=== PATIENT | male | born 1960 | race African-American/Black ===

== ENCOUNTER 2017-08-06 14:34 | Inpatient (IN) | payer MEDICAID ==
[~2017-08-06] VITALS: Ht 182.9 cm; Wt 88.9 kg
[~2017-08-06 14:34] MED LIST: ASPI81CH43 PO; CARV3.1240 PO; FURO40TA PO; LISI-275 PO; METF-370 PO; SPIR25TA89 PO; WARF5TAB71 PO
[2017-08-06 15:46] LABS: Basophils # (auto) 0 uL; Basophils % (auto) 0.7 % (0.0-2.0); Eosinophils # (auto) 0.1 uL; Eosinophils % (auto) 1.7 % (0.0-7.0); Hematocrit 47.7 % (41.0-53.0); Hemoglobin 15.9 g/dL (13.5-17.5); Lymphocytes % (auto) 18.2 % (10.0-50.0); Mean Corpuscular Hemoglobin 32.3 pg (28.0-32.0); Mean Corpuscular Hgb Conc. 33.4 g/dL (32.0-36.0); Mean Corpuscular Volume 96.6 fL (80.0-100.0); Monocytes # (auto) 0.6 uL; Neutrophils % (auto) 69.4 % (37.0-80.0); Nucleated Red Blood Cells % 0.2 %; Platelet Count (auto) 187 10^3/uL (140-450); Red Blood Cells 4.94 10^6/uL (4.5-5.90); Red Cell Distribution Width 16.6 % (11.8-14.3); White Blood Cell 5.7 10^3/uL (4.4-10.8)
[2017-08-06 16:06] LABS: Albumin 3.6 g/dL (3.4-5.0); Calcium 8.4 mg/dL (8.5-10.1); Magnesium 2.3 mg/dL (1.6-2.6); Potassium 4.2 mmol/L (3.5-5.1); Total Protein 6.7 g/dL (6.4-8.2)
[2017-08-06] MEDS ORDERED: MORPHINE SULF INJ 2 MG/ML SYRINGE 1ML IV PRN ×2 (17:15)
[2017-08-06] MEDS ORDERED: ZOLPIDEM TARTRATE 5 MG TAB PO PRN (17:15)
[2017-08-06] MEDS ORDERED: ACETAMINOPHEN 325 MG TAB PO PRN (17:15)
[2017-08-06] MEDS ORDERED: NITROGLYCERIN 0.4 MG SL TAB SL PRN ×2 (17:15)
[2017-08-06] MEDS ORDERED: ONDANSETRON HCL 4 MG/2 ML VIAL IV PRN (17:15)
[2017-08-06] MEDS ORDERED: ALUM & MAG HYDROX-SIMETH LIQ(MAALOX) 30 ML PO ONE (17:15)
[2017-08-06] MEDS ORDERED: DEXTROSE (50%) 50ML SYRG IV PRN (17:30)
[2017-08-06 18:43] LABS: INR 1.19 (0.9-1.15)
[2017-08-06] MEDS: CARVEDILOL 3.125 MG TAB PO SCH (21:44)
[2017-08-06] MEDS: InsuLIN REG 1unit/0.01ml Soln (100units/ml) SC SCH (21:44)
[2017-08-06] MEDS: ATORVASTATIN 20 MG TAB PO SCH (21:44)
[2017-08-06] MEDS: SODIUM CHLOR 0.9% PF (SALINE LOCK) 10ML VIAL IV SCH (21:53)
[2017-08-06] MEDS: diphenhdrAMINE HCL 25 MG CAP PO PRN (21:53)
[2017-08-06] MEDS: LORazepam 0.5 MG TAB PO PRN (21:53)
[2017-08-06] MEDS: ACCU-CHEK COMFORT CURVE STRIP VI SCH (21:53)
[2017-08-07] VITALS (7 sets, daily range): BP systolic 99–123; BP diastolic 45–80
[2017-08-07 05:35] LABS: Basophils # (auto) 0 uL; Basophils % (auto) 0.6 % (0.0-2.0); Eosinophils # (auto) 0.2 uL; Eosinophils % (auto) 3.2 % (0.0-7.0); Hematocrit 45.8 % (41.0-53.0); Hemoglobin 15.2 g/dL (13.5-17.5); Lymphocytes # (auto) 1.1 uL; Lymphocytes % (auto) 19.5 % (10.0-50.0); Mean Corpuscular Hemoglobin 31.8 pg (28.0-32.0); Mean Corpuscular Hgb Conc. 33.1 g/dL (32.0-36.0); Mean Corpuscular Volume 96.1 fL (80.0-100.0); Monocytes # (auto) 0.5 uL; Monocytes % (auto) 8.9 % (0.0-12.0); Neutrophils % (auto) 67.8 % (37.0-80.0); Nucleated Red Blood Cells % 0.1 %; Platelet Count (auto) 181 10^3/uL (140-450); Red Blood Cells 4.76 10^6/uL (4.5-5.90); Red Cell Distribution Width 16.4 % (11.8-14.3); White Blood Cell 5.9 10^3/uL (4.4-10.8)
[2017-08-07] MEDS: SODIUM CHLOR 0.9% PF (SALINE LOCK) 10ML VIAL IV SCH ×3 (05:58→21:19)
[2017-08-07] MEDS: InsuLIN REG 1unit/0.01ml Soln (100units/ml) SC SCH ×4 (05:59→21:19)
[2017-08-07 06:06] LABS: Albumin 3.4 g/dL (3.4-5.0); BUN/Creatinine Ratio 28.8; Bilirubin, Total 1.7 mg/dL (0.2-1.0); Calcium 8.7 mg/dL (8.5-10.1); Magnesium 2.1 mg/dL (1.6-2.6); Potassium 4.2 mmol/L (3.5-5.1); Total Protein 6.6 g/dL (6.4-8.2)
[2017-08-07] MEDS: ACCU-CHEK COMFORT CURVE STRIP VI SCH ×4 (06:08→22:00)
[2017-08-07] MEDS: DOCUSATE SOD 100 MG CAP PO SCH (09:50)
[2017-08-07] MEDS: ASPirin 81 mg TAB PO SCH (09:50)
[2017-08-07] MEDS: POTASSIUM CHL 10 Meq TABLET PO SCH (09:51)
[2017-08-07] MEDS: CARVEDILOL 3.125 MG TAB PO SCH ×2 (09:51→21:13)
[2017-08-07] MEDS: FUROSEMIDE 40 MG TAB PO SCH (09:51)
[2017-08-07] MEDS: LISINOPRIL 5 MG TAB PO SCH (09:52)
[2017-08-07] MEDS: CLOPIDOGREL BISULFATE 75 MG TAB PO SCH (09:52)
[2017-08-07] MEDS: ATORVASTATIN 20 MG TAB PO SCH (21:13)
[2017-08-07] MEDS: diphenhdrAMINE HCL 25 MG CAP PO PRN ×3 (21:13→21:19)
[2017-08-08] MEDS: LORazepam 0.5 MG TAB PO PRN ×2 (00:59→20:34)
[2017-08-08] MEDS ORDERED: MORPHINE SULFATE 4 MG/ML SYR/VIAL ONE (02:55)
[2017-08-08 05:00] VITALS: BP 108/71
[2017-08-08] MEDS: InsuLIN REG 1unit/0.01ml Soln (100units/ml) SC SCH ×4 (05:35→19:52)
[2017-08-08] MEDS: ACCU-CHEK COMFORT CURVE STRIP VI SCH ×4 (05:35→22:00)
[2017-08-08] MEDS: SODIUM CHLOR 0.9% PF (SALINE LOCK) 10ML VIAL IV SCH ×3 (05:35→19:52)
[2017-08-08 07:04] LABS: Basophils # (auto) 0.1 uL; Basophils % (auto) 1.4 % (0.0-2.0); Eosinophils # (auto) 0.2 uL; Eosinophils % (auto) 2.7 % (0.0-7.0); Hematocrit 47.3 % (41.0-53.0); Lymphocytes # (auto) 1.1 uL; Lymphocytes % (auto) 17.6 % (10.0-50.0); Mean Corpuscular Hemoglobin 32.4 pg (28.0-32.0); Mean Corpuscular Hgb Conc. 33.8 g/dL (32.0-36.0); Mean Corpuscular Volume 95.9 fL (80.0-100.0); Monocytes # (auto) 0.5 uL; Monocytes % (auto) 8.8 % (0.0-12.0); Neutrophils # (auto) 4.2 uL; Neutrophils % (auto) 69.5 % (37.0-80.0); Nucleated Red Blood Cells % 0.2 %; Platelet Count (auto) 177 10^3/uL (140-450); Red Blood Cells 4.94 10^6/uL (4.5-5.90); White Blood Cell 6.1 10^3/uL (4.4-10.8)
[2017-08-08 07:40] LABS: Albumin 3.7 g/dL (3.4-5.0); BUN/Creatinine Ratio 22.3; Bilirubin, Total 2.1 mg/dL (0.2-1.0); Calcium 8.8 mg/dL (8.5-10.1); Potassium 4.6 mmol/L (3.5-5.1); Total Protein 7.2 g/dL (6.4-8.2)
[2017-08-08 08:00] VITALS: BP 108/77
[2017-08-08 08:52] VITALS: BP 108/77
[2017-08-08] MEDS: DOCUSATE SOD 100 MG CAP PO SCH (08:57)
[2017-08-08] MEDS: ASPirin 81 mg TAB PO SCH (08:57)
[2017-08-08] MEDS: CARVEDILOL 3.125 MG TAB PO SCH ×2 (08:59→20:34)
[2017-08-08] MEDS: POTASSIUM CHL 10 Meq TABLET PO SCH (09:00)
[2017-08-08] MEDS: FUROSEMIDE 40 MG TAB PO SCH (09:00)
[2017-08-08] MEDS: CLOPIDOGREL BISULFATE 75 MG TAB PO SCH (09:01)
[2017-08-08] MEDS: LISINOPRIL 5 MG TAB PO SCH (09:01)
[2017-08-08 13:00] VITALS: BP 102/55
[2017-08-08 17:00] VITALS: BP 111/74
[2017-08-08 19:23] LABS: INR 1.38 (0.9-1.15); Partial Thromboplastin Time 30.3 sec (22.64-33.71); Prothrombin Time 15.1 sec (9.37-12.3)
[2017-08-08 22:00] VITALS: BP 110/79
[2017-08-08] MEDS: ATORVASTATIN 20 MG TAB PO SCH (22:00)
[2017-08-09 05:20] VITALS: BP 103/66
[2017-08-09] MEDS: SODIUM CHLOR 0.9% PF (SALINE LOCK) 10ML VIAL IV SCH ×3 (06:26→22:30)
[2017-08-09] MEDS: InsuLIN REG 1unit/0.01ml Soln (100units/ml) SC SCH ×4 (06:26→22:00)
[2017-08-09] MEDS: ACCU-CHEK COMFORT CURVE STRIP VI SCH ×4 (06:27→22:31)
[2017-08-09 08:00] VITALS: BP 115/75
[2017-08-09 09:00] VITALS: BP 116/81
[2017-08-09] MEDS: CLOPIDOGREL BISULFATE 75 MG TAB PO SCH (10:00)
[2017-08-09] MEDS: ASPirin 81 mg TAB PO SCH (10:00)
[2017-08-09] MEDS: LISINOPRIL 5 MG TAB PO SCH (10:11)
[2017-08-09] MEDS: FUROSEMIDE 40 MG TAB PO SCH (10:12)
[2017-08-09] MEDS: CARVEDILOL 3.125 MG TAB PO SCH ×2 (10:14→22:18)
[2017-08-09] MEDS: POTASSIUM CHL 10 Meq TABLET PO SCH (10:16)
[2017-08-09] MEDS: DOCUSATE SOD 100 MG CAP PO SCH (10:25)
[2017-08-09] MEDS ORDERED: LIDOCAINE 2%HCL (LOCAL ANESTH.) INJ 20ML MDV ONE ×2 (11:17→12:13)
[2017-08-09] MEDS ORDERED: IOHEXOL 350 MG/ML 100ML IJ ONE (11:19)
[2017-08-09] MEDS ORDERED: VANCOMYCIN HCL 1000 MG VL ONE (11:20)
[2017-08-09] MEDS ORDERED: ceFAZolin 1GM/50ML 50 ML IV ONE (11:20)
[2017-08-09] MEDS ORDERED: VANCOMYCIN 1GM/250ML 250 ML IV ONE (11:20)
[2017-08-09] MEDS ORDERED: fentaNYL CITRATE 100 MCG/2 ML VL ONE (11:40)
[2017-08-09] MEDS ORDERED: MIDAZOLAM HCL 1MG/1ML-2 ML VIAL ONE ×2 (11:41→12:05)
[2017-08-09] MEDS ORDERED: ceFAZolin 1GM VL ONE (13:00)
[2017-08-09] MEDS ORDERED: SODIUM CHLORIDE 0.9% 1,000 ML IV SCH (13:35)
[2017-08-09 17:00] VITALS: BP 108/77
[2017-08-09] MEDS: HYDROcodone-ACET 5/325MG TAB PO PRN (17:41)
[2017-08-09 22:00] VITALS: BP 127/75
[2017-08-09] MEDS ORDERED: VANCOMYCIN 1GM/250ML 250 ML IV SCH (22:00)
[2017-08-09] MEDS: ATORVASTATIN 20 MG TAB PO SCH (22:18)
[2017-08-09] MEDS: MORPHINE SULFATE 10 MG/ML INJ 1ML SDV IV PRN (23:37)
[2017-08-10 05:26] VITALS: BP 108/72
[2017-08-10] MEDS: SODIUM CHLOR 0.9% PF (SALINE LOCK) 10ML VIAL IV SCH ×3 (06:28→21:55)
[2017-08-10] MEDS: InsuLIN REG 1unit/0.01ml Soln (100units/ml) SC SCH ×4 (06:28→21:56)
[2017-08-10] MEDS: ACCU-CHEK COMFORT CURVE STRIP VI SCH ×4 (06:28→21:56)
[2017-08-10] MEDS: MORPHINE SULFATE 10 MG/ML INJ 1ML SDV IV PRN ×3 (06:34→20:50)
[2017-08-10 08:00] VITALS: BP 103/67
[2017-08-10 09:00] VITALS: BP 103/67
[2017-08-10] MEDS: DOCUSATE SOD 100 MG CAP PO SCH (09:52)
[2017-08-10] MEDS: ASPirin 81 mg TAB PO SCH (09:52)
[2017-08-10] MEDS: POTASSIUM CHL 10 Meq TABLET PO SCH (09:53)
[2017-08-10] MEDS: CARVEDILOL 3.125 MG TAB PO SCH ×2 (09:53→21:56)
[2017-08-10] MEDS: FUROSEMIDE 40 MG TAB PO SCH (09:54)
[2017-08-10] MEDS: LISINOPRIL 5 MG TAB PO SCH (09:54)
[2017-08-10] MEDS: CLOPIDOGREL BISULFATE 75 MG TAB PO SCH (09:54)
[2017-08-10] MEDS: HYDROcodone-ACET 5/325MG TAB PO PRN (09:55)
[2017-08-10 13:00] VITALS: BP 102/53
[2017-08-10 17:00] VITALS: BP 96/63
[2017-08-10] MEDS: ATORVASTATIN 20 MG TAB PO SCH (21:56)
[2017-08-10 22:00] VITALS: BP 101/73
[2017-08-11] MEDS: HYDROcodone-ACET 5/325MG TAB PO PRN (01:28)
[2017-08-11 05:00] VITALS: BP 109/78
[2017-08-11] MEDS: SODIUM CHLOR 0.9% PF (SALINE LOCK) 10ML VIAL IV SCH (05:48)
[2017-08-11] MEDS: ACCU-CHEK COMFORT CURVE STRIP VI SCH ×2 (06:16→11:30)
[2017-08-11] MEDS: MORPHINE SULFATE 10 MG/ML INJ 1ML SDV IV PRN (06:17)
[2017-08-11] MEDS: InsuLIN REG 1unit/0.01ml Soln (100units/ml) SC SCH ×2 (06:17→11:30)
[2017-08-11 06:46] LABS: Basophils # (auto) 0 uL; Basophils % (auto) 0.4 % (0.0-2.0); Eosinophils # (auto) 0.1 uL; Eosinophils % (auto) 2.1 % (0.0-7.0); Hemoglobin 14.4 g/dL (13.5-17.5); Lymphocytes # (auto) 1.1 uL; Mean Corpuscular Hemoglobin 32.4 pg (28.0-32.0); Mean Corpuscular Hgb Conc. 33.5 g/dL (32.0-36.0); Mean Corpuscular Volume 96.7 fL (80.0-100.0); Monocytes # (auto) 0.7 uL; Monocytes % (auto) 12.7 % (0.0-12.0); Neutrophils # (auto) 3.6 uL; Neutrophils % (auto) 64.8 % (37.0-80.0); Nucleated Red Blood Cells % 0.2 %; Platelet Count (auto) 165 10^3/uL (140-450); Red Blood Cells 4.44 10^6/uL (4.5-5.90); Red Cell Distribution Width 16.3 % (11.8-14.3); White Blood Cell 5.6 10^3/uL (4.4-10.8)
[2017-08-11 07:05] LABS: BUN/Creatinine Ratio 24.4; Calcium 8.8 mg/dL (8.5-10.1); Magnesium 2.1 mg/dL (1.6-2.6); Potassium 3.9 mmol/L (3.5-5.1)
[2017-08-11 09:00] VITALS: BP 114/57
[2017-08-11] MEDS: DOCUSATE SOD 100 MG CAP PO SCH (10:00)
[2017-08-11] MEDS: CLOPIDOGREL BISULFATE 75 MG TAB PO SCH (10:03)
[2017-08-11] MEDS: ASPirin 81 mg TAB PO SCH (10:03)
[2017-08-11] MEDS: CARVEDILOL 3.125 MG TAB PO SCH (10:04)
[2017-08-11] MEDS: POTASSIUM CHL 10 Meq TABLET PO SCH (10:05)
[2017-08-11] MEDS: FUROSEMIDE 40 MG TAB PO SCH (10:05)
[2017-08-11] MEDS: LISINOPRIL 5 MG TAB PO SCH (10:06)
[2017-08-11 11:24] VITALS: BP 114/87
== END 2017-08-11 12:25 | disposition home or self-care (01) | DRG 161 ==
LOC: EDBD 14:34 → ER 14:34 → TELE 14:35 → TELE-WESTW 21:00
PROVIDERS: ADMIT Internal Medicine; ATTEND Internal Medicine
PROC: 0JH609Z Insertion of Cardiac Resynchronization Defibrillator Pulse Generator into Chest Subcutaneous Tissue and Fascia, Open Approach (ICD-10-PCS; principal; 2017-08-09)
PROC: 02HL3KZ Insertion of Defibrillator Lead into Left Ventricle, Percutaneous Approach (ICD-10-PCS; 2017-08-09)
PROC: 02HK3KZ Insertion of Defibrillator Lead into Right Ventricle, Percutaneous Approach (ICD-10-PCS; 2017-08-09)
DX: R07.89 Other chest pain (principal); I50.43 Acute on chronic combined systolic (congestive) and diastolic (congestive) heart failure; I24.9 Acute ischemic heart disease, unspecified; I42.9 Cardiomyopathy, unspecified; E83.51 Hypocalcemia; I25.10 Atherosclerotic heart disease of native coronary artery without angina pectoris; I11.0 Hypertensive heart disease with heart failure; E78.5 Hyperlipidemia, unspecified; R55 Syncope and collapse; I49.3 Ventricular premature depolarization; E11.9 Type 2 diabetes mellitus without complications; Z95.5 Presence of coronary angioplasty implant and graft; Z95.810 Presence of automatic (implantable) cardiac defibrillator; Z82.49 Family history of ischemic heart disease and other diseases of the circulatory system; Z86.718 Personal history of other venous thrombosis and embolism; Z86.711 Personal history of pulmonary embolism; Z88.8 Allergy status to other drugs, medicaments and biological substances
CPT/HCPCS: 33225; 33249; 36415; 71045; 80048; 80053; 80061; 82962; 83036; 83735; 83880; 84443; 84484; 85025; 85610; 85730; 86850; 86900; 86901; 87045; 87081; 87493; 87899; 93005; 94761; 99152; J0690; J2250; J2405

== ENCOUNTER 2017-12-07 13:35 | Inpatient (IN) | payer MEDICAID ==
[~2017-12-07] VITALS: Ht 182.9 cm; Wt 89.8 kg
[2017-12-07] MEDS ORDERED: ONDANSETRON HCL 4 MG/2 ML VIAL IM ONE (14:15)
[2017-12-07] MEDS ORDERED: MORPHINE SULFATE 4 MG/ML SYR/VIAL IV ONE (14:15)
[2017-12-07 14:33] LABS: Basophils # (auto) 0.1 uL; Basophils % (auto) 1.1 % (0.0-2.0); Eosinophils # (auto) 0.1 uL; Eosinophils % (auto) 2.3 % (0.0-7.0); Hematocrit 49.3 % (41.0-53.0); Hemoglobin 16.6 g/dL (13.5-17.5); Lymphocytes # (auto) 1.2 uL; Lymphocytes % (auto) 19.1 % (10.0-50.0); Mean Corpuscular Hemoglobin 31.6 pg (28.0-32.0); Mean Corpuscular Hgb Conc. 33.7 g/dL (32.0-36.0); Mean Corpuscular Volume 93.8 fL (80.0-100.0); Monocytes # (auto) 0.7 uL; Monocytes % (auto) 11.6 % (0.0-12.0); Neutrophils % (auto) 65.9 % (37.0-80.0); Nucleated Red Blood Cells % 0.1 %; Platelet Count (auto) 198 10^3/uL (140-450); Red Blood Cells 5.25 10^6/uL (4.5-5.90); Red Cell Distribution Width 16.6 % (11.8-14.3); White Blood Cell 6.1 10^3/uL (4.4-10.8)
[2017-12-07] MEDS ORDERED: LORazepam 0.5 MG TAB PO PRN (14:45)
[2017-12-07] MEDS ORDERED: ONDANSETRON HCL 4 MG/2 ML VIAL IV ONE (14:45)
[2017-12-07] MEDS ORDERED: DEXTROSE (50%) 50ML SYRG IV PRN (14:45)
[2017-12-07] MEDS ORDERED: MORPHINE SULFATE 4 MG/ML SYR/VIAL IV PRN ×2 (14:45)
[2017-12-07] MEDS ORDERED: ACETAMINOPHEN 500 MG TAB PO PRN (14:45)
[2017-12-07] MEDS ORDERED: PROMETHAZINE HCL 25 MG/ML 1ML IV PRN (14:45)
[2017-12-07] MEDS ORDERED: NITROGLYCERIN 0.4 MG SL TAB SL PRN (14:45)
[2017-12-07 14:46] LABS: INR 1.23 (0.9-1.15); Partial Thromboplastin Time 29.9 sec (22.64-33.71); Prothrombin Time 13.4 sec (9.37-12.3)
[2017-12-07 14:49] LABS: Alanine Aminotransferase 21 U/L (16-61); Albumin 3.5 g/dL (3.4-5.0); Anion Gap 8 (5-15); Aspartate Aminotransferase 19 U/L (15-37); BUN/Creatinine Ratio 18.6; Blood Urea Nitrogen 16 mg/dL (7-18); Calcium 8.6 mg/dL (8.5-10.1); Carbon Dioxide 25 mmol/L (21-32); Chloride 106 mmol/L (98-107); GFR African American 119 mL/min; GFR Non-African American 98 mL/min; Glucose 85 mg/dL (74-106); Potassium 3.9 mmol/L (3.5-5.1); Sodium 139 mmol/L (136-145)
[2017-12-07] MEDS: CARVEDILOL 3.125 MG TAB PO SCH (14:56)
[2017-12-07 15:17] LABS: Alkaline Phosphatase 135 U/L (45-117)
[2017-12-07 15:18] LABS: Bilirubin, Total 1.8 mg/dL (0.2-1.0); Total Protein 7.1 g/dL (6.4-8.2)
[2017-12-07] MEDS ORDERED: WARFARIN SODIUM 2.5 MG TAB PO ONE (17:00)
[2017-12-07] MEDS: ACCU-CHEK COMFORT CURVE STRIP VI SCH ×2 (17:26→21:38)
[2017-12-07] MEDS: InsuLIN REG 1unit/0.01ml Soln (100units/ml) SC SCH ×2 (17:27→22:00)
[2017-12-07 20:00] VITALS: BP 115/71
[2017-12-07] MEDS: MORPHINE SULFATE 8mg/ml INJ SDV IV PRN (21:28)
[2017-12-07] MEDS: ATORVASTATIN 20 MG TAB PO SCH (21:38)
[2017-12-07] MEDS: SODIUM CHLOR 0.9% PF (SALINE LOCK) 10ML VIAL/SYR IV SCH (21:39)
[2017-12-07] MEDS: TEMAZEPAM 15 MG CAP PO PRN (23:14)
[2017-12-08 04:45] VITALS: BP 108/68
[2017-12-08] MEDS: SODIUM CHLOR 0.9% PF (SALINE LOCK) 10ML VIAL/SYR IV SCH ×3 (06:00→21:32)
[2017-12-08] MEDS: ACCU-CHEK COMFORT CURVE STRIP VI SCH ×4 (06:36→21:32)
[2017-12-08] MEDS: InsuLIN REG 1unit/0.01ml Soln (100units/ml) SC SCH ×4 (06:49→22:00)
[2017-12-08] MEDS: MORPHINE SULFATE 8mg/ml INJ SDV IV PRN ×3 (06:59→21:31)
[2017-12-08 07:18] LABS: INR 1.16 (0.9-1.15); Partial Thromboplastin Time 29.1 sec (22.64-33.71); Prothrombin Time 12.7 sec (9.37-12.3)
[2017-12-08 07:22] LABS: Cholesterol 124 mg/dL (< 200); HDL Cholesterol 31 mg/dL (40-59); LDL Cholesterol 99 mg/dL (< 100); Triglycerides 87 mg/dL (< 150)
[2017-12-08 09:00] VITALS: BP 116/73
[2017-12-08] MEDS ORDERED: BUMETANIDE (0.25MG/ML) 4 ML VIAL IV ONE (10:00)
[2017-12-08] MEDS: CARVEDILOL 3.125 MG TAB PO SCH (10:00)
[2017-12-08] MEDS ORDERED: FUROSEMIDE 40 MG TAB PO SCH (10:00)
[2017-12-08] MEDS ORDERED: FUROSEMIDE 40 MG/4 ML VIAL IV ONE (10:30)
[2017-12-08] MEDS: PANTOPRAZOLE 40 MG TAB PO SCH (10:49)
[2017-12-08] MEDS: LISINOPRIL 5 MG TAB PO SCH (10:49)
[2017-12-08] MEDS: ASPirin 81 mg TAB PO SCH (10:50)
[2017-12-08] MEDS: NITROGLYCERIN 0.2MG/HR TOPICAL PATCH TD SCH (10:50)
[2017-12-08] MEDS: SPIRONOLACTONE 25 MG TAB PO SCH (10:52)
[2017-12-08 13:00] VITALS: BP 109/79
[2017-12-08 16:40] VITALS: BP 119/59
[2017-12-08] MEDS ORDERED: WARFARIN SODIUM 10 MG TAB PO ONE (17:00)
[2017-12-08] MEDS: ATORVASTATIN 20 MG TAB PO SCH (21:32)
[2017-12-08 22:00] VITALS: BP 105/66
[2017-12-08] MEDS: TEMAZEPAM 15 MG CAP PO PRN (22:59)
[2017-12-09 05:42] VITALS: BP 104/72
[2017-12-09] MEDS: SODIUM CHLOR 0.9% PF (SALINE LOCK) 10ML VIAL/SYR IV SCH ×3 (06:00→22:25)
[2017-12-09] MEDS: InsuLIN REG 1unit/0.01ml Soln (100units/ml) SC SCH ×4 (06:34→21:45)
[2017-12-09] MEDS: ACCU-CHEK COMFORT CURVE STRIP VI SCH ×4 (06:34→21:44)
[2017-12-09] MEDS: MORPHINE SULFATE 8mg/ml INJ SDV IV PRN ×3 (06:56→22:24)
[2017-12-09 07:23] LABS: Basophils # (auto) 0 uL; Basophils % (auto) 0.8 % (0.0-2.0); Eosinophils # (auto) 0.2 uL; Eosinophils % (auto) 4.7 % (0.0-7.0); Hematocrit 48.6 % (41.0-53.0); Hemoglobin 16.5 g/dL (13.5-17.5); Lymphocytes # (auto) 1.2 uL; Lymphocytes % (auto) 22.1 % (10.0-50.0); Mean Corpuscular Hemoglobin 31.6 pg (28.0-32.0); Mean Corpuscular Hgb Conc. 33.9 g/dL (32.0-36.0); Mean Corpuscular Volume 93.2 fL (80.0-100.0); Monocytes # (auto) 0.6 uL; Monocytes % (auto) 11.6 % (0.0-12.0); Neutrophils # (auto) 3.2 uL; Neutrophils % (auto) 60.8 % (37.0-80.0); Nucleated Red Blood Cells % 0.2 %; Platelet Count (auto) 206 10^3/uL (140-450); Red Blood Cells 5.21 10^6/uL (4.5-5.90); Red Cell Distribution Width 16.5 % (11.8-14.3); White Blood Cell 5.2 10^3/uL (4.4-10.8)
[2017-12-09 07:31] LABS: INR 1.16 (0.9-1.15); Partial Thromboplastin Time 29.9 sec (23.78-33.04); Prothrombin Time 12.3 sec (9.27-12.13)
[2017-12-09 07:54] LABS: Albumin 3.5 g/dL (3.4-5.0); BUN/Creatinine Ratio 22.2; Bilirubin, Total 1.1 mg/dL (0.2-1.0); Calcium 8.9 mg/dL (8.5-10.1); Potassium 3.8 mmol/L (3.5-5.1); Total Protein 7.1 g/dL (6.4-8.2)
[2017-12-09 09:00] VITALS: BP 106/68
[2017-12-09] MEDS: ASPirin 81 mg TAB PO SCH (09:32)
[2017-12-09] MEDS: CARVEDILOL 3.125 MG TAB PO SCH ×7 (09:33→18:26)
[2017-12-09] MEDS: SPIRONOLACTONE 25 MG TAB PO SCH (09:34)
[2017-12-09] MEDS: LISINOPRIL 5 MG TAB PO SCH (09:34)
[2017-12-09] MEDS: PANTOPRAZOLE 40 MG TAB PO SCH (09:34)
[2017-12-09] MEDS: NITROGLYCERIN 0.2MG/HR TOPICAL PATCH TD SCH (09:35)
[2017-12-09] MEDS ORDERED: FUROSEMIDE 40 MG/4 ML VIAL IV SCH (10:00)
[2017-12-09 13:00] VITALS: BP 88/63
[2017-12-09 16:45] VITALS: BP 97/63
[2017-12-09] MEDS: TEMAZEPAM 15 MG CAP PO PRN (22:24)
[2017-12-09] MEDS: ATORVASTATIN 20 MG TAB PO SCH (22:24)
[2017-12-09 22:38] VITALS: BP 114/70
[2017-12-09] MEDS: HYDROcodone-ACET 5/325MG TAB PO PRN (22:43)
[2017-12-10 05:24] VITALS: BP 109/78
[2017-12-10] MEDS: SODIUM CHLOR 0.9% PF (SALINE LOCK) 10ML VIAL/SYR IV SCH (06:00)
[2017-12-10 06:51] LABS: Potassium 4.2 mmol/L (3.5-5.1)
[2017-12-10] MEDS: InsuLIN REG 1unit/0.01ml Soln (100units/ml) SC SCH (07:00)
[2017-12-10] MEDS: ACCU-CHEK COMFORT CURVE STRIP VI SCH (07:03)
[2017-12-10] MEDS: HYDROcodone-ACET 5/325MG TAB PO PRN (07:21)
[2017-12-10 08:03] VITALS: BP 109/63
[2017-12-10] MEDS: ASPirin 81 mg TAB PO SCH (09:34)
[2017-12-10] MEDS: LISINOPRIL 5 MG TAB PO SCH (09:34)
[2017-12-10] MEDS: PANTOPRAZOLE 40 MG TAB PO SCH (09:35)
[2017-12-10] MEDS: SPIRONOLACTONE 25 MG TAB PO SCH (09:35)
[2017-12-10] MEDS: NITROGLYCERIN 0.2MG/HR TOPICAL PATCH TD SCH (09:37)
[2017-12-10] MEDS ORDERED: FUROSEMIDE 40 MG TAB PO ONE (10:45)
[2017-12-10 11:18] VITALS: BP 109/63
[2017-12-10 11:59] VITALS: BP 109/73
[2017-12-11] MEDS ORDERED: FUROSEMIDE 40 MG TAB PO SCH (10:00)
== END 2017-12-10 12:10 | disposition home or self-care (01) | DRG 194 ==
LOC: EDBD 13:35 → ER 13:37 → TELE 13:38 → TELE-WESTW 18:22
PROVIDERS: ADMIT Internal Medicine; ATTEND Internal Medicine
DX: I11.0 Hypertensive heart disease with heart failure (principal); I24.9 Acute ischemic heart disease, unspecified; I42.9 Cardiomyopathy, unspecified; I50.33 Acute on chronic diastolic (congestive) heart failure; E11.9 Type 2 diabetes mellitus without complications; J44.9 Chronic obstructive pulmonary disease, unspecified; I25.10 Atherosclerotic heart disease of native coronary artery without angina pectoris; Z82.49 Family history of ischemic heart disease and other diseases of the circulatory system; Z83.3 Family history of diabetes mellitus; Z86.718 Personal history of other venous thrombosis and embolism; Z95.5 Presence of coronary angioplasty implant and graft; Z95.810 Presence of automatic (implantable) cardiac defibrillator; E78.5 Hyperlipidemia, unspecified; Z91.013 Allergy to seafood
CPT/HCPCS: 36415; 71046; 80048; 80053; 80061; 82550; 82962; 83036; 83735; 83880; 84443; 84484; 85025; 85379; 85610; 85652; 85730; 86141; 93005; 94761; 96374; 96375; J1815; J2270; J2405

== ENCOUNTER 2018-04-12 11:28 | Inpatient (IN) | payer MEDICAID ==
[~2018-04-12] VITALS: Ht 182.9 cm; Wt 89.5 kg
[~2018-04-12 11:28] MED LIST changes: +SPIR25TA8 PO; -SPIR25TA89 PO; -WARF5TAB71 PO
[2018-04-12 11:59] LABS: Basophils # (auto) 0 uL; Basophils % (auto) 0.6 % (0.0-2.0); Eosinophils # (auto) 0.1 uL; Eosinophils % (auto) 2.5 % (0.0-7.0); Hematocrit 46.8 % (41.0-53.0); Lymphocytes # (auto) 0.9 uL; Lymphocytes % (auto) 17.4 % (10.0-50.0); Mean Corpuscular Hemoglobin 32.9 pg (28.0-32.0); Mean Corpuscular Hgb Conc. 34.2 g/dL (32.0-36.0); Mean Corpuscular Volume 96.3 fL (80.0-100.0); Monocytes # (auto) 0.5 uL; Neutrophils # (auto) 3.7 uL; Neutrophils % (auto) 70.5 % (37.0-80.0); Nucleated Red Blood Cells % 0.2 %; Platelet Count (auto) 194 10^3/uL (140-450); Red Blood Cells 4.86 10^6/uL (4.5-5.90); Red Cell Distribution Width 14.9 % (11.8-14.3); White Blood Cell 5.3 10^3/uL (4.4-10.8)
[2018-04-12 12:20] LABS: Albumin 3.6 g/dL (3.4-5.0); BUN/Creatinine Ratio 18.9; Bilirubin, Total 0.8 mg/dL (0.2-1.0); Calcium 8.6 mg/dL (8.5-10.1); Magnesium 2.4 mg/dL (1.6-2.6); Potassium 4.3 mmol/L (3.5-5.1); Total Protein 6.9 g/dL (6.4-8.2)
[2018-04-12] MEDS ORDERED: FUROSEMIDE 40 MG/4 ML VIAL IV ONE (14:15)
[2018-04-12] MEDS ORDERED: NITROGLYCERIN 0.4 MG SL TAB SL PRN (15:15)
[2018-04-12] MEDS ORDERED: ONDANSETRON HCL 4 MG/2 ML VIAL IV PRN (15:15)
[2018-04-12] MEDS ORDERED: LACTULOSE 20Gm/30ML SOLN PO PRN (15:15)
[2018-04-12] MEDS ORDERED: MORPHINE SULFATE 4 MG/ML SYR/VIAL IV PRN (15:15)
[2018-04-12] MEDS ORDERED: TEMAZEPAM 15 MG CAP PO PRN (15:15)
[2018-04-12] MEDS ORDERED: LORazepam 0.5 MG TAB PO PRN (15:15)
[2018-04-12] MEDS ORDERED: ACETAMINOPHEN 500 MG TAB PO PRN (15:15)
[2018-04-12] MEDS ORDERED: DEXTROSE (50%) 50ML SYRG IV PRN (15:15)
[2018-04-12] MEDS ORDERED: traMADol HCL 50 MG TAB PO PRN (15:15)
[2018-04-12] MEDS: ACCU-CHEK COMFORT CURVE STRIP VI SCH ×2 (17:24→21:47)
[2018-04-12] MEDS: InsuLIN REG 1unit/0.01ml Soln (100units/ml) SC SCH ×2 (17:30→21:47)
[2018-04-12] MEDS: SPIRONOLACTONE 25 MG TAB PO SCH (17:31)
[2018-04-12 19:19] VITALS: BP 100/63
[2018-04-12 20:10] LABS: Alcohol, Urine < 3.0 mg/dL (0-5); Amphetamine Screen, Urine NEGATIVE (NEGATIVE); Barbiturate Scree,Urine NEGATIVE (NEGATIVE); Benzodiazephine Screen, Urine NEGATIVE (NEGATIVE); Cannabinoid Screen, Urine NEGATIVE (NEGATIVE); Cocaine Screen, Urine NEGATIVE (NEGATIVE); Opiate Scree,Urine NEGATIVE (NEGATIVE); Phencyclidine Screen, Urine NEGATIVE (NEGATIVE)
[2018-04-12] MEDS: SODIUM CHLOR 0.9% PF (SALINE LOCK) 10ML VIAL/SYR IV SCH (21:40)
[2018-04-12] MEDS: ATORVASTATIN 20 MG TAB PO SCH (21:40)
[2018-04-12] MEDS: CARVEDILOL 3.125 MG TAB PO SCH (21:40)
[2018-04-12 22:00] VITALS: BP 106/66
[2018-04-12] MEDS ORDERED: PATIENTS OWN MEDICATION (Lisinopril 1 TAB) PO SCH (22:00)
[2018-04-12] MEDS ORDERED: ATOR10TA PO (23:26)
[2018-04-13 05:00] VITALS: BP 109/63
[2018-04-13] MEDS: SODIUM CHLOR 0.9% PF (SALINE LOCK) 10ML VIAL/SYR IV SCH ×3 (06:15→21:45)
[2018-04-13] MEDS: SPIRONOLACTONE 25 MG TAB PO SCH ×2 (06:17→17:31)
[2018-04-13 06:23] LABS: Cholesterol 150 mg/dL (< 200); HDL Cholesterol 39 mg/dL (40-59); LDL Cholesterol 112 mg/dL (< 100); Triglycerides 87 mg/dL (< 150)
[2018-04-13] MEDS: InsuLIN REG 1unit/0.01ml Soln (100units/ml) SC SCH ×4 (06:57→21:46)
[2018-04-13] MEDS: ACCU-CHEK COMFORT CURVE STRIP VI SCH ×4 (06:57→21:46)
[2018-04-13 08:30] VITALS: BP 103/71
[2018-04-13 09:54] VITALS: BP 103/71
[2018-04-13] MEDS: ENALAPRIL MALEATE 10 MG TAB PO SCH (10:00)
[2018-04-13] MEDS: CARVEDILOL 3.125 MG TAB PO SCH ×2 (10:00→21:46)
[2018-04-13] MEDS: ASPirin 81 mg TAB PO SCH (10:00)
[2018-04-13] MEDS: ENOXAPARIN SOD 40 MG/0.4 ML SYRINGE SC SCH (10:00)
[2018-04-13] MEDS: NITROGLYCERIN 0.2MG/HR TOPICAL PATCH TD SCH (10:01)
[2018-04-13] MEDS: PANTOPRAZOLE 40 MG TAB PO SCH (10:01)
[2018-04-13] MEDS: HYDROcodone-ACET 5/325MG TAB PO PRN ×2 (11:22→17:32)
[2018-04-13 14:58] VITALS: BP 112/74
[2018-04-13 17:04] VITALS: BP 108/71
[2018-04-13 21:30] VITALS: BP 104/72
[2018-04-13] MEDS: ATORVASTATIN 20 MG TAB PO SCH (21:46)
[2018-04-14 05:00] VITALS: BP 107/74
[2018-04-14] MEDS ORDERED: LISI2.5T47 PO (05:16)
[2018-04-14] MEDS ORDERED: CARV12.544 PO (05:16)
[2018-04-14] MEDS ORDERED: ATOR20TA PO (05:16)
[2018-04-14] MEDS ORDERED: NITR0.4S29 SL (05:16)
[2018-04-14] MEDS: SODIUM CHLOR 0.9% PF (SALINE LOCK) 10ML VIAL/SYR IV SCH (06:19)
[2018-04-14] MEDS: SPIRONOLACTONE 25 MG TAB PO SCH (06:20)
[2018-04-14] MEDS: ACCU-CHEK COMFORT CURVE STRIP VI SCH ×2 (06:43→11:36)
[2018-04-14] MEDS: InsuLIN REG 1unit/0.01ml Soln (100units/ml) SC SCH ×2 (06:43→11:30)
[2018-04-14 07:53] LABS: Calcium 8.8 mg/dL (8.5-10.1); Potassium 4.3 mmol/L (3.5-5.1)
[2018-04-14 08:30] VITALS: BP 128/92
[2018-04-14 09:29] VITALS: BP 106/67
[2018-04-14] MEDS: PANTOPRAZOLE 40 MG TAB PO SCH (09:36)
[2018-04-14] MEDS: CARVEDILOL 3.125 MG TAB PO SCH (09:37)
[2018-04-14] MEDS: HYDROcodone-ACET 5/325MG TAB PO PRN (09:37)
[2018-04-14] MEDS: NITROGLYCERIN 0.2MG/HR TOPICAL PATCH TD SCH (09:38)
[2018-04-14] MEDS: ASPirin 81 mg TAB PO SCH (09:39)
[2018-04-14] MEDS: ENOXAPARIN SOD 40 MG/0.4 ML SYRINGE SC SCH (09:43)
[2018-04-14] MEDS: ENALAPRIL MALEATE 10 MG TAB PO SCH (10:00)
== END 2018-04-14 13:35 | disposition left against medical advice (07) | DRG 194 ==
LOC: ER 11:28 → EDBD 11:28 → TELE 11:29 → TELE-CENTR 19:19
PROVIDERS: ADMIT Internal Medicine; ATTEND Internal Medicine
DX: I11.0 Hypertensive heart disease with heart failure (principal); I24.9 Acute ischemic heart disease, unspecified; I42.9 Cardiomyopathy, unspecified; Z53.21 Procedure and treatment not carried out due to patient leaving prior to being seen by health care provider; I34.0 Nonrheumatic mitral (valve) insufficiency; F41.9 Anxiety disorder, unspecified; E78.5 Hyperlipidemia, unspecified; E11.9 Type 2 diabetes mellitus without complications; I25.10 Atherosclerotic heart disease of native coronary artery without angina pectoris; J44.9 Chronic obstructive pulmonary disease, unspecified; Z82.49 Family history of ischemic heart disease and other diseases of the circulatory system; Z91.19 Patient's noncompliance with other medical treatment and regimen; Z95.2 Presence of prosthetic heart valve; Z95.5 Presence of coronary angioplasty implant and graft; Z83.3 Family history of diabetes mellitus; Z91.013 Allergy to seafood; Z95.810 Presence of automatic (implantable) cardiac defibrillator; Z91.09 Other allergy status, other than to drugs and biological substances; I50.43 Acute on chronic combined systolic (congestive) and diastolic (congestive) heart failure
CPT/HCPCS: 36415; 71045; 80048; 80053; 80061; 80307; 82962; 83036; 83735; 83880; 84443; 84484; 85025; 85379; 85652; 86141; 87081; 93005; 93306; 96374; J1815

== ENCOUNTER 2018-07-26 18:13 | Emergency (ER) | payer MEDICAID ==
[~2018-07-26] VITALS: Ht 185.4 cm; Wt 81.6 kg
[~2018-07-26 18:13] MED LIST changes: +ATOR20TA PO; +CARV12.544 PO; -CARV3.1240 PO; -LISI-275 PO; +LISI2.5T47 PO; +NITR0.4S29 SL
[2018-07-26 19:40] LABS: Basophils # (auto) 0 uL; Basophils % (auto) 0.7 % (0.0-2.0); Eosinophils # (auto) 0.3 uL; Hematocrit 48.9 % (41.0-53.0); Hemoglobin 16.2 g/dL (13.5-17.5); Lymphocytes # (auto) 0.7 uL; Lymphocytes % (auto) 13.1 % (10.0-50.0); Mean Corpuscular Hgb Conc. 33.2 g/dL (32.0-36.0); Mean Corpuscular Volume 96.4 fL (80.0-100.0); Monocytes # (auto) 0.6 uL; Monocytes % (auto) 10.8 % (0.0-12.0); Neutrophils # (auto) 3.9 uL; Neutrophils % (auto) 70.4 % (37.0-80.0); Nucleated Red Blood Cells % 0.1 %; Platelet Count (auto) 200 10^3/uL (140-450); Red Blood Cells 5.07 10^6/uL (4.5-5.90); Red Cell Distribution Width 15.6 % (11.8-14.3); White Blood Cell 5.6 10^3/uL (4.4-10.8)
[2018-07-26 19:52] LABS: Alanine Aminotransferase 25 U/L (16-61); Albumin 3.7 g/dL (3.4-5.0); Anion Gap 9 (5-15); Aspartate Aminotransferase 22 U/L (15-37); BUN/Creatinine Ratio 22.7; Blood Urea Nitrogen 20 mg/dL (7-18); Calcium 8.6 mg/dL (8.5-10.1); Carbon Dioxide 24 mmol/L (21-32); Chloride 104 mmol/L (98-107); GFR African American 115 mL/min; GFR Non-African American 95 mL/min; Glucose 103 mg/dL (74-106); Magnesium 2.1 mg/dL (1.6-2.6); Potassium 4.2 mmol/L (3.5-5.1); Sodium 137 mmol/L (136-145)
[2018-07-26 19:57] LABS: Alkaline Phosphatase 205 U/L (45-117); Bilirubin, Total 1.1 mg/dL (0.2-1.0); Total Protein 7.6 g/dL (6.4-8.2)
[2018-07-26 21:05] VITALS: BP 131/90
== END 2018-07-26 21:18 | disposition home or self-care (01) ==
LOC: EDBD 18:13 → ER 18:18
DX: R07.89 Other chest pain (principal); I11.0 Hypertensive heart disease with heart failure; I50.9 Heart failure, unspecified; E11.9 Type 2 diabetes mellitus without complications; E78.5 Hyperlipidemia, unspecified; Z95.0 Presence of cardiac pacemaker; Z98.61 Coronary angioplasty status; Z91.013 Allergy to seafood
CPT/HCPCS: 36415; 71046; 80053; 83735; 83880; 84484; 85025; 93005; 94761

== ENCOUNTER 2018-08-18 12:45 | Emergency (ER) | payer MEDICAID ==
[~2018-08-18] VITALS: Ht 188 cm; Wt 104.3 kg
[2018-08-18 13:39] LABS: Alcohol, Urine < 3.0 mg/dL (0-5); Amphetamine Screen, Urine NEGATIVE (NEGATIVE); Barbiturate Scree,Urine NEGATIVE (NEGATIVE); Benzodiazephine Screen, Urine NEGATIVE (NEGATIVE); Cannabinoid Screen, Urine NEGATIVE (NEGATIVE); Cocaine Screen, Urine NEGATIVE (NEGATIVE); Opiate Scree,Urine NEGATIVE (NEGATIVE); Phencyclidine Screen, Urine NEGATIVE (NEGATIVE)
[2018-08-18 14:51] LABS: Basophils # (auto) 0 uL; Eosinophils # (auto) 0.2 uL; Eosinophils % (auto) 3.7 % (0.0-7.0); Hematocrit 50.9 % (41.0-53.0); Hemoglobin 17.1 g/dL (13.5-17.5); Lymphocytes % (auto) 20.1 % (10.0-50.0); Mean Corpuscular Hemoglobin 31.9 pg (28.0-32.0); Mean Corpuscular Hgb Conc. 33.6 g/dL (32.0-36.0); Mean Corpuscular Volume 95.1 fL (80.0-100.0); Monocytes # (auto) 0.6 uL; Monocytes % (auto) 10.6 % (0.0-12.0); Neutrophils # (auto) 3.4 uL; Neutrophils % (auto) 64.6 % (37.0-80.0); Nucleated Red Blood Cells % 0.3 %; Platelet Count (auto) 243 10^3/uL (140-450); Red Blood Cells 5.35 10^6/uL (4.5-5.90); Red Cell Distribution Width 16.2 % (11.8-14.3); White Blood Cell 5.2 10^3/uL (4.4-10.8)
[2018-08-18 15:07] LABS: INR 1.18 (0.9-1.15); Partial Thromboplastin Time 30.3 sec (23.78-33.04); Prothrombin Time 12.5 sec (9.27-12.13)
[2018-08-18 15:25] LABS: Albumin 3.9 g/dL (3.4-5.0); Anion Gap 3 (5-15); Blood Urea Nitrogen 16 mg/dL (7-18); Calcium 8.8 mg/dL (8.5-10.1); Carbon Dioxide 30 mmol/L (21-32); Chloride 102 mmol/L (98-107); Glucose 71 mg/dL (74-106); Potassium 4.8 mmol/L (3.5-5.1); Sodium 135 mmol/L (136-145)
[2018-08-18 15:31] LABS: Alanine Aminotransferase 32 U/L (16-61); Alkaline Phosphatase 235 U/L (45-117); Aspartate Aminotransferase 26 U/L (15-37); BUN/Creatinine Ratio 17.2; Bilirubin, Total 1.8 mg/dL (0.2-1.0); GFR African American 108 mL/min; GFR Non-African American 89 mL/min; Total Protein 7.9 g/dL (6.4-8.2)
[2018-08-18 17:03] VITALS: BP 113/66
== END 2018-08-18 17:06 | disposition home or self-care (01) ==
LOC: EDBD 12:45 → ER 12:45
DX: R07.89 Other chest pain (principal); I25.119 Atherosclerotic heart disease of native coronary artery with unspecified angina pectoris; E78.5 Hyperlipidemia, unspecified; E11.9 Type 2 diabetes mellitus without complications; I11.0 Hypertensive heart disease with heart failure; I50.9 Heart failure, unspecified; Z95.0 Presence of cardiac pacemaker; Z91.013 Allergy to seafood; Z79.82 Long term (current) use of aspirin; Z79.899 Other long term (current) drug therapy; Z79.84 Long term (current) use of oral hypoglycemic drugs; Z98.61 Coronary angioplasty status
CPT/HCPCS: 36415; 80053; 80307; 83735; 84484; 85025; 85610; 85730; 93005; 94761

== ENCOUNTER 2018-10-03 07:30 | Inpatient (IN) | payer MEDICAID ==
[~2018-10-03] VITALS: Ht 182.9 cm; Wt 88.1 kg
[2018-10-03 08:25] LABS: Basophils # (auto) 0 uL; Basophils % (auto) 0.7 % (0.0-2.0); Eosinophils # (auto) 0.1 uL; Eosinophils % (auto) 2.1 % (0.0-7.0); Hematocrit 47.4 % (41.0-53.0); Hemoglobin 15.7 g/dL (13.5-17.5); Lymphocytes % (auto) 18.5 % (10.0-50.0); Mean Corpuscular Hemoglobin 31.8 pg (28.0-32.0); Mean Corpuscular Hgb Conc. 33.1 g/dL (32.0-36.0); Mean Corpuscular Volume 95.9 fL (80.0-100.0); Monocytes # (auto) 0.6 uL; Monocytes % (auto) 9.8 % (0.0-12.0); Neutrophils # (auto) 3.9 uL; Neutrophils % (auto) 68.9 % (37.0-80.0); Nucleated Red Blood Cells % 0.1 %; Platelet Count (auto) 154 10^3/uL (140-450); Red Blood Cells 4.94 10^6/uL (4.5-5.90); Red Cell Distribution Width 16.9 % (11.8-14.3); White Blood Cell 5.6 10^3/uL (4.4-10.8)
[2018-10-03 08:50] LABS: Albumin 3.5 g/dL (3.4-5.0); Calcium 8.8 mg/dL (8.5-10.1); Potassium 4.4 mmol/L (3.5-5.1)
[2018-10-03 08:52] LABS: BUN/Creatinine Ratio 16.7
[2018-10-03 08:57] LABS: Bilirubin, Total 1.4 mg/dL (0.2-1.0)
[2018-10-03] MEDS ORDERED: FUROSEMIDE 40 MG/4 ML VIAL IV ONE (10:45)
[2018-10-03 11:42] LABS: Urine Bacteria NONE SEEN /hpf (None Seen); Urine Blood TRACE /uL (Negative); Urine Mucus FEW (None Seen); Urine Specific Gravity 1.015 (1.001-1.035); Urine WBC <1 /hpf (0 - 3)
[2018-10-03] MEDS ORDERED: MORPHINE SULF INJ 2 MG/ML SYRINGE 1ML IV PRN (13:45)
[2018-10-03] MEDS ORDERED: ONDANSETRON HCL 4 MG/2 ML VIAL IV PRN (13:45)
--- NOTE | 2018-10-03 17:52 | NUR ---
Telemetry admit from [facility] admitted to Telemetry unit after SBAR received. Patient oriented to JESSENIA coles RN, unit, room, bed, and unit policies regarding patient care and visiting hours. Patient now on continuous telemetry monitoring, tele box #30 and telemetry reading on arrival to unit is . Patient weighed by bedscale and encouraged to call if they need something. All questions and concerns addressed, patient verbalized understanding. Note:
[2018-10-03 18:30] VITALS: BP 113/76
--- NOTE | 2018-10-03 18:58 | NUR ---
END OF SHIFT NOTE PATIENT AWAKE AND ALERT SITTING UP IN BED. NO S/S OF DISTRESS OR SOB NOTED. BED IN LOWEST LOCKED POSITION, CALL LIGHT WITHIN REACH. WILL ENDORSE CARE TO NOC RN.
[2018-10-03 20:00] VITALS: BP 111/82
--- NOTE | 2018-10-03 21:30 | NUR ---
Patient complained of chest pain 03/01, chest pain protocol initiated. V/S taken, O2 administered, EKG done, NTG given SL. Complained of leg cramping too, prn pain med given, will continue to monitor
[2018-10-03] MEDS: NITROGLYCERIN 0.4 MG SL TAB SL PRN ×2 (21:40→21:50)
--- NOTE | 2018-10-03 21:45 | NUR ---
Still has chest pain, 2nd NTG SL given, BP 113/71, HR 72, O2 Sat 97%, will continue to monitor
[2018-10-03 22:00] VITALS: BP 111/82
--- NOTE | 2018-10-03 22:00 | NUR ---
Reassessed patient and chest pain decreased to 6/10, will continue to monitor
[2018-10-03] MEDS: MORPHINE SULF INJ 2 MG/ML SYRINGE 1ML IV PRN (22:02)
--- NOTE | 2018-10-03 23:00 | NUR ---
Updated Dr. Chavez on patient's status. Patient requesting sleeping pill at this time. Order received and acknowledged, will carry out order
[2018-10-03] MEDS: TEMAZEPAM 15 MG CAP PO PRN (23:43)
[2018-10-04] VITALS (7 sets, daily range): BP systolic 107–132; BP diastolic 49–86
--- NOTE | 2018-10-04 06:01 | NUR ---
Patient requested that no information be given to Anne-Marie. Updated next of kin which is Raghavendra (cousin) with password set up [phone]
[2018-10-04 06:38] LABS: Basophils # (auto) 0.1 uL; Basophils % (auto) 1.3 % (0.0-2.0); Eosinophils # (auto) 0.2 uL; Eosinophils % (auto) 4.3 % (0.0-7.0); Hematocrit 48.9 % (41.0-53.0); Hemoglobin 16.6 g/dL (13.5-17.5); Lymphocytes # (auto) 1.5 uL; Lymphocytes % (auto) 27.9 % (10.0-50.0); Mean Corpuscular Hemoglobin 32.5 pg (28.0-32.0); Mean Corpuscular Hgb Conc. 33.8 g/dL (32.0-36.0); Mean Corpuscular Volume 96.1 fL (80.0-100.0); Monocytes # (auto) 0.4 uL; Monocytes % (auto) 8.2 % (0.0-12.0); Neutrophils # (auto) 3.1 uL; Neutrophils % (auto) 58.3 % (37.0-80.0); Nucleated Red Blood Cells % 0.2 %; Platelet Count (auto) 171 10^3/uL (140-450); Red Blood Cells 5.09 10^6/uL (4.5-5.90); Red Cell Distribution Width 17.2 % (11.8-14.3); White Blood Cell 5.3 10^3/uL (4.4-10.8)
[2018-10-04 06:52] LABS: Albumin 3.8 g/dL (3.4-5.0); Calcium 8.9 mg/dL (8.5-10.1); Potassium 4.2 mmol/L (3.5-5.1)
[2018-10-04 07:06] LABS: BUN/Creatinine Ratio 14.6; Bilirubin, Total 1.8 mg/dL (0.2-1.0)
[2018-10-04 07:08] LABS: Total Protein 7.7 g/dL (6.4-8.2)
--- NOTE | 2018-10-04 07:30 | NUR ---
Opening Shift Note Assumed care of patient, awake and alert. No S/S of distress/SOB or pain. Instructed on POC and to call for assist PRN, will continue to monitor for changes Q1hr and PRN.
[2018-10-04] MEDS: BUMETANIDE (0.25MG/ML) 4 ML VIAL IV SCH ×2 (08:27→18:26)
--- NOTE | 2018-10-04 08:49 | NUR ---
IV removal IV DC'd with clean sterile technique, catheter fully intact. Pressure dressing applied to site. Patient tolerated well. NOTE: Removed from left antecubital. patient reported pain to the iv site. Iv started leaking. Decided to change site location.
[2018-10-04] MEDS: SPIRONOLACTONE 25 MG TAB PO SCH (12:28)
[2018-10-04] MEDS: CARVEDILOL 3.125 MG TAB PO SCH ×2 (12:28→22:12)
[2018-10-04] MEDS: LISINOPRIL 10 MG TAB PO SCH (12:28)
--- NOTE | 2018-10-04 12:50 | NUR ---
IV insertion IV access obtained, via clean sterile technique by inserting 22 gauge catheter at right forearm after 5 attempt. IV secured properly. No trauma to site. Patient tolerated well.
[2018-10-04] MEDS: FUROSEMIDE 40 MG/4 ML VIAL IV SCH (13:06)
[2018-10-04] MEDS: MORPHINE SULF INJ 2 MG/ML SYRINGE 1ML IV PRN ×3 (13:08→22:45)
--- NOTE | 2018-10-04 19:40 | NUR ---
Opening Shift Note Assumed care of patient, awake and alert. No S/S of distress/SOB or pain. Updated on POC and to call for assist PRN, patient verbalized understanding, call light within reach, will continue to monitor for changes Q1hr and PRN.
[2018-10-04] MEDS: TEMAZEPAM 15 MG CAP PO PRN (22:12)
[2018-10-05] MEDS: MORPHINE SULF INJ 2 MG/ML SYRINGE 1ML IV PRN ×3 (03:31→15:20)
[2018-10-05 04:41] VITALS: BP 94/67
[2018-10-05 06:20] LABS: Basophils # (auto) 0.1 uL; Basophils % (auto) 1.2 % (0.0-2.0); Eosinophils # (auto) 0.2 uL; Eosinophils % (auto) 4.3 % (0.0-7.0); Hematocrit 50.4 % (41.0-53.0); Lymphocytes # (auto) 1.1 uL; Lymphocytes % (auto) 22.8 % (10.0-50.0); Mean Corpuscular Hgb Conc. 33.8 g/dL (32.0-36.0); Mean Corpuscular Volume 94.7 fL (80.0-100.0); Monocytes # (auto) 0.7 uL; Monocytes % (auto) 13.8 % (0.0-12.0); Neutrophils # (auto) 2.9 uL; Neutrophils % (auto) 57.9 % (37.0-80.0); Nucleated Red Blood Cells % 0.3 %; Platelet Count (auto) 190 10^3/uL (140-450); Red Blood Cells 5.32 10^6/uL (4.5-5.90); Red Cell Distribution Width 16.7 % (11.8-14.3)
[2018-10-05] MEDS: BUMETANIDE (0.25MG/ML) 4 ML VIAL IV SCH (06:28)
[2018-10-05 06:32] LABS: Potassium 4.5 mmol/L (3.5-5.1)
[2018-10-05 06:39] LABS: Albumin 3.7 g/dL (3.4-5.0); BUN/Creatinine Ratio 20.2; Bilirubin, Total 1.2 mg/dL (0.2-1.0); Calcium 9.2 mg/dL (8.5-10.1); Total Protein 7.5 g/dL (6.4-8.2)
[2018-10-05 08:00] VITALS: BP 105/74
[2018-10-05 09:02] VITALS: BP 105/74
[2018-10-05] MEDS: LISINOPRIL 10 MG TAB PO SCH (09:20)
[2018-10-05] MEDS: CARVEDILOL 3.125 MG TAB PO SCH (09:20)
[2018-10-05] MEDS: FUROSEMIDE 40 MG/4 ML VIAL IV SCH (09:21)
[2018-10-05] MEDS: SPIRONOLACTONE 25 MG TAB PO SCH (09:21)
[2018-10-05 12:30] VITALS: BP 90/66
--- NOTE | 2018-10-05 18:35 | NUR ---
Discharge from Tele Discharge instructions given as ordered. Encourage to follow up with PMD as instructed. All questions and concerns addressed. Patient verbalized understanding. IV removed with catheter intact, pressure dressing applied. Telemetry unit returned to ICU. Patient given taxi voucher and taken to lobby with all personal belongings, accompanied by staff and family member. No distress noted at time of departure.
--- NOTE | 2018-10-07 09:14 | NUR ---
vp talent management 10/05/18-I did not receive a page regarding the social service consult on this patient.
== END 2018-10-05 18:45 | disposition home or self-care (01) | DRG 194 ==
LOC: ER 07:30 → EDBD 07:30 → TELE 13:47 → TELE-CENTR 17:52
PROVIDERS: ADMIT Internal Medicine; ATTEND Internal Medicine
DX: I11.0 Hypertensive heart disease with heart failure (principal); J91.8 Pleural effusion in other conditions classified elsewhere; I50.43 Acute on chronic combined systolic (congestive) and diastolic (congestive) heart failure; E11.9 Type 2 diabetes mellitus without complications; I25.10 Atherosclerotic heart disease of native coronary artery without angina pectoris; I25.5 Ischemic cardiomyopathy; E78.5 Hyperlipidemia, unspecified; Z95.810 Presence of automatic (implantable) cardiac defibrillator; Z91.013 Allergy to seafood; Z87.891 Personal history of nicotine dependence; Z82.3 Family history of stroke; Z82.49 Family history of ischemic heart disease and other diseases of the circulatory system; Z83.3 Family history of diabetes mellitus
CPT/HCPCS: 36415; 71046; 80053; 81001; 83735; 83880; 84484; 85025; 93005; 94761; 96374; 96375; G0378

== ENCOUNTER 2018-11-09 16:11 | Emergency (ER) | payer MEDICAID | END 2018-11-09 16:47 | disposition left against medical advice (07) | LOC: ER 16:15 | DX: R21 Rash and other nonspecific skin eruption (principal); Z53.21 Procedure and treatment not carried out due to patient leaving prior to being seen by health care provider ==

== ENCOUNTER 2018-12-17 05:18 | Inpatient (IN) | payer MEDICAID ==
[~2018-12-17] VITALS: Ht 182.9 cm; Wt 84.0 kg
[~2018-12-17 05:18] MED LIST changes: +FURO1TAB31 PO; -FURO40TA PO
[2018-12-17 07:14] LABS: Basophils # (auto) 0 uL; Basophils % (auto) 0.6 % (0.0-2.0); Eosinophils # (auto) 0.2 uL; Eosinophils % (auto) 2.3 % (0.0-7.0); Hematocrit 46.8 % (41.0-53.0); Hemoglobin 15.7 g/dL (13.5-17.5); Lymphocytes # (auto) 0.5 uL; Lymphocytes % (auto) 6.2 % (10.0-50.0); Mean Corpuscular Hemoglobin 32.6 pg (28.0-32.0); Mean Corpuscular Hgb Conc. 33.5 g/dL (32.0-36.0); Mean Corpuscular Volume 97.3 fL (80.0-100.0); Monocytes # (auto) 0.7 uL; Monocytes % (auto) 9.6 % (0.0-12.0); Neutrophils # (auto) 6.1 uL; Neutrophils % (auto) 81.3 % (37.0-80.0); Platelet Count (auto) 189 10^3/uL (140-450); Red Blood Cells 4.81 10^6/uL (4.5-5.90); Red Cell Distribution Width 17.3 % (11.8-14.3); White Blood Cell 7.5 10^3/uL (4.4-10.8)
[2018-12-17 07:26] LABS: Alanine Aminotransferase 18 U/L (16-61); Albumin 3.8 g/dL (3.4-5.0); Anion Gap 10 (5-15); Aspartate Aminotransferase 14 U/L (15-37); BUN/Creatinine Ratio 21.7; Blood Urea Nitrogen 18 mg/dL (7-18); Calcium 8.7 mg/dL (8.5-10.1); Carbon Dioxide 22 mmol/L (21-32); Chloride 107 mmol/L (98-107); GFR African American 123 mL/min; GFR Non-African American 102 mL/min; Glucose 108 mg/dL (74-106); Potassium 4.5 mmol/L (3.5-5.1); Sodium 139 mmol/L (136-145)
[2018-12-17 07:31] LABS: Alkaline Phosphatase 137 U/L (45-117); Bilirubin, Total 0.9 mg/dL (0.2-1.0); Total Protein 7.3 g/dL (6.4-8.2)
[2018-12-17] MEDS ORDERED: BUMETANIDE 2.5mg/10ml (0.25 mg/ml) INJ IV ONE (08:00)
[2018-12-17] MEDS ORDERED: MORPHINE SULF INJ 2 MG/ML SYRINGE 1ML IV PRN (12:15)
[2018-12-17] MEDS ORDERED: hydrALAZINE HCL 20 MG/ML VL IV PRN (12:15)
[2018-12-17] MEDS ORDERED: NITROGLYCERIN 0.4 MG SL TAB SL PRN (12:15)
[2018-12-17] MEDS ORDERED: ONDANSETRON HCL 4 MG/2 ML VIAL IV PRN (12:15)
[2018-12-17] MEDS ORDERED: NITROGLYCERIN 0.4 MG SL TAB SL SCH (12:30)
[2018-12-17] MEDS ORDERED: DEXTROSE (50%) 50ML SYRG IV PRN (15:00)
--- NOTE | 2018-12-17 17:25 | NUR ---
Telemetry admit from [facility] admitted to Telemetry unit after SBAR received. Patient oriented to Connie Buitrago RN, unit, room, bed, and unit policies regarding patient care and visiting hours. Patient now on continuous telemetry monitoring, tele box # 27 and telemetry reading on arrival to unit is 107 ST. Patient placed on bedside oxygen at 2 LPM, weighed by bed scale and encouraged to call if he needs something. All questions and concerns addressed, patient verbalized understanding. Note: Temp = 99.9 F. Patient is oriented x4. No acute distress noted.
[2018-12-17 17:32] VITALS: BP 116/80
[2018-12-17] MEDS: ACCU-CHEK COMFORT CURVE STRIP VI SCH ×2 (17:41→22:08)
[2018-12-17] MEDS: InsuLIN REG 1unit/0.01ml Soln (100units/ml) SC SCH ×2 (17:42→22:00)
[2018-12-17] MEDS: metFORMIN HYDROCHLORIDE 500 MG TAB PO SCH (17:48)
[2018-12-17] MEDS ORDERED: ACETAMINOPHEN 500 MG TAB PO PRN (18:30)
--- NOTE | 2018-12-17 18:40 | NUR ---
Dr. Chavez at bedside. ordered IV Bumex 1 mg BID, Carvedilol 25 mg PO BID, Entresto 24-26 mg 1 tab PO BID.
[2018-12-17] MEDS ORDERED: SACU1TAB PO (18:51)
[2018-12-17] MEDS ORDERED: POTA10TA51 PO (18:51)
[2018-12-17] MEDS ORDERED: BUME1TAB3 PO (18:51)
[2018-12-17] MEDS ORDERED: FAMO-12 PO (18:51)
[2018-12-17] MEDS ORDERED: PRE1T PO (18:51)
--- NOTE | 2018-12-17 19:15 | NUR ---
POM endorsed to the Pharmacy.
--- NOTE | 2018-12-17 19:15 | NUR ---
Opening shift note: Assumed care from day nurse. Patient is alert and orient x 4. Patient denies pain at this time. No s/s of distress or sob. Instructed patient on poc and to call for assistance as need. Patient verbalized understanding. Bed in lowest position and call light is within reach.
--- NOTE | 2018-12-17 20:04 | NUR ---
Reassessed temperature Reassessed patient temperature was 100.3; cooling measures were applied. will reassess.
--- NOTE | 2018-12-17 20:35 | NUR ---
Reassessed temperature: Patient's temperature is 98.2. Will continue to monitor.
[2018-12-17 22:00] VITALS: BP 121/76
[2018-12-17] MEDS ORDERED: SPIRONOLACTONE 25 MG TAB PO SCH (22:00)
[2018-12-17] MEDS ORDERED: CARVEDILOL 12.5 MG TAB PO SCH (22:00)
[2018-12-17] MEDS ORDERED: FUROSEMIDE 40 MG TAB PO SCH (22:00)
[2018-12-17] MEDS: CARVEDILOL 12.5 MG TAB PO SCH (22:13)
[2018-12-17] MEDS: SACUBITRIL-VALSARTAN 24mg/26mg TAB PO SCH (22:14)
[2018-12-18] VITALS (7 sets, daily range): BP systolic 95–121; BP diastolic 53–67
[2018-12-18] MEDS: BUMETANIDE 1mg/4ml VIAL (0.25mg/ml) IV SCH ×2 (06:00→18:14)
[2018-12-18] MEDS: InsuLIN REG 1unit/0.01ml Soln (100units/ml) SC SCH ×4 (06:22→22:00)
[2018-12-18] MEDS: ACCU-CHEK COMFORT CURVE STRIP VI SCH ×4 (06:22→22:21)
[2018-12-18] MEDS: metFORMIN HYDROCHLORIDE 500 MG TAB PO SCH ×2 (06:23→18:14)
[2018-12-18 06:48] LABS: Eosinophils # (auto) 0.2 uL; Eosinophils % (auto) 4.7 % (0.0-7.0); Hemoglobin 17.8 g/dL (13.5-17.5); Lymphocytes # (auto) 0.5 uL; Monocytes # (auto) 0.8 uL; Monocytes % (auto) 15.6 % (0.0-12.0); Neutrophils # (auto) 3.4 uL
[2018-12-18 06:55] LABS: Basophils # (auto) 0 uL; Hematocrit 52.2 % (41.0-53.0); Lymphocytes % (auto) 10.3 % (10.0-50.0); Mean Corpuscular Hemoglobin 32.6 pg (28.0-32.0); Mean Corpuscular Hgb Conc. 34.1 g/dL (32.0-36.0); Mean Corpuscular Volume 95.7 fL (80.0-100.0); Neutrophils % (auto) 68.4 % (37.0-80.0); Platelet Count (auto) 182 10^3/uL (140-450); Red Blood Cells 5.45 10^6/uL (4.5-5.90); Red Cell Distribution Width 16.6 % (11.8-14.3); White Blood Cell 4.9 10^3/uL (4.4-10.8)
[2018-12-18 07:09] LABS: Albumin 3.4 g/dL (3.4-5.0); BUN/Creatinine Ratio 24.7; Calcium 8.8 mg/dL (8.5-10.1)
[2018-12-18 07:14] LABS: Bilirubin, Total 1.2 mg/dL (0.2-1.0); Total Protein 7.3 g/dL (6.4-8.2)
--- NOTE | 2018-12-18 07:45 | NUR ---
OPENING SHIFT NOTE ASSUMED CARE OF PATIENT. PATIENT RESTING COMFORTABLY IN BED AT THIS TIME. NO S/S OF DISTRESS OR SOB NOTED BED IN LOWEST LOCKED POSITION, CALL LIGHT WITHIN REACH. WILL CONTINUE TO MONITOR.
--- NOTE | 2018-12-18 09:50 | NUR ---
AT BEDSIDE DR OCHOA AT BEDSIDE AT THIS TIME. NEW ORDERS RECEIVED, READ BACK AND VERIFIED. WILL PLACE ORDERS RECEIVED AND CARRY OUT ORDERED. CONTINUING TO MONITOR PATIENT.
[2018-12-18] MEDS ORDERED: LISINOPRIL 5 MG TAB PO SCH (10:00)
[2018-12-18] MEDS: CARVEDILOL 12.5 MG TAB PO SCH ×2 (10:00→22:07)
[2018-12-18] MEDS ORDERED: ATORVASTATIN 20 MG TAB PO SCH ×2 (10:00→18:00)
[2018-12-18] MEDS: ASPirin 81 mg TAB PO SCH (10:40)
[2018-12-18] MEDS: HYDROcodone-ACET 10/325MG TAB PO PRN (10:40)
[2018-12-18] MEDS: SACUBITRIL-VALSARTAN 24mg/26mg TAB PO SCH ×2 (10:41→22:06)
[2018-12-18] MEDS: AZITHROMYCIN 500MG/ 250ML 250 ML IV SCH (10:41)
--- NOTE | 2018-12-18 12:20 | NUR ---
MD AT BEDSIDE DR NG VERBALIZED PATIENT IS CLEAR TO BE DISCHARGED TOMORROW.
[2018-12-18] MEDS: guaiFENesin 200 MG/10 ML UD PO PRN ×2 (14:32→22:16)
[2018-12-18] MEDS: MORPHINE SULF INJ 2 MG/ML SYRINGE 1ML IV PRN ×2 (18:31→22:20)
--- NOTE | 2018-12-18 19:16 | NUR ---
CLOSING NOTE PATIENT LAYING IN BED WATCHING TV. SHOWING NO S/S OF DISTRESS OR SOB NOTED. BED IN LOWEST LOCKED POSITION CALL LIGHT WITH IN REACH. ENDORSING CARE TO DONAVAN MORSE
--- NOTE | 2018-12-18 19:40 | NUR ---
Opening Shift Note Assumed care of patient, awake and alert. No S/S of distress/SOB. Instructed on POC and to call for assist PRN, patient verbalized understanding, call light within reach, will continue to monitor for changes Q1hr and PRN.
--- NOTE | 2018-12-18 23:00 | NUR ---
Patient requesting a sleeping pill. Dr. Chavez made aware of patient's request. Received an order for Ambien 5 mg prn. Acknowledged and read back, will carry out order
[2018-12-18] MEDS: ZOLPIDEM TARTRATE 5 MG TAB PO PRN (23:20)
[2018-12-19 05:00] VITALS: BP 105/49
[2018-12-19] MEDS: BUMETANIDE 1mg/4ml VIAL (0.25mg/ml) IV SCH ×2 (06:09→18:16)
[2018-12-19] MEDS: metFORMIN HYDROCHLORIDE 500 MG TAB PO SCH ×2 (06:09→18:17)
[2018-12-19] MEDS: ACCU-CHEK COMFORT CURVE STRIP VI SCH ×4 (06:21→21:31)
[2018-12-19] MEDS: InsuLIN REG 1unit/0.01ml Soln (100units/ml) SC SCH ×4 (06:21→21:31)
[2018-12-19 07:42] LABS: Hemoglobin 18.7 g/dL (13.5-17.5); Mean Corpuscular Hemoglobin 33.1 pg (28.0-32.0); Mean Corpuscular Hgb Conc. 34.6 g/dL (32.0-36.0); Mean Corpuscular Volume 95.7 fL (80.0-100.0); Platelet Count (auto) 205 10^3/uL (140-450); Red Blood Cells 5.64 10^6/uL (4.5-5.90); Red Cell Distribution Width 16.4 % (11.8-14.3); White Blood Cell 5.5 10^3/uL (4.4-10.8)
[2018-12-19 07:44] LABS: Band Neutrophils % (manual) 0; Blast Cells 0; Metamyelocytes % 0; Myelocytes % 0; Promyelocytes % 0; Reactive Lymphocytes 0
--- NOTE | 2018-12-19 08:00 | NUR ---
Opening Shift Note Assumed care of patient, awake, alert and oriented X4. No S/S of distress/SOB, complains of generalized abdominal pain, 4/10, denies the need for pain medications at this time. Tele# 27, Paced @ 70 bpm. IV to left hand, 20 gauge, patent and saline locked. Instructed on POC and to call for assist PRN, verbalized understanding. Bed locked, in lowest position, call light within reach, will continue to monitor for changes Q1hr and PRN.
[2018-12-19 08:04] LABS: Albumin 3.8 g/dL (3.4-5.0); Calcium 9.2 mg/dL (8.5-10.1); Potassium 4.1 mmol/L (3.5-5.1)
[2018-12-19 08:08] LABS: BUN/Creatinine Ratio 34.1; Total Protein 7.8 g/dL (6.4-8.2)
[2018-12-19 08:30] VITALS: BP 98/72
[2018-12-19 09:44] LABS: Basophils % (manual) 1 (0.0-2.0); Eosinophils % (manual) 4 (0-7); Lymphocytes % (manual) 15 (10.0-50.0); Monocytes % (manual) 20 (0-12)
[2018-12-19] MEDS: AZITHROMYCIN 500MG/ 250ML 250 ML IV SCH (10:19)
[2018-12-19] MEDS: ASPirin 81 mg TAB PO SCH (10:19)
[2018-12-19] MEDS: CARVEDILOL 12.5 MG TAB PO SCH ×2 (10:21→22:00)
[2018-12-19] MEDS: SACUBITRIL-VALSARTAN 24mg/26mg TAB PO SCH ×2 (10:21→22:00)
[2018-12-19] MEDS: HYDROcodone-ACET 10/325MG TAB PO PRN (11:54)
[2018-12-19 13:00] VITALS: BP 93/48
[2018-12-19 17:28] VITALS: BP 116/84
--- NOTE | 2018-12-19 19:19 | NUR ---
Care endorsed to MINI Bernard, night nurse.
--- NOTE | 2018-12-19 19:52 | NUR ---
Dr Chavez at patient's bedside. with new order to discharge patient to home tomorrow, 12/20/18. Patient verbalized understanding.
[2018-12-19] MEDS: ATORVASTATIN 20 MG TAB PO SCH (21:36)
[2018-12-19] MEDS: guaiFENesin 200 MG/10 ML UD PO PRN (21:39)
[2018-12-19 22:00] VITALS: BP 94/67
--- NOTE | 2018-12-19 22:00 | NUR ---
Patient complaining of 8/10 pain to abdomen and requesting for Morphine. Patient's BP level taken at 94/67. Informed patient, unable to administer Morphine with current BP level. Patient verbalized understanding. Offered warm packs, however, patient refused. Will continue to monitor.
[2018-12-19] MEDS: MORPHINE SULF INJ 2 MG/ML SYRINGE 1ML IV PRN (22:59)
--- NOTE | 2018-12-19 22:59 | NUR ---
Patient's IV to Left hand dislodged. Started new IV line to Right forearm 22 gauge with good blood return. Patient tolerated procedure well.
[2018-12-20] MEDS: ZOLPIDEM TARTRATE 5 MG TAB PO PRN (01:53)
[2018-12-20 05:00] VITALS: BP 102/69
[2018-12-20] MEDS: BUMETANIDE 1mg/4ml VIAL (0.25mg/ml) IV SCH ×2 (06:21→17:44)
[2018-12-20] MEDS: metFORMIN HYDROCHLORIDE 500 MG TAB PO SCH ×2 (06:23→17:44)
[2018-12-20 06:25] LABS: Mean Corpuscular Hgb Conc. 34.4 g/dL (32.0-36.0); White Blood Cell 4.9 10^3/uL (4.4-10.8)
[2018-12-20] MEDS: InsuLIN REG 1unit/0.01ml Soln (100units/ml) SC SCH ×4 (06:25→22:00)
[2018-12-20] MEDS: ACCU-CHEK COMFORT CURVE STRIP VI SCH ×4 (06:25→22:00)
[2018-12-20 06:29] LABS: Hematocrit 52.1 % (41.0-53.0); Mean Corpuscular Hemoglobin 32.7 pg (28.0-32.0); Mean Corpuscular Volume 94.8 fL (80.0-100.0); Platelet Count (auto) 207 10^3/uL (140-450); Red Cell Distribution Width 16.2 % (11.8-14.3)
[2018-12-20 06:42] LABS: Band Neutrophils % (manual) 0; Basophils % (manual) 0 (0.0-2.0); Blast Cells 0; Metamyelocytes % 0; Myelocytes % 0; Promyelocytes % 0; Reactive Lymphocytes 0
[2018-12-20 06:43] LABS: Albumin 3.5 g/dL (3.4-5.0); BUN/Creatinine Ratio 34.5; Calcium 8.9 mg/dL (8.5-10.1); Potassium 4.1 mmol/L (3.5-5.1)
[2018-12-20 06:45] LABS: Bilirubin, Total 1.1 mg/dL (0.2-1.0); Total Protein 7.4 g/dL (6.4-8.2)
--- NOTE | 2018-12-20 07:20 | NUR ---
PT AWAKE, ALERT, AMBULATING IN ROOM. DENIES DISCOMFORT AT MOMENT. REPORTS DRY COUGH, PERSISTENT. IV PRESENT TO RFA #22. BED IN LOWEST POSITION, CALL LIGHT WITHIN REACH. WILL CONTINUE TO MONITOR.
[2018-12-20 07:44] LABS: Eosinophils % (manual) 5 (0-7); Lymphocytes % (manual) 19 (10.0-50.0); Monocytes % (manual) 14 (0-12)
[2018-12-20] MEDS: guaiFENesin 200 MG/10 ML UD PO PRN ×2 (08:44→17:02)
[2018-12-20] MEDS: AZITHROMYCIN 500MG/ 250ML 250 ML IV SCH (08:46)
[2018-12-20 09:00] VITALS: BP 97/61
--- NOTE | 2018-12-20 09:54 | NUR ---
PT HAD EMESIS EPISODE, C/O DIZZINESS. DENIES CHEST PAIN. BP: 92/67 (75), HR:83, 85% ON ROOM AIR. DR. GABRIELA ESPINOSA, WILL MEDICATE PER EMAR.
[2018-12-20] MEDS: SACUBITRIL-VALSARTAN 24mg/26mg TAB PO SCH ×2 (10:00→21:50)
[2018-12-20] MEDS: ASPirin 81 mg TAB PO SCH (10:00)
[2018-12-20] MEDS: CARVEDILOL 12.5 MG TAB PO SCH ×2 (10:00→21:51)
--- NOTE | 2018-12-20 12:24 | NUR ---
DR. MARRERO IN TO SEE PT. MADE AWARE OF EMETIC EPISODE. PER MD, TO HOLD DISCHARGE FOR TODAY AND DISCHARGE ON 12/21/18
[2018-12-20 13:00] VITALS: BP 96/62
[2018-12-20 17:00] VITALS: BP 106/60
[2018-12-20] MEDS: HYDROcodone-ACET 10/325MG TAB PO PRN (17:02)
[2018-12-20] MEDS: ATORVASTATIN 20 MG TAB PO SCH (17:44)
[2018-12-20 20:00] VITALS: BP 106/60
[2018-12-20 21:00] VITALS: BP 111/72
[2018-12-20] MEDS: MORPHINE SULF INJ 2 MG/ML SYRINGE 1ML IV PRN (21:52)
[2018-12-21] MEDS: ZOLPIDEM TARTRATE 5 MG TAB PO PRN (00:06)
[2018-12-21 05:00] VITALS: BP 97/58
[2018-12-21] MEDS: BUMETANIDE 1mg/4ml VIAL (0.25mg/ml) IV SCH (06:01)
[2018-12-21] MEDS: ACCU-CHEK COMFORT CURVE STRIP VI SCH ×2 (06:02→12:27)
[2018-12-21] MEDS: InsuLIN REG 1unit/0.01ml Soln (100units/ml) SC SCH ×2 (06:02→11:30)
[2018-12-21] MEDS: metFORMIN HYDROCHLORIDE 500 MG TAB PO SCH (06:02)
[2018-12-21 06:42] LABS: Basophils # (auto) 0.1 uL; Basophils % (auto) 1.1 % (0.0-2.0); Eosinophils # (auto) 0.2 uL; Hematocrit 49.6 % (41.0-53.0); Hemoglobin 16.9 g/dL (13.5-17.5); Lymphocytes # (auto) 1.6 uL; Lymphocytes % (auto) 30.5 % (10.0-50.0); Mean Corpuscular Hemoglobin 32.6 pg (28.0-32.0); Mean Corpuscular Hgb Conc. 34.1 g/dL (32.0-36.0); Mean Corpuscular Volume 95.7 fL (80.0-100.0); Monocytes # (auto) 0.8 uL; Monocytes % (auto) 15.2 % (0.0-12.0); Neutrophils # (auto) 2.5 uL; Neutrophils % (auto) 49.2 % (37.0-80.0); Nucleated Red Blood Cells % 0.1 %; Platelet Count (auto) 202 10^3/uL (140-450); Red Blood Cells 5.18 10^6/uL (4.5-5.90); Red Cell Distribution Width 16.1 % (11.8-14.3); White Blood Cell 5.1 10^3/uL (4.4-10.8)
[2018-12-21 07:00] LABS: Albumin 3.5 g/dL (3.4-5.0); BUN/Creatinine Ratio 28.7; Calcium 8.5 mg/dL (8.5-10.1); Potassium 3.8 mmol/L (3.5-5.1)
[2018-12-21 07:02] LABS: Bilirubin, Total 1.5 mg/dL (0.2-1.0)
--- NOTE | 2018-12-21 07:20 | NUR ---
PT IN LOW FOWLERS, SLEEPING AT MOMENT. NO S/S OF DISTRESS, EFFORTLESS BREATHING ON ROOM AIR. IV PRESENT TO RFA#22 BED IN LOWEST POSITION, CALL LIGHT WITHIN REACH. WILL CONTINUE TO MONITOR.
[2018-12-21 08:30] VITALS: BP 92/57
[2018-12-21] MEDS: ASPirin 81 mg TAB PO SCH (10:00)
[2018-12-21] MEDS: CARVEDILOL 12.5 MG TAB PO SCH (10:00)
[2018-12-21] MEDS: SACUBITRIL-VALSARTAN 24mg/26mg TAB PO SCH (10:00)
[2018-12-21] MEDS: AZITHROMYCIN 500MG/ 250ML 250 ML IV SCH (10:00)
--- NOTE | 2018-12-21 12:10 | NUR ---
DR. OCHOA SAW PT. OK TO DISCHARGE PER MD. DISCHARGE INSTRUCTIONS PROVIDED TO PT, PT VERBALIZED UNDERSTANDING FOR CONTINUATION OF HOME MEDICATIONS, AND FOLLOW UP APPOINTMENTS WITH DR. OCHOA AND MESSAGING ARCHITECT DR. NG. EDUCATIONAL MATERIAL PROVIDED. IV CATHETER DC'D, INTACT, NO PHLEBITIS, TELE BOX REMOVED AND RETURNED TO [facility]. PT'S OWN MEDICATIONS OBTAINED FROM PHARMACY AND GIVEN TO PT, PT REVIEWED CONTENTS AND AGREED. TAXI VOUCHER OBTAINED. PT TAKEN SAFELY TO [facility] VIA WHEELCHAIR FOR TAXI BOARD OPERATOR AND TRANSPORT HOME.
[2019-02-09] MEDS ORDERED: SACU1TAB7 PO (00:35)
[2019-02-09] MEDS ORDERED: PRED1PAK10 PO (00:35)
[2019-02-09] MEDS ORDERED: CARV25TA55 PO (00:35)
[2019-02-09] MEDS ORDERED: BUME2TAB5 PO (00:37)
== END 2018-12-21 13:03 | disposition home or self-care (01) | DRG 198 ==
LOC: EDBD 05:18 → ER 05:18 → TELE 12:21 → TELE-CENTR 17:25
PROVIDERS: ADMIT Internal Medicine; ATTEND Internal Medicine
DX: I25.110 Atherosclerotic heart disease of native coronary artery with unstable angina pectoris (principal); I50.43 Acute on chronic combined systolic (congestive) and diastolic (congestive) heart failure; E11.40 Type 2 diabetes mellitus with diabetic neuropathy, unspecified; I42.9 Cardiomyopathy, unspecified; I11.0 Hypertensive heart disease with heart failure; M19.90 Unspecified osteoarthritis, unspecified site; E78.5 Hyperlipidemia, unspecified; Z82.3 Family history of stroke; Z82.49 Family history of ischemic heart disease and other diseases of the circulatory system; Z83.3 Family history of diabetes mellitus; Z86.73 Personal history of transient ischemic attack (TIA), and cerebral infarction without residual deficits; Z87.891 Personal history of nicotine dependence; Z95.810 Presence of automatic (implantable) cardiac defibrillator; Z91.013 Allergy to seafood; Z95.5 Presence of coronary angioplasty implant and graft; Z79.82 Long term (current) use of aspirin; Z79.899 Other long term (current) drug therapy
CPT/HCPCS: 36415; 71045; 80053; 82962; 83880; 84484; 85007; 85025; 85027; 93005; 94761; 96374; G0378; J1815; J2405

== ENCOUNTER 2019-05-31 10:46 | Emergency (ER) | payer MEDICAID ==
[~2019-05-31] VITALS: Ht 182.9 cm; Wt 90.7 kg
[~2019-05-31 10:46] MED LIST changes: -ATOR20TA PO; +BUME1TAB3 PO; -CARV12.544 PO; +CARV25TA55 PO; -FURO1TAB31 PO; -LISI2.5T47 PO; -METF-370 PO; +PRED1PAK10 PO; +SACU1TAB7 PO; -SPIR25TA8 PO
[2019-05-31 11:59] LABS: Basophils # (auto) 0.1 uL; Basophils % (auto) 1.1 % (0.0-2.0); Eosinophils # (auto) 0.2 uL; Eosinophils % (auto) 4.4 % (0.0-7.0); Hematocrit 49.4 % (41.0-53.0); Hemoglobin 16.5 g/dL (13.5-17.5); Lymphocytes % (auto) 19.3 % (10.0-50.0); Mean Corpuscular Hgb Conc. 33.5 g/dL (32.0-36.0); Mean Corpuscular Volume 98.3 fL (80.0-100.0); Monocytes # (auto) 0.5 uL; Monocytes % (auto) 9.5 % (0.0-12.0); Neutrophils # (auto) 3.4 uL; Neutrophils % (auto) 65.7 % (37.0-80.0); Nucleated Red Blood Cells % 0.3 %; Platelet Count (auto) 214 10^3/uL (140-450); Red Blood Cells 5.02 10^6/uL (4.5-5.90); Red Cell Distribution Width 15.7 % (11.8-14.3); White Blood Cell 5.1 10^3/uL (4.4-10.8)
[2019-05-31 12:13] LABS: Albumin 3.9 g/dL (3.4-5.0); Calcium 9.3 mg/dL (8.5-10.1); Potassium 4.4 mmol/L (3.5-5.1)
[2019-05-31 12:16] LABS: BUN/Creatinine Ratio 16.5
[2019-05-31 12:19] LABS: Bilirubin, Total 1.5 mg/dL (0.2-1.0); Total Protein 7.6 g/dL (6.4-8.2)
[2019-05-31] MEDS ORDERED: FUROSEMIDE 40 MG/4 ML VIAL IV ONE (14:00)
[2019-05-31] MEDS ORDERED: SPIRONOLACTONE 25 MG TAB PO ONE (14:00)
[2019-05-31 15:40] VITALS: BP 124/90
== END 2019-05-31 16:35 | disposition home or self-care (01) ==
LOC: EDBD 10:46 → ER 10:53
DX: J81.1 Chronic pulmonary edema (principal); T82.897A Other specified complication of cardiac prosthetic devices, implants and grafts, initial encounter; I11.0 Hypertensive heart disease with heart failure; I50.9 Heart failure, unspecified; I25.10 Atherosclerotic heart disease of native coronary artery without angina pectoris; E78.00 Pure hypercholesterolemia, unspecified; Z87.891 Personal history of nicotine dependence
CPT/HCPCS: 36415; 71046; 80053; 85025; 93005; 96374; 99284; J1940

== ENCOUNTER 2019-10-06 11:28 | Inpatient (IN) | payer MEDICAID, OTHER ==
[~2019-10-06] VITALS: Ht 182.9 cm; Wt 97.4 kg
[~2019-10-06 11:28] MED LIST changes: +DIPH-389 PO; +FAM20T PO; +POTA10TA51 PO; +SPIR25TA8 PO
[2019-10-06] MEDS ORDERED: NITROGLYCERIN 0.4 MG SL TAB SL ONE (11:45)
[2019-10-06] MEDS ORDERED: ONDANSETRON HCL 4 MG/2 ML VIAL IV ONE (12:00)
[2019-10-06] MEDS ORDERED: MORPHINE SULFATE 4 MG/ML SYR/VIAL IV ONE (12:00)
[2019-10-06 12:10] LABS: Basophils # (auto) 0.1 10 ^3/uL (0-0.2); Basophils % (auto) 0.9 % (0.0-2.0); Eosinophils # (auto) 0.1 10 ^3/uL (0-0.8); Hematocrit 46.8 % (41.0-53.0); Hemoglobin 15.6 g/dL (13.5-17.5); Lymphocytes # (auto) 1.1 10 ^3/uL (0.4-5.4); Lymphocytes % (auto) 16.3 % (10.0-50.0); Mean Corpuscular Hemoglobin 32.5 pg (28.0-32.0); Mean Corpuscular Hgb Conc. 33.3 g/dL (32.0-36.0); Mean Corpuscular Volume 97.6 fL (80.0-100.0); Monocytes # (auto) 0.7 10 ^3/uL (0-1.3); Monocytes % (auto) 10.1 % (0.0-12.0); Neutrophils # (auto) 4.7 10 ^3/uL (1.6-8.6); Neutrophils % (auto) 71.7 % (37.0-80.0); Nucleated Red Blood Cells % 0.2 %; Platelet Count (auto) 152 10^3/uL (140-450); Red Cell Distribution Width 15.6 % (11.8-14.3); White Blood Cell 6.6 10^3/uL (4.4-10.8)
[2019-10-06 12:20] LABS: Albumin 3.6 g/dL (3.4-5.0); Anion Gap 7 (5-15); Blood Urea Nitrogen 18 mg/dL (7-18); Calcium 8.7 mg/dL (8.5-10.1); Carbon Dioxide 27 mmol/L (21-32); Chloride 103 mmol/L (98-107); Glucose 117 mg/dL (74-106); Potassium 4.1 mmol/L (3.5-5.1); Sodium 137 mmol/L (136-145)
[2019-10-06 12:27] LABS: Alanine Aminotransferase 21 U/L (16-61); Alkaline Phosphatase 132 U/L (45-117); Aspartate Aminotransferase 20 U/L (15-37); BUN/Creatinine Ratio 17.3; GFR African American 95 mL/min; GFR Non-African American 78 mL/min; Total Protein 6.9 g/dL (6.4-8.2)
[2019-10-06 12:35] LABS: INR 1.42 (0.9-1.15); Partial Thromboplastin Time 29.7 sec (23.64-32.05)
[2019-10-06] MEDS ORDERED: MORPHINE SULF INJ 2 MG/ML SYRINGE 1ML IV PRN ×2 (14:15→14:30)
[2019-10-06] MEDS ORDERED: ONDANSETRON HCL 4 MG/2 ML VIAL IV PRN (14:30)
[2019-10-06] MEDS ORDERED: ATOR20TA50 PO (14:42)
[2019-10-06] MEDS ORDERED: CHOL500021 PO (14:42)
[2019-10-06] MEDS ORDERED: SPIR25TA8 PO (14:42)
[2019-10-06] MEDS ORDERED: SACU1TAB7 PO (14:42)
[2019-10-06] MEDS ORDERED: METF-869 PO (14:42)
[2019-10-06] MEDS ORDERED: CARV25TA PO (14:42)
[2019-10-06] MEDS ORDERED: IVAB1TAB2 PO (14:42)
[2019-10-06] MEDS ORDERED: BUME1TAB26 PO (14:42)
[2019-10-06] MEDS ORDERED: POTA10TA51 PO (14:42)
[2019-10-06] MEDS ORDERED: DEXTROSE (50%) 50ML SYRG IV PRN (15:00)
[2019-10-06] MEDS: ACCU-CHEK COMFORT CURVE STRIP VI SCH ×2 (16:32→22:40)
[2019-10-06] MEDS: InsuLIN REG 1unit/0.01ml Soln (100units/ml) SC SCH ×2 (16:32→22:00)
[2019-10-06 17:00] VITALS: BP 112/75
[2019-10-06 17:08] VITALS: BP 112/75
[2019-10-06] MEDS: metFORMIN HYDROCHLORIDE 500 MG TAB PO SCH (18:44)
[2019-10-06] MEDS: CARVEDILOL 12.5 MG TAB PO SCH (18:46)
[2019-10-06] MEDS: NITROGLYCERIN 0.4 MG SL TAB SL PRN ×2 (19:14→19:23)
--- NOTE | 2019-10-06 19:31 | NUR ---
Opening Shift Note Received report and assumed care of patient. Patient is awake and alert. No signs or symptoms of distress noted. Instructed patient on plan of care and to call for assistance as needed. Will continue to monitor.
[2019-10-06] MEDS ORDERED: ALBUTEROL SULF 2.5 MG/0.5ML(0.5%) NEB SOLN NEB PRN (20:30)
[2019-10-06 21:00] VITALS: BP 96/59
[2019-10-06] MEDS: [UNRECOGNIZED DRUG - OTHER] PO SCH (22:00)
[2019-10-06] MEDS: [UNRECOGNIZED DRUG - OTHER] PO SCH (22:00)
[2019-10-06] MEDS: VALSARTAN PO SCH (22:00)
[2019-10-06] MEDS ORDERED: ZOLPIDEM TARTRATE 5 MG TAB PO ONE (22:00)
[2019-10-06] MEDS: IVABRADINE PO SCH (22:00)
[2019-10-06] MEDS: SACUBITRIL PO SCH (22:00)
[2019-10-06] MEDS: SPIRONOLACTONE 25 MG TAB PO SCH (22:40)
[2019-10-06] MEDS: ATORVASTATIN 20 MG TAB PO SCH (22:40)
[2019-10-07 01:52] VITALS: BP 96/59
[2019-10-07 05:00] VITALS: BP 113/78
[2019-10-07 05:53] LABS: Basophils # (auto) 0 10 ^3/uL (0-0.2); Basophils % (auto) 0.6 % (0.0-2.0); Eosinophils # (auto) 0.1 10 ^3/uL (0-0.8); Eosinophils % (auto) 1.7 % (0.0-7.0); Hematocrit 42.5 % (41.0-53.0); Hemoglobin 14.5 g/dL (13.5-17.5); Lymphocytes # (auto) 0.9 10 ^3/uL (0.4-5.4); Lymphocytes % (auto) 13.8 % (10.0-50.0); Mean Corpuscular Hgb Conc. 34.1 g/dL (32.0-36.0); Mean Corpuscular Volume 96.9 fL (80.0-100.0); Monocytes # (auto) 0.7 10 ^3/uL (0-1.3); Monocytes % (auto) 10.5 % (0.0-12.0); Neutrophils # (auto) 4.8 10 ^3/uL (1.6-8.6); Neutrophils % (auto) 73.4 % (37.0-80.0); Nucleated Red Blood Cells % 0.3 %; Platelet Count (auto) 144 10^3/uL (140-450); Red Blood Cells 4.39 10^6/uL (4.5-5.90); White Blood Cell 6.5 10^3/uL (4.4-10.8)
[2019-10-07 06:14] LABS: Albumin 3.3 g/dL (3.4-5.0); Calcium 8.6 mg/dL (8.5-10.1); Potassium 4.5 mmol/L (3.5-5.1)
[2019-10-07 06:28] LABS: Bilirubin, Total 1.4 mg/dL (0.2-1.0); Total Protein 6.6 g/dL (6.4-8.2)
[2019-10-07] MEDS: ACCU-CHEK COMFORT CURVE STRIP VI SCH ×4 (07:00→22:16)
[2019-10-07] MEDS: InsuLIN REG 1unit/0.01ml Soln (100units/ml) SC SCH ×4 (07:00→22:00)
[2019-10-07 07:18] LABS: BUN/Creatinine Ratio 21.8
[2019-10-07] MEDS: CARVEDILOL 12.5 MG TAB PO SCH ×2 (08:00→18:00)
[2019-10-07] MEDS: metFORMIN HYDROCHLORIDE 500 MG TAB PO SCH ×2 (08:00→18:00)
[2019-10-07] MEDS ORDERED: diphenhdrAMINE HCL 50 MG/1 ML VL IV ONE (08:30)
[2019-10-07 09:00] VITALS: BP 105/72
--- NOTE | 2019-10-07 09:37 | NUR ---
RT NOTE: NO TX INDICATED AT THIS TIME. NO SIGNS OF RESPIRATORY DISTRESS. LUNG SOUNDS CLEAR T/O. ON RA SPO2 96 HR 55 RR 18. PT AWARE TO PAGE FOR RESPIRATORY IF NEED FOR TX ARISES. WILL CONTINUE TO MONITOR.
[2019-10-07] MEDS: IVABRADINE PO SCH ×2 (10:00→22:00)
[2019-10-07] MEDS: CHOLECALCIFEROL (VITD3) 1,000IU=25mCg TAB PO SCH (10:00)
[2019-10-07] MEDS: SPIRONOLACTONE 25 MG TAB PO SCH ×3 (10:00→17:10)
[2019-10-07] MEDS: VALSARTAN PO SCH ×2 (10:00→22:00)
[2019-10-07] MEDS: [UNRECOGNIZED DRUG - OTHER] PO SCH ×2 (10:00→22:00)
[2019-10-07] MEDS: SACUBITRIL PO SCH ×2 (10:00→22:00)
[2019-10-07] MEDS: POTASSIUM CHL 10 Meq TABLET PO SCH (10:00)
[2019-10-07] MEDS ORDERED: IVABRADINE 7.5 MG PO SCH (10:00)
[2019-10-07] MEDS: [UNRECOGNIZED DRUG - OTHER] PO SCH ×2 (10:00→22:00)
[2019-10-07] MEDS ORDERED: PATIENTS OWN MEDICATION (Carvedilol (Coreg) 1 TAB) PO SCH (10:00)
[2019-10-07] MEDS ORDERED: PATIENTS OWN MEDICATION (Sacubitril-Valsartan (Entresto 49-51 mg) 1 TAB) PO SCH (10:00)
[2019-10-07] MEDS: BUMETANIDE 2.5mg/10ml (0.25 mg/ml) INJ IV SCH ×2 (10:00→17:09)
--- NOTE | 2019-10-07 12:00 | NUR ---
PATIENT COMPLAINS OF CHEST PAIN IN PATIENT ROOM, PATIENT HAD CO CHEST PAIN 0/10, PAIN LEVEL OF AN 8. TOOK PATIENTS BLOOD PRESSURE WAS NOTED AT 1207 94/69. OFFERED PATIENT NIRTOSTAT FOR CHEST PAIN, PATIENT REFUSED AND MORPHINE WAS ALSO REFUSED. CONCERNS OF BLOOD PRESSURE DECREASING. PLACED OXYGEN ON PATIENT, SAT PATIENT UP IN BED HIGH HOWE, ELEVATED THE FOOT OF THE BED, BLOOD PRESSURE WAS 89/65 AT 1210. PROCEEDED WITH EKG WITH ASSISTANCE BY UNIT RN. TELE MONITOR HEART RATE 0F [address] ELEV[address]. PATIENT HAS PACEMAKER AND WAS PACED. PATIENT HAD C/O IF CHEST PAIN OF 0/10 SCALE, 6. CHEST PAIN DECREASED. CARPENTER SUPERVISOR WOODEN SHIP DR. PADILLA WAS PAGED AT 1230 BY MINI HUANG. MINI SALINAS ASSISTED IN ROOM WITH CARE. BLOOD PRESSURE WAS TAKEN AT 1230, 98/73.REHABILITATION COUNSELOR WAS NOTIFIED AND IN ROOM. PATIENT CHEST PAIN WAS AT 3 ON A 0/10 SCALE. PATIENT STATED NEEDING TO USE THE BATHROOM FOR BOWEL MOVEMENT. BEFORE AMBULATION ALLOWED THE PATIENT TO SIT AT THE EDGE OF THE BED FOR SEVERAL MINUTES WITHOUT COMPLAINTS OF DIZZINESS AND OR SOB. PATIENT KELLEN TO STANDING WITH MINIMAL OF DIZZINESS, NAUSEA. PATIENT WAS ABLE TO AMBULATE TO RESTROOM WITH MINIMAL ASSIST. NO FALLS NOTED. ON RETURN TO ORTHOSTATIC BLOOD PRESSURES WAS PERFORMED AT 1246 STANDING 104/50HR 67, SITTING 93/57 HR 61, SUPINE 86/67 HR 65. REVIEWED MEDICATIONS AND PLAN OF CARE WITH DR NG, HOLD MEDICATIONS THAT ALTER HR AND BLOOD PRESSURES, ADD NEW ORDER OF ACETAMINOPHEN FOR BREAK THROUGH PAIN. WILL CONTINUE TO MONITOR.
--- NOTE | 2019-10-07 12:26 | NUR ---
RESPOND TO ASSIST ASSIGNED RN WITH 12 LEAD EKG. VIEWED TELE MONITOR AT BEDSIDE AV PACED ESTRADA NOTED. ST ELEVATION NOTED. SBP 88 SYMPTOMATIC PALE MOIST SKIN. PAGED DR. NELSON THROUGH HIS ANSWERING SERVICE FOR ATTENDING RN. COOK FRY RJ MADE AWARE.
[2019-10-07 13:00] VITALS: BP 93/57
[2019-10-07 17:00] VITALS: BP 103/69
[2019-10-07] MEDS: ATORVASTATIN 20 MG TAB PO SCH (17:09)
--- NOTE | 2019-10-07 19:34 | NUR ---
Opening Shift Note Received report and assumed care of patient. Patient is awake and alert. No signs or symptoms of distress noted, patient currently denies pain. Instructed patient on plan of care and to call for assistance as needed. Will continue to monitor.
--- NOTE | 2019-10-07 19:58 | NUR ---
IV removal Patient accidentally removed 18g IV to the Left forearm. Pressure dressing applied to site. NOTE: Patient has 20g IV to the Right forearm.
[2019-10-07 22:00] VITALS: BP 100/72
[2019-10-08 05:00] VITALS: BP 114/71
[2019-10-08] MEDS: ACCU-CHEK COMFORT CURVE STRIP VI SCH (06:19)
[2019-10-08] MEDS: InsuLIN REG 1unit/0.01ml Soln (100units/ml) SC SCH (06:19)
[2019-10-08 06:49] LABS: Basophils # (auto) 0 10 ^3/uL (0-0.2); Basophils % (auto) 0.4 % (0.0-2.0); Eosinophils # (auto) 0.1 10 ^3/uL (0-0.8); Eosinophils % (auto) 2.4 % (0.0-7.0); Hematocrit 40.3 % (41.0-53.0); Hemoglobin 13.9 g/dL (13.5-17.5); Lymphocytes # (auto) 0.9 10 ^3/uL (0.4-5.4); Lymphocytes % (auto) 15.9 % (10.0-50.0); Mean Corpuscular Hemoglobin 33.3 pg (28.0-32.0); Mean Corpuscular Hgb Conc. 34.4 g/dL (32.0-36.0); Mean Corpuscular Volume 96.9 fL (80.0-100.0); Monocytes # (auto) 0.6 10 ^3/uL (0-1.3); Monocytes % (auto) 10.4 % (0.0-12.0); Neutrophils # (auto) 4.1 10 ^3/uL (1.6-8.6); Neutrophils % (auto) 70.9 % (37.0-80.0); Nucleated Red Blood Cells % 0.1 %; Platelet Count (auto) 144 10^3/uL (140-450); Red Blood Cells 4.16 10^6/uL (4.5-5.90); White Blood Cell 5.7 10^3/uL (4.4-10.8)
[2019-10-08 07:06] LABS: Albumin 3.3 g/dL (3.4-5.0); Calcium 8.9 mg/dL (8.5-10.1); Potassium 3.6 mmol/L (3.5-5.1)
[2019-10-08 07:08] LABS: BUN/Creatinine Ratio 19.4
[2019-10-08 07:11] LABS: Bilirubin, Total 1.4 mg/dL (0.2-1.0); Total Protein 6.4 g/dL (6.4-8.2)
[2019-10-08] MEDS: metFORMIN HYDROCHLORIDE 500 MG TAB PO SCH (08:20)
[2019-10-08] MEDS: [UNRECOGNIZED DRUG - OTHER] PO SCH (08:28)
[2019-10-08] MEDS: IVABRADINE PO SCH (08:28)
[2019-10-08] MEDS: [UNRECOGNIZED DRUG - OTHER] PO SCH (08:29)
[2019-10-08] MEDS: VALSARTAN PO SCH (08:29)
[2019-10-08] MEDS: SACUBITRIL PO SCH (08:29)
[2019-10-08 09:00] VITALS: BP 106/71
[2019-10-08] MEDS: CARVEDILOL 12.5 MG TAB PO SCH (10:24)
[2019-10-08] MEDS: CHOLECALCIFEROL (VITD3) 1,000IU=25mCg TAB PO SCH (10:29)
[2019-10-08] MEDS: POTASSIUM CHL 10 Meq TABLET PO SCH (10:29)
[2019-10-08] MEDS ORDERED: SPIRONOLACTONE 25 MG TAB PO SCH (10:34)
[2019-10-08] MEDS ORDERED: BUMETANIDE 2.5mg/10ml (0.25 mg/ml) INJ IV SCH (10:34)
--- NOTE | 2019-10-08 12:58 | NUR ---
RT NOTE: PRN TX. NOT INDICATED AT THIS TIME. PT. SLEEPING. NO S/S OF RESPIRATORY DISTRESS NOTED. WILL CONTINUE TO MONITOR.
[2019-10-08 13:00] VITALS: BP 103/52
[2019-10-08 13:24] VITALS: BP 106/71
== END 2019-10-08 14:50 | disposition home or self-care (01) | DRG 194 ==
LOC: ER 11:28 → EDBD 11:28 → MERGE 11:29 → TELE 11:29 → TELE-EAST 17:00
PROVIDERS: ADMIT Internal Medicine; ATTEND Internal Medicine
DX: I50.43 Acute on chronic combined systolic (congestive) and diastolic (congestive) heart failure (principal); E11.22 Type 2 diabetes mellitus with diabetic chronic kidney disease; E11.40 Type 2 diabetes mellitus with diabetic neuropathy, unspecified; I25.5 Ischemic cardiomyopathy; N18.9 Chronic kidney disease, unspecified; Z95.810 Presence of automatic (implantable) cardiac defibrillator; Z95.5 Presence of coronary angioplasty implant and graft; Z79.84 Long term (current) use of oral hypoglycemic drugs
CPT/HCPCS: 36415; 71045; 80053; 82962; 83880; 84484; 85025; 85379; 85610; 85730; 87081; 93005; 94640; 96374; 96375; G0378; J2405

== ENCOUNTER 2019-12-16 17:33 | Inpatient (IN) | payer MEDICAID ==
[~2019-12-16] VITALS: Ht 182.9 cm; Wt 93.8 kg
[~2019-12-16 17:33] MED LIST changes: +ATOR20TA50 PO; +BUME1TAB26 PO; +CARV25TA PO; +CHOL500021 PO; -FAM20T PO; +FAMO20TA10 PO; +IVAB1TAB2 PO; +METF-869 PO
[2019-12-16] MEDS ORDERED: ONDANSETRON HCL 4 MG/2 ML VIAL IV ONE (17:45)
[2019-12-16] MEDS ORDERED: MORPHINE SULFATE 4 MG/ML SYR/VIAL IV ONE (17:45)
[2019-12-16 18:36] LABS: Basophils # (auto) 0 10 ^3/uL (0-0.2); Basophils % (auto) 0.2 % (0.0-2.0); Eosinophils # (auto) 0.1 10 ^3/uL (0-0.8); Eosinophils % (auto) 2.1 % (0.0-7.0); Hematocrit 45.6 % (41.0-53.0); Hemoglobin 15.3 g/dL (13.5-17.5); Lymphocytes # (auto) 1.2 10 ^3/uL (0.4-5.4); Lymphocytes % (auto) 22.6 % (10.0-50.0); Mean Corpuscular Hemoglobin 32.6 pg (28.0-32.0); Mean Corpuscular Hgb Conc. 33.6 g/dL (32.0-36.0); Monocytes # (auto) 0.6 10 ^3/uL (0-1.3); Monocytes % (auto) 10.4 % (0.0-12.0); Neutrophils # (auto) 3.5 10 ^3/uL (1.6-8.6); Neutrophils % (auto) 64.7 % (37.0-80.0); Nucleated Red Blood Cells % 0.4 %; Platelet Count (auto) 191 10^3/uL (140-450); Red Cell Distribution Width 15.6 % (11.8-14.3); White Blood Cell 5.5 10^3/uL (4.4-10.8)
[2019-12-16 18:51] LABS: Albumin 3.4 g/dL (3.4-5.0); Anion Gap 6 (5-15); Blood Urea Nitrogen 18 mg/dL (7-18); Carbon Dioxide 25 mmol/L (21-32); Chloride 106 mmol/L (98-107); Glucose 107 mg/dL (74-106); Magnesium 2.1 mg/dL (1.6-2.6); Sodium 137 mmol/L (136-145)
[2019-12-16 18:58] LABS: Alanine Aminotransferase 24 U/L (16-61); Alkaline Phosphatase 155 U/L (45-117); Aspartate Aminotransferase 20 U/L (15-37); BUN/Creatinine Ratio 17.8; Bilirubin, Total 1.5 mg/dL (0.2-1.0); GFR African American 98 mL/min; GFR Non-African American 81 mL/min; Total Protein 6.7 g/dL (6.4-8.2)
[2019-12-16 18:58] LABS: Alcohol, Urine < 3.0 mg/dL (0-10); Amphetamine Screen, Urine NEGATIVE (NEGATIVE); Barbiturate Scree,Urine NEGATIVE (NEGATIVE); Benzodiazephine Screen, Urine NEGATIVE (NEGATIVE); Cannabinoid Screen, Urine NEGATIVE (NEGATIVE); Cocaine Screen, Urine NEGATIVE (NEGATIVE); Opiate Scree,Urine NEGATIVE (NEGATIVE); Phencyclidine Screen, Urine NEGATIVE (NEGATIVE)
[2019-12-16] MEDS ORDERED: FUROSEMIDE 40 MG/4 ML VIAL IV ONE (19:45)
[2019-12-16] MEDS ORDERED: ONDANSETRON HCL 4 MG/2 ML VIAL IV PRN (21:45)
[2019-12-16] MEDS ORDERED: MORPHINE SULF INJ 2 MG/ML SYRINGE 1ML IV PRN ×2 (21:45)
[2019-12-16] MEDS ORDERED: NITROGLYCERIN 0.4 MG SL TAB SL PRN (21:45)
[2019-12-16] MEDS ORDERED: BUMETANIDE 2.5mg/10ml (0.25 mg/ml) INJ IV SCH (22:00)
[2019-12-16] MEDS ORDERED: diphenhdrAMINE HCL 25 MG CAP PO PRN (22:30)
[2019-12-16 23:50] VITALS: BP 106/57
[2019-12-17 05:00] VITALS: BP 108/71
[2019-12-17] MEDS: SPIRONOLACTONE 25 MG TAB PO SCH ×2 (06:11→19:54)
[2019-12-17] MEDS: BUMETANIDE 1 MG TAB PO SCH ×2 (06:11→19:55)
[2019-12-17 06:26] LABS: Basophils # (auto) 0.1 10 ^3/uL (0-0.2); Basophils % (auto) 1.2 % (0.0-2.0); Eosinophils # (auto) 0.1 10 ^3/uL (0-0.8); Eosinophils % (auto) 1.5 % (0.0-7.0); Hematocrit 45.5 % (41.0-53.0); Hemoglobin 15.3 g/dL (13.5-17.5); Lymphocytes # (auto) 1.2 10 ^3/uL (0.4-5.4); Lymphocytes % (auto) 20.3 % (10.0-50.0); Mean Corpuscular Hemoglobin 32.9 pg (28.0-32.0); Mean Corpuscular Hgb Conc. 33.7 g/dL (32.0-36.0); Mean Corpuscular Volume 97.5 fL (80.0-100.0); Monocytes # (auto) 0.6 10 ^3/uL (0-1.3); Monocytes % (auto) 10.9 % (0.0-12.0); Neutrophils # (auto) 3.8 10 ^3/uL (1.6-8.6); Neutrophils % (auto) 66.1 % (37.0-80.0); Nucleated Red Blood Cells % 0.3 %; Platelet Count (auto) 181 10^3/uL (140-450); Red Blood Cells 4.67 10^6/uL (4.5-5.90); White Blood Cell 5.7 10^3/uL (4.4-10.8)
[2019-12-17 06:49] LABS: Albumin 3.6 g/dL (3.4-5.0); Calcium 8.2 mg/dL (8.5-10.1); Potassium 3.8 mmol/L (3.5-5.1)
[2019-12-17 06:53] LABS: BUN/Creatinine Ratio 15.6; Bilirubin, Total 1.8 mg/dL (0.2-1.0)
[2019-12-17 08:00] VITALS: BP 135/66
[2019-12-17 08:23] VITALS: BP 108/74
[2019-12-17] MEDS: predniSONE 20 MG TAB PO SCH (08:37)
[2019-12-17] MEDS: FAMOTIDINE 20 MG TAB PO SCH (08:37)
[2019-12-17] MEDS: CARVEDILOL 12.5 MG TAB PO SCH ×2 (08:37→21:47)
[2019-12-17] MEDS: metFORMIN HYDROCHLORIDE 500 MG TAB PO SCH ×2 (08:37→19:55)
[2019-12-17] MEDS: SACUBITRIL-VALSARTAN 24mg/26mg TAB PO SCH ×2 (08:37→21:47)
[2019-12-17] MEDS: ASPirin 81 mg TAB PO SCH (08:37)
[2019-12-17] MEDS: POTASSIUM CHL 10 Meq TABLET PO SCH (08:38)
[2019-12-17] MEDS: CHOLECALCIFEROL (VITD3) 1,000UNIT=25mCg TAB PO SCH (08:38)
[2019-12-17] MEDS: CORLANOR 7.5 MG PO SCH ×2 (10:00→21:48)
[2019-12-17 12:30] VITALS: BP 96/63
[2019-12-17] MEDS ORDERED: metOLazone 5 MG TAB PO ONE (13:45)
[2019-12-17] MEDS ORDERED: ACETAMINOPHEN 325 MG TAB PO PRN (16:15)
[2019-12-17 17:00] VITALS: BP 102/65
[2019-12-17] MEDS ORDERED: SACU1TAB4 PO (17:42)
[2019-12-17 22:00] VITALS: BP 102/69
[2019-12-17] MEDS ORDERED: ATORVASTATIN 20 MG TAB PO SCH (22:00)
[2019-12-18 05:04] VITALS: BP 107/71
[2019-12-18] MEDS: SPIRONOLACTONE 25 MG TAB PO SCH (05:34)
[2019-12-18] MEDS: BUMETANIDE 1 MG TAB PO SCH (05:36)
[2019-12-18] MEDS: metFORMIN HYDROCHLORIDE 500 MG TAB PO SCH (08:31)
[2019-12-18 09:00] VITALS: BP 109/71
[2019-12-18] MEDS: ASPirin 81 mg TAB PO SCH (09:45)
[2019-12-18] MEDS: CHOLECALCIFEROL (VITD3) 1,000UNIT=25mCg TAB PO SCH (09:45)
[2019-12-18] MEDS: CORLANOR 7.5 MG PO SCH (09:45)
[2019-12-18] MEDS: predniSONE 20 MG TAB PO SCH (09:46)
[2019-12-18] MEDS: CARVEDILOL 12.5 MG TAB PO SCH (09:46)
[2019-12-18] MEDS: SACUBITRIL-VALSARTAN 24mg/26mg TAB PO SCH (09:46)
[2019-12-18] MEDS: POTASSIUM CHL 10 Meq TABLET PO SCH (09:47)
[2019-12-18] MEDS: FAMOTIDINE 20 MG TAB PO SCH (09:47)
[2019-12-18] MEDS ORDERED: metOLazone 5 MG TAB PO ONE (12:00)
[2019-12-18 13:00] VITALS: BP 104/73
[2019-12-18 17:00] VITALS: BP 103/64
== END 2019-12-18 17:05 | disposition home or self-care (01) | DRG 194 ==
LOC: EDBD 17:33 → ER 17:33 → TELE 17:34 → TELE-CENTR 22:40
PROVIDERS: ADMIT Internal Medicine; ATTEND Internal Medicine
DX: I11.0 Hypertensive heart disease with heart failure (principal); I95.9 Hypotension, unspecified; I24.9 Acute ischemic heart disease, unspecified; I42.8 Other cardiomyopathies; I25.10 Atherosclerotic heart disease of native coronary artery without angina pectoris; I50.43 Acute on chronic combined systolic (congestive) and diastolic (congestive) heart failure; E78.5 Hyperlipidemia, unspecified; Z82.3 Family history of stroke; Z82.49 Family history of ischemic heart disease and other diseases of the circulatory system; Z87.891 Personal history of nicotine dependence; Z95.810 Presence of automatic (implantable) cardiac defibrillator; Z83.3 Family history of diabetes mellitus; Z91.013 Allergy to seafood
CPT/HCPCS: 36415; 71045; 80053; 80307; 83735; 83880; 84484; 85025; 93005; 96374; 96375; 96376; G0378; J2405

== ENCOUNTER 2019-12-20 12:49 | Inpatient (IN) | payer MEDICAID ==
[~2019-12-20] VITALS: Ht 182.9 cm; Wt 91.0 kg
[~2019-12-20 12:49] MED LIST changes: -BUME1TAB3 PO; -CARV25TA55 PO; -DIPH-389 PO; -FAMO20TA10 PO; -PRED1PAK10 PO; +SACU1TAB4 PO; -SACU1TAB7 PO
[2019-12-20] MEDS ORDERED: SODIUM CHLORIDE 0.9% 500 ML IV ONE (13:30)
[2019-12-20 13:40] LABS: Basophils # (auto) 0 10 ^3/uL (0-0.2); Basophils % (auto) 0.5 % (0.0-2.0); Eosinophils # (auto) 0.1 10 ^3/uL (0-0.8); Eosinophils % (auto) 0.7 % (0.0-7.0); Hematocrit 52.3 % (41.0-53.0); Hemoglobin 17.6 g/dL (13.5-17.5); Lymphocytes # (auto) 0.9 10 ^3/uL (0.4-5.4); Lymphocytes % (auto) 10.9 % (10.0-50.0); Mean Corpuscular Hemoglobin 32.9 pg (28.0-32.0); Mean Corpuscular Hgb Conc. 33.6 g/dL (32.0-36.0); Mean Corpuscular Volume 98.1 fL (80.0-100.0); Monocytes % (auto) 11.7 % (0.0-12.0); Neutrophils # (auto) 6.6 10 ^3/uL (1.6-8.6); Neutrophils % (auto) 76.2 % (37.0-80.0); Nucleated Red Blood Cells % 0.2 %; Platelet Count (auto) 250 10^3/uL (140-450); Red Blood Cells 5.33 10^6/uL (4.5-5.90); Red Cell Distribution Width 15.9 % (11.8-14.3); White Blood Cell 8.7 10^3/uL (4.4-10.8)
[2019-12-20] MEDS ORDERED: SODIUM CHLORIDE 0.9% 1,000 ML IV ONE (13:51)
[2019-12-20 13:58] LABS: Albumin 3.2 g/dL (3.4-5.0); Anion Gap 9 (5-15); Blood Urea Nitrogen 63 mg/dL (7-18); Calcium 8.2 mg/dL (8.5-10.1); Carbon Dioxide 29 mmol/L (21-32); Chloride 92 mmol/L (98-107); Glucose 136 mg/dL (74-106); Potassium 4.3 mmol/L (3.5-5.1); Sodium 130 mmol/L (136-145)
[2019-12-20] MEDS ORDERED: ONDANSETRON HCL 4 MG/2 ML VIAL IV ONE (14:00)
[2019-12-20 14:02] LABS: Alanine Aminotransferase 23 U/L (16-61); Alkaline Phosphatase 174 U/L (45-117); Aspartate Aminotransferase 14 U/L (15-37); BUN/Creatinine Ratio 22.3; Bilirubin, Total 0.8 mg/dL (0.2-1.0); GFR African American 30 mL/min; GFR Non-African American 25 mL/min; Total Protein 6.9 g/dL (6.4-8.2)
[2019-12-20 14:26] LABS: INR 1.32 (0.9-1.15); Partial Thromboplastin Time 30.2 sec (23.64-32.05)
[2019-12-20 15:42] LABS: Urine Bacteria NONE SEEN /hpf (None Seen); Urine Blood Negative /uL (Negative); Urine Hyaline Cast MANY /lpf (0 - 2); Urine Mucus FEW (None Seen); Urine Specific Gravity 1.011 (1.001-1.035); Urine WBC 1 /hpf (0 - 3)
[2019-12-20] MEDS ORDERED: METOPROLOL TARTRATE 1MG/1ML-5ML VIAL IV ONE (16:15)
[2019-12-20] MEDS ORDERED: NITROGLYCERIN 0.4 MG SL TAB SL SCH (16:45)
[2019-12-20] MEDS ORDERED: MORPHINE SULF INJ 2 MG/ML SYRINGE 1ML IV PRN (16:45)
[2019-12-20] MEDS ORDERED: NITROGLYCERIN 0.4 MG SL TAB SL PRN (16:45)
[2019-12-20] MEDS ORDERED: ACETAMINOPHEN 500 MG TAB PO PRN (17:00)
[2019-12-20] MEDS ORDERED: METOPROLOL TARTRATE 1MG/1ML-5ML VIAL IV PRN (17:00)
[2019-12-20] MEDS ORDERED: ONDANSETRON HCL 4 MG/2 ML VIAL IV PRN (17:00)
[2019-12-20] MEDS ORDERED: ACETAMINOPHEN 500 MG TAB PO ONE (17:00)
[2019-12-20] MEDS: SPIRONOLACTONE 25 MG TAB PO SCH (18:00)
[2019-12-20] MEDS: BUMETANIDE 2.5mg/10ml (0.25 mg/ml) INJ IV SCH (18:00)
[2019-12-20] MEDS ORDERED: NOREPINEPHRINE 8 MG/250ML KIT 250 ML IV ONE (20:26)
[2019-12-20] MEDS: NOREPINEPHRINE 8 MG/250ML KIT 250 ML IV SCH (20:35)
[2019-12-20] MEDS: ATORVASTATIN 20 MG TAB PO SCH (22:00)
[2019-12-20] MEDS: CARVEDILOL 12.5 MG TAB PO SCH (22:00)
[2019-12-21] MEDS: SPIRONOLACTONE 25 MG TAB PO SCH (06:00)
[2019-12-21] MEDS: BUMETANIDE 2.5mg/10ml (0.25 mg/ml) INJ IV SCH (06:17)
[2019-12-21 06:38] LABS: Basophils # (auto) 0.1 10 ^3/uL (0-0.2); Basophils % (auto) 0.6 % (0.0-2.0); Eosinophils # (auto) 0.2 10 ^3/uL (0-0.8); Eosinophils % (auto) 1.8 % (0.0-7.0); Hematocrit 55.3 % (41.0-53.0); Hemoglobin 19.1 g/dL (13.5-17.5); Lymphocytes # (auto) 1.2 10 ^3/uL (0.4-5.4); Mean Corpuscular Hemoglobin 33.3 pg (28.0-32.0); Mean Corpuscular Hgb Conc. 34.5 g/dL (32.0-36.0); Mean Corpuscular Volume 96.3 fL (80.0-100.0); Monocytes # (auto) 1.2 10 ^3/uL (0-1.3); Monocytes % (auto) 13.8 % (0.0-12.0); Neutrophils % (auto) 69.8 % (37.0-80.0); Nucleated Red Blood Cells % 0.2 %; Platelet Count (auto) 250 10^3/uL (140-450); Red Blood Cells 5.74 10^6/uL (4.5-5.90); Red Cell Distribution Width 16.1 % (11.8-14.3); White Blood Cell 8.6 10^3/uL (4.4-10.8)
[2019-12-21 06:48] LABS: Albumin 3.7 g/dL (3.4-5.0); Calcium 8.7 mg/dL (8.5-10.1); Potassium 4.7 mmol/L (3.5-5.1)
[2019-12-21 06:53] LABS: BUN/Creatinine Ratio 28.9; Bilirubin, Total 1.3 mg/dL (0.2-1.0); Total Protein 7.4 g/dL (6.4-8.2)
[2019-12-21] MEDS: CARVEDILOL 12.5 MG TAB PO SCH (10:00)
[2019-12-21] MEDS: CHOLECALCIFEROL (VITD3) 1,000IU=25mCg TAB PO SCH (10:27)
[2019-12-21] MEDS: POTASSIUM CHL 20 Meq TABLET PO SCH (10:28)
[2019-12-21] MEDS: ASPirin 81 mg TAB PO SCH (10:28)
[2019-12-21] MEDS: NOREPINEPHRINE 8 MG/250ML KIT 250 ML IV SCH (12:30)
[2019-12-21] MEDS: MORPHINE SULF INJ 2 MG/ML SYRINGE 1ML IV PRN (16:33)
[2019-12-21] MEDS: ATORVASTATIN 20 MG TAB PO SCH (21:46)
[2019-12-22] VITALS (44 sets, daily range): BP systolic 82–120; BP diastolic 32–82
[2019-12-22] MEDS ORDERED: AMIODARONE HCL 150 MG in D5W 5% 100 ML IV ONE (01:45)
[2019-12-22] MEDS ORDERED: AMIODARONE 450mg/250ml AE 250 ML IV SCH ×2 (01:52→07:52)
[2019-12-22 06:50] LABS: Basophils # (auto) 0.1 10 ^3/uL (0-0.2); Basophils % (auto) 1.3 % (0.0-2.0); Eosinophils # (auto) 0.2 10 ^3/uL (0-0.8); Eosinophils % (auto) 2.8 % (0.0-7.0); Hematocrit 54.6 % (41.0-53.0); Hemoglobin 18.3 g/dL (13.5-17.5); Lymphocytes # (auto) 1.3 10 ^3/uL (0.4-5.4); Lymphocytes % (auto) 18.8 % (10.0-50.0); Mean Corpuscular Hemoglobin 32.7 pg (28.0-32.0); Mean Corpuscular Hgb Conc. 33.6 g/dL (32.0-36.0); Mean Corpuscular Volume 97.4 fL (80.0-100.0); Monocytes # (auto) 0.9 10 ^3/uL (0-1.3); Monocytes % (auto) 12.6 % (0.0-12.0); Neutrophils # (auto) 4.5 10 ^3/uL (1.6-8.6); Neutrophils % (auto) 64.5 % (37.0-80.0); Nucleated Red Blood Cells % 0.1 %; Platelet Count (auto) 238 10^3/uL (140-450); Red Cell Distribution Width 15.9 % (11.8-14.3)
[2019-12-22 07:12] LABS: Albumin 3.5 g/dL (3.4-5.0); Calcium 9.1 mg/dL (8.5-10.1); Potassium 4.3 mmol/L (3.5-5.1)
[2019-12-22 07:17] LABS: BUN/Creatinine Ratio 27.7; Bilirubin, Total 1.3 mg/dL (0.2-1.0); Total Protein 7.3 g/dL (6.4-8.2)
[2019-12-22] MEDS: POTASSIUM CHL 20 Meq TABLET PO SCH (10:15)
[2019-12-22] MEDS: CHOLECALCIFEROL (VITD3) 1,000IU=25mCg TAB PO SCH (10:16)
[2019-12-22] MEDS: ASPirin 81 mg TAB PO SCH (10:16)
[2019-12-22] MEDS: MORPHINE SULF INJ 2 MG/ML SYRINGE 1ML IV PRN ×3 (10:17→20:59)
[2019-12-22] MEDS: ATORVASTATIN 20 MG TAB PO SCH (21:48)
[2019-12-23] MEDS: MORPHINE SULF INJ 2 MG/ML SYRINGE 1ML IV PRN ×4 (01:29→21:59)
[2019-12-23 05:00] VITALS: BP 113/70
[2019-12-23 07:02] LABS: Basophils # (auto) 0 10 ^3/uL (0-0.2); Eosinophils # (auto) 0.2 10 ^3/uL (0-0.8); Lymphocytes # (auto) 1.3 10 ^3/uL (0.4-5.4); Monocytes # (auto) 0.8 10 ^3/uL (0-1.3); Platelet Count (auto) 210 10^3/uL (140-450)
[2019-12-23 07:07] LABS: Basophils % (auto) 0.7 % (0.0-2.0); Hematocrit 53.1 % (41.0-53.0); Lymphocytes % (auto) 21.7 % (10.0-50.0); Mean Corpuscular Hemoglobin 32.9 pg (28.0-32.0); Mean Corpuscular Hgb Conc. 33.9 g/dL (32.0-36.0); Mean Corpuscular Volume 97.1 fL (80.0-100.0); Monocytes % (auto) 13.7 % (0.0-12.0); Neutrophils # (auto) 3.7 10 ^3/uL (1.6-8.6); Neutrophils % (auto) 60.9 % (37.0-80.0); Nucleated Red Blood Cells % 0.1 %; Red Blood Cells 5.48 10^6/uL (4.5-5.90); Red Cell Distribution Width 16.1 % (11.8-14.3)
[2019-12-23 07:27] LABS: Albumin 3.7 g/dL (3.4-5.0); Magnesium 2.1 mg/dL (1.6-2.6); Potassium 4.4 mmol/L (3.5-5.1)
[2019-12-23 07:30] LABS: BUN/Creatinine Ratio 27.3; Bilirubin, Total 1.7 mg/dL (0.2-1.0); Total Protein 7.4 g/dL (6.4-8.2)
[2019-12-23 09:00] VITALS: BP 114/72
[2019-12-23] MEDS: ASPirin 81 mg TAB PO SCH (09:00)
[2019-12-23] MEDS: POTASSIUM CHL 20 Meq TABLET PO SCH (09:00)
[2019-12-23] MEDS: CHOLECALCIFEROL (VITD3) 1,000IU=25mCg TAB PO SCH (09:01)
[2019-12-23 13:00] VITALS: BP 95/60
[2019-12-23 17:00] VITALS: BP 104/70
[2019-12-23] MEDS: MEXILETINE HYDROCHLORIDE 150 MG CAP PO SCH (18:00)
[2019-12-23 21:40] VITALS: BP 108/64
[2019-12-23] MEDS: ATORVASTATIN 20 MG TAB PO SCH (21:59)
[2019-12-24] MEDS: MORPHINE SULF INJ 2 MG/ML SYRINGE 1ML IV PRN ×3 (03:57→15:59)
[2019-12-24 05:00] VITALS: BP 108/62
[2019-12-24 07:07] LABS: Calcium 9.1 mg/dL (8.5-10.1)
[2019-12-24 07:13] LABS: Albumin 3.8 g/dL (3.4-5.0); BUN/Creatinine Ratio 26.4; Bilirubin, Total 1.7 mg/dL (0.2-1.0); Total Protein 7.4 g/dL (6.4-8.2)
[2019-12-24 07:21] LABS: Basophils # (auto) 0 10 ^3/uL (0-0.2); Basophils % (auto) 0.5 % (0.0-2.0); Eosinophils # (auto) 0.2 10 ^3/uL (0-0.8); Eosinophils % (auto) 3.9 % (0.0-7.0); Hemoglobin 17.6 g/dL (13.5-17.5); Lymphocytes # (auto) 1.1 10 ^3/uL (0.4-5.4); Lymphocytes % (auto) 20.4 % (10.0-50.0); Mean Corpuscular Hemoglobin 32.3 pg (28.0-32.0); Mean Corpuscular Hgb Conc. 33.2 g/dL (32.0-36.0); Mean Corpuscular Volume 97.3 fL (80.0-100.0); Monocytes # (auto) 0.8 10 ^3/uL (0-1.3); Monocytes % (auto) 14.1 % (0.0-12.0); Neutrophils # (auto) 3.3 10 ^3/uL (1.6-8.6); Neutrophils % (auto) 61.1 % (37.0-80.0); Platelet Count (auto) 203 10^3/uL (140-450); Red Blood Cells 5.45 10^6/uL (4.5-5.90); Red Cell Distribution Width 15.8 % (11.8-14.3); White Blood Cell 5.4 10^3/uL (4.4-10.8)
[2019-12-24 09:00] VITALS: BP 117/72
[2019-12-24] MEDS: ASPirin 81 mg TAB PO SCH (09:14)
[2019-12-24] MEDS: POTASSIUM CHL 20 Meq TABLET PO SCH (09:15)
[2019-12-24] MEDS: MEXILETINE HYDROCHLORIDE 150 MG CAP PO SCH ×3 (09:15→18:00)
[2019-12-24] MEDS: CHOLECALCIFEROL (VITD3) 1,000IU=25mCg TAB PO SCH (09:15)
[2019-12-24] MEDS ORDERED: SACUBITRIL-VALSARTAN 24mg/26mg TAB PO SCH (10:00)
[2019-12-24 13:00] VITALS: BP 107/68
[2019-12-24 17:00] VITALS: BP 129/71
[2019-12-24 17:58] VITALS: BP 129/71
== END 2019-12-24 19:50 | disposition home or self-care (01) | DRG 194 ==
LOC: EDBD 12:49 → ER 12:49 → TELE 12:50 → ICU WEST 12-22 09:14 → TELE-EAST 12-22 23:10
PROVIDERS: ADMIT Internal Medicine; ATTEND Internal Medicine
DX: I11.0 Hypertensive heart disease with heart failure (principal); I47.2 Ventricular tachycardia; I95.9 Hypotension, unspecified; N17.9 Acute kidney failure, unspecified; E11.21 Type 2 diabetes mellitus with diabetic nephropathy; E86.0 Dehydration; E44.1 Mild protein-calorie malnutrition; E87.1 Hypo-osmolality and hyponatremia; I50.23 Acute on chronic systolic (congestive) heart failure; I49.3 Ventricular premature depolarization; I25.110 Atherosclerotic heart disease of native coronary artery with unstable angina pectoris; E78.5 Hyperlipidemia, unspecified; I25.5 Ischemic cardiomyopathy; Z91.013 Allergy to seafood; Z95.810 Presence of automatic (implantable) cardiac defibrillator; Z87.891 Personal history of nicotine dependence; Z79.899 Other long term (current) drug therapy; Z79.82 Long term (current) use of aspirin; Z95.5 Presence of coronary angioplasty implant and graft; Z82.49 Family history of ischemic heart disease and other diseases of the circulatory system; Z83.3 Family history of diabetes mellitus; Z82.61 Family history of arthritis; Z82.3 Family history of stroke; Z80.8 Family history of malignant neoplasm of other organs or systems
CPT/HCPCS: 36415; 71045; 80053; 81001; 83735; 83880; 84443; 84484; 85025; 85379; 85610; 85730; 87081; 93005; G0378; J2405; J7060

== ENCOUNTER 2020-05-29 04:33 | Inpatient (IN) | payer MEDICAID ==
[~2020-05-29] VITALS: Ht 182.9 cm; Wt 91.1 kg
[2020-05-29] MEDS ORDERED: MEXI150C15 PO (06:36)
[2020-05-29] MEDS ORDERED: [UNRECOGNIZED DRUG - CODE] PO (06:36)
[2020-05-29] MEDS ORDERED: CHOL20007 PO (06:36)
[2020-05-29 06:49] LABS: Basophils # (auto) 0 10 ^3/uL (0-0.2); Basophils % (auto) 0.6 % (0.0-2.0); Eosinophils # (auto) 0.1 10 ^3/uL (0-0.8); Eosinophils % (auto) 1.7 % (0.0-7.0); Hemoglobin 14.1 g/dL (13.5-17.5); Lymphocytes # (auto) 0.9 10 ^3/uL (0.4-5.4); Lymphocytes % (auto) 13.3 % (10.0-50.0); Mean Corpuscular Hemoglobin 33.4 pg (28.0-32.0); Mean Corpuscular Hgb Conc. 33.7 g/dL (32.0-36.0); Mean Corpuscular Volume 99.2 fL (80.0-100.0); Monocytes # (auto) 0.6 10 ^3/uL (0-1.3); Monocytes % (auto) 9.1 % (0.0-12.0); Neutrophils % (auto) 75.3 % (37.0-80.0); Nucleated Red Blood Cells % 0.2 %; Platelet Count (auto) 195 10^3/uL (140-450); Red Blood Cells 4.24 10^6/uL (4.5-5.90); Red Cell Distribution Width 14.5 % (11.8-14.3); White Blood Cell 6.6 10^3/uL (4.4-10.8)
[2020-05-29 07:11] LABS: INR 1.27 (0.9-1.15); Partial Thromboplastin Time 31.1 sec (23.0-31.2)
[2020-05-29 07:28] LABS: Chloride 105 mmol/L (98-107); Potassium 4.3 mmol/L (3.5-5.1); Sodium 138 mmol/L (136-145)
[2020-05-29 07:30] LABS: Alanine Aminotransferase 37 U/L (16-61); Anion Gap 5 (5-15); BUN/Creatinine Ratio 20.8; Blood Urea Nitrogen 21 mg/dL (7-18); Calcium 8.7 mg/dL (8.5-10.1); Carbon Dioxide 28 mmol/L (21-32); GFR African American 98 mL/min; GFR Non-African American 81 mL/min; Glucose 102 mg/dL (74-106)
[2020-05-29 07:39] LABS: Albumin 3.4 g/dL (3.4-5.0); Alkaline Phosphatase 143 U/L (45-117); Aspartate Aminotransferase 26 U/L (15-37); Total Protein 6.7 g/dL (6.4-8.2)
[2020-05-29] MEDS ORDERED: FUROSEMIDE 40 MG/4 ML VIAL IV ONE (07:45)
[2020-05-29] MEDS ORDERED: ONDANSETRON HCL 4 MG/2 ML VIAL IM PRN (10:00)
[2020-05-29] MEDS: FUROSEMIDE 40 MG/4 ML VIAL IV SCH ×2 (10:00→17:06)
[2020-05-29] MEDS: POTASSIUM CHL 20 Meq TABLET PO SCH (10:00)
--- NOTE | 2020-05-29 10:07 | NUR ---
Telemetry admit from ER [facility] admitted to Telemetry unit after SBAR received. Patient oriented to ALLEY SRINIVASAN, primary RN, unit, room, bed, and unit policies regarding patient care and visiting hours. Patient now on continuous telemetry monitoring, tele box # 89 and telemetry reading on arrival to unit is . Patient placed on bedside oxygen, weighed by bedscale and encouraged to call if they need something. All questions and concerns addressed, patient verbalized understanding. Note:
[2020-05-29 10:37] VITALS: BP 108/76
[2020-05-29 13:00] VITALS: BP 115/81
[2020-05-29 17:00] VITALS: BP 108/86
--- NOTE | 2020-05-29 19:34 | NUR ---
Opening Shift Note Received report and assumed care of patient. Patient is asleep, awakens to voice. Patient is alert and oriented. Instructed patient on plan of care and to call for assistance as needed. Will continue to monitor.
[2020-05-29] MEDS: MORPHINE SULF INJ 2 MG/ML SYRINGE 1ML IV PRN (21:15)
--- NOTE | 2020-05-29 21:15 | NUR ---
Pain Medication Administration Patient is complaining of shoulder pain 8/. Will administer pain medication per MD order. Will reassess pain level and will continue to monitor.
--- NOTE | 2020-05-29 21:45 | NUR ---
Pain Level Reassessment Patient is asleep for pain level reassessment. No signs or symptoms of distress noted. Will continue to monitor.
[2020-05-29 22:00] VITALS: BP 113/75
[2020-05-30 05:00] VITALS: BP 103/75
[2020-05-30 05:27] LABS: Basophils # (auto) 0.1 10 ^3/uL (0-0.2); Basophils % (auto) 1.7 % (0.0-2.0); Eosinophils # (auto) 0.2 10 ^3/uL (0-0.8); Eosinophils % (auto) 4.4 % (0.0-7.0); Hematocrit 42.8 % (41.0-53.0); Hemoglobin 14.2 g/dL (13.5-17.5); Lymphocytes # (auto) 1.2 10 ^3/uL (0.4-5.4); Mean Corpuscular Hemoglobin 33.3 pg (28.0-32.0); Mean Corpuscular Volume 100.7 fL (80.0-100.0); Monocytes # (auto) 0.5 10 ^3/uL (0-1.3); Monocytes % (auto) 9.6 % (0.0-12.0); Neutrophils # (auto) 3.1 10 ^3/uL (1.6-8.6); Neutrophils % (auto) 60.3 % (37.0-80.0); Nucleated Red Blood Cells % 0.2 %; Platelet Count (auto) 181 10^3/uL (140-450); Red Blood Cells 4.25 10^6/uL (4.5-5.90); Red Cell Distribution Width 15.1 % (11.8-14.3); White Blood Cell 5.2 10^3/uL (4.4-10.8)
[2020-05-30 05:40] LABS: Albumin 3.4 g/dL (3.4-5.0); Calcium 8.9 mg/dL (8.5-10.1); Potassium 4.4 mmol/L (3.5-5.1)
[2020-05-30 05:45] LABS: BUN/Creatinine Ratio 23.7; Total Protein 6.7 g/dL (6.4-8.2)
[2020-05-30] MEDS: FUROSEMIDE 40 MG/4 ML VIAL IV SCH ×2 (06:26→18:23)
--- NOTE | 2020-05-30 07:35 | NUR ---
Opening Shift Note Assumed care of patient, awake and alert. No S/S of distress/SOB or pain. Instructed on POC and to call for assist PRN, will continue to monitor for changes Q1hr and PRN.
[2020-05-30 08:38] VITALS: BP 112/60
[2020-05-30] MEDS: POTASSIUM CHL 20 Meq TABLET PO SCH (10:48)
[2020-05-30] MEDS: MORPHINE SULF INJ 2 MG/ML SYRINGE 1ML IV PRN (10:49)
[2020-05-30 12:31] VITALS: BP 93/56
[2020-05-30] MEDS ORDERED: DEXTROSE (50%) 50ML SYRG IV PRN (16:00)
[2020-05-30 16:35] VITALS: BP_SYST 109; BP_DIAS 64; BP_DIAS 75
[2020-05-30] MEDS: InsuLIN REG 1unit/0.01ml Soln (100units/ml) SC SCH ×2 (17:00→22:00)
[2020-05-30] MEDS: ACCU-CHEK COMFORT CURVE STRIP VI SCH ×2 (18:24→22:39)
[2020-05-30 22:00] VITALS: BP 115/74
[2020-05-30] MEDS: CARVEDILOL 12.5 MG TAB PO SCH (22:38)
[2020-05-30] MEDS: SPIRONOLACTONE 25 MG TAB PO SCH (22:38)
[2020-05-30] MEDS: ATORVASTATIN 20 MG TAB PO SCH (22:39)
[2020-05-30] MEDS: ZOLPIDEM TARTRATE 5 MG TAB PO PRN (22:39)
[2020-05-31 04:49] VITALS: BP 103/59
[2020-05-31 06:18] LABS: Basophils # (auto) 0 10 ^3/uL (0-0.2); Eosinophils # (auto) 0.3 10 ^3/uL (0-0.8); Eosinophils % (auto) 5.8 % (0.0-7.0); Hematocrit 46.1 % (41.0-53.0); Hemoglobin 15.3 g/dL (13.5-17.5); Lymphocytes # (auto) 0.9 10 ^3/uL (0.4-5.4); Lymphocytes % (auto) 19.7 % (10.0-50.0); Mean Corpuscular Hgb Conc. 33.2 g/dL (32.0-36.0); Mean Corpuscular Volume 99.4 fL (80.0-100.0); Monocytes # (auto) 0.4 10 ^3/uL (0-1.3); Monocytes % (auto) 9.7 % (0.0-12.0); Neutrophils # (auto) 2.9 10 ^3/uL (1.6-8.6); Neutrophils % (auto) 63.8 % (37.0-80.0); Nucleated Red Blood Cells % 0.1 %; Platelet Count (auto) 215 10^3/uL (140-450); Red Blood Cells 4.64 10^6/uL (4.5-5.90); Red Cell Distribution Width 14.8 % (11.8-14.3); White Blood Cell 4.5 10^3/uL (4.4-10.8)
[2020-05-31 06:24] LABS: Albumin 3.5 g/dL (3.4-5.0); Potassium 4.4 mmol/L (3.5-5.1)
[2020-05-31] MEDS: FUROSEMIDE 40 MG/4 ML VIAL IV SCH ×2 (06:31→17:51)
[2020-05-31 06:34] LABS: BUN/Creatinine Ratio 29.3; Calcium 9.2 mg/dL (8.5-10.1); Total Protein 6.8 g/dL (6.4-8.2)
[2020-05-31] MEDS: InsuLIN REG 1unit/0.01ml Soln (100units/ml) SC SCH ×4 (06:37→22:15)
[2020-05-31] MEDS: ACCU-CHEK COMFORT CURVE STRIP VI SCH ×4 (06:37→22:16)
[2020-05-31 08:00] VITALS: BP 104/60
[2020-05-31 09:14] VITALS: BP 104/60
[2020-05-31] MEDS: ASPirin 81 mg TAB PO SCH (10:31)
[2020-05-31] MEDS: POTASSIUM CHL 20 Meq TABLET PO SCH (10:31)
[2020-05-31] MEDS: PANTOPRAZOLE 40 MG TAB PO SCH (10:32)
[2020-05-31] MEDS: SPIRONOLACTONE 25 MG TAB PO SCH ×2 (10:32→22:15)
[2020-05-31] MEDS: CARVEDILOL 12.5 MG TAB PO SCH ×2 (10:32→22:15)
[2020-05-31] MEDS: MORPHINE SULF INJ 2 MG/ML SYRINGE 1ML IV PRN ×2 (11:01→23:18)
[2020-05-31 12:35] VITALS: BP 99/71
[2020-05-31 16:41] VITALS: BP 96/70
--- NOTE | 2020-05-31 19:40 | NUR ---
Opening Shift Note Assumed care of patient, awake and alert. No S/S of distress/SOB or pain. Tele box matches pt all leads in place. Bed lowered and locked. Call light and bedside table are within reach. Instructed on POC and to call for assist PRN, will continue to monitor for changes Q1hr and PRN.
[2020-05-31 22:00] VITALS: BP 110/75
[2020-05-31] MEDS: ATORVASTATIN 20 MG TAB PO SCH (22:16)
[2020-06-01] MEDS: ZOLPIDEM TARTRATE 5 MG TAB PO PRN (00:42)
[2020-06-01 05:00] VITALS: BP 98/66
[2020-06-01 05:36] LABS: Basophils # (auto) 0.1 10 ^3/uL (0-0.2); Basophils % (auto) 0.9 % (0.0-2.0); Eosinophils # (auto) 0.3 10 ^3/uL (0-0.8); Hematocrit 47.5 % (41.0-53.0); Lymphocytes # (auto) 1.1 10 ^3/uL (0.4-5.4); Lymphocytes % (auto) 18.3 % (10.0-50.0); Mean Corpuscular Hemoglobin 33.3 pg (28.0-32.0); Mean Corpuscular Hgb Conc. 33.7 g/dL (32.0-36.0); Mean Corpuscular Volume 98.9 fL (80.0-100.0); Monocytes # (auto) 0.7 10 ^3/uL (0-1.3); Monocytes % (auto) 11.1 % (0.0-12.0); Neutrophils # (auto) 3.9 10 ^3/uL (1.6-8.6); Neutrophils % (auto) 64.7 % (37.0-80.0); Nucleated Red Blood Cells % 0.1 %; Platelet Count (auto) 233 10^3/uL (140-450); Red Cell Distribution Width 14.7 % (11.8-14.3); White Blood Cell 6.1 10^3/uL (4.4-10.8)
[2020-06-01] MEDS: FUROSEMIDE 40 MG/4 ML VIAL IV SCH ×2 (05:39→18:00)
[2020-06-01 05:57] LABS: Albumin 3.5 g/dL (3.4-5.0); Calcium 9.1 mg/dL (8.5-10.1); Potassium 4.2 mmol/L (3.5-5.1)
[2020-06-01 06:01] LABS: BUN/Creatinine Ratio 26.8
[2020-06-01] MEDS: InsuLIN REG 1unit/0.01ml Soln (100units/ml) SC SCH ×3 (06:57→17:00)
[2020-06-01] MEDS: ACCU-CHEK COMFORT CURVE STRIP VI SCH ×3 (06:57→17:00)
--- NOTE | 2020-06-01 07:35 | NUR ---
Opening Shift Note Assumed care of patient, Pt resting in bed. No S/S of distress/SOB or pain. Will continue to monitor for changes Q1hr and PRN.
[2020-06-01 08:00] VITALS: BP 98/65
[2020-06-01 09:31] VITALS: BP 98/65
[2020-06-01] MEDS: PANTOPRAZOLE 40 MG TAB PO SCH (10:28)
[2020-06-01] MEDS: SPIRONOLACTONE 25 MG TAB PO SCH (10:28)
[2020-06-01] MEDS: ASPirin 81 mg TAB PO SCH (10:28)
[2020-06-01] MEDS: POTASSIUM CHL 20 Meq TABLET PO SCH (10:29)
[2020-06-01] MEDS: CARVEDILOL 12.5 MG TAB PO SCH (10:29)
[2020-06-01 13:31] VITALS: BP 96/58
[2020-06-01 14:42] VITALS: BP 96/58
--- NOTE | 2020-06-01 15:45 | NUR ---
Discharge instructions given as ordered. Encourage to follow up with PMD as instructed. All questions and concerns addressed. Patient verbalized understanding. Medication reconciliation form completed and copy given to patient. Home medications held in Pharmacy returned to patient IV removed with catheter intact, pressure dressing applied. Telemetry unit returned to ICU. Patient pending taxi pickup.
[2020-06-01 16:46] VITALS: BP 99/65
--- NOTE | 2020-06-01 18:00 | NUR ---
IV LASIX NON ADMIN PATIENT IS DISCHARGED IV LINE REMOVED, PATIENT PENDING HEATSET WINDER OPERATOR
--- NOTE | 2020-06-01 18:20 | NUR ---
PATIENT TAKEN DOWN TO FRONT LOBBY TO WAIT FOR TAXI NO DISTRESS NOTED UPON DEPARTURE.
== END 2020-06-01 18:20 | disposition home or self-care (01) | DRG 194 ==
LOC: EDBD 04:33 → ER 04:33 → TELE 04:34 → TELE-WESTW 10:07
PROVIDERS: ADMIT Internal Medicine; ATTEND Internal Medicine
DX: I11.0 Hypertensive heart disease with heart failure (principal); I50.43 Acute on chronic combined systolic (congestive) and diastolic (congestive) heart failure; I42.0 Dilated cardiomyopathy; E11.40 Type 2 diabetes mellitus with diabetic neuropathy, unspecified; E78.5 Hyperlipidemia, unspecified; M19.90 Unspecified osteoarthritis, unspecified site; I25.10 Atherosclerotic heart disease of native coronary artery without angina pectoris; Z82.49 Family history of ischemic heart disease and other diseases of the circulatory system; Z83.3 Family history of diabetes mellitus; Z86.73 Personal history of transient ischemic attack (TIA), and cerebral infarction without residual deficits; Z87.891 Personal history of nicotine dependence; Z95.810 Presence of automatic (implantable) cardiac defibrillator
CPT/HCPCS: 36415; 71045; 80053; 80061; 82962; 83036; 83880; 84484; 85025; 85610; 85730; 93005; 96374; G0378; J1815

== ENCOUNTER 2020-12-03 14:56 | Inpatient (IN) | payer MEDICAID ==
[~2020-12-03] VITALS: Ht 182.9 cm; Wt 90.7 kg
[~2020-12-03 14:56] MED LIST changes: +CHOL20007 PO; +MEXI150C15 PO; +[UNRECOGNIZED DRUG - CODE] PO
[2020-12-03] MEDS ORDERED: ONDANSETRON HCL 4 MG/2 ML VIAL IV ONE (15:15)
[2020-12-03] MEDS ORDERED: MORPHINE SULFATE 4 MG/ML SYR/VIAL IV ONE (15:15)
[2020-12-03 15:55] LABS: Basophils # (auto) 0.1 10 ^3/uL (0-0.2); Basophils % (auto) 1.1 % (0.0-2.0); Eosinophils # (auto) 0.1 10 ^3/uL (0-0.8); Eosinophils % (auto) 1.7 % (0.0-7.0); Hematocrit 44.9 % (41.0-53.0); Hemoglobin 15.7 g/dL (13.5-17.5); Lymphocytes % (auto) 19.6 % (10.0-50.0); Mean Corpuscular Hemoglobin 33.8 pg (28.0-32.0); Mean Corpuscular Hgb Conc. 35.1 g/dL (32.0-36.0); Mean Corpuscular Volume 96.4 fL (80.0-100.0); Monocytes # (auto) 0.4 10 ^3/uL (0-1.3); Monocytes % (auto) 8.4 % (0.0-12.0); Neutrophils # (auto) 3.6 10 ^3/uL (1.6-8.6); Neutrophils % (auto) 69.2 % (37.0-80.0); Nucleated Red Blood Cells % 0.2 %; Red Blood Cells 4.66 10^6/uL (4.5-5.90); Red Cell Distribution Width 15.2 % (11.8-14.3); White Blood Cell 5.2 10^3/uL (4.4-10.8)
[2020-12-03 16:06] LABS: Albumin 3.7 g/dL (3.4-5.0); Calcium 8.3 mg/dL (8.5-10.1); Magnesium 2.1 mg/dL (1.6-2.6); Potassium 3.8 mmol/L (3.5-5.1)
[2020-12-03 16:13] LABS: BUN/Creatinine Ratio 18.1; Bilirubin, Total 1.2 mg/dL (0.2-1.0); Total Protein 6.7 g/dL (6.4-8.2)
[2020-12-03 16:14] LABS: INR 1.24 (0.9-1.15); Partial Thromboplastin Time 29.6 sec (23.0-31.2)
[2020-12-03] MEDS ORDERED: MORPHINE SULF INJ 2 MG/ML SYRINGE 1ML IV ONE (16:45)
[2020-12-03] MEDS ORDERED: SODIUM CHLORIDE 0.9% 1,000 ML IV ONE (16:45)
[2020-12-03 18:07] LABS: Urine WBC None Seen /hpf (0 - 3)
[2020-12-03 18:25] LABS: Urine Bacteria NONE SEEN /hpf (None Seen); Urine Blood TRACE /uL (Negative); Urine Specific Gravity 1.006 (1.001-1.035)
[2020-12-03 18:35] LABS: Alcohol, Urine < 3.0 mg/dL (0-10); Barbiturate Scree,Urine NEGATIVE (NEGATIVE); Benzodiazephine Screen, Urine NEGATIVE (NEGATIVE); Cannabinoid Screen, Urine NEGATIVE (NEGATIVE); Cocaine Screen, Urine NEGATIVE (NEGATIVE); Opiate Scree,Urine NEGATIVE (NEGATIVE); Phencyclidine Screen, Urine NEGATIVE (NEGATIVE)
[2020-12-03 18:44] LABS: Amphetamine Screen, Urine POSITIVE (NEGATIVE)
[2020-12-03] MEDS ORDERED: MORPHINE SULF INJ 2 MG/ML SYRINGE 1ML IV PRN (21:00)
[2020-12-03] MEDS ORDERED: ONDANSETRON HCL 4 MG/2 ML VIAL IV PRN (21:00)
[2020-12-03] MEDS ORDERED: NITROGLYCERIN 0.4 MG SL TAB SL PRN (21:00)
[2020-12-03] MEDS ORDERED: CARVEDILOL 12.5 MG TAB PO SCH (22:00)
[2020-12-03 22:59] VITALS: BP_SYST 100; BP_SYST 95; BP_DIAS 66; BP_DIAS 67
[2020-12-03 23:00] VITALS: BP 95/65
[2020-12-03] MEDS: metFORMIN HYDROCHLORIDE 500 MG TAB PO SCH (23:17)
[2020-12-04] MEDS: MORPHINE SULF INJ 2 MG/ML SYRINGE 1ML IV PRN ×4 (00:17→21:33)
[2020-12-04 04:53] VITALS: BP 109/72
[2020-12-04 08:15] LABS: Basophils # (auto) 0 10 ^3/uL (0-0.2); Lymphocytes # (auto) 1.3 10 ^3/uL (0.4-5.4); Monocytes # (auto) 0.5 10 ^3/uL (0-1.3); Neutrophils # (auto) 2.6 10 ^3/uL (1.6-8.6); Neutrophils % (auto) 56.9 % (37.0-80.0); White Blood Cell 4.6 10^3/uL (4.4-10.8)
[2020-12-04 08:17] LABS: Basophils % (auto) 0.8 % (0.0-2.0); Eosinophils # (auto) 0.2 10 ^3/uL (0-0.8); Eosinophils % (auto) 3.3 % (0.0-7.0); Hematocrit 48.3 % (41.0-53.0); Hemoglobin 16.7 g/dL (13.5-17.5); Lymphocytes % (auto) 28.8 % (10.0-50.0); Mean Corpuscular Hemoglobin 33.7 pg (28.0-32.0); Mean Corpuscular Hgb Conc. 34.5 g/dL (32.0-36.0); Mean Corpuscular Volume 97.7 fL (80.0-100.0); Monocytes % (auto) 10.2 % (0.0-12.0); Nucleated Red Blood Cells % 0.2 %; Red Blood Cells 4.94 10^6/uL (4.5-5.90); Red Cell Distribution Width 15.4 % (11.8-14.3)
[2020-12-04 08:32] LABS: Albumin 3.5 g/dL (3.4-5.0); BUN/Creatinine Ratio 16.3; Calcium 8.4 mg/dL (8.5-10.1); Potassium 4.3 mmol/L (3.5-5.1)
[2020-12-04 08:35] LABS: Bilirubin, Total 0.9 mg/dL (0.2-1.0); Total Protein 6.8 g/dL (6.4-8.2)
[2020-12-04 09:03] VITALS: BP 113/73
[2020-12-04] MEDS ORDERED: DAPAGLIFLOZIN 5 MG TAB PO SCH ×2 (10:00→10:30)
[2020-12-04] MEDS: CARVEDILOL 3.125 MG TAB PO SCH ×3 (11:16→21:33)
[2020-12-04] MEDS: ASPirin 81 mg TAB PO SCH (11:16)
[2020-12-04] MEDS: BUMETANIDE 2.5mg/10ml (0.25 mg/ml) INJ IV SCH ×2 (11:16→17:46)
[2020-12-04] MEDS: DAPAGLIFLOZIN 5 MG TAB PO SCH (11:17)
[2020-12-04 12:38] VITALS: BP 111/75
[2020-12-04 16:42] VITALS: BP 104/57
[2020-12-04] MEDS: metFORMIN HYDROCHLORIDE 500 MG TAB PO SCH ×2 (17:44→17:54)
[2020-12-04 21:43] VITALS: BP 118/80
[2020-12-05] MEDS: MORPHINE SULF INJ 2 MG/ML SYRINGE 1ML IV PRN ×3 (05:51→22:56)
[2020-12-05] MEDS: BUMETANIDE 2.5mg/10ml (0.25 mg/ml) INJ IV SCH ×2 (05:51→17:44)
[2020-12-05] MEDS: metFORMIN HYDROCHLORIDE 500 MG TAB PO SCH ×2 (05:52→17:44)
[2020-12-05 09:00] VITALS: BP 122/80
[2020-12-05] MEDS: ASPirin 81 mg TAB PO SCH (10:20)
[2020-12-05] MEDS: CARVEDILOL 3.125 MG TAB PO SCH ×2 (10:21→22:21)
[2020-12-05] MEDS: DAPAGLIFLOZIN 5 MG TAB PO SCH (10:21)
[2020-12-05 12:40] VITALS: BP 116/75
[2020-12-05 17:39] VITALS: BP 125/86
[2020-12-05 21:04] VITALS: BP 107/68
[2020-12-06] MEDS: MORPHINE SULF INJ 2 MG/ML SYRINGE 1ML IV PRN (04:06)
[2020-12-06 04:49] VITALS: BP 130/84
[2020-12-06] MEDS: BUMETANIDE 2.5mg/10ml (0.25 mg/ml) INJ IV SCH (06:05)
[2020-12-06] MEDS: metFORMIN HYDROCHLORIDE 500 MG TAB PO SCH (06:05)
[2020-12-06] MEDS: DAPAGLIFLOZIN 5 MG TAB PO SCH (08:31)
[2020-12-06] MEDS: ASPirin 81 mg TAB PO SCH (08:31)
[2020-12-06] MEDS: CARVEDILOL 3.125 MG TAB PO SCH (08:32)
[2020-12-06 08:46] VITALS: BP 116/81
[2020-12-06 08:56] VITALS: BP 116/81
[2020-12-06] MEDS ORDERED: NITROGLYCERIN 0.4 MG SL TAB SL PRN (09:00)
[2020-12-06] MEDS ORDERED: MORPHINE SULF INJ 2 MG/ML SYRINGE 1ML IV PRN (09:00)
== END 2020-12-06 09:25 | disposition home or self-care (01) | DRG 194 ==
LOC: ER 14:56 → EDBD 14:56 → OBSVTOIN 14:57 → TELE-WESTW 14:57 → UNDOADMOB 21:56 → INTOOBSV 21:56 → TELE-WESTW 22:23 → INTOOBSV 12-06 08:52 → OBSVTOIN 12-06 08:52 → UNDODISIN 12-06 09:20
PROVIDERS: ADMIT Internal Medicine; ATTEND Internal Medicine
DX: I11.0 Hypertensive heart disease with heart failure (principal); E11.40 Type 2 diabetes mellitus with diabetic neuropathy, unspecified; I42.8 Other cardiomyopathies; I25.110 Atherosclerotic heart disease of native coronary artery with unstable angina pectoris; I50.23 Acute on chronic systolic (congestive) heart failure; Z20.822 Contact with and (suspected) exposure to COVID-19; M19.90 Unspecified osteoarthritis, unspecified site; E78.5 Hyperlipidemia, unspecified; I25.5 Ischemic cardiomyopathy; K08.89 Other specified disorders of teeth and supporting structures; Z82.3 Family history of stroke; Z82.49 Family history of ischemic heart disease and other diseases of the circulatory system; Z83.3 Family history of diabetes mellitus; Z95.810 Presence of automatic (implantable) cardiac defibrillator; Z91.013 Allergy to seafood
CPT/HCPCS: 36415; 71045; 80053; 80307; 81001; 83735; 83880; 84484; 85025; 85379; 85610; 85730; 87426; 93005; 96361; 96374; 96375; G0378; J2405

== ENCOUNTER 2020-12-25 12:24 | Inpatient (IN) | payer MEDICAID ==
[~2020-12-25] VITALS: Ht 185.4 cm; Wt 92.9 kg
[2020-12-25] MEDS ORDERED: ASPirin 81 mg TAB PO ONE (13:15)
[2020-12-25 14:17] LABS: Basophils # (auto) 0 10 ^3/uL (0-0.2); Basophils % (auto) 0.6 % (0.0-2.0); Eosinophils # (auto) 0.1 10 ^3/uL (0-0.8); Hemoglobin 17.1 g/dL (13.5-17.5); Lymphocytes # (auto) 1.3 10 ^3/uL (0.4-5.4); Lymphocytes % (auto) 25.6 % (10.0-50.0); Mean Corpuscular Hemoglobin 33.2 pg (28.0-32.0); Mean Corpuscular Hgb Conc. 34.2 g/dL (32.0-36.0); Mean Corpuscular Volume 97.1 fL (80.0-100.0); Monocytes # (auto) 0.6 10 ^3/uL (0-1.3); Monocytes % (auto) 11.9 % (0.0-12.0); Neutrophils % (auto) 58.9 % (37.0-80.0); Nucleated Red Blood Cells % 0.2 %; Platelet Count (auto) 214 10^3/uL (140-450); Red Blood Cells 5.15 10^6/uL (4.5-5.90); Red Cell Distribution Width 15.4 % (11.8-14.3)
[2020-12-25 14:40] LABS: Alanine Aminotransferase 21 U/L (16-61); Albumin 3.6 g/dL (3.4-5.0); Anion Gap 6 (5-15); Aspartate Aminotransferase 21 U/L (15-37); BUN/Creatinine Ratio 18.8; Blood Urea Nitrogen 16 mg/dL (7-18); Calcium 8.7 mg/dL (8.5-10.1); Carbon Dioxide 24 mmol/L (21-32); Chloride 109 mmol/L (98-107); GFR African American 119 mL/min; GFR Non-African American 98 mL/min; Glucose 100 mg/dL (74-106); INR 1.12 (0.9-1.15); Magnesium 2.1 mg/dL (1.6-2.6); Partial Thromboplastin Time 29.6 sec (23.0-31.2); Potassium 4.2 mmol/L (3.5-5.1); Sodium 139 mmol/L (136-145)
[2020-12-25 14:46] LABS: Alkaline Phosphatase 126 U/L (45-117); Bilirubin, Total 0.9 mg/dL (0.2-1.0)
[2020-12-25] MEDS ORDERED: ONDANSETRON HCL 4 MG/2 ML VIAL IV ONE (15:00)
[2020-12-25] MEDS ORDERED: MORPHINE SULF INJ 2 MG/ML SYRINGE 1ML IV ONE (15:00)
[2020-12-25] MEDS ORDERED: ASPI1TAB37 PO (16:14)
[2020-12-25] MEDS ORDERED: NITR0.4D11 (16:14)
[2020-12-25 16:47] LABS: Urine Bacteria NONE SEEN /hpf (None Seen); Urine Blood Negative /uL (Negative); Urine Hyaline Cast FEW /lpf (0 - 2); Urine Mucus FEW (None Seen); Urine Specific Gravity 1.026 (1.001-1.035); Urine WBC 1 /hpf (0 - 3)
[2020-12-25] MEDS ORDERED: ONDANSETRON HCL 4 MG/2 ML VIAL IV PRN ×2 (17:00→21:15)
[2020-12-25] MEDS ORDERED: MORPHINE SULF INJ 2 MG/ML SYRINGE 1ML IV PRN ×3 (17:00→21:15)
[2020-12-25] MEDS ORDERED: NITROGLYCERIN 0.4 MG SL TAB SL PRN ×2 (17:00→21:00)
[2020-12-25 17:04] LABS: Alcohol, Urine < 3.0 mg/dL (0-10); Amphetamine Screen, Urine NEGATIVE (NEGATIVE); Barbiturate Scree,Urine NEGATIVE (NEGATIVE); Benzodiazephine Screen, Urine NEGATIVE (NEGATIVE); Cannabinoid Screen, Urine NEGATIVE (NEGATIVE); Cocaine Screen, Urine NEGATIVE (NEGATIVE); Opiate Scree,Urine NEGATIVE (NEGATIVE); Phencyclidine Screen, Urine NEGATIVE (NEGATIVE)
[2020-12-25 20:03] VITALS: BP 112/79
[2020-12-25] MEDS ORDERED: MORPHINE SULF INJ 2 MG/ML SYRINGE 1ML ONE (20:55)
[2020-12-25 22:00] VITALS: BP 112/79
[2020-12-25] MEDS ORDERED: ATORVASTATIN 20 MG TAB PO SCH (22:00)
[2020-12-25] MEDS ORDERED: SACUBITRIL VALSARTAN PO SCH (22:00)
[2020-12-25] MEDS: SACUBITRIL VALSARTAN PO SCH (22:00)
[2020-12-25] MEDS: ATORVASTATIN 20 MG TAB PO SCH (22:22)
[2020-12-26 05:00] VITALS: BP 116/78
[2020-12-26 08:00] VITALS: BP 112/77
[2020-12-26] MEDS: ASPirin-EC 81 mg tab PO SCH (09:54)
[2020-12-26] MEDS: SACUBITRIL VALSARTAN PO SCH ×2 (09:54→22:00)
[2020-12-26] MEDS ORDERED: ASPirin-EC 81 mg tab PO SCH (10:00)
[2020-12-26 12:00] VITALS: BP 98/55
[2020-12-26] MEDS: MORPHINE SULF INJ 2 MG/ML SYRINGE 1ML IV PRN ×2 (15:23→19:53)
[2020-12-26 16:00] VITALS: BP 110/81
[2020-12-26] MEDS: SPIRONOLACTONE 25 MG TAB PO SCH (18:00)
[2020-12-26] MEDS: BUMETANIDE 1 MG TAB PO SCH (18:00)
[2020-12-26 22:00] VITALS: BP 113/89
[2020-12-26] MEDS: ATORVASTATIN 20 MG TAB PO SCH (22:00)
[2020-12-27] MEDS: MORPHINE SULF INJ 2 MG/ML SYRINGE 1ML IV PRN ×4 (00:54→18:13)
[2020-12-27 05:00] VITALS: BP 100/63
[2020-12-27] MEDS: SPIRONOLACTONE 25 MG TAB PO SCH ×2 (05:44→18:11)
[2020-12-27] MEDS: BUMETANIDE 1 MG TAB PO SCH ×2 (05:45→18:12)
[2020-12-27 08:00] VITALS: BP 132/87
[2020-12-27] MEDS: ASPirin-EC 81 mg tab PO SCH (09:35)
[2020-12-27] MEDS: SACUBITRIL VALSARTAN PO SCH (10:00)
[2020-12-27 12:00] VITALS: BP 116/83
[2020-12-27 16:00] VITALS: BP 108/74
[2020-12-27 19:49] VITALS: BP 108/74
== END 2020-12-27 21:45 | disposition home or self-care (01) | DRG 194 ==
LOC: ER 12:24 → EDBD 12:24 → TELE-WESTW 17:04 → ER 19:57
PROVIDERS: ADMIT Internal Medicine; ATTEND Internal Medicine
DX: I11.0 Hypertensive heart disease with heart failure (principal); E11.40 Type 2 diabetes mellitus with diabetic neuropathy, unspecified; I95.9 Hypotension, unspecified; I42.8 Other cardiomyopathies; I25.110 Atherosclerotic heart disease of native coronary artery with unstable angina pectoris; I50.23 Acute on chronic systolic (congestive) heart failure; Z20.822 Contact with and (suspected) exposure to COVID-19; E78.5 Hyperlipidemia, unspecified; Z95.0 Presence of cardiac pacemaker; Z91.013 Allergy to seafood; Z82.3 Family history of stroke; Z82.49 Family history of ischemic heart disease and other diseases of the circulatory system; Z87.891 Personal history of nicotine dependence; Z83.3 Family history of diabetes mellitus; Z82.61 Family history of arthritis
CPT/HCPCS: 36415; 71045; 80053; 80307; 81001; 83735; 83880; 84443; 84484; 85025; 85610; 85730; 87081; 87426; 93005; 96374; 96375; G0378; J2405

== ENCOUNTER 2021-04-03 17:47 | Inpatient (IN) | payer MEDICAID ==
[~2021-04-03] VITALS: Ht 182.9 cm; Wt 86.1 kg
[~2021-04-03 17:47] MED LIST changes: +ASPI1TAB37 PO; +NITR0.4D11
[2021-04-03 18:52] LABS: Basophils # (auto) 0.2 10 ^3/uL (0-0.2); Basophils % (auto) 1.6 % (0.0-2.0); Eosinophils # (auto) 0.1 10 ^3/uL (0-0.8); Eosinophils % (auto) 0.9 % (0.0-7.0); Hemoglobin 15.6 g/dL (13.5-17.5); Lymphocytes # (auto) 0.6 10 ^3/uL (0.4-5.4); Lymphocytes % (auto) 6.2 % (10.0-50.0); Mean Corpuscular Hemoglobin 32.9 pg (28.0-32.0); Mean Corpuscular Hgb Conc. 33.9 g/dL (32.0-36.0); Mean Corpuscular Volume 97.2 fL (80.0-100.0); Monocytes # (auto) 0.9 10 ^3/uL (0-1.3); Neutrophils # (auto) 7.4 10 ^3/uL (1.6-8.6); Neutrophils % (auto) 81.3 % (37.0-80.0); Nucleated Red Blood Cells % 0.1 %; Red Blood Cells 4.73 10^6/uL (4.5-5.90); Red Cell Distribution Width 14.6 % (11.8-14.3); White Blood Cell 9.1 10^3/uL (4.4-10.8)
[2021-04-03 19:12] LABS: Albumin 3.6 g/dL (3.4-5.0); Anion Gap 5 (5-15); Blood Urea Nitrogen 17 mg/dL (7-18); Calcium 8.6 mg/dL (8.5-10.1); Carbon Dioxide 27 mmol/L (21-32); Chloride 105 mmol/L (98-107); Glucose 126 mg/dL (74-106); Potassium 4.4 mmol/L (3.5-5.1); Sodium 137 mmol/L (136-145)
[2021-04-03 19:17] LABS: Alanine Aminotransferase 15 U/L (16-61); Alkaline Phosphatase 127 U/L (45-117); Aspartate Aminotransferase 16 U/L (15-37); BUN/Creatinine Ratio 18.9; GFR African American 111 mL/min; GFR Non-African American 92 mL/min; Total Protein 7.4 g/dL (6.4-8.2)
[2021-04-03] MEDS ORDERED: FUROSEMIDE 40 MG/4 ML VIAL IV ONE (23:15)
[2021-04-04] MEDS ORDERED: MORPHINE SULFATE INJECTION 2 MG/ML SYRG IV PRN (00:30)
[2021-04-04] MEDS ORDERED: NITROGLYCERIN 0.4 MG SL TAB SL PRN (00:30)
[2021-04-04 06:59] LABS: Basophils # (auto) 0.1 10 ^3/uL (0-0.2); Basophils % (auto) 2.1 % (0.0-2.0); Eosinophils # (auto) 0.1 10 ^3/uL (0-0.8); Hematocrit 48.3 % (41.0-53.0); Hemoglobin 16.3 g/dL (13.5-17.5); Lymphocytes # (auto) 0.9 10 ^3/uL (0.4-5.4); Lymphocytes % (auto) 15.5 % (10.0-50.0); Mean Corpuscular Hgb Conc. 33.8 g/dL (32.0-36.0); Mean Corpuscular Volume 97.7 fL (80.0-100.0); Monocytes # (auto) 0.8 10 ^3/uL (0-1.3); Monocytes % (auto) 13.4 % (0.0-12.0); Nucleated Red Blood Cells % 0.1 %; Red Blood Cells 4.94 10^6/uL (4.5-5.90); Red Cell Distribution Width 14.7 % (11.8-14.3)
[2021-04-04 07:25] LABS: Albumin 3.6 g/dL (3.4-5.0); BUN/Creatinine Ratio 21.7; Calcium 9.1 mg/dL (8.5-10.1); Total Protein 7.5 g/dL (6.4-8.2)
[2021-04-04] MEDS: ONDANSETRON HCL 4 MG/2 ML VIAL IV PRN ×2 (08:29→19:11)
[2021-04-04] MEDS ORDERED: guaiFENesin-CODEINE Liq 5 ML UD PO ONE (09:15)
[2021-04-04] MEDS ORDERED: FUROSEMIDE 40 MG/4 ML VIAL IV SCH (10:00)
[2021-04-04] MEDS: BUMETANIDE 2.5mg/10ml (0.25 mg/ml) INJ IV SCH ×2 (11:11→18:07)
[2021-04-04] MEDS: MORPHINE SULFATE INJECTION 2 MG/ML SYRG IV PRN ×2 (11:24→19:10)
[2021-04-04] MEDS: SACUBITRIL-VALSARTAN 24mg/26mg TAB PO SCH (21:56)
[2021-04-04] MEDS: guaiFENesin-CODEINE Liq 5 ML UD PO PRN (23:34)
[2021-04-05 05:00] VITALS: BP 102/63
[2021-04-05] MEDS: BUMETANIDE 2.5mg/10ml (0.25 mg/ml) INJ IV SCH ×2 (05:54→17:39)
[2021-04-05 09:00] VITALS: BP 96/69
[2021-04-05] MEDS: SACUBITRIL-VALSARTAN 24mg/26mg TAB PO SCH ×2 (09:54→21:59)
[2021-04-05] MEDS: guaiFENesin-CODEINE Liq 5 ML UD PO PRN ×2 (10:03→17:39)
[2021-04-05] MEDS: ONDANSETRON HCL 4 MG/2 ML VIAL IV PRN (10:39)
[2021-04-05] MEDS: MORPHINE SULFATE INJECTION 2 MG/ML SYRG IV PRN ×2 (10:40→18:50)
[2021-04-05 11:24] LABS: Urine Bacteria NONE SEEN /hpf (None Seen); Urine Blood Negative /uL (Negative); Urine Specific Gravity 1.011 (1.001-1.035); Urine WBC 2 /hpf (0 - 3)
[2021-04-05 13:00] VITALS: BP 103/69
[2021-04-05 17:00] VITALS: BP 100/76
[2021-04-05] MEDS ORDERED: HYDROcodone-ACET 5/325MG TAB PO PRN (17:15)
[2021-04-05] MEDS ORDERED: ALBUTEROL SULF 2.5 MG/0.5ML(0.5%) NEB SOLN NEB PRN (18:45)
[2021-04-05] MEDS ORDERED: ALBUTEROL SULF 2.5 MG/0.5ML(0.5%) NEB SOLN ONE (19:24)
[2021-04-05 22:00] VITALS: BP 117/69
[2021-04-06 01:27] VITALS: BP 100/76
[2021-04-06 05:00] VITALS: BP 94/47
[2021-04-06 05:58] LABS: Potassium 3.8 mmol/L (3.5-5.1)
[2021-04-06] MEDS: BUMETANIDE 2.5mg/10ml (0.25 mg/ml) INJ IV SCH ×2 (06:00→17:50)
[2021-04-06 06:05] LABS: Albumin 3.1 g/dL (3.4-5.0); BUN/Creatinine Ratio 22.3; Bilirubin, Total 0.7 mg/dL (0.2-1.0); Magnesium 2.3 mg/dL (1.6-2.6); Total Protein 6.7 g/dL (6.4-8.2)
[2021-04-06 08:41] VITALS: BP 88/60
[2021-04-06] MEDS: SACUBITRIL-VALSARTAN 24mg/26mg TAB PO SCH ×2 (09:40→22:09)
[2021-04-06] MEDS: AZITHROMYCIN 500MG/ 250ML 250 ML IV SCH (09:41)
[2021-04-06 13:00] VITALS: BP 92/63
[2021-04-06] MEDS: MORPHINE SULFATE INJECTION 2 MG/ML SYRG IV PRN ×2 (14:33)
[2021-04-06] MEDS: guaiFENesin-CODEINE Liq 5 ML UD PO PRN ×3 (14:33→22:09)
[2021-04-06 17:00] VITALS: BP 111/69
[2021-04-06] MEDS ORDERED: traZODone HCL 50 MG TAB PO PRN (20:45)
[2021-04-06 22:00] VITALS: BP 95/59
[2021-04-07 05:00] VITALS: BP 80/35
[2021-04-07] MEDS: BUMETANIDE 2.5mg/10ml (0.25 mg/ml) INJ IV SCH (06:10)
[2021-04-07 09:00] VITALS: BP 106/65
[2021-04-07] MEDS: AZITHROMYCIN 500MG/ 250ML 250 ML IV SCH (09:57)
[2021-04-07] MEDS: SACUBITRIL-VALSARTAN 24mg/26mg TAB PO SCH (09:58)
[2021-04-07] MEDS: guaiFENesin-CODEINE Liq 5 ML UD PO PRN (11:11)
[2021-04-07 13:00] VITALS: BP 100/59
[2021-04-07] MEDS: MORPHINE SULFATE INJECTION 2 MG/ML SYRG IV PRN (13:54)
[2021-04-07 14:55] VITALS: BP 118/56
== END 2021-04-07 19:04 | disposition home or self-care (01) | DRG 194 ==
LOC: ER 17:47 → EDBD 17:47 → TELE 04-04 00:27 → TELE-WESTW 04-04 22:38
PROVIDERS: ADMIT Internal Medicine; ATTEND Internal Medicine
DX: I13.0 Hypertensive heart and chronic kidney disease with heart failure and stage 1 through stage 4 chronic kidney disease, or unspecified chronic kidney disease (principal); I42.8 Other cardiomyopathies; I95.9 Hypotension, unspecified; E11.22 Type 2 diabetes mellitus with diabetic chronic kidney disease; I25.10 Atherosclerotic heart disease of native coronary artery without angina pectoris; I50.43 Acute on chronic combined systolic (congestive) and diastolic (congestive) heart failure; E78.5 Hyperlipidemia, unspecified; Z20.822 Contact with and (suspected) exposure to COVID-19; N18.9 Chronic kidney disease, unspecified; Z91.013 Allergy to seafood; Z82.3 Family history of stroke; Z82.49 Family history of ischemic heart disease and other diseases of the circulatory system; Z83.3 Family history of diabetes mellitus; Z87.891 Personal history of nicotine dependence
CPT/HCPCS: 36415; 71045; 80053; 81001; 83735; 83880; 84484; 85025; 87081; 87426; 93005; 94640; G0378; J2405

== ENCOUNTER 2021-04-25 17:27 | Emergency (ER) | payer MEDICAID ==
[~2021-04-25] VITALS: Ht 182.9 cm; Wt 93.0 kg
[~2021-04-25 17:27] MED LIST changes: -ASPI1TAB37 PO; -CARV25TA PO; -CHOL20007 PO; -MEXI150C15 PO; -NITR0.4D11; -SACU1TAB4 PO
[2021-04-25 17:47] VITALS: BP 127/86
[2021-04-25 20:02] LABS: Basophils # (auto) 0.1 10 ^3/uL (0-0.2); Basophils % (auto) 0.7 % (0.0-2.0); Eosinophils # (auto) 0.5 10 ^3/uL (0-0.8); Eosinophils % (auto) 6.9 % (0.0-7.0); Hematocrit 46.6 % (41.0-53.0); Hemoglobin 15.5 g/dL (13.5-17.5); Lymphocytes # (auto) 1.2 10 ^3/uL (0.4-5.4); Mean Corpuscular Hemoglobin 32.1 pg (28.0-32.0); Mean Corpuscular Hgb Conc. 33.2 g/dL (32.0-36.0); Mean Corpuscular Volume 96.5 fL (80.0-100.0); Monocytes # (auto) 0.8 10 ^3/uL (0-1.3); Neutrophils # (auto) 4.6 10 ^3/uL (1.6-8.6); Neutrophils % (auto) 64.4 % (37.0-80.0); Red Blood Cells 4.83 10^6/uL (4.5-5.90); Red Cell Distribution Width 14.2 % (11.8-14.3); White Blood Cell 7.1 10^3/uL (4.4-10.8)
[2021-04-25 20:50] LABS: Albumin 3.8 g/dL (3.4-5.0); Anion Gap 5 (5-15); Blood Urea Nitrogen 15 mg/dL (7-18); Calcium 9.1 mg/dL (8.5-10.1); Carbon Dioxide 28 mmol/L (21-32); Chloride 106 mmol/L (98-107); Glucose 87 mg/dL (74-106); Magnesium 2.3 mg/dL (1.6-2.6); Potassium 4.3 mmol/L (3.5-5.1); Sodium 139 mmol/L (136-145)
[2021-04-25 20:56] LABS: Alanine Aminotransferase 21 U/L (16-61); Alkaline Phosphatase 101 U/L (45-117); Aspartate Aminotransferase 13 U/L (15-37); BUN/Creatinine Ratio 13.9; Bilirubin, Total 0.7 mg/dL (0.2-1.0); GFR African American 90 mL/min; GFR Non-African American 74 mL/min
== END 2021-04-26 01:58 | disposition left against medical advice (07) ==
LOC: EDBD 17:27 → ER 17:27 → EDUNIT# 17:27 → ER 22:49
DX: I20.8 Other forms of angina pectoris (principal); I11.0 Hypertensive heart disease with heart failure; I50.9 Heart failure, unspecified; E11.9 Type 2 diabetes mellitus without complications; E78.5 Hyperlipidemia, unspecified; Z87.891 Personal history of nicotine dependence; Z91.013 Allergy to seafood
CPT/HCPCS: 36415; 71046; 80053; 83735; 83880; 84484; 85025; 93005

== ENCOUNTER 2021-10-05 16:34 | Inpatient (IN) | payer MEDICAID ==
[~2021-10-05] VITALS: Ht 167.6 cm; Wt 92.4 kg
[2021-10-05 18:09] LABS: Basophils # (auto) 0.1 10 ^3/uL (0-0.2); Basophils % (auto) 0.9 % (0.0-2.0); Eosinophils # (auto) 0.1 10 ^3/uL (0-0.8); Eosinophils % (auto) 1.9 % (0.0-7.0); Hematocrit 48.8 % (41.0-53.0); Hemoglobin 16.5 g/dL (13.5-17.5); Lymphocytes # (auto) 0.7 10 ^3/uL (0.4-5.4); Lymphocytes % (auto) 12.1 % (10.0-50.0); Mean Corpuscular Hemoglobin 32.6 pg (28.0-32.0); Mean Corpuscular Hgb Conc. 33.9 g/dL (32.0-36.0); Mean Corpuscular Volume 96.1 fL (80.0-100.0); Monocytes # (auto) 0.7 10 ^3/uL (0-1.3); Monocytes % (auto) 11.2 % (0.0-12.0); Neutrophils # (auto) 4.4 10 ^3/uL (1.6-8.6); Neutrophils % (auto) 73.9 % (37.0-80.0); Nucleated Red Blood Cells % 0.1 %; Red Blood Cells 5.08 10^6/uL (4.5-5.90); Red Cell Distribution Width 15.2 % (11.8-14.3)
[2021-10-05 18:24] LABS: Albumin 3.9 g/dL (3.4-5.0); Calcium 9.1 mg/dL (8.5-10.1); Potassium 4.6 mmol/L (3.5-5.1)
[2021-10-05 18:30] LABS: BUN/Creatinine Ratio 18.3; Bilirubin, Total 1.3 mg/dL (0.2-1.0); Total Protein 7.3 g/dL (6.4-8.2)
[2021-10-05] MEDS ORDERED: ONDANSETRON HCL 4 MG/2 ML VIAL IV ONE (19:00)
[2021-10-05] MEDS ORDERED: FUROSEMIDE 40 MG/4 ML VIAL IV ONE (20:00)
[2021-10-05] MEDS ORDERED: ACETAMINOPHEN 325 MG TAB PO PRN (21:30)
[2021-10-05] MEDS ORDERED: MORPHINE SULFATE INJECTION 2 MG/ML SYRG IV PRN ×2 (21:30)
[2021-10-05] MEDS ORDERED: HYDROcodone-ACET 5/325MG TAB PO PRN (21:30)
[2021-10-05] MEDS ORDERED: NITROGLYCERIN 0.4 MG SL TAB SL PRN (21:30)
[2021-10-05] MEDS ORDERED: DOCUSATE SOD 100 MG CAP PO PRN (21:30)
[2021-10-05] MEDS ORDERED: TEMAZEPAM 15 MG CAP PO PRN (21:30)
[2021-10-05] MEDS ORDERED: ONDANSETRON HCL 4 MG/2 ML VIAL IV PRN (21:30)
[2021-10-06] VITALS (9 sets, daily range): BP systolic 105–138; BP diastolic 64–76
[2021-10-06 05:25] LABS: Basophils # (auto) 0 10 ^3/uL (0-0.2); Basophils % (auto) 0.6 % (0.0-2.0); Eosinophils # (auto) 0.1 10 ^3/uL (0-0.8); Eosinophils % (auto) 1.7 % (0.0-7.0); Hemoglobin 15.4 g/dL (13.5-17.5); Lymphocytes # (auto) 0.8 10 ^3/uL (0.4-5.4); Lymphocytes % (auto) 13.4 % (10.0-50.0); Mean Corpuscular Hemoglobin 32.8 pg (28.0-32.0); Mean Corpuscular Hgb Conc. 34.3 g/dL (32.0-36.0); Mean Corpuscular Volume 95.6 fL (80.0-100.0); Monocytes # (auto) 0.8 10 ^3/uL (0-1.3); Monocytes % (auto) 13.8 % (0.0-12.0); Neutrophils % (auto) 70.5 % (37.0-80.0); Nucleated Red Blood Cells % 0.2 %; Red Cell Distribution Width 15.1 % (11.8-14.3); White Blood Cell 5.6 10^3/uL (4.4-10.8)
[2021-10-06 05:46] LABS: Albumin 3.5 g/dL (3.4-5.0); BUN/Creatinine Ratio 18.1; Calcium 8.6 mg/dL (8.5-10.1); Potassium 3.8 mmol/L (3.5-5.1)
[2021-10-06 05:50] LABS: Bilirubin, Total 1.4 mg/dL (0.2-1.0); Total Protein 6.5 g/dL (6.4-8.2)
[2021-10-06] MEDS ORDERED: FUROSEMIDE 40 MG/4 ML VIAL IV ONE (09:00)
[2021-10-06] MEDS: ENOXAPARIN SOD 40 MG/0.4 ML SYRINGE SC SCH (09:06)
[2021-10-06] MEDS: PROMETHAZINE W/CODEINE 5 ML ORAL SYRUP PO PRN ×2 (10:32→15:13)
[2021-10-06 14:38] LABS: INR 1.22 (0.9-1.15)
[2021-10-06] MEDS: BUMETANIDE 2.5mg/10ml (0.25 mg/ml) INJ IV SCH ×2 (15:12→18:15)
[2021-10-06] MEDS: IPRATROPIUM BROM 0.5 MG/2.5ML INH SOL NEB SCH ×2 (18:25→22:30)
[2021-10-06] MEDS: ATORVASTATIN 20 MG TAB PO SCH (21:55)
[2021-10-07] VITALS (7 sets, daily range): BP systolic 98–126; BP diastolic 41–75
[2021-10-07] MEDS: PROMETHAZINE W/CODEINE 5 ML ORAL SYRUP PO PRN (01:09)
[2021-10-07] MEDS: BUMETANIDE 2.5mg/10ml (0.25 mg/ml) INJ IV SCH ×2 (05:50→19:01)
[2021-10-07] MEDS: IPRATROPIUM BROM 0.5 MG/2.5ML INH SOL NEB SCH ×6 (06:48→21:58)
[2021-10-07] MEDS: ENOXAPARIN SOD 40 MG/0.4 ML SYRINGE SC SCH (08:36)
[2021-10-07] MEDS ORDERED: SACU1TAB PO (09:47)
[2021-10-07] MEDS ORDERED: VERI2.5T PO (09:47)
[2021-10-07] MEDS ORDERED: MEXI150C15 PO (09:47)
[2021-10-07] MEDS ORDERED: LIDOCAINE 2%HCL (LOCAL ANESTH.) INJ 10ml MDV ONE (13:05)
[2021-10-07] MEDS ORDERED: IODIXANOL 320MG/ML 100ML BTL IV ONE (13:05)
[2021-10-07] MEDS ORDERED: methylPREDNISolone SOD SUCC 125 MG/2 ML VL ONE (13:18)
[2021-10-07] MEDS ORDERED: diphenhdrAMINE HCL 50 MG/1 ML VL ONE (13:18)
[2021-10-07] MEDS ORDERED: ANGIOMAX 250 MG VIAL IV ONE (13:18)
[2021-10-07] MEDS ORDERED: MIDAZOLAM HCL 2MG/2ML 2ml VIAL (1mg/ml) ONE (13:19)
[2021-10-07] MEDS ORDERED: SODIUM CHL 0.9% 0 ML ONE (13:19)
[2021-10-07] MEDS ORDERED: fentaNYL CITRATE 100 MCG/2 ML VL ONE (13:19)
[2021-10-07] MEDS ORDERED: VERAPAMIL 2.5MG/ML INJ 2ML VIAL IV ONE (13:20)
[2021-10-07] MEDS ORDERED: HEPARIN SODIUM (PORCINE) 5000 UNITS/ML 1ML VIAL ONE (13:20)
[2021-10-07] MEDS: ATORVASTATIN 20 MG TAB PO SCH (21:37)
[2021-10-07] MEDS: MORPHINE SULFATE 4 MG/ML SYR/VIAL IV PRN (21:37)
[2021-10-08 05:00] VITALS: BP 117/64
[2021-10-08] MEDS ORDERED: IPRATROPIUM BROM 0.5 MG/2.5ML INH SOL NEB PRN (05:15)
[2021-10-08] MEDS: BUMETANIDE 2.5mg/10ml (0.25 mg/ml) INJ IV SCH ×2 (06:24→17:27)
[2021-10-08 08:00] VITALS: BP 123/72
[2021-10-08 09:00] VITALS: BP 123/72
[2021-10-08] MEDS: ENOXAPARIN SOD 40 MG/0.4 ML SYRINGE SC SCH (09:16)
[2021-10-08] MEDS: MORPHINE SULFATE 4 MG/ML SYR/VIAL IV PRN (10:58)
[2021-10-08 13:00] VITALS: BP 112/74
[2021-10-08 16:55] VITALS: BP 117/83
[2021-10-08] MEDS: PROMETHAZINE W/CODEINE 5 ML ORAL SYRUP PO PRN (17:27)
[2021-10-08 18:36] VITALS: BP 117/83
== END 2021-10-08 20:30 | disposition home or self-care (01) | DRG 192 ==
LOC: EDUNIT# 16:34 → EDBD 16:34 → ER 16:34 → TELE 21:17 → TELE-CENTR 23:01
PROVIDERS: ADMIT Nurse Practitioner; ATTEND Nurse Practitioner
PROC: 4A023N6 Measurement of Cardiac Sampling and Pressure, Right Heart, Percutaneous Approach (ICD-10-PCS; principal; 2021-10-07)
PROC: B211YZZ Fluoroscopy of Multiple Coronary Arteries using Other Contrast (ICD-10-PCS; 2021-10-07)
DX: I13.0 Hypertensive heart and chronic kidney disease with heart failure and stage 1 through stage 4 chronic kidney disease, or unspecified chronic kidney disease (principal); I27.20 Pulmonary hypertension, unspecified; I95.9 Hypotension, unspecified; I42.8 Other cardiomyopathies; I25.110 Atherosclerotic heart disease of native coronary artery with unstable angina pectoris; I50.43 Acute on chronic combined systolic (congestive) and diastolic (congestive) heart failure; E11.22 Type 2 diabetes mellitus with diabetic chronic kidney disease; Z20.822 Contact with and (suspected) exposure to COVID-19; E66.9 Obesity, unspecified; E78.5 Hyperlipidemia, unspecified; N18.9 Chronic kidney disease, unspecified; I50.82 Biventricular heart failure; Z82.49 Family history of ischemic heart disease and other diseases of the circulatory system; Z83.3 Family history of diabetes mellitus; Z87.891 Personal history of nicotine dependence; Z82.3 Family history of stroke; Z95.0 Presence of cardiac pacemaker; Z91.013 Allergy to seafood; Z91.09 Other allergy status, other than to drugs and biological substances; Z68.32 Body mass index [BMI] 32.0-32.9, adult
CPT/HCPCS: 36415; 36600; 71045; 80053; 80061; 82805; 83036; 83880; 84484; 85025; 85610; 93005; 93306; 93456; 94640; 96374; 96375; 99152; 99153; C1751; G0378; J2001; J2250; J2405; Q9967

== ENCOUNTER 2021-11-28 14:04 | Inpatient (IN) | payer MEDICAID ==
[~2021-11-28] VITALS: Ht 182.9 cm; Wt 90.2 kg
[~2021-11-28 14:04] MED LIST changes: +MEXI150C15 PO; +SACU1TAB PO; +VERI2.5T PO; -[UNRECOGNIZED DRUG - CODE] PO
[2021-11-28 16:00] LABS: Basophils # (auto) 0 10 ^3/uL (0-0.2); Basophils % (auto) 0.7 % (0.0-2.0); Eosinophils # (auto) 0.1 10 ^3/uL (0-0.8); Eosinophils % (auto) 1.2 % (0.0-7.0); Hematocrit 47.4 % (41.0-53.0); Hemoglobin 15.9 g/dL (13.5-17.5); Lymphocytes % (auto) 16.9 % (10.0-50.0); Mean Corpuscular Hemoglobin 32.1 pg (28.0-32.0); Mean Corpuscular Hgb Conc. 33.5 g/dL (32.0-36.0); Monocytes # (auto) 0.7 10 ^3/uL (0-1.3); Monocytes % (auto) 10.9 % (0.0-12.0); Neutrophils # (auto) 4.2 10 ^3/uL (1.6-8.6); Neutrophils % (auto) 70.3 % (37.0-80.0); Nucleated Red Blood Cells % 0.2 %; Red Blood Cells 4.93 10^6/uL (4.5-5.90); Red Cell Distribution Width 14.9 % (11.8-14.3)
[2021-11-28] MEDS ORDERED: FUROSEMIDE 20 MG/2 ML VIAL IV ONE (18:00)
[2021-11-28] MEDS ORDERED: ONDANSETRON HCL 4 MG/2 ML VIAL IV PRN (20:00)
[2021-11-28] MEDS ORDERED: NITROGLYCERIN 0.4 MG SL TAB SL PRN (20:00)
[2021-11-28] MEDS ORDERED: TEMAZEPAM 15 MG CAP PO PRN (20:00)
[2021-11-28] MEDS ORDERED: MORPHINE SULFATE INJECTION 2 MG/ML SYRG IV PRN ×2 (20:00)
[2021-11-28] MEDS ORDERED: ACETAMINOPHEN 325 MG TAB PO PRN (20:00)
[2021-11-28] MEDS ORDERED: HYDROcodone-ACET 5/325MG TAB PO PRN (20:00)
[2021-11-28] MEDS ORDERED: BUMETANIDE 2.5mg/10ml (0.25 mg/ml) INJ IV ONE ×2 (20:15)
[2021-11-28 21:46] LABS: Potassium 3.9 mmol/L (3.5-5.1)
[2021-11-28 21:47] LABS: Albumin 3.5 g/dL (3.4-5.0); Bilirubin, Total 1.1 mg/dL (0.2-1.0); Total Protein 6.8 g/dL (6.4-8.2)
[2021-11-28 23:35] VITALS: BP 107/80
[2021-11-28 23:58] VITALS: BP 107/80
[2021-11-29] MEDS: ASCORBIC ACID 500 MG TAB PO SCH ×3 (00:07→21:40)
[2021-11-29 05:00] VITALS: BP 104/76
[2021-11-29] MEDS: BUMETANIDE 2.5mg/10ml (0.25 mg/ml) INJ IV SCH ×2 (05:38→17:57)
[2021-11-29 07:05] LABS: Basophils # (auto) 0.1 10 ^3/uL (0-0.2); Basophils % (auto) 1.3 % (0.0-2.0); Eosinophils # (auto) 0.1 10 ^3/uL (0-0.8); Eosinophils % (auto) 1.8 % (0.0-7.0); Hematocrit 45.5 % (41.0-53.0); Hemoglobin 15.6 g/dL (13.5-17.5); Lymphocytes % (auto) 16.5 % (10.0-50.0); Mean Corpuscular Hemoglobin 32.8 pg (28.0-32.0); Mean Corpuscular Hgb Conc. 34.3 g/dL (32.0-36.0); Mean Corpuscular Volume 95.6 fL (80.0-100.0); Monocytes # (auto) 0.6 10 ^3/uL (0-1.3); Monocytes % (auto) 9.6 % (0.0-12.0); Neutrophils # (auto) 4.1 10 ^3/uL (1.6-8.6); Neutrophils % (auto) 70.8 % (37.0-80.0); Nucleated Red Blood Cells % 0.1 %; Red Blood Cells 4.75 10^6/uL (4.5-5.90); Red Cell Distribution Width 14.9 % (11.8-14.3); White Blood Cell 5.8 10^3/uL (4.4-10.8)
[2021-11-29 07:23] LABS: Albumin 3.6 g/dL (3.4-5.0); BUN/Creatinine Ratio 15.7; Calcium 8.7 mg/dL (8.5-10.1); Potassium 3.7 mmol/L (3.5-5.1)
[2021-11-29 07:33] LABS: Bilirubin, Total 0.8 mg/dL (0.2-1.0); Total Protein 6.8 g/dL (6.4-8.2)
[2021-11-29 09:00] VITALS: BP 110/83
[2021-11-29] MEDS: ENOXAPARIN SOD 40 MG/0.4 ML SYRINGE SC SCH (09:17)
[2021-11-29] MEDS: MULTIPLE VITAMIN TAB PO SCH (09:17)
[2021-11-29] MEDS: ZINC SULFATE 220mg CAP or TAB PO SCH (09:17)
[2021-11-29] MEDS ORDERED: DEXTROSE (50%) 50ML SYRG IV PRN (09:45)
[2021-11-29] MEDS: SPIRONOLACTONE 25 MG TAB PO SCH ×2 (10:04→21:39)
[2021-11-29] MEDS: ACCU-CHEK COMFORT CURVE STRIP VI SCH ×3 (11:30→21:42)
[2021-11-29 12:36] LABS: Amphetamine Screen, Urine NEGATIVE (NEGATIVE); Barbiturate Scree,Urine NEGATIVE (NEGATIVE); Benzodiazephine Screen, Urine NEGATIVE (NEGATIVE); Cannabinoid Screen, Urine NEGATIVE (NEGATIVE); Cocaine Screen, Urine NEGATIVE (NEGATIVE); Opiate Scree,Urine NEGATIVE (NEGATIVE); Phencyclidine Screen, Urine NEGATIVE (NEGATIVE)
[2021-11-29 12:37] LABS: Alcohol, Urine < 3.0 mg/dL (0-10)
[2021-11-29 12:56] VITALS: BP 104/77
[2021-11-29] MEDS: InsuLIN REG 1unit/0.01ml Soln (100units/ml) SC SCH ×3 (13:04→21:41)
[2021-11-29 17:11] VITALS: BP 110/80
[2021-11-29 22:00] VITALS: BP 109/72
[2021-11-30 05:00] VITALS: BP 113/81
[2021-11-30 05:48] LABS: Magnesium 1.7 mg/dL (1.6-2.6)
[2021-11-30] MEDS: BUMETANIDE 2.5mg/10ml (0.25 mg/ml) INJ IV SCH ×2 (06:53→17:55)
[2021-11-30] MEDS: ACCU-CHEK COMFORT CURVE STRIP VI SCH (06:57)
[2021-11-30] MEDS: InsuLIN REG 1unit/0.01ml Soln (100units/ml) SC SCH (06:58)
[2021-11-30 09:00] VITALS: BP 116/59
[2021-11-30] MEDS: MULTIPLE VITAMIN TAB PO SCH (10:05)
[2021-11-30] MEDS: ASCORBIC ACID 500 MG TAB PO SCH ×2 (10:05→22:02)
[2021-11-30] MEDS: SPIRONOLACTONE 25 MG TAB PO SCH ×2 (10:05→22:02)
[2021-11-30] MEDS: ENOXAPARIN SOD 40 MG/0.4 ML SYRINGE SC SCH (10:05)
[2021-11-30] MEDS: ZINC SULFATE 220mg CAP or TAB PO SCH (10:05)
[2021-11-30] MEDS: MAGNESIUM SULFATE 1GM/100ML 100 ML IV SCH ×2 (10:06→12:34)
[2021-11-30 13:00] VITALS: BP 118/86
[2021-11-30 17:11] VITALS: BP 116/75
[2021-11-30] MEDS ORDERED: metOLazone 5 MG TAB PO ONE (17:15)
[2021-11-30 22:00] VITALS: BP 108/78
[2021-12-01 05:00] VITALS: BP 102/72
[2021-12-01] MEDS: BUMETANIDE 2.5mg/10ml (0.25 mg/ml) INJ IV SCH (06:23)
[2021-12-01 08:58] VITALS: BP 114/86
[2021-12-01] MEDS: ZINC SULFATE 220mg CAP or TAB PO SCH (09:43)
[2021-12-01] MEDS: SPIRONOLACTONE 25 MG TAB PO SCH (09:43)
[2021-12-01] MEDS: MULTIPLE VITAMIN TAB PO SCH (09:43)
[2021-12-01] MEDS: ENOXAPARIN SOD 40 MG/0.4 ML SYRINGE SC SCH (09:44)
[2021-12-01] MEDS: ASCORBIC ACID 500 MG TAB PO SCH (09:44)
[2021-12-01 12:57] VITALS: BP 112/63
[2021-12-01 14:44] LABS: BUN/Creatinine Ratio 15.8; Calcium 9.5 mg/dL (8.5-10.1); Magnesium 2.3 mg/dL (1.6-2.6); Potassium 3.9 mmol/L (3.5-5.1)
[2021-12-01 17:24] VITALS: BP 109/72
[2021-12-01 17:35] VITALS: BP 109/72
== END 2021-12-01 19:30 | disposition home health service (06) | DRG 133 ==
LOC: EDBD 14:04 → EDSEX 14:04 → EDUNIT# 14:04 → ER 14:04 → TELE 19:58 → TELE-CENTR 23:13
PROVIDERS: ADMIT Internal Medicine; ATTEND Internal Medicine
DX: J96.01 Acute respiratory failure with hypoxia (principal); I50.23 Acute on chronic systolic (congestive) heart failure; I95.9 Hypotension, unspecified; I11.0 Hypertensive heart disease with heart failure; I42.8 Other cardiomyopathies; E11.9 Type 2 diabetes mellitus without complications; I25.10 Atherosclerotic heart disease of native coronary artery without angina pectoris; Z20.822 Contact with and (suspected) exposure to COVID-19; E78.5 Hyperlipidemia, unspecified; Z72.0 Tobacco use; Z82.49 Family history of ischemic heart disease and other diseases of the circulatory system; Z83.3 Family history of diabetes mellitus; Z82.3 Family history of stroke; Z91.013 Allergy to seafood
CPT/HCPCS: 36415; 71046; 80048; 80053; 80061; 80307; 82962; 83036; 83735; 83880; 84484; 85025; 93005; 96374; G0378; J1815

== ENCOUNTER 2022-02-17 16:42 | Inpatient (IN) | payer MEDICAID ==
[~2022-02-17] VITALS: Ht 185.4 cm; Wt 91.0 kg
[2022-02-17 18:04] LABS: Basophils # (auto) 0 10 ^3/uL (0-0.2); Basophils % (auto) 0.5 % (0.0-2.0); Eosinophils # (auto) 0.1 10 ^3/uL (0-0.8); Eosinophils % (auto) 1.5 % (0.0-7.0); Hematocrit 49.4 % (41.0-53.0); Hemoglobin 16.8 g/dL (13.5-17.5); Lymphocytes # (auto) 1.4 10 ^3/uL (0.4-5.4); Lymphocytes % (auto) 23.6 % (10.0-50.0); Mean Corpuscular Volume 94.3 fL (80.0-100.0); Monocytes # (auto) 0.7 10 ^3/uL (0-1.3); Monocytes % (auto) 10.9 % (0.0-12.0); Neutrophils # (auto) 3.9 10 ^3/uL (1.6-8.6); Neutrophils % (auto) 63.5 % (37.0-80.0); Red Blood Cells 5.24 10^6/uL (4.5-5.90); Red Cell Distribution Width 14.2 % (11.8-14.3); White Blood Cell 6.1 10^3/uL (4.4-10.8)
[2022-02-17 18:05] LABS: Calcium 8.8 mg/dL (8.5-10.1); Potassium 3.5 mmol/L (3.5-5.1)
[2022-02-17 18:09] LABS: BUN/Creatinine Ratio 13.3; Bilirubin, Total 0.9 mg/dL (0.2-1.0); Total Protein 7.5 g/dL (6.4-8.2)
[2022-02-17] MEDS ORDERED: SODIUM CHLORIDE 0.9% 1,000 ML IVB ONE (18:30)
[2022-02-17] MEDS ORDERED: ASPirin 81 mg TAB PO ONE (18:30)
[2022-02-17] MEDS ORDERED: MORPHINE SULFATE 4 MG/ML SYR/VIAL IV ONE (20:00)
[2022-02-17] MEDS ORDERED: ONDANSETRON HCL 4 MG/2 ML VIAL IV ONE (20:15)
[2022-02-17] MEDS ORDERED: ONDANSETRON HCL 4 MG/2 ML VIAL IV PRN (21:30)
[2022-02-17] MEDS ORDERED: DOCUSATE SOD 100 MG CAP PO PRN (21:30)
[2022-02-17] MEDS ORDERED: DEXTROSE (50%) 50ML SYRG IV PRN (21:30)
[2022-02-17] MEDS ORDERED: MORPHINE SULFATE INJ 2 MG/ml SYRG IV PRN (21:30)
[2022-02-17] MEDS ORDERED: ACETAMINOPHEN 325 MG TAB PO PRN (21:30)
[2022-02-17] MEDS ORDERED: HYDROcodone-ACET 5/325MG TAB PO PRN (21:30)
[2022-02-17] MEDS ORDERED: NITROGLYCERIN 0.4 MG SL TAB SL PRN (23:15)
[2022-02-17] MEDS: ACCU-CHEK COMFORT CURVE STRIP VI SCH (23:16)
[2022-02-17] MEDS: InsuLIN REG 1unit/0.01ml Soln (100units/ml) SC SCH (23:16)
[2022-02-17] MEDS: ATORVASTATIN 20 MG TAB PO SCH (23:18)
[2022-02-18] VITALS (7 sets, daily range): BP systolic 95–116; BP diastolic 51–82
[2022-02-18] MEDS: ACCU-CHEK COMFORT CURVE STRIP VI SCH ×4 (06:00→22:49)
[2022-02-18] MEDS: InsuLIN REG 1unit/0.01ml Soln (100units/ml) SC SCH ×4 (06:00→22:00)
[2022-02-18] MEDS: BUMETANIDE 2.5mg/10ml (0.25 mg/ml) INJ IV SCH ×2 (06:13→18:23)
[2022-02-18 06:33] LABS: Albumin 3.8 g/dL (3.4-5.0); Calcium 8.8 mg/dL (8.5-10.1); Potassium 3.6 mmol/L (3.5-5.1)
[2022-02-18 06:35] LABS: Basophils # (auto) 0 10 ^3/uL (0-0.2); Basophils % (auto) 0.6 % (0.0-2.0); Eosinophils # (auto) 0.2 10 ^3/uL (0-0.8); Eosinophils % (auto) 3.1 % (0.0-7.0); Hematocrit 47.1 % (41.0-53.0); Lymphocytes # (auto) 1.2 10 ^3/uL (0.4-5.4); Lymphocytes % (auto) 22.2 % (10.0-50.0); Mean Corpuscular Hemoglobin 32.2 pg (28.0-32.0); Mean Corpuscular Hgb Conc. 33.9 g/dL (32.0-36.0); Mean Corpuscular Volume 95.1 fL (80.0-100.0); Monocytes # (auto) 0.5 10 ^3/uL (0-1.3); Monocytes % (auto) 9.5 % (0.0-12.0); Neutrophils # (auto) 3.6 10 ^3/uL (1.6-8.6); Neutrophils % (auto) 64.6 % (37.0-80.0); Nucleated Red Blood Cells % 0.1 %; Red Blood Cells 4.96 10^6/uL (4.5-5.90); Red Cell Distribution Width 14.3 % (11.8-14.3); White Blood Cell 5.6 10^3/uL (4.4-10.8)
[2022-02-18 06:36] LABS: BUN/Creatinine Ratio 20.2; Total Protein 6.8 g/dL (6.4-8.2)
[2022-02-18] MEDS: ASPirin 81 mg TAB PO SCH (10:12)
[2022-02-18] MEDS: MORPHINE SULFATE INJ 2 MG/ml SYRG IV PRN (18:09)
[2022-02-18] MEDS ORDERED: ATORVASTATIN 20 MG TAB PO SCH (22:00)
[2022-02-18] MEDS: SACUBITRIL-VALSARTAN 24mg/26mg TAB PO SCH (22:46)
[2022-02-18] MEDS: SPIRONOLACTONE 25 MG TAB PO SCH (22:46)
[2022-02-18] MEDS: ATORVASTATIN 20 MG TAB PO SCH (22:46)
[2022-02-18] MEDS: MEXILETINE HYDROCHLORIDE 150 MG CAP PO SCH (22:46)
[2022-02-18] MEDS: IVABRADINE 5 MG TAB PO SCH (22:47)
[2022-02-18] MEDS ORDERED: ZOLPIDEM TARTRATE 5 MG TAB PO PRN (23:15)
[2022-02-19] VITALS (7 sets, daily range): BP systolic 97–109; BP diastolic 48–67
[2022-02-19] MEDS: MEXILETINE HYDROCHLORIDE 150 MG CAP PO SCH ×2 (06:23→14:19)
[2022-02-19] MEDS: ACCU-CHEK COMFORT CURVE STRIP VI SCH ×3 (06:24→17:55)
[2022-02-19] MEDS: BUMETANIDE 2.5mg/10ml (0.25 mg/ml) INJ IV SCH ×2 (06:26→18:00)
[2022-02-19] MEDS: InsuLIN REG 1unit/0.01ml Soln (100units/ml) SC SCH ×3 (06:27→17:00)
[2022-02-19 06:56] LABS: Calcium 8.9 mg/dL (8.5-10.1); Magnesium 2.1 mg/dL (1.6-2.6); Potassium 3.7 mmol/L (3.5-5.1)
[2022-02-19 06:59] LABS: BUN/Creatinine Ratio 20.7
[2022-02-19] MEDS: ASPirin 81 mg TAB PO SCH (09:49)
[2022-02-19] MEDS: SPIRONOLACTONE 25 MG TAB PO SCH (09:49)
[2022-02-19] MEDS: IVABRADINE 5 MG TAB PO SCH (09:49)
[2022-02-19] MEDS: SACUBITRIL-VALSARTAN 24mg/26mg TAB PO SCH (09:50)
[2022-02-19] MEDS ORDERED: VERICIGUAT 2.5 MG PO SCH (10:00)
[2022-02-19] MEDS ORDERED: CHOLECALCIFEROL (VITD3) 1,000UNIT=25mCg TAB PO SCH (10:00)
[2022-02-19] MEDS: MORPHINE SULFATE INJ 2 MG/ml SYRG IV PRN (16:48)
== END 2022-02-19 19:44 | disposition home or self-care (01) | DRG 198 ==
LOC: EDUNIT# 16:42 → ER 16:42 → EDBD 16:42 → TELE-CENTR 23:04
PROVIDERS: ADMIT Nurse Practitioner Family; ATTEND Nurse Practitioner Family
DX: I25.110 Atherosclerotic heart disease of native coronary artery with unstable angina pectoris (principal); I50.23 Acute on chronic systolic (congestive) heart failure; I11.0 Hypertensive heart disease with heart failure; I95.9 Hypotension, unspecified; E11.65 Type 2 diabetes mellitus with hyperglycemia; R09.89 Other specified symptoms and signs involving the circulatory and respiratory systems; Z20.822 Contact with and (suspected) exposure to COVID-19; E78.5 Hyperlipidemia, unspecified; Z82.3 Family history of stroke; Z82.49 Family history of ischemic heart disease and other diseases of the circulatory system; Z83.3 Family history of diabetes mellitus; Z87.891 Personal history of nicotine dependence; Z91.013 Allergy to seafood; Z91.018 Allergy to other foods
CPT/HCPCS: 36415; 71045; 80048; 80053; 80061; 82962; 83036; 83735; 83880; 84484; 85025; 85379; 93005; 96374; 96375; G0378; J1815; J2405

== ENCOUNTER 2022-04-19 10:35 | Emergency (ER) | payer MEDICAID ==
[~2022-04-19] VITALS: Ht 177.8 cm; Wt 90.0 kg
[2022-04-19 10:53] VITALS: BP 94/59
[2022-04-19 11:31] LABS: Basophils # (auto) 0 10 ^3/uL (0-0.2); Basophils % (auto) 0.8 % (0.0-2.0); Eosinophils # (auto) 0.1 10 ^3/uL (0-0.8); Eosinophils % (auto) 2.4 % (0.0-7.0); Hematocrit 47.1 % (41.0-53.0); Hemoglobin 15.6 g/dL (13.5-17.5); Lymphocytes # (auto) 1.2 10 ^3/uL (0.4-5.4); Lymphocytes % (auto) 21.1 % (10.0-50.0); Mean Corpuscular Hemoglobin 31.3 pg (28.0-32.0); Mean Corpuscular Hgb Conc. 33.1 g/dL (32.0-36.0); Mean Corpuscular Volume 94.6 fL (80.0-100.0); Monocytes # (auto) 0.5 10 ^3/uL (0-1.3); Monocytes % (auto) 8.7 % (0.0-12.0); Neutrophils # (auto) 3.7 10 ^3/uL (1.6-8.6); Nucleated Red Blood Cells % 0.2 %; Red Blood Cells 4.98 10^6/uL (4.5-5.90); Red Cell Distribution Width 14.7 % (11.8-14.3); White Blood Cell 5.5 10^3/uL (4.4-10.8)
[2022-04-19 11:47] LABS: INR 1.15 (0.9-1.15)
[2022-04-19] MEDS ORDERED: MORPHINE SULFATE 4 MG/ML SYR/VIAL IV ONE (12:15)
[2022-04-19] MEDS ORDERED: ONDANSETRON HCL 4 MG/2 ML VIAL IV ONE (12:15)
== END 2022-04-19 19:07 | disposition left against medical advice (07) ==
LOC: EDBD 10:35 → EDUNIT# 10:35 → ER 10:35
DX: R07.89 Other chest pain (principal); I11.0 Hypertensive heart disease with heart failure; I50.9 Heart failure, unspecified; I25.10 Atherosclerotic heart disease of native coronary artery without angina pectoris; E11.9 Type 2 diabetes mellitus without complications; E78.5 Hyperlipidemia, unspecified; Z95.0 Presence of cardiac pacemaker; Z87.891 Personal history of nicotine dependence; Z79.82 Long term (current) use of aspirin; Z79.899 Other long term (current) drug therapy; Z91.013 Allergy to seafood
CPT/HCPCS: 36415; 71045; 83735; 83880; 84484; 85025; 85610; 85730; 93005

== ENCOUNTER 2022-07-29 14:35 | Inpatient (IN) | payer MEDICAID ==
[~2022-07-29] VITALS: Ht 182.9 cm; Wt 87.3 kg
[2022-07-29] MEDS ORDERED: ALBUTEROL SULF 2.5 MG/0.5ML(0.5%) NEB SOLN HHN ONE (16:00)
[2022-07-29 16:59] LABS: Albumin 4.2 g/dL (3.4-5.0); BUN/Creatinine Ratio 26.9; Calcium 9.3 mg/dL (8.5-10.1); Potassium 4.4 mmol/L (3.5-5.1)
[2022-07-29 17:00] LABS: Basophils # (auto) 0.1 10 ^3/uL (0-0.2); Basophils % (auto) 0.8 % (0.0-2.0); Eosinophils # (auto) 0.2 10 ^3/uL (0-0.8); Eosinophils % (auto) 2.8 % (0.0-7.0); Hematocrit 42.3 % (41.0-53.0); Hemoglobin 14.7 g/dL (13.5-17.5); Lymphocytes # (auto) 1.4 10 ^3/uL (0.4-5.4); Lymphocytes % (auto) 21.6 % (10.0-50.0); Mean Corpuscular Hemoglobin 32.3 pg (28.0-32.0); Mean Corpuscular Hgb Conc. 34.8 g/dL (32.0-36.0); Monocytes # (auto) 0.7 10 ^3/uL (0-1.3); Monocytes % (auto) 10.4 % (0.0-12.0); Neutrophils # (auto) 4.3 10 ^3/uL (1.6-8.6); Neutrophils % (auto) 64.4 % (37.0-80.0); Nucleated Red Blood Cells % 0.2 %; Red Blood Cells 4.55 10^6/uL (4.5-5.90); Red Cell Distribution Width 14.1 % (11.8-14.3); White Blood Cell 6.6 10^3/uL (4.4-10.8)
[2022-07-29 17:02] LABS: Total Protein 7.3 g/dL (6.4-8.2)
[2022-07-29] MEDS ORDERED: FUROSEMIDE 40 MG/4 ML VIAL IV ONE (21:15)
[2022-07-29] MEDS ORDERED: PIPERACILLIN-TAZOB 3.375GM 100 ML IV ONE (21:15)
[2022-07-29] MEDS ORDERED: MORPHINE SULFATE INJ 2 MG/ml SYRG IV PRN (22:00)
[2022-07-29] MEDS ORDERED: ACETAMINOPHEN 325 MG TAB PO PRN (22:00)
[2022-07-29] MEDS ORDERED: DOCUSATE SOD 100 MG CAP PO PRN (22:00)
[2022-07-29] MEDS ORDERED: NITROGLYCERIN 0.4 MG SL TAB SL PRN (22:00)
[2022-07-29] MEDS: SODIUM CHLOR 0.9% PF (SALINE LOCK) 10ML VIAL/SYR IV SCH (22:06)
[2022-07-29 23:05] LABS: Alcohol, Urine < 3.0 mg/dL (0-10); Amphetamine Screen, Urine NEGATIVE (NEGATIVE); Barbiturate Scree,Urine NEGATIVE (NEGATIVE); Benzodiazephine Screen, Urine NEGATIVE (NEGATIVE); Cannabinoid Screen, Urine NEGATIVE (NEGATIVE); Cocaine Screen, Urine NEGATIVE (NEGATIVE); Opiate Scree,Urine NEGATIVE (NEGATIVE); Phencyclidine Screen, Urine NEGATIVE (NEGATIVE)
[2022-07-29 23:17] LABS: Urine Bacteria NONE SEEN /hpf (None Seen); Urine Blood Negative /uL (Negative); Urine Mucus FEW (None Seen); Urine Specific Gravity 1.031 (1.001-1.035); Urine WBC 1 /hpf (0 - 3)
[2022-07-30] MEDS: SPIRONOLACTONE 25 MG TAB PO SCH ×3 (01:52→22:12)
[2022-07-30] MEDS: ATORVASTATIN 20 MG TAB PO SCH ×2 (01:52→22:12)
[2022-07-30] MEDS: MEXILETINE HYDROCHLORIDE 150 MG CAP PO SCH ×4 (01:52→22:12)
[2022-07-30] MEDS: SACUBITRIL-VALSARTAN 24mg/26mg TAB PO SCH ×3 (01:52→22:14)
[2022-07-30] MEDS: HYDROcodone-ACET 5/325MG TAB PO PRN ×3 (01:57→22:12)
[2022-07-30] MEDS: SODIUM CHLOR 0.9% PF (SALINE LOCK) 10ML VIAL/SYR IV SCH ×3 (06:12→22:15)
[2022-07-30 08:43] VITALS: BP_SYST 100; BP_SYST 105; BP_DIAS 70; BP_DIAS 75
[2022-07-30 09:00] VITALS: BP 100/70
[2022-07-30] MEDS: ASPirin 81 mg TAB PO SCH (09:59)
[2022-07-30] MEDS: VERICIGUAT PO SCH (10:00)
[2022-07-30] MEDS: CHOLECALCIFEROL (VITD3) 1,000UNIT=25mCg TAB PO SCH (10:00)
[2022-07-30] MEDS: IVABRADINE 7.5 MG PO SCH ×2 (10:00→22:00)
[2022-07-30 13:00] VITALS: BP 100/80
[2022-07-30] MEDS: ONDANSETRON HCL 4 MG/2 ML VIAL IV PRN (16:19)
[2022-07-30 18:20] VITALS: BP 99/66
[2022-07-30 22:00] VITALS: BP 102/68
[2022-07-31 05:00] VITALS: BP 97/68
[2022-07-31] MEDS: MEXILETINE HYDROCHLORIDE 150 MG CAP PO SCH ×3 (05:39→21:45)
[2022-07-31] MEDS: SODIUM CHLOR 0.9% PF (SALINE LOCK) 10ML VIAL/SYR IV SCH ×3 (05:40→21:47)
[2022-07-31] MEDS: SPIRONOLACTONE 25 MG TAB PO SCH ×2 (09:16→21:46)
[2022-07-31] MEDS: ASPirin 81 mg TAB PO SCH (09:17)
[2022-07-31] MEDS: SACUBITRIL-VALSARTAN 24mg/26mg TAB PO SCH ×2 (09:17→21:45)
[2022-07-31 09:33] VITALS: BP 95/65
[2022-07-31] MEDS: VERICIGUAT PO SCH (10:00)
[2022-07-31] MEDS: IVABRADINE 7.5 MG PO SCH ×2 (10:00→21:46)
[2022-07-31] MEDS: BUMETANIDE 2.5mg/10ml (0.25 mg/ml) INJ IV SCH (10:34)
[2022-07-31] MEDS: CHOLECALCIFEROL (VITD3) 1,000UNIT=25mCg TAB PO SCH (11:23)
[2022-07-31 12:36] VITALS: BP 91/63
[2022-07-31] MEDS: HYDROcodone-ACET 5/325MG TAB PO PRN ×2 (15:37→21:46)
[2022-07-31 16:38] VITALS: BP 98/67
[2022-07-31] MEDS ORDERED: metOLazone 5 MG TAB PO ONE (18:00)
[2022-07-31] MEDS: ATORVASTATIN 20 MG TAB PO SCH (21:45)
[2022-07-31 22:00] VITALS: BP 101/64
[2022-08-01 05:00] VITALS: BP 101/67
[2022-08-01] MEDS: SODIUM CHLOR 0.9% PF (SALINE LOCK) 10ML VIAL/SYR IV SCH ×3 (05:32→21:36)
[2022-08-01] MEDS: MEXILETINE HYDROCHLORIDE 150 MG CAP PO SCH ×3 (06:38→21:35)
[2022-08-01] MEDS: BUMETANIDE 2.5mg/10ml (0.25 mg/ml) INJ IV SCH (08:57)
[2022-08-01] MEDS: IVABRADINE 7.5 MG PO SCH ×2 (08:58→21:37)
[2022-08-01] MEDS: SPIRONOLACTONE 25 MG TAB PO SCH ×2 (09:01→21:35)
[2022-08-01] MEDS: ASPirin 81 mg TAB PO SCH (09:01)
[2022-08-01] MEDS: SACUBITRIL-VALSARTAN 24mg/26mg TAB PO SCH ×2 (09:01→21:34)
[2022-08-01 09:27] VITALS: BP 88/59
[2022-08-01] MEDS: CHOLECALCIFEROL (VITD3) 1,000UNIT=25mCg TAB PO SCH (10:00)
[2022-08-01 12:36] VITALS: BP 96/65
[2022-08-01] MEDS: PANTOPRAZOLE 40 MG TAB PO SCH (14:16)
[2022-08-01] MEDS: HYDROcodone-ACET 5/325MG TAB PO PRN ×2 (14:16→20:37)
[2022-08-01 16:36] VITALS: BP 95/67
[2022-08-01] MEDS ORDERED: metOLazone 5 MG TAB PO ONE (17:00)
[2022-08-01] MEDS: ZOLPIDEM TARTRATE 5 MG TAB PO PRN (20:37)
[2022-08-01] MEDS: ATORVASTATIN 20 MG TAB PO SCH (21:35)
[2022-08-01 22:00] VITALS: BP 116/75
[2022-08-02 05:00] VITALS: BP 104/69
[2022-08-02] MEDS: SODIUM CHLOR 0.9% PF (SALINE LOCK) 10ML VIAL/SYR IV SCH ×3 (05:37→22:09)
[2022-08-02] MEDS: MEXILETINE HYDROCHLORIDE 150 MG CAP PO SCH ×3 (05:41→22:06)
[2022-08-02 06:20] LABS: Basophils # (auto) 0 10 ^3/uL (0-0.2); Basophils % (auto) 0.6 % (0.0-2.0); Eosinophils # (auto) 0.2 10 ^3/uL (0-0.8); Eosinophils % (auto) 3.2 % (0.0-7.0); Hematocrit 46.4 % (41.0-53.0); Hemoglobin 16.5 g/dL (13.5-17.5); Lymphocytes # (auto) 1.6 10 ^3/uL (0.4-5.4); Lymphocytes % (auto) 20.4 % (10.0-50.0); Mean Corpuscular Hemoglobin 32.7 pg (28.0-32.0); Mean Corpuscular Hgb Conc. 35.5 g/dL (32.0-36.0); Mean Corpuscular Volume 92.1 fL (80.0-100.0); Monocytes # (auto) 0.9 10 ^3/uL (0-1.3); Monocytes % (auto) 11.1 % (0.0-12.0); Neutrophils % (auto) 64.7 % (37.0-80.0); Nucleated Red Blood Cells % 0.1 %; Red Blood Cells 5.04 10^6/uL (4.5-5.90); Red Cell Distribution Width 13.8 % (11.8-14.3); White Blood Cell 7.7 10^3/uL (4.4-10.8)
[2022-08-02 06:28] LABS: Potassium 4.6 mmol/L (3.5-5.1)
[2022-08-02 06:41] LABS: Albumin 4.2 g/dL (3.4-5.0); BUN/Creatinine Ratio 24.5; Bilirubin, Total 0.6 mg/dL (0.2-1.0); Calcium 9.1 mg/dL (8.5-10.1); Magnesium 2.1 mg/dL (1.6-2.6); Total Protein 7.1 g/dL (6.4-8.2)
[2022-08-02 09:37] VITALS: BP 102/67
[2022-08-02] MEDS: BUMETANIDE 2.5mg/10ml (0.25 mg/ml) INJ IV SCH (11:29)
[2022-08-02] MEDS: PANTOPRAZOLE 40 MG TAB PO SCH (11:29)
[2022-08-02] MEDS: ASPirin 81 mg TAB PO SCH (11:29)
[2022-08-02] MEDS: SPIRONOLACTONE 25 MG TAB PO SCH ×2 (11:29→22:06)
[2022-08-02] MEDS: CHOLECALCIFEROL (VITD3) 1,000UNIT=25mCg TAB PO SCH (11:30)
[2022-08-02] MEDS: SACUBITRIL-VALSARTAN 24mg/26mg TAB PO SCH ×2 (11:30→22:06)
[2022-08-02] MEDS: HYDROcodone-ACET 5/325MG TAB PO PRN ×2 (11:46→20:22)
[2022-08-02 13:00] VITALS: BP 98/69
[2022-08-02] MEDS ORDERED: MORPHINE SULFATE 4 MG/ML SYR/VIAL IV ONE (16:00)
[2022-08-02 16:46] VITALS: BP 110/81
[2022-08-02 22:00] VITALS: BP 105/71
[2022-08-02] MEDS: IVABRADINE 7.5 MG PO SCH (22:00)
[2022-08-02] MEDS: ONDANSETRON HCL 4 MG/2 ML VIAL IV PRN (22:05)
[2022-08-02] MEDS: ATORVASTATIN 20 MG TAB PO SCH (22:06)
[2022-08-02] MEDS: ZOLPIDEM TARTRATE 5 MG TAB PO PRN (22:07)
[2022-08-03 05:00] VITALS: BP 110/79
[2022-08-03] MEDS: SODIUM CHLOR 0.9% PF (SALINE LOCK) 10ML VIAL/SYR IV SCH (06:04)
[2022-08-03] MEDS: MEXILETINE HYDROCHLORIDE 150 MG CAP PO SCH (06:04)
[2022-08-03 09:00] VITALS: BP 95/65
[2022-08-03] MEDS: ASPirin 81 mg TAB PO SCH (09:28)
[2022-08-03] MEDS: PANTOPRAZOLE 40 MG TAB PO SCH (09:28)
[2022-08-03] MEDS: SPIRONOLACTONE 25 MG TAB PO SCH (09:28)
[2022-08-03] MEDS: SACUBITRIL-VALSARTAN 24mg/26mg TAB PO SCH (09:28)
[2022-08-03] MEDS: IVABRADINE 7.5 MG PO SCH ×2 (09:30→09:31)
[2022-08-03] MEDS: BUMETANIDE 2.5mg/10ml (0.25 mg/ml) INJ IV SCH (09:30)
[2022-08-03] MEDS: CHOLECALCIFEROL (VITD3) 1,000UNIT=25mCg TAB PO SCH (09:30)
[2022-08-03 12:14] VITALS: BP 98/65
== END 2022-08-03 13:25 | disposition home or self-care (01) | DRG 194 ==
LOC: EDUNIT# 14:35 → EDBD 14:35 → ER 14:35 → OVERFLOW 21:49 → TELE-EAST 07-30 08:03
PROVIDERS: ADMIT Internal Medicine; ATTEND Nurse Practitioner
DX: I11.0 Hypertensive heart disease with heart failure (principal); I95.9 Hypotension, unspecified; I42.9 Cardiomyopathy, unspecified; I50.43 Acute on chronic combined systolic (congestive) and diastolic (congestive) heart failure; R79.89 Other specified abnormal findings of blood chemistry; E78.00 Pure hypercholesterolemia, unspecified; E11.9 Type 2 diabetes mellitus without complications; I25.10 Atherosclerotic heart disease of native coronary artery without angina pectoris; Z91.013 Allergy to seafood; E78.5 Hyperlipidemia, unspecified; Z82.3 Family history of stroke; Z82.49 Family history of ischemic heart disease and other diseases of the circulatory system; Z83.3 Family history of diabetes mellitus; Z87.891 Personal history of nicotine dependence; Z95.810 Presence of automatic (implantable) cardiac defibrillator
CPT/HCPCS: 36415; 71045; 80053; 80307; 81001; 83735; 83880; 84484; 85025; 85379; 87426; 87804; 93005; 93306; 94640; 96365; 96366; 96375; G0378; J2405; J2543

== ENCOUNTER 2022-10-01 18:02 | Inpatient (IN) | payer MEDICAID ==
[~2022-10-01] VITALS: Ht 182.9 cm; Wt 89.3 kg
[2022-10-01 18:44] LABS: Basophils # (auto) 0.1 10 ^3/uL (0-0.2); Basophils % (auto) 0.8 % (0.0-2.0); Eosinophils # (auto) 0.1 10 ^3/uL (0-0.8); Eosinophils % (auto) 1.8 % (0.0-7.0); Hematocrit 42.3 % (41.0-53.0); Hemoglobin 14.5 g/dL (13.5-17.5); Lymphocytes # (auto) 1.2 10 ^3/uL (0.4-5.4); Lymphocytes % (auto) 19.6 % (10.0-50.0); Mean Corpuscular Hemoglobin 32.1 pg (28.0-32.0); Mean Corpuscular Hgb Conc. 34.2 g/dL (32.0-36.0); Monocytes # (auto) 0.5 10 ^3/uL (0-1.3); Monocytes % (auto) 8.1 % (0.0-12.0); Neutrophils # (auto) 4.3 10 ^3/uL (1.6-8.6); Neutrophils % (auto) 69.7 % (37.0-80.0); Nucleated Red Blood Cells % 0.2 %; Red Cell Distribution Width 14.9 % (11.8-14.3); White Blood Cell 6.2 10^3/uL (4.4-10.8)
[2022-10-01 19:08] LABS: Albumin 3.9 g/dL (3.4-5.0); Calcium 8.6 mg/dL (8.5-10.1); Potassium 3.3 mmol/L (3.5-5.1)
[2022-10-01 19:13] LABS: BUN/Creatinine Ratio 26.5; Bilirubin, Total 1.5 mg/dL (0.2-1.0); Total Protein 6.6 g/dL (6.4-8.2)
[2022-10-01] MEDS ORDERED: ACETAMINOPHEN 325 MG TAB PO PRN (23:00)
[2022-10-01] MEDS ORDERED: DOCUSATE SOD 100 MG CAP PO PRN (23:00)
[2022-10-01] MEDS ORDERED: DEXTROSE (50%) 50ML SYRG IV PRN (23:00)
[2022-10-01] MEDS ORDERED: FUROSEMIDE 20 MG/2 ML VIAL IV ONE (23:00)
[2022-10-01] MEDS ORDERED: POTASSIUM CHL 20 Meq TABLET PO ONE (23:00)
[2022-10-02] MEDS ORDERED: MORPHINE SULFATE INJ 2 MG/ml SYRG IV PRN (00:45)
[2022-10-02] MEDS ORDERED: NITROGLYCERIN 0.4 MG SL TAB SL PRN (00:45)
[2022-10-02] MEDS: FUROSEMIDE 40 MG/4 ML VIAL IV SCH ×2 (04:40→10:44)
[2022-10-02] MEDS: SODIUM CHLOR 0.9% PF (SALINE LOCK) 10ML VIAL/SYR IV SCH ×3 (06:08→22:22)
[2022-10-02 06:52] LABS: Basophils # (auto) 0.1 10 ^3/uL (0-0.2); Basophils % (auto) 0.8 % (0.0-2.0); Eosinophils # (auto) 0.1 10 ^3/uL (0-0.8); Hematocrit 43.5 % (41.0-53.0); Hemoglobin 14.6 g/dL (13.5-17.5); Lymphocytes # (auto) 1.1 10 ^3/uL (0.4-5.4); Lymphocytes % (auto) 16.6 % (10.0-50.0); Mean Corpuscular Hemoglobin 31.9 pg (28.0-32.0); Mean Corpuscular Hgb Conc. 33.5 g/dL (32.0-36.0); Mean Corpuscular Volume 95.2 fL (80.0-100.0); Monocytes # (auto) 0.5 10 ^3/uL (0-1.3); Monocytes % (auto) 7.6 % (0.0-12.0); Neutrophils # (auto) 4.8 10 ^3/uL (1.6-8.6); Nucleated Red Blood Cells % 0.3 %; Red Blood Cells 4.57 10^6/uL (4.5-5.90); Red Cell Distribution Width 15.1 % (11.8-14.3); White Blood Cell 6.6 10^3/uL (4.4-10.8)
[2022-10-02 07:10] LABS: Potassium 3.4 mmol/L (3.5-5.1)
[2022-10-02 07:14] LABS: Albumin 3.9 g/dL (3.4-5.0); BUN/Creatinine Ratio 23.4; Calcium 8.9 mg/dL (8.5-10.1)
[2022-10-02 07:27] LABS: Bilirubin, Total 1.3 mg/dL (0.2-1.0); Total Protein 7.1 g/dL (6.4-8.2)
[2022-10-02] MEDS: ACCU-CHEK COMFORT CURVE STRIP VI SCH ×4 (07:56→22:43)
[2022-10-02] MEDS: InsuLIN REG 1unit/0.01ml Soln (100units/ml) SC SCH ×4 (07:56→22:43)
[2022-10-02] MEDS ORDERED: FAMOTIDINE (10MG/ML) 2ML VL IV SCH (10:00)
[2022-10-02] MEDS: ASPirin 81 mg TAB PO SCH (10:45)
[2022-10-02] MEDS: CARVEDILOL 3.125 MG TAB PO SCH ×2 (10:45→22:00)
[2022-10-02] MEDS: HYDROcodone-ACET 5/325MG TAB PO PRN ×2 (10:52→21:20)
[2022-10-02] MEDS: ONDANSETRON HCL 4 MG/2 ML VIAL IV PRN (12:20)
[2022-10-02] MEDS: BUMETANIDE 2.5mg/10ml (0.25 mg/ml) INJ IV SCH (12:20)
[2022-10-02] MEDS ORDERED: metOLazone 5 MG TAB PO ONE (16:00)
[2022-10-02] MEDS: SPIRONOLACTONE 25 MG TAB PO SCH (17:58)
[2022-10-02 22:46] LABS: Urine Bacteria NONE SEEN /hpf (None Seen); Urine Blood Negative /uL (Negative); Urine Hyaline Cast MOD /lpf (0 - 2); Urine Specific Gravity 1.009 (1.001-1.035); Urine WBC <1 /hpf (0 - 3)
[2022-10-02] MEDS: ATORVASTATIN 20 MG TAB PO SCH (22:59)
[2022-10-02 23:01] LABS: Alcohol, Urine < 3.0 mg/dL (0-10); Amphetamine Screen, Urine NEGATIVE (NEGATIVE); Barbiturate Scree,Urine NEGATIVE (NEGATIVE); Benzodiazephine Screen, Urine NEGATIVE (NEGATIVE); Cannabinoid Screen, Urine NEGATIVE (NEGATIVE); Cocaine Screen, Urine NEGATIVE (NEGATIVE); Opiate Scree,Urine NEGATIVE (NEGATIVE); Phencyclidine Screen, Urine NEGATIVE (NEGATIVE)
[2022-10-03] MEDS ORDERED: CARV3.1240 PO (04:19)
[2022-10-03] MEDS ORDERED: DAPA1TAB4 PO (04:19)
[2022-10-03 04:26] VITALS: BP 108/77
[2022-10-03 04:51] VITALS: BP 108/77
[2022-10-03] MEDS: InsuLIN REG 1unit/0.01ml Soln (100units/ml) SC SCH ×4 (06:16→21:33)
[2022-10-03] MEDS: ACCU-CHEK COMFORT CURVE STRIP VI SCH ×4 (06:16→21:33)
[2022-10-03] MEDS: SODIUM CHLOR 0.9% PF (SALINE LOCK) 10ML VIAL/SYR IV SCH ×3 (06:17→21:33)
[2022-10-03] MEDS: SPIRONOLACTONE 25 MG TAB PO SCH ×2 (06:27→17:44)
[2022-10-03] MEDS: HYDROcodone-ACET 5/325MG TAB PO PRN ×2 (06:28→17:44)
[2022-10-03] MEDS: ONDANSETRON HCL 4 MG/2 ML VIAL IV PRN ×2 (06:28→10:55)
[2022-10-03 08:00] VITALS: BP 106/71
[2022-10-03 08:05] LABS: Calcium 9.1 mg/dL (8.5-10.1); Potassium 3.8 mmol/L (3.5-5.1)
[2022-10-03 08:07] LABS: BUN/Creatinine Ratio 22.5
[2022-10-03] MEDS: ASPirin 81 mg TAB PO SCH (09:32)
[2022-10-03] MEDS: CARVEDILOL 3.125 MG TAB PO SCH ×2 (09:33→21:32)
[2022-10-03] MEDS: BUMETANIDE 2.5mg/10ml (0.25 mg/ml) INJ IV SCH (09:33)
[2022-10-03 12:00] VITALS: BP 120/66
[2022-10-03 16:00] VITALS: BP 110/78
[2022-10-03] MEDS: ATORVASTATIN 20 MG TAB PO SCH (21:32)
[2022-10-03 22:00] VITALS: BP 108/83
[2022-10-04 05:10] VITALS: BP 110/73
[2022-10-04] MEDS: SODIUM CHLOR 0.9% PF (SALINE LOCK) 10ML VIAL/SYR IV SCH ×2 (06:02→14:00)
[2022-10-04] MEDS: InsuLIN REG 1unit/0.01ml Soln (100units/ml) SC SCH ×2 (06:03→12:01)
[2022-10-04] MEDS: ACCU-CHEK COMFORT CURVE STRIP VI SCH ×2 (06:03→12:01)
[2022-10-04] MEDS: SPIRONOLACTONE 25 MG TAB PO SCH (06:33)
[2022-10-04] MEDS: BUMETANIDE 2.5mg/10ml (0.25 mg/ml) INJ IV SCH (10:06)
[2022-10-04] MEDS: CARVEDILOL 3.125 MG TAB PO SCH (10:07)
[2022-10-04] MEDS: ASPirin 81 mg TAB PO SCH (10:07)
[2022-10-04 13:00] VITALS: BP 115/81
== END 2022-10-04 14:26 | disposition home or self-care (01) | DRG 194 ==
LOC: EDBD 18:02 → ER 18:05 → TELE 10-02 00:35 → TELE-CENTR 10-03 02:45
PROVIDERS: ADMIT Nurse Practitioner Family; ATTEND Hospitalist
DX: I11.0 Hypertensive heart disease with heart failure (principal); E86.0 Dehydration; I24.9 Acute ischemic heart disease, unspecified; I25.110 Atherosclerotic heart disease of native coronary artery with unstable angina pectoris; I50.43 Acute on chronic combined systolic (congestive) and diastolic (congestive) heart failure; I25.5 Ischemic cardiomyopathy; E78.5 Hyperlipidemia, unspecified; E87.6 Hypokalemia; E11.9 Type 2 diabetes mellitus without complications; Z20.822 Contact with and (suspected) exposure to COVID-19; Z83.3 Family history of diabetes mellitus; Z82.49 Family history of ischemic heart disease and other diseases of the circulatory system; Z91.013 Allergy to seafood; Z87.891 Personal history of nicotine dependence; Z82.3 Family history of stroke; Z91.119 Patient's noncompliance with dietary regimen due to unspecified reason; Z95.0 Presence of cardiac pacemaker; Z98.61 Coronary angioplasty status; Z79.84 Long term (current) use of oral hypoglycemic drugs
CPT/HCPCS: 36415; 71045; 80048; 80053; 80307; 81001; 82962; 83880; 84484; 85025; 85379; 87426; 93005; G0378; G0463; J1815; J2405; J3490

== ENCOUNTER 2022-10-29 16:08 | Inpatient (IN) | payer MEDICAID ==
[~2022-10-29] VITALS: Ht 182.9 cm; Wt 91.0 kg
[~2022-10-29 16:08] MED LIST changes: +CARV3.1240 PO; +DAPA1TAB4 PO
[2022-10-29 16:43] LABS: Basophils # (auto) 0.1 10 ^3/uL (0-0.2); Basophils % (auto) 1.2 % (0.0-2.0); Eosinophils # (auto) 0.1 10 ^3/uL (0-0.8); Eosinophils % (auto) 1.7 % (0.0-7.0); Hemoglobin 15.3 g/dL (13.5-17.5); Lymphocytes # (auto) 0.9 10 ^3/uL (0.4-5.4); Lymphocytes % (auto) 13.7 % (10.0-50.0); Mean Corpuscular Hemoglobin 31.7 pg (28.0-32.0); Mean Corpuscular Hgb Conc. 34.1 g/dL (32.0-36.0); Monocytes # (auto) 0.6 10 ^3/uL (0-1.3); Monocytes % (auto) 8.3 % (0.0-12.0); Neutrophils # (auto) 5.1 10 ^3/uL (1.6-8.6); Neutrophils % (auto) 75.1 % (37.0-80.0); Nucleated Red Blood Cells % 0.3 %; Red Blood Cells 4.84 10^6/uL (4.5-5.90); Red Cell Distribution Width 15.1 % (11.8-14.3); White Blood Cell 6.8 10^3/uL (4.4-10.8)
[2022-10-29 17:05] LABS: Urine Bacteria NONE SEEN /hpf (None Seen); Urine Blood TRACE /uL (Negative); Urine Hyaline Cast FEW /lpf (0 - 2); Urine Mucus FEW (None Seen); Urine Specific Gravity 1.018 (1.001-1.035); Urine WBC <1 /hpf (0 - 3)
[2022-10-29 17:06] LABS: Albumin 3.9 g/dL (3.4-5.0); Calcium 9.1 mg/dL (8.5-10.1); Potassium 3.6 mmol/L (3.5-5.1)
[2022-10-29 17:08] LABS: BUN/Creatinine Ratio 18.2 (10.0-20.0)
[2022-10-29 17:10] LABS: Bilirubin, Total 1.6 mg/dL (0.2-1.0); Total Protein 7.1 g/dL (6.4-8.2)
[2022-10-29] MEDS ORDERED: FUROSEMIDE 40 MG/4 ML VIAL IV ONE (18:30)
[2022-10-29] MEDS ORDERED: NITROGLYCERIN 0.4 MG SL TAB SL PRN (21:30)
[2022-10-29] MEDS ORDERED: TEMAZEPAM 15 MG CAP PO PRN (21:30)
[2022-10-29] MEDS ORDERED: DEXTROSE (50%) 50ML SYRG IV PRN (21:30)
[2022-10-29] MEDS ORDERED: ACETAMINOPHEN 325 MG TAB PO PRN (21:30)
[2022-10-29] MEDS ORDERED: ONDANSETRON HCL 4 MG/2 ML VIAL IV PRN (21:30)
[2022-10-29] MEDS: SACUBITRIL-VALSARTAN 24mg/26mg TAB PO SCH (22:18)
[2022-10-29] MEDS: CARVEDILOL 3.125 MG TAB PO SCH (22:18)
[2022-10-29] MEDS: ATORVASTATIN 20 MG TAB PO SCH (22:18)
[2022-10-29] MEDS: ACCU-CHEK COMFORT CURVE STRIP VI SCH (23:32)
[2022-10-29] MEDS: InsuLIN REG 1unit/0.01ml Soln (100units/ml) SC SCH (23:32)
[2022-10-30 05:15] LABS: Basophils # (auto) 0.1 10 ^3/uL (0-0.2); Basophils % (auto) 1.1 % (0.0-2.0); Eosinophils # (auto) 0.2 10 ^3/uL (0-0.8); Eosinophils % (auto) 3.4 % (0.0-7.0); Hematocrit 43.1 % (41.0-53.0); Hemoglobin 14.8 g/dL (13.5-17.5); Lymphocytes % (auto) 16.6 % (10.0-50.0); Mean Corpuscular Hemoglobin 32.8 pg (28.0-32.0); Mean Corpuscular Hgb Conc. 34.3 g/dL (32.0-36.0); Mean Corpuscular Volume 95.6 fL (80.0-100.0); Monocytes # (auto) 0.5 10 ^3/uL (0-1.3); Monocytes % (auto) 7.5 % (0.0-12.0); Neutrophils # (auto) 4.5 10 ^3/uL (1.6-8.6); Neutrophils % (auto) 71.4 % (37.0-80.0); Nucleated Red Blood Cells % 0.3 %; Red Blood Cells 4.51 10^6/uL (4.5-5.90); Red Cell Distribution Width 15.6 % (11.8-14.3); White Blood Cell 6.3 10^3/uL (4.4-10.8)
[2022-10-30 05:20] LABS: Albumin 3.6 g/dL (3.4-5.0); BUN/Creatinine Ratio 17.9 (10.0-20.0); Calcium 8.9 mg/dL (8.5-10.1); Potassium 3.5 mmol/L (3.5-5.1)
[2022-10-30 05:23] LABS: Bilirubin, Total 1.6 mg/dL (0.2-1.0)
[2022-10-30] MEDS ORDERED: FUROSEMIDE 20 MG/2 ML VIAL IV SCH (06:00)
[2022-10-30] MEDS: SPIRONOLACTONE 25 MG TAB PO SCH ×2 (06:59→18:10)
[2022-10-30] MEDS: ACCU-CHEK COMFORT CURVE STRIP VI SCH ×4 (07:00→22:45)
[2022-10-30] MEDS: InsuLIN REG 1unit/0.01ml Soln (100units/ml) SC SCH ×4 (07:00→22:00)
[2022-10-30] MEDS: ENOXAPARIN SOD 40 MG/0.4 ML SYRINGE SC SCH ×2 (10:00→10:22)
[2022-10-30] MEDS: CARVEDILOL 3.125 MG TAB PO SCH ×2 (10:00→22:44)
[2022-10-30] MEDS ORDERED: PANTOPRAZOLE 40 MG TAB PO SCH (10:00)
[2022-10-30] MEDS: SACUBITRIL-VALSARTAN 24mg/26mg TAB PO SCH ×2 (10:00→22:45)
[2022-10-30] MEDS: ASPirin 81 mg TAB PO SCH (10:18)
[2022-10-30 11:38] LABS: Urine Bacteria NONE SEEN /hpf (None Seen); Urine Blood Negative /uL (Negative); Urine Specific Gravity 1.015 (1.001-1.035); Urine WBC <1 /hpf (0 - 3)
[2022-10-30] MEDS: MORPHINE SULFATE INJ 2 MG/ml SYRG IV PRN ×2 (15:32→22:46)
[2022-10-30] MEDS: BUMETANIDE 2.5mg/10ml (0.25 mg/ml) INJ IV SCH (18:10)
[2022-10-30] MEDS: ATORVASTATIN 20 MG TAB PO SCH (22:45)
[2022-10-30] MEDS: POTASSIUM CHL 10 Meq TABLET PO SCH (22:45)
[2022-10-30 22:51] VITALS: BP 102/70
[2022-10-31 05:00] VITALS: BP 96/60
[2022-10-31] MEDS: SPIRONOLACTONE 25 MG TAB PO SCH (06:00)
[2022-10-31] MEDS: BUMETANIDE 2.5mg/10ml (0.25 mg/ml) INJ IV SCH (06:00)
[2022-10-31] MEDS: InsuLIN REG 1unit/0.01ml Soln (100units/ml) SC SCH ×2 (06:14→11:30)
[2022-10-31] MEDS: ACCU-CHEK COMFORT CURVE STRIP VI SCH ×2 (06:14→11:45)
[2022-10-31] MEDS ORDERED: EMPAGLIFLOZIN 10 MG TAB PO SCH (07:00)
[2022-10-31 07:11] LABS: Calcium 8.5 mg/dL (8.5-10.1); Potassium 3.7 mmol/L (3.5-5.1)
[2022-10-31 07:20] LABS: BUN/Creatinine Ratio 21.4 (10.0-20.0); Bilirubin, Total 1.2 mg/dL (0.2-1.0)
[2022-10-31 09:00] VITALS: BP 109/70
[2022-10-31] MEDS: ASPirin 81 mg TAB PO SCH (10:32)
[2022-10-31] MEDS: CARVEDILOL 3.125 MG TAB PO SCH (10:33)
[2022-10-31] MEDS: POTASSIUM CHL 10 Meq TABLET PO SCH (10:34)
[2022-10-31] MEDS: ENOXAPARIN SOD 40 MG/0.4 ML SYRINGE SC SCH (10:34)
[2022-10-31] MEDS: SACUBITRIL-VALSARTAN 24mg/26mg TAB PO SCH (10:40)
[2022-10-31 13:00] VITALS: BP 103/74
[2022-10-31 14:17] VITALS: BP 109/70
[2022-10-31 16:53] VITALS: BP 108/70
[2022-10-31] MEDS ORDERED: ENOXAPARIN SOD 40 MG/0.4 ML SYRINGE SC ONE (17:00)
[2022-11-02] MEDS ORDERED: ACETAMINOPHEN 325 MG TAB PO PRN (19:00)
[2022-11-02] MEDS ORDERED: NITROGLYCERIN 0.4 MG SL TAB SL SCH (19:00)
[2022-11-02] MEDS ORDERED: MORPHINE SULFATE 4 MG/ML SYR/VIAL IV PRN (19:00)
[2022-11-02] MEDS ORDERED: NITROGLYCERIN 0.4 MG SL TAB SL PRN (19:00)
[2022-11-02] MEDS ORDERED: ONDANSETRON HCL 4 MG/2 ML VIAL IV PRN (19:00)
[2022-11-02] MEDS ORDERED: CARVEDILOL 3.125 MG TAB PO SCH (22:00)
[2022-11-02] MEDS ORDERED: IVABRADINE 7.5 MG PO SCH (22:00)
[2022-11-02] MEDS ORDERED: ATORVASTATIN 20 MG TAB PO SCH ×2 (22:00)
[2022-11-02] MEDS ORDERED: SPIRONOLACTONE 25 MG TAB PO SCH (22:00)
[2022-11-02] MEDS ORDERED: MEXILETINE HYDROCHLORIDE 150 MG CAP PO SCH (22:00)
[2022-11-02] MEDS ORDERED: SACUBITRIL-VALSARTAN 24mg/26mg TAB PO SCH (22:00)
[2022-11-03] MEDS ORDERED: BUMETANIDE 2.5mg/10ml (0.25 mg/ml) INJ IV SCH (06:00)
[2022-11-03 07:06] LABS: Basophils # (auto) 0 10 ^3/uL (0-0.2); Basophils % (auto) 0.7 % (0.0-2.0); Eosinophils # (auto) 0.2 10 ^3/uL (0-0.8); Eosinophils % (auto) 3.5 % (0.0-7.0); Hematocrit 41.7 % (41.0-53.0); Hemoglobin 14.1 g/dL (13.5-17.5); Lymphocytes # (auto) 1.1 10 ^3/uL (0.4-5.4); Lymphocytes % (auto) 17.4 % (10.0-50.0); Mean Corpuscular Hemoglobin 32.4 pg (28.0-32.0); Mean Corpuscular Hgb Conc. 33.8 g/dL (32.0-36.0); Mean Corpuscular Volume 95.7 fL (80.0-100.0); Monocytes # (auto) 0.7 10 ^3/uL (0-1.3); Monocytes % (auto) 11.8 % (0.0-12.0); Neutrophils # (auto) 4.2 10 ^3/uL (1.6-8.6); Neutrophils % (auto) 66.6 % (37.0-80.0); Nucleated Red Blood Cells % 0.2 %; Red Blood Cells 4.36 10^6/uL (4.5-5.90); Red Cell Distribution Width 15.3 % (11.8-14.3); White Blood Cell 6.3 10^3/uL (4.4-10.8)
[2022-11-03 07:25] LABS: Potassium 4.1 mmol/L (3.5-5.1)
[2022-11-03 07:30] LABS: Albumin 3.5 g/dL (3.4-5.0); BUN/Creatinine Ratio 20.3 (10.0-20.0); Bilirubin, Total 1.9 mg/dL (0.2-1.0); Calcium 8.8 mg/dL (8.5-10.1); Total Protein 6.1 g/dL (6.4-8.2)
[2022-11-03] MEDS ORDERED: ASPirin 81 mg TAB PO SCH (10:00)
[2022-11-03] MEDS ORDERED: DOCUSATE SOD 100 MG CAP PO SCH (10:00)
[2022-11-03] MEDS ORDERED: VERICIGUAT PO SCH (10:00)
[2022-11-03] MEDS ORDERED: PATIENTS OWN MEDICATION (Dapagliflozin Propanediol (Farxiga) 1 TAB) PO SCH (10:00)
[2022-11-03] MEDS ORDERED: PATIENTS OWN MEDICATION (Cholecalciferol (Vitamin D) 5,000 UNIT) PO SCH (10:00)
[2022-11-03] MEDS ORDERED: PATIENTS OWN MEDICATION (Potassium Chloride (Potassium Chloride Cr) 20 MEQ) PO SCH (10:00)
== END 2022-10-31 17:00 | disposition home or self-care (01) | DRG 194 ==
LOC: ER 16:08 → TELE 21:38 → TELE-CENTR 10-30 21:27
PROVIDERS: ADMIT Nurse Practitioner; ATTEND Nurse Practitioner Acute Care
DX: I13.0 Hypertensive heart and chronic kidney disease with heart failure and stage 1 through stage 4 chronic kidney disease, or unspecified chronic kidney disease (principal); I42.8 Other cardiomyopathies; E11.22 Type 2 diabetes mellitus with diabetic chronic kidney disease; I50.23 Acute on chronic systolic (congestive) heart failure; E78.5 Hyperlipidemia, unspecified; I25.119 Atherosclerotic heart disease of native coronary artery with unspecified angina pectoris; N18.9 Chronic kidney disease, unspecified; Z20.822 Contact with and (suspected) exposure to COVID-19; Z87.891 Personal history of nicotine dependence; Z79.84 Long term (current) use of oral hypoglycemic drugs; Z79.899 Other long term (current) drug therapy; Z82.3 Family history of stroke; Z83.3 Family history of diabetes mellitus; Z82.49 Family history of ischemic heart disease and other diseases of the circulatory system; Z91.013 Allergy to seafood; Z91.199 Patient's noncompliance with other medical treatment and regimen due to unspecified reason; Z95.810 Presence of automatic (implantable) cardiac defibrillator
CPT/HCPCS: 36415; 71045; 80053; 81001; 82962; 83880; 84484; 85025; 87426; 93005; 96372; 96374; 96375; 96376; G0378; J2405

== ENCOUNTER 2022-11-02 10:24 | Inpatient (IN) | payer MEDICAID ==
[~2022-11-02] VITALS: Ht 182.9 cm; Wt 100.2 kg
[2022-11-02 10:59] LABS: Basophils # (auto) 0.1 10 ^3/uL (0-0.2); Eosinophils # (auto) 0.1 10 ^3/uL (0-0.8); Eosinophils % (auto) 1.1 % (0.0-7.0); Hematocrit 45.5 % (41.0-53.0); Hemoglobin 15.1 g/dL (13.5-17.5); Lymphocytes % (auto) 14.1 % (10.0-50.0); Mean Corpuscular Hemoglobin 31.7 pg (28.0-32.0); Mean Corpuscular Hgb Conc. 33.3 g/dL (32.0-36.0); Mean Corpuscular Volume 95.3 fL (80.0-100.0); Monocytes # (auto) 0.8 10 ^3/uL (0-1.3); Monocytes % (auto) 11.5 % (0.0-12.0); Neutrophils # (auto) 5.3 10 ^3/uL (1.6-8.6); Neutrophils % (auto) 72.3 % (37.0-80.0); Nucleated Red Blood Cells % 0.1 %; Red Blood Cells 4.77 10^6/uL (4.5-5.90); Red Cell Distribution Width 15.6 % (11.8-14.3); White Blood Cell 7.3 10^3/uL (4.4-10.8)
[2022-11-02 11:24] LABS: Potassium 4.2 mmol/L (3.5-5.1)
[2022-11-02 11:38] LABS: Albumin 3.7 g/dL (3.4-5.0); BUN/Creatinine Ratio 22.6 (10.0-20.0); Bilirubin, Total 1.5 mg/dL (0.2-1.0); Calcium 8.8 mg/dL (8.5-10.1); Total Protein 6.6 g/dL (6.4-8.2)
[2022-11-02] MEDS ORDERED: NITROGLYCERIN 0.4 MG SL TAB SL ONE (14:45)
[2022-11-02] MEDS ORDERED: FUROSEMIDE 40 MG/4 ML VIAL IV ONE (14:45)
[2022-11-02 15:36] LABS: Urine Bacteria NONE SEEN /hpf (None Seen); Urine Blood TRACE /uL (Negative); Urine Hyaline Cast FEW /lpf (0 - 2); Urine WBC 1 /hpf (0 - 3)
[2022-11-02] MEDS ORDERED: ONDANSETRON HCL 4 MG/2 ML VIAL IV ONE (18:45)
[2022-11-02] MEDS ORDERED: MORPHINE SULFATE INJ 2 MG/ml SYRG IV ONE (18:45)
[2022-11-02] MEDS ORDERED: DEXTROSE (50%) 50ML SYRG IV PRN (19:15)
[2022-11-02] MEDS ORDERED: IOHEXOL 350 MG/ML 100ML IJ ONE (19:28)
[2022-11-02] MEDS ORDERED: ATORVASTATIN 20 MG TAB PO SCH (22:00)
[2022-11-02] MEDS: InsuLIN REG 1unit/0.01ml Soln (100units/ml) SC SCH (22:00)
[2022-11-02] MEDS: ACCU-CHEK COMFORT CURVE STRIP VI SCH (22:00)
[2022-11-02] MEDS: IVABRADINE 5 MG TAB PO SCH (22:00)
[2022-11-02] MEDS: ATORVASTATIN 20 MG TAB PO SCH (23:32)
[2022-11-02] MEDS: CARVEDILOL 3.125 MG TAB PO SCH (23:33)
[2022-11-02] MEDS: SPIRONOLACTONE 25 MG TAB PO SCH (23:33)
[2022-11-02] MEDS: SACUBITRIL-VALSARTAN 24mg/26mg TAB PO SCH (23:33)
[2022-11-02] MEDS: MEXILETINE HYDROCHLORIDE 150 MG CAP PO SCH (23:33)
[2022-11-02] MEDS: ENOXAPARIN SOD 100 MG/1 ML SYRINGE SC SCH (23:39)
[2022-11-03] MEDS: HYDROcodone-ACET 5/325MG TAB PO PRN ×2 (00:58→16:37)
[2022-11-03] MEDS: ONDANSETRON HCL 4 MG/2 ML VIAL IV PRN (02:32)
[2022-11-03] MEDS: InsuLIN REG 1unit/0.01ml Soln (100units/ml) SC SCH ×4 (06:24→22:00)
[2022-11-03] MEDS: ACCU-CHEK COMFORT CURVE STRIP VI SCH ×4 (06:24→22:46)
[2022-11-03] MEDS: MEXILETINE HYDROCHLORIDE 150 MG CAP PO SCH ×3 (06:44→22:00)
[2022-11-03] MEDS: BUMETANIDE 2.5mg/10ml (0.25 mg/ml) INJ IV SCH ×2 (06:45→18:00)
[2022-11-03] MEDS: ENOXAPARIN SOD 100 MG/1 ML SYRINGE SC SCH ×2 (10:00→22:00)
[2022-11-03] MEDS: VERICIGUAT 2.5 MG PO SCH (10:00)
[2022-11-03] MEDS: CARVEDILOL 3.125 MG TAB PO SCH ×2 (10:00→22:00)
[2022-11-03] MEDS: EMPAGLIFLOZIN 10 MG TAB PO SCH (10:00)
[2022-11-03] MEDS: ASPirin 81 mg TAB PO SCH (11:37)
[2022-11-03] MEDS: SPIRONOLACTONE 25 MG TAB PO SCH ×2 (11:38→22:00)
[2022-11-03] MEDS: IVABRADINE 5 MG TAB PO SCH ×3 (11:40→23:57)
[2022-11-03] MEDS: CHOLECALCIFEROL (VITD3) 1,000UNIT=25mCg TAB PO SCH (11:41)
[2022-11-03] MEDS: SACUBITRIL-VALSARTAN 24mg/26mg TAB PO SCH ×2 (11:44→22:00)
[2022-11-03 16:21] VITALS: BP 102/71
[2022-11-03 17:00] VITALS: BP 102/71
[2022-11-03 22:00] VITALS: BP 100/70
[2022-11-03] MEDS: ATORVASTATIN 20 MG TAB PO SCH ×2 (22:00→23:52)
[2022-11-04] MEDS: BUMETANIDE 2.5mg/10ml (0.25 mg/ml) INJ IV SCH ×2 (05:55→17:25)
[2022-11-04] MEDS: ACCU-CHEK COMFORT CURVE STRIP VI SCH ×4 (05:56→22:26)
[2022-11-04] MEDS: InsuLIN REG 1unit/0.01ml Soln (100units/ml) SC SCH ×4 (05:56→22:00)
[2022-11-04] MEDS: MEXILETINE HYDROCHLORIDE 150 MG CAP PO SCH ×3 (05:56→22:00)
[2022-11-04 06:02] VITALS: BP 99/62
[2022-11-04 08:00] VITALS: BP 117/71
[2022-11-04] MEDS: VERICIGUAT 2.5 MG PO SCH (10:00)
[2022-11-04] MEDS: ENOXAPARIN SOD 100 MG/1 ML SYRINGE SC SCH ×2 (10:00→22:00)
[2022-11-04] MEDS: IVABRADINE 5 MG TAB PO SCH ×2 (10:00→22:23)
[2022-11-04] MEDS: CARVEDILOL 3.125 MG TAB PO SCH ×2 (10:00→22:24)
[2022-11-04] MEDS: EMPAGLIFLOZIN 10 MG TAB PO SCH (10:00)
[2022-11-04] MEDS: ASPirin 81 mg TAB PO SCH (10:39)
[2022-11-04] MEDS: SPIRONOLACTONE 25 MG TAB PO SCH ×2 (10:39→22:24)
[2022-11-04] MEDS: SACUBITRIL-VALSARTAN 24mg/26mg TAB PO SCH ×2 (10:39→22:00)
[2022-11-04] MEDS: CHOLECALCIFEROL (VITD3) 1,000UNIT=25mCg TAB PO SCH (10:41)
[2022-11-04 12:00] VITALS: BP 99/69
[2022-11-04 16:00] VITALS: BP 104/69
[2022-11-04] MEDS: ONDANSETRON HCL 4 MG/2 ML VIAL IV PRN (17:25)
[2022-11-04 22:00] VITALS: BP 103/72
[2022-11-04] MEDS: ATORVASTATIN 20 MG TAB PO SCH (22:23)
[2022-11-04] MEDS ORDERED: ACETAMINOPHEN 325 MG TAB PO PRN (22:30)
[2022-11-05] MEDS: diphenhdrAMINE HCL 25 MG CAP PO PRN ×2 (00:06→22:28)
[2022-11-05 05:00] VITALS: BP 118/69
[2022-11-05] MEDS: MEXILETINE HYDROCHLORIDE 150 MG CAP PO SCH ×3 (06:00→22:15)
[2022-11-05] MEDS: InsuLIN REG 1unit/0.01ml Soln (100units/ml) SC SCH ×4 (06:51→22:19)
[2022-11-05] MEDS: BUMETANIDE 2.5mg/10ml (0.25 mg/ml) INJ IV SCH ×2 (06:51→18:40)
[2022-11-05] MEDS: ACCU-CHEK COMFORT CURVE STRIP VI SCH ×4 (06:51→22:16)
[2022-11-05 08:00] VITALS: BP 117/63
[2022-11-05] MEDS: CARVEDILOL 3.125 MG TAB PO SCH ×2 (10:00→22:00)
[2022-11-05] MEDS: EMPAGLIFLOZIN 10 MG TAB PO SCH (10:00)
[2022-11-05] MEDS: IVABRADINE 5 MG TAB PO SCH ×2 (10:00→22:00)
[2022-11-05] MEDS: VERICIGUAT 2.5 MG PO SCH (10:00)
[2022-11-05] MEDS: ENOXAPARIN SOD 100 MG/1 ML SYRINGE SC SCH ×2 (10:00→22:00)
[2022-11-05] MEDS: ASPirin 81 mg TAB PO SCH (10:36)
[2022-11-05] MEDS: SPIRONOLACTONE 25 MG TAB PO SCH ×2 (10:36→22:13)
[2022-11-05] MEDS: CHOLECALCIFEROL (VITD3) 1,000UNIT=25mCg TAB PO SCH (10:37)
[2022-11-05] MEDS: SACUBITRIL-VALSARTAN 24mg/26mg TAB PO SCH ×2 (10:37→22:15)
[2022-11-05 12:00] VITALS: BP 94/69
[2022-11-05 16:00] VITALS: BP 109/73
[2022-11-05 22:00] VITALS: BP_SYST 103; BP_SYST 116; BP_DIAS 52; BP_DIAS 60
[2022-11-05] MEDS: ATORVASTATIN 20 MG TAB PO SCH (22:15)
[2022-11-06 05:00] VITALS: BP 23/62
[2022-11-06] MEDS: BUMETANIDE 2.5mg/10ml (0.25 mg/ml) INJ IV SCH ×2 (06:46→18:07)
[2022-11-06] MEDS: InsuLIN REG 1unit/0.01ml Soln (100units/ml) SC SCH ×4 (06:46→22:29)
[2022-11-06] MEDS: ACCU-CHEK COMFORT CURVE STRIP VI SCH ×4 (06:46→22:09)
[2022-11-06] MEDS: MEXILETINE HYDROCHLORIDE 150 MG CAP PO SCH ×3 (06:46→22:26)
[2022-11-06 08:33] VITALS: BP 113/57
[2022-11-06] MEDS: CHOLECALCIFEROL (VITD3) 1,000UNIT=25mCg TAB PO SCH (09:04)
[2022-11-06] MEDS: SPIRONOLACTONE 25 MG TAB PO SCH ×2 (09:04→22:26)
[2022-11-06] MEDS: ASPirin 81 mg TAB PO SCH (09:04)
[2022-11-06] MEDS: SACUBITRIL-VALSARTAN 24mg/26mg TAB PO SCH ×2 (09:04→22:26)
[2022-11-06] MEDS: CARVEDILOL 3.125 MG TAB PO SCH ×2 (09:05→22:26)
[2022-11-06] MEDS: VERICIGUAT 2.5 MG PO SCH (09:06)
[2022-11-06] MEDS: EMPAGLIFLOZIN 10 MG TAB PO SCH (09:06)
[2022-11-06] MEDS: ENOXAPARIN SOD 100 MG/1 ML SYRINGE SC SCH ×2 (09:07→22:00)
[2022-11-06] MEDS: IVABRADINE 5 MG TAB PO SCH ×2 (10:31→22:26)
[2022-11-06] MEDS ORDERED: MAALOX PLUS or MAALOX 30 ML PO ONE (10:45)
[2022-11-06 13:00] VITALS: BP 105/75
[2022-11-06] MEDS: diphenhdrAMINE HCL 25 MG CAP PO PRN (16:29)
[2022-11-06 16:39] VITALS: BP 107/59
[2022-11-06 22:02] VITALS: BP 106/71
[2022-11-06] MEDS: ATORVASTATIN 20 MG TAB PO SCH (22:26)
[2022-11-07] MEDS: ONDANSETRON HCL 4 MG/2 ML VIAL IV PRN (02:41)
[2022-11-07 05:00] VITALS: BP 104/71
[2022-11-07] MEDS: MEXILETINE HYDROCHLORIDE 150 MG CAP PO SCH ×2 (06:00→14:00)
[2022-11-07] MEDS: ACCU-CHEK COMFORT CURVE STRIP VI SCH ×3 (06:08→17:00)
[2022-11-07] MEDS: InsuLIN REG 1unit/0.01ml Soln (100units/ml) SC SCH ×3 (06:08→17:00)
[2022-11-07] MEDS: BUMETANIDE 2.5mg/10ml (0.25 mg/ml) INJ IV SCH (06:24)
[2022-11-07 09:00] VITALS: BP 128/89
[2022-11-07] MEDS: SPIRONOLACTONE 25 MG TAB PO SCH (09:20)
[2022-11-07] MEDS: SACUBITRIL-VALSARTAN 24mg/26mg TAB PO SCH (09:20)
[2022-11-07] MEDS: CARVEDILOL 3.125 MG TAB PO SCH (09:21)
[2022-11-07] MEDS: IVABRADINE 5 MG TAB PO SCH (09:22)
[2022-11-07 09:47] VITALS: BP 128/89
[2022-11-07] MEDS: VERICIGUAT 2.5 MG PO SCH (09:59)
[2022-11-07] MEDS: EMPAGLIFLOZIN 10 MG TAB PO SCH (09:59)
[2022-11-07] MEDS: ENOXAPARIN SOD 100 MG/1 ML SYRINGE SC SCH (09:59)
[2022-11-07] MEDS: CHOLECALCIFEROL (VITD3) 1,000UNIT=25mCg TAB PO SCH (10:00)
[2022-11-07] MEDS: ASPirin 81 mg TAB PO SCH (10:03)
[2022-11-07 13:00] VITALS: BP 83/48
[2022-11-07 13:05] VITALS: BP 108/62
[2022-11-07] MEDS ORDERED: PANT40TA2 PO (13:41)
[2022-11-07 17:00] VITALS: BP 129/89
== END 2022-11-07 17:15 | disposition home or self-care (01) | DRG 194 ==
LOC: ER 10:24 → EDBD 10:24 → TELE 19:20 → TELE-CENTR 11-03 16:49
PROVIDERS: ADMIT Nurse Practitioner Family; ATTEND Internal Medicine
DX: I11.0 Hypertensive heart disease with heart failure (principal); Z76.82 Awaiting organ transplant status; I24.9 Acute ischemic heart disease, unspecified; I42.9 Cardiomyopathy, unspecified; I50.43 Acute on chronic combined systolic (congestive) and diastolic (congestive) heart failure; E78.5 Hyperlipidemia, unspecified; E11.9 Type 2 diabetes mellitus without complications; R06.03 Acute respiratory distress; I25.10 Atherosclerotic heart disease of native coronary artery without angina pectoris; Z82.49 Family history of ischemic heart disease and other diseases of the circulatory system; Z83.3 Family history of diabetes mellitus; Z87.891 Personal history of nicotine dependence; Z91.013 Allergy to seafood; Z95.810 Presence of automatic (implantable) cardiac defibrillator; Z80.3 Family history of malignant neoplasm of breast; Z82.3 Family history of stroke; I25.2 Old myocardial infarction
CPT/HCPCS: 36415; 71045; 71260; 74177; 76700; 78226; 80053; 81001; 82962; 83880; 84484; 85025; 85379; 87081; 93005; 96374; 96375; G0378; J1815; J2405

== ENCOUNTER → 2022-11-21 | Emergency (ER) | payer MEDICAID ==
[~2022-11-21] VITALS: Ht 182.9 cm; Wt 93.1 kg
[~2022-11-21] MED LIST changes: +FUROSEMIDE 40 MG/4 ML VIAL IV ONE; +PANT40TA2 PO
[2022-11-21 10:22] VITALS: BP 134/91
[2022-11-21 10:53] LABS: Basophils # (auto) 0 10 ^3/uL (0-0.2); Basophils % (auto) 0.8 % (0.0-2.0); Eosinophils # (auto) 0.2 10 ^3/uL (0-0.8); Eosinophils % (auto) 4.3 % (0.0-7.0); Hematocrit 48.3 % (41.0-53.0); Hemoglobin 16.3 g/dL (13.5-17.5); Lymphocytes # (auto) 0.3 10 ^3/uL (0.4-5.4); Lymphocytes % (auto) 6.2 % (10.0-50.0); Mean Corpuscular Hemoglobin 31.8 pg (28.0-32.0); Mean Corpuscular Hgb Conc. 33.6 g/dL (32.0-36.0); Mean Corpuscular Volume 94.5 fL (80.0-100.0); Monocytes # (auto) 0.2 10 ^3/uL (0-1.3); Monocytes % (auto) 3.7 % (0.0-12.0); Neutrophils # (auto) 4.3 10 ^3/uL (1.6-8.6); Nucleated Red Blood Cells % 0.2 %; Red Blood Cells 5.11 10^6/uL (4.5-5.90); Red Cell Distribution Width 15.2 % (11.8-14.3)
[2022-11-21 11:26] LABS: Potassium 4.5 mmol/L (3.5-5.1)
[2022-11-21 11:29] LABS: Albumin 3.9 g/dL (3.4-5.0); BUN/Creatinine Ratio 23.8 (10.0-20.0)
[2022-11-21 11:31] LABS: Bilirubin, Total 2.1 mg/dL (0.2-1.0); Total Protein 7.4 g/dL (6.4-8.2)
== END | disposition left against medical advice (07) ==
LOC: ER 10:12
DX: I11.0 Hypertensive heart disease with heart failure (principal); I50.9 Heart failure, unspecified; E11.9 Type 2 diabetes mellitus without complications; I24.9 Acute ischemic heart disease, unspecified; E78.5 Hyperlipidemia, unspecified; Z87.891 Personal history of nicotine dependence
CPT/HCPCS: 36415; 71045; 80053; 82962; 83880; 84484; 85025; 93005

== ENCOUNTER 2023-03-21 08:35 | Inpatient (IN) | payer MEDICAID ==
[~2023-03-21] VITALS: Ht 185.4 cm; Wt 92.3 kg
[~2023-03-21 08:35] MED LIST changes: -FUROSEMIDE 40 MG/4 ML VIAL IV ONE
[2023-03-21 09:28] LABS: Basophils # (auto) 0.1 10 ^3/uL (0-0.2); Basophils % (auto) 3.1 % (0.0-2.0); Eosinophils # (auto) 0.1 10 ^3/uL (0-0.8); Eosinophils % (auto) 2.7 % (0.0-7.0); Hematocrit 47.5 % (41.0-53.0); Hemoglobin 15.9 g/dL (13.5-17.5); Lymphocytes # (auto) 0.7 10 ^3/uL (0.4-5.4); Lymphocytes % (auto) 14.4 % (10.0-50.0); Mean Corpuscular Hemoglobin 31.4 pg (28.0-32.0); Mean Corpuscular Hgb Conc. 33.5 g/dL (32.0-36.0); Mean Corpuscular Volume 93.8 fL (80.0-100.0); Monocytes # (auto) 0.4 10 ^3/uL (0-1.3); Monocytes % (auto) 9.1 % (0.0-12.0); Neutrophils # (auto) 3.4 10 ^3/uL (1.6-8.6); Neutrophils % (auto) 70.7 % (37.0-80.0); Nucleated Red Blood Cells % 0.3 %; Red Blood Cells 5.06 10^6/uL (4.5-5.90); Red Cell Distribution Width 17.3 % (11.8-14.3); White Blood Cell 4.9 10^3/uL (4.4-10.8)
[2023-03-21] MEDS ORDERED: MORPHINE SULFATE 4 MG/ML SYR/VIAL IV ONE (09:45)
[2023-03-21] MEDS ORDERED: ONDANSETRON ODT 4 MG TAB PO ONE (09:45)
[2023-03-21] MEDS ORDERED: FUROSEMIDE 20 MG/2 ML VIAL IV ONE (09:45)
[2023-03-21 09:49] LABS: INR 1.25 (0.9-1.15); Prothrombin Time 12.9 sec (9.3-11.8)
[2023-03-21 10:07] LABS: Alanine Aminotransferase 17 U/L (7-40); Albumin 4.4 g/dL (3.2-4.8); Alkaline Phosphatase 122 U/L (46-116); Anion Gap 5.7 (5-15); Aspartate Aminotransferase 14 U/L (13-40); BUN/Creatinine Ratio 14.7 (10.0-20.0); Blood Urea Nitrogen 16 mg/dL (9-23); Carbon Dioxide 29.3 mmol/L (20-30); Chloride 102 mmol/L (98-107); Glucose 140 mg/dL (74-106); Magnesium 2.1 mg/dL (1.6-2.6); Sodium 137 mmol/L (136-145)
[2023-03-21 10:08] LABS: Bilirubin, Total 1.4 mg/dL (0.2-1.0); Total Protein 6.9 g/dL (5.7-8.2)
[2023-03-21 10:30] VITALS: PULSE 89; RESP 15; O2SAT 95
[2023-03-21 14:23] LABS: Urine WBC None Seen /hpf (0 - 3)
[2023-03-21 14:46] LABS: Urine Bacteria NONE SEEN /hpf (None Seen); Urine Blood Negative /uL (Negative); Urine Clarity Clear (Clear); Urine Color Colorless (Yellow); Urine Protein, UAD Negative (Negative); Urine Specific Gravity 1.005 (1.001-1.035); Urine Urobilinogen Normal (Negative)
[2023-03-21] MEDS: MEXILETINE HYDROCHLORIDE 150 MG CAP PO SCH ×2 (16:19→22:32)
[2023-03-21] MEDS ORDERED: DOCUSATE SOD 100 MG CAP PO PRN (16:30)
[2023-03-21] MEDS ORDERED: ONDANSETRON HCL 4 MG/2 ML VIAL IV PRN (16:30)
[2023-03-21] MEDS: BUMETANIDE 2.5mg/10ml (0.25 mg/ml) INJ IV SCH (19:00)
[2023-03-21 19:30] VITALS: PULSE 101; RESP 20; O2SAT 97
[2023-03-21] MEDS ORDERED: MORPHINE SULFATE INJ 2 MG/ml SYRG IV PRN (20:00)
[2023-03-21] MEDS: IVABRADINE 5 MG TAB PO SCH (22:31)
[2023-03-21] MEDS: ATORVASTATIN 20 MG TAB PO SCH (22:32)
[2023-03-21] MEDS: SPIRONOLACTONE 25 MG TAB PO SCH (22:32)
[2023-03-21] MEDS: CARVEDILOL 3.125 MG TAB PO SCH (22:32)
[2023-03-21] MEDS: SACUBITRIL-VALSARTAN 24mg/26mg TAB PO SCH (22:32)
[2023-03-22] MEDS: MEXILETINE HYDROCHLORIDE 150 MG CAP PO SCH ×3 (06:00→22:00)
[2023-03-22 06:28] LABS: Basophils # (auto) 0.1 10 ^3/uL (0-0.2); Eosinophils # (auto) 0.1 10 ^3/uL (0-0.8); Eosinophils % (auto) 2.6 % (0.0-7.0); Hemoglobin 15.8 g/dL (13.5-17.5); Lymphocytes # (auto) 0.8 10 ^3/uL (0.4-5.4); Lymphocytes % (auto) 14.6 % (10.0-50.0); Mean Corpuscular Hemoglobin 31.6 pg (28.0-32.0); Mean Corpuscular Hgb Conc. 33.5 g/dL (32.0-36.0); Mean Corpuscular Volume 94.2 fL (80.0-100.0); Monocytes # (auto) 0.6 10 ^3/uL (0-1.3); Neutrophils # (auto) 3.9 10 ^3/uL (1.6-8.6); Neutrophils % (auto) 70.8 % (37.0-80.0); Nucleated Red Blood Cells % 0.1 %; Red Blood Cells 4.99 10^6/uL (4.5-5.90); Red Cell Distribution Width 17.6 % (11.8-14.3); White Blood Cell 5.5 10^3/uL (4.4-10.8)
[2023-03-22 06:42] LABS: Alanine Aminotransferase 17 U/L (7-40); Anion Gap 5.9 (5-15); BUN/Creatinine Ratio 12.7 (10.0-20.0); Blood Urea Nitrogen 15 mg/dL (9-23); Calcium 9.4 mg/dL (8.7-10.4); Carbon Dioxide 27.1 mmol/L (20-30); Chloride 101 mmol/L (98-107); Glucose 112 mg/dL (74-106); Potassium 3.9 mmol/L (3.5-5.1); Sodium 134 mmol/L (136-145)
[2023-03-22 06:43] LABS: Albumin 4.3 g/dL (3.2-4.8); Aspartate Aminotransferase 10 U/L (13-40)
[2023-03-22 06:44] LABS: Bilirubin, Total 2.1 mg/dL (0.2-1.0); Total Protein 6.8 g/dL (5.7-8.2)
[2023-03-22 06:58] LABS: Alkaline Phosphatase 120 U/L (46-116)
[2023-03-22] MEDS: BUMETANIDE 2.5mg/10ml (0.25 mg/ml) INJ IV SCH ×2 (07:42→18:15)
[2023-03-22] MEDS ORDERED: metOLazone 5 MG TAB PO ONE (08:15)
[2023-03-22 09:00] VITALS: BP 111/75; PULSE 69; RESP 18; TEMP 98; O2SAT 100
[2023-03-22] MEDS: IVABRADINE 5 MG TAB PO SCH ×2 (10:00→21:57)
[2023-03-22] MEDS: VERICIGUAT PO SCH (10:00)
[2023-03-22] MEDS: SPIRONOLACTONE 25 MG TAB PO SCH ×2 (10:43→22:08)
[2023-03-22] MEDS: ASPirin 81 mg TAB PO SCH (10:43)
[2023-03-22] MEDS: CARVEDILOL 3.125 MG TAB PO SCH ×2 (10:44→21:58)
[2023-03-22] MEDS: EMPAGLIFLOZIN 10 MG TAB PO SCH (10:44)
[2023-03-22] MEDS: SACUBITRIL-VALSARTAN 24mg/26mg TAB PO SCH ×2 (10:44→21:57)
[2023-03-22] MEDS: POTASSIUM CHL 20 Meq TABLET PO SCH (10:44)
[2023-03-22] MEDS: CHOLECALCIFEROL (VITD3) 2,000 UNIT CAP/TAB PO SCH (10:45)
[2023-03-22] MEDS: PANTOPRAZOLE 40 MG TAB PO SCH (10:45)
[2023-03-22] MEDS ORDERED: PANT40T PO (10:53)
[2023-03-22 13:14] VITALS: BP 90/67; PULSE 74; RESP 16; TEMP 98.1; O2SAT 99
[2023-03-22 15:00] VITALS: PULSE 77; RESP 16; O2SAT 94
[2023-03-22] MEDS ORDERED: ADENOSINE 6 MG/2 ML INJ IV ONE ×2 (16:00)
[2023-03-22 17:30] VITALS: BP 92/66; PULSE 78; RESP 18; TEMP 98.3; O2SAT 98
[2023-03-22 20:00] VITALS: PULSE 76
[2023-03-22] MEDS: ATORVASTATIN 20 MG TAB PO SCH (21:58)
[2023-03-22 22:00] VITALS: BP 100/68; PULSE 79; RESP 19; TEMP 97.6; O2SAT 99
[2023-03-23] VITALS (7 sets, daily range): BP systolic 84–101; BP diastolic 58–75; PULSE 64–77; RESP 16–19; TEMP 97.5–98.9; O2SAT 94–100
[2023-03-23] MEDS: MEXILETINE HYDROCHLORIDE 150 MG CAP PO SCH ×3 (06:00→22:00)
[2023-03-23] MEDS: BUMETANIDE 2.5mg/10ml (0.25 mg/ml) INJ IV SCH ×2 (06:34→18:02)
[2023-03-23] MEDS ORDERED: SIMV10TA20 PO (09:12)
[2023-03-23] MEDS ORDERED: CHOL1TAB42 PO (09:12)
[2023-03-23] MEDS ORDERED: metOLazone 5 MG TAB PO ONE (09:45)
[2023-03-23] MEDS: VERICIGUAT PO SCH (10:00)
[2023-03-23] MEDS: SACUBITRIL-VALSARTAN 24mg/26mg TAB PO SCH ×2 (11:05→22:00)
[2023-03-23] MEDS: CHOLECALCIFEROL (VITD3) 2,000 UNIT CAP/TAB PO SCH (11:06)
[2023-03-23] MEDS: POTASSIUM CHL 20 Meq TABLET PO SCH (11:06)
[2023-03-23] MEDS: CARVEDILOL 3.125 MG TAB PO SCH ×2 (11:06→22:00)
[2023-03-23] MEDS: ASPirin 81 mg TAB PO SCH (11:06)
[2023-03-23] MEDS: SPIRONOLACTONE 25 MG TAB PO SCH ×2 (11:06→22:00)
[2023-03-23] MEDS: EMPAGLIFLOZIN 10 MG TAB PO SCH (11:07)
[2023-03-23] MEDS: IVABRADINE 5 MG TAB PO SCH ×2 (11:07→22:00)
[2023-03-23] MEDS: PANTOPRAZOLE 40 MG TAB PO SCH (11:13)
[2023-03-23] MEDS: ATORVASTATIN 20 MG TAB PO SCH (22:00)
[2023-03-23] MEDS ORDERED: SODIUM CHLORIDE 0.9% 500 ML IV ONE (23:45)
[2023-03-24 05:00] VITALS: BP 99/68; PULSE 69; RESP 18; TEMP 97.5; O2SAT 100
[2023-03-24] MEDS: MEXILETINE HYDROCHLORIDE 150 MG CAP PO SCH (06:00)
[2023-03-24] MEDS: BUMETANIDE 2.5mg/10ml (0.25 mg/ml) INJ IV SCH (06:00)
== END 2023-03-24 07:56 | disposition home or self-care (01) | DRG 194 ==
LOC: EDBD 08:35 → ER 08:35 → TELE 16:27 → TELE-WESTW 03-22 08:36
PROVIDERS: ADMIT Nurse Practitioner Family; ATTEND Family Medicine
DX: I11.0 Hypertensive heart disease with heart failure (principal); I42.8 Other cardiomyopathies; I50.23 Acute on chronic systolic (congestive) heart failure; E11.65 Type 2 diabetes mellitus with hyperglycemia; I25.10 Atherosclerotic heart disease of native coronary artery without angina pectoris; E78.00 Pure hypercholesterolemia, unspecified; I16.0 Hypertensive urgency; I34.0 Nonrheumatic mitral (valve) insufficiency; Z91.148 Patient's other noncompliance with medication regimen for other reason; Z95.5 Presence of coronary angioplasty implant and graft; Z95.810 Presence of automatic (implantable) cardiac defibrillator; Z91.013 Allergy to seafood; Z87.891 Personal history of nicotine dependence; Z83.3 Family history of diabetes mellitus; Z82.49 Family history of ischemic heart disease and other diseases of the circulatory system; Z82.3 Family history of stroke
CPT/HCPCS: 36415; 71045; 80053; 81001; 83690; 83735; 83880; 84484; 85025; 85610; 85730; 87081; 93005; 93306; 96374; 96375; G0378; J2405; Q0162

== ENCOUNTER 2023-04-04 09:13 | Inpatient (IN) | payer MEDICAID ==
[~2023-04-04] VITALS: Ht 182.9 cm; Wt 90.3 kg
[~2023-04-04 09:13] MED LIST changes: +CHOL1TAB42 PO; +PANT40T PO; +SIMV10TA20 PO
[2023-04-04 09:39] LABS: Basophils # (auto) 0.1 10 ^3/uL (0-0.2); Basophils % (auto) 0.9 % (0.0-2.0); Eosinophils # (auto) 0.1 10 ^3/uL (0-0.8); Eosinophils % (auto) 2.2 % (0.0-7.0); Hematocrit 48.4 % (41.0-53.0); Hemoglobin 16.5 g/dL (13.5-17.5); Lymphocytes # (auto) 0.8 10 ^3/uL (0.4-5.4); Lymphocytes % (auto) 13.6 % (10.0-50.0); Mean Corpuscular Hgb Conc. 34.1 g/dL (32.0-36.0); Mean Corpuscular Volume 93.6 fL (80.0-100.0); Monocytes # (auto) 0.6 10 ^3/uL (0-1.3); Monocytes % (auto) 10.5 % (0.0-12.0); Neutrophils # (auto) 4.3 10 ^3/uL (1.6-8.6); Neutrophils % (auto) 72.8 % (37.0-80.0); Nucleated Red Blood Cells % 0.1 %; Red Blood Cells 5.17 10^6/uL (4.5-5.90); Red Cell Distribution Width 16.4 % (11.8-14.3); White Blood Cell 5.9 10^3/uL (4.4-10.8)
[2023-04-04 09:57] LABS: Alanine Aminotransferase 23 U/L (7-40); Albumin 4.3 g/dL (3.2-4.8); Alkaline Phosphatase 119 U/L (46-116); Anion Gap 6.7 (5-15); Aspartate Aminotransferase 16 U/L (13-40); BUN/Creatinine Ratio 21.7 (10.0-20.0); Bilirubin, Total 1.6 mg/dL (0.2-1.0); Blood Urea Nitrogen 23 mg/dL (9-23); Calcium 9.2 mg/dL (8.5-10.1); Carbon Dioxide 28.3 mmol/L (20-30); Chloride 101 mmol/L (98-107); Glucose 117 mg/dL (74-106); Magnesium 1.9 mg/dL (1.6-2.6); Potassium 3.7 mmol/L (3.5-5.1); Sodium 136 mmol/L (136-145); Total Protein 6.7 g/dL (5.7-8.2)
[2023-04-04] MEDS ORDERED: ASPirin 325 MG TAB PO ONE (11:30)
[2023-04-04] MEDS ORDERED: SODIUM CHLORIDE 0.9% 1,000 ML IV ONE (11:30)
[2023-04-04 12:33] LABS: Urine Bacteria NONE SEEN /hpf (None Seen); Urine Blood 1+ /uL (Negative); Urine Clarity Clear (Clear); Urine Color Yellow (Yellow); Urine Mucus FEW (None Seen); Urine Protein, UAD 1+ (Negative); Urine Specific Gravity 1.018 (1.001-1.035); Urine Urobilinogen Normal (Negative); Urine WBC 1 /hpf (0 - 3); Urine pH 5.5 (5.0-8.0)
[2023-04-04 13:27] LABS: Amphetamine Screen, Urine Neg (NEGATIVE)
[2023-04-04 13:28] LABS: Barbiturate Scree,Urine Neg (NEGATIVE); Benzodiazephine Screen, Urine Neg (NEGATIVE); Cannabinoid Screen, Urine Neg (NEGATIVE); Cocaine Screen, Urine Neg (NEGATIVE); Opiate Scree,Urine Neg (NEGATIVE); Phencyclidine Screen, Urine Neg (NEGATIVE)
[2023-04-04 15:30] VITALS: PULSE 102; RESP 20; O2SAT 95
[2023-04-04] MEDS ORDERED: MORPHINE SULFATE INJ 2 MG/ml SYRG IV PRN ×2 (15:30→20:00)
[2023-04-04] MEDS ORDERED: NITROGLYCERIN 0.4 MG SL TAB SL PRN (15:30)
[2023-04-04] MEDS ORDERED: SPIRONOLACTONE 25 MG TAB PO ONE (15:45)
[2023-04-04] MEDS ORDERED: BUMETANIDE 1 MG TAB PO ONE (15:45)
[2023-04-04] MEDS ORDERED: SACUBITRIL-VALSARTAN 24mg/26mg TAB PO SCH (15:45)
[2023-04-04] MEDS ORDERED: CARVEDILOL 3.125 MG TAB PO ONE (15:45)
[2023-04-04] MEDS ORDERED: POTASSIUM CHL 20 Meq TABLET PO ONE (15:45)
[2023-04-04] MEDS ORDERED: MEXILETINE HYDROCHLORIDE 150 MG CAP PO ONE (16:00)
[2023-04-04] MEDS ORDERED: PATIENTS OWN MEDICATION PO ONE (16:00)
[2023-04-04] MEDS ORDERED: PANTOPRAZOLE 40 MG TAB PO ONE (16:00)
[2023-04-04] MEDS ORDERED: EMPAGLIFLOZIN 10 MG TAB PO ONE ×2 (16:00→16:45)
[2023-04-04] MEDS ORDERED: DEXTROSE (50%) 50ML SYRG IV PRN (16:00)
[2023-04-04] MEDS ORDERED: DOCUSATE CALCIUM 240 MG CAP PO PRN (16:30)
[2023-04-04] MEDS: InsuLIN REG 1unit/0.01ml Soln (100units/ml) SC SCH ×2 (17:11→21:34)
[2023-04-04] MEDS: ACCU-CHEK COMFORT CURVE STRIP VI SCH ×2 (17:11→21:33)
[2023-04-04 17:17] LABS: Alanine Aminotransferase 19 U/L (7-40); Albumin 4.1 g/dL (3.2-4.8); Alkaline Phosphatase 109 U/L (46-116); Anion Gap 5 (5-15); Aspartate Aminotransferase 21 U/L (13-40); BUN/Creatinine Ratio 14.9 (10.0-20.0); Blood Urea Nitrogen 17 mg/dL (9-23); Calcium 9.1 mg/dL (8.5-10.1); Carbon Dioxide 30 mmol/L (20-30); Chloride 102 mmol/L (98-107); Glucose 156 mg/dL (74-106); Potassium 3.7 mmol/L (3.5-5.1); Sodium 137 mmol/L (136-145)
[2023-04-04 17:18] LABS: Total Protein 6.7 g/dL (5.7-8.2)
[2023-04-04 17:29] LABS: INR 1.28 (0.9-1.15); Partial Thromboplastin Time 29.9 SEC (24.5-34.5); Prothrombin Time 13.2 sec (9.3-11.8)
[2023-04-04] MEDS: SPIRONOLACTONE 25 MG TAB PO SCH (18:37)
[2023-04-04 19:30] VITALS: PULSE 107; RESP 18; O2SAT 96
[2023-04-04] MEDS ORDERED: TEMAZEPAM 15 MG CAP PO ONE (21:00)
[2023-04-04] MEDS ORDERED: ONDANSETRON HCL 4 MG/2 ML VIAL ONE (21:04)
[2023-04-04] MEDS ORDERED: ONDANSETRON HCL 4 MG/2 ML VIAL IV PRN (21:15)
[2023-04-04] MEDS: CARVEDILOL 3.125 MG TAB PO SCH ×2 (21:31→21:37)
[2023-04-04] MEDS: SACUBITRIL-VALSARTAN 24mg/26mg TAB PO SCH (21:37)
[2023-04-04] MEDS: MEXILETINE HYDROCHLORIDE 150 MG CAP PO SCH (21:37)
[2023-04-04] MEDS ORDERED: ATORVASTATIN 20 MG TAB PO SCH (22:00)
[2023-04-04 23:30] VITALS: BP_SYST 97; BP_DIAS 64; BP_DIAS 69; PULSE 79; PULSE 80; RESP 20; TEMP 97.4; O2SAT 97
[2023-04-05 05:00] VITALS: BP 98/71; PULSE 87; RESP 20; TEMP 97.8; O2SAT 96
[2023-04-05] MEDS: SPIRONOLACTONE 25 MG TAB PO SCH ×2 (05:23→18:00)
[2023-04-05 05:57] LABS: Basophils # (auto) 0 10 ^3/uL (0-0.2); Basophils % (auto) 0.7 % (0.0-2.0); Eosinophils # (auto) 0.2 10 ^3/uL (0-0.8); Eosinophils % (auto) 3.8 % (0.0-7.0); Hemoglobin 15.3 g/dL (13.5-17.5); Lymphocytes # (auto) 0.8 10 ^3/uL (0.4-5.4); Lymphocytes % (auto) 15.3 % (10.0-50.0); Mean Corpuscular Hemoglobin 32.4 pg (28.0-32.0); Mean Corpuscular Hgb Conc. 34.1 g/dL (32.0-36.0); Monocytes # (auto) 0.6 10 ^3/uL (0-1.3); Monocytes % (auto) 10.7 % (0.0-12.0); Neutrophils # (auto) 3.7 10 ^3/uL (1.6-8.6); Neutrophils % (auto) 69.5 % (37.0-80.0); Nucleated Red Blood Cells % 0.2 %; Red Blood Cells 4.73 10^6/uL (4.5-5.90); Red Cell Distribution Width 16.5 % (11.8-14.3); White Blood Cell 5.3 10^3/uL (4.4-10.8)
[2023-04-05] MEDS: ACCU-CHEK COMFORT CURVE STRIP VI SCH ×3 (06:12→17:00)
[2023-04-05] MEDS: InsuLIN REG 1unit/0.01ml Soln (100units/ml) SC SCH ×3 (06:14→17:00)
[2023-04-05] MEDS: MEXILETINE HYDROCHLORIDE 150 MG CAP PO SCH ×2 (06:45→15:31)
[2023-04-05 08:00] VITALS: PULSE 76
[2023-04-05] MEDS: SACUBITRIL-VALSARTAN 24mg/26mg TAB PO SCH (08:32)
[2023-04-05] MEDS: CARVEDILOL 3.125 MG TAB PO SCH (08:34)
[2023-04-05 09:00] VITALS: BP 95/68; PULSE 87; RESP 20; TEMP 98.8; O2SAT 95
[2023-04-05 09:08] LABS: Alanine Aminotransferase 23 U/L (7-40); Alkaline Phosphatase 107 U/L (46-116); Anion Gap 5 (5-15); Aspartate Aminotransferase 21 U/L (13-40); Bilirubin, Total 1.2 mg/dL (0.2-1.0); Blood Urea Nitrogen 24 mg/dL (9-23); Calcium 9.2 mg/dL (8.5-10.1); Carbon Dioxide 29 mmol/L (20-30); Chloride 103 mmol/L (98-107); Glucose 114 mg/dL (74-106); Potassium 4.5 mmol/L (3.5-5.1); Sodium 137 mmol/L (136-145); Total Protein 6.2 g/dL (5.7-8.2)
[2023-04-05] MEDS ORDERED: POTASSIUM CHL 20 Meq TABLET PO SCH (10:00)
[2023-04-05] MEDS ORDERED: VERQUVO 2.5 MG PO SCH (10:00)
[2023-04-05] MEDS ORDERED: BUMETANIDE 1 MG TAB PO SCH (10:00)
[2023-04-05] MEDS ORDERED: EMPAGLIFLOZIN 10 MG TAB PO SCH (10:00)
[2023-04-05] MEDS ORDERED: ASPirin 81 mg TAB PO SCH (10:00)
[2023-04-05] MEDS ORDERED: PANTOPRAZOLE 40 MG TAB PO SCH (10:00)
[2023-04-05 13:00] VITALS: BP 94/68; PULSE 80; RESP 20; TEMP 97.5; O2SAT 100
[2023-04-05] MEDS ORDERED: ALPRAZolam 0.25 MG TAB PO PRN (13:15)
[2023-04-05] MEDS ORDERED: ACETAMINOPHEN 325 MG TAB PO PRN (15:15)
[2023-04-05 16:14] VITALS: BP 95/68; PULSE 87
[2023-04-05 16:43] VITALS: BP 94/72; PULSE 66; RESP 20; TEMP 98; O2SAT 99
== END 2023-04-05 18:06 | disposition home or self-care (01) | DRG 198 ==
LOC: EDUNIT# 09:13 → EDBD 09:13 → ER 09:13 → TELE 15:19 → TELE-WESTW 23:17
PROVIDERS: ADMIT Internal Medicine Geriatric Medicine; ATTEND Student in an Organized Health Care Education/Training Program
DX: I25.110 Atherosclerotic heart disease of native coronary artery with unstable angina pectoris (principal); I27.20 Pulmonary hypertension, unspecified; I24.9 Acute ischemic heart disease, unspecified; I42.8 Other cardiomyopathies; I49.5 Sick sinus syndrome; I50.22 Chronic systolic (congestive) heart failure; I11.0 Hypertensive heart disease with heart failure; E11.9 Type 2 diabetes mellitus without complications; E66.9 Obesity, unspecified; E78.5 Hyperlipidemia, unspecified; Z82.3 Family history of stroke; Z83.3 Family history of diabetes mellitus; Z91.013 Allergy to seafood; Z82.49 Family history of ischemic heart disease and other diseases of the circulatory system; Z87.891 Personal history of nicotine dependence; Z98.61 Coronary angioplasty status; Z82.61 Family history of arthritis; Z68.27 Body mass index [BMI] 27.0-27.9, adult
CPT/HCPCS: 36415; 71046; 80053; 80061; 80307; 81001; 82962; 83605; 83735; 83880; 84443; 84484; 85025; 85610; 85730; 87081; 93005; 96361; 96374; 96375; G0378; J1815; J2405

== ENCOUNTER 2023-05-14 15:00 | Inpatient (IN) | payer MEDICAID ==
[~2023-05-14] VITALS: Ht 182.9 cm; Wt 88.0 kg
[2023-05-14] MEDS ORDERED: ACETAMINOPHEN 325 MG TAB PO ONE (15:15)
[2023-05-14] MEDS ORDERED: NITROGLYCERIN 2% OINT 1GM PKG TD ONE (15:15)
[2023-05-14 15:47] LABS: Basophils # (auto) 0 10 ^3/uL (0-0.2); Basophils % (auto) 0.7 % (0.0-2.0); Eosinophils # (auto) 0.1 10 ^3/uL (0-0.8); Eosinophils % (auto) 1.5 % (0.0-7.0); Hemoglobin 15.3 g/dL (13.5-17.5); Lymphocytes # (auto) 0.5 10 ^3/uL (0.4-5.4); Lymphocytes % (auto) 9.5 % (10.0-50.0); Mean Corpuscular Hemoglobin 32.2 pg (28.0-32.0); Mean Corpuscular Volume 94.7 fL (80.0-100.0); Monocytes # (auto) 0.3 10 ^3/uL (0-1.3); Monocytes % (auto) 6.6 % (0.0-12.0); Neutrophils # (auto) 4.2 10 ^3/uL (1.6-8.6); Neutrophils % (auto) 81.7 % (37.0-80.0); Nucleated Red Blood Cells % 0.1 %; Red Blood Cells 4.75 10^6/uL (4.5-5.90); Red Cell Distribution Width 15.4 % (11.8-14.3); White Blood Cell 5.2 10^3/uL (4.4-10.8)
[2023-05-14 16:00] LABS: Alanine Aminotransferase 19 U/L (7-40); Alkaline Phosphatase 126 U/L (46-116); Anion Gap 9 (5-15); Aspartate Aminotransferase 14 U/L (13-40); BUN/Creatinine Ratio 18.8 (10.0-20.0); Blood Urea Nitrogen 22 mg/dL (9-23); Calcium 9.1 mg/dL (8.7-10.4); Carbon Dioxide 27 mmol/L (20-30); Chloride 101 mmol/L (98-107); Glucose 96 mg/dL (74-106); Magnesium 2.1 mg/dL (1.6-2.6); Potassium 3.6 mmol/L (3.5-5.1); Sodium 137 mmol/L (136-145)
[2023-05-14 16:01] LABS: Albumin 4.3 g/dL (3.2-4.8); Bilirubin, Total 1.4 mg/dL (0.2-1.0); Total Protein 6.7 g/dL (5.7-8.2)
[2023-05-14 16:05] LABS: INR 1.19 (0.9-1.15); Partial Thromboplastin Time 29.5 SEC (24.5-34.5); Prothrombin Time 12.4 sec (9.3-11.8)
[2023-05-14] MEDS ORDERED: BUMETANIDE 2.5mg/10ml (0.25 mg/ml) INJ IV ONE (16:15)
[2023-05-14] MEDS ORDERED: DEXTROSE (50%) 50ML SYRG IV PRN (20:45)
[2023-05-14] MEDS ORDERED: ACETAMINOPHEN 325 MG TAB PO PRN (20:45)
[2023-05-14] MEDS ORDERED: TEMAZEPAM 15 MG CAP PO PRN (20:45)
[2023-05-14] MEDS ORDERED: NITROGLYCERIN 0.4 MG SL TAB SL PRN (20:45)
[2023-05-14] MEDS ORDERED: ONDANSETRON HCL 4 MG/2 ML VIAL IV PRN (20:45)
[2023-05-14] MEDS ORDERED: MORPHINE SULFATE INJ 2 MG/ml SYRG IV PRN (20:45)
[2023-05-15] VITALS (8 sets, daily range): BP systolic 85–100; BP diastolic 59–71; PULSE 70–94; RESP 16–20; TEMP 36.3; O2SAT 92–99
[2023-05-15] MEDS: ATORVASTATIN 20 MG TAB PO SCH ×2 (01:12→21:28)
[2023-05-15] MEDS: CARVEDILOL 3.125 MG TAB PO SCH ×3 (01:12→21:28)
[2023-05-15] MEDS: SACUBITRIL-VALSARTAN 24mg/26mg TAB PO SCH ×3 (01:12→21:27)
[2023-05-15] MEDS: InsuLIN REG 1unit/0.01ml Soln (100units/ml) SC SCH ×5 (01:25→21:32)
[2023-05-15] MEDS: ACCU-CHEK COMFORT CURVE STRIP VI SCH ×5 (01:25→21:32)
[2023-05-15] MEDS: SPIRONOLACTONE 25 MG TAB PO SCH ×2 (05:36→18:15)
[2023-05-15] MEDS: BUMETANIDE 2.5mg/10ml (0.25 mg/ml) INJ IV SCH ×2 (06:00→18:15)
[2023-05-15 06:44] LABS: Calcium 9.2 mg/dL (8.7-10.4); Chloride 101 mmol/L (98-107); Potassium 3.3 mmol/L (3.5-5.1); Sodium 137 mmol/L (136-145)
[2023-05-15 06:45] LABS: Anion Gap 9 (5-15); Basophils # (auto) 0 10 ^3/uL (0-0.2); Basophils % (auto) 0.7 % (0.0-2.0); Carbon Dioxide 27 mmol/L (20-30); Eosinophils # (auto) 0.1 10 ^3/uL (0-0.8); Eosinophils % (auto) 2.9 % (0.0-7.0); Hematocrit 46.3 % (41.0-53.0); Hemoglobin 15.5 g/dL (13.5-17.5); Lymphocytes # (auto) 0.6 10 ^3/uL (0.4-5.4); Lymphocytes % (auto) 14.9 % (10.0-50.0); Mean Corpuscular Hemoglobin 31.8 pg (28.0-32.0); Mean Corpuscular Hgb Conc. 33.5 g/dL (32.0-36.0); Mean Corpuscular Volume 94.7 fL (80.0-100.0); Monocytes # (auto) 0.3 10 ^3/uL (0-1.3); Monocytes % (auto) 8.1 % (0.0-12.0); Neutrophils % (auto) 73.4 % (37.0-80.0); Nucleated Red Blood Cells % 0.2 %; Red Blood Cells 4.89 10^6/uL (4.5-5.90); Red Cell Distribution Width 15.4 % (11.8-14.3); White Blood Cell 4.1 10^3/uL (4.4-10.8)
[2023-05-15 06:50] LABS: Blood Urea Nitrogen 17 mg/dL (9-23); Glucose 106 mg/dL (74-106)
[2023-05-15] MEDS: ENOXAPARIN SOD 40 MG/0.4 ML SYRINGE SC SCH (10:46)
[2023-05-15] MEDS: ASPirin 81 mg TAB PO SCH (10:46)
[2023-05-15] MEDS ORDERED: POTASSIUM CHL 20 Meq TABLET PO ONE (16:30)
[2023-05-15] MEDS ORDERED: metOLazone 5 MG TAB PO ONE (17:00)
[2023-05-15] MEDS ORDERED: SPIR25TA8 PO (17:38)
[2023-05-15] MEDS ORDERED: SIMV10TA20 PO (17:38)
[2023-05-15] MEDS ORDERED: MEXI150C15 PO (17:38)
[2023-05-15] MEDS ORDERED: CARV3.1240 PO (17:38)
[2023-05-15] MEDS ORDERED: BUME1TAB3 PO (17:38)
[2023-05-15] MEDS ORDERED: ATOR20TA50 PO (17:38)
[2023-05-15] MEDS ORDERED: PANT40TA2 PO (17:38)
[2023-05-15] MEDS ORDERED: NITR0.4S29 SL (17:38)
[2023-05-15] MEDS ORDERED: METF-370 PO (17:38)
[2023-05-15] MEDS ORDERED: DAPA1TAB4 PO (17:38)
[2023-05-15] MEDS ORDERED: SACU1TAB PO (17:38)
[2023-05-15] MEDS ORDERED: POTA10TA51 PO (17:38)
[2023-05-15] MEDS ORDERED: VERI2.5T PO (17:38)
[2023-05-15] MEDS ORDERED: ASPI-543 PO (17:38)
[2023-05-15] MEDS ORDERED: IVAB1TAB2 PO (17:38)
[2023-05-16 05:00] VITALS: BP 85/56; PULSE 66; RESP 18; TEMP 97.1; O2SAT 96
[2023-05-16] MEDS: BUMETANIDE 2.5mg/10ml (0.25 mg/ml) INJ IV SCH ×2 (06:46→17:56)
[2023-05-16] MEDS: ACCU-CHEK COMFORT CURVE STRIP VI SCH ×3 (06:46→17:06)
[2023-05-16] MEDS: SPIRONOLACTONE 25 MG TAB PO SCH ×2 (06:46→17:56)
[2023-05-16] MEDS: InsuLIN REG 1unit/0.01ml Soln (100units/ml) SC SCH ×3 (06:47→17:00)
[2023-05-16 08:00] VITALS: PULSE 59
[2023-05-16 09:00] VITALS: BP 87/60; PULSE 68; RESP 18; TEMP 97.7; O2SAT 95
[2023-05-16] MEDS: CARVEDILOL 3.125 MG TAB PO SCH (10:00)
[2023-05-16] MEDS: SACUBITRIL-VALSARTAN 24mg/26mg TAB PO SCH (10:00)
[2023-05-16] MEDS: ASPirin 81 mg TAB PO SCH (10:25)
[2023-05-16] MEDS: ENOXAPARIN SOD 40 MG/0.4 ML SYRINGE SC SCH (10:25)
[2023-05-16 13:00] VITALS: BP 83/59; PULSE 77; RESP 16; TEMP 97.7; O2SAT 94
[2023-05-16 15:52] VITALS: BP 83/59; PULSE 77; RESP 16; TEMP 97.7; O2SAT 94
[2023-05-16 17:00] VITALS: BP 98/65; PULSE 49; RESP 20; TEMP 97.9; O2SAT 97
== END 2023-05-16 18:35 | disposition home or self-care (01) | DRG 133 ==
LOC: EDBD 15:00 → ER 15:00 → TELE 20:39 → TELE-CENTR 05-15 09:24
PROVIDERS: ADMIT Nurse Practitioner; ATTEND Family Medicine
DX: J96.21 Acute and chronic respiratory failure with hypoxia (principal); I50.43 Acute on chronic combined systolic (congestive) and diastolic (congestive) heart failure; I95.89 Other hypotension; I27.20 Pulmonary hypertension, unspecified; I42.8 Other cardiomyopathies; I13.0 Hypertensive heart and chronic kidney disease with heart failure and stage 1 through stage 4 chronic kidney disease, or unspecified chronic kidney disease; E11.22 Type 2 diabetes mellitus with diabetic chronic kidney disease; E78.00 Pure hypercholesterolemia, unspecified; I25.10 Atherosclerotic heart disease of native coronary artery without angina pectoris; N18.9 Chronic kidney disease, unspecified; Z82.49 Family history of ischemic heart disease and other diseases of the circulatory system; Z82.3 Family history of stroke; Z83.3 Family history of diabetes mellitus; Z86.711 Personal history of pulmonary embolism; Z87.891 Personal history of nicotine dependence; Z91.013 Allergy to seafood; Z95.0 Presence of cardiac pacemaker; Z95.5 Presence of coronary angioplasty implant and graft; E11.65 Type 2 diabetes mellitus with hyperglycemia
CPT/HCPCS: 36415; 71046; 80048; 80053; 82962; 83735; 83880; 84484; 85025; 85610; 85730; 93005; G0378; J2405

== ENCOUNTER 2023-05-30 10:28 | Inpatient (IN) | payer MEDICAID ==
[~2023-05-30] VITALS: Ht 195.6 cm; Wt 92.8 kg
[~2023-05-30 10:28] MED LIST changes: +ASPI-543 PO; -ASPI81CH43 PO; -BUME1TAB26 PO; +BUME1TAB3 PO; -CHOL1TAB42 PO; -CHOL500021 PO; +METF-370 PO; -METF-869 PO; -PANT40T PO
[2023-05-30 11:09] LABS: Basophils # (auto) 0 10 ^3/uL (0-0.2); Basophils % (auto) 0.3 % (0.0-2.0); Eosinophils # (auto) 0.1 10 ^3/uL (0-0.8); Eosinophils % (auto) 0.8 % (0.0-7.0); Hematocrit 40.5 % (41.0-53.0); Hemoglobin 13.9 g/dL (13.5-17.5); Lymphocytes # (auto) 0.7 10 ^3/uL (0.4-5.4); Lymphocytes % (auto) 10.5 % (10.0-50.0); Mean Corpuscular Hemoglobin 32.8 pg (28.0-32.0); Mean Corpuscular Hgb Conc. 34.3 g/dL (32.0-36.0); Mean Corpuscular Volume 95.6 fL (80.0-100.0); Monocytes # (auto) 0.5 10 ^3/uL (0-1.3); Monocytes % (auto) 7.7 % (0.0-12.0); Neutrophils # (auto) 5.7 10 ^3/uL (1.6-8.6); Neutrophils % (auto) 80.7 % (37.0-80.0); Nucleated Red Blood Cells % 0.2 %; Red Blood Cells 4.23 10^6/uL (4.5-5.90); Red Cell Distribution Width 15.3 % (11.8-14.3)
[2023-05-30 11:31] LABS: Alanine Aminotransferase 18 U/L (7-40); Albumin 4.2 g/dL (3.2-4.8); Alkaline Phosphatase 119 U/L (46-116); Anion Gap 6 (5-15); Aspartate Aminotransferase 17 U/L (13-40); BUN/Creatinine Ratio 17.1 (10.0-20.0); Bilirubin, Total 2.1 mg/dL (0.2-1.0); Blood Urea Nitrogen 20 mg/dL (9-23); Calcium 9.4 mg/dL (8.5-10.1); Carbon Dioxide 29 mmol/L (20-30); Chloride 102 mmol/L (98-107); Glucose 133 mg/dL (74-106); Potassium 3.9 mmol/L (3.5-5.1); Sodium 137 mmol/L (136-145); Total Protein 6.3 g/dL (5.7-8.2)
[2023-05-30] MEDS ORDERED: NITROGLYCERIN 2% OINT 1GM PKG TD ONE (11:45)
[2023-05-30] MEDS ORDERED: NITROGLYCERIN 0.4 MG SL TAB SL PRN (12:15)
[2023-05-30] MEDS ORDERED: MORPHINE SULFATE 4 MG/ML SYR/VIAL IV PRN (12:15)
[2023-05-30] MEDS ORDERED: DEXTROSE (50%) 50ML SYRG IV PRN (12:15)
[2023-05-30 12:48] VITALS: PULSE 19; RESP 19; O2SAT 95
[2023-05-30 13:03] LABS: INR 1.33 (0.9-1.15); Prothrombin Time 13.7 sec (9.3-11.8)
[2023-05-30] MEDS: BUMETANIDE 1 MG TAB PO SCH ×2 (13:07→23:04)
[2023-05-30] MEDS: MEXILETINE HYDROCHLORIDE 150 MG CAP PO SCH ×2 (13:10→23:04)
[2023-05-30] MEDS: InsuLIN REG 1unit/0.01ml Soln (100units/ml) SC SCH ×2 (18:00→23:00)
[2023-05-30] MEDS: ACCU-CHEK COMFORT CURVE STRIP VI SCH ×2 (18:00→23:00)
[2023-05-30] MEDS: ONDANSETRON HCL 4 MG/2 ML VIAL IV PRN ×2 (18:04→23:44)
[2023-05-30] MEDS: IVABRADINE 7.5 MG PO SCH (22:49)
[2023-05-30] MEDS: SACUBITRIL-VALSARTAN 24mg/26mg TAB PO SCH (23:05)
[2023-05-30] MEDS: CARVEDILOL 3.125 MG TAB PO SCH (23:05)
[2023-05-30] MEDS: ENOXAPARIN SOD 100 MG/1 ML SYRINGE SC SCH (23:06)
[2023-05-30] MEDS: SPIRONOLACTONE 25 MG TAB PO SCH (23:06)
[2023-05-31] VITALS (8 sets, daily range): BP systolic 83–106; BP diastolic 56–72; PULSE 68–97; RESP 16–22; TEMP 97.6–98.5; O2SAT 94–99
[2023-05-31] MEDS: MEXILETINE HYDROCHLORIDE 150 MG CAP PO SCH ×3 (06:00→22:00)
[2023-05-31 06:37] LABS: Basophils # (auto) 0 10 ^3/uL (0-0.2); Basophils % (auto) 0.5 % (0.0-2.0); Eosinophils # (auto) 0.1 10 ^3/uL (0-0.8); Eosinophils % (auto) 1.3 % (0.0-7.0); Hematocrit 39.6 % (41.0-53.0); Hemoglobin 13.5 g/dL (13.5-17.5); Lymphocytes # (auto) 0.8 10 ^3/uL (0.4-5.4); Lymphocytes % (auto) 11.4 % (10.0-50.0); Mean Corpuscular Hemoglobin 32.8 pg (28.0-32.0); Mean Corpuscular Hgb Conc. 34.2 g/dL (32.0-36.0); Monocytes # (auto) 0.7 10 ^3/uL (0-1.3); Monocytes % (auto) 10.7 % (0.0-12.0); Neutrophils # (auto) 5.3 10 ^3/uL (1.6-8.6); Neutrophils % (auto) 76.1 % (37.0-80.0); Nucleated Red Blood Cells % 0.2 %; Red Blood Cells 4.12 10^6/uL (4.5-5.90); Red Cell Distribution Width 15.4 % (11.8-14.3)
[2023-05-31] MEDS: ACCU-CHEK COMFORT CURVE STRIP VI SCH ×4 (06:38→22:13)
[2023-05-31] MEDS: InsuLIN REG 1unit/0.01ml Soln (100units/ml) SC SCH ×4 (06:38→21:56)
[2023-05-31 06:57] LABS: Alanine Aminotransferase 15 U/L (7-40); Albumin 4.1 g/dL (3.2-4.8); Alkaline Phosphatase 121 U/L (46-116); Anion Gap 5 (5-15); Aspartate Aminotransferase 17 U/L (13-40); BUN/Creatinine Ratio 11.9 (10.0-20.0); Bilirubin, Total 2.4 mg/dL (0.2-1.0); Blood Urea Nitrogen 15 mg/dL (9-23); Carbon Dioxide 28 mmol/L (20-30); Chloride 101 mmol/L (98-107); Glucose 90 mg/dL (74-106); Potassium 4.1 mmol/L (3.5-5.1); Sodium 134 mmol/L (136-145); Total Protein 6.3 g/dL (5.7-8.2)
[2023-05-31] MEDS: VERICIGUAT 2.5 MG PO SCH (10:00)
[2023-05-31] MEDS: IVABRADINE 7.5 MG PO SCH ×2 (10:00→22:00)
[2023-05-31] MEDS ORDERED: BUMETANIDE 1 MG TAB PO SCH (10:00)
[2023-05-31] MEDS: ENOXAPARIN SOD 100 MG/1 ML SYRINGE SC SCH ×2 (10:00→22:00)
[2023-05-31] MEDS: PATIENTS OWN MEDICATION (Dapagliflozin Propanediol (Farxiga) 10 MG) PO SCH (10:00)
[2023-05-31] MEDS ORDERED: PANTOPRAZOLE 40 MG TAB PO SCH (10:00)
[2023-05-31] MEDS: DOCUSATE SOD 100 MG CAP PO SCH (10:39)
[2023-05-31] MEDS: SACUBITRIL-VALSARTAN 24mg/26mg TAB PO SCH ×2 (10:39→21:57)
[2023-05-31] MEDS: ASPirin-EC 81 mg tab PO SCH (10:39)
[2023-05-31] MEDS: BUMETANIDE 1 MG TAB PO SCH ×2 (10:40→21:58)
[2023-05-31] MEDS: CARVEDILOL 3.125 MG TAB PO SCH ×2 (10:41→22:00)
[2023-05-31] MEDS: SPIRONOLACTONE 25 MG TAB PO SCH ×2 (10:42→21:57)
[2023-05-31] MEDS: ATORVASTATIN 20 MG TAB PO SCH (10:42)
[2023-06-01] VITALS (7 sets, daily range): BP systolic 93–106; BP diastolic 56–76; PULSE 68–95; RESP 16–22; TEMP 97.8–98.3; O2SAT 94–97
[2023-06-01] MEDS: guaiFENesin-CODEINE Liq 5 ML UD PO PRN ×3 (04:32→20:43)
[2023-06-01] MEDS: MEXILETINE HYDROCHLORIDE 150 MG CAP PO SCH ×3 (06:00→22:06)
[2023-06-01] MEDS: InsuLIN REG 1unit/0.01ml Soln (100units/ml) SC SCH ×4 (06:05→22:00)
[2023-06-01] MEDS: ACCU-CHEK COMFORT CURVE STRIP VI SCH ×4 (06:20→22:00)
[2023-06-01] MEDS: VERICIGUAT 2.5 MG PO SCH (10:00)
[2023-06-01] MEDS: CARVEDILOL 3.125 MG TAB PO SCH ×2 (10:00→22:07)
[2023-06-01] MEDS: PATIENTS OWN MEDICATION (Dapagliflozin Propanediol (Farxiga) 10 MG) PO SCH (10:00)
[2023-06-01] MEDS: ENOXAPARIN SOD 100 MG/1 ML SYRINGE SC SCH ×2 (10:00→22:08)
[2023-06-01] MEDS: IVABRADINE 7.5 MG PO SCH (10:00)
[2023-06-01] MEDS: DOCUSATE SOD 100 MG CAP PO SCH (10:33)
[2023-06-01] MEDS: BUMETANIDE 1 MG TAB PO SCH ×2 (10:34→22:06)
[2023-06-01] MEDS: SPIRONOLACTONE 25 MG TAB PO SCH ×2 (10:34→22:07)
[2023-06-01] MEDS: SACUBITRIL-VALSARTAN 24mg/26mg TAB PO SCH ×2 (10:36→22:07)
[2023-06-01] MEDS: ASPirin-EC 81 mg tab PO SCH (10:37)
[2023-06-01] MEDS: ATORVASTATIN 20 MG TAB PO SCH (10:37)
[2023-06-01] MEDS ORDERED: MELATONIN 5 MG TAB PO ONE (22:30)
[2023-06-02 05:00] VITALS: BP 88/60; PULSE 88; RESP 18; TEMP 98.4; O2SAT 95
[2023-06-02] MEDS: ACCU-CHEK COMFORT CURVE STRIP VI SCH ×4 (06:31→21:46)
[2023-06-02] MEDS: InsuLIN REG 1unit/0.01ml Soln (100units/ml) SC SCH ×4 (06:31→21:43)
[2023-06-02] MEDS: MEXILETINE HYDROCHLORIDE 150 MG CAP PO SCH ×3 (06:31→21:42)
[2023-06-02 08:45] VITALS: BP 106/75; PULSE 86; RESP 19; TEMP 97.6; O2SAT 95
[2023-06-02] MEDS: ATORVASTATIN 20 MG TAB PO SCH (10:00)
[2023-06-02] MEDS: SPIRONOLACTONE 25 MG TAB PO SCH ×2 (10:00→21:40)
[2023-06-02] MEDS: ENOXAPARIN SOD 100 MG/1 ML SYRINGE SC SCH ×2 (10:00→21:46)
[2023-06-02] MEDS: DOCUSATE SOD 100 MG CAP PO SCH (10:00)
[2023-06-02] MEDS: BUMETANIDE 1 MG TAB PO SCH ×2 (10:00→21:41)
[2023-06-02] MEDS: ASPirin-EC 81 mg tab PO SCH (10:34)
[2023-06-02] MEDS: SACUBITRIL-VALSARTAN 24mg/26mg TAB PO SCH ×2 (10:34→21:42)
[2023-06-02] MEDS: CARVEDILOL 3.125 MG TAB PO SCH ×2 (10:36→21:41)
[2023-06-02] MEDS: ONDANSETRON HCL 4 MG/2 ML VIAL IV PRN ×2 (10:36→22:29)
[2023-06-02] MEDS: guaiFENesin-CODEINE Liq 5 ML UD PO PRN ×2 (10:41→21:59)
[2023-06-02 12:42] VITALS: BP 91/67; PULSE 91; RESP 19; TEMP 98; O2SAT 95
[2023-06-02 16:43] VITALS: BP 88/61; PULSE 93; RESP 16; TEMP 98.4; O2SAT 98
[2023-06-02 22:00] VITALS: BP 84/58; PULSE 79; PULSE 81; RESP 17; TEMP 97.9; O2SAT 94
[2023-06-02 22:02] LABS: COVID19 ANTIGEN SOFIA FIA NEGATIVE (NEGATIVE)
[2023-06-03] VITALS (7 sets, daily range): BP systolic 85–103; BP diastolic 61–71; PULSE 64–90; RESP 16–20; TEMP 97.7–98.7; O2SAT 93–97
[2023-06-03] MEDS: MEXILETINE HYDROCHLORIDE 150 MG CAP PO SCH ×3 (06:44→22:26)
[2023-06-03] MEDS: InsuLIN REG 1unit/0.01ml Soln (100units/ml) SC SCH ×4 (06:49→22:00)
[2023-06-03] MEDS: ACCU-CHEK COMFORT CURVE STRIP VI SCH ×4 (06:49→22:00)
[2023-06-03] MEDS: ATORVASTATIN 20 MG TAB PO SCH (09:19)
[2023-06-03] MEDS: SPIRONOLACTONE 25 MG TAB PO SCH ×2 (09:19→22:26)
[2023-06-03] MEDS: ASPirin-EC 81 mg tab PO SCH (09:19)
[2023-06-03] MEDS: DOCUSATE SOD 100 MG CAP PO SCH (09:19)
[2023-06-03] MEDS: guaiFENesin-CODEINE Liq 5 ML UD PO PRN ×3 (09:19→22:24)
[2023-06-03] MEDS: BUMETANIDE 1 MG TAB PO SCH ×2 (09:22→22:00)
[2023-06-03] MEDS: ENOXAPARIN SOD 100 MG/1 ML SYRINGE SC SCH ×2 (09:23→22:00)
[2023-06-03] MEDS: CARVEDILOL 3.125 MG TAB PO SCH ×2 (09:23→22:00)
[2023-06-03] MEDS: SACUBITRIL-VALSARTAN 24mg/26mg TAB PO SCH ×2 (10:00→22:26)
[2023-06-03] MEDS ORDERED: metOLazone 5 MG TAB PO ONE (11:30)
[2023-06-03] MEDS: DOXYCYCLINE 100 MG TAB/CAP PO SCH ×2 (12:00→22:27)
[2023-06-03 13:07] LABS: Rapid Influenza A Negative (Negative); Rapid Influenza B Negative (Negative)
[2023-06-03] MEDS: ACETAMINOPHEN 325 MG TAB PO PRN ×2 (13:37→23:46)
[2023-06-03] MEDS: ONDANSETRON HCL 4 MG/2 ML VIAL IV PRN (23:44)
[2023-06-04 05:00] VITALS: BP 98/62; PULSE 88; RESP 16; TEMP 98.5; O2SAT 92
[2023-06-04] MEDS: MEXILETINE HYDROCHLORIDE 150 MG CAP PO SCH (06:45)
[2023-06-04] MEDS: InsuLIN REG 1unit/0.01ml Soln (100units/ml) SC SCH ×2 (06:46→11:30)
[2023-06-04] MEDS: ACCU-CHEK COMFORT CURVE STRIP VI SCH ×2 (06:47→11:44)
[2023-06-04 08:00] VITALS: PULSE 79; RESP 18
[2023-06-04 09:03] VITALS: BP 100/62; PULSE 68; RESP 16; TEMP 98.2; O2SAT 91
[2023-06-04] MEDS: ENOXAPARIN SOD 100 MG/1 ML SYRINGE SC SCH (10:00)
[2023-06-04] MEDS: ASPirin-EC 81 mg tab PO SCH (10:41)
[2023-06-04] MEDS: SACUBITRIL-VALSARTAN 24mg/26mg TAB PO SCH (10:41)
[2023-06-04] MEDS: DOCUSATE SOD 100 MG CAP PO SCH (10:42)
[2023-06-04] MEDS: BUMETANIDE 1 MG TAB PO SCH (10:42)
[2023-06-04] MEDS: SPIRONOLACTONE 25 MG TAB PO SCH (10:43)
[2023-06-04] MEDS: ATORVASTATIN 20 MG TAB PO SCH (10:43)
[2023-06-04] MEDS: DOXYCYCLINE 100 MG TAB/CAP PO SCH (10:43)
[2023-06-04] MEDS: CARVEDILOL 3.125 MG TAB PO SCH (10:44)
[2023-06-04] MEDS: guaiFENesin-CODEINE Liq 5 ML UD PO PRN (11:00)
[2023-06-04] MEDS ORDERED: DEXT1SYP9 PO (11:59)
[2023-06-04] MEDS ORDERED: DOXY1CAP57 PO (11:59)
[2023-06-04] MEDS: ONDANSETRON HCL 4 MG/2 ML VIAL IV PRN (12:48)
[2023-06-04 13:06] VITALS: BP 93/62; PULSE 68
[2023-06-04 13:36] VITALS: BP 93/62; PULSE 84; RESP 16; TEMP 98.9; O2SAT 100
== END 2023-06-04 14:39 | disposition home or self-care (01) | DRG 194 ==
LOC: EDBD 10:28 → ER 10:28 → TELE 12:22 → TELE-WESTW 23:06
PROVIDERS: ADMIT Nurse Practitioner Family; ATTEND Family Medicine
DX: I13.0 Hypertensive heart and chronic kidney disease with heart failure and stage 1 through stage 4 chronic kidney disease, or unspecified chronic kidney disease (principal); E11.22 Type 2 diabetes mellitus with diabetic chronic kidney disease; E11.65 Type 2 diabetes mellitus with hyperglycemia; R07.89 Other chest pain; Z20.822 Contact with and (suspected) exposure to COVID-19; N18.9 Chronic kidney disease, unspecified; E78.00 Pure hypercholesterolemia, unspecified; Z82.3 Family history of stroke; Z95.5 Presence of coronary angioplasty implant and graft; Z82.49 Family history of ischemic heart disease and other diseases of the circulatory system; Z83.3 Family history of diabetes mellitus; Z86.711 Personal history of pulmonary embolism; Z87.891 Personal history of nicotine dependence; Z91.013 Allergy to seafood; Z95.0 Presence of cardiac pacemaker; I50.23 Acute on chronic systolic (congestive) heart failure
CPT/HCPCS: 36415; 71045; 71046; 80053; 82962; 83735; 83880; 84100; 84484; 85025; 85379; 85610; 87081; 87426; 87804; G0378; J1815; J2405

== ENCOUNTER 2023-06-12 18:42 | Inpatient (IN) | payer MEDICAID ==
[~2023-06-12] VITALS: Ht 182.9 cm; Wt 83.0 kg
[~2023-06-12 18:42] MED LIST changes: +DEXT1SYP9 PO; +DOXY1CAP57 PO
[2023-06-12] MEDS ORDERED: ALBUTEROL MEDNEB 2.5 mg/3ml NEB NEB ONE (19:30)
[2023-06-12] MEDS ORDERED: IPRATROPIUM BROM 0.5 MG/2.5ML INH SOL NEB ONE (19:30)
[2023-06-12 19:57] LABS: Basophils # (auto) 0.1 10 ^3/uL (0-0.2); Basophils % (auto) 1.2 % (0.0-2.0); Eosinophils # (auto) 0.3 10 ^3/uL (0-0.8); Eosinophils % (auto) 3.7 % (0.0-7.0); Lymphocytes # (auto) 0.9 10 ^3/uL (0.4-5.4); Lymphocytes % (auto) 11.6 % (10.0-50.0); Mean Corpuscular Hemoglobin 32.2 pg (28.0-32.0); Mean Corpuscular Hgb Conc. 33.4 g/dL (32.0-36.0); Mean Corpuscular Volume 96.4 fL (80.0-100.0); Monocytes # (auto) 0.6 10 ^3/uL (0-1.3); Monocytes % (auto) 7.3 % (0.0-12.0); Neutrophils # (auto) 6.1 10 ^3/uL (1.6-8.6); Neutrophils % (auto) 76.2 % (37.0-80.0); Nucleated Red Blood Cells % 0.3 %; Red Blood Cells 4.66 10^6/uL (4.5-5.90); Red Cell Distribution Width 15.7 % (11.8-14.3)
[2023-06-12 20:18] LABS: Alanine Aminotransferase 16 U/L (7-40); Albumin 3.7 g/dL (3.2-4.8); Alkaline Phosphatase 115 U/L (46-116); Anion Gap 8 (5-15); Aspartate Aminotransferase 19 U/L (13-40); BUN/Creatinine Ratio 17.8 (10.0-20.0); Blood Urea Nitrogen 16 mg/dL (9-23); Calcium 7.4 mg/dL (8.5-10.1); Carbon Dioxide 28 mmol/L (20-30); Chloride 101 mmol/L (98-107); Glucose 78 mg/dL (74-106); Potassium 4.6 mmol/L (3.5-5.1); Sodium 137 mmol/L (136-145)
[2023-06-12 20:19] LABS: Bilirubin, Total 1.4 mg/dL (0.2-1.0); Total Protein 5.6 g/dL (5.7-8.2)
[2023-06-12 20:20] LABS: INR 1.24 (0.9-1.15); Partial Thromboplastin Time 29.6 SEC (24.5-34.5); Prothrombin Time 12.8 sec (9.3-11.8)
[2023-06-12 21:01] LABS: Magnesium 2.1 mg/dL (1.6-2.6)
[2023-06-12] MEDS ORDERED: PROMETHAZINE-DM 5 ML ORAL SYRUP PO ONE (21:30)
[2023-06-12] MEDS ORDERED: ASPirin 81 mg TAB PO ONE (21:30)
[2023-06-12] MEDS ORDERED: ONDANSETRON HCL 4 MG/2 ML VIAL IV ONE (21:30)
[2023-06-12] MEDS ORDERED: BUMETANIDE 2.5mg/10ml (0.25 mg/ml) INJ IV ONE (21:30)
[2023-06-12 21:56] LABS: Blood Alcohol 4.5 mg/dL (<10); Magnesium 2.1 mg/dL (1.6-2.6)
[2023-06-12] MEDS ORDERED: ACETAMINOPHEN 325 MG TAB PO PRN (22:15)
[2023-06-12] MEDS ORDERED: DEXTROSE (50%) 50ML SYRG IV PRN (22:15)
[2023-06-13] MEDS ORDERED: MORPHINE SULFATE INJ 2 MG/ml SYRG IV PRN (01:45)
[2023-06-13] MEDS ORDERED: NITROGLYCERIN 0.4 MG SL TAB SL PRN (01:45)
[2023-06-13 01:56] LABS: Urine Bacteria FEW /hpf (None Seen); Urine Blood Negative /uL (Negative); Urine Clarity Clear (Clear); Urine Color Yellow (Yellow); Urine Hyaline Cast FEW /lpf (0 - 2); Urine Mucus FEW (None Seen); Urine Protein, UAD 1+ (Negative); Urine Specific Gravity 1.015 (1.001-1.035); Urine Urobilinogen Normal (Negative); Urine WBC 1 /hpf (0 - 3); Urine pH 5.5 (5.0-8.0)
[2023-06-13 01:59] LABS: Amphetamine Screen, Urine Neg (NEGATIVE); Barbiturate Scree,Urine Neg (NEGATIVE); Benzodiazephine Screen, Urine Neg (NEGATIVE); Cocaine Screen, Urine Neg (NEGATIVE); Opiate Scree,Urine Neg (NEGATIVE); Phencyclidine Screen, Urine Neg (NEGATIVE)
[2023-06-13 02:00] LABS: Cannabinoid Screen, Urine Neg (NEGATIVE)
[2023-06-13 06:56] LABS: Alanine Aminotransferase 21 U/L (7-40); Albumin 4.7 g/dL (3.2-4.8); Alkaline Phosphatase 151 U/L (46-116); Anion Gap 6 (5-15); Aspartate Aminotransferase 22 U/L (13-40); BUN/Creatinine Ratio 15.3 (10.0-20.0); Bilirubin, Total 2.1 mg/dL (0.2-1.0); Blood Urea Nitrogen 19 mg/dL (9-23); Calcium 9.5 mg/dL (8.5-10.1); Carbon Dioxide 31 mmol/L (20-30); Chloride 99 mmol/L (98-107); Glucose 102 mg/dL (74-106); Potassium 3.9 mmol/L (3.5-5.1); Sodium 136 mmol/L (136-145); Total Protein 7.6 g/dL (5.7-8.2)
[2023-06-13] MEDS: InsuLIN REG 1unit/0.01ml Soln (100units/ml) SC SCH ×4 (07:00→22:00)
[2023-06-13] MEDS: ACCU-CHEK COMFORT CURVE STRIP VI SCH ×4 (07:19→22:29)
[2023-06-13] MEDS: MEXILETINE HYDROCHLORIDE 150 MG CAP PO SCH ×3 (07:29→22:39)
[2023-06-13] MEDS: SPIRONOLACTONE 25 MG TAB PO SCH ×2 (07:29→19:05)
[2023-06-13] MEDS: CARVEDILOL 3.125 MG TAB PO SCH ×2 (07:29→22:00)
[2023-06-13] MEDS: ASPirin 81 mg TAB PO SCH (07:29)
[2023-06-13] MEDS: BUMETANIDE 2.5mg/10ml (0.25 mg/ml) INJ IV SCH ×2 (07:30→19:05)
[2023-06-13] MEDS: ENOXAPARIN SOD 40 MG/0.4 ML SYRINGE SC SCH ×2 (07:30→07:33)
[2023-06-13] MEDS: SACUBITRIL-VALSARTAN 24mg/26mg TAB PO SCH ×2 (07:54→22:00)
[2023-06-13 07:57] VITALS: PULSE 98; RESP 19; O2SAT 98
[2023-06-13] MEDS: HYDROcodone-ACET 5/325MG TAB PO PRN (08:01)
[2023-06-13 08:04] LABS: Basophils # (auto) 0.1 10 ^3/uL (0-0.2); Basophils % (auto) 0.8 % (0.0-2.0); Eosinophils # (auto) 0.2 10 ^3/uL (0-0.8); Eosinophils % (auto) 3.3 % (0.0-7.0); Hematocrit 44.1 % (41.0-53.0); Hemoglobin 14.6 g/dL (13.5-17.5); Lymphocytes # (auto) 0.9 10 ^3/uL (0.4-5.4); Lymphocytes % (auto) 13.6 % (10.0-50.0); Mean Corpuscular Hemoglobin 32.2 pg (28.0-32.0); Mean Corpuscular Hgb Conc. 33.1 g/dL (32.0-36.0); Mean Corpuscular Volume 97.2 fL (80.0-100.0); Monocytes # (auto) 0.7 10 ^3/uL (0-1.3); Monocytes % (auto) 9.7 % (0.0-12.0); Neutrophils # (auto) 4.9 10 ^3/uL (1.6-8.6); Neutrophils % (auto) 72.6 % (37.0-80.0); Nucleated Red Blood Cells % 0.1 %; Red Blood Cells 4.54 10^6/uL (4.5-5.90); White Blood Cell 6.8 10^3/uL (4.4-10.8)
[2023-06-13 08:04] LABS: Rapid Influenza A Negative (Negative); Rapid Influenza B Negative (Negative)
[2023-06-13 08:05] LABS: COVID19 ANTIGEN SOFIA FIA NEGATIVE (NEGATIVE)
[2023-06-13] MEDS ORDERED: NITROGLYCERIN 0.4 MG SL TAB SL ONE (10:00)
[2023-06-13] MEDS ORDERED: SODIUM CHLORIDE 0.9% 250 ML IV ONE (13:30)
[2023-06-13] MEDS: guaiFENesin-DM 100/10mg/5ml SYR PO PRN ×2 (13:42→19:05)
[2023-06-13] MEDS: IPRATROPIUM BROM 0.5 MG/2.5ML INH SOL NEB PRN (15:55)
[2023-06-13] MEDS: ALBUTEROL MEDNEB 2.5 mg/3ml NEB NEB PRN (15:55)
[2023-06-13 15:56] VITALS: PULSE 96; RESP 20; O2SAT 94
[2023-06-13 16:06] VITALS: PULSE 98; RESP 20; O2SAT 99
[2023-06-13 16:12] VITALS: BP 97/67; PULSE 90; RESP 22; TEMP 98; O2SAT 97
[2023-06-13] MEDS: ONDANSETRON HCL 4 MG/2 ML VIAL IV PRN (16:48)
[2023-06-13 19:32] VITALS: O2SAT 96
[2023-06-13 19:51] VITALS: PULSE 98; RESP 19; O2SAT 98
[2023-06-13] MEDS: ATORVASTATIN 20 MG TAB PO SCH (22:41)
[2023-06-13] MEDS: NOREPINEPHRINE 8 MG/250ML KIT 250 ML IV SCH (23:30)
[2023-06-14] VITALS (11 sets, daily range): BP systolic 101; BP diastolic 73; PULSE 86–98; RESP 13–20; TEMP 97.3; O2SAT 92–100
[2023-06-14] MEDS: guaiFENesin-DM 100/10mg/5ml SYR PO PRN ×3 (03:21→18:32)
[2023-06-14] MEDS: ALBUTEROL MEDNEB 2.5 mg/3ml NEB NEB PRN ×3 (03:33→20:16)
[2023-06-14] MEDS: IPRATROPIUM BROM 0.5 MG/2.5ML INH SOL NEB PRN ×3 (03:33→20:16)
[2023-06-14] MEDS: SPIRONOLACTONE 25 MG TAB PO SCH ×2 (06:22→18:33)
[2023-06-14] MEDS ORDERED: BUMETANIDE 1mg/4ml VIAL (0.25mg/ml) ONE (06:26)
[2023-06-14] MEDS: ACCU-CHEK COMFORT CURVE STRIP VI SCH ×4 (06:58→21:27)
[2023-06-14] MEDS: InsuLIN REG 1unit/0.01ml Soln (100units/ml) SC SCH ×4 (06:58→21:27)
[2023-06-14] MEDS: BUMETANIDE 2.5mg/10ml (0.25 mg/ml) INJ IV SCH ×3 (07:03→18:48)
[2023-06-14] MEDS: MEXILETINE HYDROCHLORIDE 150 MG CAP PO SCH ×3 (07:55→21:30)
[2023-06-14] MEDS: CARVEDILOL 3.125 MG TAB PO SCH ×2 (08:54→21:28)
[2023-06-14] MEDS: ENOXAPARIN SOD 40 MG/0.4 ML SYRINGE SC SCH (08:54)
[2023-06-14] MEDS: SACUBITRIL-VALSARTAN 24mg/26mg TAB PO SCH ×2 (09:44→21:28)
[2023-06-14] MEDS: ASPirin 81 mg TAB PO SCH (09:44)
[2023-06-14] MEDS: HYDROcodone-ACET 5/325MG TAB PO PRN (10:48)
[2023-06-14] MEDS: NOREPINEPHRINE 8 MG/250ML KIT 250 ML IV SCH (15:45)
[2023-06-14] MEDS: ONDANSETRON HCL 4 MG/2 ML VIAL IV PRN (16:42)
[2023-06-14] MEDS: ATORVASTATIN 20 MG TAB PO SCH (21:28)
[2023-06-14] MEDS: TEMAZEPAM 15 MG CAP PO PRN (21:34)
[2023-06-15] VITALS (12 sets, daily range): BP systolic 86–117; BP diastolic 59–80; PULSE 71–94; RESP 16–20; TEMP 97.4–98.6; O2SAT 90–100
[2023-06-15] MEDS: guaiFENesin-DM 100/10mg/5ml SYR PO PRN ×4 (01:23→21:15)
[2023-06-15] MEDS: IPRATROPIUM BROM 0.5 MG/2.5ML INH SOL NEB PRN ×3 (04:27→19:34)
[2023-06-15] MEDS: ALBUTEROL MEDNEB 2.5 mg/3ml NEB NEB PRN ×3 (04:27→19:34)
[2023-06-15] MEDS: SPIRONOLACTONE 25 MG TAB PO SCH ×2 (05:59→17:11)
[2023-06-15] MEDS: BUMETANIDE 2.5mg/10ml (0.25 mg/ml) INJ IV SCH ×2 (06:00→17:12)
[2023-06-15] MEDS: InsuLIN REG 1unit/0.01ml Soln (100units/ml) SC SCH ×4 (06:00→21:02)
[2023-06-15] MEDS: ACCU-CHEK COMFORT CURVE STRIP VI SCH ×4 (06:00→21:16)
[2023-06-15] MEDS: MEXILETINE HYDROCHLORIDE 150 MG CAP PO SCH ×3 (06:34→21:16)
[2023-06-15] MEDS: ASPirin 81 mg TAB PO SCH (09:34)
[2023-06-15] MEDS: SACUBITRIL-VALSARTAN 24mg/26mg TAB PO SCH ×2 (09:34→21:15)
[2023-06-15] MEDS: CARVEDILOL 3.125 MG TAB PO SCH ×2 (09:35→21:16)
[2023-06-15] MEDS: ENOXAPARIN SOD 40 MG/0.4 ML SYRINGE SC SCH ×2 (09:35→09:38)
[2023-06-15] MEDS: NOREPINEPHRINE 8 MG/250ML KIT 250 ML IV SCH (15:45)
[2023-06-15] MEDS: HYDROcodone-ACET 5/325MG TAB PO PRN (16:46)
[2023-06-15] MEDS: ONDANSETRON HCL 4 MG/2 ML VIAL IV PRN ×2 (17:03→22:03)
[2023-06-15] MEDS: TEMAZEPAM 15 MG CAP PO PRN (21:15)
[2023-06-15] MEDS: ATORVASTATIN 20 MG TAB PO SCH (21:16)
[2023-06-16] VITALS (15 sets, daily range): BP systolic 91–130; BP diastolic 57–71; PULSE 44–94; RESP 14–20; TEMP 97.3–98.7; O2SAT 14–100
[2023-06-16] MEDS: guaiFENesin-DM 100/10mg/5ml SYR PO PRN ×3 (02:04→16:23)
[2023-06-16] MEDS: SPIRONOLACTONE 25 MG TAB PO SCH ×2 (06:13→17:32)
[2023-06-16] MEDS: MEXILETINE HYDROCHLORIDE 150 MG CAP PO SCH ×3 (06:13→21:45)
[2023-06-16] MEDS: InsuLIN REG 1unit/0.01ml Soln (100units/ml) SC SCH ×4 (06:14→21:48)
[2023-06-16] MEDS: BUMETANIDE 2.5mg/10ml (0.25 mg/ml) INJ IV SCH ×2 (06:14→17:32)
[2023-06-16] MEDS: ACCU-CHEK COMFORT CURVE STRIP VI SCH ×4 (06:14→21:48)
[2023-06-16] MEDS: IPRATROPIUM BROM 0.5 MG/2.5ML INH SOL NEB PRN ×2 (07:56→15:20)
[2023-06-16] MEDS: ALBUTEROL MEDNEB 2.5 mg/3ml NEB NEB PRN ×2 (07:56→15:20)
[2023-06-16] MEDS: SACUBITRIL-VALSARTAN 24mg/26mg TAB PO SCH ×2 (09:35→21:45)
[2023-06-16] MEDS: ONDANSETRON HCL 4 MG/2 ML VIAL IV PRN (09:35)
[2023-06-16] MEDS: CARVEDILOL 3.125 MG TAB PO SCH ×2 (09:35→21:46)
[2023-06-16] MEDS: ASPirin 81 mg TAB PO SCH (09:35)
[2023-06-16] MEDS: ENOXAPARIN SOD 40 MG/0.4 ML SYRINGE SC SCH (09:36)
[2023-06-16] MEDS: NOREPINEPHRINE 8 MG/250ML KIT 250 ML IV SCH (15:45)
[2023-06-16] MEDS: predniSONE 20 MG TAB PO SCH (21:45)
[2023-06-16] MEDS: ATORVASTATIN 20 MG TAB PO SCH (21:45)
[2023-06-16] MEDS: HYDROcodone-ACET 5/325MG TAB PO PRN (21:53)
[2023-06-16] MEDS: BUDESONIDE (INHALATION) 0.5 MG/2 ML NEB NEB SCH (22:43)
[2023-06-17] VITALS (12 sets, daily range): BP systolic 97–104; BP diastolic 63–74; PULSE 75–97; RESP 16–22; TEMP 97.3–98; O2SAT 89–99
[2023-06-17] MEDS: MEXILETINE HYDROCHLORIDE 150 MG CAP PO SCH ×2 (05:39→13:43)
[2023-06-17] MEDS: BUMETANIDE 2.5mg/10ml (0.25 mg/ml) INJ IV SCH ×2 (05:39→17:07)
[2023-06-17] MEDS: SPIRONOLACTONE 25 MG TAB PO SCH ×2 (05:39→17:06)
[2023-06-17] MEDS: ACCU-CHEK COMFORT CURVE STRIP VI SCH ×3 (06:29→16:55)
[2023-06-17] MEDS: InsuLIN REG 1unit/0.01ml Soln (100units/ml) SC SCH ×3 (06:31→17:17)
[2023-06-17] MEDS: IPRATROPIUM BROM 0.5 MG/2.5ML INH SOL NEB PRN ×2 (07:26→13:10)
[2023-06-17] MEDS: ALBUTEROL MEDNEB 2.5 mg/3ml NEB NEB PRN ×2 (07:26→13:10)
[2023-06-17] MEDS: BUDESONIDE (INHALATION) 0.5 MG/2 ML NEB NEB SCH (07:26)
[2023-06-17] MEDS: predniSONE 20 MG TAB PO SCH (10:26)
[2023-06-17] MEDS: ENOXAPARIN SOD 40 MG/0.4 ML SYRINGE SC SCH (10:26)
[2023-06-17] MEDS: CARVEDILOL 3.125 MG TAB PO SCH (10:27)
[2023-06-17] MEDS: ASPirin 81 mg TAB PO SCH (10:27)
[2023-06-17] MEDS: SACUBITRIL-VALSARTAN 24mg/26mg TAB PO SCH (10:27)
[2023-06-17] MEDS: NOREPINEPHRINE 8 MG/250ML KIT 250 ML IV SCH (13:42)
[2023-06-17] MEDS: guaiFENesin-DM 100/10mg/5ml SYR PO PRN (14:48)
[2023-06-17] MEDS: ONDANSETRON HCL 4 MG/2 ML VIAL IV PRN (17:10)
[2023-06-17] MEDS ORDERED: IPRATROPIUM BROM 0.5 MG/2.5ML INH SOL ONE (21:46)
== END 2023-06-17 18:00 | disposition home or self-care (01) | DRG 194 ==
LOC: ER 18:42 → EDBD 18:42 → TELE 06-13 01:45 → TELE-WESTW 06-14 18:13
PROVIDERS: ADMIT Nurse Practitioner; ATTEND Internal Medicine
DX: I11.0 Hypertensive heart disease with heart failure (principal); J96.21 Acute and chronic respiratory failure with hypoxia; E78.00 Pure hypercholesterolemia, unspecified; E11.9 Type 2 diabetes mellitus without complications; I25.10 Atherosclerotic heart disease of native coronary artery without angina pectoris; I25.5 Ischemic cardiomyopathy; Z20.822 Contact with and (suspected) exposure to COVID-19; I50.23 Acute on chronic systolic (congestive) heart failure; Z82.3 Family history of stroke; Z82.49 Family history of ischemic heart disease and other diseases of the circulatory system; Z83.3 Family history of diabetes mellitus; Z86.711 Personal history of pulmonary embolism; Z91.013 Allergy to seafood; Z95.810 Presence of automatic (implantable) cardiac defibrillator; Z98.61 Coronary angioplasty status
CPT/HCPCS: 36415; 71045; 80053; 80307; 80320; 81001; 82962; 83735; 83880; 84443; 84484; 85025; 85610; 85730; 87081; 87426; 87804; 93005; 94640; G0378; J1815; J2405

== ENCOUNTER 2023-06-27 22:02 | Inpatient (IN) | payer MEDICAID ==
[~2023-06-27] VITALS: Ht 182.9 cm; Wt 87.2 kg
[~2023-06-27 22:02] MED LIST changes: -DOXY1CAP57 PO; -PANT40TA2 PO
[2023-06-27 22:32] LABS: Basophils # (auto) 0.1 10 ^3/uL (0-0.2); Basophils % (auto) 0.9 % (0.0-2.0); Eosinophils # (auto) 0.3 10 ^3/uL (0-0.8); Eosinophils % (auto) 4.4 % (0.0-7.0); Hematocrit 45.1 % (41.0-53.0); Lymphocytes # (auto) 0.9 10 ^3/uL (0.4-5.4); Lymphocytes % (auto) 14.1 % (10.0-50.0); Mean Corpuscular Hemoglobin 32.3 pg (28.0-32.0); Mean Corpuscular Hgb Conc. 33.2 g/dL (32.0-36.0); Mean Corpuscular Volume 97.3 fL (80.0-100.0); Monocytes # (auto) 0.6 10 ^3/uL (0-1.3); Monocytes % (auto) 9.3 % (0.0-12.0); Neutrophils # (auto) 4.6 10 ^3/uL (1.6-8.6); Neutrophils % (auto) 71.3 % (37.0-80.0); Nucleated Red Blood Cells % 0.1 %; Red Blood Cells 4.64 10^6/uL (4.5-5.90); White Blood Cell 6.5 10^3/uL (4.4-10.8)
[2023-06-27 22:45] LABS: INR 1.34 (0.9-1.15); Partial Thromboplastin Time 29.8 SEC (24.5-34.5); Prothrombin Time 13.8 sec (9.3-11.8)
[2023-06-27 22:54] LABS: Alanine Aminotransferase 20 U/L (7-40); Albumin 4.5 g/dL (3.2-4.8); Alkaline Phosphatase 164 U/L (46-116); Anion Gap 4 (5-15); Aspartate Aminotransferase 18 U/L (13-40); BUN/Creatinine Ratio 15.1 (10.0-20.0); Blood Urea Nitrogen 19 mg/dL (9-23); Calcium 9.4 mg/dL (8.7-10.4); Carbon Dioxide 31 mmol/L (20-30); Chloride 99 mmol/L (98-107); Glucose 92 mg/dL (74-106); Magnesium 2.1 mg/dL (1.6-2.6); Potassium 4.6 mmol/L (3.5-5.1); Sodium 134 mmol/L (136-145)
[2023-06-27 22:55] LABS: Bilirubin, Total 1.7 mg/dL (0.2-1.0); Total Protein 7.1 g/dL (5.7-8.2)
[2023-06-27 23:00] VITALS: PULSE 102; RESP 19; O2SAT 97
[2023-06-27] MEDS ORDERED: ONDANSETRON HCL 4 MG/2 ML VIAL IV ONE (23:25)
[2023-06-27] MEDS ORDERED: MORPHINE SULFATE INJ 2 MG/ml SYRG IV ONE (23:30)
[2023-06-28] VITALS (11 sets, daily range): BP systolic 96–156; BP diastolic 60–82; PULSE 55–98; RESP 16–18; TEMP 97.3–98.6; O2SAT 94–98
[2023-06-28 02:04] LABS: Amphetamine Screen, Urine Neg (NEGATIVE); Benzodiazephine Screen, Urine Neg (NEGATIVE)
[2023-06-28 02:05] LABS: Barbiturate Scree,Urine Neg (NEGATIVE); Cannabinoid Screen, Urine Neg (NEGATIVE); Cocaine Screen, Urine Neg (NEGATIVE); Opiate Scree,Urine Neg (NEGATIVE); Phencyclidine Screen, Urine Neg (NEGATIVE)
[2023-06-28 02:23] LABS: Urine Bacteria NONE SEEN /hpf (None Seen); Urine Blood TRACE /uL (Negative); Urine Clarity Clear (Clear); Urine Color Yellow (Yellow); Urine Hyaline Cast FEW /lpf (0 - 2); Urine Mucus FEW (None Seen); Urine Protein, UAD 1+ (Negative); Urine Specific Gravity 1.014 (1.001-1.035); Urine Urobilinogen Normal (Negative); Urine WBC 1 /hpf (0 - 3); Urine pH 5.5 (5.0-8.0)
[2023-06-28] MEDS ORDERED: BUMETANIDE 2.5mg/10ml (0.25 mg/ml) INJ IV ONE (02:45)
[2023-06-28] MEDS ORDERED: NITROGLYCERIN 0.4 MG SL TAB SL PRN (03:45)
[2023-06-28] MEDS ORDERED: ALBUTEROL SULF 2.5 MG/0.5ML(0.5%) NEB SOLN NEB PRN (03:45)
[2023-06-28] MEDS ORDERED: DEXTROSE (50%) 50ML SYRG IV PRN (03:45)
[2023-06-28] MEDS ORDERED: ONDANSETRON HCL 4 MG/2 ML VIAL IV PRN (03:45)
[2023-06-28] MEDS ORDERED: ACETAMINOPHEN 325 MG TAB PO PRN (03:45)
[2023-06-28] MEDS ORDERED: FUROSEMIDE 20 MG/2 ML VIAL IV SCH (06:00)
[2023-06-28] MEDS: SPIRONOLACTONE 25 MG TAB PO SCH ×2 (06:09→17:38)
[2023-06-28] MEDS: ACCU-CHEK COMFORT CURVE STRIP VI SCH ×4 (06:45→21:06)
[2023-06-28] MEDS: InsuLIN REG 1unit/0.01ml Soln (100units/ml) SC SCH ×4 (06:45→21:06)
[2023-06-28] MEDS: SACUBITRIL-VALSARTAN 24mg/26mg TAB PO SCH ×2 (10:00→21:03)
[2023-06-28] MEDS: ENOXAPARIN SOD 40 MG/0.4 ML SYRINGE SC SCH (10:24)
[2023-06-28] MEDS: CARVEDILOL 3.125 MG TAB PO SCH ×2 (11:00→21:08)
[2023-06-28] MEDS: ASPirin 81 mg TAB PO SCH (11:00)
[2023-06-28] MEDS ORDERED: metOLazone 5 MG TAB PO ONE (14:30)
[2023-06-28] MEDS: BUMETANIDE 2.5mg/10ml (0.25 mg/ml) INJ IV SCH ×2 (15:23→17:38)
[2023-06-28] MEDS: DOBUTamine 1000MCG/ML 250 ML IV SCH (18:35)
[2023-06-28] MEDS: ATORVASTATIN 20 MG TAB PO SCH (21:03)
[2023-06-28] MEDS: MORPHINE SULFATE INJ 2 MG/ml SYRG IV PRN (21:41)
[2023-06-28] MEDS ORDERED: HYDROcodone-ACET 5/325MG TAB PO PRN (22:45)
[2023-06-29] VITALS (8 sets, daily range): BP systolic 94–105; BP diastolic 57–84; PULSE 66–83; RESP 16–20; TEMP 97–98.3; O2SAT 94–100
[2023-06-29 05:45] LABS: Basophils # (auto) 0 10 ^3/uL (0-0.2); Basophils % (auto) 0.7 % (0.0-2.0); Eosinophils # (auto) 0.3 10 ^3/uL (0-0.8); Eosinophils % (auto) 3.8 % (0.0-7.0); Hematocrit 46.5 % (41.0-53.0); Hemoglobin 15.7 g/dL (13.5-17.5); Lymphocytes # (auto) 0.9 10 ^3/uL (0.4-5.4); Lymphocytes % (auto) 13.6 % (10.0-50.0); Mean Corpuscular Hemoglobin 32.9 pg (28.0-32.0); Mean Corpuscular Hgb Conc. 33.8 g/dL (32.0-36.0); Mean Corpuscular Volume 97.3 fL (80.0-100.0); Monocytes # (auto) 0.6 10 ^3/uL (0-1.3); Monocytes % (auto) 8.6 % (0.0-12.0); Neutrophils # (auto) 4.9 10 ^3/uL (1.6-8.6); Neutrophils % (auto) 73.3 % (37.0-80.0); Nucleated Red Blood Cells % 0.1 %; Red Blood Cells 4.78 10^6/uL (4.5-5.90); Red Cell Distribution Width 16.5 % (11.8-14.3); White Blood Cell 6.6 10^3/uL (4.4-10.8)
[2023-06-29 06:02] LABS: Alanine Aminotransferase 19 U/L (7-40); Albumin 4.6 g/dL (3.2-4.8); Alkaline Phosphatase 167 U/L (46-116); Anion Gap 11 (5-15); Aspartate Aminotransferase 22 U/L (13-40); BUN/Creatinine Ratio 17.6 (10.0-20.0); Bilirubin, Total 2.2 mg/dL (0.2-1.0); Blood Urea Nitrogen 23 mg/dL (9-23); Carbon Dioxide 28 mmol/L (20-30); Chloride 91 mmol/L (98-107); Glucose 133 mg/dL (74-106); Potassium 3.6 mmol/L (3.5-5.1); Sodium 130 mmol/L (136-145); Total Protein 7.3 g/dL (5.7-8.2)
[2023-06-29] MEDS: ACCU-CHEK COMFORT CURVE STRIP VI SCH ×4 (06:33→21:51)
[2023-06-29] MEDS: BUMETANIDE 2.5mg/10ml (0.25 mg/ml) INJ IV SCH ×2 (07:01→18:28)
[2023-06-29] MEDS: InsuLIN REG 1unit/0.01ml Soln (100units/ml) SC SCH ×4 (07:02→21:57)
[2023-06-29] MEDS: SPIRONOLACTONE 25 MG TAB PO SCH ×2 (07:03→18:28)
[2023-06-29] MEDS: metOLazone 5 MG TAB PO SCH (10:00)
[2023-06-29] MEDS: CARVEDILOL 3.125 MG TAB PO SCH ×2 (10:00→21:51)
[2023-06-29] MEDS: SACUBITRIL-VALSARTAN 24mg/26mg TAB PO SCH ×2 (11:50→21:51)
[2023-06-29] MEDS: ASPirin 81 mg TAB PO SCH (11:50)
[2023-06-29] MEDS: ENOXAPARIN SOD 40 MG/0.4 ML SYRINGE SC SCH (11:50)
[2023-06-29] MEDS: DOBUTamine 1000MCG/ML 250 ML IV SCH (12:52)
[2023-06-29] MEDS: MORPHINE SULFATE INJ 2 MG/ml SYRG IV PRN (13:30)
[2023-06-29] MEDS: ATORVASTATIN 20 MG TAB PO SCH (21:50)
[2023-06-30] VITALS (7 sets, daily range): BP systolic 97–108; BP diastolic 55–60; PULSE 71–89; RESP 17–20; TEMP 97.1–98.3; O2SAT 95–97
[2023-06-30] MEDS: DOBUTamine 1000MCG/ML 250 ML IV SCH (04:43)
[2023-06-30] MEDS: BUMETANIDE 2.5mg/10ml (0.25 mg/ml) INJ IV SCH ×2 (06:00→17:41)
[2023-06-30] MEDS: SPIRONOLACTONE 25 MG TAB PO SCH ×2 (06:00→17:41)
[2023-06-30 06:31] LABS: Chloride 89 mmol/L (98-107); Potassium 3.6 mmol/L (3.5-5.1); Sodium 126 mmol/L (136-145)
[2023-06-30 06:32] LABS: Anion Gap 8 (5-15); Calcium 9.4 mg/dL (8.7-10.4); Carbon Dioxide 29 mmol/L (20-30)
[2023-06-30] MEDS: ACCU-CHEK COMFORT CURVE STRIP VI SCH ×4 (06:33→23:02)
[2023-06-30] MEDS: InsuLIN REG 1unit/0.01ml Soln (100units/ml) SC SCH ×4 (06:34→23:02)
[2023-06-30 06:37] LABS: BUN/Creatinine Ratio 23.6 (10.0-20.0); Glucose 107 mg/dL (74-106)
[2023-06-30 06:39] LABS: Blood Urea Nitrogen 35 mg/dL (9-23)
[2023-06-30] MEDS: CARVEDILOL 3.125 MG TAB PO SCH ×2 (10:00→22:46)
[2023-06-30] MEDS: metOLazone 5 MG TAB PO SCH (10:00)
[2023-06-30] MEDS: ASPirin 81 mg TAB PO SCH (10:34)
[2023-06-30] MEDS: SACUBITRIL-VALSARTAN 24mg/26mg TAB PO SCH (10:34)
[2023-06-30] MEDS: ENOXAPARIN SOD 40 MG/0.4 ML SYRINGE SC SCH (10:35)
[2023-06-30] MEDS: MIDODRINE HCL 10 MG TAB PO SCH (22:57)
[2023-06-30] MEDS: ATORVASTATIN 20 MG TAB PO SCH (22:58)
[2023-07-01] VITALS (9 sets, daily range): BP systolic 77–124; BP diastolic 47–67; PULSE 64–76; RESP 16–19; TEMP 97.7–98.6; O2SAT 94–99
[2023-07-01] MEDS ORDERED: SODIUM CHLORIDE 0.9% 250 ML IV ONE (00:45)
[2023-07-01] MEDS ORDERED: ALBUMIN 25% 100 ML IV ONE (03:00)
[2023-07-01] MEDS: ACCU-CHEK COMFORT CURVE STRIP VI SCH ×4 (06:39→22:30)
[2023-07-01] MEDS: InsuLIN REG 1unit/0.01ml Soln (100units/ml) SC SCH ×4 (06:39→23:38)
[2023-07-01] MEDS: SPIRONOLACTONE 25 MG TAB PO SCH ×2 (07:00→17:44)
[2023-07-01] MEDS: BUMETANIDE 2.5mg/10ml (0.25 mg/ml) INJ IV SCH ×2 (07:00→17:44)
[2023-07-01 07:03] LABS: Calcium 9.1 mg/dL (8.7-10.4); Chloride 91 mmol/L (98-107); Potassium 3.7 mmol/L (3.5-5.1); Sodium 128 mmol/L (136-145)
[2023-07-01 07:04] LABS: Anion Gap 10 (5-15); Carbon Dioxide 27 mmol/L (20-30)
[2023-07-01 07:10] LABS: BUN/Creatinine Ratio 19.6 (10.0-20.0); Blood Urea Nitrogen 35 mg/dL (9-23); Glucose 134 mg/dL (74-106)
[2023-07-01] MEDS: MIDODRINE HCL 10 MG TAB PO SCH ×3 (07:16→17:55)
[2023-07-01] MEDS: CARVEDILOL 3.125 MG TAB PO SCH ×2 (10:00→22:00)
[2023-07-01] MEDS: ENOXAPARIN SOD 40 MG/0.4 ML SYRINGE SC SCH (10:22)
[2023-07-01] MEDS: ASPirin 81 mg TAB PO SCH (10:22)
[2023-07-01] MEDS: ATORVASTATIN 20 MG TAB PO SCH (23:41)
[2023-07-02] VITALS (7 sets, daily range): BP systolic 88–148; BP diastolic 56–73; PULSE 68–93; RESP 15–20; TEMP 97.6–98; O2SAT 96–100
[2023-07-02] MEDS: BUMETANIDE 2.5mg/10ml (0.25 mg/ml) INJ IV SCH ×2 (05:30→19:37)
[2023-07-02] MEDS: SPIRONOLACTONE 25 MG TAB PO SCH ×2 (05:31→18:12)
[2023-07-02] MEDS: ACCU-CHEK COMFORT CURVE STRIP VI SCH ×4 (05:49→21:30)
[2023-07-02] MEDS: InsuLIN REG 1unit/0.01ml Soln (100units/ml) SC SCH ×4 (05:50→21:39)
[2023-07-02] MEDS: MIDODRINE HCL 10 MG TAB PO SCH ×3 (05:50→18:12)
[2023-07-02 06:24] LABS: Chloride 96 mmol/L (98-107); Potassium 3.9 mmol/L (3.5-5.1); Sodium 132 mmol/L (136-145)
[2023-07-02 06:25] LABS: Anion Gap 8 (5-15); Calcium 9.6 mg/dL (8.5-10.1); Carbon Dioxide 28 mmol/L (20-30)
[2023-07-02 06:30] LABS: BUN/Creatinine Ratio 30.3 (10.0-20.0); Blood Urea Nitrogen 40 mg/dL (9-23); Glucose 119 mg/dL (74-106)
[2023-07-02] MEDS: CARVEDILOL 3.125 MG TAB PO SCH ×2 (10:00→21:31)
[2023-07-02] MEDS: ENOXAPARIN SOD 40 MG/0.4 ML SYRINGE SC SCH (11:29)
[2023-07-02] MEDS: ASPirin 81 mg TAB PO SCH (11:29)
[2023-07-02 14:49] LABS: COVID19 ANTIGEN SOFIA FIA NEGATIVE (NEGATIVE)
[2023-07-02] MEDS: ATORVASTATIN 20 MG TAB PO SCH (21:31)
[2023-07-03] VITALS (7 sets, daily range): BP systolic 94–127; BP diastolic 65–94; PULSE 71–109; RESP 8–20; TEMP 97.5–98.5; O2SAT 92–98
[2023-07-03] MEDS: MIDODRINE HCL 10 MG TAB PO SCH ×3 (06:27→18:07)
[2023-07-03] MEDS: SPIRONOLACTONE 25 MG TAB PO SCH (06:27)
[2023-07-03] MEDS: BUMETANIDE 2.5mg/10ml (0.25 mg/ml) INJ IV SCH (06:28)
[2023-07-03] MEDS: ACCU-CHEK COMFORT CURVE STRIP VI SCH ×4 (06:56→22:27)
[2023-07-03] MEDS: InsuLIN REG 1unit/0.01ml Soln (100units/ml) SC SCH ×4 (06:56→22:33)
[2023-07-03] MEDS: CARVEDILOL 3.125 MG TAB PO SCH ×2 (10:00→22:28)
[2023-07-03] MEDS: ENOXAPARIN SOD 40 MG/0.4 ML SYRINGE SC SCH (11:33)
[2023-07-03] MEDS: ASPirin 81 mg TAB PO SCH (11:33)
[2023-07-03] MEDS: ATORVASTATIN 20 MG TAB PO SCH (22:28)
[2023-07-04] VITALS (7 sets, daily range): BP systolic 101–121; BP diastolic 67–77; PULSE 78–103; RESP 17–20; TEMP 97.7–98.1; O2SAT 97–100
[2023-07-04] MEDS: MIDODRINE HCL 10 MG TAB PO SCH ×3 (06:22→17:13)
[2023-07-04] MEDS: InsuLIN REG 1unit/0.01ml Soln (100units/ml) SC SCH ×4 (06:26→21:32)
[2023-07-04] MEDS: ACCU-CHEK COMFORT CURVE STRIP VI SCH ×4 (07:04→21:32)
[2023-07-04] MEDS: ASPirin 81 mg TAB PO SCH (10:14)
[2023-07-04] MEDS: CARVEDILOL 3.125 MG TAB PO SCH ×2 (10:15→21:31)
[2023-07-04] MEDS: ENOXAPARIN SOD 40 MG/0.4 ML SYRINGE SC SCH (10:16)
[2023-07-04] MEDS: ATORVASTATIN 20 MG TAB PO SCH (21:31)
[2023-07-04] MEDS ORDERED: MELATONIN 5 MG TAB PO SCH (22:00)
[2023-07-05 05:00] VITALS: BP 94/63; PULSE 93; RESP 20; TEMP 97.7; O2SAT 95
[2023-07-05] MEDS: MIDODRINE HCL 10 MG TAB PO SCH (06:03)
[2023-07-05] MEDS: InsuLIN REG 1unit/0.01ml Soln (100units/ml) SC SCH (06:05)
[2023-07-05] MEDS: ACCU-CHEK COMFORT CURVE STRIP VI SCH (06:05)
[2023-07-05 08:00] VITALS: BP 109/80; PULSE 95; PULSE 98; RESP 19; TEMP 98.1
[2023-07-05 09:00] VITALS: BP 109/80; PULSE 95; RESP 19; TEMP 98.1; O2SAT 96
[2023-07-05] MEDS: CARVEDILOL 3.125 MG TAB PO SCH (10:00)
[2023-07-05] MEDS: ASPirin 81 mg TAB PO SCH (10:00)
[2023-07-05] MEDS: ENOXAPARIN SOD 40 MG/0.4 ML SYRINGE SC SCH (10:00)
[2023-07-05] MEDS ORDERED: MELATONIN 5 MG TAB PO ONE (22:00)
== END 2023-07-05 10:35 | disposition home or self-care (01) | DRG 194 ==
LOC: EDBD 22:02 → ER 22:02 → TELE 06-28 03:42 → TELE-CENTR 06-28 08:49
PROVIDERS: ADMIT Nurse Practitioner; ATTEND Family Medicine
DX: I13.0 Hypertensive heart and chronic kidney disease with heart failure and stage 1 through stage 4 chronic kidney disease, or unspecified chronic kidney disease (principal); Z76.82 Awaiting organ transplant status; I95.9 Hypotension, unspecified; I42.8 Other cardiomyopathies; E11.22 Type 2 diabetes mellitus with diabetic chronic kidney disease; I50.23 Acute on chronic systolic (congestive) heart failure; N18.9 Chronic kidney disease, unspecified; E78.00 Pure hypercholesterolemia, unspecified; Z82.3 Family history of stroke; Z82.49 Family history of ischemic heart disease and other diseases of the circulatory system; Z83.3 Family history of diabetes mellitus; Z86.711 Personal history of pulmonary embolism; Z87.891 Personal history of nicotine dependence; Z91.013 Allergy to seafood; Z91.199 Patient's noncompliance with other medical treatment and regimen due to unspecified reason; Z95.5 Presence of coronary angioplasty implant and graft; Z95.810 Presence of automatic (implantable) cardiac defibrillator
CPT/HCPCS: 36415; 71045; 80048; 80053; 80307; 81001; 82962; 83690; 83735; 83880; 84484; 85025; 85379; 85610; 85730; 87081; 87426; 93005; 96374; 96375; 96376; G0378; J1815; J2405; P9047

== ENCOUNTER 2023-08-11 20:24 | Inpatient (IN) | payer MEDICAID ==
[~2023-08-11] VITALS: Ht 182.9 cm; Wt 83.7 kg
[2023-08-11 20:53] LABS: Basophils # (auto) 0 10 ^3/uL (0-0.2); Basophils % (auto) 0.9 % (0.0-2.0); Eosinophils # (auto) 0.1 10 ^3/uL (0-0.8); Eosinophils % (auto) 1.2 % (0.0-7.0); Hematocrit 39.9 % (41.0-53.0); Hemoglobin 13.4 g/dL (13.5-17.5); Lymphocytes % (auto) 19.1 % (10.0-50.0); Mean Corpuscular Hemoglobin 32.9 pg (28.0-32.0); Mean Corpuscular Hgb Conc. 33.7 g/dL (32.0-36.0); Mean Corpuscular Volume 97.9 fL (80.0-100.0); Monocytes # (auto) 0.9 10 ^3/uL (0-1.3); Monocytes % (auto) 16.6 % (0.0-12.0); Neutrophils # (auto) 3.3 10 ^3/uL (1.6-8.6); Neutrophils % (auto) 62.2 % (37.0-80.0); Nucleated Red Blood Cells % 0.2 %; Red Blood Cells 4.07 10^6/uL (4.5-5.90); Red Cell Distribution Width 16.2 % (11.8-14.3); White Blood Cell 5.3 10^3/uL (4.4-10.8)
[2023-08-11 21:05] LABS: Chloride 101 mmol/L (98-107); Potassium 4.2 mmol/L (3.5-5.1); Sodium 134 mmol/L (136-145)
[2023-08-11 21:06] LABS: Anion Gap 8 (5-15); Carbon Dioxide 25 mmol/L (20-30)
[2023-08-11 21:11] LABS: Blood Urea Nitrogen 21 mg/dL (9-23); Glucose 129 mg/dL (74-106)
[2023-08-12] MEDS ORDERED: FUROSEMIDE 40 MG/4 ML VIAL IV ONE (00:30)
[2023-08-12] MEDS ORDERED: DOCUSATE SOD 100 MG CAP PO PRN (03:30)
[2023-08-12] MEDS ORDERED: DEXTROSE (50%) 50ML SYRG IV PRN (03:30)
[2023-08-12] MEDS ORDERED: ACETAMINOPHEN 325 MG TAB PO PRN (03:30)
[2023-08-12] MEDS: HYDROcodone-ACET 5/325MG TAB PO PRN ×2 (04:19→13:19)
[2023-08-12 05:58] LABS: Hematocrit 42.6 % (41.0-53.0); Hemoglobin 14.1 g/dL (13.5-17.5); Mean Corpuscular Hemoglobin 32.8 pg (28.0-32.0); Mean Corpuscular Hgb Conc. 33.1 g/dL (32.0-36.0); Mean Corpuscular Volume 99.1 fL (80.0-100.0); Red Cell Distribution Width 16.3 % (11.8-14.3); White Blood Cell 4.7 10^3/uL (4.4-10.8)
[2023-08-12] MEDS: SODIUM CHLOR 0.9% PF (SALINE LOCK) 10ML VIAL/SYR IV SCH ×3 (06:00→21:42)
[2023-08-12 06:02] LABS: Basophils % (manual) 0 (0.0-2.0); Blast Cells 0; Metamyelocytes % 0; Reactive Lymphocytes 0
[2023-08-12 06:29] LABS: Alanine Aminotransferase 79 U/L (7-40); Albumin 4.3 g/dL (3.2-4.8); Alkaline Phosphatase 147 U/L (46-116); Anion Gap 7 (5-15); Aspartate Aminotransferase 66 U/L (13-40); BUN/Creatinine Ratio 16.9 (10.0-20.0); Blood Urea Nitrogen 24 mg/dL (9-23); Calcium 9.3 mg/dL (8.7-10.4); Carbon Dioxide 27 mmol/L (20-30); Chloride 99 mmol/L (98-107); Glucose 79 mg/dL (74-106); Potassium 4.2 mmol/L (3.5-5.1); Sodium 133 mmol/L (136-145)
[2023-08-12 06:30] LABS: Bilirubin, Total 2.8 mg/dL (0.2-1.0); Total Protein 6.9 g/dL (5.7-8.2)
[2023-08-12] MEDS ORDERED: MORPHINE SULFATE INJ 2 MG/ml SYRG IV PRN (07:30)
[2023-08-12] MEDS ORDERED: NITROGLYCERIN 0.4 MG SL TAB SL PRN (07:30)
[2023-08-12 07:55] LABS: Band Neutrophils % (manual) 1; Eosinophils % (manual) 1 (0-7); Lymphocytes % (manual) 16 (10.0-50.0); Monocytes % (manual) 18 (0-12); Myelocytes % 1; Promyelocytes % 6
[2023-08-12 07:56] LABS: Giant Platelets Few; Platelet Estimate Decreased
[2023-08-12] MEDS: InsuLIN REG 1unit/0.01ml Soln (100units/ml) SC SCH ×4 (09:20→22:00)
[2023-08-12] MEDS: ACCU-CHEK COMFORT CURVE STRIP VI SCH ×4 (09:20→21:42)
[2023-08-12 09:24] VITALS: O2SAT 100
[2023-08-12] MEDS: ASPirin 81 mg TAB PO SCH (10:24)
[2023-08-12] MEDS: SPIRONOLACTONE 25 MG TAB PO SCH (10:24)
[2023-08-12] MEDS: BUMETANIDE 2.5mg/10ml (0.25 mg/ml) INJ IV SCH (17:43)
[2023-08-12] MEDS: ONDANSETRON HCL 4 MG/2 ML VIAL IV PRN ×2 (17:59→22:07)
[2023-08-12 19:50] VITALS: RESP 21; O2SAT 99
[2023-08-12] MEDS: ATORVASTATIN 20 MG TAB PO SCH (21:41)
[2023-08-13 05:59] LABS: Basophils # (auto) 0 10 ^3/uL (0-0.2); Basophils % (auto) 0.7 % (0.0-2.0); Eosinophils # (auto) 0.1 10 ^3/uL (0-0.8); Eosinophils % (auto) 2.3 % (0.0-7.0); Hematocrit 40.3 % (41.0-53.0); Hemoglobin 13.5 g/dL (13.5-17.5); Lymphocytes # (auto) 0.9 10 ^3/uL (0.4-5.4); Lymphocytes % (auto) 17.4 % (10.0-50.0); Mean Corpuscular Hemoglobin 32.9 pg (28.0-32.0); Mean Corpuscular Hgb Conc. 33.5 g/dL (32.0-36.0); Mean Corpuscular Volume 98.5 fL (80.0-100.0); Monocytes # (auto) 0.7 10 ^3/uL (0-1.3); Monocytes % (auto) 14.8 % (0.0-12.0); Neutrophils # (auto) 3.2 10 ^3/uL (1.6-8.6); Neutrophils % (auto) 64.8 % (37.0-80.0); Nucleated Red Blood Cells % 0.2 %; Red Blood Cells 4.09 10^6/uL (4.5-5.90); Red Cell Distribution Width 16.2 % (11.8-14.3); White Blood Cell 4.9 10^3/uL (4.4-10.8)
[2023-08-13] MEDS: BUMETANIDE 2.5mg/10ml (0.25 mg/ml) INJ IV SCH ×3 (06:00→17:28)
[2023-08-13 06:10] LABS: Alanine Aminotransferase 117 U/L (7-40); Albumin 4.1 g/dL (3.2-4.8); Alkaline Phosphatase 138 U/L (46-116); Anion Gap 7 (5-15); Aspartate Aminotransferase 102 U/L (13-40); Bilirubin, Total 3.8 mg/dL (0.2-1.0); Blood Urea Nitrogen 24 mg/dL (9-23); Calcium 9.1 mg/dL (8.7-10.4); Carbon Dioxide 27 mmol/L (20-30); Chloride 99 mmol/L (98-107); Glucose 82 mg/dL (74-106); Magnesium 2.1 mg/dL (1.6-2.6); Potassium 4.3 mmol/L (3.5-5.1); Sodium 133 mmol/L (136-145)
[2023-08-13 06:11] LABS: Total Protein 6.6 g/dL (5.7-8.2)
[2023-08-13] MEDS: InsuLIN REG 1unit/0.01ml Soln (100units/ml) SC SCH ×4 (06:38→22:00)
[2023-08-13] MEDS: ACCU-CHEK COMFORT CURVE STRIP VI SCH ×4 (06:38→22:00)
[2023-08-13] MEDS: SODIUM CHLOR 0.9% PF (SALINE LOCK) 10ML VIAL/SYR IV SCH ×3 (06:38→23:15)
[2023-08-13 07:50] VITALS: PULSE 76; RESP 20; O2SAT 97
[2023-08-13] MEDS: SPIRONOLACTONE 25 MG TAB PO SCH (10:54)
[2023-08-13] MEDS: ASPirin 81 mg TAB PO SCH (10:54)
[2023-08-13] MEDS: HYDROcodone-ACET 5/325MG TAB PO PRN ×3 (10:55→23:14)
[2023-08-13] MEDS ORDERED: DOBUTamine 1000MCG/ML 250 ML IV SCH (11:45)
[2023-08-13] MEDS ORDERED: metOLazone 5 MG TAB PO ONE (12:00)
[2023-08-13 19:10] VITALS: BP 117/84; PULSE 74; RESP 18; TEMP 36.6
[2023-08-13] MEDS: DOBUTamine 1000MCG/ML 250 ML IV SCH (20:00)
[2023-08-13 22:00] VITALS: BP 110/71; PULSE 93; RESP 18; TEMP 98.2; O2SAT 98
[2023-08-13] MEDS: ATORVASTATIN 20 MG TAB PO SCH (23:15)
[2023-08-14 05:00] VITALS: BP 100/74; PULSE 56; RESP 20; TEMP 98.2; O2SAT 95
[2023-08-14] MEDS: InsuLIN REG 1unit/0.01ml Soln (100units/ml) SC SCH ×4 (05:20→21:43)
[2023-08-14] MEDS: SODIUM CHLOR 0.9% PF (SALINE LOCK) 10ML VIAL/SYR IV SCH ×3 (05:21→21:41)
[2023-08-14] MEDS: BUMETANIDE 2.5mg/10ml (0.25 mg/ml) INJ IV SCH ×2 (05:22→16:45)
[2023-08-14] MEDS: ACCU-CHEK COMFORT CURVE STRIP VI SCH ×4 (06:02→21:40)
[2023-08-14] MEDS ORDERED: metOLazone 5 MG TAB PO ONE (07:45)
[2023-08-14] MEDS: SPIRONOLACTONE 25 MG TAB PO SCH (08:55)
[2023-08-14] MEDS: ASPirin 81 mg TAB PO SCH (08:55)
[2023-08-14 09:00] VITALS: BP 110/75; PULSE 74; RESP 20; TEMP 97.9; O2SAT 99
[2023-08-14] MEDS: HYDROcodone-ACET 5/325MG TAB PO PRN ×2 (11:02→19:53)
[2023-08-14] MEDS: DOBUTamine 1000MCG/ML 250 ML IV SCH (12:52)
[2023-08-14 20:00] VITALS: BP 110/76; PULSE 104; PULSE 95; RESP 16; TEMP 98.1; O2SAT 95
[2023-08-14] MEDS ORDERED: BACLOFEN 10 MG TAB PO ONE (21:00)
[2023-08-14] MEDS: ATORVASTATIN 20 MG TAB PO SCH (21:36)
[2023-08-14 22:00] VITALS: BP 110/76; PULSE 95; RESP 16; TEMP 98.1; O2SAT 95
[2023-08-15] VITALS (7 sets, daily range): BP systolic 116–119; BP diastolic 68–87; PULSE 68–87; RESP 14–19; TEMP 97.3–98.4; O2SAT 95–100
[2023-08-15] MEDS: HYDROcodone-ACET 5/325MG TAB PO PRN ×3 (00:11→20:20)
[2023-08-15] MEDS: ACCU-CHEK COMFORT CURVE STRIP VI SCH ×4 (05:38→21:20)
[2023-08-15] MEDS: BUMETANIDE 2.5mg/10ml (0.25 mg/ml) INJ IV SCH ×2 (05:38→17:46)
[2023-08-15] MEDS: SODIUM CHLOR 0.9% PF (SALINE LOCK) 10ML VIAL/SYR IV SCH ×3 (05:38→21:19)
[2023-08-15] MEDS: InsuLIN REG 1unit/0.01ml Soln (100units/ml) SC SCH ×4 (06:13→21:22)
[2023-08-15] MEDS: ASPirin 81 mg TAB PO SCH (10:17)
[2023-08-15] MEDS: SPIRONOLACTONE 25 MG TAB PO SCH (10:17)
[2023-08-15] MEDS: DOBUTamine 1000MCG/ML 250 ML IV SCH (10:18)
[2023-08-15] MEDS ORDERED: BACLOFEN 10 MG TAB PO ONE (15:00)
[2023-08-15] MEDS ORDERED: HYDROcodone-ACET 5/325MG TAB PO PRN (15:00)
[2023-08-15] MEDS: BACLOFEN 10 MG TAB PO SCH (21:17)
[2023-08-15] MEDS: ATORVASTATIN 20 MG TAB PO SCH (21:17)
[2023-08-16] VITALS (7 sets, daily range): BP systolic 97–114; BP diastolic 52–79; PULSE 67–83; RESP 18–19; TEMP 97.3–97.6; O2SAT 92–100
[2023-08-16] MEDS: HYDROcodone-ACET 5/325MG TAB PO PRN ×4 (01:24→21:47)
[2023-08-16] MEDS: DOBUTamine 1000MCG/ML 250 ML IV SCH ×2 (01:39→10:48)
[2023-08-16] MEDS: BUMETANIDE 2.5mg/10ml (0.25 mg/ml) INJ IV SCH ×2 (05:53→17:49)
[2023-08-16] MEDS: SODIUM CHLOR 0.9% PF (SALINE LOCK) 10ML VIAL/SYR IV SCH ×3 (05:53→21:36)
[2023-08-16] MEDS: ACCU-CHEK COMFORT CURVE STRIP VI SCH ×4 (05:53→21:30)
[2023-08-16] MEDS: InsuLIN REG 1unit/0.01ml Soln (100units/ml) SC SCH ×4 (06:31→21:50)
[2023-08-16] MEDS: ASPirin 81 mg TAB PO SCH (09:52)
[2023-08-16] MEDS: SPIRONOLACTONE 25 MG TAB PO SCH (09:52)
[2023-08-16] MEDS: BACLOFEN 10 MG TAB PO SCH ×2 (09:52→21:31)
[2023-08-16] MEDS ORDERED: METO25TA93 PO ×2 (13:51→13:57)
[2023-08-16] MEDS ORDERED: IVAB1.7T PO (13:51)
[2023-08-16] MEDS ORDERED: LOSA25TA15 PO (13:57)
[2023-08-16] MEDS: ONDANSETRON HCL 4 MG/2 ML VIAL IV PRN (20:04)
[2023-08-16] MEDS: ATORVASTATIN 20 MG TAB PO SCH (21:31)
[2023-08-17] VITALS (7 sets, daily range): BP systolic 103–119; BP diastolic 71–80; PULSE 76–101; RESP 17–19; TEMP 97.4–97.6; O2SAT 94–99
[2023-08-17] MEDS: HYDROcodone-ACET 5/325MG TAB PO PRN ×2 (05:26→20:34)
[2023-08-17] MEDS: BUMETANIDE 2.5mg/10ml (0.25 mg/ml) INJ IV SCH ×2 (05:31→17:40)
[2023-08-17] MEDS: ACCU-CHEK COMFORT CURVE STRIP VI SCH ×4 (05:45→22:17)
[2023-08-17] MEDS: SODIUM CHLOR 0.9% PF (SALINE LOCK) 10ML VIAL/SYR IV SCH ×3 (05:45→21:35)
[2023-08-17] MEDS: InsuLIN REG 1unit/0.01ml Soln (100units/ml) SC SCH ×4 (05:48→21:46)
[2023-08-17] MEDS: DOBUTamine 1000MCG/ML 250 ML IV SCH ×2 (07:28→23:49)
[2023-08-17] MEDS: ASPirin 81 mg TAB PO SCH (09:43)
[2023-08-17] MEDS: BACLOFEN 10 MG TAB PO SCH ×2 (09:43→21:33)
[2023-08-17] MEDS: SPIRONOLACTONE 25 MG TAB PO SCH (09:43)
[2023-08-17] MEDS: ATORVASTATIN 20 MG TAB PO SCH (21:33)
[2023-08-17] MEDS: ONDANSETRON HCL 4 MG/2 ML VIAL IV PRN (23:19)
[2023-08-18 05:00] VITALS: BP 118/79; PULSE 90; RESP 16; TEMP 97.2; O2SAT 99
[2023-08-18] MEDS: BUMETANIDE 2.5mg/10ml (0.25 mg/ml) INJ IV SCH ×2 (06:12→18:36)
[2023-08-18] MEDS: SODIUM CHLOR 0.9% PF (SALINE LOCK) 10ML VIAL/SYR IV SCH ×3 (06:13→22:45)
[2023-08-18] MEDS: InsuLIN REG 1unit/0.01ml Soln (100units/ml) SC SCH ×4 (06:13→22:00)
[2023-08-18] MEDS: ACCU-CHEK COMFORT CURVE STRIP VI SCH ×4 (06:14→22:45)
[2023-08-18 08:00] VITALS: BP 102/73; PULSE 90; PULSE 94; RESP 16; TEMP 97.7; O2SAT 96
[2023-08-18] MEDS: BACLOFEN 10 MG TAB PO SCH ×2 (09:03→22:43)
[2023-08-18] MEDS: ONDANSETRON HCL 4 MG/2 ML VIAL IV PRN (09:03)
[2023-08-18] MEDS: SPIRONOLACTONE 25 MG TAB PO SCH (09:03)
[2023-08-18] MEDS: ASPirin 81 mg TAB PO SCH (09:04)
[2023-08-18 12:00] VITALS: BP 115/75; PULSE 95; RESP 18; TEMP 97.5; O2SAT 99
[2023-08-18 16:00] VITALS: BP 110/63; PULSE 94; RESP 18; TEMP 97.9; O2SAT 97
[2023-08-18] MEDS: DOBUTamine 1000MCG/ML 250 ML IV SCH (19:21)
[2023-08-18 20:00] VITALS: PULSE 85; RESP 19; O2SAT 98
[2023-08-18 22:00] VITALS: BP 122/85; PULSE 94; RESP 21; TEMP 98.2; O2SAT 98
[2023-08-18] MEDS: ATORVASTATIN 20 MG TAB PO SCH (22:43)
[2023-08-18] MEDS: HYDROcodone-ACET 5/325MG TAB PO PRN (23:40)
[2023-08-19] VITALS (7 sets, daily range): BP systolic 103–128; BP diastolic 74–86; PULSE 78–97; RESP 14–20; TEMP 97.3–98.3; O2SAT 95–100
[2023-08-19] MEDS: BUMETANIDE 2.5mg/10ml (0.25 mg/ml) INJ IV SCH ×2 (06:10→18:14)
[2023-08-19] MEDS: ACCU-CHEK COMFORT CURVE STRIP VI SCH ×4 (06:11→22:18)
[2023-08-19] MEDS: InsuLIN REG 1unit/0.01ml Soln (100units/ml) SC SCH ×4 (06:17→22:38)
[2023-08-19] MEDS: SODIUM CHLOR 0.9% PF (SALINE LOCK) 10ML VIAL/SYR IV SCH ×3 (06:18→22:17)
[2023-08-19] MEDS: BACLOFEN 10 MG TAB PO SCH ×2 (10:08→22:10)
[2023-08-19] MEDS: HYDROcodone-ACET 5/325MG TAB PO PRN ×2 (10:08→20:30)
[2023-08-19] MEDS: ASPirin 81 mg TAB PO SCH (10:09)
[2023-08-19] MEDS: SPIRONOLACTONE 25 MG TAB PO SCH (10:09)
[2023-08-19] MEDS: DOBUTamine 1000MCG/ML 250 ML IV SCH (14:31)
[2023-08-19] MEDS: ATORVASTATIN 20 MG TAB PO SCH (22:10)
[2023-08-20] VITALS (7 sets, daily range): BP systolic 99–119; BP diastolic 63–81; PULSE 77–115; RESP 16–22; TEMP 97.6–98; O2SAT 95–99
[2023-08-20] MEDS: SODIUM CHLOR 0.9% PF (SALINE LOCK) 10ML VIAL/SYR IV SCH ×3 (05:31→21:27)
[2023-08-20] MEDS: BUMETANIDE 2.5mg/10ml (0.25 mg/ml) INJ IV SCH ×2 (05:31→17:44)
[2023-08-20] MEDS: ACCU-CHEK COMFORT CURVE STRIP VI SCH (06:32)
[2023-08-20] MEDS: InsuLIN REG 1unit/0.01ml Soln (100units/ml) SC SCH (06:35)
[2023-08-20] MEDS: ASPirin 81 mg TAB PO SCH (09:31)
[2023-08-20] MEDS: BACLOFEN 10 MG TAB PO SCH ×2 (09:31→21:26)
[2023-08-20] MEDS: DOBUTamine 1000MCG/ML 250 ML IV SCH (09:31)
[2023-08-20] MEDS: SPIRONOLACTONE 25 MG TAB PO SCH (09:32)
[2023-08-20] MEDS: HYDROcodone-ACET 5/325MG TAB PO PRN ×2 (09:50→21:26)
[2023-08-20] MEDS: ONDANSETRON HCL 4 MG/2 ML VIAL IV PRN (15:58)
[2023-08-20] MEDS: ATORVASTATIN 20 MG TAB PO SCH (21:26)
[2023-08-21] VITALS (9 sets, daily range): BP systolic 99–112; BP diastolic 64–85; PULSE 74–101; RESP 17–20; TEMP 97.6–98.7; O2SAT 97–100
[2023-08-21 06:13] LABS: Basophils # (auto) 0.1 10 ^3/uL (0-0.2); Eosinophils # (auto) 0.1 10 ^3/uL (0-0.8); Eosinophils % (auto) 2.1 % (0.0-7.0); Hematocrit 50.1 % (41.0-53.0); Hemoglobin 16.6 g/dL (13.5-17.5); Lymphocytes # (auto) 0.8 10 ^3/uL (0.4-5.4); Lymphocytes % (auto) 14.1 % (10.0-50.0); Mean Corpuscular Hemoglobin 32.2 pg (28.0-32.0); Mean Corpuscular Hgb Conc. 33.1 g/dL (32.0-36.0); Mean Corpuscular Volume 97.4 fL (80.0-100.0); Monocytes # (auto) 0.8 10 ^3/uL (0-1.3); Neutrophils # (auto) 3.8 10 ^3/uL (1.6-8.6); Neutrophils % (auto) 67.8 % (37.0-80.0); Nucleated Red Blood Cells % 0.2 %; Red Blood Cells 5.14 10^6/uL (4.5-5.90); Red Cell Distribution Width 15.9 % (11.8-14.3); White Blood Cell 5.6 10^3/uL (4.4-10.8)
[2023-08-21 06:30] LABS: INR 1.3 (0.9-1.15); Partial Thromboplastin Time 31.1 SEC (24.5-34.5); Prothrombin Time 13.4 sec (9.3-11.8)
[2023-08-21] MEDS: SODIUM CHLOR 0.9% PF (SALINE LOCK) 10ML VIAL/SYR IV SCH ×3 (06:30→22:32)
[2023-08-21] MEDS: BUMETANIDE 2.5mg/10ml (0.25 mg/ml) INJ IV SCH ×2 (06:30→18:39)
[2023-08-21 06:37] LABS: Alanine Aminotransferase 91 U/L (7-40); Albumin 4.6 g/dL (3.2-4.8); Alkaline Phosphatase 155 U/L (46-116); Anion Gap 6 (5-15); Aspartate Aminotransferase 100 U/L (13-40); BUN/Creatinine Ratio 23.7 (10.0-20.0); Blood Urea Nitrogen 28 mg/dL (9-23); Calcium 10.3 mg/dL (8.5-10.1); Carbon Dioxide 36 mmol/L (20-30); Chloride 83 mmol/L (98-107); Glucose 96 mg/dL (74-106); Potassium 3.1 mmol/L (3.5-5.1); Sodium 125 mmol/L (136-145)
[2023-08-21 06:38] LABS: Bilirubin, Total 3.4 mg/dL (0.2-1.0); Total Protein 7.5 g/dL (5.7-8.2)
[2023-08-21] MEDS: SPIRONOLACTONE 25 MG TAB PO SCH (10:13)
[2023-08-21] MEDS: ASPirin 81 mg TAB PO SCH (10:14)
[2023-08-21] MEDS: BACLOFEN 10 MG TAB PO SCH ×2 (10:14→22:30)
[2023-08-21] MEDS ORDERED: HYDROcodone-ACET 5/325MG TAB PO PRN (13:00)
[2023-08-21] MEDS: HYDROcodone-ACET 5/325MG TAB PO PRN ×2 (13:12→22:30)
[2023-08-21] MEDS ORDERED: MORPHINE SULFATE INJ 2 MG/ml SYRG IV PRN (13:15)
[2023-08-21] MEDS ORDERED: POTASSIUM EFFERVESENT TAB 25 MEQ PO ONE (13:15)
[2023-08-21] MEDS: ONDANSETRON HCL 4 MG/2 ML VIAL IV PRN (17:04)
[2023-08-21] MEDS: ATORVASTATIN 20 MG TAB PO SCH (22:29)
[2023-08-22] VITALS (8 sets, daily range): BP systolic 98–109; BP diastolic 66–78; PULSE 65–117; RESP 17–19; TEMP 97.3–98.1; O2SAT 94–100
[2023-08-22] MEDS: BUMETANIDE 2.5mg/10ml (0.25 mg/ml) INJ IV SCH ×2 (06:12→18:14)
[2023-08-22] MEDS: SODIUM CHLOR 0.9% PF (SALINE LOCK) 10ML VIAL/SYR IV SCH ×3 (06:12→21:28)
[2023-08-22] MEDS: ASPirin 81 mg TAB PO SCH (09:32)
[2023-08-22] MEDS: SPIRONOLACTONE 25 MG TAB PO SCH (09:33)
[2023-08-22] MEDS: BACLOFEN 10 MG TAB PO SCH ×2 (09:33→21:28)
[2023-08-22] MEDS: HYDROcodone-ACET 5/325MG TAB PO PRN ×2 (10:27→18:18)
[2023-08-22 12:13] LABS: Chloride 85 mmol/L (98-107); Potassium 3.3 mmol/L (3.5-5.1); Sodium 125 mmol/L (136-145)
[2023-08-22 12:15] LABS: Calcium 9.4 mg/dL (8.7-10.4)
[2023-08-22 12:19] LABS: Glucose 90 mg/dL (74-106)
[2023-08-22 12:20] LABS: BUN/Creatinine Ratio 23.8 (10.0-20.0); Blood Urea Nitrogen 31 mg/dL (9-23); Magnesium 2.1 mg/dL (1.6-2.6)
[2023-08-22 13:03] LABS: Anion Gap 3 (5-15); Carbon Dioxide 37 mmol/L (20-30)
[2023-08-22] MEDS ORDERED: POTASSIUM CHL 20 Meq TABLET PO ONE (14:30)
[2023-08-22] MEDS: ONDANSETRON HCL 4 MG/2 ML VIAL IV PRN (15:49)
[2023-08-22] MEDS: ATORVASTATIN 20 MG TAB PO SCH (21:28)
[2023-08-23] VITALS (7 sets, daily range): BP systolic 102–110; BP diastolic 77–85; PULSE 89–112; RESP 18–20; TEMP 97.2–98.7; O2SAT 91–97
[2023-08-23] MEDS: BUMETANIDE 2.5mg/10ml (0.25 mg/ml) INJ IV SCH ×2 (06:37→18:52)
[2023-08-23] MEDS: SODIUM CHLOR 0.9% PF (SALINE LOCK) 10ML VIAL/SYR IV SCH ×3 (06:37→21:21)
[2023-08-23] MEDS: ONDANSETRON HCL 4 MG/2 ML VIAL IV PRN ×2 (08:06→22:36)
[2023-08-23] MEDS: POTASSIUM CHL 10 Meq TABLET PO SCH (08:56)
[2023-08-23] MEDS: SPIRONOLACTONE 25 MG TAB PO SCH (08:56)
[2023-08-23] MEDS: ASPirin 81 mg TAB PO SCH (08:56)
[2023-08-23] MEDS: HYDROcodone-ACET 5/325MG TAB PO PRN ×2 (08:57→21:19)
[2023-08-23] MEDS: BACLOFEN 10 MG TAB PO SCH ×2 (08:57→21:19)
[2023-08-23] MEDS: ATORVASTATIN 20 MG TAB PO SCH (21:19)
[2023-08-24] VITALS (7 sets, daily range): BP systolic 99–126; BP diastolic 70–82; PULSE 75–98; RESP 15–20; TEMP 97.5–98.2; O2SAT 96–100
[2023-08-24] MEDS: BUMETANIDE 2.5mg/10ml (0.25 mg/ml) INJ IV SCH ×2 (05:43→17:16)
[2023-08-24] MEDS: SODIUM CHLOR 0.9% PF (SALINE LOCK) 10ML VIAL/SYR IV SCH ×3 (05:43→21:06)
[2023-08-24 06:39] LABS: Alanine Aminotransferase 72 U/L (7-40); Albumin 4.4 g/dL (3.2-4.8); Alkaline Phosphatase 138 U/L (46-116); Anion Gap 7 (5-15); Aspartate Aminotransferase 56 U/L (13-40); BUN/Creatinine Ratio 22.6 (10.0-20.0); Bilirubin, Total 2.3 mg/dL (0.2-1.0); Blood Urea Nitrogen 28 mg/dL (9-23); Calcium 9.8 mg/dL (8.7-10.4); Carbon Dioxide 33 mmol/L (20-30); Chloride 88 mmol/L (98-107); Glucose 89 mg/dL (74-106); Potassium 3.7 mmol/L (3.5-5.1); Sodium 128 mmol/L (136-145); Total Protein 7.3 g/dL (5.7-8.2)
[2023-08-24] MEDS: HYDROcodone-ACET 5/325MG TAB PO PRN ×2 (08:13→21:07)
[2023-08-24] MEDS: POTASSIUM CHL 10 Meq TABLET PO SCH (09:07)
[2023-08-24] MEDS: SPIRONOLACTONE 25 MG TAB PO SCH (09:08)
[2023-08-24] MEDS: BACLOFEN 10 MG TAB PO SCH ×2 (09:08→21:07)
[2023-08-24] MEDS: ASPirin 81 mg TAB PO SCH (09:08)
[2023-08-24] MEDS: ATORVASTATIN 20 MG TAB PO SCH (21:07)
[2023-08-25] VITALS (7 sets, daily range): BP systolic 99–114; BP diastolic 68–82; PULSE 64–114; RESP 16–22; TEMP 97.7–98; O2SAT 95–100
[2023-08-25] MEDS: SODIUM CHLOR 0.9% PF (SALINE LOCK) 10ML VIAL/SYR IV SCH ×2 (06:45→14:13)
[2023-08-25] MEDS: BUMETANIDE 2.5mg/10ml (0.25 mg/ml) INJ IV SCH ×2 (06:49→18:09)
[2023-08-25] MEDS: BACLOFEN 10 MG TAB PO SCH (09:32)
[2023-08-25] MEDS: ASPirin 81 mg TAB PO SCH (09:32)
[2023-08-25] MEDS: SPIRONOLACTONE 25 MG TAB PO SCH (09:32)
[2023-08-25] MEDS: POTASSIUM CHL 10 Meq TABLET PO SCH (09:32)
[2023-08-25] MEDS: HYDROcodone-ACET 5/325MG TAB PO PRN (09:35)
[2023-08-25] MEDS: ONDANSETRON HCL 4 MG/2 ML VIAL IV PRN ×2 (09:41→17:30)
== END 2023-08-25 19:15 | disposition short-term general hospital (02) | DRG 206 ==
LOC: EDBD 20:24 → ER 20:24 → TELE 08-12 07:28 → TELE-WESTW 08-13 19:00
PROVIDERS: ADMIT Nurse Practitioner Family; ATTEND Nurse Practitioner Acute Care
DX: T82.110A Breakdown (mechanical) of cardiac electrode, initial encounter (principal); I50.23 Acute on chronic systolic (congestive) heart failure; I13.0 Hypertensive heart and chronic kidney disease with heart failure and stage 1 through stage 4 chronic kidney disease, or unspecified chronic kidney disease; I95.9 Hypotension, unspecified; I42.0 Dilated cardiomyopathy; E11.22 Type 2 diabetes mellitus with diabetic chronic kidney disease; N18.9 Chronic kidney disease, unspecified; Y71.2 Prosthetic and other implants, materials and accessory cardiovascular devices associated with adverse incidents; E78.5 Hyperlipidemia, unspecified; I25.119 Atherosclerotic heart disease of native coronary artery with unspecified angina pectoris; I08.1 Rheumatic disorders of both mitral and tricuspid valves; Z91.013 Allergy to seafood; Z82.49 Family history of ischemic heart disease and other diseases of the circulatory system; Z83.3 Family history of diabetes mellitus; Z86.711 Personal history of pulmonary embolism; Z79.899 Other long term (current) drug therapy; Z79.84 Long term (current) use of oral hypoglycemic drugs; Z98.61 Coronary angioplasty status; Z95.810 Presence of automatic (implantable) cardiac defibrillator; Z82.61 Family history of arthritis; Z80.9 Family history of malignant neoplasm, unspecified; Z82.3 Family history of stroke; Y92.89 Other specified places as the place of occurrence of the external cause
CPT/HCPCS: 36415; 71045; 80048; 80053; 82962; 83036; 83735; 83880; 84484; 85007; 85025; 85027; 85610; 85730; 93005; 93306; G0378; J1815; J2405

== ENCOUNTER 2023-09-11 14:16 | Emergency (ER) | payer MEDICAID ==
[~2023-09-11] VITALS: Ht 170.2 cm; Wt 80.0 kg
[~2023-09-11 14:16] MED LIST changes: -DEXT1SYP9 PO; +IVAB1.7T PO; -IVAB1TAB2 PO; +LOSA25TA15 PO; +METO25TA93 PO
[2023-09-11 14:58] LABS: Basophils # (auto) 0 10 ^3/uL (0-0.2); Basophils % (auto) 0.9 % (0.0-2.0); Eosinophils # (auto) 0.1 10 ^3/uL (0-0.8); Hematocrit 42.9 % (41.0-53.0); Hemoglobin 14.2 g/dL (13.5-17.5); Lymphocytes # (auto) 0.8 10 ^3/uL (0.4-5.4); Lymphocytes % (auto) 17.7 % (10.0-50.0); Mean Corpuscular Volume 96.9 fL (80.0-100.0); Monocytes # (auto) 0.6 10 ^3/uL (0-1.3); Monocytes % (auto) 13.2 % (0.0-12.0); Neutrophils # (auto) 2.9 10 ^3/uL (1.6-8.6); Neutrophils % (auto) 65.2 % (37.0-80.0); Nucleated Red Blood Cells % 0.1 %; Red Blood Cells 4.43 10^6/uL (4.5-5.90); Red Cell Distribution Width 16.3 % (11.8-14.3); White Blood Cell 4.4 10^3/uL (4.4-10.8)
[2023-09-11 15:08] LABS: Alanine Aminotransferase 29 U/L (7-40); Alkaline Phosphatase 150 U/L (46-116); Anion Gap 6 (5-15); Aspartate Aminotransferase 25 U/L (13-40); BUN/Creatinine Ratio 21.8 (10.0-20.0); Bilirubin, Total 1.3 mg/dL (0.2-1.0); Blood Urea Nitrogen 22 mg/dL (9-23); Calcium 9.2 mg/dL (8.7-10.4); Carbon Dioxide 28 mmol/L (20-30); Chloride 102 mmol/L (98-107); Glucose 102 mg/dL (74-106); Potassium 4.7 mmol/L (3.5-5.1); Sodium 136 mmol/L (136-145)
[2023-09-11 15:09] LABS: Total Protein 6.2 g/dL (5.7-8.2)
[2023-09-11] MEDS: ASPirin 325 MG TAB PO ONE (19:30)
[2023-09-11 21:30] VITALS: PULSE 94; RESP 18; O2SAT 96
[2023-09-11] MEDS: FUROSEMIDE 100 MG/10ML VIAL IV ONE (21:39)
[2023-09-11] MEDS: NITROGLYCERIN 0.4 MG SL TAB SL ONE ×2 (21:41→23:12)
[2023-09-11] MEDS: LABETALOL HCL 5 MG/ML 4ML SYRINGE IV ONE (23:13)
[2023-09-12 02:00] VITALS: BP 97/68; PULSE 74; RESP 16; O2SAT 100
== END 2023-09-12 02:30 | disposition home or self-care (01) ==
LOC: ER 14:16 → EDBD 14:16 → ER 09-12 02:30
DX: T82.110A Breakdown (mechanical) of cardiac electrode, initial encounter (principal); I11.0 Hypertensive heart disease with heart failure; I50.9 Heart failure, unspecified; R07.89 Other chest pain; E11.9 Type 2 diabetes mellitus without complications; Z91.013 Allergy to seafood; Z87.891 Personal history of nicotine dependence
CPT/HCPCS: 36415; 71045; 80053; 83880; 84484; 85025; 93005; 96374; 96375; 99285; J1940; J3490

== ENCOUNTER 2024-01-07 10:20 | Inpatient (IN) | payer MEDICAID ==
[2024-01-07] VITALS (8 sets, daily range): BP systolic 106–123; BP diastolic 75–91; PULSE 63–105; RESP 16–24; TEMP 98–98.1; O2SAT 94–99
[~2024-01-07] VITALS: Ht 182.9 cm; Wt 89.2 kg
[~2024-01-07 10:20] MED LIST changes: +LOSA-533 PO; -LOSA25TA15 PO; +POTA-36 PO; -POTA10TA51 PO
[2024-01-07] MEDS: FUROSEMIDE 40 MG/4 ML VIAL IV ONE (10:46)
[2024-01-07 11:10] LABS: Basophils # (auto) 0.1 10 ^3/uL (0-0.2); Basophils % (auto) 1.2 % (0.0-2.0); Eosinophils # (auto) 0.2 10 ^3/uL (0-0.8); Eosinophils % (auto) 2.7 % (0.0-7.0); Hematocrit 45.2 % (41.0-53.0); Hemoglobin 15.6 g/dL (13.5-17.5); Lymphocytes # (auto) 0.9 10 ^3/uL (0.4-5.4); Lymphocytes % (auto) 14.9 % (10.0-50.0); Mean Corpuscular Hemoglobin 32.7 pg (28.0-32.0); Mean Corpuscular Hgb Conc. 34.5 g/dL (32.0-36.0); Mean Corpuscular Volume 94.8 fL (80.0-100.0); Monocytes # (auto) 0.5 10 ^3/uL (0-1.3); Monocytes % (auto) 8.8 % (0.0-12.0); Neutrophils # (auto) 4.3 10 ^3/uL (1.6-8.6); Neutrophils % (auto) 72.4 % (37.0-80.0); Nucleated Red Blood Cells % 0.1 %; Red Blood Cells 4.77 10^6/uL (4.5-5.90); Red Cell Distribution Width 19.1 % (11.8-14.3); White Blood Cell 5.9 10^3/uL (4.4-10.8)
[2024-01-07 11:35] LABS: Chloride 100 mmol/L (98-107); Potassium 3.6 mmol/L (3.5-5.1); Sodium 132 mmol/L (136-145)
[2024-01-07 11:36] LABS: Anion Gap 6 (5-15); Carbon Dioxide 26 mmol/L (20-30)
[2024-01-07 11:37] LABS: Calcium 9.7 mg/dL (8.5-10.1)
[2024-01-07 11:38] LABS: Urine Bacteria None Seen /hpf (None Seen)
[2024-01-07 11:41] LABS: BUN/Creatinine Ratio 17.6 (10.0-20.0); Blood Urea Nitrogen 18 mg/dL (9-23); Glucose 119 mg/dL (74-106)
[2024-01-07 11:48] LABS: Urine Blood Negative /uL (Negative); Urine Clarity Clear (Clear); Urine Color Yellow (Yellow); Urine Protein, UAD TRACE (Negative); Urine Specific Gravity 1.007 (1.001-1.035); Urine Urobilinogen 2 mg/dL (Negative); Urine WBC <1 /hpf (0 - 3); Urine pH 7.5 (5.0-9.0)
[2024-01-07] MEDS ORDERED: NITROGLYCERIN 0.4 MG SL TAB SL PRN (13:30)
[2024-01-07] MEDS: NITROGLYCERIN 0.4 MG SL TAB SL ONE (13:30)
[2024-01-07] MEDS: MEXILETINE HYDROCHLORIDE 150 MG CAP PO SCH (14:01)
[2024-01-07] MEDS: BUMETANIDE 2.5mg/10ml (0.25 mg/ml) INJ IV SCH (18:10)
[2024-01-07] MEDS: ONDANSETRON HCL 4 MG/2 ML VIAL IV PRN (18:11)
[2024-01-07] MEDS: IPRATROPIUM BROM 0.5 MG/2.5ML INH SOL NEB PRN (20:38)
[2024-01-07] MEDS: ALBUTEROL SULF 2.5 MG/0.5ML(0.5%) NEB SOLN NEB PRN (20:38)
[2024-01-07] MEDS: MORPHINE SULFATE INJ 2 MG/ml SYRG IV PRN (20:49)
[2024-01-07] MEDS: CARVEDILOL 3.125 MG TAB PO SCH (21:38)
[2024-01-07] MEDS: PRAVASTATIN SODIUM 20 MG TAB PO SCH (21:39)
[2024-01-07] MEDS: SACUBITRIL-VALSARTAN 24mg/26mg TAB PO SCH (21:39)
[2024-01-08] VITALS (45 sets, daily range): BP systolic 92–122; BP diastolic 54–77; PULSE 72–95; RESP 12–29; TEMP 96.5–98; O2SAT 73–99
[2024-01-08] MEDS: PANTOPRAZOLE 40 MG TAB PO SCH (05:55)
[2024-01-08 06:00] LABS: Basophils # (auto) 0 10 ^3/uL (0-0.2); Basophils % (auto) 0.9 % (0.0-2.0); Eosinophils # (auto) 0.3 10 ^3/uL (0-0.8); Eosinophils % (auto) 5.6 % (0.0-7.0); Hematocrit 46.1 % (41.0-53.0); Hemoglobin 15.5 g/dL (13.5-17.5); Lymphocytes # (auto) 1.1 10 ^3/uL (0.4-5.4); Lymphocytes % (auto) 19.8 % (10.0-50.0); Mean Corpuscular Hemoglobin 32.3 pg (28.0-32.0); Mean Corpuscular Hgb Conc. 33.7 g/dL (32.0-36.0); Mean Corpuscular Volume 95.8 fL (80.0-100.0); Monocytes # (auto) 0.6 10 ^3/uL (0-1.3); Monocytes % (auto) 10.8 % (0.0-12.0); Neutrophils # (auto) 3.4 10 ^3/uL (1.6-8.6); Neutrophils % (auto) 62.9 % (37.0-80.0); Nucleated Red Blood Cells % 0.4 %; Red Blood Cells 4.82 10^6/uL (4.5-5.90); Red Cell Distribution Width 19.5 % (11.8-14.3); White Blood Cell 5.3 10^3/uL (4.4-10.8)
[2024-01-08 06:14] LABS: Alanine Aminotransferase 20 U/L (7-40); Albumin 3.9 g/dL (3.2-4.8); Alkaline Phosphatase 166 U/L (46-116); Anion Gap 6 (5-15); Aspartate Aminotransferase 22 U/L (13-40); BUN/Creatinine Ratio 15.7 (10.0-20.0); Blood Urea Nitrogen 17 mg/dL (9-23); Calcium 9.6 mg/dL (8.5-10.1); Carbon Dioxide 28 mmol/L (20-30); Chloride 99 mmol/L (98-107); Glucose 85 mg/dL (74-106); Potassium 3.5 mmol/L (3.5-5.1); Sodium 133 mmol/L (136-145)
[2024-01-08 06:15] LABS: Bilirubin, Total 1.6 mg/dL (0.2-1.0); Total Protein 6.6 g/dL (5.7-8.2)
[2024-01-08] MEDS: ENOXAPARIN SOD 40 MG/0.4 ML SYRINGE SC SCH (10:00)
[2024-01-08] MEDS ORDERED: PATIENTS OWN MEDICATION (Simvastatin 10 MG) PO SCH (10:00)
[2024-01-08] MEDS: IVABRADINE 5 MG TAB PO SCH (10:00)
[2024-01-08] MEDS ORDERED: PATIENTS OWN MEDICATION (Potassium Chloride (Potassium Chloride Cr) 20 MEQ) PO SCH (10:00)
[2024-01-08] MEDS: NOREPINEPHRINE 8 MG/250ML KIT 250 ML IV ONE (10:22)
[2024-01-08] MEDS: POTASSIUM CHL 20 Meq TABLET PO SCH (10:26)
[2024-01-08 11:14] LABS: Magnesium 1.8 mg/dL (1.6-2.6)
[2024-01-08] MEDS: DOBUTamine 1000MCG/ML 250 ML IV SCH (11:37)
[2024-01-08] MEDS: NOREPINEPHRINE 8 MG/250ML KIT 250 ML IV SCH (11:37)
[2024-01-08 12:22] LABS: INR 1.3 (0.9-1.15); Prothrombin Time 13.5 sec (9.3-11.8)
[2024-01-08 16:34] LABS: Amphetamine Screen, Urine Neg (NEGATIVE); Barbiturate Scree,Urine Neg (NEGATIVE); Benzodiazephine Screen, Urine Neg (NEGATIVE); Cannabinoid Screen, Urine Neg (NEGATIVE); Cocaine Screen, Urine Neg (NEGATIVE); Opiate Scree,Urine Neg (NEGATIVE); Phencyclidine Screen, Urine Neg (NEGATIVE)
[2024-01-08] MEDS: LIDOCAINE 1% (LOCAL ANESTH.) PF 5ml SDV ID ONE (17:05)
[2024-01-08] MEDS: ATORVASTATIN 20 MG TAB PO SCH (21:42)
[2024-01-08] MEDS: SODIUM CHLOR 0.9% PF (SALINE LOCK) 10ML VIAL/SYR IV SCH (21:42)
[2024-01-09] VITALS (96 sets, daily range): BP systolic 79–128; BP diastolic 35–84; PULSE 54–101; RESP 11–26; TEMP 97.7–98.2; O2SAT 86–100
[2024-01-09 04:14] LABS: Basophils # (auto) 0.1 10 ^3/uL (0-0.2); Basophils % (auto) 0.7 % (0.0-2.0); Eosinophils # (auto) 0.4 10 ^3/uL (0-0.8); Eosinophils % (auto) 4.4 % (0.0-7.0); Hematocrit 43.6 % (41.0-53.0); Hemoglobin 14.8 g/dL (13.5-17.5); Lymphocytes % (auto) 12.9 % (10.0-50.0); Mean Corpuscular Hemoglobin 32.6 pg (28.0-32.0); Monocytes # (auto) 0.9 10 ^3/uL (0-1.3); Monocytes % (auto) 10.9 % (0.0-12.0); Neutrophils # (auto) 5.7 10 ^3/uL (1.6-8.6); Neutrophils % (auto) 71.1 % (37.0-80.0); Nucleated Red Blood Cells % 0.4 %; Red Blood Cells 4.54 10^6/uL (4.5-5.90); Red Cell Distribution Width 18.8 % (11.8-14.3)
[2024-01-09 04:18] LABS: Calcium 9.2 mg/dL (8.7-10.4); Chloride 99 mmol/L (98-107); Potassium 3.7 mmol/L (3.5-5.1); Sodium 131 mmol/L (136-145)
[2024-01-09 04:19] LABS: Anion Gap 3 (5-15); Carbon Dioxide 29 mmol/L (20-30)
[2024-01-09 04:24] LABS: BUN/Creatinine Ratio 15.1 (10.0-20.0); Blood Urea Nitrogen 16 mg/dL (9-23); Glucose 125 mg/dL (74-106)
[2024-01-09 04:25] LABS: Magnesium 1.8 mg/dL (1.6-2.6)
[2024-01-09 04:26] LABS: Phosphorus 2.7 mg/dL (2.4-5.1)
[2024-01-09 05:47] LABS: Large Platelets FEW; Platelet Estimate Adequate
[2024-01-09] MEDS ORDERED: CLOPIDOGREL BISULFATE 75 MG TAB PO SCH (10:00)
[2024-01-09] MEDS ORDERED: VERI10TA PO (13:50)
[2024-01-09] MEDS ORDERED: CHOL20007 PO (13:52)
[2024-01-09] MEDS ORDERED: DIGO0.12 PO (13:52)
[2024-01-09] MEDS: ASPirin 81 mg TAB PO SCH (20:00)
[2024-01-10] VITALS (94 sets, daily range): BP systolic 84–134; BP diastolic 45–88; PULSE 30–103; RESP 11–60; TEMP 98.1–98.2; O2SAT 87–100
[2024-01-10 04:17] LABS: Basophils # (auto) 0 10 ^3/uL (0-0.2); Basophils % (auto) 0.7 % (0.0-2.0); Eosinophils # (auto) 0.3 10 ^3/uL (0-0.8); Eosinophils % (auto) 5.7 % (0.0-7.0); Hematocrit 42.2 % (41.0-53.0); Hemoglobin 14.3 g/dL (13.5-17.5); Lymphocytes # (auto) 0.8 10 ^3/uL (0.4-5.4); Lymphocytes % (auto) 16.3 % (10.0-50.0); Mean Corpuscular Hemoglobin 32.8 pg (28.0-32.0); Mean Corpuscular Volume 96.5 fL (80.0-100.0); Monocytes # (auto) 0.6 10 ^3/uL (0-1.3); Monocytes % (auto) 12.8 % (0.0-12.0); Neutrophils # (auto) 3.2 10 ^3/uL (1.6-8.6); Neutrophils % (auto) 64.5 % (37.0-80.0); Nucleated Red Blood Cells % 0.2 %; Red Blood Cells 4.37 10^6/uL (4.5-5.90); Red Cell Distribution Width 18.8 % (11.8-14.3)
[2024-01-10 04:32] LABS: Calcium 9.4 mg/dL (8.5-10.1); Chloride 100 mmol/L (98-107); Potassium 4.5 mmol/L (3.5-5.1); Sodium 131 mmol/L (136-145)
[2024-01-10 04:33] LABS: Anion Gap 2 (5-15); Carbon Dioxide 29 mmol/L (20-30)
[2024-01-10 04:38] LABS: BUN/Creatinine Ratio 14.9 (10.0-20.0); Blood Urea Nitrogen 14 mg/dL (9-23); Glucose 92 mg/dL (74-106)
[2024-01-10] MEDS: HYDROcodone-ACET 5/325MG TAB PO PRN (22:31)
[2024-01-10] MEDS: FUROSEMIDE 20 MG/2 ML VIAL IV ONE (22:32)
[2024-01-11] VITALS (33 sets, daily range): BP systolic 84–119; BP diastolic 57–84; PULSE 68–98; RESP 14–32; TEMP 96.7–98.8; O2SAT 88–100
[2024-01-11 04:45] LABS: Calcium 9.6 mg/dL (8.7-10.4); Chloride 98 mmol/L (98-107); Potassium 5.1 mmol/L (3.5-5.1)
[2024-01-11 04:46] LABS: Anion Gap 4 (5-15); Carbon Dioxide 23 mmol/L (20-30)
[2024-01-11 04:51] LABS: BUN/Creatinine Ratio 12.9 (10.0-20.0); Blood Urea Nitrogen 12 mg/dL (9-23); Glucose 91 mg/dL (74-106)
[2024-01-11 04:52] LABS: Magnesium 1.9 mg/dL (1.6-2.6)
[2024-01-11 05:05] LABS: Basophils # (auto) 0 10 ^3/uL (0-0.2); Basophils % (auto) 0.5 % (0.0-2.0); Eosinophils # (auto) 0.1 10 ^3/uL (0-0.8); Eosinophils % (auto) 2.3 % (0.0-7.0); Hematocrit 42.5 % (41.0-53.0); Hemoglobin 14.3 g/dL (13.5-17.5); Lymphocytes # (auto) 0.8 10 ^3/uL (0.4-5.4); Lymphocytes % (auto) 13.3 % (10.0-50.0); Mean Corpuscular Hgb Conc. 33.8 g/dL (32.0-36.0); Mean Corpuscular Volume 97.9 fL (80.0-100.0); Monocytes # (auto) 0.6 10 ^3/uL (0-1.3); Monocytes % (auto) 11.1 % (0.0-12.0); Neutrophils # (auto) 4.2 10 ^3/uL (1.6-8.6); Neutrophils % (auto) 72.8 % (37.0-80.0); Nucleated Red Blood Cells % 0.2 %; Red Blood Cells 4.34 10^6/uL (4.5-5.90); Red Cell Distribution Width 19.3 % (11.8-14.3); White Blood Cell 5.8 10^3/uL (4.4-10.8)
[2024-01-11 05:22] LABS: Sodium 125 mmol/L (136-145)
[2024-01-11] MEDS: MAGNESIUM SULFATE 1GM/100ML 100 ML IV SCH (10:03)
[2024-01-11] MEDS: EMPAGLIFLOZIN 10 MG TAB PO SCH (10:25)
[2024-01-11] MEDS: METOPROLOL TARTRATE 25 MG TAB PO SCH (10:26)
[2024-01-11] MEDS: SPIRONOLACTONE 25 MG TAB PO SCH (10:26)
[2024-01-11] MEDS: SACUBITRIL-VALSARTAN 24mg/26mg TAB PO SCH (10:27)
[2024-01-11] MEDS: MORPHINE SULFATE INJ 2 MG/ml SYRG IV PRN (13:49)
[2024-01-11] MEDS: metOLazone 5 MG TAB PO SCH (15:42)
[2024-01-11] MEDS ORDERED: FUROSEMIDE 20 MG TAB PO SCH (18:00)
[2024-01-11] MEDS: ACETAMINOPHEN 325 MG TAB PO PRN (20:27)
[2024-01-11] MEDS: ASPirin 325 MG TAB PO ONE (22:19)
[2024-01-11] MEDS: RANOLAZINE ER 500 MG TAB PO SCH (22:34)
[2024-01-12] VITALS (26 sets, daily range): BP systolic 86–107; BP diastolic 41–76; PULSE 73–87; RESP 13–35; TEMP 96.5–98.2; O2SAT 90–100
[2024-01-12 07:03] LABS: Basophils # (auto) 0 10 ^3/uL (0-0.2); Basophils % (auto) 0.5 % (0.0-2.0); Eosinophils # (auto) 0.2 10 ^3/uL (0-0.8); Eosinophils % (auto) 3.7 % (0.0-7.0); Hematocrit 44.1 % (41.0-53.0); Hemoglobin 15.1 g/dL (13.5-17.5); Lymphocytes # (auto) 0.9 10 ^3/uL (0.4-5.4); Lymphocytes % (auto) 15.3 % (10.0-50.0); Mean Corpuscular Hemoglobin 32.8 pg (28.0-32.0); Mean Corpuscular Hgb Conc. 34.2 g/dL (32.0-36.0); Mean Corpuscular Volume 95.9 fL (80.0-100.0); Monocytes # (auto) 0.8 10 ^3/uL (0-1.3); Monocytes % (auto) 14.5 % (0.0-12.0); Neutrophils # (auto) 3.8 10 ^3/uL (1.6-8.6); Nucleated Red Blood Cells % 0.5 %; Red Cell Distribution Width 19.1 % (11.8-14.3); White Blood Cell 5.7 10^3/uL (4.4-10.8)
[2024-01-12 07:52] LABS: Alanine Aminotransferase 39 U/L (7-40); Albumin 4.3 g/dL (3.2-4.8); Alkaline Phosphatase 159 U/L (46-116); Anion Gap 8 (5-15); Aspartate Aminotransferase 53 U/L (13-40); BUN/Creatinine Ratio 15.6 (10.0-20.0); Blood Urea Nitrogen 21 mg/dL (9-23); Calcium 9.9 mg/dL (8.5-10.1); Carbon Dioxide 22 mmol/L (20-30); Chloride 96 mmol/L (98-107); Glucose 64 mg/dL (74-106); Magnesium 2.4 mg/dL (1.6-2.6); Sodium 126 mmol/L (136-145)
[2024-01-12 07:53] LABS: Bilirubin, Total 2.7 mg/dL (0.2-1.0); Total Protein 6.9 g/dL (5.7-8.2)
[2024-01-12 09:00] LABS: Potassium 5.6 mmol/L (3.5-5.1)
[2024-01-12] MEDS: SODIUM ZIRCONIUM CYCL 10 GM PAK PO SCH (09:50)
[2024-01-12] MEDS: ALBUTEROL SULF 2.5 MG/0.5ML(0.5%) NEB SOLN NEB ONE (10:30)
[2024-01-12] MEDS: ASPirin 81 mg TAB PO SCH (12:28)
[2024-01-12] MEDS: SODIUM CHLORIDE 0.9% 250 ML IV ONE (12:42)
[2024-01-12] MEDS: DOCUSATE SOD 100 MG CAP PO PRN (16:49)
[2024-01-13] VITALS (14 sets, daily range): BP systolic 94–126; BP diastolic 55–90; PULSE 65–89; RESP 16–28; TEMP 95.9–97.9; O2SAT 93–100
[2024-01-13 05:48] LABS: Basophils # (auto) 0 10 ^3/uL (0-0.2); Basophils % (auto) 0.6 % (0.0-2.0); Eosinophils # (auto) 0.1 10 ^3/uL (0-0.8); Eosinophils % (auto) 1.1 % (0.0-7.0); Hematocrit 42.9 % (41.0-53.0); Hemoglobin 14.3 g/dL (13.5-17.5); Lymphocytes # (auto) 0.7 10 ^3/uL (0.4-5.4); Lymphocytes % (auto) 9.7 % (10.0-50.0); Mean Corpuscular Hemoglobin 32.3 pg (28.0-32.0); Mean Corpuscular Hgb Conc. 33.4 g/dL (32.0-36.0); Mean Corpuscular Volume 96.8 fL (80.0-100.0); Monocytes # (auto) 0.8 10 ^3/uL (0-1.3); Monocytes % (auto) 11.7 % (0.0-12.0); Neutrophils # (auto) 5.4 10 ^3/uL (1.6-8.6); Neutrophils % (auto) 76.9 % (37.0-80.0); Nucleated Red Blood Cells % 0.1 %; Red Blood Cells 4.43 10^6/uL (4.5-5.90); Red Cell Distribution Width 19.5 % (11.8-14.3)
[2024-01-13 06:50] LABS: Alanine Aminotransferase 74 U/L (7-40); Alkaline Phosphatase 166 U/L (46-116); Anion Gap 7 (5-15); Aspartate Aminotransferase 83 U/L (13-40); BUN/Creatinine Ratio 14.8 (10.0-20.0); Bilirubin, Total 1.9 mg/dL (0.2-1.0); Blood Urea Nitrogen 19 mg/dL (9-23); Calcium 9.4 mg/dL (8.5-10.1); Carbon Dioxide 21 mmol/L (20-30); Chloride 97 mmol/L (98-107); Glucose 90 mg/dL (74-106); Magnesium 2.2 mg/dL (1.6-2.6); Potassium 4.6 mmol/L (3.5-5.1); Sodium 125 mmol/L (136-145)
[2024-01-13 06:51] LABS: Total Protein 6.5 g/dL (5.7-8.2)
[2024-01-13] MEDS ORDERED: SODIUM CHL 3% 50 ML IV ONE (09:30)
== END 2024-01-13 12:40 | disposition short-term general hospital (02) | DRG 194 ==
LOC: ER 10:20 → EDBD 10:20 → TELE 13:39 → WEST WING 22:20 → ICU WEST 01-08 10:55 → DOU IN ICU 01-11 15:39
PROVIDERS: ADMIT Internal Medicine Pulmonary Disease; ATTEND Emergency Medicine
PROC: 02HV33Z Insertion of Infusion Device into Superior Vena Cava, Percutaneous Approach (ICD-10-PCS; 2024-01-08)
PROC: B548ZZA Ultrasonography of Superior Vena Cava, Guidance (ICD-10-PCS; 2024-01-08)
PROC: 4B02XTZ Measurement of Cardiac Defibrillator, External Approach (ICD-10-PCS; principal; 2024-01-10)
DX: I13.0 Hypertensive heart and chronic kidney disease with heart failure and stage 1 through stage 4 chronic kidney disease, or unspecified chronic kidney disease (principal); R57.0 Cardiogenic shock; J96.20 Acute and chronic respiratory failure, unspecified whether with hypoxia or hypercapnia; I95.9 Hypotension, unspecified; I42.8 Other cardiomyopathies; I47.20 Ventricular tachycardia, unspecified; T82.118A Breakdown (mechanical) of other cardiac electronic device, initial encounter; E11.22 Type 2 diabetes mellitus with diabetic chronic kidney disease; I50.23 Acute on chronic systolic (congestive) heart failure; I08.1 Rheumatic disorders of both mitral and tricuspid valves; E78.5 Hyperlipidemia, unspecified; I25.10 Atherosclerotic heart disease of native coronary artery without angina pectoris; I48.91 Unspecified atrial fibrillation; E87.5 Hyperkalemia; F15.10 Other stimulant abuse, uncomplicated; Y83.8 Other surgical procedures as the cause of abnormal reaction of the patient, or of later complication, without mention of misadventure at the time of the procedure; N18.9 Chronic kidney disease, unspecified; Z87.891 Personal history of nicotine dependence; Z95.810 Presence of automatic (implantable) cardiac defibrillator; Z91.013 Allergy to seafood; Z91.199 Patient's noncompliance with other medical treatment and regimen due to unspecified reason; Z83.3 Family history of diabetes mellitus; Z82.3 Family history of stroke; Z82.49 Family history of ischemic heart disease and other diseases of the circulatory system; Z79.82 Long term (current) use of aspirin; Z79.899 Other long term (current) drug therapy; Y92.89 Other specified places as the place of occurrence of the external cause
CPT/HCPCS: 36415; 36569; 71045; 80048; 80053; 80307; 81001; 82962; 83735; 83880; 84100; 84132; 84443; 84484; 85025; 85610; 87081; 93005; 93306; 93970; 94640; G0378; J2405

== ENCOUNTER 2024-01-21 16:55 | Inpatient (IN) | payer MEDICAID ==
[~2024-01-21] VITALS: Ht 182.9 cm; Wt 81.0 kg
[~2024-01-21 16:55] MED LIST changes: +CHOL20007 PO; +DIGO0.12 PO; +VERI10TA PO; -VERI2.5T PO
[2024-01-21 17:39] LABS: Basophils # (auto) 0 10 ^3/uL (0-0.2); Basophils % (auto) 0.9 % (0.0-2.0); Eosinophils # (auto) 0.2 10 ^3/uL (0-0.8); Hematocrit 45.3 % (41.0-53.0); Hemoglobin 15.1 g/dL (13.5-17.5); Lymphocytes # (auto) 0.9 10 ^3/uL (0.4-5.4); Lymphocytes % (auto) 16.2 % (10.0-50.0); Mean Corpuscular Hemoglobin 32.3 pg (28.0-32.0); Mean Corpuscular Hgb Conc. 33.4 g/dL (32.0-36.0); Mean Corpuscular Volume 96.7 fL (80.0-100.0); Monocytes # (auto) 0.7 10 ^3/uL (0-1.3); Monocytes % (auto) 12.1 % (0.0-12.0); Neutrophils # (auto) 3.8 10 ^3/uL (1.6-8.6); Neutrophils % (auto) 66.8 % (37.0-80.0); Nucleated Red Blood Cells % 0.2 %; Red Blood Cells 4.68 10^6/uL (4.5-5.90); Red Cell Distribution Width 19.2 % (11.8-14.3); White Blood Cell 5.6 10^3/uL (4.4-10.8)
[2024-01-21 17:43] LABS: Alanine Aminotransferase 42 U/L (7-40); Albumin 4.3 g/dL (3.2-4.8); Alkaline Phosphatase 174 U/L (46-116); Anion Gap 5 (5-15); Aspartate Aminotransferase 23 U/L (13-40); BUN/Creatinine Ratio 22.9 (10.0-20.0); Bilirubin, Total 1.3 mg/dL (0.2-1.0); Blood Urea Nitrogen 24 mg/dL (9-23); Calcium 9.1 mg/dL (8.5-10.1); Carbon Dioxide 26 mmol/L (20-30); Chloride 102 mmol/L (98-107); Glucose 91 mg/dL (74-106); Sodium 133 mmol/L (136-145)
[2024-01-21 17:44] LABS: Total Protein 6.6 g/dL (5.7-8.2)
[2024-01-21] MEDS ORDERED: NITROGLYCERIN 0.4 MG SL TAB SL PRN (20:30)
[2024-01-21] MEDS ORDERED: ALBUTEROL SULF 2.5 MG/0.5ML(0.5%) NEB SOLN NEB PRN (20:30)
[2024-01-21] MEDS ORDERED: DEXTROSE (50%) 50ML SYRG IV PRN (20:30)
[2024-01-21] MEDS ORDERED: ONDANSETRON HCL 4 MG/2 ML VIAL IV PRN (20:30)
[2024-01-21] MEDS ORDERED: MORPHINE SULFATE INJ 2 MG/ml SYRG IV PRN (20:30)
[2024-01-21] MEDS ORDERED: ACETAMINOPHEN 325 MG TAB PO PRN (20:30)
[2024-01-21] MEDS: HYDROcodone-ACET 5/325MG TAB PO ONE (20:49)
[2024-01-21] MEDS: FUROSEMIDE 20 MG/2 ML VIAL IV ONE (20:50)
[2024-01-21 21:15] VITALS: PULSE 76; RESP 20; O2SAT 98
[2024-01-21 21:35] VITALS: BP 98/72; PULSE 85; RESP 16; TEMP 98.1; O2SAT 97
[2024-01-21] MEDS: InsuLIN REG 1unit/0.01ml Soln (100units/ml) SC SCH (22:00)
[2024-01-21] MEDS ORDERED: SACUBITRIL-VALSARTAN 24mg/26mg TAB PO SCH (22:00)
[2024-01-21] MEDS ORDERED: METOPROLOL TARTRATE 25 MG TAB PO SCH (22:00)
[2024-01-21] MEDS: ACCU-CHEK COMFORT CURVE STRIP VI SCH (22:07)
[2024-01-22] VITALS (8 sets, daily range): BP systolic 92–132; BP diastolic 65–81; PULSE 79–111; RESP 13–20; TEMP 97.5–98; O2SAT 95–98
[2024-01-22] MEDS: FUROSEMIDE 20 MG/2 ML VIAL IV SCH (05:39)
[2024-01-22] MEDS ORDERED: FUROSEMIDE 20 MG/2 ML VIAL IV SCH (06:00)
[2024-01-22 07:06] LABS: Basophils # (auto) 0 10 ^3/uL (0-0.2); Basophils % (auto) 0.9 % (0.0-2.0); Eosinophils # (auto) 0.3 10 ^3/uL (0-0.8); Eosinophils % (auto) 4.7 % (0.0-7.0); Hemoglobin 15.2 g/dL (13.5-17.5); Lymphocytes % (auto) 17.8 % (10.0-50.0); Mean Corpuscular Hemoglobin 32.7 pg (28.0-32.0); Mean Corpuscular Hgb Conc. 33.9 g/dL (32.0-36.0); Mean Corpuscular Volume 96.6 fL (80.0-100.0); Monocytes # (auto) 0.6 10 ^3/uL (0-1.3); Monocytes % (auto) 11.3 % (0.0-12.0); Neutrophils # (auto) 3.7 10 ^3/uL (1.6-8.6); Neutrophils % (auto) 65.3 % (37.0-80.0); Nucleated Red Blood Cells % 0.2 %; Red Blood Cells 4.66 10^6/uL (4.5-5.90); Red Cell Distribution Width 18.8 % (11.8-14.3); White Blood Cell 5.6 10^3/uL (4.4-10.8)
[2024-01-22 07:29] LABS: Alanine Aminotransferase 37 U/L (7-40); Albumin 4.4 g/dL (3.2-4.8); Alkaline Phosphatase 167 U/L (46-116); Anion Gap 7 (5-15); BUN/Creatinine Ratio 15.6 (10.0-20.0); Blood Urea Nitrogen 19 mg/dL (9-23); Calcium 9.7 mg/dL (8.5-10.1); Carbon Dioxide 30 mmol/L (20-30); Chloride 98 mmol/L (98-107); Glucose 84 mg/dL (74-106); Potassium 3.8 mmol/L (3.5-5.1); Sodium 135 mmol/L (136-145)
[2024-01-22 07:30] LABS: Aspartate Aminotransferase 26 U/L (13-40)
[2024-01-22 07:31] LABS: Bilirubin, Total 1.2 mg/dL (0.2-1.0)
[2024-01-22] MEDS: ENOXAPARIN SOD 40 MG/0.4 ML SYRINGE SC SCH (08:52)
[2024-01-22] MEDS: SPIRONOLACTONE 25 MG TAB PO SCH (08:53)
[2024-01-22] MEDS: RANOLAZINE ER 500 MG TAB PO SCH (10:00)
[2024-01-22] MEDS ORDERED: ATOR40TA52 PO (11:42)
== END 2024-01-22 16:30 | disposition home or self-care (01) | DRG 194 ==
LOC: EDBD 16:55 → ER 16:55 → TELE 20:41 → TELE-WESTW 01-22 03:58
PROVIDERS: ADMIT Internal Medicine Pulmonary Disease; ATTEND Internal Medicine Pulmonary Disease
DX: I11.0 Hypertensive heart disease with heart failure (principal); T82.190A Other mechanical complication of cardiac electrode, initial encounter; I50.23 Acute on chronic systolic (congestive) heart failure; E11.9 Type 2 diabetes mellitus without complications; E78.5 Hyperlipidemia, unspecified; I25.10 Atherosclerotic heart disease of native coronary artery without angina pectoris; I48.91 Unspecified atrial fibrillation; Z87.891 Personal history of nicotine dependence; Z91.013 Allergy to seafood; Z95.810 Presence of automatic (implantable) cardiac defibrillator; Z79.4 Long term (current) use of insulin; Y84.8 Other medical procedures as the cause of abnormal reaction of the patient, or of later complication, without mention of misadventure at the time of the procedure; Y92.89 Other specified places as the place of occurrence of the external cause
CPT/HCPCS: 36415; 71045; 80053; 82962; 83880; 84484; 85025; 87081; 93005; 96374; G0378

== ENCOUNTER 2024-02-05 16:58 | Emergency (ER) | payer MEDICAID ==
[~2024-02-05] VITALS: Ht 182.9 cm; Wt 113.6 kg
[~2024-02-05 16:58] MED LIST changes: -ATOR20TA50 PO; +ATOR40TA52 PO; -METF-370 PO; -MEXI150C15 PO; -SIMV10TA20 PO
[2024-02-05 17:55] LABS: Basophils # (auto) 0.1 10 ^3/uL (0-0.2); Eosinophils # (auto) 0.3 10 ^3/uL (0-0.8); Hematocrit 39.6 % (41.0-53.0); Hemoglobin 13.3 g/dL (13.5-17.5); Lymphocytes # (auto) 0.7 10 ^3/uL (0.4-5.4); Lymphocytes % (auto) 10.5 % (10.0-50.0); Mean Corpuscular Hemoglobin 32.5 pg (28.0-32.0); Mean Corpuscular Hgb Conc. 33.5 g/dL (32.0-36.0); Mean Corpuscular Volume 97.3 fL (80.0-100.0); Monocytes # (auto) 1.1 10 ^3/uL (0-1.3); Monocytes % (auto) 15.7 % (0.0-12.0); Neutrophils # (auto) 4.7 10 ^3/uL (1.6-8.6); Neutrophils % (auto) 68.8 % (37.0-80.0); Red Blood Cells 4.08 10^6/uL (4.5-5.90); White Blood Cell 6.8 10^3/uL (4.4-10.8)
[2024-02-05 18:07] LABS: Alanine Aminotransferase 32 U/L (7-40); Albumin 4.9 g/dL (3.2-4.8); Alkaline Phosphatase 181 U/L (46-116); Anion Gap 8 (5-15); Aspartate Aminotransferase 30 U/L (13-40); BUN/Creatinine Ratio 15.8 (10.0-20.0); Bilirubin, Total 2.3 mg/dL (0.2-1.0); Blood Urea Nitrogen 22 mg/dL (9-23); Calcium 10.5 mg/dL (8.7-10.4); Carbon Dioxide 29 mmol/L (20-30); Chloride 97 mmol/L (98-107); Glucose 99 mg/dL (74-106); Magnesium 2.1 mg/dL (1.6-2.6); Potassium 4.6 mmol/L (3.5-5.1); Sodium 134 mmol/L (136-145); Total Protein 7.2 g/dL (5.7-8.2)
[2024-02-05 18:13] LABS: INR 1.4 (0.9-1.15); Partial Thromboplastin Time 30.9 SEC (24.5-34.5); Prothrombin Time 14.5 sec (9.3-11.8)
[2024-02-05] MEDS: LIDOCAINE VISCOUS 2% 15ML UD PO ONE (21:10)
[2024-02-05] MEDS: PANTOPRAZOLE 40 MG TAB PO ONE (21:10)
[2024-02-05] MEDS: SUCRALFATE 1 GM TAB PO ONE (21:10)
[2024-02-05 21:23] VITALS: BP 112/80; TEMP 97.4
[2024-02-05 21:24] VITALS: PULSE 79; RESP 16; O2SAT 96
== END 2024-02-05 22:25 | disposition home or self-care (01) ==
LOC: EDBD 16:58 → ER 16:58
DX: R14.0 Abdominal distension (gaseous) (principal); R07.9 Chest pain, unspecified; I48.91 Unspecified atrial fibrillation; I25.10 Atherosclerotic heart disease of native coronary artery without angina pectoris; E78.5 Hyperlipidemia, unspecified; I10 Essential (primary) hypertension; E11.9 Type 2 diabetes mellitus without complications; Z86.73 Personal history of transient ischemic attack (TIA), and cerebral infarction without residual deficits; Z87.891 Personal history of nicotine dependence; Z98.61 Coronary angioplasty status; Z95.0 Presence of cardiac pacemaker
CPT/HCPCS: 36415; 71045; 80053; 83735; 83880; 84484; 85025; 85610; 85730; 93005

== ENCOUNTER 2024-02-06 05:51 | Inpatient (IN) | payer MEDICAID ==
[~2024-02-06] VITALS: Ht 182.9 cm; Wt 93.2 kg
[2024-02-06 07:22] LABS: Basophils # (auto) 0.1 10 ^3/uL (0-0.2); Basophils % (auto) 1.2 % (0.0-2.0); Eosinophils # (auto) 0.3 10 ^3/uL (0-0.8); Eosinophils % (auto) 4.2 % (0.0-7.0); Hematocrit 40.6 % (41.0-53.0); Hemoglobin 13.8 g/dL (13.5-17.5); Lymphocytes # (auto) 0.9 10 ^3/uL (0.4-5.4); Lymphocytes % (auto) 14.8 % (10.0-50.0); Mean Corpuscular Hemoglobin 33.2 pg (28.0-32.0); Mean Corpuscular Volume 97.7 fL (80.0-100.0); Monocytes # (auto) 1.1 10 ^3/uL (0-1.3); Neutrophils # (auto) 3.7 10 ^3/uL (1.6-8.6); Neutrophils % (auto) 61.4 % (37.0-80.0); Nucleated Red Blood Cells % 0.4 %; Red Blood Cells 4.16 10^6/uL (4.5-5.90); Red Cell Distribution Width 18.2 % (11.8-14.3)
[2024-02-06 07:25] LABS: Alanine Aminotransferase 28 U/L (7-40); Albumin 4.8 g/dL (3.2-4.8); Alkaline Phosphatase 181 U/L (46-116); Anion Gap 9 (5-15); Aspartate Aminotransferase 28 U/L (13-40); BUN/Creatinine Ratio 11.3 (10.0-20.0); Blood Urea Nitrogen 16 mg/dL (9-23); Calcium 10.2 mg/dL (8.7-10.4); Carbon Dioxide 25 mmol/L (20-30); Chloride 97 mmol/L (98-107); Glucose 88 mg/dL (74-106); Magnesium 2.2 mg/dL (1.6-2.6); Monocytes % (auto) 18.4 % (0.0-12.0); Potassium 4.4 mmol/L (3.5-5.1); Sodium 131 mmol/L (136-145)
[2024-02-06 07:26] LABS: Bilirubin, Total 2.6 mg/dL (0.2-1.0); Total Protein 7.2 g/dL (5.7-8.2)
[2024-02-06 07:28] LABS: INR 1.49 (0.9-1.15); Prothrombin Time 15.3 sec (9.3-11.8)
[2024-02-06 10:45] VITALS: RESP 15; O2SAT 97
[2024-02-06] MEDS ORDERED: ACETAMINOPHEN 325 MG TAB PO PRN (11:15)
[2024-02-06] MEDS ORDERED: NITROGLYCERIN 0.4 MG SL TAB SL PRN ×2 (11:15)
[2024-02-06] MEDS ORDERED: MORPHINE SULFATE 4 MG/ML SYR/VIAL IV PRN (11:15)
[2024-02-06] MEDS: BUMETANIDE 2.5mg/10ml (0.25 mg/ml) INJ IV ONE (11:30)
[2024-02-06] MEDS: ONDANSETRON HCL 4 MG/2 ML VIAL IV PRN (14:26)
[2024-02-06 17:30] VITALS: PULSE 82; RESP 13; O2SAT 98
[2024-02-06] MEDS: BUMETANIDE 2.5mg/10ml (0.25 mg/ml) INJ IV SCH (17:52)
[2024-02-06 19:13] LABS: Urine Bacteria None Seen /hpf (None Seen)
[2024-02-06] MEDS: MORPHINE SULFATE INJ 2 MG/ml SYRG IV PRN (19:20)
[2024-02-06 19:30] LABS: Urine Blood Negative /uL (Negative); Urine Clarity Clear (Clear); Urine Color Yellow (Yellow); Urine Hyaline Cast FEW /lpf (0 - 2); Urine Mucus FEW (None Seen); Urine Protein, UAD 1+ (Negative); Urine Specific Gravity 1.017 (1.001-1.035); Urine Urobilinogen 4 mg/dL (Negative); Urine WBC 3 /hpf (0 - 3)
[2024-02-06] MEDS: SACUBITRIL-VALSARTAN 24mg/26mg TAB PO SCH (22:00)
[2024-02-06] MEDS: IVABRADINE 5 MG TAB PO SCH (22:00)
[2024-02-06] MEDS: ATORVASTATIN 20 MG TAB PO SCH (23:12)
[2024-02-06] MEDS: CARVEDILOL 3.125 MG TAB PO SCH (23:12)
[2024-02-07 05:00] VITALS: BP 106/84; PULSE 77; RESP 18; TEMP 97.5; O2SAT 98
[2024-02-07 05:09] LABS: Basophils # (auto) 0 10 ^3/uL (0-0.2); Basophils % (auto) 0.5 % (0.0-2.0); Eosinophils # (auto) 0.1 10 ^3/uL (0-0.8); Eosinophils % (auto) 0.8 % (0.0-7.0); Hematocrit 36.8 % (41.0-53.0); Hemoglobin 12.4 g/dL (13.5-17.5); Lymphocytes % (auto) 49.7 % (10.0-50.0); Mean Corpuscular Hemoglobin 33.3 pg (28.0-32.0); Mean Corpuscular Hgb Conc. 33.7 g/dL (32.0-36.0); Mean Corpuscular Volume 98.9 fL (80.0-100.0); Monocytes # (auto) 0.6 10 ^3/uL (0-1.3); Monocytes % (auto) 7.8 % (0.0-12.0); Neutrophils # (auto) 3.3 10 ^3/uL (1.6-8.6); Neutrophils % (auto) 41.2 % (37.0-80.0); Red Blood Cells 3.72 10^6/uL (4.5-5.90); Red Cell Distribution Width 13.2 % (11.8-14.3)
[2024-02-07 05:25] LABS: Alanine Aminotransferase 39 U/L (7-40); Albumin 4.1 g/dL (3.2-4.8); Alkaline Phosphatase 77 U/L (46-116); Anion Gap 7 (5-15); Aspartate Aminotransferase 22 U/L (13-40); BUN/Creatinine Ratio 15.9 (10.0-20.0); Bilirubin, Total 0.4 mg/dL (0.2-1.0); Blood Urea Nitrogen 13 mg/dL (9-23); Calcium 9.3 mg/dL (8.7-10.4); Carbon Dioxide 23 mmol/L (20-30); Cholesterol 113 mg/dL (< 200); HDL Cholesterol 53 mg/dL (40-59); LDL Cholesterol 43 mg/dL (< 100); Potassium 4.2 mmol/L (3.5-5.1); Sodium 139 mmol/L (136-145); Total Protein 6.4 g/dL (5.7-8.2); Triglycerides 96 mg/dL (< 150)
[2024-02-07 05:39] LABS: Chloride 109 mmol/L (98-107); Glucose 270 mg/dL (74-106)
[2024-02-07 08:00] VITALS: PULSE 63; PULSE 64; RESP 18; O2SAT 92
[2024-02-07 09:00] VITALS: BP 102/64; PULSE 63; RESP 18; TEMP 97.5; O2SAT 92
[2024-02-07] MEDS: Dapagliflozin Propanediol (Farxiga) 10 MG TABLET PO SCH (09:19)
[2024-02-07] MEDS: DOCUSATE SOD 100 MG CAP PO SCH (09:21)
[2024-02-07] MEDS: POTASSIUM CHL 20 Meq TABLET PO SCH (09:22)
[2024-02-07] MEDS: ASPirin-EC 81 mg tab PO SCH (09:23)
[2024-02-07] MEDS: SPIRONOLACTONE 25 MG TAB PO SCH (09:23)
[2024-02-07] MEDS: DIGOXIN 0.125 MG TAB PO SCH (09:24)
[2024-02-07 09:25] LABS: Amphetamine Screen, Urine Neg (NEGATIVE); Barbiturate Scree,Urine Neg (NEGATIVE); Benzodiazephine Screen, Urine Neg (NEGATIVE); Cannabinoid Screen, Urine Neg (NEGATIVE); Cocaine Screen, Urine Neg (NEGATIVE); Opiate Scree,Urine Neg (NEGATIVE); Phencyclidine Screen, Urine Neg (NEGATIVE)
[2024-02-07] MEDS: AMIODARONE HCL 200 MG TAB PO SCH (09:42)
[2024-02-07] MEDS: HYDROcodone-ACET 5/325MG TAB PO PRN (09:43)
[2024-02-07] MEDS ORDERED: ASPirin 81 mg TAB PO SCH (10:00)
[2024-02-07] MEDS ORDERED: LOSARTAN POTASSIUM 25 MG TAB PO SCH (10:00)
[2024-02-07] MEDS ORDERED: AMIO200T13 PO ×2 (12:25)
[2024-02-07] MEDS ORDERED: ACET-1882 PO ×2 (12:25)
[2024-02-07 13:00] VITALS: BP 108/66; PULSE 60; RESP 20; TEMP 98.2; O2SAT 94
[2024-02-07 14:02] VITALS: BP 120/68; PULSE 64; TEMP 36.4
== END 2024-02-07 15:45 | disposition home or self-care (01) | DRG 206 ==
LOC: ER 05:51 → EDBD 05:51 → TELE 11:21 → TELE-WESTW 02-07 03:11
PROVIDERS: ADMIT Internal Medicine; ATTEND Internal Medicine
DX: T82.110A Breakdown (mechanical) of cardiac electrode, initial encounter (principal); I50.23 Acute on chronic systolic (congestive) heart failure; I42.0 Dilated cardiomyopathy; E11.22 Type 2 diabetes mellitus with diabetic chronic kidney disease; I48.20 Chronic atrial fibrillation, unspecified; I13.0 Hypertensive heart and chronic kidney disease with heart failure and stage 1 through stage 4 chronic kidney disease, or unspecified chronic kidney disease; I25.10 Atherosclerotic heart disease of native coronary artery without angina pectoris; E78.5 Hyperlipidemia, unspecified; I42.7 Cardiomyopathy due to drug and external agent; N18.9 Chronic kidney disease, unspecified; Z95.810 Presence of automatic (implantable) cardiac defibrillator; Z91.013 Allergy to seafood; Z87.891 Personal history of nicotine dependence; Z82.49 Family history of ischemic heart disease and other diseases of the circulatory system; Z83.3 Family history of diabetes mellitus; Z82.3 Family history of stroke; Z91.199 Patient's noncompliance with other medical treatment and regimen due to unspecified reason; Y84.8 Other medical procedures as the cause of abnormal reaction of the patient, or of later complication, without mention of misadventure at the time of the procedure; Y92.89 Other specified places as the place of occurrence of the external cause; F19.10 Other psychoactive substance abuse, uncomplicated
CPT/HCPCS: 36415; 71045; 76705; 80053; 80061; 80307; 81001; 82306; 82607; 82962; 83036; 83605; 83735; 83880; 84484; 85025; 85610; 85730; 93005; G0378; J2405

== ENCOUNTER 2024-02-08 13:40 | Inpatient (IN) | payer MEDICAID ==
[~2024-02-08] VITALS: Ht 182.9 cm; Wt 90.0 kg
[~2024-02-08 13:40] MED LIST changes: +ACET-1882 PO; +AMIO200T13 PO
[2024-02-08 14:16] LABS: Basophils # (auto) 0.1 10 ^3/uL (0-0.2); Basophils % (auto) 0.9 % (0.0-2.0); Eosinophils # (auto) 0.1 10 ^3/uL (0-0.8); Eosinophils % (auto) 1.3 % (0.0-7.0); Hematocrit 37.9 % (41.0-53.0); Hemoglobin 12.9 g/dL (13.5-17.5); Lymphocytes # (auto) 0.3 10 ^3/uL (0.4-5.4); Lymphocytes % (auto) 5.2 % (10.0-50.0); Mean Corpuscular Hemoglobin 32.9 pg (28.0-32.0); Mean Corpuscular Hgb Conc. 34.2 g/dL (32.0-36.0); Mean Corpuscular Volume 96.4 fL (80.0-100.0); Monocytes # (auto) 0.9 10 ^3/uL (0-1.3); Monocytes % (auto) 15.3 % (0.0-12.0); Neutrophils # (auto) 4.7 10 ^3/uL (1.6-8.6); Neutrophils % (auto) 77.3 % (37.0-80.0); Nucleated Red Blood Cells % 0.2 %; Red Blood Cells 3.93 10^6/uL (4.5-5.90); Red Cell Distribution Width 17.7 % (11.8-14.3); White Blood Cell 6.1 10^3/uL (4.4-10.8)
[2024-02-08 14:30] VITALS: PULSE 84; RESP 18; O2SAT 95
[2024-02-08 14:32] LABS: Alanine Aminotransferase 26 U/L (7-40); Alkaline Phosphatase 164 U/L (46-116); Anion Gap 8 (5-15); Aspartate Aminotransferase 37 U/L (13-40); BUN/Creatinine Ratio 18.2 (10.0-20.0); Calcium 9.7 mg/dL (8.7-10.4); Carbon Dioxide 26 mmol/L (20-30); Potassium 4.1 mmol/L (3.5-5.1)
[2024-02-08 14:33] LABS: Albumin 4.6 g/dL (3.2-4.8); Bilirubin, Total 4.6 mg/dL (0.2-1.0); Chloride 95 mmol/L (98-107); Glucose 127 mg/dL (74-106); Sodium 129 mmol/L (136-145); Total Protein 6.6 g/dL (5.7-8.2)
[2024-02-08 14:34] LABS: Blood Urea Nitrogen 24 mg/dL (9-23)
[2024-02-08 14:43] LABS: INR 1.74 (0.9-1.15); Partial Thromboplastin Time 31.5 SEC (24.5-34.5); Prothrombin Time 17.7 sec (9.3-11.8)
[2024-02-08] MEDS: MORPHINE SULFATE 4 MG/ML SYR/VIAL IV ONE (16:19)
[2024-02-08] MEDS: ONDANSETRON HCL 4 MG/2 ML VIAL IV ONE (16:19)
[2024-02-08] MEDS ORDERED: HYDROmorphone HCL 2 MG/ML VL/or syr IV PRN (16:30)
[2024-02-08] MEDS ORDERED: ONDANSETRON HCL 4 MG/2 ML VIAL IV PRN (16:30)
[2024-02-08] MEDS ORDERED: MORPHINE SULFATE INJ 2 MG/ml SYRG IV PRN (16:30)
[2024-02-08] MEDS ORDERED: NITROGLYCERIN 0.4 MG SL TAB SL PRN ×2 (16:30→16:45)
[2024-02-08] MEDS ORDERED: DEXTROSE (50%) 50ML SYRG IV PRN (16:45)
[2024-02-08] MEDS: InsuLIN REG 1unit/0.01ml Soln (100units/ml) SC SCH (17:00)
[2024-02-08] MEDS: ACCU-CHEK COMFORT CURVE STRIP VI SCH (17:10)
[2024-02-08] MEDS: METOCLOPRAMIDE HCL 5MG/ml INJ 2ml VIAL IV PRN (17:34)
[2024-02-08 17:50] VITALS: BP 130/82; PULSE 100; RESP 20; TEMP 98.6; O2SAT 94
[2024-02-08 18:57] VITALS: PULSE 100; RESP 20; O2SAT 94
[2024-02-08] MEDS: FUROSEMIDE 40 MG/4 ML VIAL IV SCH (19:06)
[2024-02-08 20:00] VITALS: PULSE 88; PULSE 90; RESP 16; O2SAT 98
[2024-02-08] MEDS: DOBUTamine 1000MCG/ML 250 ML IV SCH (20:36)
[2024-02-08] MEDS: SACUBITRIL-VALSARTAN 24mg/26mg TAB PO SCH (21:04)
[2024-02-08] MEDS: ACETAMINOPHEN 325 MG TAB PO PRN (21:05)
[2024-02-08] MEDS: SODIUM CHLOR 0.9% PF (SALINE LOCK) 10ML VIAL/SYR IV SCH (21:10)
[2024-02-08] MEDS ORDERED: AMIODARONE HCL 200 MG TAB PO SCH (22:00)
[2024-02-08] MEDS ORDERED: CARVEDILOL 3.125 MG TAB PO SCH (22:00)
[2024-02-08] MEDS ORDERED: METOPROLOL TARTRATE 25 MG TAB PO SCH (22:00)
[2024-02-08] MEDS ORDERED: ATORVASTATIN 20 MG TAB PO SCH (22:00)
[2024-02-08] MEDS ORDERED: SACUBITRIL-VALSARTAN 24mg/26mg TAB PO SCH (22:00)
[2024-02-08] MEDS: MEXILETINE HYDROCHLORIDE 150 MG CAP PO SCH (22:31)
[2024-02-08] MEDS: IVABRADINE 5 MG TAB PO SCH (22:52)
[2024-02-09] VITALS (7 sets, daily range): BP systolic 92–122; BP diastolic 53–65; PULSE 60–84; RESP 18; TEMP 97.5–99.2; O2SAT 96–100
[2024-02-09] MEDS: EMPAGLIFLOZIN 10 MG TAB PO SCH (09:34)
[2024-02-09] MEDS: PANTOPRAZOLE 40 MG/10 ML VIAL INJ IV SCH (09:34)
[2024-02-09] MEDS: CHOLECALCIFEROL (VITD3) 1,000UNIT=25mCg TAB PO SCH (09:34)
[2024-02-09] MEDS: SPIRONOLACTONE 25 MG TAB PO SCH (09:34)
[2024-02-09 10:00] LABS: Urine Bacteria None Seen /hpf (None Seen)
[2024-02-09] MEDS ORDERED: ASPirin-EC 81 mg tab PO SCH (10:00)
[2024-02-09] MEDS ORDERED: VERICIGUAT PO SCH (10:00)
[2024-02-09] MEDS ORDERED: DIGOXIN 0.125 MG TAB PO SCH (10:00)
[2024-02-09] MEDS ORDERED: Dapagliflozin Propanediol (Farxiga) 10 MG TABLET PO SCH (10:00)
[2024-02-09] MEDS ORDERED: SPIRONOLACTONE 25 MG TAB PO SCH (10:00)
[2024-02-09 10:12] LABS: Urine Blood TRACE /uL (Negative); Urine Clarity Clear (Clear); Urine Color Yellow (Yellow); Urine Protein, UAD TRACE (Negative); Urine Specific Gravity 1.008 (1.001-1.035); Urine Urobilinogen 6 mg/dL (Negative); Urine WBC 1 /hpf (0 - 3); Urine pH 6.5 (5.0-9.0)
[2024-02-09 10:24] LABS: Creatinine, Urine 32.62 mg/dL (30.0-125.0)
[2024-02-09] MEDS: HYDROcodone-ACET 5/325MG TAB PO PRN (10:28)
[2024-02-09] MEDS: guaiFENesin-DM 100/10mg/5ml SYR PO PRN (21:42)
[2024-02-10] VITALS (8 sets, daily range): BP systolic 60–122; BP diastolic 55–77; PULSE 63–85; RESP 14–19; TEMP 97.6–98.7; O2SAT 93–100
[2024-02-10 07:35] LABS: Hematocrit 37.9 % (41.0-53.0); Mean Corpuscular Hemoglobin 33.1 pg (28.0-32.0); Mean Corpuscular Hgb Conc. 34.2 g/dL (32.0-36.0); Mean Corpuscular Volume 96.8 fL (80.0-100.0); Red Blood Cells 3.92 10^6/uL (4.5-5.90); Red Cell Distribution Width 17.9 % (11.8-14.3); White Blood Cell 6.1 10^3/uL (4.4-10.8)
[2024-02-10 07:44] LABS: Basophils % (manual) 0 (0.0-2.0); Blast Cells 0; Metamyelocytes % 0; Myelocytes % 0; Promyelocytes % 0
[2024-02-10 07:51] LABS: Alanine Aminotransferase 22 U/L (7-40); Albumin 4.4 g/dL (3.2-4.8); Alkaline Phosphatase 157 U/L (46-116); Anion Gap 12 (5-15); Aspartate Aminotransferase 26 U/L (13-40); Bilirubin, Total 3.2 mg/dL (0.2-1.0); Blood Urea Nitrogen 19 mg/dL (9-23); Calcium 9.5 mg/dL (8.7-10.4); Carbon Dioxide 22 mmol/L (20-30); Chloride 98 mmol/L (98-107); Glucose 90 mg/dL (74-106); Potassium 3.6 mmol/L (3.5-5.1); Sodium 132 mmol/L (136-145); Total Protein 6.6 g/dL (5.7-8.2)
[2024-02-10 08:34] LABS: Band Neutrophils % (manual) 4; Eosinophils % (manual) 1 (0-7); Lymphocytes % (manual) 6 (10.0-50.0); Monocytes % (manual) 14 (0-12); Reactive Lymphocytes 1
[2024-02-10 08:35] LABS: Anisocytosis Slight; Ovalocytes FEW; Platelet Estimate Adequate; Tear Drop Cells FEW
[2024-02-11] VITALS (8 sets, daily range): BP systolic 90–108; BP diastolic 54–72; PULSE 60–101; RESP 16–18; TEMP 97.1–98.6; O2SAT 98–100
[2024-02-11] MEDS: TEMAZEPAM 15 MG CAP PO ONE (01:25)
[2024-02-12] VITALS (8 sets, daily range): BP systolic 88–109; BP diastolic 52–75; PULSE 63–73; RESP 16–18; TEMP 97.4–98.6; O2SAT 93–98
[2024-02-12] MEDS: MELATONIN 5 MG TAB PO ONE (21:45)
[2024-02-13 01:00] VITALS: BP 106/71; PULSE 72; RESP 16; TEMP 97.7; O2SAT 96
[2024-02-13 05:00] VITALS: BP 110/77; PULSE 82; RESP 18; TEMP 98.6; O2SAT 98
[2024-02-13 08:00] VITALS: PULSE 66
[2024-02-13 09:00] VITALS: BP 106/78; PULSE 90; RESP 20; TEMP 98.7; O2SAT 99
[2024-02-13 10:23] LABS: Chloride 98 mmol/L (98-107); Potassium 3.6 mmol/L (3.5-5.1); Sodium 135 mmol/L (136-145)
[2024-02-13 10:24] LABS: Anion Gap 6 (5-15); Calcium 9.8 mg/dL (8.7-10.4); Carbon Dioxide 31 mmol/L (20-30)
[2024-02-13 10:29] LABS: BUN/Creatinine Ratio 12.7 (10.0-20.0); Blood Urea Nitrogen 14 mg/dL (9-23); Glucose 112 mg/dL (74-106)
[2024-02-13 10:30] LABS: Magnesium 2.1 mg/dL (1.6-2.6)
[2024-02-13] MEDS ORDERED: SACU1TAB PO ×2 (10:52)
[2024-02-13 11:59] VITALS: BP 98/63; PULSE 75; RESP 20; TEMP 98.4; O2SAT 97
[2024-02-14] MEDS ORDERED: FUROSEMIDE 40 MG TAB PO SCH (10:00)
== END 2024-02-13 16:12 | disposition home or self-care (01) | DRG 194 ==
LOC: ER 13:40 → EDBD 13:40 → TELE 16:31 → TELE-EAST 17:43
PROVIDERS: ADMIT Internal Medicine; ATTEND Internal Medicine
DX: I11.0 Hypertensive heart disease with heart failure (principal); I27.20 Pulmonary hypertension, unspecified; I42.0 Dilated cardiomyopathy; I50.43 Acute on chronic combined systolic (congestive) and diastolic (congestive) heart failure; E11.9 Type 2 diabetes mellitus without complications; E78.5 Hyperlipidemia, unspecified; I25.119 Atherosclerotic heart disease of native coronary artery with unspecified angina pectoris; I34.0 Nonrheumatic mitral (valve) insufficiency; I48.91 Unspecified atrial fibrillation; Z91.013 Allergy to seafood; Z95.810 Presence of automatic (implantable) cardiac defibrillator; Z95.5 Presence of coronary angioplasty implant and graft; Z82.49 Family history of ischemic heart disease and other diseases of the circulatory system; Z83.3 Family history of diabetes mellitus; Z87.891 Personal history of nicotine dependence; Z82.3 Family history of stroke; Z80.9 Family history of malignant neoplasm, unspecified; Z91.199 Patient's noncompliance with other medical treatment and regimen due to unspecified reason
CPT/HCPCS: 36415; 71045; 80048; 80053; 81001; 82570; 82962; 83735; 83880; 84300; 84484; 85007; 85025; 85027; 85610; 85730; 87081; 93005; 93306; 96374; 96375; G0378; J1815; J2405; J2470

== ENCOUNTER 2024-04-25 19:03 | Inpatient (IN) | payer MEDICAID ==
[~2024-04-25] VITALS: Ht 193 cm; Wt 81.0 kg
[~2024-04-25 19:03] MED LIST changes: -LOSA-533 PO; -METO25TA93 PO; -POTA-36 PO
[2024-04-25 19:55] LABS: Basophils # (auto) 0.1 10 ^3/uL (0-0.2); Basophils % (auto) 1.1 % (0.0-2.0); Eosinophils # (auto) 0.3 10 ^3/uL (0-0.8); Eosinophils % (auto) 3.3 % (0.0-7.0); Hematocrit 43.2 % (41.0-53.0); Lymphocytes # (auto) 1.3 10 ^3/uL (0.4-5.4); Lymphocytes % (auto) 15.9 % (10.0-50.0); Mean Corpuscular Hemoglobin 33.2 pg (28.0-32.0); Mean Corpuscular Hgb Conc. 34.7 g/dL (32.0-36.0); Mean Corpuscular Volume 95.8 fL (80.0-100.0); Monocytes # (auto) 0.9 10 ^3/uL (0-1.3); Monocytes % (auto) 10.5 % (0.0-12.0); Neutrophils # (auto) 5.9 10 ^3/uL (1.6-8.6); Neutrophils % (auto) 69.2 % (37.0-80.0); Nucleated Red Blood Cells % 0.3 %; Platelet Count (auto) 243 10^3/uL (140-450); Red Blood Cells 4.51 10^6/uL (4.5-5.90); Red Cell Distribution Width 18.1 % (11.8-14.3); White Blood Cell 8.5 10^3/uL (4.4-10.8)
[2024-04-25 20:05] LABS: Alanine Aminotransferase 21 U/L (7-40); Alkaline Phosphatase 157 U/L (46-116); Anion Gap 13 (5-15); Aspartate Aminotransferase 19 U/L (13-40); BUN/Creatinine Ratio 14.3 (10.0-20.0); Blood Urea Nitrogen 23 mg/dL (9-23); Calcium 10.7 mg/dL (8.7-10.4); Carbon Dioxide 23 mmol/L (20-31); Chloride 99 mmol/L (98-107); Glucose 113 mg/dL (74-106); INR 1.28 (0.9-1.15); Potassium 3.4 mmol/L (3.5-5.1); Prothrombin Time 13.3 sec (9.3-11.8); Sodium 135 mmol/L (136-145)
[2024-04-25 20:06] LABS: Bilirubin, Total 2.2 mg/dL (0.2-1.0); Total Protein 7.6 g/dL (5.7-8.2)
[2024-04-25] MEDS: ONDANSETRON HCL 4 MG/2 ML VIAL IV ONE (20:22)
[2024-04-25] MEDS: NITROGLYCERIN 0.4 MG SL TAB SL ONE (20:23)
[2024-04-25] MEDS: ASPirin-EC 325mg tab PO ONE (20:23)
[2024-04-25 20:30] VITALS: PULSE 97; RESP 18; O2SAT 96
[2024-04-25] MEDS: FUROSEMIDE 100 MG/10ML VIAL IV ONE (21:15)
[2024-04-25] MEDS ORDERED: ACETAMINOPHEN 325 MG TAB PO PRN (21:30)
[2024-04-25] MEDS ORDERED: NITROGLYCERIN 0.4 MG SL TAB SL PRN (21:30)
[2024-04-25] MEDS ORDERED: DEXTROSE (50%) 50ML SYRG IV PRN (21:30)
[2024-04-25] MEDS: MORPHINE SULFATE INJ 2 MG/ml SYRG IV PRN (21:46)
[2024-04-25] MEDS: InsuLIN REG 1unit/0.01ml Soln (100units/ml) SC SCH (22:00)
[2024-04-25] MEDS: AMIODARONE HCL 200 MG TAB PO SCH (22:27)
[2024-04-25] MEDS: ATORVASTATIN 20 MG TAB PO SCH (22:27)
[2024-04-25] MEDS: ACCU-CHEK COMFORT CURVE STRIP VI SCH (22:27)
[2024-04-25 23:52] VITALS: BP 105/75; PULSE 101; RESP 18; TEMP 97.5; O2SAT 99
[2024-04-26] VITALS (11 sets, daily range): BP systolic 89–107; BP diastolic 56–77; PULSE 81–103; RESP 16–19; TEMP 97.5–98.5; O2SAT 91–100
[2024-04-26] MEDS: FUROSEMIDE 20 MG/2 ML VIAL IV SCH (05:14)
[2024-04-26] MEDS: InsuLIN REG 1unit/0.01ml Soln (100units/ml) SC SCH (05:16)
[2024-04-26 06:17] LABS: Chloride 98 mmol/L (98-107); Sodium 134 mmol/L (136-145)
[2024-04-26 06:18] LABS: Anion Gap 10 (5-15); Carbon Dioxide 26 mmol/L (20-31)
[2024-04-26 06:23] LABS: BUN/Creatinine Ratio 12.8 (10.0-20.0); Blood Urea Nitrogen 21 mg/dL (9-23); Glucose 98 mg/dL (74-106)
[2024-04-26] MEDS: ENOXAPARIN SOD 40 MG/0.4 ML SYRINGE SC SCH (09:11)
[2024-04-26] MEDS: ASPirin 81 mg TAB PO SCH (09:12)
[2024-04-26] MEDS: SPIRONOLACTONE 25 MG TAB PO SCH (09:12)
[2024-04-26] MEDS: DIGOXIN 0.125 MG TAB PO SCH (09:13)
[2024-04-26] MEDS: POTASSIUM EFFERVESENT TAB 25 MEQ PO ONE (10:05)
[2024-04-26] MEDS: ONDANSETRON HCL 4 MG/2 ML VIAL IV PRN (10:24)
[2024-04-26] MEDS: BUMETANIDE 2.5mg/10ml (0.25 mg/ml) INJ IV SCH (12:33)
[2024-04-26] MEDS: metOLazone 5 MG TAB PO ONE (12:34)
[2024-04-26] MEDS: SODIUM CHLORIDE 0.9% 500 ML IV ONE (14:00)
[2024-04-26] MEDS: METOCLOPRAMIDE HCL 5MG/ml INJ 2ml VIAL IV ONE (14:00)
[2024-04-26] MEDS: DOBUTamine 1000MCG/ML 250 ML IV SCH (14:00)
[2024-04-26] MEDS: DOBUTamine 1000MCG/ML 250 ML IV ONE (14:01)
[2024-04-26 14:32] LABS: Chloride 107 mmol/L (98-107); Sodium 140 mmol/L (136-145)
[2024-04-26 14:33] LABS: Anion Gap 13 (5-15); Calcium 7.6 mg/dL (8.7-10.4); Carbon Dioxide 20 mmol/L (20-31)
[2024-04-26 14:38] LABS: Glucose 78 mg/dL (74-106)
[2024-04-26 14:39] LABS: BUN/Creatinine Ratio 16.2 (10.0-20.0); Blood Urea Nitrogen 22 mg/dL (9-23)
[2024-04-26] MEDS: PROCHLORPERAZINE EDISYLATE 5 MG/ML 2ML VIAL IV ONE (15:10)
[2024-04-27] VITALS (8 sets, daily range): BP systolic 89–105; BP diastolic 53–81; PULSE 61–99; RESP 16–20; TEMP 97.4–98.7; O2SAT 92–100
[2024-04-27 00:01] LABS: Rapid Influenza A Negative (Negative); Rapid Influenza B Negative (Negative)
[2024-04-27 00:02] LABS: COVID19 ANTIGEN SOFIA FIA NEGATIVE (NEGATIVE)
[2024-04-27 06:36] LABS: Alanine Aminotransferase 32 U/L (7-40); Albumin 4.5 g/dL (3.2-4.8); Alkaline Phosphatase 139 U/L (46-116); Anion Gap 10 (5-15); Aspartate Aminotransferase 33 U/L (13-40); BUN/Creatinine Ratio 14.7 (10.0-20.0); Blood Urea Nitrogen 25 mg/dL (9-23); Calcium 9.8 mg/dL (8.7-10.4); Carbon Dioxide 29 mmol/L (20-31); Glucose 99 mg/dL (74-106); Potassium 2.8 mmol/L (3.5-5.1); Total Protein 7.2 g/dL (5.7-8.2)
[2024-04-27 06:39] LABS: Chloride 93 mmol/L (98-107); Sodium 132 mmol/L (136-145)
[2024-04-27] MEDS ORDERED: SOD CHL 0.9%/ KCL 40MEQ 1,000 ML IV SCH (08:00)
[2024-04-27] MEDS: POTASSIUM CHL 20 Meq TABLET PO ONE (08:42)
[2024-04-27] MEDS: FAMOTIDINE 20 MG TAB PO SCH (08:43)
[2024-04-27] MEDS: POTASSIUM CHL 20MEQ/100ML 100 ML IV SCH (09:05)
[2024-04-27] MEDS: ONDANSETRON HCL 4 MG/2 ML VIAL ONE (20:44)
[2024-04-28] VITALS (8 sets, daily range): BP systolic 98–116; BP diastolic 66–77; PULSE 70–97; RESP 17–20; TEMP 97.6–98.3; O2SAT 97–100
[2024-04-28 07:54] LABS: Alanine Aminotransferase 45 U/L (7-40); Alkaline Phosphatase 143 U/L (46-116); Anion Gap 10 (5-15); BUN/Creatinine Ratio 19.8 (10.0-20.0); Blood Urea Nitrogen 34 mg/dL (9-23); Calcium 10.1 mg/dL (8.7-10.4); Carbon Dioxide 31 mmol/L (20-31); Chloride 89 mmol/L (98-107); Glucose 90 mg/dL (74-106); Potassium 2.9 mmol/L (3.5-5.1); Sodium 130 mmol/L (136-145)
[2024-04-28 07:55] LABS: Albumin 4.7 g/dL (3.2-4.8); Aspartate Aminotransferase 41 U/L (13-40); Bilirubin, Total 1.5 mg/dL (0.2-1.0); Total Protein 7.3 g/dL (5.7-8.2)
[2024-04-28] MEDS: POTASSIUM CHL 20MEQ/100ML 100 ML IV SCH (11:32)
[2024-04-28] MEDS: POTASSIUM CHL 20 Meq TABLET PO ONE (11:33)
[2024-04-28 17:31] LABS: Chloride 91 mmol/L (98-107); Potassium 3.9 mmol/L (3.5-5.1); Sodium 129 mmol/L (136-145)
[2024-04-28 17:32] LABS: Anion Gap 11 (5-15); Carbon Dioxide 27 mmol/L (20-31)
[2024-04-28 17:33] LABS: Calcium 10.3 mg/dL (8.7-10.4)
[2024-04-28 17:38] LABS: BUN/Creatinine Ratio 17.8 (10.0-20.0); Blood Urea Nitrogen 33 mg/dL (9-23); Glucose 134 mg/dL (74-106)
[2024-04-28] MEDS: TEMAZEPAM 15 MG CAP PO PRN (22:25)
[2024-04-28] MEDS: MORPHINE SULFATE INJ 2 MG/ml SYRG IV PRN (23:44)
[2024-04-29] VITALS (8 sets, daily range): BP systolic 91–109; BP diastolic 66–77; PULSE 51–98; RESP 16–19; TEMP 98–98.3; O2SAT 97–100
[2024-04-29 07:02] LABS: Anion Gap 9 (5-15); Carbon Dioxide 32 mmol/L (20-31); Chloride 90 mmol/L (98-107); Potassium 2.7 mmol/L (3.5-5.1); Sodium 131 mmol/L (136-145)
[2024-04-29 07:04] LABS: Calcium 10.1 mg/dL (8.7-10.4)
[2024-04-29 07:08] LABS: BUN/Creatinine Ratio 20.1 (10.0-20.0); Blood Urea Nitrogen 34 mg/dL (9-23); Glucose 95 mg/dL (74-106)
[2024-04-29] MEDS ORDERED: POTASSIUM CHL 20MEQ/100ML 100 ML IV SCH (08:30)
[2024-04-29] MEDS: POTASSIUM CHL 20 Meq TABLET PO SCH (11:55)
[2024-04-29 13:10] LABS: Chloride 90 mmol/L (98-107); Potassium 2.9 mmol/L (3.5-5.1); Sodium 127 mmol/L (136-145)
[2024-04-29 13:11] LABS: Anion Gap 6 (5-15); Calcium 10.6 mg/dL (8.7-10.4); Carbon Dioxide 31 mmol/L (20-31)
[2024-04-29 13:16] LABS: BUN/Creatinine Ratio 17.8 (10.0-20.0); Blood Urea Nitrogen 28 mg/dL (9-23); Glucose 107 mg/dL (74-106)
[2024-04-29] MEDS: POTASSIUM CHL 20 Meq TABLET PO ONE (15:12)
[2024-04-29] MEDS: metOLazone 5 MG TAB PO ONE (18:48)
[2024-04-30] VITALS (8 sets, daily range): BP systolic 114–129; BP diastolic 67–88; PULSE 68–90; RESP 17–20; TEMP 97.8–98.4; O2SAT 96–100
[2024-04-30] MEDS: POTASSIUM CHL 20 Meq TABLET PO ONE ×3 (04:00→13:57)
[2024-04-30 07:05] LABS: Chloride 89 mmol/L (98-107); Potassium 2.7 mmol/L (3.5-5.1); Sodium 130 mmol/L (136-145)
[2024-04-30 07:06] LABS: Anion Gap 11 (5-15); Calcium 10.5 mg/dL (8.7-10.4); Carbon Dioxide 30 mmol/L (20-31)
[2024-04-30 07:11] LABS: Glucose 110 mg/dL (74-106)
[2024-04-30 07:12] LABS: BUN/Creatinine Ratio 20.5 (10.0-20.0); Blood Urea Nitrogen 36 mg/dL (9-23)
[2024-04-30] MEDS: POTASSIUM CHL 20MEQ/100ML 100 ML IV SCH (08:49)
[2024-04-30] MEDS: POTASSIUM EFFERVESENT TAB 25 MEQ PO ONE (08:49)
[2024-04-30 15:05] LABS: Chloride 90 mmol/L (98-107); Potassium 3.8 mmol/L (3.5-5.1); Sodium 128 mmol/L (136-145)
[2024-04-30 15:06] LABS: Anion Gap 8 (5-15); Calcium 10.8 mg/dL (8.7-10.4); Carbon Dioxide 30 mmol/L (20-31)
[2024-04-30 15:11] LABS: BUN/Creatinine Ratio 16.4 (10.0-20.0); Blood Urea Nitrogen 32 mg/dL (9-23); Glucose 147 mg/dL (74-106)
[2024-04-30] MEDS ORDERED: BUM1T PO (15:51)
[2024-04-30] MEDS ORDERED: BUME2TAB5 PO (15:54)
[2024-04-30] MEDS ORDERED: POTA-228 PO (15:55)
[2024-04-30] MEDS: BUMETANIDE 2.5mg/10ml (0.25 mg/ml) INJ IV ONE (16:24)
== END 2024-04-30 19:15 | disposition home or self-care (01) | DRG 206 ==
LOC: ER 19:03 → TELE 21:32 → TELE-E-ADS 23:19
PROVIDERS: ADMIT Student in an Organized Health Care Education/Training Program; ATTEND Student in an Organized Health Care Education/Training Program
DX: T82.110A Breakdown (mechanical) of cardiac electrode, initial encounter (principal); N17.0 Acute kidney failure with tubular necrosis; I50.23 Acute on chronic systolic (congestive) heart failure; I27.20 Pulmonary hypertension, unspecified; I95.9 Hypotension, unspecified; I13.0 Hypertensive heart and chronic kidney disease with heart failure and stage 1 through stage 4 chronic kidney disease, or unspecified chronic kidney disease; I42.0 Dilated cardiomyopathy; E11.22 Type 2 diabetes mellitus with diabetic chronic kidney disease; N18.9 Chronic kidney disease, unspecified; E78.5 Hyperlipidemia, unspecified; E87.6 Hypokalemia; Y71.2 Prosthetic and other implants, materials and accessory cardiovascular devices associated with adverse incidents; I25.10 Atherosclerotic heart disease of native coronary artery without angina pectoris; I34.0 Nonrheumatic mitral (valve) insufficiency; I48.91 Unspecified atrial fibrillation; Z51.5 Encounter for palliative care; Z91.013 Allergy to seafood; Z87.891 Personal history of nicotine dependence; Z83.3 Family history of diabetes mellitus; Z82.49 Family history of ischemic heart disease and other diseases of the circulatory system; Z95.0 Presence of cardiac pacemaker; Z86.711 Personal history of pulmonary embolism; Z91.148 Patient's other noncompliance with medication regimen for other reason; Z91.199 Patient's noncompliance with other medical treatment and regimen due to unspecified reason; Z82.3 Family history of stroke
CPT/HCPCS: 36415; 71045; 71250; 80048; 80053; 82962; 83880; 84484; 85025; 85379; 85610; 85730; 87426; 87804; 93005; 99291; G0378; J1815; J2405; J3480

== ENCOUNTER 2024-05-09 17:16 | Inpatient (IN) | payer MEDICAID ==
[~2024-05-09] VITALS: Ht 182.9 cm; Wt 92.2 kg
[~2024-05-09 17:16] MED LIST changes: -BUME1TAB3 PO; +BUME2TAB5 PO; +POTA-228 PO
[2024-05-09 19:33] LABS: Alanine Aminotransferase 20 U/L (7-40); Albumin 4.3 g/dL (3.2-4.8); Alkaline Phosphatase 164 U/L (46-116); Anion Gap 11 (5-15); Aspartate Aminotransferase 21 U/L (13-40); Bilirubin, Total 2.4 mg/dL (0.2-1.0); Blood Urea Nitrogen 18 mg/dL (9-23); Calcium 9.9 mg/dL (8.7-10.4); Carbon Dioxide 23 mmol/L (20-31); Chloride 99 mmol/L (98-107); Glucose 121 mg/dL (74-106); Potassium 3.2 mmol/L (3.5-5.1); Sodium 133 mmol/L (136-145)
[2024-05-09] MEDS: ASPirin 325 MG TAB PO ONE (19:34)
[2024-05-09 19:37] LABS: Basophils # (auto) 0.1 10 ^3/uL (0-0.2); Basophils % (auto) 0.9 % (0.0-2.0); Eosinophils # (auto) 0.4 10 ^3/uL (0-0.8); Eosinophils % (auto) 3.8 % (0.0-7.0); Hematocrit 41.5 % (41.0-53.0); Hemoglobin 14.5 g/dL (13.5-17.5); Lymphocytes # (auto) 1.2 10 ^3/uL (0.4-5.4); Lymphocytes % (auto) 12.8 % (10.0-50.0); Mean Corpuscular Hemoglobin 33.4 pg (28.0-32.0); Mean Corpuscular Hgb Conc. 34.9 g/dL (32.0-36.0); Mean Corpuscular Volume 95.5 fL (80.0-100.0); Monocytes # (auto) 0.7 10 ^3/uL (0-1.3); Monocytes % (auto) 7.9 % (0.0-12.0); Neutrophils % (auto) 74.6 % (37.0-80.0); Nucleated Red Blood Cells % 0.8 %; Platelet Count (auto) 203 10^3/uL (140-450); Red Blood Cells 4.35 10^6/uL (4.5-5.90); Red Cell Distribution Width 18.2 % (11.8-14.3); White Blood Cell 9.4 10^3/uL (4.4-10.8)
[2024-05-09 19:41] VITALS: PULSE 92; RESP 18; O2SAT 100
[2024-05-09] MEDS: NITROGLYCERIN 2% OINT 1GM PKG TD ONE (19:44)
[2024-05-09 20:24] LABS: Urine Bacteria None Seen /hpf (None Seen)
[2024-05-09 20:47] LABS: Urine Blood TRACE /uL (Negative); Urine Clarity Clear (Clear); Urine Color Yellow (Yellow); Urine Protein, UAD 1+ (Negative); Urine Specific Gravity 1.013 (1.001-1.035); Urine Urobilinogen 2 mg/dL (Negative); Urine WBC 1 /hpf (0 - 3); Urine pH 5.5 (5.0-9.0)
[2024-05-09] MEDS: POTASSIUM CHL 20 Meq TABLET PO ONE (21:19)
[2024-05-09] MEDS: FUROSEMIDE 20 MG/2 ML VIAL IV ONE (21:54)
[2024-05-09] MEDS: DEXTROSE (50%) 50ML SYRG IV ONE (22:15)
[2024-05-09] MEDS: ACCU-CHEK COMFORT CURVE STRIP VI ONE (22:15)
[2024-05-09] MEDS: ATORVASTATIN 20 MG TAB PO ONE (22:15)
[2024-05-09 22:46] LABS: Blood Alcohol < 3.0 mg/dL (<10); Magnesium 2.2 mg/dL (1.6-2.6)
[2024-05-09] MEDS: DIGOXIN 0.125 MG TAB PO ONE (23:45)
[2024-05-10] VITALS (14 sets, daily range): BP systolic 80–93; BP diastolic 48–65; PULSE 53–85; RESP 17–26; TEMP 97.5–98.1; O2SAT 94–98
[2024-05-10 00:01] LABS: COVID19 ANTIGEN SOFIA FIA NEGATIVE (NEGATIVE)
[2024-05-10 00:01] LABS: Rapid Influenza A Negative (Negative); Rapid Influenza B Negative (Negative)
[2024-05-10] MEDS: ONDANSETRON HCL 4 MG/2 ML VIAL IV PRN (00:10)
[2024-05-10] MEDS ORDERED: ACETAMINOPHEN 500 MG TAB PO PRN (00:45)
[2024-05-10] MEDS: AMIODARONE HCL 200 MG TAB PO SCH (01:02)
[2024-05-10] MEDS: SPIRONOLACTONE 25 MG TAB PO ONE ×2 (01:02→16:10)
[2024-05-10] MEDS: CARVEDILOL 3.125 MG TAB PO SCH (01:03)
[2024-05-10] MEDS: SACUBITRIL-VALSARTAN 24mg/26mg TAB PO SCH (01:03)
[2024-05-10] MEDS: ENOXAPARIN SOD 100 MG/1 ML SYRINGE SC ONE (01:29)
[2024-05-10] MEDS: MORPHINE SULFATE INJ 2 MG/ml SYRG IV PRN (01:37)
[2024-05-10 01:42] LABS: INR 1.54 (0.9-1.15); Prothrombin Time 15.8 sec (9.3-11.8)
[2024-05-10] MEDS: BUMETANIDE 1 MG TAB PO SCH (06:00)
[2024-05-10 07:12] LABS: Basophils # (auto) 0.1 10 ^3/uL (0-0.2); Basophils % (auto) 1.1 % (0.0-2.0); Eosinophils # (auto) 0.3 10 ^3/uL (0-0.8); Hemoglobin 13.2 g/dL (13.5-17.5); Lymphocytes # (auto) 0.9 10 ^3/uL (0.4-5.4); Lymphocytes % (auto) 14.6 % (10.0-50.0); Mean Corpuscular Hemoglobin 33.1 pg (28.0-32.0); Mean Corpuscular Hgb Conc. 33.9 g/dL (32.0-36.0); Mean Corpuscular Volume 97.6 fL (80.0-100.0); Monocytes # (auto) 0.5 10 ^3/uL (0-1.3); Monocytes % (auto) 8.8 % (0.0-12.0); Neutrophils # (auto) 4.3 10 ^3/uL (1.6-8.6); Neutrophils % (auto) 70.5 % (37.0-80.0); Nucleated Red Blood Cells % 0.2 %; Platelet Count (auto) 202 10^3/uL (140-450); Red Blood Cells 3.99 10^6/uL (4.5-5.90); Red Cell Distribution Width 18.5 % (11.8-14.3); White Blood Cell 6.1 10^3/uL (4.4-10.8)
[2024-05-10 07:26] LABS: Calcium 9.5 mg/dL (8.7-10.4); Chloride 101 mmol/L (98-107); Potassium 3.3 mmol/L (3.5-5.1); Sodium 136 mmol/L (136-145)
[2024-05-10 07:27] LABS: Anion Gap 9 (5-15); Carbon Dioxide 26 mmol/L (20-31)
[2024-05-10 07:32] LABS: BUN/Creatinine Ratio 18.5 (10.0-20.0); Blood Urea Nitrogen 20 mg/dL (9-23); Glucose 78 mg/dL (74-106)
[2024-05-10] MEDS: ASPirin 81 mg TAB PO SCH (09:51)
[2024-05-10] MEDS: SPIRONOLACTONE 25 MG TAB PO SCH (09:56)
[2024-05-10] MEDS: DIGOXIN 0.125 MG TAB PO SCH (09:56)
[2024-05-10] MEDS: POTASSIUM EFFERVESENT TAB 25 MEQ PO ONE (11:16)
[2024-05-10] MEDS: SODIUM CHLORIDE 0.9% 250 ML IV ONE ×2 (11:41→21:11)
[2024-05-10] MEDS: EMPAGLIFLOZIN 10 MG TAB PO ONE (15:30)
[2024-05-10] MEDS: CARVEDILOL 3.125 MG TAB PO ONE (15:30)
[2024-05-10 16:21] LABS: Base Excess 1.3 mmol/L (-2.0-3.0)
[2024-05-10] MEDS: HYDROcodone-ACET 5/325MG TAB PO PRN (18:59)
[2024-05-10] MEDS: ATORVASTATIN 20 MG TAB PO SCH (21:09)
[2024-05-10] MEDS: MAGNESIUM OXIDE 400 MG TAB PO SCH (21:09)
[2024-05-10] MEDS: POTASSIUM CHL 20 Meq TABLET PO SCH (21:09)
[2024-05-10] MEDS ORDERED: MIDO5TAB22 PO (21:14)
[2024-05-10] MEDS ORDERED: CARVEDILOL 3.125 MG TAB PO SCH (22:00)
[2024-05-11] VITALS (11 sets, daily range): BP systolic 77–99; BP diastolic 47–69; PULSE 61–78; RESP 16–22; TEMP 96.5–97.9; O2SAT 95–100
[2024-05-11 06:52] LABS: Basophils # (auto) 0.1 10 ^3/uL (0-0.2); Basophils % (auto) 1.3 % (0.0-2.0); Eosinophils # (auto) 0.3 10 ^3/uL (0-0.8); Eosinophils % (auto) 6.5 % (0.0-7.0); Hematocrit 42.8 % (41.0-53.0); Hemoglobin 14.4 g/dL (13.5-17.5); Lymphocytes # (auto) 0.8 10 ^3/uL (0.4-5.4); Lymphocytes % (auto) 16.5 % (10.0-50.0); Mean Corpuscular Hemoglobin 32.9 pg (28.0-32.0); Mean Corpuscular Hgb Conc. 33.7 g/dL (32.0-36.0); Mean Corpuscular Volume 97.8 fL (80.0-100.0); Monocytes # (auto) 0.6 10 ^3/uL (0-1.3); Monocytes % (auto) 12.3 % (0.0-12.0); Neutrophils # (auto) 3.2 10 ^3/uL (1.6-8.6); Neutrophils % (auto) 63.4 % (37.0-80.0); Nucleated Red Blood Cells % 0.1 %; Platelet Count (auto) 209 10^3/uL (140-450); Red Blood Cells 4.38 10^6/uL (4.5-5.90); Red Cell Distribution Width 18.6 % (11.8-14.3); White Blood Cell 5.1 10^3/uL (4.4-10.8)
[2024-05-11 07:10] LABS: Anion Gap 3 (5-15); Calcium 9.4 mg/dL (8.7-10.4); Carbon Dioxide 26 mmol/L (20-31); Chloride 104 mmol/L (98-107); Potassium 4.3 mmol/L (3.5-5.1); Sodium 133 mmol/L (136-145)
[2024-05-11 07:16] LABS: BUN/Creatinine Ratio 14.6 (10.0-20.0); Blood Urea Nitrogen 18 mg/dL (9-23); Glucose 81 mg/dL (74-106)
[2024-05-11] MEDS: EMPAGLIFLOZIN 10 MG TAB PO SCH (10:00)
[2024-05-11] MEDS ORDERED: SPIRONOLACTONE 25 MG TAB PO SCH (10:00)
[2024-05-11] MEDS: MIDODRINE HCL 10 MG TAB PO ONE (13:13)
[2024-05-11] MEDS: MIDODRINE HCL 10 MG TAB PO SCH (18:15)
[2024-05-11] MEDS: MELATONIN 5 MG TAB ONE (22:12)
[2024-05-11] MEDS: MELATONIN 5 MG TAB PO ONE (22:19)
[2024-05-12] VITALS (8 sets, daily range): BP systolic 95–119; BP diastolic 59–76; PULSE 48–76; RESP 18–22; TEMP 96.3–97.6; O2SAT 98–100
[2024-05-12] MEDS: NITROGLYCERIN 0.4 MG SL TAB SL PRN (07:19)
[2024-05-12 07:31] LABS: Anion Gap 6 (5-15); Carbon Dioxide 23 mmol/L (20-31); Chloride 101 mmol/L (98-107); Sodium 130 mmol/L (136-145)
[2024-05-12 07:32] LABS: Calcium 9.4 mg/dL (8.7-10.4)
[2024-05-12 07:37] LABS: BUN/Creatinine Ratio 16.1 (10.0-20.0); Blood Urea Nitrogen 20 mg/dL (9-23); Glucose 76 mg/dL (74-106)
[2024-05-12 07:41] LABS: Potassium 5.6 mmol/L (3.5-5.1)
[2024-05-12] MEDS ORDERED: PANT40T PO (12:26)
[2024-05-12] MEDS ORDERED: SIMV10TA20 PO (12:26)
[2024-05-12] MEDS ORDERED: MEXI150C15 PO (12:26)
[2024-05-12] MEDS: SODIUM ZIRCONIUM CYCL 10 GM PAK PO ONE (21:13)
[2024-05-12 21:21] LABS: Chloride 102 mmol/L (98-107); Potassium 5.3 mmol/L (3.5-5.1); Sodium 129 mmol/L (136-145)
[2024-05-12 21:22] LABS: Anion Gap 5 (5-15); Carbon Dioxide 22 mmol/L (20-31)
[2024-05-12 21:23] LABS: Calcium 9.7 mg/dL (8.7-10.4)
[2024-05-12 21:27] LABS: BUN/Creatinine Ratio 14.9 (10.0-20.0); Blood Urea Nitrogen 21 mg/dL (9-23); Glucose 96 mg/dL (74-106)
[2024-05-12] MEDS: MORPHINE SULFATE INJ 2 MG/ml SYRG IV PRN (21:29)
[2024-05-12] MEDS ORDERED: MELATONIN 5 MG TAB PO ONE (22:15)
[2024-05-13 01:00] VITALS: BP 108/78; PULSE 64; RESP 19; TEMP 98.6; O2SAT 100
[2024-05-13 05:00] VITALS: BP 101/60; PULSE 70; RESP 19; TEMP 98.5; O2SAT 95
[2024-05-13] MEDS: BUMETANIDE 1 MG TAB PO SCH (06:46)
[2024-05-13 07:30] LABS: Chloride 100 mmol/L (98-107); Potassium 4.1 mmol/L (3.5-5.1); Sodium 132 mmol/L (136-145)
[2024-05-13 07:31] LABS: Anion Gap 7 (5-15); Calcium 9.2 mg/dL (8.7-10.4); Carbon Dioxide 25 mmol/L (20-31)
[2024-05-13 07:36] LABS: Glucose 69 mg/dL (74-106)
[2024-05-13 07:51] LABS: BUN/Creatinine Ratio 14.5 (10.0-20.0); Blood Urea Nitrogen 20 mg/dL (9-23)
[2024-05-13 08:00] VITALS: PULSE 75
[2024-05-13 09:00] VITALS: BP 104/67; PULSE 68; RESP 20; TEMP 97.6; O2SAT 94
[2024-05-13 13:00] VITALS: BP 98/59; PULSE 63; RESP 20; TEMP 97.2; O2SAT 99
== END 2024-05-13 14:50 | disposition home or self-care (01) | DRG 426 ==
LOC: ER 17:16 → TELE 22:14 → TELE-WESTW 05-10 03:21
PROVIDERS: ATTEND Hospitalist
DX: E87.1 Hypo-osmolality and hyponatremia (principal); I50.23 Acute on chronic systolic (congestive) heart failure; I95.89 Other hypotension; I27.20 Pulmonary hypertension, unspecified; I42.8 Other cardiomyopathies; I13.0 Hypertensive heart and chronic kidney disease with heart failure and stage 1 through stage 4 chronic kidney disease, or unspecified chronic kidney disease; J81.1 Chronic pulmonary edema; I25.5 Ischemic cardiomyopathy; I25.118 Atherosclerotic heart disease of native coronary artery with other forms of angina pectoris; Z20.822 Contact with and (suspected) exposure to COVID-19; E78.5 Hyperlipidemia, unspecified; I34.0 Nonrheumatic mitral (valve) insufficiency; E11.22 Type 2 diabetes mellitus with diabetic chronic kidney disease; E87.6 Hypokalemia; N18.9 Chronic kidney disease, unspecified; I48.0 Paroxysmal atrial fibrillation; Z95.810 Presence of automatic (implantable) cardiac defibrillator; Z91.013 Allergy to seafood; Z87.891 Personal history of nicotine dependence; Z83.3 Family history of diabetes mellitus; Z82.49 Family history of ischemic heart disease and other diseases of the circulatory system; Z82.3 Family history of stroke; Z79.899 Other long term (current) drug therapy; Z79.82 Long term (current) use of aspirin
CPT/HCPCS: 36415; 36600; 70450; 71045; 80048; 80053; 80320; 81001; 82040; 82805; 82962; 83605; 83735; 83880; 84443; 84484; 85025; 85610; 85730; 87081; 87426; 87804; 93005; G0378; G0463; J2405

== ENCOUNTER 2024-06-19 16:00 | Inpatient (IN) | payer MEDICAID ==
[~2024-06-19] VITALS: Ht 182.9 cm; Wt 96.7 kg
[~2024-06-19 16:00] MED LIST changes: -ATOR40TA52 PO; +MEXI150C15 PO; +MIDO5TAB22 PO; +PANT40T PO; +SIMV10TA20 PO
--- NOTE | 2024-06-19 16:12 | ED.PDOC ---
HPI Comments 64y M who presents to the ED via EMS for chief complaint of chest pain. Pt states he has been having L sided chest pain for the past 4 days. Pt states he was seen at [facility] and hospitalized and discharged 2 days prior with lasix. Pt states over the past 2 days, despite taking his lasix, he has continued to have chest pain. Pt states earlier this AM, while he was walking from restroom to his bedroom, pt felt dizzy and felt he was going to have a syncopal but states he felt to his knees with no associated loss of consciousness and afterwards, called EMS to the scene. Pt now in the ED, states he is having L sided chest pain, constant, radiating to the L arm, rating the pain 7/10, with no associated exacerbating or relieving factors. Pt otherwise states he is having abdominal pain with noted abdominal distention from his CHF but otherwise denies shortness of breath, diaphoresis, palpitations, nausea, vomiting, fever, cough or chills. Pt otherwise states he has been to [facility] multiple times for similar complaints. Pt otherwise denies any other symptoms at this time. Chief Complaint: chest pain Time Seen by MD: 16:08 Primary Care Provider: GABRIELA Reviewed Notes: Nurses Notes, Medications, Allergies Allergies: Coded Allergies: Shellfish Allergy (Unverified Allergy, Severe, 09/11/23) CRAB Uncoded Allergies: CRAB (Allergy, Severe, 08/06/17) Home Meds Active Scripts Potassium Chloride (Potassium Chloride ER) 10 Meq Tab, 20 MEQ PO DAILY for 30 Days, #60 TAB Prov:MEME JAIME MD 04/30/24 Bumetanide (Bumetanide) 2 Mg Tab, 1 TAB PO BID for 30 Days, #60 TAB 1 Refill Prov:MEME JAIME MD 04/30/24 Amiodarone HCl (Amiodarone HCl) 200 Mg Tab, 200 MG PO Q12HR for 30 Days, #60 TAB Prov:ESTEVAN BRAN RESIDENT 02/07/24 Acetaminophen (Acetaminophen) 325 Mg Tab, 325 MG PO Q4HP PRN for 10 Days, #50 TAB Prov:ESTEVAN BRAN RESIDENT 02/07/24 Reported Medications Pantoprazole Sodium Sesquihydr (Pantoprazole Sodium) 40 Mg Tab, 40 MG PO DAILY, TAB 05/12/24 Mexiletine HCl (Mexiletine Hydrochloride) 150 Mg Cap, 150 MG PO TID, CAP 05/12/24 Simvastatin (Simvastatin) 10 Mg Tab, 10 MG PO DAILY, MG 05/12/24 Midodrine HCl (Midodrine Hydrochloride) 5 Mg Tab, 2 TAB PO TID, TAB 05/10/24 Cholecalciferol (VITAMIN D3) 2,000 Unit Tab, 1 TAB PO DAILY 01/09/24 Digoxin (Digoxin) 125 Mcg Tab, 1 TAB PO DAILY 01/09/24 Vericiguat (Verquvo) 10 Mg Tab, 1 TAB PO DAILY 01/09/24 Ivabradine Hydrochloride (Corlanor) 5 Mg Tab, 1 TAB PO BID 08/16/23 Spironolactone (Spironolactone) 25 Mg Tab, 1 TAB PO BID 05/15/23 Sacubitril-Valsartan (Entresto 24-26 mg) 1 Tab Tab, 1 TAB PO BID, TAB 05/15/23 Nitroglycerin (NTROSTAT SUBLINGUAL) 0.4 Mg Sl, 0.4 MG SL PRN, TAB *MAY REPEAT EVERY 5 MINUTES X 3 TOTAL IF NO RELIEF, INITIATE ANALGESIC THERAPY. NOTIFY PHYSICIAN *Do not crush. 05/15/23 Dapagliflozin Propanediol (Farxiga) 10 Mg Tab, 10 MG PO DAILY, TAB 05/15/23 Carvedilol (Carvedilol) 3.125 Mg Tab, 3.125 MG PO BID, MG 05/15/23 Aspirin (Aspir-Low) 81 Mg Tab, 81 MG PO DAILY, MG 05/15/23 Information Source: Patient, Emergency Med Personnel Mode of Arrival: EMS Brought in by: EMS Severity: Moderate Timing: Days Duration: Since onset Prehospital treatment: None Location: Chest (L) Radiation: Arm (L) Quality: Pressure Onset: At Rest Cardiac Risk Factors: HTN, Diabetes PE Risk Factors: None History of: Similar pain in past Modifying Factors: Nothing Associated Signs and Symptoms: Abdominal Pain Past Medical History PAST MEDICAL HISTORY: AFIB, Angina, CAD, CHF, DM, High Lipids, HTN, PE Surgical History: Pacemaker, PTCA Family History Family History: Reviewed,noncontributory to illness, Family hx of DM, Family hx of heart bhavik, Family hx of HTN Social History Smoker: Quit Greater Than 1 Year, Cigarettes Alcohol: Sober Drugs: Denies Drug Use Lives In: Home Constitutional: denies: chills, diaphoresis, fatigue, fever, malaise, sweats, weakness, others EENTM: denies: blurred vision, double vision, ear bleeding, ear discharge, ear drainage, ear pain, ear ringing, eye pain, eye redness, hearing loss, mouth pain, mouth swelling, nasal discharge, nose bleeding, nose congestion, nose pain, photophobia, tearing, throat pain, throat swelling, voice changes, others Respiratory: denies: cough, hemoptysis, orthopnea, SOB at rest, shortness of breath, SOB with excertion, stridor, wheezing, others Cardiovascular: reports: chest pain; denies: dizzy spells, diaphoresis, Dyspnea on exertion, edema, irregular heart beat, left arm pain, lightheadedness, palpitations, PND, syncope, others Gastrointestinal: reports: abdominal pain; denies: abdomen distended, blood streaked bowels, constipated, diarrhea, dysphagia, difficulty swallowing, hematemesis, melena, nausea, poor appetite, poor fluid intake, rectal bleeding, rectal pain, vomiting, others Genitourinary: denies: burning, dysuria, flank pain, frequency, hematuria, incontinence, penile discharge, penile sore, pain, testicle pain, testicle swelling, urgency, others Neurological: denies: dizziness, fainting, headache, left sided numbness, left sided weakness, numbness, paresthesia, pre-existing deficit, right sided numbness, right sided weakness, seizure, speech problems, tingling, tremors, weakness, others Musculoskeletal: denies: back pain, gout, joint pain, joint swelling, muscle pain, muscle stiffness, neck pain, others Integumetry: denies: bruises, change in color, change in hair/nails, dryness, laceration, lesions, lumps, rash, wounds, others Allergic/Immunocompromised: denies: Difficulty Healing, Frequent Infections, Hives, Itching, others Hematologic/Lymphatic: denies: anemia, blood clots, easy bleeding, easy bruising, swollen glands, others Endocrine: denies: excessive hunger, excessive sweating, excessive thirst, excessive urination, flushing, intolerance to cold, intolerance to heat, un explained weight gain, unexplained weight loss, others Psychiatric: denies: anxiety, bipolar disorder, depression, hopeless, panic disorder, schizophrenia, sleepless, suicidal, others All Other Systems: Reviewed and Negative Physical Exam General Appearance: Moderate Distress HEENT: Normal ENT Inspection, Pharynx Normal, TMs Normal Neck: Full Range of Motion, Non-Tender, Normal, Normal Inspection Respiratory: Chest Non-Tender, Lungs Clear, No Accessory Muscle Use, No Respiratory Distress, Normal Breath Sounds Cardiovascular: No Edema, No JVD, No Murmur, No Gallop, Normal Peripheral Pulses, Regular Rate/Rhythm Breast Exam: Deferred Gastrointestinal: Hepatomegaly, Normal Bowel Sounds, Soft Genitalia: Deferred Pelvic: Deferred Rectal: Deferred Extremities: No calf tenderness, Normal capillary refill, Pedal edema Musculoskeletal : Apperance: Normal Neurologic: Alert, roller mill operator II-XII nml as Tested, Motor Weakness, Normal Affect, Normal Mood, No Sensory Deficits Cerebellar Function: Normal Reflexes: Normal Skin: Dry, Normal Color, Warm Lymphatic: No Adenopathy EKG EKG : Pulse Rate (adult): 88 [place]: Normal Cardiac Rhythm: NSR Block: None Hypertrophy: LAE ST: Normal Was a procedure done? Was a procedure done?: No CP Differential Dx Differential Diagnosis: A-fib, A-Flutter, Angina, Atrial Dysrhythmia, Electrolyte Disorder, Heart Failure, Pulmonary Embolus, PVC's Differential Diagnosis: HTN Essential Differential Diagnosis: Chest Wall Pain, Pneumonia X-Ray, Labs, Meds, VS Vital Signs Date Time Temp Pulse Resp B/P (MAP) Pulse Ox O2 Delivery O2 Flow Rate FiO2 06/19/24 16:53 86 25 100 Room Air* 0 21 06/19/24 16:44 82 06/19/24 16:38 98.0 86 25 123/83 (96) 100 98.0 06/19/24 16:08 97.9 84 20 113/80 (91) 18 06/19/24 16:03 88 Lab Test 06/19/24 16:12 Range/Units White Blood Count 6.5 4.4-10.8 10^3/uL Red Blood Count 4.28 L 4.5-5.90 10^6/uL Hemoglobin 13.8 13.5-17.5 g/dL Hematocrit 41.4 41.0-53.0 % Mean Corpuscular Volume 96.7 80.0-100.0 fL Mean Corpuscular Hemoglobin 32.3 H 28.0-32.0 pg Mean Corpuscular Hemoglobin Concent 33.4 32.0-36.0 g/dL Red Cell Distribution Width 16.7 H 11.8-14.3 % Platelet Count 187 140-450 10^3/uL Mean Platelet Volume 8.6 6.9-10.8 fL Neutrophils (%) (Auto) 72.2 37.0-80.0 % Lymphocytes (%) (Auto) 11.0 10.0-50.0 % Monocytes (%) (Auto) 15.0 H 0.0-12.0 % Eosinophils (%) (Auto) 1.0 0.0-7.0 % Basophils (%) (Auto) 0.8 0.0-2.0 % Neutrophils # (Auto) 4.7 1.6-8.6 10 ^3/uL Lymphocytes # (Auto) 0.7 0.4-5.4 10 ^3/uL Monocytes # (Auto) 1.0 0-1.3 10 ^3/uL Eosinophils # (Auto) 0.1 0-0.8 10 ^3/uL Basophils # (Auto) 0 0-0.2 10 ^3/uL Nucleated Red Blood Cells 0.2 % Sodium Level 125 L 136-145 mmol/L Potassium Level 4.7 3.5-5.1 mmol/L Chloride Level 91 L 98-107 mmol/L Carbon Dioxide Level 22 20-31 mmol/L Anion Gap 12 5-15 Blood Urea Nitrogen 30 H 9-23 mg/dL Creatinine 1.20 0.700-1.30 mg/dL Glomerular Filtration Rate Calc 68 >90 mL/min BUN/Creatinine Ratio 25.0 H 10.0-20.0 Serum Glucose 105 74-106 mg/dL Calcium Level 9.8 8.7-10.4 mg/dL Troponin I High Sensitivity 28 </=54 ng/L B-Type Natriuretic Peptide 4388.74 0-100 pg/mL IV Hep-Lock was established The patient was given a morphine 4 mg IV push for pain The patient was given Zofran 4 mg IV push for the nausea The patient was given Lasix 40 mg IV push The BNP is elevated at 4388 The patient's CBC and chemistry panel is within normal limits The patient was being admitted at this time. Images Reviewed?: Images reviewed and evaluated by me Time of 1ST Reevaluation: 16:40 Reevaluation 1ST: Unchanged Patient Education/Counseling: Diagnosis, Treatment, Prognosis Family Education/Counseling: No Family Present Departure 1 Departure Time of Disposition: 17:28 Impression: Primary Impression: Acute on chronic systolic (congestive) heart failure Additional Impression: Acute chest pain Disposition: ADMITTED INPATIENT Admit to: Tele Condition: Fair Critical Care Note Critical Care Time?: Yes (35 min-critical care time only) Stability Stability form required: Yes Unstable for transfer: Telemetry monitoring (Telemetry monitoring required), ED Physician Assesment (Clinical assesment) Heart Score Heart Score: Heart Score Response (Comments) Value History Moderate Suspicious 1 EKG Normal 0 Age 45-64 1 Risk Factors >3 or Hx ASHD 2 Troponin Normal limit 0 Total 4 I personally scribed for ANA HAYES MD ([email or web address]) on 06/19/24 at 16:12. Electronically submitted by Jai Mccauley ([email or web address]). ANA HAYES MD Jun 19, 2024 16:12
[2024-06-19 16:23] LABS: Basophils # (auto) 0 10 ^3/uL (0-0.2); Basophils % (auto) 0.8 % (0.0-2.0); Eosinophils # (auto) 0.1 10 ^3/uL (0-0.8); Hematocrit 41.4 % (41.0-53.0); Hemoglobin 13.8 g/dL (13.5-17.5); Lymphocytes # (auto) 0.7 10 ^3/uL (0.4-5.4); Mean Corpuscular Hemoglobin 32.3 pg (28.0-32.0); Mean Corpuscular Hgb Conc. 33.4 g/dL (32.0-36.0); Mean Corpuscular Volume 96.7 fL (80.0-100.0); Neutrophils # (auto) 4.7 10 ^3/uL (1.6-8.6); Neutrophils % (auto) 72.2 % (37.0-80.0); Nucleated Red Blood Cells % 0.2 %; Platelet Count (auto) 187 10^3/uL (140-450); Red Blood Cells 4.28 10^6/uL (4.5-5.90); Red Cell Distribution Width 16.7 % (11.8-14.3); White Blood Cell 6.5 10^3/uL (4.4-10.8)
[2024-06-19 16:33] LABS: Potassium 4.7 mmol/L (3.5-5.1)
[2024-06-19 16:35] LABS: Anion Gap 12 (5-15); Calcium 9.8 mg/dL (8.7-10.4); Carbon Dioxide 22 mmol/L (20-31)
[2024-06-19 16:40] LABS: Glucose 105 mg/dL (74-106)
[2024-06-19 16:41] LABS: Blood Urea Nitrogen 30 mg/dL (9-23); Chloride 91 mmol/L (98-107); Sodium 125 mmol/L (136-145)
--- NOTE | 2024-06-19 16:52 | DVH ---
CHEST RADIOGRAPH Indication: CP Technique: Frontal and lateral view of the chest was obtained Comparison: XY CHEST TWO VIEWS ROUTINE on DOS: 05/30/23, XY CHEST TWO VIEWS ROUTINE on DOS: 05/14/23, XY CHEST TWO VIEWS ROUTINE on DOS: 04/04/23 FINDINGS: Lines and Tubes: Pacemaker in place unchanged Lungs: Clear Pleura: No effusion. No pneumothorax. Cardiomediastinal contours: Cardiomegaly without findings of congestive failure consider possibility of pericardial effusion or cardiomyopathy. Bones: Unremarkable IMPRESSION: 1. Cardiomegaly without findings of congestive failure. Consider possibility of pericardial effusion or cardiomyopathy.
[2024-06-19 16:53] VITALS: PULSE 86; RESP 25; O2SAT 100
--- NOTE | 2024-06-19 16:53 | ECG ---
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
--- NOTE | 2024-06-19 17:01 | ECG ---
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
[2024-06-19] MEDS: ASPirin 81 mg TAB PO ONE (18:07)
[2024-06-19] MEDS: FUROSEMIDE 40 MG/4 ML VIAL IV ONE (18:07)
[2024-06-19 18:36] LABS: Urine Bacteria None Seen /hpf (None Seen)
[2024-06-19 18:49] LABS: Urine Blood Negative /uL (Negative); Urine Clarity Clear (Clear); Urine Color Yellow (Yellow); Urine Hyaline Cast MANY /lpf (0 - 2); Urine Mucus FEW (None Seen); Urine Protein, UAD 1+ (Negative); Urine Specific Gravity 1.016 (1.001-1.035); Urine Urobilinogen 3 mg/dL (Negative); Urine WBC 1 /hpf (0 - 3); Urine pH 5.5 (5.0-9.0)
[2024-06-19 19:30] VITALS: PULSE 86; RESP 23; O2SAT 100
[2024-06-19] MEDS ORDERED: MORPHINE SULFATE INJ 2 MG/ml SYRG IV PRN (20:30)
[2024-06-19] MEDS ORDERED: DOCUSATE SOD 100 MG CAP PO PRN (20:30)
[2024-06-19] MEDS ORDERED: ACETAMINOPHEN 325 MG TAB PO PRN (20:30)
[2024-06-19] MEDS ORDERED: NITROGLYCERIN 0.4 MG SL TAB SL PRN (20:30)
[2024-06-19] MEDS: MORPHINE SULFATE INJ 2 MG/ml SYRG IV PRN (20:42)
[2024-06-19] MEDS: ONDANSETRON HCL 4 MG/2 ML VIAL IV PRN (20:50)
[2024-06-19 21:02] LABS: Magnesium 2.3 mg/dL (1.6-2.6)
[2024-06-19 21:04] LABS: Phosphorus 3.2 mg/dL (2.4-5.1)
[2024-06-19] MEDS: SODIUM CHLOR 0.9% PF (SALINE LOCK) 10ML VIAL/SYR IV SCH (21:46)
--- NOTE | 2024-06-19 21:59 | DVHHPRES ---
History of Present Illness Resident Creating Document: DAX NEWMAN RESIDENT History of Present Illness Patient is 64 years old male with past medical history of HFreF EF <10% s/p biventricular Biotronik ICD since 2018 with LV lead fracture, nonischemic dilated cardiomyopathy severe pulmonary hypertension, history of V-tach, CAD status post 4 JAMEL, diabetes mellitus type 2, former polysubstance dependence, severe MR, paroxysmal AFib, hypertension and hyperlipidemia came with a complaint of chest pain for last 2-3 days. Patient reported having chest pain for last 2-3 days, sharp in nature, sudden onset, 7/10, intermittent, no radiation, decreased with pain killer like morphine. Patient also reported benavidez ving worsening shortness of breath for last couple of days, worsened with exertion, patient also reported orthopnea and PND. Patient reported that his abdomen is distended for last 2-3 days with some abdominal pain, sharp, 10/10, relieved with some pain medication. Patient also endorsed some cough without phlegm for last 2 days. Patient denied any fever, constipation, diarrhea, dysuria, dizziness, change in vision or slurring speech. Last echocardiogram completed on 02/08/2024 showed LVEF less than 10%. TRV 3.3, RVSP 60. Severely dilated LV/RV/severe TR. Previously patient refused hospice care and is not a good candidate for heart transplantation as per operations accountant.Patient has LV lead fracture for which he reports that [facility] stated that the patient has a high-risk candidate for complications and adverse outcomes for lead revision and exchange. Initial lab workup revealed sodium hypoglycemia sodium 125, low GFR 68, BNP 4388, troponin I 28>30. EKG revealed-Sinus rhythm, Prolonged GA interval, Probable left atrial enlargement, Nonspecific IVCD with LAD, Left ventricular hypertrophy, Borderline T abnormalities, lateral leads. CXR revealed- Cardiomegaly without findings of congestive failure. Consider possibility of pericardial effusion or cardiomyopathy. Past Medical History HFreF EF <10% s/p biventricular Biotronik ICD since 2018 with LV lead fracture, nonischemic dilated cardiomyopathy severe pulmonary hypertension, history of V- tach, CAD status post 4 JAMEL, diabetes mellitus type 2, former polysubstance dependence, severe MR, paroxysmal AFib, hypertension and hyperlipidemia Past Surgical History ICD placement, PTCA Family History Mom had hypertension, Past Social History Ex-smoker, ex alcoholic, ex substance abuse Review of Systems Review of Systems Allergy- dion, shellfish Patient was seen today at the bedside. Patient reported feeling short of breath, abdominal bloating Respiratory- denies r wheezing Gastrointestinal- denies any rectal bleeding, nausea or vomiting Musculoskeletal-denies acute joint swelling or tenderness or redness Neurological- denies acute dysarthria, dysphagia, change in vision Psychiatry- denies depression or SI or HI Skin- denies acute rash or purpura Allergies: Coded Allergies: Shellfish Allergy (Unverified Allergy, Severe, 09/11/23) CRAB Uncoded Allergies: CRAB (Allergy, Severe, 08/06/17) Medications Current Medications Medications Dose Ordered Sig/Brian Route Start Time Stop Time Status Last Admin Dose Admin Sodium Chloride 10 ml Q8HR IV 06/19/24 22:00 06/19/24 21:46 10 ML Ondansetron HCl 4 mg Q4HP PRN IV 06/19/24 20:30 06/19/24 20:50 4 MG Docusate Sodium 100 mg BIDPRN PRN PO 06/19/24 20:30 Enoxaparin Sodium 40 mg DAILY SC 06/20/24 10:00 Acetaminophen 650 mg Q6HP PRN PO 06/19/24 20:30 Morphine Sulfate 2 mg Q4HPRN PRN IV 06/19/24 20:30 06/19/24 20:42 2 MG Nitroglycerin 0.4 mg Q5MINP PRN SL 06/19/24 20:30 Morphine Sulfate 2 mg Q30M PRN IV 06/19/24 20:30 Exam Vital Signs Vital Signs Date Time Temp Pulse Resp B/P (MAP) Pulse Ox O2 Delivery O2 Flow Rate FiO2 06/19/24 20:42 81 19 119/75 06/19/24 19:30 100 Room Air* 0 21 06/19/24 19:22 98.0 98.0 Exam General examination- restless, awake, alert, oriented, conversant HEENT- PEERLA, no acute nasal discharge Cardiovascular- S1-S2 muffled, rate and rhythm regular, murmur + Respiratory-bilateral lung crackles Gastrointestinal-nontender, bowel sound+. Nondistended Musculoskeletal-no acute joint swelling or tenderness or redness# Lower extremity- Neurological- cranial nerves intact, no acute dysarthria or dysphagia Psychiatry- denies depression or SI or HI Skin- no acute rash or purpura Labs/Xrays Labs Test 06/19/24 20:02 06/19/24 18:35 06/19/24 16:12 Range/Units Troponin I High Sensitivity 31 </=54 ng/L Urine Color Yellow Yellow Urine Clarity Clear Clear Urine pH 5.5 5.0-9.0 Urine Specific [facility] 1.016 1.001-1.035 Urine Protein 1+ H Negative Urine Ketones Negative Negative Urine Blood Negative Negative /uL Urine Nitrite Negative Negative Urine Bilirubin Negative Negative Urine Urobilinogen 3 H Negative mg/dL Urine Leukocyte Esterase Negative Negative /uL Urine RBC 1 0 - 3 /hpf Urine WBC 1 0 - 3 /hpf Urine Squamous Epithelial Cells Few <5 /hpf Urine Bacteria None seen None Seen /hpf Urine Hyaline Casts Many 0 - 2 /lpf Urine Mucus Few None Seen Urine Glucose 1+ H Normal mg/dL White Blood Count 6.5 4.4-10.8 10^3/uL Red Blood Count 4.28 L 4.5-5.90 10^6/uL Hemoglobin 13.8 13.5-17.5 g/dL Hematocrit 41.4 41.0-53.0 % Mean Corpuscular Volume 96.7 80.0-100.0 fL Mean Corpuscular Hemoglobin 32.3 H 28.0-32.0 pg Mean Corpuscular Hemoglobin Concent 33.4 32.0-36.0 g/dL Red Cell Distribution Width 16.7 H 11.8-14.3 % Platelet Count 187 140-450 10^3/uL Mean Platelet Volume 8.6 6.9-10.8 fL Neutrophils (%) (Auto) 72.2 37.0-80.0 % Lymphocytes (%) (Auto) 11.0 10.0-50.0 % Monocytes (%) (Auto) 15.0 H 0.0-12.0 % Eosinophils (%) (Auto) 1.0 0.0-7.0 % Basophils (%) (Auto) 0.8 0.0-2.0 % Neutrophils # (Auto) 4.7 1.6-8.6 10 ^3/uL Lymphocytes # (Auto) 0.7 0.4-5.4 10 ^3/uL Monocytes # (Auto) 1.0 0-1.3 10 ^3/uL Eosinophils # (Auto) 0.1 0-0.8 10 ^3/uL Basophils # (Auto) 0 0-0.2 10 ^3/uL Nucleated Red Blood Cells 0.2 % Sodium Level 125 L 136-145 mmol/L Potassium Level 4.7 3.5-5.1 mmol/L Chloride Level 91 L 98-107 mmol/L Carbon Dioxide Level 22 20-31 mmol/L Anion Gap 12 5-15 Blood Urea Nitrogen 30 H 9-23 mg/dL Creatinine 1.20 0.700-1.30 mg/dL Glomerular Filtration Rate Calc 68 >90 mL/min BUN/Creatinine Ratio 25.0 H 10.0-20.0 Serum Glucose 105 74-106 mg/dL Calcium Level 9.8 8.7-10.4 mg/dL Phosphorus Level 3.2 2.4-5.1 mg/dL Magnesium Level 2.3 1.6-2.6 mg/dL B-Type Natriuretic Peptide 4388.74 0-100 pg/mL Assessment/Plan Assessment/Plan # acute chest pain likely due to pericarditis -rule out acute coronary syndrome -troponin I WNL -BNP 4388 -EKG -CXR-Cardiomegaly without findings of congestive failure. Consider possibility of pericardial effusion or cardiomyopathy. -morphine p.r.n. as prescribed -hold Lasix for tonight to avoid hypotension -Last echocardiogram completed on 02/08/2024 showed LVEF less than 10%. TRV 3.3, RVSP 60. Severely dilated LV/RV/severe TR. -Previously patient refused hospice care and is not a good candidate for heart transplantation as per operations accountant. -Patient has LV lead fracture for which he reports that [facility] stated that the patient has a high-risk candidate for complications and adverse outcomes for lead revision and exchange. -ordered cardiology consult for Dr. Villeda -NPO until further order # acute on chronic hypoxic respiratory failure likely due to acute on chronic HFrEF --troponin I WNL -BNP 4388 -EKG -CXR-Cardiomegaly without findings of congestive failure. Consider possibility of pericardial effusion or cardiomyopathy. -continue aspirin 81 mg q.d. -nitroglycerin p.r.n. -morphine p.r.n. as prescribed -hold Lasix for tonight to avoid hypotension -Last echocardiogram completed on 02/08/2024 showed LVEF less than 10%. TRV 3.3, RVSP 60. Severely dilated LV/RV/severe TR. -Previously patient refused hospice care and is not a good candidate for heart transplantation as per operations accountant. -Patient has LV lead fracture for which he reports that [facility] stated that the patient has a high-risk candidate for complications and adverse outcomes for lead revision and exchange. -ordered cardiology consult for Dr. Christiana JAMES until further order #acute on chronic HFrEF --troponin I WNL -BNP 4388 -EKG -CXR-Cardiomegaly without findings of congestive failure. Consider possibility of pericardial effusion or cardiomyopathy. -continue aspirin 81 mg q.d. -nitroglycerin p.r.n. -morphine p.r.n. as prescribed -hold Lasix for tonight to avoid hypotension -Last echocardiogram completed on 02/08/2024 showed LVEF less than 10%. TRV 3.3, RVSP 60. Severely dilated LV/RV/severe TR. -Previously patient refused hospice care and is not a good candidate for heart transplantation as per operations accountant. -Patient has LV lead fracture for which he reports that [facility] stated that the patient has a high-risk candidate for complications and adverse outcomes for lead revision and exchange. -ordered cardiology consult for Dr. Christiana JAMES until further order # suspected pericarditis with Pericardial effusion --CXR-Cardiomegaly without findings of congestive failure. Consider possibility of pericardial effusion or cardiomyopathy. -pending cardiology consult -continue ibuprofen as prescribed and colchicine as prescribed -pending echo 2D # suspected ascites -CT abdomen without contrast # dilation on hyponatremia -sodium 125 -patient history of CHF, fluid overload -monitor CMP -fluid restriction #nonischemic dilated cardiomyopathy -continue current management #Pulmonary hypertension -continue current management # CAD status post 4 JAMEL -continue aspirin 81 mg q.d. -atorvastatin 40 mg q.h.s. -nitroglycerin p.r.n. -morphine p.r.n. as prescribed #Diabetes mellitus type 2 -sliding scale as prescribed #Paroxysmal atrial fibrillation- CHADS2 Vasc score 04 HASBLED 1 -monitor -continue amiodarone 200 mg p.o. q.12 hours #Hypertension -continue current management #history of V-tach -continue mexiletine 150 mg p.o. b.i.d. #Hyperlipidemia -atorvastatin 40 mg q.h.s. # former polysubstance dependence Goals of care/advance care planning; FULL CODE; discussed with the patient >15 minutes PUD prophylaxis: Pantoprazole DVT prophylaxis: Lovenox PCP-Dr. Peralta Cardiology-Dr. Medellin Plan discussed with Dr. Llamas, nursing staff, patient Total time spent on patient evaluation, chart review, assessment and plan, discussion discussion >30 minutes Plan discussed with: Patient critical care time 56 mins Plan discussed with: Patient, Other (RN) My Orders Orders - DAX NEWMAN RESIDENT Procedure Category Date Status Time Admit ADMIT 06/19/24 Transmitted 20:27 Code Status CODE 06/19/24 Transmitted 20:27 Sodium Chloride Lock PHA 06/19/24 In Process (Saline Lock Ns) 22:00 Ondansetron Hcl PHA 06/19/24 In Process (Zofran) 20:30 Docusate Sodium PHA 06/19/24 In Process Capsule (Colace 20:30 Enoxaparin Sodium PHA 06/20/24 In Process (Lovenox) 10:00 Complete Blood Count LAB 06/20/24 Verified 04:00 Comprehensive LAB 06/20/24 Verified Metabolic Panel 04:00 Cardiac DIET 06/20/24 Transmitted Diet-2gna,Lofat,Lochol Breakfast Echo 2d Mode Cardiac US 06/19/24 Logged DOP 20:27 Acetaminophen Tablet PHA 06/19/24 In Process (Tylenol Tablet) 20:30 Morphine Sulfate PHA 06/19/24 In Process Injection 20:30 Nitroglycerin PHA 06/19/24 In Process Sublingual (Ntrostat 20:30 Morphine Sulfate PHA 06/19/24 In Process Injection 20:30 Oxygen By Nasal RT 06/19/24 Transmitted Cannula 20:27 Stat Ekg For Chest JIMMIE 06/19/24 In Process Pain 20:27 Notify Md Of Changes JIMMIE 06/19/24 In Process From Base 20:27 Lap Winding Machine Operator For JIMMIE 06/19/24 In Process 24 Hours 20:27 Emergency Dysrhythmia JIMMIE 06/19/24 In Process Protocol 20:27 Rhythm Strips Once JIMMIE 06/19/24 In Process Every Shift 20:27 Hemoglobin A1c LAB 06/19/24 In Process 20:39 Lipid Panel LAB 06/20/24 Verified 04:00 Thyroid Stimulating LAB 06/19/24 In Process Hormone 20:39 Date of Service: Jun 19, 2024 Billing Provider: DUYEN LLAMAS MD Common Visit Codes: 23835-[id number] CARE 30-74 MIN DAX NEWMAN RESIDENT Jun 19, 2024 21:59 DUYEN LLAMAS MD Jun 20, 2024 08:05
[2024-06-19 22:29] LABS: INR 1.94 (0.9-1.15); Prothrombin Time 19.6 sec (9.3-11.8)
[2024-06-19] MEDS ORDERED: DEXTROSE (50%) 50ML SYRG IV PRN (22:45)
[2024-06-19 22:48] LABS: Barbiturate Scree,Urine Neg (NEGATIVE)
[2024-06-19 22:53] LABS: Amphetamine Screen, Urine Neg (NEGATIVE); Benzodiazephine Screen, Urine Neg (NEGATIVE); Cannabinoid Screen, Urine Pos (NEGATIVE); Cocaine Screen, Urine Neg (NEGATIVE); Opiate Scree,Urine Neg (NEGATIVE); Phencyclidine Screen, Urine Neg (NEGATIVE)
[2024-06-19 23:15] VITALS: BP 119/79; PULSE 78; RESP 17; TEMP 96.8; O2SAT 99
[2024-06-19 23:45] VITALS: O2SAT 99
[2024-06-20] VITALS (8 sets, daily range): BP systolic 106–122; BP diastolic 68–87; PULSE 68–111; RESP 16–20; TEMP 96.7–98.8; O2SAT 98–100
[2024-06-20] MEDS: ATORVASTATIN 20 MG TAB PO ONE (00:23)
[2024-06-20] MEDS ORDERED: MEXILETINE HYDROCHLORIDE 150 MG CAP PO SCH (06:00)
[2024-06-20] MEDS: InsuLIN REG 1unit/0.01ml Soln (100units/ml) SC SCH (06:32)
[2024-06-20] MEDS: ACCU-CHEK COMFORT CURVE STRIP VI SCH (06:32)
[2024-06-20] MEDS: IBUPROFEN 600 MG TAB PO SCH (06:47)
[2024-06-20] MEDS: PANTOPRAZOLE 40 MG TAB PO SCH (06:47)
[2024-06-20 08:10] LABS: Basophils # (auto) 0.1 10 ^3/uL (0-0.2); Basophils % (auto) 0.9 % (0.0-2.0); Eosinophils # (auto) 0.1 10 ^3/uL (0-0.8); Eosinophils % (auto) 1.4 % (0.0-7.0); Hematocrit 40.1 % (41.0-53.0); Hemoglobin 13.5 g/dL (13.5-17.5); Lymphocytes # (auto) 0.8 10 ^3/uL (0.4-5.4); Lymphocytes % (auto) 12.7 % (10.0-50.0); Mean Corpuscular Hemoglobin 32.6 pg (28.0-32.0); Mean Corpuscular Hgb Conc. 33.7 g/dL (32.0-36.0); Mean Corpuscular Volume 96.8 fL (80.0-100.0); Monocytes # (auto) 0.9 10 ^3/uL (0-1.3); Monocytes % (auto) 15.2 % (0.0-12.0); Neutrophils # (auto) 4.3 10 ^3/uL (1.6-8.6); Neutrophils % (auto) 69.8 % (37.0-80.0); Nucleated Red Blood Cells % 0.3 %; Platelet Count (auto) 170 10^3/uL (140-450); Red Blood Cells 4.14 10^6/uL (4.5-5.90); Red Cell Distribution Width 16.8 % (11.8-14.3); White Blood Cell 6.1 10^3/uL (4.4-10.8)
[2024-06-20 08:15] LABS: Anion Gap 12 (5-15); BUN/Creatinine Ratio 19.2 (10.0-20.0); Calcium 9.6 mg/dL (8.7-10.4); Carbon Dioxide 21 mmol/L (20-31); Cholesterol 86 mg/dL (< 200); LDL Cholesterol 54 mg/dL (< 100); Potassium 4.1 mmol/L (3.5-5.1); Total Protein 6.6 g/dL (5.7-8.2); Triglycerides 82 mg/dL (< 150)
[2024-06-20 08:17] LABS: Alanine Aminotransferase 67 U/L (7-40); Alkaline Phosphatase 208 U/L (46-116); Aspartate Aminotransferase 59 U/L (13-40); Bilirubin, Total 5.5 mg/dL (0.2-1.0); Blood Urea Nitrogen 24 mg/dL (9-23); Chloride 94 mmol/L (98-107); Glucose 66 mg/dL (74-106); HDL Cholesterol 18 mg/dL (40-59); Sodium 127 mmol/L (136-145)
[2024-06-20 08:33] LABS: CRP High Sensitivity 2.98 mg/dL (<1.0)
[2024-06-20 09:13] LABS: Erythrocyte Sedimentation Rate 2 mm/hr (0-20)
--- NOTE | 2024-06-20 09:32 | DVH ---
CT CHEST, ABDOMEN AND PELVIS WITHOUT CONTRAST CLINICAL HISTORY: CP, SOB, PERICARDIAL EFFUSION, SUSPECTED ASCITE, LVEF <10 TECHNIQUE: Multiple contiguous axial images of the chest, abdomen and pelvis without intravenous cont rast. The images were reformatted degenerate coronal and sagittal reconstructions. All CT scans at this medical facility are performed using dose modulation techniques as appropriate t o a performed exam including the following:Automated exposure control was utilized; adjustment of the MA and/or KV according to patient size; and use of iterative reconstruction technique. Radiation Dose Information: CT Dose: CTDI volume is 14 mGy. Dose-length product is 941 mGy*cm Comparison: CT chest 04/26/2024 FINDINGS: Evaluation of the chest, abdomen and pelvis is limited without intravenous contrast. There is no focal lung consolidation. There is mild scarring versus atelectasis in the lung bases. T here is no pleural effusion or pneumothorax. There is no suspicious appearing pulmonary nodule or ma ss. There is no evidence of a mediastinal mass or lymphadenopathy. There is no hilar or axillary lymphad enopathy. There is moderate cardiomegaly. There is no significant pericardial effusion. There is a pacer device in the left chest wall. The liver demonstrates mildly decreased attenuation likely related to fatty infiltration. The liver a lso demonstrates mildly nodular surface contour which can be seen with hepatic cirrhosis . There is no gross evidence of a hepatic lesion. The gallbladder, pancreas, kidneys, adrenal glands, and spleen appear within normal limits. There is no gross evidence of abdominal lymphadenopathy. There are edematous changes in the mesentery . There is small amount of ascites. The small and large bowel loops demonstrate normal caliber. The abdominal aorta and IVC appear within normal limits. The bladder appears unremarkable. Pelvic organ appears within normal limits. There is no gross evid ence of a pelvic mass or lymphadenopathy. There is no acute osseous abnormality. IMPRESSION: 1. There is no acute process in the chest, abdomen and pelvis. 2. Moderate cardiomegaly. 3. Mild fatty infiltration of the liver. The liver also demonstrates mildly nodular surface contour w hich can be seen with hepatic cirrhosis. Clinical correlation is recommended. 4. Small ascites and edematous changes in the mesentery. 5. Scarring versus atelectasis in the left lung base. HS:Y
[2024-06-20] MEDS ORDERED: PATIENTS OWN MEDICATION (Simvastatin 10 MG) PO SCH (10:00)
[2024-06-20] MEDS: BUMETANIDE 1mg/4ml VIAL (0.25mg/ml) IV ONE (10:36)
[2024-06-20] MEDS: ASPirin-EC 81 mg tab PO SCH (10:37)
[2024-06-20] MEDS: SPIRONOLACTONE 25 MG TAB PO SCH (10:37)
[2024-06-20] MEDS: ENOXAPARIN SOD 40 MG/0.4 ML SYRINGE SC SCH (10:37)
[2024-06-20] MEDS: DIGOXIN 0.125 MG TAB PO SCH (10:37)
[2024-06-20] MEDS: AMIODARONE HCL 200 MG TAB PO SCH (10:37)
[2024-06-20] MEDS: COLCHICINE 0.6 MG CAP PO SCH (10:38)
--- NOTE | 2024-06-20 11:11 | DVHINCON2 ---
CONNER ARRINGTON [facility] 06/20/24 1111: Date Seen: Jun 20, 2024 Referring Physician MD Shraddha resident Reason for Consultation CP, SOB, EF 10% History of Present Illness This is a 64-year-old male patient who presents to the emergency room with chief complaint of abdominal distention and chest pain for five days. The patient reports that his main complaint is abdominal distention and that he has been unable to get rid of his edema. He also mentions chest pain. He describes the chest pain as unprovoked, sharp in nature, left-sided, and nonradiating. He states he has been having chest pain for many years. Initial twelve lead electrocardiogram reveals normal sinus rhythm with first-degree AV block and PVCs. Initial troponin level of 28ng/L with flat trend in serial troponins. Initial BNP level of 4388.74pg/mL. Significant past medical history includes nonischemic/dilated cardiomyopathy, presence of BI-V ICD (Biotronik) now with LV fracture, history of V-tach, hypertension, dyslipidemia, former polysubstance abuse, and medical noncompliance. The patient has been seen at this facility multiple times. Patient also reports following up with [facility] regarding LV fracture, which he states that they will not repair it due to him being a high-risk. Also, the patient is noted to have a history of atrial fibrillation and coronary stent placement per admitting providers. Patient denies any previous history of atrial fibrillation or coronary stents. Previous cardiac catheterization reports from this facility reveal nonischemic cardiomyopathy. Patient reports he sees field reporter Dr. Ng in the outpatient setting. Past Medical History Past medical history reviewed. No other significant than mentioned above. Past Surgical History BI-V ICD (Biotronik) in 2018 Family History: FH: arthritis FH: cancer aunt, Onset:50's - 60 FH: diabetes mellitus G8 MOTHER, , Onset:Unknown FH: stroke G8 MOTHER, , Onset:Unknown FHx: heart disease Family history: Cardiovascular disease G8 MOTHER, , Onset:Unknown Family history: Hypertension G8 MOTHER, , Onset:Unknown Family History Family history reviewed. Social History Patient reports a remote history of polysubstance abuse, states he quit over 30 years ago. Patient denies any current tobacco use, alcohol use, or drug use Allergies: Coded Allergies: Shellfish Allergy (Unverified Allergy, Severe, 09/11/23) CRAB Uncoded Allergies: CRAB (Allergy, Severe, 08/06/17) Home Meds Active Scripts Potassium Chloride (Potassium Chloride ER) 10 Meq Tab, 20 MEQ PO DAILY for 30 Days, #60 TAB Prov:MEME JAIME MD 04/30/24 Bumetanide (Bumetanide) 2 Mg Tab, 1 TAB PO BID for 30 Days, #60 TAB 1 Refill Prov:MEME JAIME MD 04/30/24 Amiodarone HCl (Amiodarone HCl) 200 Mg Tab, 200 MG PO Q12HR for 30 Days, #60 TAB Prov:JAMEEESTEVAN MARTEL RESIDENT 02/07/24 Acetaminophen (Acetaminophen) 325 Mg Tab, 325 MG PO Q4HP PRN for 10 Days, #50 TAB Prov:MARGOTMERLENEESTEVAN RESIDENT 02/07/24 Reported Medications Pantoprazole Sodium Sesquihydr (Pantoprazole Sodium) 40 Mg Tab, 40 MG PO DAILY, TAB 05/12/24 Simvastatin (Simvastatin) 10 Mg Tab, 10 MG PO DAILY, MG 05/12/24 Midodrine HCl (Midodrine Hydrochloride) 5 Mg Tab, 2 TAB PO TID, TAB 05/10/24 Cholecalciferol (VITAMIN D3) 2,000 Unit Tab, 1 TAB PO DAILY 01/09/24 Digoxin (Digoxin) 125 Mcg Tab, 1 TAB PO DAILY 01/09/24 Vericiguat (Verquvo) 10 Mg Tab, 1 TAB PO DAILY 01/09/24 Ivabradine Hydrochloride (Corlanor) 5 Mg Tab, 1 TAB PO BID 08/16/23 Spironolactone (Spironolactone) 25 Mg Tab, 1 TAB PO BID 05/15/23 Sacubitril-Valsartan (Entresto 24-26 mg) 1 Tab Tab, 1 TAB PO BID, TAB 05/15/23 Nitroglycerin (NTROSTAT SUBLINGUAL) 0.4 Mg Sl, 0.4 MG SL PRN, TAB *MAY REPEAT EVERY 5 MINUTES X 3 TOTAL IF NO RELIEF, INITIATE ANALGESIC THERAPY. NOTIFY PHYSICIAN *Do not crush. 05/15/23 Dapagliflozin Propanediol (Farxiga) 10 Mg Tab, 10 MG PO DAILY, TAB 10/24/23 Carvedilol (Carvedilol) 3.125 Mg Tab, 3.125 MG PO BID, MG 05/15/23 Aspirin (Aspir-Low) 81 Mg Tab, 81 MG PO DAILY, MG 05/15/23 Discontinued Reported Medications Mexiletine HCl (Mexiletine Hydrochloride) 150 Mg Cap, 150 MG PO TID, CAP 05/12/24 Home Meds Home medications reviewed. Current Medications Current Medications Medications (Trade) Dose Ordered Sig/Brian Route PRN Reason Start Time Stop Time Status Last Admin Sodium Chloride (Saline Lock Ns) 10 ml Q8HR IV 06/19/24 22:00 06/20/24 06:55 Ondansetron HCl (Zofran) 4 mg Q4HP PRN IV NAUSEA / VOMITING 06/19/24 20:30 06/20/24 01:21 Docusate Sodium (Colace Capsule) 100 mg BIDPRN PRN PO FOR CONSTIPATION 06/19/24 20:30 06/20/24 09:27 DC Enoxaparin Sodium (Lovenox) 40 mg DAILY SC 06/20/24 10:00 06/20/24 10:37 Acetaminophen (Tylenol Tablet) 650 mg Q6HP PRN PO PAIN SCALE 1-3 OR TEMP>100.4 06/19/24 20:30 Morphine Sulfate 2 mg Q4HPRN PRN IV SEVERE PAIN (7-10 PAIN SCALE) 06/19/24 20:30 06/20/24 09:27 DC 06/20/24 03:19 Nitroglycerin (Ntrostat Sublingual) 0.4 mg Q5MINP PRN SL FOR CHEST PAIN 06/19/24 20:30 Morphine Sulfate 2 mg Q30M PRN IV FOR CHEST PAIN 06/19/24 20:30 Amiodarone HCl (Cordarone Tablet) 200 mg Q12HR PO 06/20/24 10:00 06/20/24 10:37 Aspirin (Ecotrin Enteric Coated Tablet) 81 mg DAILY PO 06/20/24 10:00 06/20/24 10:37 Digoxin (Lanoxin Tablet) 0.125 mg DAILY PO 06/20/24 10:00 06/20/24 10:37 Patient Own Medication 10 mg DAILY PO 06/20/24 10:00 06/20/24 02:27 DC Atorvastatin Calcium (Lipitor) 40 mg HS PO 06/20/24 22:00 Diagnostic Test (Pha) (Accu-Chek Comfort Curve T) 1 strip ACHS 06/20/24 07:00 06/20/24 10:50 Insulin Human Regular (InsuLIN R) ACHS SC 06/20/24 07:00 Dextrose 50 ml UD PRN IV Blood Sugar LESS THAN 60 06/19/24 22:45 Mexiletine HCl (Mexitil) 150 mg TID PO 06/20/24 06:00 Colchicine (Colcrys) 0.6 mg Q12HR PO 06/20/24 10:00 06/20/24 10:38 Ibuprofen (Motrin Tablet) 600 mg TID PO 06/20/24 06:00 06/20/24 06:47 Pantoprazole Sodium (Protonix Tablet) 40 mg DAILY@0600 PO 06/20/24 06:00 06/20/24 06:47 Bumetanide (Bumex Injection) 1 mg BIDD IV 06/20/24 18:00 Spironolactone (Aldactone) 25 mg DAILY PO 06/20/24 10:00 06/20/24 10:37 Review of Systems Constitutional: No symptom reported Ears, Nose, & Throat: No symptom reported Eyes: No symptom reported Neurological: No symptoms reported Pulmonary/Respiratory: No symptoms reported Cardiovascular: Chest pain Gastrointestinal: Abdominal distention Genitourinary: No symptom reported Musculoskeletal: No symptom reported Skin: No symptom reported Psychiatric: No symptom reported Endocrine: No symptom reported Hematologic/Lymphatic: No symptom reported Vital Signs Vital Signs Date Time Temp Pulse Resp B/P (MAP) Pulse Ox O2 Delivery O2 Flow Rate FiO2 06/20/24 10:37 74 06/20/24 10:36 113/68 06/20/24 09:00 98.2 20 99 98.2 06/19/24 23:45 Nasal Cannula* 2 28 Physical Exam General Appearance: Cooperative. Well-developed. Well-nourished. No acute distress. Pulmonary/Respiratory: Clear, bilateral breaths sounds. Cardiovascular/Chest: Regular rate and rhythm. Peripheral Pulses: 2+ Radial (R). 2+ Radial (L). 2+ Pedal (R). 2+ Pedal (L) Abdominal Exam: Abdomen round, large, and distended. Ankle Exam: Negative ankle edema Lower extremities: Negative lower extremity edema Neuro/Mental Status: A/OX4, coherent. Thoughts/Psych: Normal thought pattern. Appropriate mood and affect. Good judgment and insight. Appearance: No acute distress. Skin Exam: Normal inspection. Normal color. Warm and dry. Labs/Diagnostic Data Labs Test 06/20/24 10:49 06/20/24 06:36 06/19/24 22:53 06/19/24 20:02 Range/Units POC Glucose 92 70-106 mg/dl White Blood Count 6.1 4.4-10.8 10^3/uL Red Blood Count 4.14 L 4.5-5.90 10^6/uL Hemoglobin 13.5 13.5-17.5 g/dL Hematocrit 40.1 L 41.0-53.0 % Mean Corpuscular Volume 96.8 80.0-100.0 fL Mean Corpuscular Hemoglobin 32.6 H 28.0-32.0 pg Mean Corpuscular Hemoglobin Concent 33.7 32.0-36.0 g/dL Red Cell Distribution Width 16.8 H 11.8-14.3 % Platelet Count 170 140-450 10^3/uL Mean Platelet Volume 8.6 6.9-10.8 fL Neutrophils (%) (Auto) 69.8 37.0-80.0 % Lymphocytes (%) (Auto) 12.7 10.0-50.0 % Monocytes (%) (Auto) 15.2 H 0.0-12.0 % Eosinophils (%) (Auto) 1.4 0.0-7.0 % Basophils (%) (Auto) 0.9 0.0-2.0 % Neutrophils # (Auto) 4.3 1.6-8.6 10 ^3/uL Lymphocytes # (Auto) 0.8 0.4-5.4 10 ^3/uL Monocytes # (Auto) 0.9 0-1.3 10 ^3/uL Eosinophils # (Auto) 0.1 0-0.8 10 ^3/uL Basophils # (Auto) 0.1 0-0.2 10 ^3/uL Nucleated Red Blood Cells 0.3 % Erythrocyte Sedimentation Rate 2 0-20 mm/hr Sodium Level 127 L 136-145 mmol/L Potassium Level 4.1 3.5-5.1 mmol/L Chloride Level 94 L 98-107 mmol/L Carbon Dioxide Level 21 20-31 mmol/L Anion Gap 12 5-15 Blood Urea Nitrogen 24 H 9-23 mg/dL Creatinine 1.25 0.700-1.30 mg/dL Glomerular Filtration Rate Calc 65 >90 mL/min BUN/Creatinine Ratio 19.2 10.0-20.0 Serum Glucose 66 L 74-106 mg/dL Calcium Level 9.6 8.7-10.4 mg/dL Total Bilirubin 5.5 H 0.2-1.0 mg/dL Aspartate Amino Transferase (AST) 59 H 13-40 U/L Alanine Aminotransferase (ALT) 67 H 7-40 U/L Alkaline Phosphatase 208 H 46-116 U/L C-Reactive Protein High Sensitivity 2.98 H <1.0 mg/dL Total Protein 6.6 5.7-8.2 g/dL Albumin 4.0 3.2-4.8 g/dL Triglycerides Level 82 < 150 mg/dL Cholesterol Level 86 < 200 mg/dL LDL Cholesterol 54 < 100 mg/dL HDL Cholesterol 18 L 40-59 mg/dL Plasma/Serum Blood Alcohol < 3.0 <10 mg/dL Prothrombin Time 19.6 H 9.3-11.8 sec Prothrombin Time INR 1.94 H 0.9-1.15 D-Dimer, Quantitative 2.86 H 0.0-0.49 mg/L FEU Troponin I High Sensitivity 31 </=54 ng/L Test 06/19/24 18:35 06/19/24 16:12 Range/Units Urine Color Yellow Yellow Urine Clarity Clear Clear Urine pH 5.5 5.0-9.0 Urine Specific [place] 1.016 1.001-1.035 Urine Protein 1+ H Negative Urine Ketones Negative Negative Urine Blood Negative Negative /uL Urine Nitrite Negative Negative Urine Bilirubin Negative Negative Urine Urobilinogen 3 H Negative mg/dL Urine Leukocyte Esterase Negative Negative /uL Urine RBC 1 0 - 3 /hpf Urine WBC 1 0 - 3 /hpf Urine Squamous Epithelial Cells Few <5 /hpf Urine Bacteria None seen None Seen /hpf Urine Hyaline Casts Many 0 - 2 /lpf Urine Mucus Few None Seen Urine Glucose 1+ H Normal mg/dL Urine Opiates Screen Neg NEGATIVE Urine Fentanyl Screen Neg NEGATIVE Urine Barbiturates Screen Neg NEGATIVE Urine Phencyclidine Screen Neg NEGATIVE Urine Amphetamines Screen Neg NEGATIVE Urine Benzodiazepines Screen Neg NEGATIVE Urine Cocaine Screen Neg NEGATIVE Urine Cannabinoids Screen Pos NEGATIVE Hemoglobin A1c 6.2 H <5.7 % A1C Phosphorus Level 3.2 2.4-5.1 mg/dL Magnesium Level 2.3 1.6-2.6 mg/dL B-Type Natriuretic Peptide 4388.74 0-100 pg/mL Thyroid Stimulating Hormone (TSH) 1.70 0.55-4.78 uIU/mL Assessment Acute on chronic decompensated HFrEF, NYHA class IV Nonischemic/end-stage dilated cardiomyopathy Presence of Bi-V ICD with left ventricular lead fracture (Biotronik) Severe mitral regurgitation Pulmonary hypertension History of V-tach (on Mexiletine) Hyperlipidemia Former polysubstance abuse Medical noncompliance Plan/Recommendation We will continue with the following plan/recommendations (Dr. Ng): * Echocardiogram reveals EF 5% * Initiate GDMT for CHF as tolerated * Initiate Beta-blanco after diuresis * Strict intake and output, daily weights, maintain fluid restriction * Diuresis with bumex and spironolactone * Initiate antiarrhythmic, Mexiletine Patient has end-stage cardiomyopathy and has refused hospice care in the past. Patient also been turned down for LV lead extraction by [facility]. Consider goals of care with the patient and family. Thank you for allowing us to care for this patient. Please call with any questions or concerns. Critical care time spent: 42 minutes This medical document was created using an electronic medical record system with voice recognition software and computerized dictation system. Although this document has been carefully reviewed, there might still be some phonetic and typographical errors. Occasional wrong-word or ``sound-alike substitutions may have occurred due to the inherent limitations of voice recognition software. These areas are purely typographical due to imperfections of the software programs and do not reflect any compromise in the patient's medical care. Please read the chart carefully and recognize, using context, where these substitutions have occurred. Plan discussed with: Patient NYHA Physical activity limitations: Class4(Severe)discomfort (w any activit,symptoms at rest) Date of Service: Jun 20, 2024 Billing Provider: CON[facility] Common Codes: 71258-[id number] INP/OBS CARE (High) Cardiology Consultation Codes: [id number] CONSULT <45MIN JASKARAN NG MD 06/21/24 1019: Family History: FH: arthritis FH: cancer aunt, Onset:50's - 60 FH: diabetes mellitus G8 MOTHER, , Onset:Unknown FH: stroke G8 MOTHER, , Onset:Unknown FHx: heart disease Family history: Cardiovascular disease G8 MOTHER, , Onset:Unknown Family history: Hypertension G8 MOTHER, , Onset:Unknown Allergies: Coded Allergies: Shellfish Allergy (Unverified Allergy, Severe, 09/11/23) CRAB Uncoded Allergies: CRAB (Allergy, Severe, 08/06/17) Home Meds Active Scripts Potassium Chloride (Potassium Chloride ER) 10 Meq Tab, 20 MEQ PO DAILY for 30 Days, #60 TAB Prov:MEME JAIME MD 04/30/24 Bumetanide (Bumetanide) 2 Mg Tab, 1 TAB PO BID for 30 Days, #60 TAB 1 Refill Prov:MEME JAIME MD 04/30/24 Amiodarone HCl (Amiodarone HCl) 200 Mg Tab, 200 MG PO Q12HR for 30 Days, #60 TAB Prov:ESTEVAN BRAN RESIDENT 02/07/24 Acetaminophen (Acetaminophen) 325 Mg Tab, 325 MG PO Q4HP PRN for 10 Days, #50 TAB Prov:ESTEVAN BRAN RESIDENT 02/07/24 Reported Medications Pantoprazole Sodium Sesquihydr (Pantoprazole Sodium) 40 Mg Tab, 40 MG PO DAILY, TAB 05/12/24 Simvastatin (Simvastatin) 10 Mg Tab, 10 MG PO DAILY, MG 05/12/24 Midodrine HCl (Midodrine Hydrochloride) 5 Mg Tab, 2 TAB PO TID, TAB 05/10/24 Cholecalciferol (VITAMIN D3) 2,000 Unit Tab, 1 TAB PO DAILY 01/09/24 Digoxin (Digoxin) 125 Mcg Tab, 1 TAB PO DAILY 01/09/24 Vericiguat (Verquvo) 10 Mg Tab, 1 TAB PO DAILY 01/09/24 Ivabradine Hydrochloride (Corlanor) 5 Mg Tab, 1 TAB PO BID 08/16/23 Spironolactone (Spironolactone) 25 Mg Tab, 1 TAB PO BID 05/15/23 Sacubitril-Valsartan (Entresto 24-26 mg) 1 Tab Tab, 1 TAB PO BID, TAB 05/15/23 Nitroglycerin (NTROSTAT SUBLINGUAL) 0.4 Mg Sl, 0.4 MG SL PRN, TAB *MAY REPEAT EVERY 5 MINUTES X 3 TOTAL IF NO RELIEF, INITIATE ANALGESIC THERAPY. NOTIFY PHYSICIAN *Do not crush. 05/15/23 Dapagliflozin Propanediol (Farxiga) 10 Mg Tab, 10 MG PO DAILY, TAB 05/15/23 Carvedilol (Carvedilol) 3.125 Mg Tab, 3.125 MG PO BID, MG 05/15/23 Aspirin (Aspir-Low) 81 Mg Tab, 81 MG PO DAILY, MG 05/15/23 Discontinued Reported Medications Mexiletine HCl (Mexiletine Hydrochloride) 150 Mg Cap, 150 MG PO TID, CAP 05/12/24 Plan/Recommendation pt incapable of living outside of hospital essentially offered hospice at [facility] this month, he declined he said he would move to [place] and seek advice at [facility] but has been readmitted numerous times here and all hospitals recommend hospice Plan discussed with: Patient CONNER ARRINGTON JEFF Jun 20, 2024 11:11 JASKARAN NG MD Jun 21, 2024 10:19
--- NOTE | 2024-06-20 12:46 | DVHSR ---
APPROVED REPORT EXAM: Two-dimensional and M-mode echocardiogram with Doppler and color Doppler. Blood Pressure: 106/77 mmHg INDICATION CP SUSPECTED PERICARDIAL EFFUSION RISK FACTORS Height: 6', Weight: 213 DIMENSIONS LVDd7.5 (3.8-5.7cm)LA (2D)5.1 (1.9-4.0cm)Aortic Root3.5 (2.0-3.7cm) LVDs7.2 (2.5-4.0cm)LA (MM) (1.9-4.0cm)Aortic Cusp Exc1.7 (1.5-2.0cm) EF (%) 8.0 (55-70%)Rt. Atrium6.2 (1.9-4.0cm)Asc. Aorta cm IVSd1.1 (0.7-1.1cm)RV (D) (1.8-2.4cm) PWd1.0 (0.7-1.1cm) Mitral Valve MitralMitral Stenosis E wave0.80m/sMV Mean GR.mmHg A wave0.30m/sMV Peak GR.mmHg E/A ratio2.72D MVAcm2 Aortic Valve Aortic ValveAortic Stenosis V10.50m/[place] Mean GR.3mmHg V21.00m/[place] Peak GR.4mmHg LVOT Diameter2.0 (1.8-2.4cm)Doppler AVA1.57cm2 Pulmonic Valve V20.30m/s Tricuspid Valve TR Velocity3.00m/s [id number] Conclusion lvef 5% by visual estimate severe RV dysfunction and RV marked enlargement RV pacing lead present biatrial enlargement significant mitral regurg and tricuspid regurg no severe pericardial effusion notd
--- NOTE | 2024-06-20 14:12 | DVHPNRES ---
Progress Note Date Seen: Jun 20, 2024 Resident Creating Document: DA BRODERICK RESIDENT Medical Necessity Reason Pt with a Central, PICC or Fol: No Subjective Review of Systems PAWANChau a 64-year-old male with a PMH of HFreF EF <10% s/p biventricular Biotronik ICD since 2018 with LV lead fracture, nonischemic dilated cardiomyopathy severe pulmonary hypertension, history of V-tach, CAD status post 4 JAMEL, diabetes mellitus type 2, former polysubstance dependence, severe MR, paroxysmal AFib, hypertension and hyperlipidemia presented to the ED with the chief complaints of chest discomfort and abdominal discomfort For 2-3 days prior to admission. Patient reported having chest pain for last 2-3 days, sharp in nature, sudden onset, 7/10, intermittent, no radiation, decreased with pain killer like morphine. Patient also reported having worsening shortness of breath for last couple of days, worsened with exertion, patient also reported orthopnea and PND. Patient reported that abdomen is bloating but no tender or pain associated with vomiting but no diarrhea. Patient reported whenever he has fluid overload his abdomen spells like this. Patient denied any fever, constipation, diarrhea, dysuria, dizziness, change in vision or slurring speech. Patient reported that he ran out of Bumex at home. PMH: HFreF EF <10% s/p biventricular Biotronik ICD since 2018 with LV lead fracture, nonischemic dilated cardiomyopathy severe pulmonary hypertension, history of V-tach, CAD status post 4 JAMEL, diabetes mellitus type 2, former polysubstance dependence, severe MR, paroxysmal AFib, hypertension and hyperlipidemia PSH:ICD placement, PTCA Family history: history of cancer, diabetes, stroke, heart disease in families Social history: Patient lives in [facility]. Remote history of polysubstance abuse but denies tobacco, alcohol and other drug abuse Allergies: Shellfish allergy Patient seen and examined at the bedside. Patient reported improvement in his symptoms since admission, sleep was good. Patient has been started on Bumex IV and spironolactone. Cardiology consulted evaluated the patient and advised GDM T for CHF as tolerated and to initiate beta-blockers after diuresis along with strict I&Os, daily weights and fluid restriction. Continuously monitored. Echocardiogram showed LVEF 5%, severe RV dysfunction, RV enlargement, biatrial enlargement, significant mitral and tricuspid regurgitation. Objective vital signs Vital Sign Date Time Temp Pulse Resp B/P (MAP) Pulse Ox O2 Delivery O2 Flow Rate FiO2 06/20/24 10:37 74 06/20/24 10:36 113/68 06/20/24 09:00 98.2 20 99 98.2 06/20/24 08:00 Room Air* 0 21 Total Intake and Output 06/19/24 06/19/24 06/20/24 15:00 23:00 07:00 Intake Total 0 ml Balance 0 ml medications Current Medications Medications Dose Ordered Sig/Brian Route Start Time Stop Time Status Last Admin Dose Admin Sodium Chloride 10 ml Q8HR IV 06/19/24 22:00 06/20/24 06:55 10 ML Ondansetron HCl 4 mg Q4HP PRN IV 06/19/24 20:30 06/20/24 12:09 4 MG Enoxaparin Sodium 40 mg DAILY SC 06/20/24 10:00 06/20/24 10:37 40 MG Acetaminophen 650 mg Q6HP PRN PO 06/19/24 20:30 Nitroglycerin 0.4 mg Q5MINP PRN SL 06/19/24 20:30 Morphine Sulfate 2 mg Q30M PRN IV 06/19/24 20:30 Aspirin 81 mg DAILY PO 06/20/24 10:00 06/20/24 10:37 81 MG Digoxin 0.125 mg DAILY PO 06/20/24 10:00 06/20/24 10:37 0.125 MG Atorvastatin Calcium 40 mg HS PO 06/20/24 22:00 Diagnostic Test (Pha) 1 strip ACHS 06/20/24 07:00 06/20/24 10:50 1 STRIP Insulin Human Regular ACHS SC 06/20/24 07:00 Dextrose 50 ml UD PRN IV 06/19/24 22:45 Colchicine 0.6 mg Q12HR PO 06/20/24 10:00 06/20/24 10:38 0.6 MG Ibuprofen 600 mg TID PO 06/20/24 06:00 06/20/24 06:47 600 MG Pantoprazole Sodium 40 mg DAILY@0600 PO 06/20/24 06:00 06/20/24 06:47 40 MG Bumetanide 1 mg BIDD IV 06/20/24 18:00 Spironolactone 25 mg DAILY PO 06/20/24 10:00 06/20/24 10:37 25 MG Mexiletine HCl 150 mg Q8HR PO 06/20/24 14:00 Empaglifozin 10 mg DAILY PO 06/21/24 10:00 Sacubitril/ Valsartan 0.5 tab BID PO 06/20/24 22:00 Examination Pt is lying on bed General Appearance: Alert, Oriented X3, Cooperative, Not in acute distress HEENT: Atraumatic, Mucous membranes moist/pink Respiratory: Clear to auscultation, Normal air movement, No added sounds Cardiovascular: Regular rate, Normal S1, Normal S2, No murmurs Abdominal: Active bowel sounds, Soft, no distention, no tenderness Extremities: No edema, Normal pulses, No tenderness/swelling Skin: No Significant rash, except past surgical scars Neuro: Normal speech, sensorimotor deficits none Psych/Mental Status: Mental status NL, Mood NL Nurse was there as sharperone during examination laboratory and microbiology Laboratory Tests 06/20/24 06:36 Test 06/20/24 06:36 Range/Units Serum Glucose 66 L 74-106 mg/dL Labs and/or images reviewed: Labs reviewed by me, Image(s) reviewed by me Problem List/Assessment/Plan Problem List/Assessment/Plan # ruled out ACS # Acute on chronic decompensated HFrEF, NYHA class IV # Nonischemic/end-stage dilated cardiomyopathy # Presence of Bi-V ICD with left ventricular lead fracture (Wazzapronik) # Severe mitral regurgitation # Pulmonary hypertension # History of V-tach (on Mexiletine) # rule out pericarditis - Monitoring on telemetry unit, elevated BNP - currently on Bumex IV b.i.d. and spironolactone, aspirin, nitroglycerin and morphine - continuing home medications - GDMT for CHF as tolerated and Initiate Beta-blanco after diuresis - Echocardiogram reveals EF 5% - Strict intake and output, daily weights, maintain fluid restriction - On antiarrhythmic, Mexiletine - Previously patient refused hospice care and is not a good candidate for heart transplantation as per digital cartographer. # dilutional hyponatremia -sodium 125 -patient history of CHF, fluid overload -monitor CMP -fluid restriction # CAD status post 4 JAMEL -continue aspirin 81 mg q.d. -atorvastatin 40 mg q.h.s. -nitroglycerin p.r.n. -morphine p.r.n. as prescribed # ? liver cirrhosis # transaminitis - CT showed mild fatty infiltration of liver, mildly nodular surface - small ascites # Diabetes mellitus type 2 -sliding scale as prescribed # Paroxysmal atrial fibrillation- CHADS2 Vasc score 04 HASBLED 1 -monitor -continue amiodarone 200 mg p.o. q.12 hours # Hypertension -continue current management # Hyperlipidemia -atorvastatin 40 mg q.h.s. # former polysubstance dependence # Medical noncompliance Lovenox for now Protonix Cardiac diet Reconciled home meds Goals of care discussed with the patient for more than 27 minutes: Full code status Case management discussed with Dr Rodgers, patient and nurse. Patient has end- stage cardiomyopathy and has refused hospice care in the past. Plan discussed with: Patient My Orders My Orders Orders - DA BRODERICK Procedure Category Date Status Time Clear Liq Diet DIET 06/20/24 Transmitted Breakfast Spironolactone PHA 06/20/24 In Process (Aldactone) 10:00 Bumetanide Injection PHA 06/20/24 In Process (Bumex Injection) 18:00 Date of Service: Jun 20, 2024 Billing Provider: MEME RODGERS MD Common Visit Codes: [id number] INP/OBS CARE(HIGH) DA BRODERICK Jun 20, 2024 14:12 MEME RODGERS MD Jun 21, 2024 23:10
[2024-06-20] MEDS: MEXILETINE HYDROCHLORIDE 150 MG CAP PO SCH (15:11)
[2024-06-20] MEDS: BUMETANIDE 1mg/4ml VIAL (0.25mg/ml) IV SCH (17:56)
[2024-06-20] MEDS: ATORVASTATIN 20 MG TAB PO SCH (22:34)
[2024-06-20] MEDS: PANTOPRAZOLE 40 MG/10 ML VIAL INJ IV ONE (22:34)
[2024-06-20] MEDS: SACUBITRIL-VALSARTAN 24mg/26mg TAB PO SCH (22:34)
[2024-06-21] VITALS (7 sets, daily range): BP systolic 97–121; BP diastolic 57–76; PULSE 71–95; RESP 16–20; TEMP 97.6–98.1; O2SAT 98–100
[2024-06-21 05:50] LABS: Basophils # (auto) 0 10 ^3/uL (0-0.2); Basophils % (auto) 0.4 % (0.0-2.0); Eosinophils # (auto) 0 10 ^3/uL (0-0.8); Eosinophils % (auto) 0.3 % (0.0-7.0); Hematocrit 39.5 % (41.0-53.0); Hemoglobin 13.4 g/dL (13.5-17.5); Lymphocytes # (auto) 0.4 10 ^3/uL (0.4-5.4); Lymphocytes % (auto) 6.8 % (10.0-50.0); Mean Corpuscular Hemoglobin 32.9 pg (28.0-32.0); Mean Corpuscular Hgb Conc. 33.9 g/dL (32.0-36.0); Mean Corpuscular Volume 96.9 fL (80.0-100.0); Monocytes # (auto) 0.8 10 ^3/uL (0-1.3); Monocytes % (auto) 13.3 % (0.0-12.0); Neutrophils # (auto) 4.8 10 ^3/uL (1.6-8.6); Neutrophils % (auto) 79.2 % (37.0-80.0); Nucleated Red Blood Cells % 0.2 %; Platelet Count (auto) 217 10^3/uL (140-450); Red Blood Cells 4.07 10^6/uL (4.5-5.90); Red Cell Distribution Width 16.7 % (11.8-14.3); White Blood Cell 6.1 10^3/uL (4.4-10.8)
[2024-06-21 06:11] LABS: Anion Gap 17 (5-15); BUN/Creatinine Ratio 16.3 (10.0-20.0); Calcium 9.4 mg/dL (8.7-10.4); Glucose 87 mg/dL (74-106); Potassium 3.8 mmol/L (3.5-5.1)
[2024-06-21 06:12] LABS: Total Protein 6.6 g/dL (5.7-8.2)
[2024-06-21 06:14] LABS: Alanine Aminotransferase 67 U/L (7-40); Alkaline Phosphatase 201 U/L (46-116); Aspartate Aminotransferase 74 U/L (13-40); Bilirubin, Total 6.8 mg/dL (0.2-1.0); Blood Urea Nitrogen 25 mg/dL (9-23); Carbon Dioxide 16 mmol/L (20-31); Chloride 93 mmol/L (98-107); Sodium 126 mmol/L (136-145)
[2024-06-21] MEDS: EMPAGLIFLOZIN 10 MG TAB PO SCH (10:05)
--- NOTE | 2024-06-21 11:55 | DVHPNRES ---
Progress Note Date Seen: Jun 21, 2024 Resident Creating Document: DA BRODERICK RESIDENT Medical Necessity Reason Pt with a Central, PICC or Fol: No Subjective Review of Systems Chau VILLALTA a 64-year-old male with a PMH of HFreF EF <10% s/p biventricular Biotronik ICD since 2018 with LV lead fracture, nonischemic dilated cardiomyopathy severe pulmonary hypertension, history of V-tach, CAD status post 4 JAMEL, diabetes mellitus type 2, former polysubstance dependence, severe MR, paroxysmal AFib, hypertension and hyperlipidemia presented to the ED with the chief complaints of chest discomfort and abdominal discomfort For 2-3 days prior to admission. Patient seen and examined at the bedside. Patient reported improvement in his symptoms since admission, sleep was good. Patient has been started on Bumex IV and spironolactone. Cardiology consulted evaluated the patient and advised GDM T for CHF as tolerated and to initiate beta-blockers after diuresis along with strict I&Os, daily weights and fluid restriction. Echocardiogram showed LVEF 5%, severe RV dysfunction, RV enlargement, biatrial enlargement, significant mitral and tricuspid regurgitation. continue monitoring. Patient reports: No new complaints, Feels better Objective vital signs Vital Sign Date Time Temp Pulse Resp B/P (MAP) Pulse Ox O2 Delivery O2 Flow Rate FiO2 06/21/24 10:03 84 06/21/24 08:39 97.6 17 106/57 (73) 98 97.6 06/21/24 08:00 Room Air* 0 21 Total Intake and Output 06/20/24 06/20/24 06/21/24 15:00 23:00 07:00 Intake Total 1800 ml 850 ml Output Total 300 ml Balance 1800 ml 550 ml medications Current Medications Medications Dose Ordered Sig/Brian Route Start Time Stop Time Status Last Admin Dose Admin Sodium Chloride 10 ml Q8HR IV 06/19/24 22:00 06/21/24 05:46 10 ML Ondansetron HCl 4 mg Q4HP PRN IV 06/19/24 20:30 06/20/24 22:33 4 MG Enoxaparin Sodium 40 mg DAILY SC 06/20/24 10:00 06/21/24 10:05 40 MG Acetaminophen 650 mg Q6HP PRN PO 06/19/24 20:30 Nitroglycerin 0.4 mg Q5MINP PRN SL 06/19/24 20:30 Morphine Sulfate 2 mg Q30M PRN IV 06/19/24 20:30 Aspirin 81 mg DAILY PO 06/20/24 10:00 06/21/24 10:02 81 MG Digoxin 0.125 mg DAILY PO 06/20/24 10:00 06/21/24 10:03 0.125 MG Atorvastatin Calcium 40 mg HS PO 06/20/24 22:00 06/20/24 22:34 40 MG Diagnostic Test (Pha) 1 strip ACHS 06/20/24 07:00 06/21/24 11:47 1 STRIP Insulin Human Regular ACHS SC 06/20/24 07:00 Dextrose 50 ml UD PRN IV 06/19/24 22:45 Colchicine 0.6 mg Q12HR PO 06/20/24 10:00 06/21/24 10:04 0.6 MG Ibuprofen 600 mg TID PO 06/20/24 06:00 06/20/24 14:25 600 MG Pantoprazole Sodium 40 mg DAILY@0600 PO 06/20/24 06:00 06/21/24 05:46 40 MG Bumetanide 1 mg BIDD IV 06/20/24 18:00 06/21/24 05:46 1 MG Spironolactone 25 mg DAILY PO 06/20/24 10:00 06/21/24 10:04 25 MG Mexiletine HCl 150 mg Q8HR PO 06/20/24 14:00 06/21/24 05:46 150 MG Empaglifozin 10 mg DAILY PO 06/21/24 10:00 06/21/24 10:05 10 MG Sacubitril/ Valsartan 0.5 tab BID PO 06/20/24 22:00 06/21/24 10:04 0.5 TAB Examination Pt is lying on bed General Appearance: Alert, Oriented X3, Cooperative, Not in acute distress HEENT: Atraumatic, Mucous membranes moist/pink Respiratory: Clear to auscultation, Normal air movement, No added sounds Cardiovascular: Regular rate, Normal S1, Normal S2, No murmurs Abdominal: Active bowel sounds, Soft, no distention, no tenderness Extremities: No edema, Normal pulses, No tenderness/swelling Skin: No Significant rash, except past surgical scars Neuro: Normal speech, sensorimotor deficits none Psych/Mental Status: Mental status NL, Mood NL Nurse was there as sharperone during examination laboratory and microbiology Laboratory Tests 06/21/24 04:56 Test 06/21/24 04:56 Range/Units Serum Glucose 87 74-106 mg/dL Labs and/or images reviewed: Labs reviewed by me, Image(s) reviewed by me Problem List/Assessment/Plan Problem List/Assessment/Plan # ruled out ACS # Acute on chronic decompensated HFrEF, NYHA class IV # Nonischemic/end-stage dilated cardiomyopathy # Presence of Bi-V ICD with left ventricular lead fracture (Biotronik) # Severe mitral regurgitation # Pulmonary hypertension # History of V-tach (on Mexiletine) # rule out pericarditis - Monitoring on telemetry unit, elevated BNP - currently on Bumex IV b.i.d. and spironolactone, aspirin, nitroglycerin and morphine - continuing home medications - GDMT for CHF as tolerated and Initiate Beta-blanco after diuresis - Echocardiogram reveals EF 5% - Strict intake and output, daily weights, maintain fluid restriction - On antiarrhythmic, Mexiletine - Previously patient refused hospice care and is not a good candidate for heart transplantation as per label machine operator. # dilutional hyponatremia -sodium 125 -patient history of CHF, fluid overload -monitor CMP -fluid restriction # CAD status post 4 JAMEL -continue aspirin 81 mg q.d. -atorvastatin 40 mg q.h.s. -nitroglycerin p.r.n. -morphine p.r.n. as prescribed # ? liver cirrhosis # transaminitis - CT showed mild fatty infiltration of liver, mildly nodular surface - small ascites # RADHA likely VMN on ckd - monitor lab # Diabetes mellitus type 2 -sliding scale as prescribed # Paroxysmal atrial fibrillation- CHADS2 Vasc score 04 HASBLED 1 -monitor -continue amiodarone 200 mg p.o. q.12 hours # Hypertension -continue current management # Hyperlipidemia -atorvastatin 40 mg q.h.s. # former polysubstance dependence # Medical noncompliance Lovenox for now Protonix Cardiac diet Reconciled home meds Goals of care discussed with the patient for more than 27 minutes: Full code status Case management discussed with Dr Chan, patient and nurse. Patient has end-stage cardiomyopathy and has refused hospice care in the past. Possible DC tomorrow Plan discussed with: Patient Date of Service: Jun 21, 2024 Billing Provider: HANNAH CHAN MD Common Visit Codes: [id number] INP/OBS CARE(HIGH) DA BRODERICK RESIDENT Jun 21, 2024 11:55 HANNAH CHAN MD Jun 21, 2024 21:54
--- NOTE | 2024-06-22 11:23 | DVHDSRES ---
Discharge Summary Date of Admission Resident Creating Document: ESTEVAN BRAN RESIDENT Jun 19, 2024 at 20:39 Date of Discharge: Jun 22, 2024 Admitting Diagnosis Acute respiratory failure secondary to acute on chronic CHF Labs/Diagnostic Data: Laboratory Results Test 06/21/24 16:55 06/21/24 04:56 06/20/24 06:36 06/19/24 22:53 POC Glucose 70 mg/dl (70-106) White Blood Count 6.1 10^3/uL (4.4-10.8) Red Blood Count 4.07 10^6/uL (4.5-5.90) Hemoglobin 13.4 g/dL (13.5-17.5) Hematocrit 39.5 % (41.0-53.0) Mean Corpuscular Volume 96.9 fL (80.0-100.0) Mean Corpuscular Hemoglobin 32.9 pg (28.0-32.0) Mean Corpuscular Hemoglobin Concent 33.9 g/dL (32.0-36.0) Red Cell Distribution Width 16.7 % (11.8-14.3) Platelet Count 217 10^3/uL (140-450) Mean Platelet Volume 8.3 fL (6.9-10.8) Neutrophils (%) (Auto) 79.2 % (37.0-80.0) Lymphocytes (%) (Auto) 6.8 % (10.0-50.0) Monocytes (%) (Auto) 13.3 % (0.0-12.0) Eosinophils (%) (Auto) 0.3 % (0.0-7.0) Basophils (%) (Auto) 0.4 % (0.0-2.0) Neutrophils # (Auto) 4.8 10 ^3/uL (1.6-8.6) Lymphocytes # (Auto) 0.4 10 ^3/uL (0.4-5.4) Monocytes # (Auto) 0.8 10 ^3/uL (0-1.3) Eosinophils # (Auto) 0 10 ^3/uL (0-0.8) Basophils # (Auto) 0 10 ^3/uL (0-0.2) Nucleated Red Blood Cells 0.2 % Sodium Level 126 mmol/L (136-145) Potassium Level 3.8 mmol/L (3.5-5.1) Chloride Level 93 mmol/L (98-107) Carbon Dioxide Level 16 mmol/L (20-31) Anion Gap 17 (5-15) Blood Urea Nitrogen 25 mg/dL (9-23) Creatinine 1.53 mg/dL (0.700-1.30) Glomerular Filtration Rate Calc 51 mL/min (>90) BUN/Creatinine Ratio 16.3 (10.0-20.0) Serum Glucose 87 mg/dL (74-106) Calcium Level 9.4 mg/dL (8.7-10.4) Total Bilirubin 6.8 mg/dL (0.2-1.0) Aspartate Amino Transferase (AST) 74 U/L (13-40) Alanine Aminotransferase (ALT) 67 U/L (7-40) Alkaline Phosphatase 201 U/L (46-116) Total Protein 6.6 g/dL (5.7-8.2) Albumin 4.0 g/dL (3.2-4.8) Erythrocyte Sedimentation Rate 2 mm/hr (0-20) C-Reactive Protein High Sensitivity 2.98 mg/dL (<1.0) Triglycerides Level 82 mg/dL (< 150) Cholesterol Level 86 mg/dL (< 200) LDL Cholesterol 54 mg/dL (< 100) HDL Cholesterol 18 mg/dL (40-59) Plasma/Serum Blood Alcohol < 3.0 mg/dL (<10) Test 06/19/24 20:02 06/19/24 18:35 06/19/24 16:12 Prothrombin Time 19.6 sec (9.3-11.8) Prothrombin Time INR 1.94 (0.9-1.15) D-Dimer, Quantitative 2.86 mg/L FEU (0.0-0.49) Troponin I High Sensitivity 31 ng/L (</=54) Urine Color Yellow (Yellow) Urine Clarity Clear (Clear) Urine pH 5.5 (5.0-9.0) Urine Specific [place] 1.016 (1.001-1.035) Urine Protein 1+ (Negative) Urine Ketones Negative (Negative) Urine Blood Negative /uL (Negative) Urine Nitrite Negative (Negative) Urine Bilirubin Negative (Negative) Urine Urobilinogen 3 mg/dL (Negative) Urine Leukocyte Esterase Negative /uL (Negative) Urine RBC 1 /hpf (0 - 3) Urine WBC 1 /hpf (0 - 3) Urine Squamous Epithelial Cells Few /hpf (<5) Urine Bacteria None seen /hpf (None Seen) Urine Hyaline Casts Many /lpf (0 - 2) Urine Mucus Few (None Seen) Urine Glucose 1+ mg/dL (Normal) Urine Opiates Screen Neg (NEGATIVE) Urine Fentanyl Screen Neg (NEGATIVE) Urine Barbiturates Screen Neg (NEGATIVE) Urine Phencyclidine Screen Neg (NEGATIVE) Urine Amphetamines Screen Neg (NEGATIVE) Urine Benzodiazepines Screen Neg (NEGATIVE) Urine Cocaine Screen Neg (NEGATIVE) Urine Cannabinoids Screen Pos (NEGATIVE) Hemoglobin A1c 6.2 % A1C (<5.7) Phosphorus Level 3.2 mg/dL (2.4-5.1) Magnesium Level 2.3 mg/dL (1.6-2.6) B-Type Natriuretic Peptide 4388.74 pg/mL (0-100) Thyroid Stimulating Hormone (TSH) 1.70 uIU/mL (0.55-4.78) Other Laboratory Tests 06/21/24 04:56 Brief Hx & Hospital Course: Slava Ruvalcaba is a 64-year-old male patient who presented to the emergency department with the chief complaints of stabbing retrosternal and epigastric chest pain, which increases with movements and with palpation which started three days prior to his admission, associated with dyspnea and functional class III. Patient reports noncompliance p.o. diuretics (has not been taking Bumex). Patient also reports follow up in [facility], [facility] (Dr Ng) and also [place] for his ischemic versus toxic dilated end-stage cardiomyopathy, where he was told to be inoperable for exchange of fracture lead and heart transplant. Denies any other associated symptoms. Past medical history: Hypertension, dyslipidemia, diabetes, ischemic persist toxic dilated cardiomyopathy HFrEF (LVEF <10%) status post of bi-V AICD in 2018 (biotronik) with history of broken MATE FISHING VESSEL lead, severe pulmonary hypertension, severe MR, paroxysmal atrial fibrillation (chads Vasc 4/has bled2), history of V-tach, former polysubstance abuse and medical noncompliance. Coronary artery disease status post PCI with four stent placement. Past Surgical History: MATE FISHING VESSEL-D in 2018 and stent placement. Last coronary angiography on 09/2021 with nonobstructive coronary artery disease Family History: Diabetes, heart disease, hypertension in mother and uncle. Social History: Remote history of multiple substance use when young (he has been clean for more than 30 years) Allergic history: Crab, Shelfish Home medication: Digoxin, Verquo, losartan, spironolactone, sacubitril valsartan, bumetanide, Farxiga, carvedilol, aspirin PCP: Dr. Arriola Brief hospital course: Acute respiratory failure secondary to acute on chronic HFrEF (triggering factor: Noncompliance with medication, predisposing factor: Ischemic versus toxic dilated cardiomyopathy), responding to IV diuretics, fluid restriction, oxygen therapy and bronchodilator medication. Completed new echocardiogram which evidence LVEF 5%, severe RV dysfunction and RV marked enlargement, biatrial enlargement, significant MR and TR. Patient still we will requirement with IV diuretics, pending optimization of GDM T, left against medical advice. Risk of doing so were disclosed to patient, which include worsening dyspnea, cardiogenic shock and including . Patient takes full responsibility of his decision, and decides to leave hospital against medical advice. DIAGNOSIS Acute respiratory failure Acute on chronic decompensated HFrEF (LVEF 5%), NYHA class IV - status post MATE FISHING VESSEL- D with fractured MATE FISHING VESSEL lead Ischemic versus toxic end-stage dilated cardiomyopathy Severe mitral regurgitation Pulmonary hypertension History of V-tach Dilutional hyponatremia History of CAD status post 4 JAMEL Questionable liver cirrhosis Transaminitis RADHA likely VMN on ckd Diabetes mellitus type 2 Paroxysmal atrial fibrillation (CHADS2 Vasc score 4/ HASBLED 2) secondary hypercoagulability state Hypertension Hyperlipidemia Former polysubstance dependence Medical noncompliance Physical examination Could not complete since patient left AMA during the p.m. Operations or Procedures EXAM: Two-dimensional and M-mode echocardiogram with Doppler and color Doppler. Blood Pressure: 106/77 mmHg INDICATION CP SUSPECTED PERICARDIAL EFFUSION RISK FACTORS Height: 6', Weight: 213 DIMENSIONS LVDd 7.5 (3.8-5.7cm) LA (2D) 5.1 (1.9-4.0cm) Aortic Root 3.5 (2.0- 3.7cm) LVDs 7.2 (2.5-4.0cm) LA (MM) (1.9-4.0cm) Aortic Cusp Exc 1.7 (1.5- 2.0cm) EF (%) 8.0 (55-70%) Rt. Atrium 6.2 (1.9-4.0cm) Asc. Aorta cm IVSd 1.1 (0.7-1.1cm) RV (D) (1.8-2.4cm) PWd 1.0 (0.7-1.1cm) Mitral Valve Mitral Mitral Stenosis E wave 0.80m/s MV Mean GR. mmHg A wave 0.30m/s MV Peak GR. mmHg E/A ratio 2.7 2D MVA cm2 Aortic Valve Aortic Valve Aortic Stenosis V1 0.50m/s AO Mean GR. 3mmHg V2 1.00m/s AO Peak GR. 4mmHg LVOT Diameter 2.0 (1.8-2.4cm) Doppler SYEDA 1.57cm2 Pulmonic Valve V2 0.30m/s Tricuspid Valve TR Velocity 3.00m/s RVSP 42mmHg Conclusion lvef 5% by visual estimate severe RV dysfunction and RV marked enlargement RV pacing lead present biatrial enlargement significant mitral regurg and tricuspid regurg no severe pericardial effusion notd SIGNED BY: JASKARAN NG MD SIGNED DATE/TIME: 06/20/24 1246 CHEST RADIOGRAPH Indication: CP Technique: Frontal and lateral view of the chest was obtained Comparison: XY CHEST TWO VIEWS ROUTINE on DOS: 05/30/23, XY CHEST TWO VIEWS ROUTINE on DOS: 05/14/23, XY CHEST TWO VIEWS ROUTINE on DOS: 04/04/23 FINDINGS: Lines and Tubes: Pacemaker in place unchanged Lungs: Clear Pleura: No effusion. No pneumothorax. Cardiomediastinal contours: Cardiomegaly without findings of congestive failure consider possibility of pericardial effusion or cardiomyopathy. Bones: Unremarkable IMPRESSION: 1. Cardiomegaly without findings of congestive failure. Consider possibility of pericardial effusion or cardiomyopathy. ATED BY: DEVON DELGADO Jr., DO DICTATED DATE/TIME: 06/19/[address] CHEST, ABDOMEN AND PELVIS WITHOUT CONTRAST CLINICAL HISTORY: CP, SOB, PERICARDIAL EFFUSION, SUSPECTED ASCITE, LVEF <10 TECHNIQUE: Multiple contiguous axial images of the chest, abdomen and pelvis without intravenous contrast. The images were reformatted degenerate coronal and sagittal reconstructions. All CT scans at this medical facility are performed using dose modulation techniques as appropriate to a performed exam including the following:Automated exposure control was utilized; adjustment of the MA and/or KV according to patient size; and use of iterative reconstruction technique. Radiation Dose Information: CT Dose: CTDI volume is 14 mGy. Dose-length product is 941 mGy*cm Comparison: CT chest 04/26/2024 FINDINGS: Evaluation of the chest, abdomen and pelvis is limited without intravenous contrast. There is no focal lung consolidation. There is mild scarring versus atelectasis in the lung bases. There is no pleural effusion or pneumothorax. There is no suspicious appearing pulmonary nodule or mass. There is no evidence of a mediastinal mass or lymphadenopathy. There is no hilar or axillary lymphadenopathy. There is moderate cardiomegaly. There is no significant pericardial effusion. There is a pacer device in the left chest wall. The liver demonstrates mildly decreased attenuation likely related to fatty infiltration. The liver also demonstrates mildly nodular surface contour which can be seen with hepatic cirrhosis . There is no gross evidence of a hepatic lesion. The gallbladder, pancreas, kidneys, adrenal glands, and spleen appear within normal limits. There is no gross evidence of abdominal lymphadenopathy. There are edematous changes in the mesentery. There is small amount of ascites. The small and large bowel loops demonstrate normal caliber. The abdominal aorta and IVC appear within normal limits. The bladder appears unremarkable. Pelvic organ appears within normal limits. There is no gross evidence of a pelvic mass or lymphadenopathy. There is no acute osseous abnormality. IMPRESSION: 1. There is no acute process in the chest, abdomen and pelvis. 2. Moderate cardiomegaly. 3. Mild fatty infiltration of the liver. The liver also demonstrates mildly nodular surface contour which can be seen with hepatic cirrhosis. Clinical correlation is recommended. 4. Small ascites and edematous changes in the mesentery. 5. Scarring versus atelectasis in the left lung base. HS:Y ATED BY: DEVONTE ANDERSON MD DICTATED DATE/TIME: 06/20/2486 Condition at Discharge: Undetermined Final Diagnosis/Problems List Acute respiratory failure Acute on chronic decompensated HFrEF (LVEF 5%), NYHA class IV - status post MATE FISHING VESSEL-D with fractured MATE FISHING VESSEL lead Ischemic versus toxic end-stage dilated cardiomyopathy Severe mitral regurgitation Pulmonary hypertension History of V-tach Dilutional hyponatremia History of CAD status post 4 JAMEL Questionable liver cirrhosis Transaminitis RADHA likely VMN on ckd Diabetes mellitus type 2 Paroxysmal atrial fibrillation (CHADS2 Vasc score 4/ HASBLED 2) secondary hypercoagulability state Hypertension Hyperlipidemia Former polysubstance dependence Medical noncompliance Discharge Disposition: AMA SNF Discharge Will this Physician continue t: No Discharge Statement: "Patient was advised to return to the ER or call 911 if any headaches, dizziness, shortness of breath, chest pain, abdominal pain, bleeding, fevers, or worsening of medical condition. Patient was counseled about treatment plan, medications, possible side effects, patientverbalized understanding. All questions were answered to the best of my ability. This discharge took greater then 30 minutes in planning, reviewing documentation, counseling the patient, and discussing with other team members." ASSESSMENT ASSESSMENT Assessment ESTEVAN BRAN RESIDENT Jun 22, 2024 11:23
== END 2024-06-21 20:35 | disposition left against medical advice (07) | DRG 194 ==
LOC: EDBD 16:00 → ER 16:02 → TELE-WESTW 20:29 → TELE 20:39 → TELE-WESTW 23:10
PROVIDERS: ADMIT Student in an Organized Health Care Education/Training Program; ATTEND Student in an Organized Health Care Education/Training Program
DX: I13.0 Hypertensive heart and chronic kidney disease with heart failure and stage 1 through stage 4 chronic kidney disease, or unspecified chronic kidney disease (principal); N17.0 Acute kidney failure with tubular necrosis; I27.20 Pulmonary hypertension, unspecified; I50.23 Acute on chronic systolic (congestive) heart failure; I42.0 Dilated cardiomyopathy; E87.1 Hypo-osmolality and hyponatremia; I34.0 Nonrheumatic mitral (valve) insufficiency; I25.10 Atherosclerotic heart disease of native coronary artery without angina pectoris; E78.5 Hyperlipidemia, unspecified; E11.22 Type 2 diabetes mellitus with diabetic chronic kidney disease; N18.9 Chronic kidney disease, unspecified; I48.0 Paroxysmal atrial fibrillation; I44.0 Atrioventricular block, first degree; F19.20 Other psychoactive substance dependence, uncomplicated; K74.60 Unspecified cirrhosis of liver; Z95.5 Presence of coronary angioplasty implant and graft; Z87.891 Personal history of nicotine dependence; Z83.3 Family history of diabetes mellitus; Z82.49 Family history of ischemic heart disease and other diseases of the circulatory system; Z82.3 Family history of stroke; Z91.199 Patient's noncompliance with other medical treatment and regimen due to unspecified reason; Z79.899 Other long term (current) drug therapy; Z79.82 Long term (current) use of aspirin; Z91.013 Allergy to seafood
CPT/HCPCS: 36415; 80053; 82962; 85025; 96374; 99291; G0378

== ENCOUNTER 2024-08-30 09:36 | Inpatient (IN) | payer MEDICAID ==
[~2024-08-30] VITALS: Ht 182.9 cm; Wt 85.0 kg
[~2024-08-30 09:36] MED LIST changes: -MEXI150C15 PO
[2024-08-30 10:16] LABS: Basophils # (auto) 0.1 10 ^3/uL (0-0.2); Basophils % (auto) 0.7 % (0.0-2.0); Eosinophils # (auto) 0.1 10 ^3/uL (0-0.8); Eosinophils % (auto) 1.1 % (0.0-7.0); Hematocrit 42.9 % (41.0-53.0); Hemoglobin 14.6 g/dL (13.5-17.5); Lymphocytes % (auto) 14.4 % (10.0-50.0); Mean Corpuscular Hemoglobin 30.5 pg (28.0-32.0); Mean Corpuscular Hgb Conc. 34.1 g/dL (32.0-36.0); Mean Corpuscular Volume 89.6 fL (80.0-100.0); Monocytes # (auto) 0.8 10 ^3/uL (0-1.3); Monocytes % (auto) 10.8 % (0.0-12.0); Neutrophils # (auto) 5.1 10 ^3/uL (1.6-8.6); Nucleated Red Blood Cells % 0.3 %; Platelet Count (auto) 249 10^3/uL (140-450); Red Blood Cells 4.79 10^6/uL (4.5-5.90); Red Cell Distribution Width 21.1 % (11.8-14.3)
[2024-08-30 10:25] LABS: Anion Gap 13 (5-15); Carbon Dioxide 26 mmol/L (20-31); Chloride 95 mmol/L (98-107); Potassium 2.9 mmol/L (3.5-5.1); Sodium 134 mmol/L (136-145)
[2024-08-30 10:26] LABS: Calcium 10.9 mg/dL (8.7-10.4)
--- NOTE | 2024-08-30 10:29 | ED.PDOC ---
SOB-HPI HPI Comments 64-year-old male with PMHX CHF, HTN, DM presents with a chief complaint of chest tightness x onset last night with associated SOB. Patient states that his pain is localized to his sternal chest region, nonradiating, describes as tightness, and rates his pain a 7/10. Patient is currently sating at 100% on room air, but states that he feels like he cannot breathe. Patient is in moderate distress in triage, but has no pitting edema. Patient take Bumex and Spirolactone. Chief Complaint: Shortness of Breath Time Seen by MD: 09:50 Primary Care Provider: GABRIELA Booker notes: Medications, Allergies Information Source: Patient Mode of Arrival: Wheelchair Severity: Moderate Timing: Hours Duration: Since onset Context: At Rest History of: CHF Prehospital treatment: None Quality: Tightness Radiation: No Radiation Location: Substernal Past Medical History PAST MEDICAL HISTORY: AFIB, Angina, CAD, CHF, DM, High Lipids, HTN, PE Surgical History: Pacemaker, PTCA Family History Family History: Reviewed,noncontributory to illness, Family hx of DM, Family hx of heart bhavik, Family hx of HTN Social History Smoker: Quit Greater Than 1 Year, Cigarettes Alcohol: Sober Drugs: Denies Drug Use Lives In: Home Constitutional: denies: chills, diaphoresis, fatigue, fever, malaise, sweats, weakness, others EENTM: denies: blurred vision, double vision, ear bleeding, ear discharge, ear drainage, ear pain, ear ringing, eye pain, eye redness, hearing loss, mouth pain, mouth swelling, nasal discharge, nose bleeding, nose congestion, nose pain, photophobia, tearing, throat pain, throat swelling, voice changes, others Respiratory: reports: shortness of breath; denies: cough, hemoptysis, orthopnea, SOB at rest, SOB with excertion, stridor, wheezing, others Cardiovascular: reports: chest pain; denies: dizzy spells, diaphoresis, Dyspnea on exertion, edema, irregular heart beat, left arm pain, lightheadedness, palpitations, PND, syncope, others Gastrointestinal: denies: abdomen distended, abdominal pain, blood streaked bowels, constipated, diarrhea, dysphagia, difficulty swallowing, hematemesis, melena, nausea, poor appetite, poor fluid intake, rectal bleeding, rectal pain, vomiting, others Genitourinary: denies: burning, dysuria, flank pain, frequency, hematuria, incontinence, penile discharge, penile sore, pain, testicle pain, testicle swelling, urgency, others Neurological: denies: dizziness, fainting, headache, left sided numbness, left sided weakness, numbness, paresthesia, pre-existing deficit, right sided numbness, right sided weakness, seizure, speech problems, tingling, tremors, weakness, others Musculoskeletal: denies: back pain, gout, joint pain, joint swelling, muscle pain, muscle stiffness, neck pain, others Integumetry: denies: bruises, change in color, change in hair/nails, dryness, laceration, lesions, lumps, rash, wounds, others Allergic/Immunocompromised: denies: Difficulty Healing, Frequent Infections, Hives, Itching, others Hematologic/Lymphatic: denies: anemia, blood clots, easy bleeding, easy bruising, swollen glands, others Endocrine: denies: excessive hunger, excessive sweating, excessive thirst, excessive urination, flushing, intolerance to cold, intolerance to heat, unexp lained weight gain, unexplained weight loss, others Psychiatric: denies: anxiety, bipolar disorder, depression, hopeless, panic disorder, schizophrenia, sleepless, suicidal, others All Other Systems: Reviewed and Negative Physical Exam General Appearance: Moderate Distress, Normal HEENT: Normal ENT Inspection, Pharynx Normal, TMs Normal Neck: Full Range of Motion, Non-Tender, Normal, Normal Inspection Respiratory: Respiratory Distress Cardiovascular: No Edema, No JVD, No Murmur, No Gallop, Normal Peripheral Pulses, Regular Rate/Rhythm Breast Exam: Deferred Gastrointestinal: No Organomegaly, Non Tender, No Pulsatile Mass, Normal Bowel Sounds, Soft Genitalia: Deferred Pelvic: Deferred Rectal: Deferred Extremities: No calf tenderness, Normal capillary refill, Normal inspection, Normal range of motion, Non-tender, No pedal edema Musculoskeletal : Apperance: Normal Neurologic: Alert, hardware designer II-XII nml as Tested, No Motor Deficits, Normal Affect, Normal Mood, No Sensory Deficits Cerebellar Function: Normal Reflexes: Normal Skin: Dry, Normal Color, Warm Lymphatic: No Adenopathy EKG EKG : Pulse Rate (adult): 88 Ada: Normal Cardiac Rhythm: NSR Block: LBBB Hypertrophy: None ST: Normal Was a procedure done? Was a procedure done?: No Differential Dx Differential Diagnosis: Asthma, CHF, COPD, Pneumonia, Pneumothorax, Pulmonary Embolism, Respiratory Distress X-Ray, Labs, Meds, VS Vital Signs Date Time Temp Pulse Resp B/P (MAP) Pulse Ox O2 Delivery O2 Flow Rate FiO2 08/30/24 11:42 96 20 118/76 08/30/24 11:39 118/76 08/30/24 11:36 20 118/76 (90) 100 08/30/24 11:14 66 08/30/24 11:00 97.6 87 22 95/64 (74) 96 97.6 08/30/24 11:00 87 22 98 Room Air* 0 21 08/30/24 10:29 08/30/24 10:04 23 100 Room Air* 0 21 08/30/24 10:03 88 08/30/24 09:59 98.1 81 23 148/99 (115) 100 Lab Test 08/30/24 11:07 08/30/24 10:54 08/30/24 10:06 Range/Units Troponin I High Sensitivity 27 25 </=54 ng/L Urine Color Yellow Yellow Urine Clarity Clear Clear Urine pH 6.0 5.0-9.0 Urine Specific Armstrong 1.012 1.001-1.035 Urine Protein 1+ H Negative Urine Ketones Negative Negative Urine Blood Negative Negative /uL Urine Nitrite Negative Negative Urine Bilirubin Negative Negative Urine Urobilinogen 6 Negative mg/dL Urine Leukocyte Esterase Negative Negative /uL Urine RBC None seen 0 - 3 /hpf Urine Microscopic WBC 3 0-3 /HPF Urine Squamous Epithelial Cells None seen <5 /hpf Urine Bacteria None seen None Seen /hpf Urine Hyaline Casts Many 0 - 2 /lpf Urine Glucose 1+ H Normal mg/dL White Blood Count 7.0 4.4-10.8 10^3/uL Red Blood Count 4.79 4.5-5.90 10^6/uL Hemoglobin 14.6 13.5-17.5 g/dL Hematocrit 42.9 41.0-53.0 % Mean Corpuscular Volume 89.6 80.0-100.0 fL Mean Corpuscular Hemoglobin 30.5 28.0-32.0 pg Mean Corpuscular Hemoglobin Concent 34.1 32.0-36.0 g/dL Red Cell Distribution Width 21.1 H 11.8-14.3 % Platelet Count 249 140-450 10^3/uL Mean Platelet Volume 7.5 6.9-10.8 fL Neutrophils (%) (Auto) 73.0 37.0-80.0 % Lymphocytes (%) (Auto) 14.4 10.0-50.0 % Monocytes (%) (Auto) 10.8 0.0-12.0 % Eosinophils (%) (Auto) 1.1 0.0-7.0 % Basophils (%) (Auto) 0.7 0.0-2.0 % Neutrophils # (Auto) 5.1 1.6-8.6 10 ^3/uL Lymphocytes # (Auto) 1.0 0.4-5.4 10 ^3/uL Monocytes # (Auto) 0.8 0-1.3 10 ^3/uL Eosinophils # (Auto) 0.1 0-0.8 10 ^3/uL Basophils # (Auto) 0.1 0-0.2 10 ^3/uL Nucleated Red Blood Cells 0.3 % Sodium Level 134 L 136-145 mmol/L Potassium Level 2.9 L 3.5-5.1 mmol/L Chloride Level 95 L 98-107 mmol/L Carbon Dioxide Level 26 20-31 mmol/L Anion Gap 13 5-15 Blood Urea Nitrogen 20 9-23 mg/dL Creatinine 1.51 H 0.700-1.30 mg/dL Glomerular Filtration Rate Calc 52 >90 mL/min BUN/Creatinine Ratio 13.2 10.0-20.0 Serum Glucose 109 H 74-106 mg/dL Calcium Level 10.9 H 8.7-10.4 mg/dL B-Type Natriuretic Peptide 2093.65 0-100 pg/mL Current Medications Medications (Trade) Dose Ordered Sig/Brian Route Start Time Stop Time Status Last Admin Furosemide (Lasix Injection) 40 mg ONCE ONCE IV 08/30/24 10:00 08/30/24 10:01 DC 08/30/24 11:39 Potassium Chloride (Klor-Con Tablet) 60 meq ONCE ONCE PO 08/30/24 11:45 08/30/24 11:46 DC 08/30/24 11:43 Morphine Sulfate 4 mg ONCE ONCE IV 08/30/24 11:45 08/30/24 11:46 DC 08/30/24 11:42 Ondansetron HCl (Zofran) 4 mg ONCE ONCE IV 08/30/24 11:45 08/30/24 11:46 DC 08/30/24 11:43 PATIENT: ERIC VILLALTA: [id number]: [id number] : 1960 LOC: ER ROOM / BED: / AGE / SEX: 64 / M ADM STATUS: REG ER SERVICE [id number] ORDERING PHYSICIAN: SHAHLA RYAN MD PROCEDURE(s): CXR2 - CHEST TWO VIEWS ROUTINE REASON: ro pna ORDER NUMBER(s): [id number], ACCESSION NUMBER(s): [id number] EXAM: XR Chest, 2 Views CLINICAL INDICATION: ro pna TECHNIQUE: Frontal and lateral views of the chest. COMPARISON: XY CHEST TWO VIEWS ROUTINE on DOS: 06/19/24, XY CHEST TWO VIEWS ROUTINE on DOS: 05/30/23, XY CHEST TWO VIEWS ROUTINE on DOS: 05/14/23, XY CHEST TWO VIEWS ROUTINE on DOS: 04/04/23, CXR2 on DOS: 11/28/21 FINDINGS: LUNGS AND PLEURAL SPACES: See below. HEART: Cardiomegaly with mild congestion. Left cardiac. MEDIASTINUM: Unremarkable. Normal mediastinal contour. BONES/JOINTS: Unremarkable. No acute fracture. OTHER FINDINGS: . . . .. IMPRESSION: Cardiomegaly with mild congestion. ATED BY: NIYA ARNOLD MD DICTATED DATE/TIME: 08/30/241026 SIGNED BY: NIYA ARNOLD MD SIGNED DATE/TIME: 08/30/24 1027 64-year-old male presents here with difficulty breathing. And chest discomfort. Patient states he feels fluid overloaded. He does take Bumex and spironolactone however continues to report difficulty breathing. At this time chest x-ray has been done which does demonstrate cardiomegaly with mild congestion. I have given the patient Lasix IV in the ER. Blood work has been done which does demonstrate mild acute kidney injury and also hypokalemia of 2.9 which I have repleted. EKG does not demonstrate any significant ST changes today. Troponin is negative. At this time however given his continued difficulty breathing and chest discomfort i feel patient benefit from inpatient admission. Hospitalist team has been contacted. Time of 1ST Reevaluation: 10:20 Reevaluation 1ST: Unchanged Patient Education/Counseling: Diagnosis, Treatment, Prognosis Family Education/Counseling: Diagnosis, Treatment, Prognosis Departure 1 Departure Time of Disposition: 10:26 Impression: Primary Impression: Acute exacerbation of CHF (congestive heart failure) Qualified Codes: I50.23 - Acute on chronic systolic (congestive) heart failure Additional Impressions: Acute chest pain Hypokalemia Acute kidney injury Hypercalcemia Disposition: ADMITTED INPATIENT Admit to: Tele Condition: Stable Critical Care Note Critical Care Time?: No Stability Stability form required: No I personally scribed for SHAHLA RYAN MD ([email or web address]) on 08/30/24 at 10:29. Electronically submitted by Wm Allen ([email or web address]). I personally scribed for SHAHLA RYAN MD ([email or web address]) on 08/30/24 at 12:28. Electronically submitted by Wm Allen ([email or web address]). SHAHLA RYAN MD Aug 30, 2024 10:29
[2024-08-30 10:30] LABS: BUN/Creatinine Ratio 13.2 (10.0-20.0); Blood Urea Nitrogen 20 mg/dL (9-23)
[2024-08-30 10:36] LABS: Glucose 109 mg/dL (74-106)
[2024-08-30 11:00] VITALS: PULSE 87; RESP 22; O2SAT 98
[2024-08-30] MEDS: FUROSEMIDE 40 MG/4 ML VIAL IV ONE (11:39)
[2024-08-30] MEDS: MORPHINE SULFATE 4 MG/ML SYR/VIAL IV ONE (11:42)
[2024-08-30] MEDS: ONDANSETRON HCL 4 MG/2 ML VIAL IV ONE (11:43)
[2024-08-30] MEDS: POTASSIUM CHL 20 Meq TABLET PO ONE (11:43)
[2024-08-30 13:22] LABS: Urine Bacteria None Seen /hpf (None Seen)
[2024-08-30 13:40] LABS: Urine Blood Negative /uL (Negative); Urine Clarity Clear (Clear); Urine Color Yellow (Yellow); Urine Hyaline Cast MANY /lpf (0 - 2); Urine Protein, UAD 1+ (Negative); Urine Specific Gravity 1.012 (1.001-1.035); Urine Squamous Epithelial Cell None Seen /hpf (<5); Urine Urobilinogen 6 mg/dL (Negative); Urine WBC 3 /HPF (0-3)
[2024-08-30] MEDS ORDERED: NITROGLYCERIN 0.4 MG SL TAB SL PRN (15:30)
[2024-08-30] MEDS ORDERED: ALBUTEROL SULF 2.5 MG/0.5ML(0.5%) NEB SOLN NEB PRN (15:30)
[2024-08-30] MEDS ORDERED: ACETAMINOPHEN 325 MG TAB PO PRN (15:30)
[2024-08-30] MEDS ORDERED: DEXTROSE (50%) 50ML SYRG IV PRN (15:30)
[2024-08-30 15:50] VITALS: BP 100/76; PULSE 83; RESP 18; TEMP 97.8; O2SAT 98
--- NOTE | 2024-08-30 15:57 | DVHHP2 ---
History of Present Illness Reason for Visit: CHF exacerbation History of Present Illness This is a 64-year-old male with history of hypertension, hyperlipidemia, DM, AFib, angina, CAD, CHF, ICD and PE presents to ED with chief complaint of shortness of breath associated with chest tightness that started last night. Upon evaluation of patient respiratory distress noted but does report shortness of breaths and compliancy in taking his prescribed medications that includes Bumex and spirolactone. He denied recent injury or trauma to his chest. The patient is concerned about his symptoms and would like to be further evaluated and treated. The patient denies fever, chills, headache, dizziness, palpitatio n, nausea, vomiting, abdominal pain, diarrhea, constipation and other associated symptoms. The patient will be admitted under hospitalist care to the telemetry unit for continuous monitoring, plan has been discussed with the patient and primary RN. Cardiovascular: AFIB, CAD, CHF, HTN, hyperipidemia Pulmonary: Pulmonary embolus Endocrine: Diabetes Past Surgical History ICD PTCA Family History: None Smoke: Quit ALCOHOL: heavy (Sober) Drugs: None Lives: with Family Domestic Violence: Neg Review of Systems Respiratory: Shortness of breath Cardiovascular: Chest Pain Allergies: Coded Allergies: Shellfish Allergy (Unverified Allergy, Severe, 09/11/23) CRAB Uncoded Allergies: CRAB (Allergy, Severe, 08/06/17) Medications Current Medications Medications Dose Ordered Sig/Brian Route Start Time Stop Time Status Last Admin Dose Admin Ondansetron HCl 4 mg Q4HP PRN IV 08/30/24 15:30 Acetaminophen 650 mg Q6HP PRN PO 08/30/24 15:30 Nitroglycerin 0.4 mg Q5MINP PRN SL 08/30/24 15:30 Morphine Sulfate 2 mg Q30M PRN IV 08/30/24 15:30 Diagnostic Test (Pha) 1 strip ACHS 08/30/24 17:00 Insulin Human Regular ACHS SC 08/30/24 17:00 Dextrose 50 ml UD PRN IV 08/30/24 15:30 Amiodarone HCl 200 mg Q12HR PO 08/30/24 22:00 Aspirin 81 mg DAILY PO 08/31/24 10:00 Carvedilol 3.125 mg BID PO 08/30/24 22:00 Digoxin 0.125 mg DAILY PO 08/31/24 10:00 Ivabradine 5 mg BID PO 08/30/24 22:00 Pantoprazole Sodium 40 mg DAILY PO 08/31/24 10:00 Sacubitril/ Valsartan 1 tab BID PO 08/30/24 22:00 Cholecalciferol 2,000 unit DAILY PO 08/31/24 10:00 Patient Own Medication 10 mg DAILY PO 08/31/24 10:00 Potassium Chloride 20 meq DAILY PO 08/31/24 10:00 Pravastatin Sodium 10 mg HS PO 08/31/24 22:00 Patient Own Medication 1 tab DAILY PO 08/31/24 10:00 Albuterol 2.5 mg Q2HPRN PRN NEB 08/30/24 15:30 Midodrine 10 mg TID PO 08/30/24 22:00 Exam Vital Signs Vital Signs Date Time Temp Pulse Resp B/P (MAP) Pulse Ox O2 Delivery O2 Flow Rate FiO2 08/30/24 15:15 97.8 83 18 100/76 (84) 98 97.8 08/30/24 11:00 Room Air* 0 21 General Appearance: Alert, Oriented X3, Cooperative, No acute distress HEENT: Atraumatic, PERRLA, EOMI, Mucous membr. moist/pink Respiratory: Clear to auscultation, Normal air movement Cardiovascular: Other (Murmur) Abdominal: Normal bowel sounds, Soft, No tenderness, No hepatospenomegaly, No masses Extremities: No clubbing, No cyanosis, No edema, Normal pulses, No tenderness/swelling Skin: No rashes, No breakdown Neuro: Normal gait, Normal speech, Strength at 5/5 X4 ext, Sensation intact, Cranial nerves 3-12 NL, Reflexes 2+ Psych/Mental Status: Mental status NL Labs/Xrays Labs Test 08/30/24 11:07 08/30/24 10:54 08/30/24 10:06 Range/Units Troponin I High Sensitivity 27 </=54 ng/L Urine Color Yellow Yellow Urine Clarity Clear Clear Urine pH 6.0 5.0-9.0 Urine Specific [place]augh 1.012 1.001-1.035 Urine Protein 1+ H Negative Urine Ketones Negative Negative Urine Blood Negative Negative /uL Urine Nitrite Negative Negative Urine Bilirubin Negative Negative Urine Urobilinogen 6 Negative mg/dL Urine Leukocyte Esterase Negative Negative /uL Urine RBC None seen 0 - 3 /hpf Urine Microscopic WBC 3 0-3 /HPF Urine Squamous Epithelial Cells None seen <5 /hpf Urine Bacteria None seen None Seen /hpf Urine Hyaline Casts Many 0 - 2 /lpf Urine Glucose 1+ H Normal mg/dL White Blood Count 7.0 4.4-10.8 10^3/uL Red Blood Count 4.79 4.5-5.90 10^6/uL Hemoglobin 14.6 13.5-17.5 g/dL Hematocrit 42.9 41.0-53.0 % Mean Corpuscular Volume 89.6 80.0-100.0 fL Mean Corpuscular Hemoglobin 30.5 28.0-32.0 pg Mean Corpuscular Hemoglobin Concent 34.1 32.0-36.0 g/dL Red Cell Distribution Width 21.1 H 11.8-14.3 % Platelet Count 249 140-450 10^3/uL Mean Platelet Volume 7.5 6.9-10.8 fL Neutrophils (%) (Auto) 73.0 37.0-80.0 % Lymphocytes (%) (Auto) 14.4 10.0-50.0 % Monocytes (%) (Auto) 10.8 0.0-12.0 % Eosinophils (%) (Auto) 1.1 0.0-7.0 % Basophils (%) (Auto) 0.7 0.0-2.0 % Neutrophils # (Auto) 5.1 1.6-8.6 10 ^3/uL Lymphocytes # (Auto) 1.0 0.4-5.4 10 ^3/uL Monocytes # (Auto) 0.8 0-1.3 10 ^3/uL Eosinophils # (Auto) 0.1 0-0.8 10 ^3/uL Basophils # (Auto) 0.1 0-0.2 10 ^3/uL Nucleated Red Blood Cells 0.3 % Sodium Level 134 L 136-145 mmol/L Potassium Level 2.9 L 3.5-5.1 mmol/L Chloride Level 95 L 98-107 mmol/L Carbon Dioxide Level 26 20-31 mmol/L Anion Gap 13 5-15 Blood Urea Nitrogen 20 9-23 mg/dL Creatinine 1.51 H 0.700-1.30 mg/dL Glomerular Filtration Rate Calc 52 >90 mL/min BUN/Creatinine Ratio 13.2 10.0-20.0 Serum Glucose 109 H 74-106 mg/dL Calcium Level 10.9 H 8.7-10.4 mg/dL B-Type Natriuretic Peptide 2093.65 0-100 pg/mL ORDERING PHYSICIAN: SHAHLA RYAN MD PROCEDURE(s): CXR2 - CHEST TWO VIEWS ROUTINE REASON: ro pna ORDER NUMBER(s): [id number], ACCESSION NUMBER(s): [id number] EXAM: XR Chest, 2 Views CLINICAL INDICATION: ro pna TECHNIQUE: Frontal and lateral views of the chest. COMPARISON: XY CHEST TWO VIEWS ROUTINE on DOS: 06/19/24, XY CHEST TWO VIEWS ROUTINE on DOS: 05/30/23, XY CHEST TWO VIEWS ROUTINE on DOS: 05/14/23, XY CHEST TWO VIEWS ROUTINE on DOS: 04/04/23, CXR2 on DOS: 11/28/21 FINDINGS: LUNGS AND PLEURAL SPACES: See below. HEART: Cardiomegaly with mild congestion. Left cardiac. MEDIASTINUM: Unremarkable. Normal mediastinal contour. BONES/JOINTS: Unremarkable. No acute fracture. OTHER FINDINGS: . . . .. IMPRESSION: Cardiomegaly with mild congestion. ATED BY: NIYA ARNOLD MD DICTATED DATE/TIME: 08/30/24 102 SIGNED BY: NIYA ARNOLD MD SIGNED DATE/TIME: 08/30/24 102 CC: Assessment/Plan Assessment/Plan CHF exacerbation--patient complain of shortness of breath associated with chest tightness that started last night Patient with history of ICD M PTCA Patient states compliant C on medication that includes Bumex and spirolactone Patient received Lasix 40 mg IV push and potassium 60 mEq supplement in the ER Admit to telemetry unit for continuous monitoring Reviewed CBC which is normal Reviewed BMP potassium 2.9, creatinine 1.51 Reviewed BNP which is 2093.65 Reviewed UDS which is normal Ordered echocardiogram pending Consult Dr. Villeda enrichment director as this is his patient Cardiac enzyme negative x2 BNP in a.m. Hold p.o. diuretic medication for now IV Lasix Hypokalemia 2.9 Potassium supplement given Ordered magnesium pending result Continue to monitor labs and replace as needed RADHA likely due to medications Creatinine 1.51 Reviewed previous lab which is consistent Avoid nephrotoxic agents Monitor labs We will consider to consult casing flusher if needed Type 2 DM 1800 ADA diet Regular insulin mild SS a.c. and HS Accu-Cheks per protocol Reviewed previous HGB A1c which was 6.2 Hypertension Continue antihypertensive agent Continue to monitor BP Atrial fibrillation Continue amiodarone as prescribed Continue to monitor ICD Patient states has appointment to check next month with Dr. Villeda Reconcile home medication DVT prophylaxis PUD prophylaxis Labs in a.m. Discussed plan of care with the patient in which all questions concerns have been addressed Plan discussed with: Patient My Orders Orders - AMITA BETHEA CLOTH MENDER Procedure Category Date Status Time Magnesium LAB 08/30/24 In Process 15:17 B-Type Natriuretic LAB 08/31/24 Verified Peptide 04:00 Admit ADMIT 08/30/24 Transmitted 15:17 2 Gm Sodium Diet DIET 08/30/24 Transmitted Dinner Ondansetron Hcl PHA 08/30/24 In Process (Zofran) 15:30 Complete Blood Count LAB 08/31/24 Verified 04:00 Comprehensive LAB 08/31/24 Verified Metabolic Panel 04:00 Echo 2d Mode Cardiac US 08/30/24 Logged DOP 15:17 Condition: Fair JIMMIE 08/30/24 In Process 15:17 Acetaminophen Tablet PHA 08/30/24 In Process (Tylenol Tablet) 15:30 Bedrest With Bathroom JIMMIE 08/30/24 In Process Privileg 15:17 Nitroglycerin PHA 08/30/24 In Process Sublingual (Ntrostat 15:30 Morphine Sulfate PHA 08/30/24 In Process Injection 15:30 Stat Ekg For Chest JIMMIE 08/30/24 In Process Pain 15:17 Notify Of Changes JIMMIE 08/30/24 In Process From Base 15:17 Cotton Bag Clipper For JIMMIE 08/30/24 In Process 24 Hours 15:17 Emergency Dysrhythmia JIMMIE 08/30/24 In Process Protocol 15:17 Rhythm Strips Once JIMMIE 08/30/24 In Process Every Shift 15:17 Oxygen By Nasal RT 08/30/24 Transmitted Cannula 15:17 Glucose Blood PHA 08/30/24 In Process (Accu-Chek Comfort 17:00 Insulin R (Human) PHA 08/30/24 In Process (Insulin R) 17:00 Dextrose 50% Syringe PHA 08/30/24 In Process 15:30 Amiodarone Tablet PHA 08/30/24 In Process (Cordarone Tablet) 22:00 Aspirin Enteric PHA 08/31/24 In Process Coated Tablet 10:00 Carvedilol Tablet PHA 08/30/24 In Process (Coreg Tablet) 22:00 Digoxin Tablet PHA 08/31/24 In Process (Lanoxin Tablet) 10:00 Ivabradine (Corlanor) PHA 08/30/24 In Process 22:00 Pantoprazole Tablet PHA 08/31/24 In Process (Protonix Tablet) 10:00 Sacubitril-Valsartan PHA 08/30/24 In Process (Entresto 24-26 Mg 22:00 Cholecalciferol PHA 08/31/24 In Process Tablet (Vitamin D3 10:00 (Nf) Dapagliflozin PHA 08/31/24 In Process Propanediol (Farxiga) 10:00 Potassium Er Tablet PHA 08/31/24 In Process (Klor-Con Tablet) 10:00 Pravastatin Sodium PHA 08/31/24 In Process Tablet (Pravachol Tab 22:00 (Nf) Vericiguat PHA 08/31/24 In Process (Verquvo) 10:00 Chest Portable XY 08/31/24 Logged 04:00 *Cons[address] Villeda CONS 08/30/24 Transmitted 15:22 Albuterol Medneb PHA 08/30/24 In Process (Ventolin Medneb) 15:30 Midodrine Tablet PHA 08/30/24 In Process (Proamatine Tablet) 22:00 Date of Service: Aug 30, 2024 Billing Provider: AMITA BETHEA Common Visit Codes: [id number] INP/OBS CARE (HIGH) AMITA BETHEA Aug 30, 2024 15:57
[2024-08-30] MEDS: ONDANSETRON HCL 4 MG/2 ML VIAL IV PRN (16:16)
[2024-08-30] MEDS: ACCU-CHEK COMFORT CURVE STRIP VI SCH (17:00)
[2024-08-30] MEDS: InsuLIN REG 1unit/0.01ml Soln (100units/ml) SC SCH (17:00)
[2024-08-30] MEDS: MORPHINE SULFATE INJ 2 MG/ml SYRG IV PRN (18:00)
[2024-08-30 18:18] VITALS: PULSE 95; RESP 18; O2SAT 96
[2024-08-30 20:00] VITALS: PULSE 103
[2024-08-30 21:00] VITALS: BP 115/83; PULSE 94; RESP 18; TEMP 96.3; O2SAT 95
[2024-08-30] MEDS: SACUBITRIL-VALSARTAN 24mg/26mg TAB PO SCH (22:00)
[2024-08-30] MEDS ORDERED: MIDODRINE HCL 10 MG TAB PO SCH (22:00)
[2024-08-30] MEDS: MIDODRINE HCL 10 MG TAB PO SCH (22:00)
[2024-08-30] MEDS: AMIODARONE HCL 200 MG TAB PO SCH (22:00)
[2024-08-30] MEDS: CARVEDILOL 3.125 MG TAB PO SCH (22:00)
[2024-08-30] MEDS: IVABRADINE 5 MG TAB PO SCH (22:00)
[2024-08-30 22:33] VITALS: O2SAT 96
--- NOTE | 2024-08-30 23:40 | DVHINCON2 ---
Date of service: Aug 30, 2024 Referring Physician Tavo Reason for Consultation Atrial fibrillation History of Present Illness This is a 64-year-old male with a PMH of CHF, HTN, DM who presented to the ED with complaints of chest tightness that began last night with associated SOB. Patient states that his pain is localized to his sternal chest region, nonradiating, describes as tightness, and rates his pain a 7/10. Patient is currently sating at 100% on room air, but states that he feels like he cannot breathe. Patient is in moderate distress in triage, but has no pitting edema. Patient reports he takes Bumex and Spirolactone at home. Chest x-ray shows cardiomegaly with mild congestion. EKG is NSR at 88. Patient was admitted to the hospital. I am asked to consult on this patient. Family History: FH: arthritis FH: cancer aunt, Onset:50's - 60 FH: diabetes mellitus G8 MOTHER, , Onset:Unknown FH: stroke G8 MOTHER, , Onset:Unknown FHx: heart disease Family history: Cardiovascular disease G8 MOTHER, , Onset:Unknown Family history: Hypertension G8 MOTHER, , Onset:Unknown Allergies: Coded Allergies: Shellfish Allergy (Unverified Allergy, Severe, 09/11/23) CRAB Uncoded Allergies: CRAB (Allergy, Severe, 08/06/17) Home Meds Active Scripts Potassium Chloride (Potassium Chloride ER) 10 Meq Tab, 20 MEQ PO DAILY for 30 Days, #60 TAB Prov:MEME JAIME MD 04/30/24 Bumetanide (Bumetanide) 2 Mg Tab, 1 TAB PO BID for 30 Days, #60 TAB 1 Refill Prov:MEME JAIME MD 04/30/24 Amiodarone HCl (Amiodarone HCl) 200 Mg Tab, 200 MG PO Q12HR for 30 Days, #60 TAB Prov:ESTEVAN BRAN RESIDENT 02/07/24 Acetaminophen (Acetaminophen) 325 Mg Tab, 325 MG PO Q4HP PRN for 10 Days, #50 TAB Prov:ESTEVAN BRAN RESIDENT 02/07/24 Reported Medications Pantoprazole Sodium Sesquihydr (Pantoprazole Sodium) 40 Mg Tab, 40 MG PO DAILY, TAB 05/12/24 Simvastatin (Simvastatin) 10 Mg Tab, 10 MG PO DAILY, MG 05/12/24 Midodrine HCl (Midodrine Hydrochloride) 5 Mg Tab, 2 TAB PO TID, TAB 05/10/24 Cholecalciferol (VITAMIN D3) 2,000 Unit Tab, 1 TAB PO DAILY 01/09/24 Digoxin (Digoxin) 125 Mcg Tab, 1 TAB PO DAILY 01/09/24 Vericiguat (Verquvo) 10 Mg Tab, 1 TAB PO DAILY 01/09/24 Ivabradine Hydrochloride (Corlanor) 5 Mg Tab, 1 TAB PO BID 08/16/23 Spironolactone (Spironolactone) 25 Mg Tab, 1 TAB PO BID 05/15/23 Sacubitril-Valsartan (Entresto 24-26 mg) 1 Tab Tab, 1 TAB PO BID, TAB 05/15/23 Nitroglycerin (NTROSTAT SUBLINGUAL) 0.4 Mg Sl, 0.4 MG SL PRN, TAB *MAY REPEAT EVERY 5 MINUTES X 3 TOTAL IF NO RELIEF, INITIATE ANALGESIC THERAPY. NOTIFY PHYSICIAN *Do not crush. 05/15/23 Dapagliflozin Propanediol (Farxiga) 10 Mg Tab, 10 MG PO DAILY, TAB 05/15/23 Carvedilol (Carvedilol) 3.125 Mg Tab, 3.125 MG PO BID, MG 05/15/23 Aspirin (Aspir-Low) 81 Mg Tab, 81 MG PO DAILY, MG 05/15/23 Current Medications Current Medications Medications (Trade) Dose Ordered Sig/Brian Route PRN Reason Start Time Stop Time Status Last Admin Ondansetron HCl (Zofran) 4 mg Q4HP PRN IV NAUSEA / VOMITING 08/30/24 15:30 08/30/24 21:26 Acetaminophen (Tylenol Tablet) 650 mg Q6HP PRN PO PAIN SCALE 1-3 OR TEMP>100.4 08/30/24 15:30 Nitroglycerin (Ntrostat Sublingual) 0.4 mg Q5MINP PRN SL FOR CHEST PAIN 08/30/24 15:30 Morphine Sulfate 2 mg Q30M PRN IV FOR CHEST PAIN 08/30/24 15:30 08/30/24 18:00 Diagnostic Test (Pha) (Accu-Chek Comfort Curve T) 1 strip ACHS 08/30/24 17:00 08/30/24 17:00 Insulin Human Regular (InsuLIN R) ACHS SC 08/30/24 17:00 Dextrose 50 ml UD PRN IV Blood Sugar LESS THAN 60 08/30/24 15:30 Amiodarone HCl (Cordarone Tablet) 200 mg Q12HR PO 08/30/24 22:00 Aspirin (Ecotrin Enteric Coated Tablet) 81 mg DAILY PO 08/31/24 10:00 Carvedilol (Coreg Tablet) 3.125 mg BID PO 08/30/24 22:00 Digoxin (Lanoxin Tablet) 0.125 mg DAILY PO 08/31/24 10:00 Ivabradine (Corlanor) 5 mg BID PO 08/30/24 22:00 Pantoprazole Sodium (Protonix Tablet) 40 mg DAILY PO 08/31/24 10:00 Sacubitril/ Valsartan (Entresto 24-26 Mg tab) 1 tab BID PO 08/30/24 22:00 Cholecalciferol (Vitamin D3 Tablet) 2,000 unit DAILY PO 08/31/24 10:00 Patient Own Medication 10 mg DAILY PO 08/31/24 10:00 Midodrine (Proamatine Tablet) 10 mg TID PO 08/30/24 22:00 08/30/24 15:43 DC Potassium Chloride (Klor-Con Tablet) 20 meq DAILY PO 08/31/24 10:00 Pravastatin Sodium (Pravachol Tablet) 10 mg HS PO 08/31/24 22:00 Patient Own Medication 1 tab DAILY PO 08/31/24 10:00 Albuterol (Ventolin Medneb) 2.5 mg Q2HPRN PRN NEB SHORTNESS OF BREATH 08/30/24 15:30 Midodrine (Proamatine Tablet) 10 mg TID PO 08/30/24 22:00 Furosemide (Lasix Injection) 20 mg DAILY IV 08/31/24 10:00 Review of Systems Constitutional: denies: chills, diaphoresis, fatigue, fever, malaise, sweats, weakness, others EENTM: denies: blurred vision, double vision, ear bleeding, ear discharge, ear drainage, ear pain, ear ringing, eye pain, eye redness, hearing loss, mouth pain, mouth swelling, nasal discharge, nose bleeding, nose congestion, nose pain, photophobia, tearing, throat pain, throat swelling, voice changes, others Respiratory: reports: shortness of breath; denies: cough, hemoptysis, orthopnea, SOB at rest, SOB with excertion, stridor, wheezing, others Cardiovascular: reports: chest pain; denies: dizzy spells, diaphoresis, Dyspnea on exertion, edema, irregular heart beat, left arm pain, lightheadedness, palpitations, PND, syncope, others Gastrointestinal: denies: abdomen distended, abdominal pain, blood streaked bowels, constipated, diarrhea, dysphagia, difficulty swallowing, hematemesis, melena, nausea, poor appetite, poor fluid intake, rectal bleeding, rectal pain, vomiting, others Genitourinary: denies: burning, dysuria, flank pain, frequency, hematuria, incontinence, penile discharge, penile sore, pain, testicle pain, testicle swelling, urgency, others Neurological: denies: dizziness, fainting, headache, left sided numbness, left sided weakness, numbness, paresthesia, pre-existing deficit, right sided numbness, right sided weakness, seizure, speech problems, tingling, tremors, weakness, others Musculoskeletal: denies: back pain, gout, joint pain, joint swelling, muscle pain, muscle stiffness, neck pain, others Integumetry: denies: bruises, change in color, change in hair/nails, dryness, laceration, lesions, lumps, rash, wounds, others Allergic/Immunocompromised: denies: Difficulty Healing, Frequent Infections, Hives, Itching, others Hematologic/Lymphatic: denies: anemia, blood clots, easy bleeding, easy bruising, swollen glands, others Endocrine: denies: excessive hunger, excessive sweating, excessive thirst, excessive urination, flushing, intolerance to cold, intolerance to heat, unexplained weight gain, unexplained weight loss, others Psychiatric: denies: anxiety, bipolar disorder, depression, hopeless, panic disorder, schizophrenia, sleepless, suicidal, others All Other Systems: Reviewed and Negative Vital Signs Vital Signs Date Time Temp Pulse Resp B/P (MAP) Pulse Ox O2 Delivery O2 Flow Rate FiO2 08/30/24 21:00 96.3 94 18 115/83 (94) 95 96.3 08/30/24 18:18 Room Air* 0 21 Physical Exam GENERAL: Awake, alert, oriented. LUNGS: Clear. CARDIOVASCULAR: Heart sounds are good. ABDOMEN: Soft. Labs/Diagnostic Data Labs Test 08/30/24 21:36 08/30/24 16:26 08/30/24 11:07 08/30/24 10:54 Range/Units POC Glucose 145 H 70-106 mg/dl Potassium Level 3.6 3.5-5.1 mmol/L Troponin I High Sensitivity 27 </=54 ng/L Urine Color Yellow Yellow Urine Clarity Clear Clear Urine pH 6.0 5.0-9.0 Urine Specific Bonnie 1.012 1.001-1.035 Urine Protein 1+ H Negative Urine Ketones Negative Negative Urine Blood Negative Negative /uL Urine Nitrite Negative Negative Urine Bilirubin Negative Negative Urine Urobilinogen 6 Negative mg/dL Urine Leukocyte Esterase Negative Negative /uL Urine RBC None seen 0 - 3 /hpf Urine Microscopic WBC 3 0-3 /HPF Urine Squamous Epithelial Cells None seen <5 /hpf Urine Bacteria None seen None Seen /hpf Urine Hyaline Casts Many 0 - 2 /lpf Urine Glucose 1+ H Normal mg/dL Test 08/30/24 10:06 Range/Units White Blood Count 7.0 4.4-10.8 10^3/uL Red Blood Count 4.79 4.5-5.90 10^6/uL Hemoglobin 14.6 13.5-17.5 g/dL Hematocrit 42.9 41.0-53.0 % Mean Corpuscular Volume 89.6 80.0-100.0 fL Mean Corpuscular Hemoglobin 30.5 28.0-32.0 pg Mean Corpuscular Hemoglobin Concent 34.1 32.0-36.0 g/dL Red Cell Distribution Width 21.1 H 11.8-14.3 % Platelet Count 249 140-450 10^3/uL Mean Platelet Volume 7.5 6.9-10.8 fL Neutrophils (%) (Auto) 73.0 37.0-80.0 % Lymphocytes (%) (Auto) 14.4 10.0-50.0 % Monocytes (%) (Auto) 10.8 0.0-12.0 % Eosinophils (%) (Auto) 1.1 0.0-7.0 % Basophils (%) (Auto) 0.7 0.0-2.0 % Neutrophils # (Auto) 5.1 1.6-8.6 10 ^3/uL Lymphocytes # (Auto) 1.0 0.4-5.4 10 ^3/uL Monocytes # (Auto) 0.8 0-1.3 10 ^3/uL Eosinophils # (Auto) 0.1 0-0.8 10 ^3/uL Basophils # (Auto) 0.1 0-0.2 10 ^3/uL Nucleated Red Blood Cells 0.3 % Sodium Level 134 L 136-145 mmol/L Chloride Level 95 L 98-107 mmol/L Carbon Dioxide Level 26 20-31 mmol/L Anion Gap 13 5-15 Blood Urea Nitrogen 20 9-23 mg/dL Creatinine 1.51 H 0.700-1.30 mg/dL Glomerular Filtration Rate Calc 52 >90 mL/min BUN/Creatinine Ratio 13.2 10.0-20.0 Serum Glucose 109 H 74-106 mg/dL Calcium Level 10.9 H 8.7-10.4 mg/dL Magnesium Level 2.0 1.6-2.6 mg/dL B-Type Natriuretic Peptide 2093.65 0-100 pg/mL Assessment CHF exacerbation. Hypokalemia. RADHA likely due to medications. Type 2 DM. Hypertension. Atrial fibrillation. ICD. Plan/Recommendation I agree with your ongoing assessment and care of plan. Telemetry reviewed. Echocardiogram. Amiodarone. Aspirin. Coreg. Diuretics with Lasix. Digoxin. Nitro SL. Morphine for pain management. Entresto. GI prophylactics. Additional plan as per the hospital course. A total of 45 minutes was spent reviewing the patient record, examining the patient, making a diagnostic and therapeutic plan, discussing this plan with medical personnel, following up on diagnostic studies and following the patient for clinical stability excluding any and all procedures. At least 50% of this time was spent in direct, [id number] contact. Plan discussed with: Patient CHAITANYA CULP MD Aug 30, 2024 23:03
[2024-08-31] VITALS (10 sets, daily range): BP systolic 95–107; BP diastolic 58–68; PULSE 53–89; RESP 17–18; TEMP 96.4–98.1; O2SAT 95–100
[2024-08-31] MEDS: METOCLOPRAMIDE HCL 5MG/ml INJ 2ml VIAL IV ONE (01:36)
--- NOTE | 2024-08-31 05:27 | DVH ---
CHEST RADIOGRAPH Indication: follow up Technique: Single frontal view of the chest was obtained Comparison: XY CHEST PORTABLE on DOS: 05/09/24, XY CHEST PORTABLE on DOS: 04/25/24, XY CHEST PORTABLE on DOS: 02/13/24 IMPRESSION: The heart is enlarged with multilead left cardiac device. [id number] pulmonary vascular congest ion, similar. No sizable effusion or pneumothorax. Multi lead left cardiac device with fractured left ventricular lead.
--- NOTE | 2024-08-31 07:20 | ECG ---
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 Electronically Signed On 08-31-2024 14:45:03 PST by Adrián Mock Please click the below link to view image of tracing.
[2024-08-31 09:18] LABS: Basophils # (auto) 0.1 10 ^3/uL (0-0.2); Basophils % (auto) 1.3 % (0.0-2.0); Eosinophils # (auto) 0.4 10 ^3/uL (0-0.8); Eosinophils % (auto) 6.7 % (0.0-7.0); Hematocrit 43.5 % (41.0-53.0); Hemoglobin 14.6 g/dL (13.5-17.5); Lymphocytes % (auto) 17.3 % (10.0-50.0); Mean Corpuscular Hemoglobin 30.6 pg (28.0-32.0); Mean Corpuscular Hgb Conc. 33.7 g/dL (32.0-36.0); Mean Corpuscular Volume 90.8 fL (80.0-100.0); Monocytes # (auto) 0.9 10 ^3/uL (0-1.3); Monocytes % (auto) 15.4 % (0.0-12.0); Neutrophils # (auto) 3.4 10 ^3/uL (1.6-8.6); Neutrophils % (auto) 59.3 % (37.0-80.0); Nucleated Red Blood Cells % 0.2 %; Platelet Count (auto) 232 10^3/uL (140-450); Red Blood Cells 4.79 10^6/uL (4.5-5.90); Red Cell Distribution Width 21.8 % (11.8-14.3); White Blood Cell 5.7 10^3/uL (4.4-10.8)
[2024-08-31 09:36] LABS: Alanine Aminotransferase 19 U/L (7-40); Anion Gap 9 (5-15); Aspartate Aminotransferase 21 U/L (13-40); BUN/Creatinine Ratio 12.7 (10.0-20.0); Blood Urea Nitrogen 20 mg/dL (9-23); Carbon Dioxide 25 mmol/L (20-31); Glucose 99 mg/dL (74-106); Potassium 3.8 mmol/L (3.5-5.1)
[2024-08-31 09:37] LABS: Total Protein 7.8 g/dL (5.7-8.2)
[2024-08-31 09:47] LABS: Albumin 5.1 g/dL (3.2-4.8); Alkaline Phosphatase 159 U/L (46-116); Bilirubin, Total 3.3 mg/dL (0.2-1.0); Calcium 10.7 mg/dL (8.7-10.4); Chloride 98 mmol/L (98-107); Sodium 132 mmol/L (136-145)
[2024-08-31] MEDS: VERICIGUAT PO SCH (10:00)
[2024-08-31] MEDS: DAPAGLIFLOZIN 10 MG PO SCH (10:00)
[2024-08-31] MEDS: FUROSEMIDE 20 MG/2 ML VIAL IV SCH (10:41)
[2024-08-31] MEDS: ASPirin-EC 81 mg tab PO SCH (11:21)
[2024-08-31] MEDS: POTASSIUM CHL 20 Meq TABLET PO SCH (11:21)
[2024-08-31] MEDS: DIGOXIN 0.125 MG TAB PO SCH (11:22)
[2024-08-31] MEDS: PANTOPRAZOLE 40 MG TAB PO SCH (11:22)
[2024-08-31] MEDS: CHOLECALCIFEROL (VITD3) 1,000UNIT=25mCg TAB PO SCH (11:22)
[2024-08-31] MEDS ORDERED: IOHEXOL 300 MG/ML 100ML BOTTLE IJ ONE (12:12)
--- NOTE | 2024-08-31 12:56 | ECG ---
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
[2024-08-31] MEDS: HYDROcodone-ACET 5/325MG TAB PO PRN (12:57)
[2024-08-31] MEDS: ASPirin-EC 81 mg tab PO ONE (12:59)
--- NOTE | 2024-08-31 20:34 | DVHPN2 ---
Subjective The patient is seen and examined at bedside. Complain of chest pain. The patient has stated that he feel his chest heavy by someone sitting on it Reviewed: Care Plan, H&P, Labs, Medications, Previous Orders, Radiology Changes from previous H/P or p: No Changes Cardiovascular: Chest Pain Respiratory: Shortness of breath Objective Vitals Vital Signs Date Time Temp Pulse Resp B/P (MAP) Pulse Ox O2 Delivery O2 Flow Rate FiO2 08/31/24 20:07 98 Room Air 0.0 08/31/24 20:07 21 08/31/24 16:59 98.1 88 17 105/65 (78) 98.1 Intake/Output Intake and Output 08/31/24 06:59 Intake Total 0 ml Balance 0 ml Intake Oral 0 ml General Appearance: Alert, Oriented X3, Cooperative, No acute distress HEENT: Atraumatic, PERRLA, EOMI, Mucous membr. moist/pink Neck: Supple Lungs: Clear to auscultation, Normal air movement Cardiovascular: Regular rate, Normal S1, Normal S2, No murmurs, Gallops, Rubs Abdomen: Normal bowel sounds, Soft, No tenderness Neuro: Cranial nerves 3-12 NL Psych/Mental Status: Mental status NL Medications Current Medications Medications Dose Ordered Sig/Brian Route Start Time Stop Time Status Last Admin Dose Admin Ondansetron HCl 4 mg Q4HP PRN IV 08/30/24 15:30 08/31/24 15:05 4 MG Acetaminophen 650 mg Q6HP PRN PO 08/30/24 15:30 Nitroglycerin 0.4 mg Q5MINP PRN SL 08/30/24 15:30 Morphine Sulfate 2 mg Q30M PRN IV 08/30/24 15:30 08/30/24 18:00 2 MG Diagnostic Test (Pha) 1 strip ACHS 08/30/24 17:00 08/31/24 17:00 1 STRIP Insulin Human Regular ACHS SC 08/30/24 17:00 Dextrose 50 ml UD PRN IV 08/30/24 15:30 Amiodarone HCl 200 mg Q12HR PO 08/30/24 22:00 08/31/24 11:19 200 MG Aspirin 81 mg DAILY PO 08/31/24 10:00 08/31/24 11:21 81 MG Carvedilol 3.125 mg BID PO 08/30/24 22:00 08/31/24 11:20 3.125 MG Digoxin 0.125 mg DAILY PO 08/31/24 10:00 08/31/24 11:22 0.125 MG Ivabradine 5 mg BID PO 08/30/24 22:00 08/31/24 11:20 5 MG Pantoprazole Sodium 40 mg DAILY PO 08/31/24 10:00 08/31/24 11:22 40 MG Sacubitril/ Valsartan 1 tab BID PO 08/30/24 22:00 08/31/24 11:21 1 TAB Cholecalciferol 2,000 unit DAILY PO 08/31/24 10:00 08/31/24 11:22 2,000 UNIT Patient Own Medication 10 mg DAILY PO 08/31/24 10:00 Potassium Chloride 20 meq DAILY PO 08/31/24 10:00 08/31/24 11:21 20 MEQ Pravastatin Sodium 10 mg HS PO 08/31/24 22:00 Patient Own Medication 1 tab DAILY PO 08/31/24 10:00 Albuterol 2.5 mg Q2HPRN PRN NEB 08/30/24 15:30 Midodrine 10 mg TID PO 08/30/24 22:00 08/31/24 13:48 10 MG Furosemide 20 mg DAILY IV 08/31/24 10:00 08/31/24 10:41 20 MG Acetaminophen/ Hydrocodone Bitart 1 tab Q4HPRN PRN PO 08/31/24 12:00 08/31/24 12:57 1 TAB Laboratory Results Laboratory Tests 08/31/24 08:45 Chemistry Test 08/31/24 08:45 Albumin 5.1 g/dL (3.2-4.8) H Calcium Level 10.7 mg/dL (8.7-10.4) H Total Protein 7.8 g/dL (5.7-8.2) Cardiac Markers Test 08/31/24 08:45 B-Type Natriuretic Peptide 1965.34 pg/mL (0-100) LFT Test 08/31/24 08:45 Alanine Aminotransferase (ALT) 19 U/L (7-40) Alkaline Phosphatase 159 U/L (46-116) H Aspartate Amino Transferase (AST) 21 U/L (13-40) Total Bilirubin 3.3 mg/dL (0.2-1.0) H HgA1c, TSH Test 08/31/24 08:45 Hemoglobin A1c 6.3 % A1C (<5.7) H Urinalysis Test 08/30/24 10:54 Urine Color Yellow (Yellow) Urine Clarity Clear (Clear) Urine pH 6.0 (5.0-9.0) Urine Specific Donovan 1.012 (1.001-1.035) Urine Protein 1+ (Negative) H Urine Ketones Negative (Negative) Urine Blood Negative /uL (Negative) Urine Nitrite Negative (Negative) Urine Bilirubin Negative (Negative) Urine Urobilinogen 6 mg/dL (Negative) Urine Leukocyte Esterase Negative /uL (Negative) Urine RBC None seen /hpf (0 - 3) Urine Microscopic WBC 3 /HPF (0-3) Urine Squamous Epithelial Cells None seen /hpf (<5) Urine Bacteria None seen /hpf (None Seen) Urine Hyaline Casts Many /lpf (0 - 2) Urine Glucose 1+ mg/dL (Normal) H Labs and/or images reviewed: Labs reviewed by me Assessment/Plan Assessment/Plan CHF exacerbation--patient complain of shortness of breath associated with chest pain now Patient with history of ICD M PTCA Hypokalemia RADHA Type 2 DM Hypertension Atrial fibrillation ICD Continue current management. Continuing sliding scale insulin. Continuing with hypertensive medication and amiodarone. The patient complained of acute chest pain so I am going to get a stat EKG. I reviewed the EKG and it showed frequent PVCs. I would get a stat troponin level . It is 161. I called and discussed with Dr. Lucia Anderson who is on-call and he stated that he will see the patient. I will give the patient aspirin 81 mg one tablet p.o. x1. This medical document was created using an electronic medical record system with [employer] direct computerized dictation system. Although this document has been carefully reviewed, there may still be some phonetic and typographical errors. These areas are purely typographical due to imperfections of the software programs, and do not reflect any compromise in the patient's medical care. Plan discussed with: Patient My Orders Orders - JACINTO SONG MD Procedure Category Date Status Time Electrocardigram EKG 08/31/24 Resulted 11:54 Hydrocodone-Acet PHA 08/31/24 In Process 5/325mg Tab ([place] 12:00 Troponin-I Hs LAB 2/9/25 In Process 19:54 Date of Service: Aug 31, 2024 Billing Provider: JACINTO SONG MD Common Visit Codes: [id number] INP/OBS CARE(HIGH) JACINTO SONG MD Aug 31, 2024 20:34
[2024-08-31] MEDS: PRAVASTATIN SODIUM 20 MG TAB PO SCH (23:03)
--- NOTE | 2024-08-31 23:19 | DVHPN2 ---
Progress Note - Dictate Date Seen: Aug 31, 2024 Medical Necessity Reason Pt with a Central, PICC or Fol: No Subjective Patient was seen and evaluated in follow up. No overnight events. Patient is complaining of chest pain. 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 Chest x-ray shows the heart is enlarged with multilead left cardiac device, [id number] pulmonary vascular congestion, similar. Telemetry reviewed. vital signs Vital Sign Date Time Temp Pulse Resp B/P (MAP) Pulse Ox O2 Delivery O2 Flow Rate FiO2 08/31/24 13:24 98.0 89 17 106/68 (81) 96 98.0 08/31/24 10:08 Room Air* 0 21 Total Intake and Output 08/30/24 08/30/24 08/31/24 15:00 23:00 07:00 Intake Total 0 ml Balance 0 ml medications Current Medications Medications Dose Ordered Sig/Brian Route Start Time Stop Time Status Last Admin Dose Admin Ondansetron HCl 4 mg Q4HP PRN IV 08/30/24 15:30 08/31/24 15:05 4 MG Acetaminophen 650 mg Q6HP PRN PO 08/30/24 15:30 Nitroglycerin 0.4 mg Q5MINP PRN SL 08/30/24 15:30 Morphine Sulfate 2 mg Q30M PRN IV 08/30/24 15:30 08/30/24 18:00 2 MG Diagnostic Test (Pha) 1 strip ACHS 08/30/24 17:00 08/31/24 11:48 1 STRIP Insulin Human Regular ACHS SC 08/30/24 17:00 Dextrose 50 ml UD PRN IV 08/30/24 15:30 Amiodarone HCl 200 mg Q12HR PO 08/30/24 22:00 08/31/24 11:19 200 MG Aspirin 81 mg DAILY PO 08/31/24 10:00 08/31/24 11:21 81 MG Carvedilol 3.125 mg BID PO 08/30/24 22:00 08/31/24 11:20 3.125 MG Digoxin 0.125 mg DAILY PO 08/31/24 10:00 08/31/24 11:22 0.125 MG Ivabradine 5 mg BID PO 08/30/24 22:00 08/31/24 11:20 5 MG Pantoprazole Sodium 40 mg DAILY PO 08/31/24 10:00 2/9/25 11:22 40 MG Sacubitril/ Valsartan 1 tab BID PO 08/30/24 22:00 08/31/24 11:21 1 TAB Cholecalciferol 2,000 unit DAILY PO 08/31/24 10:00 08/31/24 11:22 2,000 UNIT Patient Own Medication 10 mg DAILY PO 08/31/24 10:00 Potassium Chloride 20 meq DAILY PO 08/31/24 10:00 08/31/24 11:21 20 MEQ Pravastatin Sodium 10 mg HS PO 08/31/24 22:00 Patient Own Medication 1 tab DAILY PO 08/31/24 10:00 Albuterol 2.5 mg Q2HPRN PRN NEB 08/30/24 15:30 Midodrine 10 mg TID PO 08/30/24 22:00 08/31/24 13:48 10 MG Furosemide 20 mg DAILY IV 08/31/24 10:00 08/31/24 10:41 20 MG Acetaminophen/ Hydrocodone Bitart 1 tab Q4HPRN PRN PO 08/31/24 12:00 08/31/24 12:57 1 TAB objective GENERAL: Awake, alert, oriented. LUNGS: Clear. CARDIOVASCULAR: Heart sounds are good. ABDOMEN: Soft. laboratory and microbiology Laboratory Tests 08/31/24 08:45 Test 08/31/24 08:45 Range/Units Serum Glucose 99 74-106 mg/dL Problem List CHF exacerbation. Hypokalemia. RADHA likely due to medications. Type 2 DM. Hypertension. Atrial fibrillation. ICD. Assessment/Plan Continued all current supportive medical care. Echocardiogram. Amiodarone. Aspirin. Coreg. Diuretics with Lasix. Digoxin. Nitro SL. Morphine for pain management. Entresto. GI prophylactics. Additional plan as per the hospital course. Plan discussed with: Patient CHAITANYA CULP MD Aug 31, 2024 16:56
[2024-09-01] VITALS (10 sets, daily range): BP systolic 74–108; BP diastolic 43–72; PULSE 55–89; RESP 13–18; TEMP 97.7–98.4; O2SAT 95–100
[2024-09-01] MEDS: MELATONIN 5 MG TAB PO ONE (03:12)
[2024-09-01 07:23] LABS: Anion Gap 10 (5-15); Carbon Dioxide 25 mmol/L (20-31); Potassium 3.7 mmol/L (3.5-5.1)
[2024-09-01 07:24] LABS: Calcium 9.9 mg/dL (8.7-10.4)
[2024-09-01 07:29] LABS: BUN/Creatinine Ratio 17.3 (10.0-20.0); Glucose 91 mg/dL (74-106)
[2024-09-01 07:31] LABS: Blood Urea Nitrogen 30 mg/dL (9-23); Chloride 94 mmol/L (98-107); Sodium 129 mmol/L (136-145)
[2024-09-01] MEDS ORDERED: LIDOCAINE 2%HCL (LOCAL ANESTH.) INJ 10ml MDV ONE (10:24)
[2024-09-01] MEDS ORDERED: MIDAZOLAM HCL 2MG/2ML 2ml VIAL (1mg/ml) ONE (10:30)
[2024-09-01] MEDS ORDERED: fentaNYL CITRATE 100 MCG/2 ML VL ONE (10:31)
--- NOTE | 2024-09-01 11:23 | DVHPN2 ---
Subjective The patient is seen and examined at bedside. Complain of chest pain. The patient also said he had an ICD that the lead broke off and he is supposed to see his mink farmer next week to check on it. His mink farmer is Dr. Villeda. Reviewed: Care Plan, H&P, Labs, Medications, Previous Orders, Radiology Changes from previous H/P or p: No Changes Cardiovascular: Chest Pain Respiratory: Shortness of breath Objective Vitals Vital Signs Date Time Temp Pulse Resp B/P (MAP) Pulse Ox O2 Delivery O2 Flow Rate FiO2 09/01/24 10:31 102/65 09/01/24 10:30 89 09/01/24 09:00 98.2 17 95 98.2 08/31/24 20:07 Room Air 0.0 08/31/24 20:07 21 Intake/Output Intake and Output 09/01/24 06:59 Intake Total 1600 ml Balance 1600 ml Intake Oral 1600 ml # Voids 7 General Appearance: Alert, Oriented X3, Cooperative, No acute distress HEENT: Atraumatic, PERRLA, EOMI, Mucous membr. moist/pink Neck: Supple Lungs: Clear to auscultation, Normal air movement Cardiovascular: Regular rate, Normal S1, Normal S2, No murmurs, Gallops, Rubs Abdomen: Normal bowel sounds, Soft, No tenderness Neuro: Cranial nerves 3-12 NL Psych/Mental Status: Mental status NL Medications Current Medications Medications Dose Ordered Sig/Brian Route Start Time Stop Time Status Last Admin Dose Admin Ondansetron HCl 4 mg Q4HP PRN IV 08/30/24 15:30 08/31/24 15:05 4 MG Acetaminophen 650 mg Q6HP PRN PO 08/30/24 15:30 Nitroglycerin 0.4 mg Q5MINP PRN SL 08/30/24 15:30 Morphine Sulfate 2 mg Q30M PRN IV 08/30/24 15:30 08/30/24 18:00 2 MG Diagnostic Test (Pha) 1 strip ACHS 08/30/24 17:00 09/01/24 05:39 1 STRIP Insulin Human Regular ACHS SC 08/30/24 17:00 Dextrose 50 ml UD PRN IV 08/30/24 15:30 Amiodarone HCl 200 mg Q12HR PO 08/30/24 22:00 09/01/24 10:30 200 MG Aspirin 81 mg DAILY PO 08/31/24 10:00 09/01/24 10:30 81 MG Carvedilol 3.125 mg BID PO 08/30/24 22:00 09/01/24 10:30 3.125 MG Digoxin 0.125 mg DAILY PO 08/31/24 10:00 09/01/24 10:29 0.125 MG Ivabradine 5 mg BID PO 08/30/24 22:00 09/01/24 10:44 5 MG Pantoprazole Sodium 40 mg DAILY PO 08/31/24 10:00 09/01/24 10:28 40 MG Sacubitril/ Valsartan 1 tab BID PO 08/30/24 22:00 09/01/24 10:36 1 TAB Cholecalciferol 2,000 unit DAILY PO 08/31/24 10:00 09/01/24 10:29 2,000 UNIT Patient Own Medication 10 mg DAILY PO 08/31/24 10:00 Potassium Chloride 20 meq DAILY PO 08/31/24 10:00 09/01/24 10:38 20 MEQ Pravastatin Sodium 10 mg HS PO 08/31/24 22:00 08/31/24 23:03 10 MG Patient Own Medication 1 tab DAILY PO 08/31/24 10:00 Albuterol 2.5 mg Q2HPRN PRN NEB 08/30/24 15:30 Cancel Midodrine 10 mg TID PO 08/30/24 22:00 09/01/24 05:10 10 MG Furosemide 20 mg DAILY IV 08/31/24 10:00 09/01/24 10:31 20 MG Acetaminophen/ Hydrocodone Bitart 1 tab Q4HPRN PRN PO 08/31/24 12:00 08/31/24 12:57 1 TAB Laboratory Results Laboratory Tests 08/31/24 08:45 09/01/24 06:19 Chemistry Test 09/01/24 06:19 Calcium Level 9.9 mg/dL (8.7-10.4) Urinalysis Test 08/30/24 10:54 Urine Color Yellow (Yellow) Urine Clarity Clear (Clear) Urine pH 6.0 (5.0-9.0) Urine Specific [place] 1.012 (1.001-1.035) Urine Protein 1+ (Negative) H Urine Ketones Negative (Negative) Urine Blood Negative /uL (Negative) Urine Nitrite Negative (Negative) Urine Bilirubin Negative (Negative) Urine Urobilinogen 6 mg/dL (Negative) Urine Leukocyte Esterase Negative /uL (Negative) Urine RBC None seen /hpf (0 - 3) Urine Microscopic WBC 3 /HPF (0-3) Urine Squamous Epithelial Cells None seen /hpf (<5) Urine Bacteria None seen /hpf (None Seen) Urine Hyaline Casts Many /lpf (0 - 2) Urine Glucose 1+ mg/dL (Normal) H Labs and/or images reviewed: Labs reviewed by me Assessment/Plan Assessment/Plan CHF exacerbation--patient complain of shortness of breath associated with chest pain now Patient with history of ICD M PTCA Hypokalemia RADHA Type 2 DM Hypertension Atrial fibrillation ICD Continue current management. Continuing sliding scale insulin. Continuing with hypertensive medication and amiodarone. Continuing with aspirin. We will consult Dr. Villeda. We will ask for pacemaker interrogation, [employer] This medical document was created using an electronic medical record system with My[employer] computerized dictation system. Although this document has been carefully reviewed, there may still be some phonetic and typographical errors. These areas are purely typographical due to imperfections of the software programs, and do not reflect any compromise in the patient's medical care. Plan discussed with: Patient, Other (Rn) My Orders Orders - JACINTO SONG MD Procedure Category Date Status Time Electrocardigram EKG 08/31/24 Resulted 11:54 Hydrocodone-Acet PHA 08/31/24 In Process 5/325mg Tab ([place] 12:00 Date of Service: Sep 01, 2024 Billing Provider: JACINTO SONG MD Common Visit Codes: [id number] INP/OBS CARE(HIGH) JACINTO SONG MD Sep 01, 2024 11:23
--- NOTE | 2024-09-01 13:14 | ECG ---
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
--- NOTE | 2024-09-01 14:29 | DVHINCON2 ---
Date of service: Sep 01, 2024 History of Present Illness 64 yo M with end stage HF, ckd, hypotension admitted for ADHF> pt is admitted frequently. pt has refused hospice. Past Medical History refviewed Family History: FH: arthritis FH: cancer aunt, Onset:50's - 60 FH: diabetes mellitus G8 MOTHER, , Onset:Unknown FH: stroke G8 MOTHER, , Onset:Unknown FHx: heart disease Family history: Cardiovascular disease G8 MOTHER, , Onset:Unknown Family history: Hypertension G8 MOTHER, , Onset:Unknown Allergies: Coded Allergies: Shellfish Allergy (Unverified Allergy, Severe, 09/11/23) CRAB Uncoded Allergies: CRAB (Allergy, Severe, 08/06/17) Home Meds Active Scripts Potassium Chloride (Potassium Chloride ER) 10 Meq Tab, 20 MEQ PO DAILY for 30 Days, #60 TAB Prov:MEME JAIME MD 04/30/24 Bumetanide (Bumetanide) 2 Mg Tab, 1 TAB PO BID for 30 Days, #60 TAB 1 Refill Prov:MEME JAIME MD 04/30/24 Amiodarone HCl (Amiodarone HCl) 200 Mg Tab, 200 MG PO Q12HR for 30 Days, #60 TAB Prov:ESTEVAN BRAN RESIDENT 02/07/24 Acetaminophen (Acetaminophen) 325 Mg Tab, 325 MG PO Q4HP PRN for 10 Days, #50 TAB Prov:ESTEVAN BRAN RESIDENT 02/07/24 Reported Medications Pantoprazole Sodium Sesquihydr (Pantoprazole Sodium) 40 Mg Tab, 40 MG PO DAILY, TAB 05/12/24 Simvastatin (Simvastatin) 10 Mg Tab, 10 MG PO DAILY, MG 05/12/24 Midodrine HCl (Midodrine Hydrochloride) 5 Mg Tab, 2 TAB PO TID, TAB 05/10/24 Cholecalciferol (VITAMIN D3) 2,000 Unit Tab, 1 TAB PO DAILY 01/09/24 Digoxin (Digoxin) 125 Mcg Tab, 1 TAB PO DAILY 01/09/24 Vericiguat (Verquvo) 10 Mg Tab, 1 TAB PO DAILY 01/09/24 Ivabradine Hydrochloride (Corlanor) 5 Mg Tab, 1 TAB PO BID 08/16/23 Spironolactone (Spironolactone) 25 Mg Tab, 1 TAB PO BID 05/15/23 Sacubitril-Valsartan (Entresto 24-26 mg) 1 Tab Tab, 1 TAB PO BID, TAB 05/15/23 Nitroglycerin (NTROSTAT SUBLINGUAL) 0.4 Mg Sl, 0.4 MG SL PRN, TAB *MAY REPEAT EVERY 5 MINUTES X 3 TOTAL IF NO RELIEF, INITIATE ANALGESIC THERAPY. NOTIFY PHYSICIAN *Do not crush. 05/15/23 Dapagliflozin Propanediol (Farxiga) 10 Mg Tab, 10 MG PO DAILY, TAB 05/15/23 Carvedilol (Carvedilol) 3.125 Mg Tab, 3.125 MG PO BID, MG 05/15/23 Aspirin (Aspir-Low) 81 Mg Tab, 81 MG PO DAILY, MG 05/15/23 Current Medications Current Medications Medications (Trade) Dose Ordered Sig/Brian Route PRN Reason Start Time Stop Time Status Last Admin Pravastatin Sodium (Pravachol Tablet) 10 mg HS PO 08/31/24 22:00 08/31/24 23:03 Review of Systems 10 pt ros otherwise negative Vital Signs Vital Signs Date Time Temp Pulse Resp B/P (MAP) Pulse Ox O2 Delivery O2 Flow Rate FiO2 09/01/24 13:28 98.3 56 17 106/71 (83) 98 98.3 09/01/24 12:36 Room Air* 0 21 Physical Exam nad s1 s2 rrr diffuse rhonchi abd disteneded Labs/Diagnostic Data Labs Test 09/01/24 11:26 09/01/24 06:19 08/31/24 19:57 08/31/24 08:45 Range/Units POC Glucose 124 H 70-106 mg/dl Sodium Level 129 L 136-145 mmol/L Potassium Level 3.7 3.5-5.1 mmol/L Chloride Level 94 L 98-107 mmol/L Carbon Dioxide Level 25 20-31 mmol/L Anion Gap 10 5-15 Blood Urea Nitrogen 30 #H 9-23 mg/dL Creatinine 1.73 H 0.700-1.30 mg/dL Glomerular Filtration Rate Calc 44 >90 mL/min BUN/Creatinine Ratio 17.3 10.0-20.0 Serum Glucose 91 74-106 mg/dL Calcium Level 9.9 8.7-10.4 mg/dL Digoxin Level < 0.14 L 0.8-2 ng/mL Troponin I High Sensitivity 136 *H </=54 ng/L White Blood Count 5.7 4.4-10.8 10^3/uL Red Blood Count 4.79 4.5-5.90 10^6/uL Hemoglobin 14.6 13.5-17.5 g/dL Hematocrit 43.5 41.0-53.0 % Mean Corpuscular Volume 90.8 80.0-100.0 fL Mean Corpuscular Hemoglobin 30.6 28.0-32.0 pg Mean Corpuscular Hemoglobin Concent 33.7 32.0-36.0 g/dL Red Cell Distribution Width 21.8 H 11.8-14.3 % Platelet Count 232 140-450 10^3/uL Mean Platelet Volume 7.5 6.9-10.8 fL Neutrophils (%) (Auto) 59.3 37.0-80.0 % Lymphocytes (%) (Auto) 17.3 10.0-50.0 % Monocytes (%) (Auto) 15.4 H 0.0-12.0 % Eosinophils (%) (Auto) 6.7 0.0-7.0 % Basophils (%) (Auto) 1.3 0.0-2.0 % Neutrophils # (Auto) 3.4 1.6-8.6 10 ^3/uL Lymphocytes # (Auto) 1.0 0.4-5.4 10 ^3/uL Monocytes # (Auto) 0.9 0-1.3 10 ^3/uL Eosinophils # (Auto) 0.4 0-0.8 10 ^3/uL Basophils # (Auto) 0.1 0-0.2 10 ^3/uL Nucleated Red Blood Cells 0.2 % Hemoglobin A1c 6.3 H <5.7 % A1C Total Bilirubin 3.3 H 0.2-1.0 mg/dL Aspartate Amino Transferase (AST) 21 13-40 U/L Alanine Aminotransferase (ALT) 19 7-40 U/L Alkaline Phosphatase 159 H 46-116 U/L B-Type Natriuretic Peptide 1965.34 0-100 pg/mL Total Protein 7.8 5.7-8.2 g/dL Albumin 5.1 H 3.2-4.8 g/dL Test 08/30/24 10:54 08/30/24 10:06 Range/Units Urine Color Yellow Yellow Urine Clarity Clear Clear Urine pH 6.0 5.0-9.0 Urine Specific [place] 1.012 1.001-1.035 Urine Protein 1+ H Negative Urine Ketones Negative Negative Urine Blood Negative Negative /uL Urine Nitrite Negative Negative Urine Bilirubin Negative Negative Urine Urobilinogen 6 Negative mg/dL Urine Leukocyte Esterase Negative Negative /uL Urine RBC None seen 0 - 3 /hpf Urine Microscopic WBC 3 0-3 /HPF Urine Squamous Epithelial Cells None seen <5 /hpf Urine Bacteria None seen None Seen /hpf Urine Hyaline Casts Many 0 - 2 /lpf Urine Glucose 1+ H Normal mg/dL Magnesium Level 2.0 1.6-2.6 mg/dL Assessment acute on chronic NYHA class IV HF ckd Hypotension LV lead fx RADHA nstemi Plan/Recommendation cont iv bumex pt is end stage HF and turned down for advanced therapies hes refused hospice several times at [facility] unsure if he is homeless as he is admitted every week no further options for pt as he is aaware cont iv bumex supportive care pressors as needed grim prognosis Plan discussed with: Patient JASKARAN NG MD Sep 01, 2024 14:29
[2024-09-01 20:41] LABS: Opiate Scree,Urine Pos (NEGATIVE)
[2024-09-01 20:52] LABS: Amphetamine Screen, Urine Neg (NEGATIVE); Barbiturate Scree,Urine Neg (NEGATIVE); Benzodiazephine Screen, Urine Neg (NEGATIVE); Cannabinoid Screen, Urine Pos (NEGATIVE); Cocaine Screen, Urine Neg (NEGATIVE); Phencyclidine Screen, Urine Neg (NEGATIVE)
[2024-09-02 01:00] VITALS: BP 84/50; PULSE 57; RESP 14; TEMP 98.2; O2SAT 100
[2024-09-02 05:00] VITALS: BP 125/106; PULSE 64; RESP 14; TEMP 97.5; O2SAT 96
[2024-09-02 08:00] VITALS: PULSE 62
[2024-09-02 09:00] VITALS: BP 95/55; PULSE 63; RESP 20; TEMP 97.7; O2SAT 94
--- NOTE | 2024-09-02 09:20 | CONS ---
Pharmacy Clinical Information: From Heart Failure Fallout Report from [facility] Application, Slava Julio is a 64 year old male with PMH of HTN, HLD, DM, Afib, angina, CAD, CHF (LVEF 5%), ICD, and PE. His home medications for heart failure include dapagliflozin, carvedilol, sacubitril/valsartan, spironolactone, ivabradine, vericiguat, and bumetanide. His inpatient medications include dapagliflozin, carvedilol, sacubitril/valsartan, ivabradine, vericiguat, and furosemide. MRA not recommended at this time due to episodes of hypotension. MENDOZA IBARRA PHARMACIST Sep 02, 2024 09:20
[2024-09-02 12:29] VITALS: BP 89/47; PULSE 64; RESP 20; TEMP 97.2; O2SAT 96
--- NOTE | 2024-09-02 13:17 | DVHDS2 ---
Discharge Summary Date of Admission Aug 30, 2024 at 15:17 Date of Discharge: Sep 02, 2024 Labs/Diagnostic Data: Laboratory Results Test 09/02/24 11:31 09/01/24 19:09 09/01/24 06:19 08/31/24 19:57 POC Glucose 109 mg/dl (70-106) Urine Opiates Screen Pos (NEGATIVE) Urine Fentanyl Screen Neg (NEGATIVE) Urine Barbiturates Screen Neg (NEGATIVE) Urine Phencyclidine Screen Neg (NEGATIVE) Urine Amphetamines Screen Neg (NEGATIVE) Urine Benzodiazepines Screen Neg (NEGATIVE) Urine Cocaine Screen Neg (NEGATIVE) Urine Cannabinoids Screen Pos (NEGATIVE) Sodium Level 129 mmol/L (136-145) Potassium Level 3.7 mmol/L (3.5-5.1) Chloride Level 94 mmol/L (98-107) Carbon Dioxide Level 25 mmol/L (20-31) Anion Gap 10 (5-15) Blood Urea Nitrogen 30 mg/dL (9-23) Creatinine 1.73 mg/dL (0.700-1.30) Glomerular Filtration Rate Calc 44 mL/min (>90) BUN/Creatinine Ratio 17.3 (10.0-20.0) Serum Glucose 91 mg/dL (74-106) Calcium Level 9.9 mg/dL (8.7-10.4) Digoxin Level < 0.14 ng/mL (0.8-2) Troponin I High Sensitivity 136 ng/L (</=54) Test 08/31/24 08:45 08/30/24 10:54 08/30/24 10:06 White Blood Count 5.7 10^3/uL (4.4-10.8) Red Blood Count 4.79 10^6/uL (4.5-5.90) Hemoglobin 14.6 g/dL (13.5-17.5) Hematocrit 43.5 % (41.0-53.0) Mean Corpuscular Volume 90.8 fL (80.0-100.0) Mean Corpuscular Hemoglobin 30.6 pg (28.0-32.0) Mean Corpuscular Hemoglobin Concent 33.7 g/dL (32.0-36.0) Red Cell Distribution Width 21.8 % (11.8-14.3) Platelet Count 232 10^3/uL (140-450) Mean Platelet Volume 7.5 fL (6.9-10.8) Neutrophils (%) (Auto) 59.3 % (37.0-80.0) Lymphocytes (%) (Auto) 17.3 % (10.0-50.0) Monocytes (%) (Auto) 15.4 % (0.0-12.0) Eosinophils (%) (Auto) 6.7 % (0.0-7.0) Basophils (%) (Auto) 1.3 % (0.0-2.0) Neutrophils # (Auto) 3.4 10 ^3/uL (1.6-8.6) Lymphocytes # (Auto) 1.0 10 ^3/uL (0.4-5.4) Monocytes # (Auto) 0.9 10 ^3/uL (0-1.3) Eosinophils # (Auto) 0.4 10 ^3/uL (0-0.8) Basophils # (Auto) 0.1 10 ^3/uL (0-0.2) Nucleated Red Blood Cells 0.2 % Hemoglobin A1c 6.3 % A1C (<5.7) Total Bilirubin 3.3 mg/dL (0.2-1.0) Aspartate Amino Transferase (AST) 21 U/L (13-40) Alanine Aminotransferase (ALT) 19 U/L (7-40) Alkaline Phosphatase 159 U/L (46-116) B-Type Natriuretic Peptide 1965.34 pg/mL (0-100) Total Protein 7.8 g/dL (5.7-8.2) Albumin 5.1 g/dL (3.2-4.8) Urine Color Yellow (Yellow) Urine Clarity Clear (Clear) Urine pH 6.0 (5.0-9.0) Urine Specific [place] 1.012 (1.001-1.035) Urine Protein 1+ (Negative) Urine Ketones Negative (Negative) Urine Blood Negative /uL (Negative) Urine Nitrite Negative (Negative) Urine Bilirubin Negative (Negative) Urine Urobilinogen 6 mg/dL (Negative) Urine Leukocyte Esterase Negative /uL (Negative) Urine RBC None seen /hpf (0 - 3) Urine Microscopic WBC 3 /HPF (0-3) Urine Squamous Epithelial Cells None seen /hpf (<5) Urine Bacteria None seen /hpf (None Seen) Urine Hyaline Casts Many /lpf (0 - 2) Urine Glucose 1+ mg/dL (Normal) Magnesium Level 2.0 mg/dL (1.6-2.6) Other Laboratory Tests 09/01/24 06:19 08/31/24 08:45 Brief Hx & Hospital Course: This is a 64-year-old male with history of hypertension, hyperlipidemia, DM, AFib, angina, CAD, CHF, ICD and PE presents to ED with chief complaint of shortness of breath associated with chest tightness that started last night. Upon evaluation of patient respiratory distress noted but does report shortness of breaths and compliancy in taking his prescribed medications that includes Bumex and spirolactone. He denied recent injury or trauma to his chest. The patient is concerned about his symptoms and would like to be further evaluated and treated. The patient denies fever, chills, headache, dizziness, palpitation, nausea, vomiting, abdominal pain, diarrhea, constipation and other associated symptoms. The patient will be admitted under hospitalist care to the telemetry unit for continuous monitoring, plan has been discussed with the patient and primary RN. CHF exacerbation--patient complain of shortness of breath associated with chest pain now Patient with history of ICD M PTCA Hypokalemia RADHA Type 2 DM Hypertension Atrial fibrillation ICD cleared by cardio for discharge discharge to home Condition at Discharge: Good Final Diagnosis/Problems List see above Discharge Disposition: Home Discharge Instruct/Medications Diet: Cardiac 2g Na,low cholest Activity: No Restrictions, As Tolerated Discharge Statement: "Patient was advised to return to the ER or call 911 if any headaches, dizziness, shortness of breath, chest pain, abdominal pain, bleeding, fevers, or worsening of medical condition. Patient was counseled about treatment plan, medications, possible side effects, patientverbalized understanding. All questions were answered to the best of my ability. This discharge took greater then 30 minutes in planning, reviewing documentation, counseling the patient, and discussing with other team members." ASSESSMENT ASSESSMENT Assessment Date of Service: Sep 02, 2024 Billing Provider: WENDI HE DO Common Visit Codes: [id number] DISCH DAY >30min WENDI HE DO Sep 02, 2024 13:17
[2024-09-02 15:08] VITALS: BP 95/45; PULSE 57; RESP 18
--- NOTE | 2024-09-02 20:37 | ECG ---
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
== END 2024-09-02 16:12 | disposition home or self-care (01) | DRG 194 ==
LOC: ER 09:36 → TELE 15:17 → TELE-EAST 18:54 → OVERFLOW 09-02 15:15 → EAST 09-02 15:24
PROVIDERS: ADMIT Internal Medicine; ATTEND Internal Medicine
DX: I13.0 Hypertensive heart and chronic kidney disease with heart failure and stage 1 through stage 4 chronic kidney disease, or unspecified chronic kidney disease (principal); I21.A1 Myocardial infarction type 2; N17.9 Acute kidney failure, unspecified; I50.43 Acute on chronic combined systolic (congestive) and diastolic (congestive) heart failure; E11.22 Type 2 diabetes mellitus with diabetic chronic kidney disease; E87.6 Hypokalemia; I48.91 Unspecified atrial fibrillation; E78.5 Hyperlipidemia, unspecified; I49.3 Ventricular premature depolarization; E83.52 Hypercalcemia; I25.10 Atherosclerotic heart disease of native coronary artery without angina pectoris; Z87.891 Personal history of nicotine dependence; Z91.013 Allergy to seafood; Z95.810 Presence of automatic (implantable) cardiac defibrillator; Z83.3 Family history of diabetes mellitus; Z82.3 Family history of stroke; Z82.49 Family history of ischemic heart disease and other diseases of the circulatory system
CPT/HCPCS: 36415; 71045; 71046; 80048; 80053; 80162; 80307; 81001; 82962; 83036; 83735; 83880; 84132; 84484; 85025; 93005; G0378; J2003; J2250; J2405

== ENCOUNTER 2024-09-03 13:08 | Inpatient (IN) | payer MEDICAID ==
[~2024-09-03] VITALS: Ht 185.4 cm; Wt 85.5 kg
--- NOTE | 2024-09-03 13:46 | ED.PDOC ---
SOB-HPI HPI Comments 64Y M with PMHx CHF, HTN, HLD, DM, PE, PNA, and pacemaker presents to ED for chief complaint SOB x1day with chest pain, abd swelling, and decreased appetite. [facility], 09/[facility]/2024, with dx CHF exacerbation. Pt states he is currently taking Bumex and Spironolactone. No other symptoms reported. Chief Complaint: Shortness of Breath Time Seen by MD: 13:31 Primary Care Provider: GABRIELA Booker notes: Nurses Notes, Medications, Allergies Information Source: Patient Mode of Arrival: Ambulatory Severity: Mild Timing: Days Duration: Since onset Context: At Rest PE Risk Factors: None History of: CHF Modifying Factors: Nothing Associated Signs and Symptoms: Chest Pain, Other Quality: Other Radiation: No Radiation Location: Substernal Past Medical History PAST MEDICAL HISTORY: AFIB, Angina, CAD, CHF, DM, High Lipids, HTN, PE Surgical History: Pacemaker, PTCA Family History Family History: Reviewed,noncontributory to illness, Family hx of DM, Family hx of heart bhavik, Family hx of HTN Social History Smoker: Quit Greater Than 1 Year, Cigarettes Alcohol: Sober Drugs: Denies Drug Use Lives In: Home Constitutional: denies: chills, diaphoresis, fatigue, fever, malaise, sweats, weakness, others EENTM: denies: blurred vision, double vision, ear bleeding, ear discharge, ear drainage, ear pain, ear ringing, eye pain, eye redness, hearing loss, mouth pain, mouth swelling, nasal discharge, nose bleeding, nose congestion, nose pain, photophobia, tearing, throat pain, throat swelling, voice changes, others Respiratory: reports: shortness of breath; denies: cough, hemoptysis, orthopnea, SOB at rest, SOB with excertion, stridor, wheezing, others Cardiovascular: reports: chest pain; denies: dizzy spells, diaphoresis, Dyspnea on exertion, edema, irregular heart beat, left arm pain, lightheadedness, palp itations, PND, syncope, others Gastrointestinal: reports: abdomen distended, poor appetite; denies: abdominal pain, blood streaked bowels, constipated, diarrhea, dysphagia, difficulty swallowing, hematemesis, melena, nausea, poor fluid intake, rectal bleeding, rectal pain, vomiting, others Genitourinary: denies: burning, dysuria, flank pain, frequency, hematuria, incontinence, penile discharge, penile sore, pain, testicle pain, testicle swelling, urgency, others Neurological: denies: dizziness, fainting, headache, left sided numbness, left sided weakness, numbness, paresthesia, pre-existing deficit, right sided numbness, right sided weakness, seizure, speech problems, tingling, tremors, weakness, others Musculoskeletal: denies: back pain, gout, joint pain, joint swelling, muscle pain, muscle stiffness, neck pain, others Integumetry: denies: bruises, change in color, change in hair/nails, dryness, laceration, lesions, lumps, rash, wounds, others Allergic/Immunocompromised: denies: Difficulty Healing, Frequent Infections, Hives, Itching, others Hematologic/Lymphatic: denies: anemia, blood clots, easy bleeding, easy bruising, swollen glands, others Endocrine: denies: excessive hunger, excessive sweating, excessive thirst, excessive urination, flushing, intolerance to cold, intolerance to heat, unexpl ained weight gain, unexplained weight loss, others Psychiatric: denies: anxiety, bipolar disorder, depression, hopeless, panic disorder, schizophrenia, sleepless, suicidal, others All Other Systems: Reviewed and Negative Physical Exam General Appearance: No Apparent Distress, Normal HEENT: Normal ENT Inspection, Pharynx Normal, TMs Normal Neck: Full Range of Motion, Non-Tender, Normal, Normal Inspection Respiratory: Chest Non-Tender, Lungs Clear, No Accessory Muscle Use, No Respiratory Distress, Normal Breath Sounds Cardiovascular: No Edema, No JVD, No Murmur, No Gallop, Normal Peripheral Pulses, Regular Rate/Rhythm Breast Exam: Deferred Gastrointestinal: No Organomegaly, Non Tender, No Pulsatile Mass, Normal Bowel Sounds, Soft Genitalia: Deferred Pelvic: Deferred Rectal: Deferred Extremities: No calf tenderness, Normal capillary refill, Normal inspection, Normal range of motion, Non-tender, No pedal edema Musculoskeletal : Apperance: Normal Neurologic: Alert, automation and controls supervisor II-XII nml as Tested, No Motor Deficits, Normal Affect, Normal Mood, No Sensory Deficits Cerebellar Function: NOT DONE Reflexes: NOT DONE Skin: Dry, Normal Color, Warm Lymphatic: No Adenopathy Was a procedure done? Was a procedure done?: No Differential Dx Differential Diagnosis: CHF X-Ray, Labs, Meds, VS Vital Signs Date Time Temp Pulse Resp B/P (MAP) Pulse Ox O2 Delivery O2 Flow Rate FiO2 09/03/24 14:57 97.6 72 16 94/58 (70) 99 97.6 09/03/24 14:57 72 16 99 Room Air* 0 21 09/03/24 13:27 74 09/03/24 13:08 98.2 72 14 91/52 (65) 98 Lab Test 09/03/24 14:48 09/03/24 13:54 Range/Units Troponin I High Sensitivity 54 53 </=54 ng/L White Blood Count 5.6 4.4-10.8 10^3/uL Red Blood Count 4.57 4.5-5.90 10^6/uL Hemoglobin 13.7 13.5-17.5 g/dL Hematocrit 41.6 41.0-53.0 % Mean Corpuscular Volume 91.0 80.0-100.0 fL Mean Corpuscular Hemoglobin 29.9 28.0-32.0 pg Mean Corpuscular Hemoglobin Concent 32.9 32.0-36.0 g/dL Red Cell Distribution Width 22.3 H 11.8-14.3 % Platelet Count 219 140-450 10^3/uL Mean Platelet Volume 7.9 6.9-10.8 fL Neutrophils (%) (Auto) 70.4 37.0-80.0 % Lymphocytes (%) (Auto) 10.9 10.0-50.0 % Monocytes (%) (Auto) 16.4 H 0.0-12.0 % Eosinophils (%) (Auto) 1.2 0.0-7.0 % Basophils (%) (Auto) 1.1 0.0-2.0 % Neutrophils # (Auto) 4.0 1.6-8.6 10 ^3/uL Lymphocytes # (Auto) 0.6 0.4-5.4 10 ^3/uL Monocytes # (Auto) 0.9 0-1.3 10 ^3/uL Eosinophils # (Auto) 0.1 0-0.8 10 ^3/uL Basophils # (Auto) 0.1 0-0.2 10 ^3/uL Nucleated Red Blood Cells 0.3 % Sodium Level 134 #L 136-145 mmol/L Potassium Level 4.5 3.5-5.1 mmol/L Chloride Level 96 L 98-107 mmol/L Carbon Dioxide Level 28 20-31 mmol/L Anion Gap 10 5-15 Blood Urea Nitrogen 39 H 9-23 mg/dL Creatinine 1.68 H 0.700-1.30 mg/dL Glomerular Filtration Rate Calc 46 >90 mL/min BUN/Creatinine Ratio 23.2 H 10.0-20.0 Serum Glucose 78 74-106 mg/dL Calcium Level 10.1 8.7-10.4 mg/dL B-Type Natriuretic Peptide 3052.56 0-100 pg/mL [facility] [address] [id number] Ph: [phone] DIAGNOSTIC IMAGING Diagnostic Imaging Report : [id number] Signed PATIENT: SUHAIL VILLALTA ACCT: [id number] UNIT: [id number] : 1960 LOC: ER ROOM / BED: / AGE / SEX: 64 / M ADM STATUS: REG ER SERVICE 1335 ORDERING PHYSICIAN: JACKIE LAL MD PROCEDURE(s): CXRP - CHEST PORTABLE REASON: sob ORDER NUMBER(s): [id number], ACCESSION NUMBER(s): [id number] Procedure: XY CHEST PORTABLE 09/03/2024 01:35 PM Indication: sob Comparison: XY CHEST PORTABLE on DOS: 08/31/24, XY CHEST PORTABLE on DOS: 05/09/24, XY CHEST PORTABLE on DOS: 04/25/24 TECHNIQUE: XY CHEST PORTABLE FINDINGS: Medical devices: A multilead pacemaker/AICD is seen in the chest wall with leads extending to the cardiac chambers. Cardiomediastinal: The heart is moderately enlarged. Pulmonary vasculature is prominent. Atherosclerotic calcification of the aortic arch noted. Lungs: No focal pulmonary opacity is seen. The costophrenic angles are clear. No pneumothorax. Bones/soft tissues: No acute abnormality is noted. IMPRESSION: 1. Moderate cardiomegaly and pulmonary venous congestion. ATED BY: ESE MCGARRY MD DICTATED DATE/TIME: 09/03/24 1430 SIGNED BY: ESE MCGARRY MD SIGNED DATE/TIME: 09/03/24 1430 CC: Time of 1ST Reevaluation: 14:01 Reevaluation 1ST: Unchanged Patient Education/Counseling: Diagnosis, Treatment Family Education/Counseling: No Family Present Departure 1 Departure Time of Disposition: 16:13 (Patient with a worsening CHF exacerbation. We will give patient Lasix and admit patient for further workup.) Impression: Primary Impression: Acute on chronic systolic (congestive) heart failure Additional Impression: SOB (shortness of breath) Disposition: 09 ADMITTED INPATIENT Admit to: [facility] Condition: Guarded Critical Care Note Critical Care Time?: Yes Critical care comment: Shortness of breath Authorized and Performed by: Jackie Lal MD Total critical care time: Approximately 39 minutes Due to a high probability of clinically significant, life threatening deterioration, the patient required my highest level of preparedness to intervene emergently and I personally spent this critical care time directly and personally managing the patient. This critical care time included obtaining a history; examining the patient; pulse oximetry; ordering and review of studies; arranging urgent treatment with development of a management plan; evaluation of patient's response to treatment; frequent reassessment; and, discussions with other providers. This critical care time was performed to assess and manage the high probability of imminent, life-threatening deterioration that could result in multi-organ failure. It was exclusive of separately billable procedures and treating other patients and teaching time. Please see my other sections and the rest of the note for further information on patient assessment and treatment. Stability Stability form required: No Heart Score Heart Score: Heart Score Response (Comments) Value History N/A 0 EKG N/A 0 Age N/A 0 Risk Factors N/A 0 Troponin N/A 0 Total 0 I personally scribed for JACKIE LAL MD (NotesFirst) on 09/03/24 at 13:46. Electronically submitted by Kathleen Robbins ([employer]). I personally scribed for JACKIE LAL MD (EMELIA) on 09/03/24 at 14:38. Electronically submitted by Kathleen Robbins ([employer]). JACKIE LAL MD Sep 03, 2024 13:46
[2024-09-03 14:19] LABS: Potassium 4.5 mmol/L (3.5-5.1)
[2024-09-03 14:20] LABS: Anion Gap 10 (5-15); Calcium 10.1 mg/dL (8.7-10.4); Carbon Dioxide 28 mmol/L (20-31)
[2024-09-03 14:22] LABS: Basophils # (auto) 0.1 10 ^3/uL (0-0.2); Basophils % (auto) 1.1 % (0.0-2.0); Eosinophils # (auto) 0.1 10 ^3/uL (0-0.8); Eosinophils % (auto) 1.2 % (0.0-7.0); Hematocrit 41.6 % (41.0-53.0); Hemoglobin 13.7 g/dL (13.5-17.5); Lymphocytes # (auto) 0.6 10 ^3/uL (0.4-5.4); Lymphocytes % (auto) 10.9 % (10.0-50.0); Mean Corpuscular Hemoglobin 29.9 pg (28.0-32.0); Mean Corpuscular Hgb Conc. 32.9 g/dL (32.0-36.0); Monocytes # (auto) 0.9 10 ^3/uL (0-1.3); Monocytes % (auto) 16.4 % (0.0-12.0); Neutrophils % (auto) 70.4 % (37.0-80.0); Nucleated Red Blood Cells % 0.3 %; Platelet Count (auto) 219 10^3/uL (140-450); Red Blood Cells 4.57 10^6/uL (4.5-5.90); Red Cell Distribution Width 22.3 % (11.8-14.3); White Blood Cell 5.6 10^3/uL (4.4-10.8)
[2024-09-03 14:25] LABS: BUN/Creatinine Ratio 23.2 (10.0-20.0); Glucose 78 mg/dL (74-106)
[2024-09-03 14:26] LABS: Blood Urea Nitrogen 39 mg/dL (9-23); Chloride 96 mmol/L (98-107); Sodium 134 mmol/L (136-145)
--- NOTE | 2024-09-03 14:32 | DVH ---
Procedure: XY CHEST PORTABLE 09/03/2024 01:35 PM Indication: sob Comparison: XY CHEST PORTABLE on DOS: 08/31/24, XY CHEST PORTABLE on DOS: 05/09/24, XY CHEST PORTABLE o n DOS: 04/25/24 TECHNIQUE: XY CHEST PORTABLE FINDINGS: Medical devices: A multilead pacemaker/AICD is seen in the chest wall with leads extending to the car diac chambers. Cardiomediastinal: The heart is moderately enlarged. Pulmonary vasculature is prominent. Atherosclero tic calcification of the aortic arch noted. Lungs: No focal pulmonary opacity is seen. The costophrenic angles are clear. No pneumothorax. Bones/soft tissues: No acute abnormality is noted. IMPRESSION: 1. Moderate cardiomegaly and pulmonary venous congestion.
[2024-09-03 14:57] VITALS: PULSE 72; RESP 16; O2SAT 99
[2024-09-03] MEDS: FUROSEMIDE 40 MG/4 ML VIAL IV ONE (16:59)
[2024-09-03] MEDS ORDERED: DEXTROSE (50%) 50ML SYRG IV PRN (19:45)
[2024-09-03] MEDS ORDERED: ACETAMINOPHEN 325 MG TAB PO PRN (19:45)
[2024-09-03] MEDS ORDERED: ONDANSETRON HCL 4 MG/2 ML VIAL IV PRN (19:45)
[2024-09-03] MEDS: InsuLIN REG 1unit/0.01ml Soln (100units/ml) SC SCH (22:00)
[2024-09-03 23:40] VITALS: BP 101/73; PULSE 69; RESP 17; TEMP 97.9; O2SAT 100
[2024-09-04] VITALS (9 sets, daily range): BP systolic 81–141; BP diastolic 56–87; PULSE 60–75; RESP 16–20; TEMP 97.5–98.6; O2SAT 90–100
[2024-09-04] MEDS: ACCU-CHEK COMFORT CURVE STRIP VI SCH (00:12)
[2024-09-04] MEDS: CARVEDILOL 3.125 MG TAB PO SCH (00:12)
--- NOTE | 2024-09-04 00:25 | DVHHP2 ---
History of Present Illness Reason for Visit: Shortness for breath History of Present Illness 64-year-old male presents for evaluation of shortness for breath. Patient was discharged yesterday after being admitted and treated for CHF exacerbation. Today he returns with complaints of worsening shortness for breath with abdomina l distention and chest tightness. Denies cough or fever. No nausea or vomiting. No other acute complaints reported. Past Medical History CHF, CAD, angina, AFib, diabetes mellitus, hypertension, dyslipidemia Past Surgical History PTCA and pacemaker Family History Noncontributory Smoke: <1 pack per day ALCOHOL: none (Sober) Drugs: None Lives: with Family Review of Systems Review of Systems Review of systems are currently negative otherwise addressed in HPI. Allergies: Coded Allergies: Shellfish Allergy (Unverified Allergy, Severe, 09/11/23) CRAB Uncoded Allergies: CRAB (Allergy, Severe, 08/06/17) Medications Current Medications Medications Dose Ordered Sig/Brian Route Start Time Stop Time Status Last Admin Dose Admin Furosemide 20 mg BIDD IV 09/04/24 06:00 Amiodarone HCl 200 mg Q12HR PO 09/03/24 22:00 Carvedilol 3.125 mg Q12HR PO 09/03/24 22:00 Aspirin 81 mg DAILY PO 09/04/24 10:00 Digoxin 0.125 mg DAILY PO 09/04/24 10:00 Ivabradine 5 mg BID PO 09/03/24 22:00 Sacubitril/ Valsartan 1 tab BID PO 09/03/24 22:00 Atorvastatin Calcium 10 mg HS PO 09/03/24 22:00 Midodrine 10 mg TID@0600,1200,1800 PO 09/04/24 06:00 Diagnostic Test (Pha) 1 strip ACHS 09/03/24 22:00 09/04/24 00:12 1 STRIP Insulin Human Regular ACHS SC 09/03/24 22:00 Dextrose 50 ml UD PRN IV 09/03/24 19:45 Acetaminophen/ Hydrocodone Bitart 1 tab Q4HP PRN PO 09/03/24 19:45 Temazepam 15 mg QHSP PRN PO 09/03/24 19:45 Ondansetron HCl 4 mg Q4HP PRN IV 09/03/24 19:45 Enoxaparin Sodium 40 mg DAILY SC 09/04/24 10:00 Acetaminophen 650 mg Q6HP PRN PO 09/03/24 19:45 Exam Vital Signs Vital Signs Date Time Temp Pulse Resp B/P (MAP) Pulse Ox O2 Delivery O2 Flow Rate FiO2 09/03/24 23:40 97.9 69 17 101/73 (82) 100 97.9 09/03/24 20:34 Room Air 09/03/24 14:57 0 21 Exam Gen: 64-year-old male in no apparent distress Skin: Warm, dry, normal color and texture, no rash. HEENT: Normocephalic atraumatic, mucous membranes moist and pink. Neck: Cervical and supraclavicular nodes normal without enlargement, trachea is midline, thyroid gland is normal without masses. Pulmonary: Clear to auscultation and percussion bilaterally. Cardiac: Regular rate and rhythm. No murmur Abdomen: Soft, nontender, mild abdominal distention, bowel sounds present all 4 quadrants, no guarding, no rigidity, no organomegaly. Extremities: No cyanosis, clubbing, no edema Neuro: Cranial nerves II through XII grossly intact, normal affect and speech, no focal motor deficits. Labs/Xrays ORDERING PHYSICIAN: DAX NEWMAN RESIDENT PROCEDURE(s): ECIDC - ECHO 2D MODE CARDIAC DOP REASON: CP, SUSPECTED PERICSRDISL EFFUSION , CHF ORDER NUMBER(s): [id number], ACCESSION NUMBER(s): [id number] APPROVED REPORT EXAM: Two-dimensional and M-mode echocardiogram with Doppler and color Doppler. Blood Pressure: 106/77 mmHg INDICATION CP SUSPECTED PERICARDIAL EFFUSION RISK FACTORS Height: 6', Weight: 213 DIMENSIONS LVDd 7.5 (3.8-5.7cm) LA (2D) 5.1 (1.9-4.0cm) Aortic Root 3.5 (2.0- 3.7cm) LVDs 7.2 (2.5-4.0cm) LA (MM) (1.9-4.0cm) Aortic Cusp Exc 1.7 (1.5- 2.0cm) EF (%) 8.0 (55-70%) Rt. Atrium 6.2 (1.9-4.0cm) Asc. Aorta cm IVSd 1.1 (0.7-1.1cm) RV (D) (1.8-2.4cm) PWd 1.0 (0.7-1.1cm) Mitral Valve Mitral Mitral Stenosis E wave 0.80m/s MV Mean GR. mmHg A wave 0.30m/s MV Peak GR. mmHg E/A ratio 2.7 2D MVA cm2 Aortic Valve Aortic Valve Aortic Stenosis V1 0.50m/s AO Mean GR. 3mmHg V2 1.00m/s AO Peak GR. 4mmHg LVOT Diameter 2.0 (1.8-2.4cm) Doppler SYEDA 1.57cm2 Pulmonic Valve V2 0.30m/s Tricuspid Valve TR Velocity 3.00m/s RVSP 42mmHg Conclusion lvef 5% by visual estimate severe RV dysfunction and RV marked enlargement RV pacing lead present biatrial enlargement significant mitral regurg and tricuspid regurg no severe pericardial effusion notd SIGNED BY: JASKARAN NG MD ORDERING PHYSICIAN: JACKIE LAL MD PROCEDURE(s): CXRP - CHEST PORTABLE REASON: sob ORDER NUMBER(s): [id number], ACCESSION NUMBER(s): [id number] Procedure: XY CHEST PORTABLE 09/03/2024 01:35 PM Indication: sob Comparison: XY CHEST PORTABLE on DOS: 08/31/24, XY CHEST PORTABLE on DOS: 05/09/24, XY CHEST PORTABLE on DOS: 04/25/24 TECHNIQUE: XY CHEST PORTABLE FINDINGS: Medical devices: A multilead pacemaker/AICD is seen in the chest wall with leads extending to the cardiac chambers. Cardiomediastinal: The heart is moderately enlarged. Pulmonary vasculature is prominent. Atherosclerotic calcification of the aortic arch noted. Lungs: No focal pulmonary opacity is seen. The costophrenic angles are clear. No pneumothorax. Bones/soft tissues: No acute abnormality is noted. IMPRESSION: 1. Moderate cardiomegaly and pulmonary venous congestion. Labs Test 09/03/24 16:56 09/03/24 13:54 Range/Units Troponin I High Sensitivity 54 </=54 ng/L White Blood Count 5.6 4.4-10.8 10^3/uL Red Blood Count 4.57 4.5-5.90 10^6/uL Hemoglobin 13.7 13.5-17.5 g/dL Hematocrit 41.6 41.0-53.0 % Mean Corpuscular Volume 91.0 80.0-100.0 fL Mean Corpuscular Hemoglobin 29.9 28.0-32.0 pg Mean Corpuscular Hemoglobin Concent 32.9 32.0-36.0 g/dL Red Cell Distribution Width 22.3 H 11.8-14.3 % Platelet Count 219 140-450 10^3/uL Mean Platelet Volume 7.9 6.9-10.8 fL Neutrophils (%) (Auto) 70.4 37.0-80.0 % Lymphocytes (%) (Auto) 10.9 10.0-50.0 % Monocytes (%) (Auto) 16.4 H 0.0-12.0 % Eosinophils (%) (Auto) 1.2 0.0-7.0 % Basophils (%) (Auto) 1.1 0.0-2.0 % Neutrophils # (Auto) 4.0 1.6-8.6 10 ^3/uL Lymphocytes # (Auto) 0.6 0.4-5.4 10 ^3/uL Monocytes # (Auto) 0.9 0-1.3 10 ^3/uL Eosinophils # (Auto) 0.1 0-0.8 10 ^3/uL Basophils # (Auto) 0.1 0-0.2 10 ^3/uL Nucleated Red Blood Cells 0.3 % Sodium Level 134 #L 136-145 mmol/L Potassium Level 4.5 3.5-5.1 mmol/L Chloride Level 96 L 98-107 mmol/L Carbon Dioxide Level 28 20-31 mmol/L Anion Gap 10 5-15 Blood Urea Nitrogen 39 H 9-23 mg/dL Creatinine 1.68 H 0.700-1.30 mg/dL Glomerular Filtration Rate Calc 46 >90 mL/min BUN/Creatinine Ratio 23.2 H 10.0-20.0 Serum Glucose 78 74-106 mg/dL Calcium Level 10.1 8.7-10.4 mg/dL B-Type Natriuretic Peptide 3052.56 0-100 pg/mL Assessment/Plan Assessment/Plan Assessment Acute on chronic congestive heart failure Diabetes mellitus Chronic kidney disease Hypertension Atrial fibrillation Status post pacemaker Plan Admit the patient to surge to the hospitalist Resume home medications IV Lasix Continue treatment per orders. Plan discussed with: Patient My Orders Orders - REINA ARRINGTON Procedure Category Date Status Time Furosemide Injection PHA 09/04/24 In Process (Lasix Injection) 06:00 Amiodarone Tablet PHA 09/03/24 In Process (Cordarone Tablet) 22:00 Carvedilol Tablet PHA 09/03/24 In Process (Coreg Tablet) 22:00 Aspirin Tablet PHA 09/04/24 In Process 10:00 Digoxin Tablet PHA 09/04/24 In Process (Lanoxin Tablet) 10:00 Ivabradine (Corlanor) PHA 09/03/24 In Process 22:00 Sacubitril-Valsartan PHA 09/03/24 In Process (Entresto 24-26 Mg 22:00 Atorvastatin (Lipitor) PHA 09/03/24 In Process 22:00 Midodrine Tablet PHA 09/04/24 In Process (Proamatine Tablet) 06:00 Glucose Blood PHA 09/03/24 In Process (Accu-Chek Comfort 22:00 Insulin R (Human) PHA 09/03/24 In Process (Insulin R) 22:00 Dextrose 50% Syringe PHA 09/03/24 In Process 19:45 Admit ADMIT 09/03/24 Transmitted 19:37 Hydrocodone-Acet PHA 09/03/24 In Process 5/325mg Tab ([place] 19:45 Temazepam (Restoril) PHA 09/03/24 In Process 19:45 Ondansetron Hcl PHA 09/03/24 In Process (Zofran) 19:45 Cardiac DIET 09/04/24 Transmitted Diet-2gna,Lofat,Lochol Breakfast Condition: Stable JIMMIE 09/03/24 In Process 19:37 Acetaminophen Tablet PHA 09/03/24 In Process (Tylenol Tablet) 19:45 Bedrest With Bathroom JIMMIE 09/03/24 In Process Privileg 19:37 Basic Metabolic Panel LAB 09/04/24 Logged 04:00 Enoxaparin Sodium PHA 09/04/24 In Process (Lovenox) 10:00 Date of Service: Sep 03, 2024 Billing Provider: REINA ARRINGTON Common Visit Codes: [id number] INP/OBS CARE (HIGH) REINA ARRINGTON Sep 04, 2024 00:25
[2024-09-04] MEDS ORDERED: ASPI-325 (00:27)
[2024-09-04] MEDS ORDERED: MEXI150C15 (00:27)
[2024-09-04] MEDS ORDERED: MORPHINE SULFATE INJ 2 MG/ml SYRG IV PRN (00:45)
[2024-09-04] MEDS ORDERED: NITROGLYCERIN 0.4 MG SL TAB SL PRN ×2 (00:45)
[2024-09-04] MEDS: ATORVASTATIN 20 MG TAB PO SCH (00:56)
[2024-09-04] MEDS: MORPHINE SULFATE INJ 2 MG/ml SYRG IV PRN (01:30)
[2024-09-04] MEDS: MIDODRINE HCL 10 MG TAB PO SCH (06:06)
[2024-09-04] MEDS: FUROSEMIDE 20 MG/2 ML VIAL IV SCH (06:06)
[2024-09-04 06:37] LABS: Potassium 3.9 mmol/L (3.5-5.1)
[2024-09-04 06:38] LABS: Anion Gap 8 (5-15); Calcium 9.9 mg/dL (8.7-10.4); Carbon Dioxide 29 mmol/L (20-31)
[2024-09-04 06:43] LABS: BUN/Creatinine Ratio 20.5 (10.0-20.0); Glucose 79 mg/dL (74-106)
[2024-09-04 06:44] LABS: Blood Urea Nitrogen 30 mg/dL (9-23); Chloride 97 mmol/L (98-107); Sodium 134 mmol/L (136-145)
[2024-09-04] MEDS: ASPirin 81 mg TAB PO SCH (09:50)
[2024-09-04] MEDS: SACUBITRIL-VALSARTAN 24mg/26mg TAB PO SCH (09:51)
[2024-09-04] MEDS: DIGOXIN 0.125 MG TAB PO SCH (09:51)
[2024-09-04] MEDS: ENOXAPARIN SOD 40 MG/0.4 ML SYRINGE SC SCH (09:52)
[2024-09-04] MEDS: AMIODARONE HCL 200 MG TAB PO SCH (09:52)
[2024-09-04] MEDS: IVABRADINE 5 MG TAB PO SCH (09:52)
--- NOTE | 2024-09-04 09:56 | ECG ---
[facility] Test Date: 2024-09-03 Test Time: 13:27:52 Pat Name: SUHAIL VILLALTA Department: ER Room: 0212T A Gender: M Emergency Medical Dispatcher: SAMANTHA : 1960 Requested By: JACKIE LAL Order Number: [id number] Reading MD: Adrián Mock Measurements Intervals [place] Rate: 74 P: 6 NV: 220 QRS: 236 QRSD: 152 T: 37 QT: 437 QTc: 485 Interpretive Statements Sinus rhythm Ventricular trigeminy Prolonged NV interval Nonspecific intraventricular conduction delay Anterior infarct, old Electronically Signed On 09-04-2024 12:00:22 PST by Adrián Mock Please click the below link to view image of tracing.
--- NOTE | 2024-09-04 11:37 | DVHPN2 ---
Reviewed: Care Plan, H&P, Labs, Medications, Previous Orders, Radiology Changes from previous H/P or p: No Changes Objective Vitals Vital Signs Date Time Temp Pulse Resp B/P (MAP) Pulse Ox O2 Delivery O2 Flow Rate FiO2 09/04/24 09:51 67 09/04/24 09:51 87/54 09/04/24 09:00 98.1 17 96 98.1 09/04/24 08:00 Room Air* 0 21 Intake/Output Intake and Output 09/04/24 07:00 Intake Total 150 ml Balance 150 ml Intake Oral 150 ml # Voids 3 Medications Current Medications Medications Dose Ordered Sig/Brian Route Start Time Stop Time Status Last Admin Dose Admin Furosemide 20 mg BIDD IV 09/04/24 06:00 09/04/24 06:06 20 MG Amiodarone HCl 200 mg Q12HR PO 09/03/24 22:00 Carvedilol 3.125 mg Q12HR PO 09/03/24 22:00 Aspirin 81 mg DAILY PO 09/04/24 10:00 09/04/24 09:50 81 MG Digoxin 0.125 mg DAILY PO 09/04/24 10:00 09/04/24 09:51 0.125 MG Ivabradine 5 mg BID PO 09/03/24 22:00 09/04/24 09:52 5 MG Sacubitril/ Valsartan 1 tab BID PO 09/03/24 22:00 Atorvastatin Calcium 10 mg HS PO 09/03/24 22:00 09/04/24 00:56 10 MG Midodrine 10 mg TID@0600,1200,1800 PO 09/04/24 06:00 09/04/24 06:06 10 MG Diagnostic Test (Pha) 1 strip ACHS 09/03/24 22:00 09/04/24 06:20 1 STRIP Insulin Human Regular ACHS SC 09/03/24 22:00 Dextrose 50 ml UD PRN IV 09/03/24 19:45 Acetaminophen/ Hydrocodone Bitart 1 tab Q4HP PRN PO 09/03/24 19:45 Temazepam 15 mg QHSP PRN PO 09/03/24 19:45 Ondansetron HCl 4 mg Q4HP PRN IV 09/03/24 19:45 Enoxaparin Sodium 40 mg DAILY SC 09/04/24 10:00 Acetaminophen 650 mg Q6HP PRN PO 09/03/24 19:45 Nitroglycerin 0.4 mg Q5MINP PRN SL 09/04/24 00:45 Morphine Sulfate 2 mg Q30M PRN IV 09/04/24 00:45 09/04/24 01:30 2 MG Laboratory Results Laboratory Tests 09/03/24 13:54 09/04/24 05:18 Chemistry Test 09/03/24 13:54 09/04/24 05:18 Calcium Level 10.1 mg/dL (8.7-10.4) 9.9 mg/dL (8.7-10.4) Cardiac Markers Test 09/03/24 13:54 B-Type Natriuretic Peptide 3052.56 pg/mL (0-100) Labs and/or images reviewed: Labs reviewed by me, Image(s) reviewed by me Assessment/Plan Assessment/Plan Acute hypoxic respiratory failure: Oxygen by nasal cannula Acute CHF exacerbation: Lasix, consult for patient's filling station attendant Dr. Villeda Patient with history of ICD M PTCA Hypokalemia Atrial fibrillation Chronic kidney disease RAHDA History of ME status post stents Type 2 DM Hypertension ICD Continue all home medications History of polysubstance abuse History of smoking Ordered D-dimer Leonor test flu test We will check UDs Plan discussed with: Patient Date of Service: Sep 04, 2024 Billing Provider: FIORELLA DEVINE MD Common Visit Codes: [id number] INP/OBS CARE(HIGH) FIORELLA DEVINE MD Sep 04, 2024 11:37
[2024-09-04 12:51] LABS: COVID19 ANTIGEN SOFIA FIA NEGATIVE (NEGATIVE); Rapid Influenza A Negative (Negative); Rapid Influenza B Negative (Negative)
[2024-09-04] MEDS: TEMAZEPAM 15 MG CAP PO PRN (21:31)
[2024-09-04] MEDS: HYDROcodone-ACET 5/325MG TAB PO PRN (21:32)
[2024-09-05] VITALS (12 sets, daily range): BP systolic 85–102; BP diastolic 54–73; PULSE 49–70; RESP 16–17; TEMP 96.5–98; O2SAT 89–100
--- NOTE | 2024-09-05 08:34 | DVHPN2 ---
Reviewed: Care Plan, H&P, Labs, Medications, Previous Orders, Radiology Changes from previous H/P or p: No Changes Objective Vitals Vital Signs Date Time Temp Pulse Resp B/P (MAP) Pulse Ox O2 Delivery O2 Flow Rate FiO2 09/05/24 06:59 96 09/05/24 05:26 117/79 09/05/24 05:00 98.0 57 17 98.0 09/04/24 19:48 Room Air* 0 21 Intake/Output Intake and Output 09/05/24 07:00 Intake Total 1755 ml Balance 1755 ml Intake Oral 1755 ml # Voids 10 # Bowel Movements 1 Medications Current Medications Medications Dose Ordered Sig/Brian Route Start Time Stop Time Status Last Admin Dose Admin Furosemide 20 mg BIDD IV 09/04/24 06:00 09/05/24 05:26 20 MG Amiodarone HCl 200 mg Q12HR PO 09/03/24 22:00 09/04/24 21:19 200 MG Carvedilol 3.125 mg Q12HR PO 09/03/24 22:00 09/04/24 21:22 3.125 MG Aspirin 81 mg DAILY PO 09/04/24 10:00 09/04/24 09:50 81 MG Digoxin 0.125 mg DAILY PO 09/04/24 10:00 09/04/24 09:51 0.125 MG Ivabradine 5 mg BID PO 09/03/24 22:00 09/04/24 21:20 5 MG Sacubitril/ Valsartan 1 tab BID PO 09/03/24 22:00 Atorvastatin Calcium 10 mg HS PO 09/03/24 22:00 09/04/24 21:21 10 MG Midodrine 10 mg TID@0600,1200,1800 PO 09/04/24 06:00 09/05/24 05:26 10 MG Diagnostic Test (Pha) 1 strip ACHS 09/03/24 22:00 09/05/24 05:34 1 STRIP Insulin Human Regular ACHS SC 09/03/24 22:00 Dextrose 50 ml UD PRN IV 09/03/24 19:45 Acetaminophen/ Hydrocodone Bitart 1 tab Q4HP PRN PO 09/03/24 19:45 09/04/24 21:32 1 TAB Temazepam 15 mg QHSP PRN PO 09/03/24 19:45 09/04/24 21:31 15 MG Ondansetron HCl 4 mg Q4HP PRN IV 09/03/24 19:45 Enoxaparin Sodium 40 mg DAILY SC 09/04/24 10:00 Acetaminophen 650 mg Q6HP PRN PO 09/03/24 19:45 Nitroglycerin 0.4 mg Q5MINP PRN SL 09/04/24 00:45 Morphine Sulfate 2 mg Q30M PRN IV 09/04/24 00:45 09/04/24 01:30 2 MG Laboratory Results Laboratory Tests 09/03/24 13:54 09/04/24 05:18 Coagulation Test 09/04/24 12:09 D-Dimer, Quantitative 0.43 mg/L FEU (0.0-0.49) Microbiology Microbiology Date/Time Source Procedure Growth Status 09/04/24 01:43 Nose MRSA Screen - Final Complete Labs and/or images reviewed: Labs reviewed by me, Image(s) reviewed by me Assessment/Plan Assessment/Plan Acute hypoxic respiratory failure: Oxygen by nasal cannula Acute CHF exacerbation: Lasix, 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 Villeda pending, echo 5 % May 2024 Patient with history of ICD / PTCA Hypokalemia Atrial fibrillation Chronic kidney disease RADHA History of OR status post stents Type 2 DM Hypertension ICD Continue all home medications History of polysubstance abuse History of smoking Leonor test negative Flu test negative D-dimer normal We will check UDs Plan discussed with: Patient My Orders Orders - FIORELLA DEVINE MD Procedure Category Date Status Time Drug Screen LAB 09/04/24 Logged 11:51 * Cardiology Consult CONS 09/04/24 Transmitted 11:51 * Developmental Behavioral Physician CONS 09/04/24 Transmitted Consult Date of Service: Sep 05, 2024 Billing Provider: FIORELLA DEVIEN MD Common Visit Codes: [id number] INP/OBS CARE(HIGH) FIORELLA DEVINE MD Sep 05, 2024 08:34
--- NOTE | 2024-09-05 16:34 | DVHPN2 ---
Progress Note Date Seen: Sep 05, 2024 Medical Necessity Reason Pt with a Central, PICC or Fol: No Subjective Patient reports: Feels worse Objective vital signs Vital Sign Date Time Temp Pulse Resp B/P (MAP) Pulse Ox O2 Delivery O2 Flow Rate FiO2 09/05/24 13:00 96.8 59 16 85/54 (64) 91 96.8 09/05/24 08:00 Nasal Cannula* 2 28 Total Intake and Output 09/04/24 09/04/24 09/05/24 15:00 23:00 07:00 Intake Total 475 ml 1280 ml Balance 475 ml 1280 ml medications Current Medications Medications Dose Ordered Sig/Brian Route Start Time Stop Time Status Last Admin Dose Admin Furosemide 20 mg BIDD IV 09/04/24 06:00 09/05/24 05:26 20 MG Amiodarone HCl 200 mg Q12HR PO 09/03/24 22:00 09/05/24 09:40 200 MG Carvedilol 3.125 mg Q12HR PO 09/03/24 22:00 09/04/24 21:22 3.125 MG Aspirin 81 mg DAILY PO 09/04/24 10:00 09/05/24 09:40 81 MG Digoxin 0.125 mg DAILY PO 09/04/24 10:00 09/04/24 09:51 0.125 MG Ivabradine 5 mg BID PO 09/03/24 22:00 09/05/24 09:39 5 MG Sacubitril/ Valsartan 1 tab BID PO 09/03/24 22:00 09/05/24 09:40 1 TAB Atorvastatin Calcium 10 mg HS PO 09/03/24 22:00 09/04/24 21:21 10 MG Midodrine 10 mg TID@0600,1200,1800 PO 09/04/24 06:00 09/05/24 11:53 10 MG Diagnostic Test (Pha) 1 strip ACHS 09/03/24 22:00 09/05/24 11:54 1 STRIP Insulin Human Regular ACHS SC 09/03/24 22:00 Dextrose 50 ml UD PRN IV 09/03/24 19:45 Acetaminophen/ Hydrocodone Bitart 1 tab Q4HP PRN PO 09/03/24 19:45 09/04/24 21:32 1 TAB Temazepam 15 mg QHSP PRN PO 09/03/24 19:45 09/04/24 21:31 15 MG Ondansetron HCl 4 mg Q4HP PRN IV 09/03/24 19:45 Enoxaparin Sodium 40 mg DAILY SC 09/04/24 10:00 Acetaminophen 650 mg Q6HP PRN PO 09/03/24 19:45 Nitroglycerin 0.4 mg Q5MINP PRN SL 09/04/24 00:45 Morphine Sulfate 2 mg Q30M PRN IV 09/04/24 00:45 09/04/24 01:30 2 MG laboratory and microbiology Laboratory Tests 09/04/24 05:18 09/03/24 13:54 Test 09/04/24 05:18 Range/Units Serum Glucose 79 74-106 mg/dL Microbiology Date/Time Source Procedure Growth Status 09/04/24 01:43 Nose MRSA Screen - Final Complete Problem List/Assessment/Plan Problem List/Assessment/Plan end stage CHF there is nothign we can offer patient besides diuresis pt likely homeless and is admitted close to 30 days a month between hospitals pt has declined hospice he is aware thaere is nothing else to do for him as per my dozens of notes in past year i will sign off, Plan discussed with: Patient Date of Service: Sep 05, 2024 Billing Provider: JASKARAN NG MD Common Visit Codes: NOT BILLABLE JASKARAN NG MD Sep 05, 2024 16:34
[2024-09-05 17:09] LABS: Amphetamine Screen, Urine Neg (NEGATIVE)
[2024-09-05 17:10] LABS: Cannabinoid Screen, Urine Pos (NEGATIVE); Opiate Scree,Urine Neg (NEGATIVE)
[2024-09-05 17:13] LABS: Barbiturate Scree,Urine Neg (NEGATIVE); Benzodiazephine Screen, Urine Neg (NEGATIVE); Cocaine Screen, Urine Neg (NEGATIVE); Phencyclidine Screen, Urine Neg (NEGATIVE)
[2024-09-06 05:07] VITALS: BP 95/64; PULSE 56; RESP 18; TEMP 98; O2SAT 100
[2024-09-06 08:00] VITALS: PULSE 60; RESP 16; O2SAT 100
[2024-09-06] MEDS ORDERED: BUME2TAB5 PO (08:21)
[2024-09-06] MEDS ORDERED: SPIR25TA PO (08:21)
--- NOTE | 2024-09-06 08:22 | DVHPN2 ---
Reviewed: Care Plan, H&P, Labs, Medications, Previous Orders, Radiology Changes from previous H/P or p: No Changes Objective Vitals Vital Signs Date Time Temp Pulse Resp B/P (MAP) Pulse Ox O2 Delivery O2 Flow Rate FiO2 09/06/24 05:31 95/63 09/06/24 05:07 98.0 56 18 100 98.0 09/05/24 19:49 Nasal Cannula* 2 28 Intake/Output Intake and Output 09/06/24 07:00 Intake Total 900 ml Balance 900 ml Intake Oral 900 ml # Voids 7 Medications Current Medications Medications Dose Ordered Sig/Brian Route Start Time Stop Time Status Last Admin Dose Admin Furosemide 20 mg BIDD IV 09/04/24 06:00 09/05/24 17:25 20 MG Amiodarone HCl 200 mg Q12HR PO 09/03/24 22:00 09/05/24 21:15 200 MG Carvedilol 3.125 mg Q12HR PO 09/03/24 22:00 09/04/24 21:22 3.125 MG Aspirin 81 mg DAILY PO 09/04/24 10:00 09/05/24 09:40 81 MG Digoxin 0.125 mg DAILY PO 09/04/24 10:00 09/04/24 09:51 0.125 MG Ivabradine 5 mg BID PO 09/03/24 22:00 09/05/24 21:14 5 MG Sacubitril/ Valsartan 1 tab BID PO 09/03/24 22:00 09/05/24 09:40 1 TAB Atorvastatin Calcium 10 mg HS PO 09/03/24 22:00 09/05/24 21:15 10 MG Midodrine 10 mg TID@0600,1200,1800 PO 09/04/24 06:00 09/06/24 05:32 10 MG Diagnostic Test (Pha) 1 strip ACHS 09/03/24 22:00 09/06/24 05:54 1 STRIP Insulin Human Regular ACHS SC 09/03/24 22:00 Dextrose 50 ml UD PRN IV 09/03/24 19:45 Acetaminophen/ Hydrocodone Bitart 1 tab Q4HP PRN PO 09/03/24 19:45 09/05/24 21:21 1 TAB Temazepam 15 mg QHSP PRN PO 09/03/24 19:45 09/05/24 21:20 15 MG Ondansetron HCl 4 mg Q4HP PRN IV 09/03/24 19:45 Enoxaparin Sodium 40 mg DAILY SC 09/04/24 10:00 Acetaminophen 650 mg Q6HP PRN PO 09/03/24 19:45 Nitroglycerin 0.4 mg Q5MINP PRN SL 09/04/24 00:45 Morphine Sulfate 2 mg Q30M PRN IV 09/04/24 00:45 09/04/24 01:30 2 MG Laboratory Results Laboratory Tests 09/03/24 13:54 09/04/24 05:18 Microbiology Microbiology Date/Time Source Procedure Growth Status 09/04/24 01:43 Nose MRSA Screen - Final Complete Labs and/or images reviewed: Labs reviewed by me, Image(s) reviewed by me Assessment/Plan Assessment/Plan Acute hypoxic respiratory failure: Oxygen by nasal cannula Acute CHF exacerbation: Lasix, 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 Villeda appreciated echo 5 % May 2024 Patient with history of ICD / PTCA Hypokalemia Atrial fibrillation Chronic kidney disease RADHA History of OR status post stents Type 2 DM Hypertension ICD Continue all home medications History of polysubstance abuse History of smoking Leonor test negative Flu test negative D-dimer normal We will check UDs Plan discussed with: Patient My Orders Orders - FIORELLA DEVINE MD Procedure Category Date Status Time Electrocardigram EKG 09/05/24 Logged 13:49 * Single Wire Saw Operator CONS 09/06/24 Transmitted Consult Date of Service: Sep 06, 2024 Billing Provider: FIORELLA DEVINE MD Common Visit Codes: [id number] INP/OBS CARE(HIGH) FIORELLA DEVINE MD Sep 06, 2024 08:22
--- NOTE | 2024-09-06 08:27 | DVHDS2 ---
Discharge Summary Date of Admission Sep 03, 2024 at 19:37 Date of Discharge: Sep 06, 2024 Admitting Diagnosis Shortness of breath Wounds: None Labs/Diagnostic Data: Laboratory Results Test 09/06/24 05:37 09/05/24 16:30 09/04/24 12:09 09/04/24 12:00 POC Glucose 93 mg/dl (70-106) Urine Opiates Screen Neg (NEGATIVE) Urine Fentanyl Screen Neg (NEGATIVE) Urine Barbiturates Screen Neg (NEGATIVE) Urine Phencyclidine Screen Neg (NEGATIVE) Urine Amphetamines Screen Neg (NEGATIVE) Urine Benzodiazepines Screen Neg (NEGATIVE) Urine Cocaine Screen Neg (NEGATIVE) Urine Cannabinoids Screen Pos (NEGATIVE) D-Dimer, Quantitative 0.43 mg/L FEU (0.0-0.49) Influenza Type A Antigen Negative (Negative) Influenza Type B Antigen Negative (Negative) SARS-CoV-2 Antigen (Rapid) Negative (NEGATIVE) Test 09/04/24 05:18 09/03/24 16:56 09/03/24 13:54 Sodium Level 134 mmol/L (136-145) Potassium Level 3.9 mmol/L (3.5-5.1) Chloride Level 97 mmol/L (98-107) Carbon Dioxide Level 29 mmol/L (20-31) Anion Gap 8 (5-15) Blood Urea Nitrogen 30 mg/dL (9-23) Creatinine 1.46 mg/dL (0.700-1.30) Glomerular Filtration Rate Calc 54 mL/min (>90) BUN/Creatinine Ratio 20.5 (10.0-20.0) Serum Glucose 79 mg/dL (74-106) Calcium Level 9.9 mg/dL (8.7-10.4) Troponin I High Sensitivity 54 ng/L (</=54) White Blood Count 5.6 10^3/uL (4.4-10.8) Red Blood Count 4.57 10^6/uL (4.5-5.90) Hemoglobin 13.7 g/dL (13.5-17.5) Hematocrit 41.6 % (41.0-53.0) Mean Corpuscular Volume 91.0 fL (80.0-100.0) Mean Corpuscular Hemoglobin 29.9 pg (28.0-32.0) Mean Corpuscular Hemoglobin Concent 32.9 g/dL (32.0-36.0) Red Cell Distribution Width 22.3 % (11.8-14.3) Platelet Count 219 10^3/uL (140-450) Mean Platelet Volume 7.9 fL (6.9-10.8) Neutrophils (%) (Auto) 70.4 % (37.0-80.0) Lymphocytes (%) (Auto) 10.9 % (10.0-50.0) Monocytes (%) (Auto) 16.4 % (0.0-12.0) Eosinophils (%) (Auto) 1.2 % (0.0-7.0) Basophils (%) (Auto) 1.1 % (0.0-2.0) Neutrophils # (Auto) 4.0 10 ^3/uL (1.6-8.6) Lymphocytes # (Auto) 0.6 10 ^3/uL (0.4-5.4) Monocytes # (Auto) 0.9 10 ^3/uL (0-1.3) Eosinophils # (Auto) 0.1 10 ^3/uL (0-0.8) Basophils # (Auto) 0.1 10 ^3/uL (0-0.2) Nucleated Red Blood Cells 0.3 % B-Type Natriuretic Peptide 3052.56 pg/mL (0-100) Other Laboratory Tests 09/04/24 05:18 09/03/24 13:54 Brief Hx & Hospital Course: 64-year-old male with a history of severe systolic congestive heart failure with the ejection fraction 5 % AFib chronic kidney disease history of OK status post stents type 2 diabetes hypertension status post ICD on multiple home medications noncompliant living in a [facility] frequent admissions came in complaining of shortness of breaths found to have acute CHF exacerbation treated with the diuretics and continued on home medications. Seen by patient's steel loader Dr. Villeda advised to continue the medications. Patient feels slightly better alert awake on room air. Discharged home. Reviewed all his home medications. Prescription for spironolactone and Bumex transmitted to the pharmacy. Flu test negative COVID test negative. Consults/Reason for consult Cardiology Dr. Villeda Operations or Procedures None Condition at Discharge: Fair Final Diagnosis/Problems List Acute hypoxic respiratory failure: Oxygen by nasal cannula Acute CHF exacerbation: Jarrod, consult for patient's steel loader Dr. Villeda appreciated echo 5 % May 2024 Patient with history of ICD / PTCA Hypokalemia Atrial fibrillation Chronic kidney disease RADHA History of OK status post stents Type 2 DM Hypertension ICD Continue all home medications History of polysubstance abuse History of smoking Leonor test negative Flu test negative D-dimer normal Discharge Disposition: Assisted Living Facility Discharge Instruct/Medications Diet: Cardiac 2g Na,low cholest Activity: Light activity Follow Up/Referral: Resume all previous home medications follow up with your primary Dr Dr. Chavez in one week Follow up with the Cardiology Dr. Villeda in two weeks Medications: Reviewed all previous home medications Bumex Aldactone Transmitted to pharmacy 39 (Time taken for discharge summary 39 minutes) Discharge Statement: "Patient was advised to return to the ER or call 911 if any headaches, dizziness, shortness of breath, chest pain, abdominal pain, bleeding, fevers, or worsening of medical condition. Patient was counseled about treatment plan, medications, possible side effects, patientverbalized understanding. All questions were answered to the best of my ability. This discharge took greater then 30 minutes in planning, reviewing documentation, counseling the patient, and discussing with other team members." ASSESSMENT ASSESSMENT Hospital Course Improved marginally Assessment Acute hypoxic respiratory failure: Oxygen by nasal cannula Acute CHF exacerbation: Lasix, consult for patient's steel loader Dr. Villeda appreciated echo 5 % May 2024 Patient with history of ICD / PTCA Hypokalemia Atrial fibrillation Chronic kidney disease RADHA History of OK status post stents Type 2 DM Hypertension ICD Continue all home medications History of polysubstance abuse History of smoking Leonor test negative Flu test negative D-dimer normal Date of Service: Sep 06, 2024 Billing Provider: FIORELLA DEVINE MD Common Visit Codes: [id number] DISCH DAY >30min FIORELLA DEVINE MD Sep 06, 2024 08:27
[2024-09-06 08:40] VITALS: BP 112/75; PULSE 59; RESP 19; TEMP 97.6; O2SAT 94
[2024-09-06 08:46] VITALS: BP 95/63
--- NOTE | 2024-09-07 15:48 | ECG ---
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
== END 2024-09-06 09:11 | disposition home or self-care (01) | DRG 194 ==
LOC: ER 13:11 → OVERFLOW 19:37 → CENTRAL 23:40 → TELE-CENTR 09-04 08:49
PROVIDERS: ADMIT Nurse Practitioner; ATTEND Family Medicine
DX: I13.0 Hypertensive heart and chronic kidney disease with heart failure and stage 1 through stage 4 chronic kidney disease, or unspecified chronic kidney disease (principal); J96.01 Acute respiratory failure with hypoxia; N17.9 Acute kidney failure, unspecified; N18.9 Chronic kidney disease, unspecified; Z20.822 Contact with and (suspected) exposure to COVID-19; E11.22 Type 2 diabetes mellitus with diabetic chronic kidney disease; I48.91 Unspecified atrial fibrillation; E87.6 Hypokalemia; E78.5 Hyperlipidemia, unspecified; I25.119 Atherosclerotic heart disease of native coronary artery with unspecified angina pectoris; Z95.810 Presence of automatic (implantable) cardiac defibrillator; Z87.891 Personal history of nicotine dependence; Z91.013 Allergy to seafood; I25.2 Old myocardial infarction; Z95.5 Presence of coronary angioplasty implant and graft; Z91.148 Patient's other noncompliance with medication regimen for other reason; I50.43 Acute on chronic combined systolic (congestive) and diastolic (congestive) heart failure
CPT/HCPCS: 36415; 71045; 80048; 80307; 82962; 83880; 84484; 85025; 85379; 87081; 87426; 87804; 93005; 99291; G0378

== ENCOUNTER 2024-12-27 13:33 | Inpatient (IN) | payer MEDICAID ==
[~2024-12-27] VITALS: Ht 182.9 cm; Wt 87.5 kg
[~2024-12-27 13:33] MED LIST changes: +ASPI-325; +MEXI150C15; +SPIR25TA PO
--- NOTE | 2024-12-27 13:41 | ECG ---
[facility] Test Date: 2024-12-27 Test Time: 13:40:05 Pat Name: SUHAIL VILLALTA Department: ER Room: 0214T Gender: M Serger: FLOYD : 1960 Requested By: ARBEN JONES Order Number: [id number] Reading MD: Adrián Mock Measurements Intervals [place] Rate: 81 P: 51 OK: 215 QRS: -67 QRSD: 170 T: 104 QT: 448 QTc: 520 Interpretive Statements Sinus rhythm Borderline prolonged OK interval Nonspecific IVCD with LAD LVH with secondary repolarization abnormality Electronically Signed On 12-31-2024 20:47:37 PDT by Adrián Mock Please click the below link to view image of tracing.
[2024-12-27 14:13] LABS: Alanine Aminotransferase 19 U/L (7-40); Calcium 10.2 mg/dL (8.7-10.4); Carbon Dioxide 26 mmol/L (20-31); Chloride 102 mmol/L (98-107)
[2024-12-27 14:14] LABS: Albumin 4.6 g/dL (3.2-4.8); Anion Gap 9 (5-15); Aspartate Aminotransferase 22 U/L (13-40); BUN/Creatinine Ratio 16.5 (10.0-20.0); Blood Urea Nitrogen 20 mg/dL (9-23); Potassium 3.8 mmol/L (3.5-5.1); Sodium 137 mmol/L (136-145); Total Protein 6.8 g/dL (5.7-8.2)
[2024-12-27 14:26] LABS: Alkaline Phosphatase 164 U/L (46-116); Bilirubin, Total 2.1 mg/dL (0.2-1.0); Glucose 110 mg/dL (74-106)
[2024-12-27 14:54] LABS: Basophils # (auto) 0 10 ^3/uL (0-0.2); Basophils % (auto) 0.8 % (0.0-2.0); Eosinophils # (auto) 0.1 10 ^3/uL (0-0.8); Eosinophils % (auto) 1.4 % (0.0-7.0); Hemoglobin 12.8 g/dL (13.5-17.5); Lymphocytes # (auto) 0.6 10 ^3/uL (0.4-5.4); Lymphocytes % (auto) 12.6 % (10.0-50.0); Mean Corpuscular Hemoglobin 32.3 pg (28.0-32.0); Mean Corpuscular Hgb Conc. 33.6 g/dL (32.0-36.0); Mean Corpuscular Volume 96.1 fL (80.0-100.0); Monocytes # (auto) 0.7 10 ^3/uL (0-1.3); Monocytes % (auto) 14.7 % (0.0-12.0); Neutrophils # (auto) 3.4 10 ^3/uL (1.6-8.6); Neutrophils % (auto) 70.5 % (37.0-80.0); Nucleated Red Blood Cells % 0.1 %; Platelet Count (auto) 194 10^3/uL (140-450); Red Blood Cells 3.96 10^6/uL (4.5-5.90); Red Cell Distribution Width 16.7 % (11.8-14.3); White Blood Cell 4.8 10^3/uL (4.4-10.8)
--- NOTE | 2024-12-27 14:58 | DVH ---
EXAM: XY CHEST PORTABLE TECHNIQUE: Single frontal chest radiograph CLINICAL HISTORY: cp COMPARISON: XY CHEST PORTABLE on DOS: 09/03/24, XY CHEST PORTABLE on DOS: 08/31/24, XY CHEST PORTABLE on DOS: 05/09/24 Findings/Impression: Frontal chest radiograph demonstrates no acute osseous or superficial soft tissue abnormalities. Left chest wall ESTATE CONSERVATOR-D. The trachea is midline. Cardiomegaly with pulmonary vascular congestion. No pneumothorax, pleural effusions, or consolidations.
--- NOTE | 2024-12-27 16:06 | ED.PDOC ---
HPI Comments 64 year old male presents to the ED with chief complaint of chest pain. Patient reports that he has been experiencing left sided chest pain with associated nausea, cough, dry heaving, and SOB since 6am today. Patient relays that his pain is currently an 8/10. Patient states that during his last visit to the ED, his ICD had went off. Patient denies any dizziness, fever, chills, vomiting, numbness, weakness, tingling, or abdominal pain. Chief Complaint: Chest Pain Time Seen by MD: 16:05 Primary Care Provider: GABRIELA Reviewed Notes: Nurses Notes, Medications, Allergies Allergies: Coded Allergies: Shellfish Allergy (Unverified Allergy, Severe, 09/11/23) CRAB Uncoded Allergies: CRAB (Allergy, Severe, 08/06/17) Home Meds Active Scripts Spironolactone (Aldactone) 25 Mg Tab, 1 TAB PO DAILY, #30 TAB 5 Refills Prov:FIORELLA DEVINE MD 09/06/24 Bumetanide (Bumetanide) 2 Mg Tab, 1 TAB PO BID, #60 TAB 5 Refills Prov:FIORELLA DEVINE MD 09/06/24 Potassium Chloride (Potassium Chloride ER) 10 Meq Tab, 20 MEQ PO DAILY for 30 Days, #60 TAB Prov:MEME JAIME MD 04/30/24 Bumetanide (Bumetanide) 2 Mg Tab, 1 TAB PO BID for 30 Days, #60 TAB 1 Refill Prov:MEME JAIME MD 04/30/24 Amiodarone HCl (Amiodarone HCl) 200 Mg Tab, 200 MG PO Q12HR for 30 Days, #60 TAB Prov:ESTEVAN BRAN RESIDENT 02/07/24 Acetaminophen (Acetaminophen) 325 Mg Tab, 325 MG PO Q4HP PRN for 10 Days, #50 TAB Prov:ESTEVAN BRAN RESIDENT 02/07/24 Reported Medications Aspirin (Aspirin Low Dose) 81 Mg Tab, 1 DAILY 09/04/24 Mexiletine HCl (Mexiletine Hydrochloride) 150 Mg Cap, 1 09/04/24 Pantoprazole Sodium Sesquihydr (Pantoprazole Sodium) 40 Mg Tab, 40 MG PO DAILY, TAB 05/12/24 Simvastatin (Simvastatin) 10 Mg Tab, 10 MG PO DAILY, MG 05/12/24 Midodrine HCl (Midodrine Hydrochloride) 5 Mg Tab, 2 TAB PO TID, TAB 05/10/24 Cholecalciferol (VITAMIN D3) 2,000 Unit Tab, 1 TAB PO DAILY 01/09/24 Digoxin (Digoxin) 125 Mcg Tab, 1 TAB PO DAILY 01/09/24 Vericiguat (Verquvo) 10 Mg Tab, 1 TAB PO DAILY 01/09/24 Ivabradine Hydrochloride (Corlanor) 5 Mg Tab, 1 TAB PO BID 08/16/23 Spironolactone (Spironolactone) 25 Mg Tab, 1 TAB PO BID 05/15/23 Sacubitril-Valsartan (Entresto 24-26 mg) 1 Tab Tab, 1 TAB PO BID, TAB 05/15/23 Nitroglycerin (NTROSTAT SUBLINGUAL) 0.4 Mg Sl, 0.4 MG SL PRN, TAB *MAY REPEAT EVERY 5 MINUTES X 3 TOTAL IF NO RELIEF, INITIATE ANALGESIC THERAPY. NOTIFY PHYSICIAN *Do not crush. 05/15/23 Dapagliflozin Propanediol (Farxiga) 10 Mg Tab, 10 MG PO DAILY, TAB 05/15/23 Carvedilol (Carvedilol) 3.125 Mg Tab, 3.125 MG PO BID, MG 05/15/23 Aspirin (Aspir-Low) 81 Mg Tab, 81 MG PO DAILY, MG 05/15/23 Information Source: Patient Mode of Arrival: Ambulatory Severity: Moderate Timing: Hours Duration: Since onset Prehospital treatment: None Location: Chest (L) Radiation: No Radiation Quality: Sharp Onset: At Rest PE Risk Factors: None Associated Signs and Symptoms: SOB, N/V Past Medical History PAST MEDICAL HISTORY: AFIB, Angina, CAD, CHF, DM, High Lipids, HTN, PE Surgical History: Pacemaker, PTCA Surgical History (Other): ICD, eye surgery Family History Family History: Reviewed,noncontributory to illness, Family hx of DM, Family hx of heart bhavik, Family hx of HTN Social History Smoker: Quit Greater Than 1 Year, Cigarettes Alcohol: Sober Drugs: Denies Drug Use Lives In: Home Constitutional: denies: chills, diaphoresis, fatigue, fever, malaise, sweats, weakness, others EENTM: denies: blurred vision, double vision, ear bleeding, ear discharge, ear drainage, ear pain, ear ringing, eye pain, eye redness, hearing loss, mouth pain, mouth swelling, nasal discharge, nose bleeding, nose congestion, nose pain, photophobia, tearing, throat pain, throat swelling, voice changes, others Respiratory: reports: cough, shortness of breath; denies: hemoptysis, orthopnea, SOB at rest, SOB with excertion, stridor, wheezing, others Cardiovascular: reports: chest pain; denies: dizzy spells, diaphoresis, Dyspnea on exertion, edema, irregular heart beat, left arm pain, lightheadedness, palpitations, PND, syncope, others Gastrointestinal: reports: nausea, others (Dry heaving); denies: abdomen distended, abdominal pain, blood streaked bowels, constipated, diarrhea, dysphagia, difficulty swallowing, hematemesis, melena, poor appetite, poor fluid intake, rectal bleeding, rectal pain, vomiting Genitourinary: denies: burning, dysuria, flank pain, frequency, hematuria, incontinence, penile discharge, penile sore, pain, testicle pain, testicle swelling, urgency, others Neurological: denies: dizziness, fainting, headache, left sided numbness, left sided weakness, numbness, paresthesia, pre-existing deficit, right sided numbness, right sided weakness, seizure, speech problems, tingling, tremors, weakness, others Musculoskeletal: denies: back pain, gout, joint pain, joint swelling, muscle pain, muscle stiffness, neck pain, others Integumetry: denies: bruises, change in color, change in hair/nails, dryness, laceration, lesions, lumps, rash, wounds, others Allergic/Immunocompromised: denies: Difficulty Healing, Frequent Infections, Hives, Itching, others Hematologic/Lymphatic: denies: anemia, blood clots, easy bleeding, easy bruising, swollen glands, others Endocrine: denies: excessive hunger, excessive sweating, excessive thirst, excessive urination, flushing, intolerance to cold, intolerance to heat, unex plained weight gain, unexplained weight loss, others Psychiatric: denies: anxiety, bipolar disorder, depression, hopeless, panic disorder, schizophrenia, sleepless, suicidal, others All Other Systems: Reviewed and Negative Physical Exam General Appearance: No Apparent Distress HEENT: Other (Pupils and face symmetric. Moist mucous membranes.) Neck: Full Range of Motion, Normal Inspection Respiratory: Crackles, Decreased Breath Sounds, No Accessory Muscle Use, No Respiratory Distress Cardiovascular: No JVD, Regular Rate/Rhythm Breast Exam: Deferred Gastrointestinal: Non Tender, Soft Genitalia: Deferred Pelvic: Deferred Rectal: Deferred Extremities: Normal range of motion, Non-tender Neurologic: Alert (Oriented x4), Normal Affect, Normal Mood, Other (Ambulatory) Cerebellar Function: NOT DONE Reflexes: NOT DONE Skin: Dry, Normal Color, Warm Lymphatic: NOT DONE EKG EKG : Comments Sinus rhythm, rate 81, [place] prolonged at 215, QRS prolonged at 170, QTC prolonged at 520, left axis deviation, old inferior infarct, intraventricular conduction delay, lateral T-wave inversion Was a procedure done? Was a procedure done?: No CP Differential Dx Differential Diagnosis: Angina, Anxiety / Panic Attack, Heart Failure, AL Differential Diagnosis: Chest Wall Pain, Esophageal reflux/spasm, Gastritis, Pericarditis, Pneumonia X-Ray, Labs, Meds, VS Vital Signs Date Time Temp Pulse Resp B/P (MAP) Pulse Ox O2 Delivery O2 Flow Rate FiO2 12/27/24 17:28 102/68 12/27/24 15:54 97.5 76 18 111/70 (84) 97 97.5 12/27/24 13:54 97.9 85 20 104/71 (82) 96 97.9 12/27/24 13:40 81 Lab Test 12/27/24 16:41 12/27/24 14:53 12/27/24 13:44 Range/Units Troponin I High Sensitivity 18 17 17 </=54 ng/L White Blood Count 4.8 4.4-10.8 10^3/uL Red Blood Count 3.96 L 4.5-5.90 10^6/uL Hemoglobin 12.8 L 13.5-17.5 g/dL Hematocrit 38.0 L 41.0-53.0 % Mean Corpuscular Volume 96.1 80.0-100.0 fL Mean Corpuscular Hemoglobin 32.3 H 28.0-32.0 pg Mean Corpuscular Hemoglobin Concent 33.6 32.0-36.0 g/dL Red Cell Distribution Width 16.7 H 11.8-14.3 % Platelet Count 194 140-450 10^3/uL Mean Platelet Volume 7.9 6.9-10.8 fL Neutrophils (%) (Auto) 70.5 37.0-80.0 % Lymphocytes (%) (Auto) 12.6 10.0-50.0 % Monocytes (%) (Auto) 14.7 H 0.0-12.0 % Eosinophils (%) (Auto) 1.4 0.0-7.0 % Basophils (%) (Auto) 0.8 0.0-2.0 % Neutrophils # (Auto) 3.4 1.6-8.6 10 ^3/uL Lymphocytes # (Auto) 0.6 0.4-5.4 10 ^3/uL Monocytes # (Auto) 0.7 0-1.3 10 ^3/uL Eosinophils # (Auto) 0.1 0-0.8 10 ^3/uL Basophils # (Auto) 0 0-0.2 10 ^3/uL Nucleated Red Blood Cells 0.1 % Sodium Level 137 136-145 mmol/L Potassium Level 3.8 3.5-5.1 mmol/L Chloride Level 102 98-107 mmol/L Carbon Dioxide Level 26 20-31 mmol/L Anion Gap 9 5-15 Blood Urea Nitrogen 20 9-23 mg/dL Creatinine 1.21 0.700-1.30 mg/dL Glomerular Filtration Rate Calc 68 >90 mL/min BUN/Creatinine Ratio 16.5 10.0-20.0 Serum Glucose 110 H 74-106 mg/dL Calcium Level 10.2 8.7-10.4 mg/dL Total Bilirubin 2.1 H 0.2-1.0 mg/dL Aspartate Amino Transferase (AST) 22 13-40 U/L Alanine Aminotransferase (ALT) 19 7-40 U/L Alkaline Phosphatase 164 H 46-116 U/L B-Type Natriuretic Peptide 2357.80 0-100 pg/mL Total Protein 6.8 5.7-8.2 g/dL Albumin 4.6 3.2-4.8 g/dL Current Medications Medications (Trade) Dose Ordered Sig/Brian Route Start Time Stop Time Status Last Admin Aspirin 325 mg ONCE ONCE PO 12/27/24 16:15 12/27/24 16:16 DC 12/27/24 17:18 Acetaminophen/ Hydrocodone Bitart ([place] 10/325MG Tab) 1 tab ONCE ONCE PO 12/27/24 17:45 12/27/24 17:46 DC 12/27/24 17:55 PROCEDURE(s): CXRP - CHEST PORTABLE REASON: cp ORDER NUMBER(s): [id number], ACCESSION NUMBER(s): [id number] EXAM: XY CHEST PORTABLE TECHNIQUE: Single frontal chest radiograph CLINICAL HISTORY: cp COMPARISON: XY CHEST PORTABLE on DOS: 09/03/24, XY CHEST PORTABLE on DOS: 08/31/24, XY CHEST PORTABLE on DOS: 05/09/24 Findings/Impression: Frontal chest radiograph demonstrates no acute osseous or superficial soft tissue abnormalities. Left chest wall [employer]-D. The trachea is midline. Cardiomegaly with pulmonary vascular congestion. No pneumothorax, pleural effusions, or consolidations. X-Ray, Labs, Meds, VS Comment 64-year-old male with a history of AFib, CAD, CHF, hypertension, diabetes, dyslipidemia complaining of chest pain and shortness of breath Vitals unremarkable Exam remarkable for diminished breath sounds and bibasilar rales Rhythm strip independently interpreted by me: Sinus rhythm, rate 81, no ectopy. Chest x-ray Findings/Impression: Frontal chest radiograph demonstrates no acute osseous or superficial soft tissue abnormalities. Left chest wall [employer]SE W[employer]ER-D. The trachea is midline. Cardiomegaly with pulmonary vascular congestion. No pneumothorax, pleural effusions, or consolidations. CBC and CMP unremarkable, 3 serial troponins negative, BNP 2357.8 Patient treated with the following in the ED: Aspirin 325 mg p.o., nitro bid 1/2 inch to chest wall, [place] 5/325 mg p.o., Zofran 4 mg IV On re-evaluation, patient states pain has improved. Vitals were stable. Plan is to admit the patient for diuresis and Cardiology evaluation. Time of 1ST Reevaluation: 17:04 Reevaluation 1ST: Unchanged Time of 2ND Reevaluation: 19:00 Reevaluation 2ND: Improved Patient Education/Counseling: Diagnosis, Treatment Family Education/Counseling: No Family Present Departure 1 Departure Time of Disposition: 19:35 Impression: Primary Impression: Acute exacerbation of CHF (congestive heart failure) Qualified Codes: I50.9 - Heart failure, unspecified Additional Impression: Chest pain with high risk for cardiac etiology Disposition: ADMITTED INPATIENT Admit to: [facility] Condition: Guarded Critical Care Note Critical Care Time?: No Stability Stability form required: No Heart Score Heart Score: Heart Score Response (Comments) Value History Highly Suspicious 2 EKG Repolarization Disturb 1 Age 45-64 1 Risk Factors >3 or Hx ASHD 2 Troponin Normal limit 0 Total 6 I personally scribed for ARBEN TITUS MD ([email or web address]) on 12/27/24 at 16:06. Electronically submitted by Bk Gaines ([email or web address]). ARBEN TITUS MD Dec 27, 2024 16:06
[2024-12-27] MEDS: ASPirin 325 MG TAB PO ONE (17:18)
[2024-12-27] MEDS: ONDANSETRON HCL 4 MG/2 ML VIAL IV ONE (17:20)
[2024-12-27] MEDS: MORPHINE SULFATE INJ 2 MG/ml SYRG IV ONE (17:27)
[2024-12-27] MEDS: NITROGLYCERIN 2% OINT 1GM PKG TD ONE (17:28)
[2024-12-27] MEDS: HYDROcodone-ACET 10/325MG TAB PO ONE (17:55)
[2024-12-27] MEDS ORDERED: ACETAMINOPHEN 325 MG TAB PO PRN (20:15)
[2024-12-27] MEDS ORDERED: DEXTROSE (50%) 50ML SYRG IV PRN (20:15)
[2024-12-27] MEDS ORDERED: DOCUSATE SOD 100 MG CAP PO PRN (20:15)
[2024-12-27] MEDS: ASPirin 81 mg TAB PO ONE (21:35)
[2024-12-27] MEDS: FUROSEMIDE 40 MG/4 ML VIAL IV ONE (21:44)
[2024-12-27] MEDS: MORPHINE SULFATE 4 MG/ML SYR/VIAL IV ONE (21:46)
[2024-12-27] MEDS: ONDANSETRON HCL 4 MG/2 ML VIAL IV PRN (21:48)
[2024-12-27] MEDS: ACCU-CHEK COMFORT CURVE STRIP VI SCH (22:00)
--- NOTE | 2024-12-27 22:08 | DVHHP2 ---
History of Present Illness Reason for Visit: Acute exacerbation congestive heart failure History of Present Illness The patient is a 64-year-old male with multiple past medical history including AFib, Coronary artery disease, CHF, DM, PE, and hypertension who presented to [facility] ED with complaint of chest pain. Patient reports that he has been experiencing left sided chest pain rating 8/10 numeric scale, with associated nausea, cough, and shortness of breaths for the past 1 today. Patient was seen and evaluated in the ED, laboratory data shows WBC 4.8, platelets 194, sodium 137, potassium 3.8, BUN 20, creatinine 1.21, glucose 110, total bilirubin 2.1, troponin 18, BNP 2357.80, blood pressure 124/80, heart rate 80, temperature 97.6 F, O2 saturation 94% on oxygen. Please see medication orders section in the computer. On my assessment, patient denied chest pain at this moment, no headache, no dizziness, currently on oxygen, no diaphoresis, no diarrhea, no nausea, no vomiting, no fever, no chills. Patient was admitted for further evaluation and medical management. Past Medical History AFIB, Angina, CAD, CHF, DM, High Lipids, HTN, PE Past Surgical History Pacemaker, PTCA, ICD, eye surgery Family History Reviewed, noncontributory to the management of this case. Past Social History The patient lives at home, quit smoking cigarettes greater than 1 year, sober alcohol, denies illicit drugs abuse. Review of Systems Constitutional: No: Fever, Chills, Sweats, Weakness, Malaise, Other Eyes: No: Pain, Vision change, Conjunctivae inflammation, Eyelid inflammation, Other, Redness ENT: No: Ear pain, Ear discharge, Nose pain, Nose discharge, Nose congestion, Mouth pain, Mouth swelling, Throat pain, Throat swelling, Other Respiratory: Cough, Shortness of breath; No: Dry, SOB with excertion, Wheezing, Hemoptysis, Pleuritic Pain, Sputum, Wheezing, Other Cardiovascular: Chest Pain; No: Palpitations, Orthopnea, Paroxysmal Noc. Dyspnea, Edema, Lt Headedness, Other Gastrointestinal: Nausea; No: Vomiting, Abdominal Pain, Diarrhea, Constipation, Melena, Hematochezia, Other Genitourinary: No Dysuria, No Frequency, No Incontinence, No Hematuria, No Retention, No Other Musculoskeletal: No: other, neck pain, shoulder pain, arm pain, back pain, hand pain, leg pain, foot pain Skin: No: Rash, Lesions, Jaundice, Bruising, Other Neurological: No: Weakness, Numbness, Incoordination, Change in speech, Confusion, Seizures, Other Allergies: Coded Allergies: Shellfish Allergy (Unverified Allergy, Severe, 09/11/23) CRAB Uncoded Allergies: CRAB (Allergy, Severe, 08/06/17) Medications Current Medications Medications Dose Ordered Sig/Brian Route Start Time Stop Time Status Last Admin Dose Admin Carvedilol 3.125 mg Q12HR PO 12/27/24 22:00 Atorvastatin Calcium 10 mg HS PO 12/27/24 22:00 Furosemide 40 mg DAILY IV 12/28/24 10:00 Famotidine 20 mg DAILY IV 12/28/24 10:00 Diagnostic Test (Pha) 1 strip ACHS 12/27/24 22:00 Insulin Human Regular ACHS SC 12/27/24 22:00 Dextrose 50 ml UD PRN IV 12/27/24 20:15 Sodium Chloride 10 ml Q8HR IV 12/27/24 22:00 Acetaminophen/ Hydrocodone Bitart 1 tab Q4HP PRN PO 12/27/24 20:15 Ondansetron HCl 4 mg Q4HP PRN IV 12/27/24 20:15 12/27/24 21:48 4 MG Docusate Sodium 100 mg BIDPRN PRN PO 12/27/24 20:15 Acetaminophen 650 mg Q6HP PRN PO 12/27/24 20:15 Exam Vital Signs Vital Signs Date Time Temp Pulse Resp B/P (MAP) Pulse Ox O2 Delivery O2 Flow Rate FiO2 12/27/24 21:53 81 16 110/67 (81) 100 12/27/24 19:22 97.4 97.4 General Appearance: Alert, Oriented X3, Cooperative, No acute distress HEENT: Atraumatic, PERRLA, EOMI, Mucous membr. moist/pink Respiratory: Normal air movement Cardiovascular: Regular rate, Normal S1, Normal S2, No murmurs Abdominal: Normal bowel sounds, Soft, No tenderness, No hepatospenomegaly, No masses Extremities: No clubbing, No cyanosis, No edema, Normal pulses, No tenderness/swelling Skin: No rashes, No breakdown, No significant lesion Neuro: Normal speech, Normal tone, Sensation intact, Cranial nerves 3-12 NL, Reflexes 2+, Other (Generalized weakness) Psych/Mental Status: Mental status NL, Mood NL Labs/Xrays Labs Test 12/27/24 16:41 12/27/24 13:44 Range/Units Troponin I High Sensitivity 18 </=54 ng/L White Blood Count 4.8 4.4-10.8 10^3/uL Red Blood Count 3.96 L 4.5-5.90 10^6/uL Hemoglobin 12.8 L 13.5-17.5 g/dL Hematocrit 38.0 L 41.0-53.0 % Mean Corpuscular Volume 96.1 80.0-100.0 fL Mean Corpuscular Hemoglobin 32.3 H 28.0-32.0 pg Mean Corpuscular Hemoglobin Concent 33.6 32.0-36.0 g/dL Red Cell Distribution Width 16.7 H 11.8-14.3 % Platelet Count 194 140-450 10^3/uL Mean Platelet Volume 7.9 6.9-10.8 fL Neutrophils (%) (Auto) 70.5 37.0-80.0 % Lymphocytes (%) (Auto) 12.6 10.0-50.0 % Monocytes (%) (Auto) 14.7 H 0.0-12.0 % Eosinophils (%) (Auto) 1.4 0.0-7.0 % Basophils (%) (Auto) 0.8 0.0-2.0 % Neutrophils # (Auto) 3.4 1.6-8.6 10 ^3/uL Lymphocytes # (Auto) 0.6 0.4-5.4 10 ^3/uL Monocytes # (Auto) 0.7 0-1.3 10 ^3/uL Eosinophils # (Auto) 0.1 0-0.8 10 ^3/uL Basophils # (Auto) 0 0-0.2 10 ^3/uL Nucleated Red Blood Cells 0.1 % Sodium Level 137 136-145 mmol/L Potassium Level 3.8 3.5-5.1 mmol/L Chloride Level 102 98-107 mmol/L Carbon Dioxide Level 26 20-31 mmol/L Anion Gap 9 5-15 Blood Urea Nitrogen 20 9-23 mg/dL Creatinine 1.21 0.700-1.30 mg/dL Glomerular Filtration Rate Calc 68 >90 mL/min BUN/Creatinine Ratio 16.5 10.0-20.0 Serum Glucose 110 H 74-106 mg/dL Calcium Level 10.2 8.7-10.4 mg/dL Total Bilirubin 2.1 H 0.2-1.0 mg/dL Aspartate Amino Transferase (AST) 22 13-40 U/L Alanine Aminotransferase (ALT) 19 7-40 U/L Alkaline Phosphatase 164 H 46-116 U/L B-Type Natriuretic Peptide 2357.80 0-100 pg/mL Total Protein 6.8 5.7-8.2 g/dL Albumin 4.6 3.2-4.8 g/dL PATIENT: SUHAIL VILLALTA ACCT: [id number] UNIT: [id number] : 1960 LOC: ER ROOM / BED: / AGE / SEX: 64 / M ADM STATUS: REG ER SERVICE [id number] ORDERING PHYSICIAN: ARBEN TITUS MD PROCEDURE(s): CXRP - CHEST PORTABLE REASON: ORDER NUMBER(s): [id number], ACCESSION NUMBER(s): [id number] EXAM: XY CHEST PORTABLE TECHNIQUE: Single frontal chest radiograph CLINICAL HISTORY: COMPARISON: XY CHEST PORTABLE on DOS: 09/03/24, XY CHEST PORTABLE on DOS: 08/31/24, XY CHEST PORTABLE on DOS: 05/09/24 Findings/Impression: Frontal chest radiograph demonstrates no acute osseous or superficial soft tissue abnormalities. Left chest wall [employer]-D. The trachea is midline. Cardiomegaly with pulmonary vascular congestion. No pneumothorax, pleural effusions, or consolidations. Assessment/Plan Assessment/Plan Acute chest pain Heart failure, unspecified Generalized weakness Acute exacerbation of congestive heart failure Acute respiratory distress Plan 1. Admit to telemetry units 2. Breathing treatment 3. Pain control management 4. Management of fluids and electrolytes 5. Consultation for hospitalist 6. Diagnostic tests chest x-ray 7. DVT prophylaxis-on aspirin 8. Repeat labs CBC, CMP in a.m. 9. Continue with current medical management 10. Treatment plan discussed with patient and RN. Patient verbalized understanding. Plan discussed with: Patient, Other (RN) My Orders Orders - SAM SMITH DNP Procedure Category Date Status Time Carvedilol Tablet PHA 12/27/24 In Process (Coreg Tablet) 22:00 Atorvastatin (Lipitor) PHA 12/27/24 In Process 22:00 Furosemide Injection PHA 12/28/24 In Process (Lasix Injection) 10:00 Consistent DIET 12/28/24 Transmitted Carb(Ccho)Diabetes Breakfast Famotidine Injection PHA 12/28/24 In Process (Pepcid Injection) 10:00 Glucose Blood PHA 12/27/24 In Process (Accu-Chek Comfort 22:00 Insulin R (Human) PHA 12/27/24 In Process (Insulin R) 22:00 Dextrose 50% Syringe PHA 12/27/24 In Process 20:15 Allergies JIMMIE 12/27/24 In Process 20:10 Code Status CODE 12/27/24 Transmitted 20:10 Sodium Chloride Lock PHA 12/27/24 In Process (Saline Lock Ns) 22:00 Oxygen Per Hour RT 12/27/24 Transmitted 20:10 Hydrocodone-Acet PHA 12/27/24 In Process 5/325mg Tab ([place] 20:15 Ondansetron Hcl PHA 12/27/24 In Process (Zofran) 20:15 Docusate Sodium PHA 12/27/24 In Process Capsule (Colace 20:15 Complete Blood Count LAB 12/28/24 Verified 04:00 Comprehensive LAB 12/28/24 Verified Metabolic Panel 04:00 Echo 2d Mode Cardiac US 12/27/24 Logged DOP 20:10 Condition: Serious JIMMIE 12/27/24 In Process 20:10 Acetaminophen Tablet PHA 12/27/24 In Process (Tylenol Tablet) 20:15 Bedrest With Bathroom JIMMIE 12/27/24 In Process Privileg 20:10 Sequential JIMMIE 12/27/24 In Process Compression Device Problem List: (1) Acute chest pain (2) Heart failure, unspecified (3) Generalized weakness (4) Acute exacerbation of CHF (congestive heart failure) (5) Acute respiratory distress Date of Service: Dec 27, 2024 Billing Provider: SAM SMITH DNP Common Visit Codes: 25417-[id number] INP/OBS CARE (HIGH) SAM SMITH DNP Dec 27, 2024 22:08
[2024-12-27] MEDS: InsuLIN REG 1unit/0.01ml Soln (100units/ml) SC SCH (23:52)
[2024-12-28] VITALS (7 sets, daily range): BP systolic 94–114; BP diastolic 57–82; PULSE 68–83; RESP 16–18; TEMP 97.1–98; O2SAT 93–99
[2024-12-28] MEDS: ATORVASTATIN 20 MG TAB PO SCH (00:21)
[2024-12-28] MEDS: CARVEDILOL 3.125 MG TAB PO SCH (00:21)
[2024-12-28] MEDS: SODIUM CHLOR 0.9% PF (SALINE LOCK) 10ML VIAL/SYR IV SCH (00:26)
[2024-12-28 09:12] LABS: Basophils # (auto) 0 10 ^3/uL (0-0.2); Basophils % (auto) 0.8 % (0.0-2.0); Eosinophils # (auto) 0.1 10 ^3/uL (0-0.8); Eosinophils % (auto) 3.4 % (0.0-7.0); Hematocrit 37.4 % (41.0-53.0); Hemoglobin 12.8 g/dL (13.5-17.5); Lymphocytes # (auto) 0.6 10 ^3/uL (0.4-5.4); Lymphocytes % (auto) 14.3 % (10.0-50.0); Mean Corpuscular Hemoglobin 32.8 pg (28.0-32.0); Mean Corpuscular Hgb Conc. 34.2 g/dL (32.0-36.0); Mean Corpuscular Volume 96.1 fL (80.0-100.0); Monocytes # (auto) 0.7 10 ^3/uL (0-1.3); Monocytes % (auto) 15.5 % (0.0-12.0); Neutrophils # (auto) 2.8 10 ^3/uL (1.6-8.6); Nucleated Red Blood Cells % 0.4 %; Platelet Count (auto) 167 10^3/uL (140-450); Red Blood Cells 3.89 10^6/uL (4.5-5.90); Red Cell Distribution Width 17.3 % (11.8-14.3); White Blood Cell 4.2 10^3/uL (4.4-10.8)
[2024-12-28 09:27] LABS: Alanine Aminotransferase 19 U/L (7-40); Albumin 4.3 g/dL (3.2-4.8); Anion Gap 9 (5-15); Aspartate Aminotransferase 23 U/L (13-40); BUN/Creatinine Ratio 15.1 (10.0-20.0); Blood Urea Nitrogen 18 mg/dL (9-23); Calcium 9.9 mg/dL (8.7-10.4); Carbon Dioxide 27 mmol/L (20-31); Chloride 104 mmol/L (98-107); Glucose 97 mg/dL (74-106); Potassium 3.6 mmol/L (3.5-5.1); Sodium 140 mmol/L (136-145); Total Protein 6.4 g/dL (5.7-8.2)
[2024-12-28 09:31] LABS: Alkaline Phosphatase 148 U/L (46-116)
[2024-12-28] MEDS: FUROSEMIDE 40 MG/4 ML VIAL IV SCH (09:34)
[2024-12-28] MEDS: FAMOTIDINE (10MG/ML) 2ML VL IV SCH (09:35)
--- NOTE | 2024-12-28 15:26 | DVHSR ---
APPROVED REPORT EXAM: Two-dimensional and M-mode echocardiogram with Doppler and color Doppler. Blood Pressure: 108/65 mmHg INDICATION CHF Exacerbation Surgery/Intervention Pacemaker: RISK FACTORS Height: 6', Weight: 190 DIMENSIONS LVDd7.3 (3.8-5.7cm)LA (2D)5.7 (1.9-4.0cm)Aortic Root3.3 (2.0-3.7cm) LVDs7.1 (2.5-4.0cm)LA (MM) (1.9-4.0cm)Aortic Cusp Exc1.8 (1.5-2.0cm) EF (%) 6.0 (55-70%)Rt. Atrium6.0 (1.9-4.0cm)Asc. Aorta cm IVSd1.1 (0.7-1.1cm)RV (D) (1.8-2.4cm) PWd1.3 (0.7-1.1cm) Mitral Valve MitralMitral Stenosis E wave0.90m/sMV Mean GR.mmHg A wave0.40m/sMV Peak GR.mmHg E/A ratio2.32D MVAcm2 Aortic Valve Aortic ValveAortic Stenosis V10.30m/[place] Mean GR.2mmHg V20.80m/[place] Peak GR.3mmHg LVOT Diameter2.4 (1.8-2.4cm)Doppler AVA1.70cm2 Pulmonic Valve V20.30m/s Tricuspid Valve TR Velocity3.20m/s [id number] Conclusion REMARKABLY DILATED ALL CARDIAC CHAMBERS SEVERE HYPOKINESIS OF ALL CARDIAC CHAMBERS LV EF IS ONLY 6% NORMALVALVES MILD PERICARDIAL EFFUSION PACEMAKER IN RIGHT CARDIAC CHAMBERS SEVERE MITRAL VALVE REGURGITATION SEVERE PULMONARY HYPERTENSION RVSP IS 52 MM OF HG AND IS VERY HIGH
--- NOTE | 2024-12-28 18:58 | DVHPN2 ---
Subjective In bed resting Reviewed: H&P, Labs Changes from previous H/P or p: No Changes Eyes: No Pain, No Vision change, No Conjunctivae inflammation, No Eyelid inflammation, No Other, No Redness ENT: No Ear pain, No Ear discharge, No Nose pain, No Nose discharge, No Nose congestion, No Mouth pain, No Mouth swelling, No Throat pain, No Throat swelling, No Other Cardiovascular: Chest Pain; No Palpitations, No Orthopnea, No Paroxysmal Noc. Dyspnea, No Edema, No Lt Headedness, No Other Respiratory: Cough; No Dry; Shortness of breath; No SOB with excertion, No Wheezing, No Hemoptysis, No Pleuritic Pain, No Sputum, No Other Gastrointestinal: Nausea; No Vomiting, No Abdominal Pain, No Diarrhea, No Constipation, No Melena, No Hematochezia, No Other Genitourinary: No Dysuria, No Frequency, No Incontinence, No Hematuria, No Retention, No Other Musculoskeletal: No other, No neck pain, No shoulder pain, No arm pain, No back pain, No hand pain, No leg pain, No foot pain Skin: No Rash, No Lesions, No Jaundice, No Bruising, No Other Objective Vitals Vital Signs Date Time Temp Pulse Resp B/P (MAP) Pulse Ox O2 Delivery O2 Flow Rate FiO2 12/28/24 13:00 97.9 68 18 94/57 (69) 98 97.9 12/28/24 08:00 Room Air* 0 21 Intake/Output Intake and Output 12/28/24 07:00 Intake Total 150 ml Balance 150 ml Intake Oral 150 ml # Voids 1 General Appearance: Alert, Oriented X3 Lungs: Clear to auscultation Cardiovascular: Regular rate, Normal S1 Abdomen: Normal bowel sounds Medications Current Medications Medications Dose Ordered Sig/Brian Route Start Time Stop Time Status Last Admin Dose Admin Carvedilol 3.125 mg Q12HR PO 12/27/24 22:00 12/28/24 00:21 3.125 MG Atorvastatin Calcium 10 mg HS PO 12/27/24 22:00 12/28/24 00:21 10 MG Furosemide 40 mg DAILY IV 12/28/24 10:00 Famotidine 20 mg DAILY IV 12/28/24 10:00 12/28/24 09:35 20 MG Diagnostic Test (Pha) 1 strip ACHS 12/27/24 22:00 12/28/24 17:19 1 STRIP Insulin Human Regular ACHS SC 12/27/24 22:00 Dextrose 50 ml UD PRN IV 12/27/24 20:15 Sodium Chloride 10 ml Q8HR IV 12/27/24 22:00 12/28/24 14:00 10 ML Acetaminophen/ Hydrocodone Bitart 1 tab Q4HP PRN PO 12/27/24 20:15 Ondansetron HCl 4 mg Q4HP PRN IV 12/27/24 20:15 12/28/24 03:43 4 MG Docusate Sodium 100 mg BIDPRN PRN PO 12/27/24 20:15 Acetaminophen 650 mg Q6HP PRN PO 12/27/24 20:15 Nitroglycerin 0.4 mg Q5MINP PRN SL 12/27/24 22:15 Morphine Sulfate 2 mg Q30M PRN IV 12/27/24 22:15 Laboratory Results Laboratory Tests 12/28/24 08:55 Chemistry Test 12/28/24 08:55 Albumin 4.3 g/dL (3.2-4.8) Calcium Level 9.9 mg/dL (8.7-10.4) Total Protein 6.4 g/dL (5.7-8.2) LFT Test 12/28/24 08:55 Alanine Aminotransferase (ALT) 19 U/L (7-40) Alkaline Phosphatase 148 U/L (46-116) H Aspartate Amino Transferase (AST) 23 U/L (13-40) Total Bilirubin 3.0 mg/dL (0.2-1.0) H Assessment/Plan Assessment/Plan Acute chest pain Heart failure, unspecified Generalized weakness Acute exacerbation of congestive heart failure Acute respiratory distress Continue IV lasix Plan discussed with: Patient Date of Service: Dec 28, 2024 Billing Provider: OMAR SOLIS MD Common Visit Codes: [id number] INP/OBS CARE(HIGH) OMAR SOLIS MD Dec 28, 2024 18:58
[2024-12-28] MEDS: HYDROcodone-ACET 5/325MG TAB PO PRN (23:00)
[2024-12-29] VITALS (9 sets, daily range): BP systolic 92–111; BP diastolic 62–80; PULSE 70–78; RESP 16–18; TEMP 97.2–98; O2SAT 98–100
[2024-12-29] MEDS: NITROGLYCERIN 0.4 MG SL TAB SL PRN (11:10)
[2024-12-29] MEDS: MORPHINE SULFATE 4 MG/ML SYR/VIAL IV PRN (11:23)
--- NOTE | 2024-12-29 14:43 | DVHINCON2 ---
Date Seen: Dec 29, 2024 Referring Physician MD Sophie Reason for Consultation CHF History of Present Illness This is a 64-year-old man who presented to the emergency room with a chief complaint of chest pain. The patient reports he has chronic angina which has progressed during the past couple days and associated with PRINCE, PND, and increased fatigue. A 12 lead electrocardiogram revealed a sinus rhythm with an associated first-degree atrioventricular block, LBBB, and QTC at 507 ms. Serial troponin levels are negative. Significant past medical history includes a end-stage/nonischemic/dilated cardiomyopathy, presence of Bi-V AICD in 2018 (Biotronik), history of V-tach, hypertension, dyslipidemia, former polysubstance abuse, and medical noncompliance. Of note, per admission there is history of atrial fibrillation and coronary stent placement in the past nevertheless records reviewed in detail without such diagnoses. Past Medical History Past medical history reviewed. No other significant than mentioned above. Past Surgical History BiV ICD placement in 2018 Family History: FH: arthritis FH: cancer aunt, Onset:50's - 60 FH: diabetes mellitus G8 MOTHER, , Onset:Unknown FH: stroke G8 MOTHER, , Onset:Unknown FHx: heart disease Family history: Cardiovascular disease G8 MOTHER, , Onset:Unknown Family history: Hypertension G8 MOTHER, , Onset:Unknown Family History Family history reviewed. Social History Denies the use of illicit drugs, alcohol, or tobacco use. Allergies: Coded Allergies: Shellfish Allergy (Unverified Allergy, Severe, 09/11/23) CRAB Uncoded Allergies: CRAB (Allergy, Severe, 08/06/17) Home Meds Active Scripts Spironolactone (Aldactone) 25 Mg Tab, 1 TAB PO DAILY, #30 TAB 5 Refills Prov:FOIRELLA DEVINE MD 09/06/24 Bumetanide (Bumetanide) 2 Mg Tab, 1 TAB PO BID, #60 TAB 5 Refills Prov:FIORELLA DEVINE MD 09/06/24 Potassium Chloride (Potassium Chloride ER) 10 Meq Tab, 20 MEQ PO DAILY for 30 Days, #60 TAB Prov:MEME JAIME MD 04/30/24 Bumetanide (Bumetanide) 2 Mg Tab, 1 TAB PO BID for 30 Days, #60 TAB 1 Refill Prov:MEME JAIME MD 04/30/24 Amiodarone HCl (Amiodarone HCl) 200 Mg Tab, 200 MG PO Q12HR for 30 Days, #60 TAB Prov:ESTEVAN BRAN RESIDENT 02/07/24 Acetaminophen (Acetaminophen) 325 Mg Tab, 325 MG PO Q4HP PRN for 10 Days, #50 TAB Prov:ESTEVAN BRAN RESIDENT 02/07/24 Reported Medications Aspirin (Aspirin Low Dose) 81 Mg Tab, 1 DAILY 09/04/24 Mexiletine HCl (Mexiletine Hydrochloride) 150 Mg Cap, 1 09/04/24 Pantoprazole Sodium Sesquihydr (Pantoprazole Sodium) 40 Mg Tab, 40 MG PO DAILY, TAB 05/12/24 Simvastatin (Simvastatin) 10 Mg Tab, 10 MG PO DAILY, MG 05/12/24 Midodrine HCl (Midodrine Hydrochloride) 5 Mg Tab, 2 TAB PO TID, TAB 05/10/24 Cholecalciferol (VITAMIN D3) 2,000 Unit Tab, 1 TAB PO DAILY 01/09/24 Digoxin (Digoxin) 125 Mcg Tab, 1 TAB PO DAILY 01/09/24 Vericiguat (Verquvo) 10 Mg Tab, 1 TAB PO DAILY 01/09/24 Ivabradine Hydrochloride (Corlanor) 5 Mg Tab, 1 TAB PO BID 08/16/23 Spironolactone (Spironolactone) 25 Mg Tab, 1 TAB PO BID 05/15/23 Sacubitril-Valsartan (Entresto 24-26 mg) 1 Tab Tab, 1 TAB PO BID, TAB 05/15/23 Nitroglycerin (NTROSTAT SUBLINGUAL) 0.4 Mg Sl, 0.4 MG SL PRN, TAB *MAY REPEAT EVERY 5 MINUTES X 3 TOTAL IF NO RELIEF, INITIATE ANALGESIC THERAPY. NOTIFY PHYSICIAN *Do not crush. 05/15/23 Dapagliflozin Propanediol (Farxiga) 10 Mg Tab, 10 MG PO DAILY, TAB 05/15/23 Carvedilol (Carvedilol) 3.125 Mg Tab, 3.125 MG PO BID, MG 05/15/23 Aspirin (Aspir-Low) 81 Mg Tab, 81 MG PO DAILY, MG 05/15/23 Home Meds Home medications reviewed. Review of Systems Constitutional: No symptom reported Ears, Nose, & Throat: No symptom reported Eyes: No symptom reported Neurological: No symptoms reported Pulmonary/Respiratory: SOB, PRINCE, PND Cardiovascular: Chest pain Gastrointestinal: No symptom reported Genitourinary: No symptom reported Musculoskeletal: No symptom reported Skin: No symptom reported Psychiatric: No symptom reported Endocrine: No symptom reported Hemotologic/Lymphatic: No symptom reported Vital Signs Vital Signs Date Time Temp Pulse Resp B/P (MAP) Pulse Ox O2 Delivery O2 Flow Rate FiO2 12/29/24 13:00 97.7 71 18 107/77 (87) 98 97.7 12/29/24 08:05 Nasal Cannula* 3 32 Physical Exam General Appearance: Cooperative. Well developed. Well nourished. In no acute distress Head Exam: Normal inspection Neck Exam: Normal inspection. Non-tender. Normal alignment Pulmonary/Respiratory: Chest non-tender. Crackles to bilateral breath sounds Cardiovascular/Chest: Regular rate and rhythm. S1, S2. Sinus rhythm with LBBB, 1st degree AVB, QTc at 507 ms. No murmurs. No JVD. Peripheral Pulses: 2+ Radial (R). 2+ Radial (L). 2+ Pedal (R). 2+ Pedal (L) Abdominal Exam: Normal bowel sounds. Soft. Nontender. No hepatospenomegaly. No masses Ankle Exam: Negative ankle edema Lower extremities: Negative lower extremity edema Neuro/Mental Status: A&O x4. Coherent Thoughts/Psych: Normal thought pattern. Appropriate mood and affect. Good judgement and insight Appearance: In no acute distress Skin Exam: Normal inspection. Normal color. Warm. Dry Labs/Diagnostic Data Labs Test 12/29/24 11:47 12/28/24 08:55 12/27/24 16:41 12/27/24 13:44 Range/Units POC Glucose 105 70-106 mg/dl White Blood Count 4.2 L 4.4-10.8 10^3/uL Red Blood Count 3.89 L 4.5-5.90 10^6/uL Hemoglobin 12.8 L 13.5-17.5 g/dL Hematocrit 37.4 L 41.0-53.0 % Mean Corpuscular Volume 96.1 80.0-100.0 fL Mean Corpuscular Hemoglobin 32.8 H 28.0-32.0 pg Mean Corpuscular Hemoglobin Concent 34.2 32.0-36.0 g/dL Red Cell Distribution Width 17.3 H 11.8-14.3 % Platelet Count 167 140-450 10^3/uL Mean Platelet Volume 7.7 6.9-10.8 fL Neutrophils (%) (Auto) 66.0 37.0-80.0 % Lymphocytes (%) (Auto) 14.3 10.0-50.0 % Monocytes (%) (Auto) 15.5 H 0.0-12.0 % Eosinophils (%) (Auto) 3.4 0.0-7.0 % Basophils (%) (Auto) 0.8 0.0-2.0 % Neutrophils # (Auto) 2.8 1.6-8.6 10 ^3/uL Lymphocytes # (Auto) 0.6 0.4-5.4 10 ^3/uL Monocytes # (Auto) 0.7 0-1.3 10 ^3/uL Eosinophils # (Auto) 0.1 0-0.8 10 ^3/uL Basophils # (Auto) 0 0-0.2 10 ^3/uL Nucleated Red Blood Cells 0.4 % Sodium Level 140 136-145 mmol/L Potassium Level 3.6 3.5-5.1 mmol/L Chloride Level 104 98-107 mmol/L Carbon Dioxide Level 27 20-31 mmol/L Anion Gap 9 5-15 Blood Urea Nitrogen 18 9-23 mg/dL Creatinine 1.19 0.700-1.30 mg/dL Glomerular Filtration Rate Calc 69 >90 mL/min BUN/Creatinine Ratio 15.1 10.0-20.0 Serum Glucose 97 74-106 mg/dL Calcium Level 9.9 8.7-10.4 mg/dL Total Bilirubin 3.0 H 0.2-1.0 mg/dL Aspartate Amino Transferase (AST) 23 13-40 U/L Alanine Aminotransferase (ALT) 19 7-40 U/L Alkaline Phosphatase 148 H 46-116 U/L Total Protein 6.4 5.7-8.2 g/dL Albumin 4.3 3.2-4.8 g/dL Troponin I High Sensitivity 18 </=54 ng/L B-Type Natriuretic Peptide 2357.80 0-100 pg/mL Assessment End-stage/non-ischemic/dilated cardiomyopathy Acute on chronic decompensated HFrEF, NYHA class IV Presence of Bi-V ICD with left ventricular lead fracture (Biotronik) Pulmonary hypertension, severe Mitral regurgitation, severe History of V-tach (on amiodarone) Hyperlipidemia Former polysubstance abuse Medical noncompliance Dietary indiscretions Plan/Recommendation (Dr. Villeda) Echocardiogram reveals EF at 6% with remarkable dilated all cardiac chambers and RVSP 52 mmHg. Initiate GDMT for CHF and uptitrate as tolerated. Introduce metoprolol with optimal BP, held at this time. Initiate antiarrhythmic, amiodarone BID. On a previous admission a conversation was held with the pa albin in regards of a heart transplant for which he was referred but given his poor medical compliance, dietary indiscretions, lack of family support, and overall frailty he has been declined in the past to be candidate for such procedure. The patient is a hospice candidate, consider hospice care. We will sign off at this time. Thank you for allowing us to care for this patient. This medical document was created using an electronic medical record system with voice recognition software and computerized dictation system. Although this document has been carefully reviewed, there might still be some phonetic and typographical errors. Occasional wrong-word or ``sound-alike substitutions may have occurred due to the inherent limitations of voice recognition software. These areas are purely typographical due to imperfections of the software programs and do not reflect any compromise in the patient's medical care. Please read the chart carefully and recognize, using context, where these substitutions have occurred. Plan discussed with: Patient, Other NYHA Physical activity limitations: Class4(Severe)discomfort (w any activit,symptoms at rest) Date of Service: Dec 29, 2024 Billing Provider: BRIAN JUSTICE Cardiology Common Codes: [id number] INP/OBS CARE (High) BRIAN JUSTICE Dec 29, 2024 14:43
[2024-12-29] MEDS: LACTULOSE 20Gm/30ML SOLN PO ONE (15:35)
--- NOTE | 2024-12-29 17:33 | DVHPN2 ---
Subjective In bed resting Reviewed: H&P, Labs Changes from previous H/P or p: No Changes Eyes: No Pain, No Vision change, No Conjunctivae inflammation, No Eyelid inflammation, No Other, No Redness ENT: No Ear pain, No Ear discharge, No Nose pain, No Nose discharge, No Nose congestion, No Mouth pain, No Mouth swelling, No Throat pain, No Throat swelling, No Other Cardiovascular: Chest Pain; No Palpitations, No Orthopnea, No Paroxysmal Noc. Dyspnea, No Edema, No Lt Headedness, No Other Respiratory: Cough; No Dry; Shortness of breath; No SOB with excertion, No Wheezing, No Hemoptysis, No Pleuritic Pain, No Sputum, No Other Gastrointestinal: Nausea; No Vomiting, No Abdominal Pain, No Diarrhea, No Constipation, No Melena, No Hematochezia, No Other Genitourinary: No Dysuria, No Frequency, No Incontinence, No Hematuria, No Retention, No Other Musculoskeletal: No other, No neck pain, No shoulder pain, No arm pain, No back pain, No hand pain, No leg pain, No foot pain Skin: No Rash, No Lesions, No Jaundice, No Bruising, No Other Objective Vitals Vital Signs Date Time Temp Pulse Resp B/P (MAP) Pulse Ox O2 Delivery O2 Flow Rate FiO2 12/29/24 13:00 97.7 71 18 107/77 (87) 98 97.7 12/29/24 08:05 Nasal Cannula* 3 32 Intake/Output Intake and Output 12/29/24 07:00 Intake Total 1940 ml Output Total 900 ml Balance 1040 ml Intake Oral 1940 ml Output Urine Total 900 ml # Voids 1 General Appearance: Alert, Oriented X3 Lungs: Clear to auscultation Cardiovascular: Regular rate, Normal S1 Abdomen: Normal bowel sounds Medications Current Medications Medications Dose Ordered Sig/Brian Route Start Time Stop Time Status Last Admin Dose Admin Atorvastatin Calcium 10 mg HS PO 12/27/24 22:00 12/28/24 22:54 10 MG Famotidine 20 mg DAILY IV 12/28/24 10:00 12/29/24 09:29 20 MG Diagnostic Test (Pha) 1 strip ACHS 12/27/24 22:00 12/29/24 11:30 1 STRIP Insulin Human Regular ACHS SC 12/27/24 22:00 Dextrose 50 ml UD PRN IV 12/27/24 20:15 Sodium Chloride 10 ml Q8HR IV 12/27/24 22:00 12/29/24 13:45 10 ML Acetaminophen/ Hydrocodone Bitart 1 tab Q4HP PRN PO 12/27/24 20:15 12/28/24 23:00 1 TAB Ondansetron HCl 4 mg Q4HP PRN IV 12/27/24 20:15 12/28/24 20:51 4 MG Docusate Sodium 100 mg BIDPRN PRN PO 12/27/24 20:15 Acetaminophen 650 mg Q6HP PRN PO 12/27/24 20:15 Morphine Sulfate 2 mg Q30M PRN IV 12/27/24 22:15 12/29/24 11:23 2 MG Bumetanide 1 mg BIDD IV 12/29/24 18:00 Amiodarone HCl 200 mg Q12HR PO 12/29/24 22:00 Spironolactone 12.5 mg DAILY PO 12/30/24 10:00 Sacubitril/ Valsartan 0.5 tab BID PO 12/29/24 22:00 Empaglifozin 10 mg DAILY PO 12/30/24 10:00 Lactulose 30 ml DAILY PO 12/30/24 10:00 Laboratory Results Laboratory Tests 12/28/24 08:55 Assessment/Plan Assessment/Plan Acute chest pain Heart failure, unspecified Generalized weakness Acute exacerbation of congestive heart failure Acute respiratory distress Continue IV lasix cardiology consulted Plan discussed with: Patient My Orders Orders - OMAR SOLIS MD Procedure Category Date Status Time Electrocardigram EKG 12/29/24 Logged 11:33 * Cardiology Consult CONS 12/29/24 Transmitted 11:57 Lactulose Oral PHA 12/30/24 In Process 10:00 Date of Service: Dec 29, 2024 Billing Provider: OMAR SOLIS MD Common Visit Codes: [id number] INP/OBS CARE(HIGH) OMAR SOLIS MD Dec 29, 2024 17:33
[2024-12-29] MEDS: BUMETANIDE 1mg/4ml VIAL (0.25mg/ml) IV SCH (17:44)
[2024-12-29] MEDS: METOCLOPRAMIDE HCL 10 MG TAB PO ONE (20:59)
[2024-12-29] MEDS: AMIODARONE HCL 200 MG TAB PO SCH (23:15)
[2024-12-29] MEDS: SACUBITRIL-VALSARTAN 24mg/26mg TAB PO SCH (23:15)
[2024-12-29] MEDS: MELATONIN 5 MG TAB PO PRN (23:16)
[2024-12-30 01:00] VITALS: BP 106/75; PULSE 72; RESP 18; TEMP 98.1; O2SAT 99
[2024-12-30 05:00] VITALS: BP 111/70; PULSE 67; RESP 18; TEMP 98.1; O2SAT 99
[2024-12-30 06:44] LABS: Anion Gap 11 (5-15); Carbon Dioxide 24 mmol/L (20-31); Chloride 101 mmol/L (98-107); Potassium 3.6 mmol/L (3.5-5.1); Sodium 136 mmol/L (136-145)
[2024-12-30 06:45] LABS: Calcium 9.1 mg/dL (8.7-10.4)
[2024-12-30 06:50] LABS: BUN/Creatinine Ratio 11.4 (10.0-20.0); Blood Urea Nitrogen 15 mg/dL (9-23)
[2024-12-30 06:53] LABS: Glucose 67 mg/dL (74-106)
[2024-12-30 08:05] VITALS: PULSE 70; RESP 18; O2SAT 100
[2024-12-30 08:30] VITALS: BP 106/75; PULSE 69; PULSE 70; RESP 18; TEMP 97.6; O2SAT 100
--- NOTE | 2024-12-30 09:06 | ECG ---
[facility] Test Date: 2024-12-29 Test Time: 11:03:37 Pat Name: SUHAIL VILLALTA Department: Respiratoy Room: 0214T A Gender: M Transfer Station Attendant: BIB : 1960 Requested By: OMAR SOLIS Order Number: [id number] Reading MD: Adrián Mock Measurements Intervals [place] Rate: 74 P: 12 NE: 233 QRS: -70 QRSD: 156 T: 98 QT: 457 QTc: 507 Interpretive Statements Sinus rhythm Prolonged NE interval Left bundle branch block Electronically Signed On 12-31-2024 20:20:23 PDT by Adrián Mock Please click the below link to view image of tracing.
[2024-12-30] MEDS: LACTULOSE 20Gm/30ML SOLN PO SCH (09:33)
[2024-12-30] MEDS: EMPAGLIFLOZIN 10 MG TAB PO SCH (09:34)
[2024-12-30] MEDS: SPIRONOLACTONE 25 MG TAB PO SCH (09:35)
[2024-12-30 14:11] VITALS: BP 100/73; PULSE 68; RESP 16; TEMP 97.3; O2SAT 100
--- NOTE | 2025-01-06 04:40 | DVHDS2 ---
Discharge Summary Date of Admission Dec 27, 2024 at 22:07 Date of Discharge: Dec 30, 2024 Labs/Diagnostic Data: Laboratory Results Test 12/30/24 10:57 12/30/24 05:17 12/28/24 08:55 12/27/24 16:41 POC Glucose 113 mg/dl (70-106) Sodium Level 136 mmol/L (136-145) Potassium Level 3.6 mmol/L (3.5-5.1) Chloride Level 101 mmol/L (98-107) Carbon Dioxide Level 24 mmol/L (20-31) Anion Gap 11 (5-15) Blood Urea Nitrogen 15 mg/dL (9-23) Creatinine 1.32 mg/dL (0.700-1.30) Glomerular Filtration Rate Calc 61 mL/min (>90) BUN/Creatinine Ratio 11.4 (10.0-20.0) Serum Glucose 67 mg/dL (74-106) Calcium Level 9.1 mg/dL (8.7-10.4) White Blood Count 4.2 10^3/uL (4.4-10.8) Red Blood Count 3.89 10^6/uL (4.5-5.90) Hemoglobin 12.8 g/dL (13.5-17.5) Hematocrit 37.4 % (41.0-53.0) Mean Corpuscular Volume 96.1 fL (80.0-100.0) Mean Corpuscular Hemoglobin 32.8 pg (28.0-32.0) Mean Corpuscular Hemoglobin Concent 34.2 g/dL (32.0-36.0) Red Cell Distribution Width 17.3 % (11.8-14.3) Platelet Count 167 10^3/uL (140-450) Mean Platelet Volume 7.7 fL (6.9-10.8) Neutrophils (%) (Auto) 66.0 % (37.0-80.0) Lymphocytes (%) (Auto) 14.3 % (10.0-50.0) Monocytes (%) (Auto) 15.5 % (0.0-12.0) Eosinophils (%) (Auto) 3.4 % (0.0-7.0) Basophils (%) (Auto) 0.8 % (0.0-2.0) Neutrophils # (Auto) 2.8 10 ^3/uL (1.6-8.6) Lymphocytes # (Auto) 0.6 10 ^3/uL (0.4-5.4) Monocytes # (Auto) 0.7 10 ^3/uL (0-1.3) Eosinophils # (Auto) 0.1 10 ^3/uL (0-0.8) Basophils # (Auto) 0 10 ^3/uL (0-0.2) Nucleated Red Blood Cells 0.4 % Total Bilirubin 3.0 mg/dL (0.2-1.0) Aspartate Amino Transferase (AST) 23 U/L (13-40) Alanine Aminotransferase (ALT) 19 U/L (7-40) Alkaline Phosphatase 148 U/L (46-116) Total Protein 6.4 g/dL (5.7-8.2) Albumin 4.3 g/dL (3.2-4.8) Troponin I High Sensitivity 18 ng/L (</=54) Test 12/27/24 13:44 B-Type Natriuretic Peptide 2357.80 pg/mL (0-100) Other Laboratory Tests 12/30/24 05:17 12/28/24 08:55 Brief Hx & Hospital Course: 64-year-old male with multiple past medical history including AFib, Coronary artery disease, CHF, DM, PE, and hypertension who presented to [facility] ED with complaint of chest pain. Patient reports that he has been experiencing left sided chest pain rating 8/10 numeric scale, with associated nausea, cough, and shortness of breaths for the past 1 today. Patient was seen and evaluated in the ED, laboratory data shows WBC 4.8, platelets 194, sodium 137, potassium 3.8, BUN 20, creatinine 1.21, glucose 110, total bilirubin 2.1, troponin 18, BNP 2357.80, blood pressure 124/80, heart rate 80, temperature 97.6 F, O2 saturation 94% on oxygen. Please see medication orders section in the computer. On my assessment, patient denied chest pain at this moment, no headache, no dizziness, currently on oxygen, no diaphoresis, no diarrhea, no nausea, no vomiting, no fever, no chills. Patient was admitted for further evaluation and medical management. He was diuresed with IV lasix and did well, weaned off oxygen seen by cardiology Condition at Discharge: Good Final Diagnosis/Problems List Acute Systolic Heart Failure Exacerbation RADHA due to VMN acute hypoxic respiratory failure Discharge Disposition: Home Discharge Instruct/Medications Diet: Regular Activity: No Restrictions, As Tolerated Follow Up/Referral: PCP in 7 days Medications: same home medications Discharge Statement: "Patient was advised to return to the ER or call 911 if any headaches, dizziness, shortness of breath, chest pain, abdominal pain, bleeding, fevers, or worsening of medical condition. Patient was counseled about treatment plan, medications, possible side effects, patientverbalized understanding. All questions were answered to the best of my ability. This discharge took greater then 30 minutes in planning, reviewing documentation, counseling the patient, and discussing with other team members." ASSESSMENT ASSESSMENT Assessment Acute Systolic Heart Failure Exacerbation Date of Service: Dec 30, 2024 Billing Provider: OMAR SOLIS MD Common Visit Codes: [id number] DISCH DAY >30min OMAR SOLIS MD Jan 06, 2025 04:40
== END 2024-12-30 15:01 | disposition home or self-care (01) | DRG 133 ==
LOC: ER 13:33 → OVERFLOW 22:07 → TELE-CENTR 22:08
PROVIDERS: ADMIT Hospitalist; ATTEND Hospitalist
DX: J96.01 Acute respiratory failure with hypoxia (principal); N17.0 Acute kidney failure with tubular necrosis; I50.23 Acute on chronic systolic (congestive) heart failure; I11.0 Hypertensive heart disease with heart failure; I27.20 Pulmonary hypertension, unspecified; I42.0 Dilated cardiomyopathy; I34.0 Nonrheumatic mitral (valve) insufficiency; E11.9 Type 2 diabetes mellitus without complications; T82.110A Breakdown (mechanical) of cardiac electrode, initial encounter; E78.5 Hyperlipidemia, unspecified; I48.91 Unspecified atrial fibrillation; I25.119 Atherosclerotic heart disease of native coronary artery with unspecified angina pectoris; Z95.810 Presence of automatic (implantable) cardiac defibrillator; Z95.5 Presence of coronary angioplasty implant and graft; Z91.199 Patient's noncompliance with other medical treatment and regimen due to unspecified reason; Z87.891 Personal history of nicotine dependence; Z83.3 Family history of diabetes mellitus; Z82.49 Family history of ischemic heart disease and other diseases of the circulatory system; Z82.3 Family history of stroke; Z91.013 Allergy to seafood; Y71.2 Prosthetic and other implants, materials and accessory cardiovascular devices associated with adverse incidents; Z79.82 Long term (current) use of aspirin; Z79.899 Other long term (current) drug therapy
CPT/HCPCS: 36415; 71045; 80048; 80053; 82962; 83880; 84484; 85025; 93005; 93306; 96374; 96375; G0378; J2405; J3490

== ENCOUNTER 2025-03-05 16:34 | Inpatient (IN) | payer MEDICAID ==
[~2025-03-05] VITALS: Ht 182.9 cm; Wt 80.2 kg
--- NOTE | 2025-03-05 17:01 | ED.PDOC ---
HPI Comments HPI: This is a 65 year old male MARY BETH presenting to the ED with chief complaint of chest pain. Patient reports that he has been experiencing left sided chest pain for the past 2 days, worsening over time. Patient relays that he was seen recently at [facility] for the same complaint. Patient states that he uses O2 at home as needed. Patient notes compliance with all of his medications. Patient denies any SOB, dizziness, headache, N/V, fever, or chills. Initial Vitals BP: HR: RR: O2: Temp: Past Medical History: CHF, HLD, HTN, PE, DM, CAD Past Surgical History: Pacemaker, PTCA Social History: Denies ETOH, smoking, and drug use. Medications: Reviewed Allergies: VIDAL VILLALTA: GENARO HPI: Poor Historian. REVIEW OF SYSTEMS: CONSTITUTIONAL: Denies acute: fever, diaphoresis, chills, HEAD: Denies acute: headache, photophobia Eyes: Denies acute: Double vision, vision loss, eye pain, eye discharge. EARS: Denies acute: tinnitus, hearing loss, ear discharge, ear pain, THROAT: Denies acute: sore throat, swelling, difficulty swallowing , pain with swallowing, change in voice. NECK: Denies acute: neck pain, neck swelling, stiff neck. HEART: Denies acute : palpitations, LUNGS: Denies acute: , wheezing, cough, hemoptysis ABDOMEN: Denies acute: Nausea, Vomiting, diarrhea, melena , hematemesis, hematochezia SKIN: Denies acute: rash, redness, lesions, itchiness. EXTREMITIES: Denies acute: calf pain, numbness, tingling, weakness, denies pain in extremity. Denies acute: Low back pain. Neuro: Denies acute: focal neurological deficit, motor or sensory focal neurological deficit, tremors, seizure like activity, confusion, dizziness, change in mental status, loss of bowel or bladder function, cauda equina like symptoms. : Denies acute: dysuria, hematuria, flank pain, increase in urinary frequency. PSYCH: Denies acute: hallucination, suicidal ideation, homicidal ideation. PHYSICAL EXAM: General: ----[id number]----acute distress, awake and alert. Head: normocephalic, atraumatic. Neck: supple, trachea is midline, no swelling. Throat: Normal phonation. Eyes:, no erythema, no purulent discharge, no proptosis, no icterus. Heart: regular rate, regular rhythm, no significant murmur appreciated. Lungs: no apparent respiratory distress, Able to speak in full sentences. No wheezing, no rhonchi, no crackles. No stridors Clear to auscultation bilaterally. Abdomen: non tender to palpation, non distended, soft, no guarding, no rebound, + bowel sounds. Neuro: Awake, Alert, oriented to name, self, situation, follows commands GCS=15. Speech is normal. Skin: no petechia, no purpura, no cyanosis, non-pale, not jaundice. Lower extremities: --no - Pitting edema no deformity, no focal swelling, no calf TTP. Makes eye contact. moves all four extremities. Face: no apparent facial droop. Ambulating in the ED independently. ED COURSE: DISCLAIMER: This medical document was created using an electronic medical record system with voice recognition software and computerized dictation system. Although this document has been carefully reviewed, there might still be some phonetic and typographical errors. Occasional wrong-word or "sound-alike" substitutions may have occurred due to the inherent limitations of voice recognition software. These areas are purely typographical due to imperfections of the software programs and do not reflect any compromise in the patient's medical care. Please read the chart carefully and recognize, using context, where these substitutions have occurred. Chief Complaint: Chest Pain Time Seen by MD: 16:57 Primary Care Provider: GABRIELA Reviewed Notes: Medications, Allergies Allergies: Coded Allergies: Shellfish Allergy (Unverified Allergy, Severe, 09/11/23) CRAB Uncoded Allergies: CRAB (Allergy, Severe, 08/06/17) Home Meds Active Scripts Spironolactone (Aldactone) 25 Mg Tab, 1 TAB PO DAILY, #30 TAB 5 Refills Prov:FIORELLA DEVINE MD 09/06/24 Bumetanide (Bumetanide) 2 Mg Tab, 1 TAB PO BID, #60 TAB 5 Refills Prov:FIORELLA DEVINE MD 09/06/24 Potassium Chloride (Potassium Chloride ER) 10 Meq Tab, 20 MEQ PO DAILY for 30 Days, #60 TAB Prov:MEME JAIME MD 04/30/24 Bumetanide (Bumetanide) 2 Mg Tab, 1 TAB PO BID for 30 Days, #60 TAB 1 Refill Prov:MEME JAIME MD 04/30/24 Amiodarone HCl (Amiodarone HCl) 200 Mg Tab, 200 MG PO Q12HR for 30 Days, #60 TAB Prov:ESTEVAN BRAN RESIDENT 02/07/24 Acetaminophen (Acetaminophen) 325 Mg Tab, 325 MG PO Q4HP PRN for 10 Days, #50 TAB Prov:ESTEVAN BRAN RESIDENT 02/07/24 Reported Medications Aspirin (Aspirin Low Dose) 81 Mg Tab, 1 DAILY 09/04/24 Mexiletine HCl (Mexiletine Hydrochloride) 150 Mg Cap, 1 09/04/24 Pantoprazole Sodium Sesquihydr (Pantoprazole Sodium) 40 Mg Tab, 40 MG PO DAILY, TAB 05/12/24 Simvastatin (Simvastatin) 10 Mg Tab, 10 MG PO DAILY, MG 05/12/24 Midodrine HCl (Midodrine Hydrochloride) 5 Mg Tab, 2 TAB PO TID, TAB 05/10/24 Cholecalciferol (VITAMIN D3) 2,000 Unit Tab, 1 TAB PO DAILY 01/09/24 Digoxin (Digoxin) 125 Mcg Tab, 1 TAB PO DAILY 01/09/24 Vericiguat (Verquvo) 10 Mg Tab, 1 TAB PO DAILY 01/09/24 Ivabradine Hydrochloride (Corlanor) 5 Mg Tab, 1 TAB PO BID 08/16/23 Spironolactone (Spironolactone) 25 Mg Tab, 1 TAB PO BID 05/15/23 Sacubitril-Valsartan (Entresto 24-26 mg) 1 Tab Tab, 1 TAB PO BID, TAB 05/15/23 Nitroglycerin (NTROSTAT SUBLINGUAL) 0.4 Mg Sl, 0.4 MG SL PRN, TAB *MAY REPEAT EVERY 5 MINUTES X 3 TOTAL IF NO RELIEF, INITIATE ANALGESIC THERAPY. NOTIFY PHYSICIAN *Do not crush. 05/15/23 Dapagliflozin Propanediol (Farxiga) 10 Mg Tab, 10 MG PO DAILY, TAB 05/15/23 Carvedilol (Carvedilol) 3.125 Mg Tab, 3.125 MG PO BID, MG 05/15/23 Aspirin (Aspir-Low) 81 Mg Tab, 81 MG PO DAILY, MG 05/15/23 Information Source: Patient, Emergency Med Personnel Mode of Arrival: EMS Prehospital treatment: None Was a procedure done? Was a procedure done?: No CP Differential Dx Differential Diagnosis: N/A Differential Diagnosis: Other (Her chest pain) X-Ray, Labs, Meds, VS Vital Signs Date Time Temp Pulse Resp B/P (MAP) Pulse Ox O2 Delivery O2 Flow Rate FiO2 03/05/25 17:42 88 03/05/25 16:41 98.5 90 22 124/87 100 98.5 03/05/25 16:37 90 Lab Test 03/05/25 18:08 03/05/25 17:10 Range/Units Troponin I High Sensitivity Pending 21 </=54 ng/L B-Type Natriuretic Peptide Pending White Blood Count 6.4 4.4-10.8 10^3/uL Red Blood Count 4.36 L 4.5-5.90 10^6/uL Hemoglobin 14.1 13.5-17.5 g/dL Hematocrit 41.2 41.0-53.0 % Mean Corpuscular Volume 94.5 80.0-100.0 fL Mean Corpuscular Hemoglobin 32.3 H 28.0-32.0 pg Mean Corpuscular Hemoglobin Concent 34.2 32.0-36.0 g/dL Red Cell Distribution Width 18.7 H 11.8-14.3 % Platelet Count 210 140-450 10^3/uL Mean Platelet Volume 8.5 6.9-10.8 fL Neutrophils (%) (Auto) 37.0-80.0 % Lymphocytes (%) (Auto) 10.0-50.0 % Monocytes (%) (Auto) 0.0-12.0 % Basophils (%) (Auto) 0.0-2.0 % Neutrophils # (Auto) 1.6-8.6 10 ^3/uL Lymphocytes # (Auto) 0.4-5.4 10 ^3/uL Monocytes # (Auto) 0-1.3 10 ^3/uL Differential Total Cells Counted Pending Neutrophils % (Manual) Pending Band Neutrophils % (Manual) Pending Lymphocytes % (Manual) Pending Monocytes % (Manual) Pending Eosinophils % (Manual) Pending Basophils % (Manual) Pending Metamyelocytes % (manual) Pending Myelocytes % (Manual) Pending Promyelocytes % (Manual) Pending Blast Cells % (Manual) Pending Reactive Lymphocytes Pending Platelet Estimate Pending Sodium Level 132 L 136-145 mmol/L Potassium Level 3.7 3.5-5.1 mmol/L Chloride Level 93 L 98-107 mmol/L Carbon Dioxide Level 27 20-31 mmol/L Anion Gap 12 5-15 Blood Urea Nitrogen 24 H 9-23 mg/dL Creatinine 1.52 H 0.700-1.30 mg/dL Glomerular Filtration Rate Calc 51 >90 mL/min BUN/Creatinine Ratio 15.8 10.0-20.0 Serum Glucose 95 74-106 mg/dL Calcium Level 9.7 8.7-10.4 mg/dL Total Bilirubin 4.2 H 0.2-1.0 mg/dL Aspartate Amino Transferase (AST) 41 H 13-40 U/L Alanine Aminotransferase (ALT) 30 7-40 U/L Alkaline Phosphatase 212 H 46-116 U/L Total Protein 7.1 5.7-8.2 g/dL Albumin 4.7 3.2-4.8 g/dL [place] [id number] Ph: [phone] DIAGNOSTIC IMAGING Diagnostic Imaging Report : [id number] Signed PATIENT: SUHAIL VILLALTA ACCT: [id number] UNIT: [id number] : 1960 LOC: ER ROOM / BED: / AGE / SEX: 65 / M ADM STATUS: REG ER SERVICE 1648 ORDERING PHYSICIAN: JESSI NARVAEZ DO PROCEDURE(s): CXRP - CHEST PORTABLE REASON: CP ORDER NUMBER(s): [id number], ACCESSION NUMBER(s): [id number] AP portable chest CLINICAL INDICATION: CP Comparison study 12/27/2024 FINDINGS: The heart size is enlarged. There are pacer leads in the heart. Slight prominence of the bronchovascular markings IMPRESSION: 1. Question of mild or early congestive changes ATED BY: DEVON HERCULES MD DICTATED DATE/TIME: 03/05/251713 SIGNED BY: DEVON HERCULES MD SIGNED DATE/TIME: 03/05/251713 CC: Time of 1ST Reevaluation: 17:55 Reevaluation 1ST: Unchanged Time of 2ND Reevaluation: 18:26 (As of now, 2nd troponin and BNP are still pending) Patient Education/Counseling: Diagnosis, Treatment Family Education/Counseling: No Family Present Assigned to Dr. Dr. Alomnte. Patient will be admitted to the hospitalist team for further evaluation and treatment his chest pain with high-risk and high heart score. CT scan of abdomen and pelvis is still pending patient has a slightly elevated bilirubin compared to his previous visits. Departure 1 Departure Time of Disposition: 18:12 Impression: Primary Impression: Chest pain Additional Impression: Hyperbilirubinemia Disposition: ADMITTED INPATIENT Admit to: [facility] Condition: Guarded Discharged With: Self Critical Care Note Critical Care Time?: No Heart Score Heart Score: Heart Score Response (Comments) Value History Highly Suspicious 2 EKG Repolarization Disturb 1 Age 45-64 1 Risk Factors >3 or Hx ASHD 2 Total 6 I personally scribed for JESSI NARVAEZ DO ([email or web address]) on 03/05/25 at 17:01. Electronically submitted by Bk Gaines ([email or web address]). JESSI NARVAEZ DO Mar 05, 2025 17:01
--- NOTE | 2025-03-05 17:17 | DVH ---
AP portable chest CLINICAL INDICATION: CP Comparison study 12/27/2024 FINDINGS: The heart size is enlarged. There are pacer leads in the heart. Slight prominence of the b ronchovascular markings IMPRESSION: 1. Question of mild or early congestive changes
[2025-03-05 18:01] LABS: Alanine Aminotransferase 30 U/L (7-40); Albumin 4.7 g/dL (3.2-4.8); Anion Gap 12 (5-15); BUN/Creatinine Ratio 15.8 (10.0-20.0); Calcium 9.7 mg/dL (8.7-10.4); Carbon Dioxide 27 mmol/L (20-31); Glucose 95 mg/dL (74-106); Potassium 3.7 mmol/L (3.5-5.1); Total Protein 7.1 g/dL (5.7-8.2)
[2025-03-05 18:03] LABS: Alkaline Phosphatase 212 U/L (46-116); Bilirubin, Total 4.2 mg/dL (0.2-1.0); Blood Urea Nitrogen 24 mg/dL (9-23); Chloride 93 mmol/L (98-107); Sodium 132 mmol/L (136-145)
[2025-03-05 18:10] LABS: Hematocrit 41.2 % (41.0-53.0); Hemoglobin 14.1 g/dL (13.5-17.5); Mean Corpuscular Hemoglobin 32.3 pg (28.0-32.0); Mean Corpuscular Volume 94.5 fL (80.0-100.0)
[2025-03-05] MEDS: FUROSEMIDE 40 MG/4 ML VIAL IV ONE (18:49)
[2025-03-05 18:59] LABS: Total Cells Counted 100.0 (100)
--- NOTE | 2025-03-05 19:13 | DVH ---
Exam: CT CT AB PEL WO CON-NO ORAL OR IV History: cp Comparison Study: CT CHST AB PEL WO CON-NO IV/ORAL on DOS: 06/20/24, [facility] on DOS: 07/30/22 TECHNIQUE: Multidetector CT of the abdomen and pelvis was performed from lung bases to pubic symphysi s. Imaging was performed without IV contrast. Axial, coronal, and sagittal multiplanar reformats were obtained from the axial data set by the technologist. RADIATION DOSE: DLP 501.21 mGy.cm; CTDI vol 9.54 mGy. Findings: Lungs: The lung bases are clear. Heart: Cardiomegaly. Liver: Unremarkable. Gallbladder: Unremarkable. Spleen: Unremarkable Pancreas: Unremarkable Adrenals: Unremarkable Kidneys: Bilateral perinephric sweat. Unremarkable GI tract: Unremarkable : Unremarkable. Vasculature: Mild aortoiliac atherosclerosis. Lymphadenopathy: Absent Peritoneum: Trace pelvic ascites. Mild ruthann mesentery. Musculoskeletal: Mild multilevel degenerative changes of the thoracolumbar spine. Grade 1 anterolisth esis of L5 on S1. Soft tissues: Unremarkable Impression: 1. No acute abdominopelvic abnormalities. 2. Mild sclerosing mesenteritis. 3. Trace pelvic ascites, nonspecific.
[2025-03-05 19:19] LABS: INR 1.96 (0.9-1.15); Partial Thromboplastin Time 33.0 SEC (24.5-34.5); Prothrombin Time 19.4 sec (9.3-11.8)
[2025-03-05 19:28] LABS: Lactic Acid w/Reflex 3.5 mmol/L (0.4-2.0)
[2025-03-05] MEDS ORDERED: NITROGLYCERIN 0.4 MG SL TAB SL PRN (19:30)
[2025-03-05] MEDS ORDERED: ONDANSETRON HCL 4 MG/2 ML VIAL IV PRN (19:30)
[2025-03-05] MEDS ORDERED: MORPHINE SULFATE INJ 2 MG/ml SYRG IV PRN (19:30)
[2025-03-05] MEDS ORDERED: ACETAMINOPHEN 325 MG TAB PO PRN (19:30)
--- NOTE | 2025-03-05 19:46 | DVHHP2 ---
History of Present Illness Reason for Visit: Chest pain History of Present Illness 65-year-old male presents for evaluation of chest pain. Patient endorses a two day history of left-sided sharp chest pain with associated shortness for breath and nausea. No fever or chills. No cough. No other acute complaints reported. Past Medical History Hypertension, pulmonary embolism, diabetes mellitus, CAD, dyslipidemia, CHF Past Surgical History PTCA, pacemaker Family History Noncontributory Smoke: No ALCOHOL: none Drugs: None Lives: with Family Review of Systems Review of Systems Review of systems are currently negative otherwise addressed in HPI. Allergies: Coded Allergies: Shellfish Allergy (Unverified Allergy, Severe, 09/11/23) CRAB Uncoded Allergies: CRAB (Allergy, Severe, 08/06/17) Medications Current Medications Medications Dose Ordered Sig/Brian Route Start Time Stop Time Status Last Admin Dose Admin Furosemide 20 mg BIDD IV 03/06/25 06:00 UNV Aspirin 81 mg DAILY PO 03/06/25 10:00 UNV Amiodarone HCl 200 mg Q12HR PO 03/05/25 22:00 UNV Carvedilol 3.125 mg Q12HR PO 03/05/25 22:00 UNV Digoxin 0.125 mg DAILY PO 03/06/25 10:00 UNV Sacubitril/ Valsartan 1 tab BID PO 03/05/25 22:00 UNV Atorvastatin Calcium 10 mg HS PO 03/05/25 22:00 UNV Spironolactone 25 mg BIDD PO 03/06/25 06:00 UNV Acetaminophen/ Hydrocodone Bitart 1 tab Q4HP PRN PO 03/05/25 19:30 UNV Ondansetron HCl 4 mg Q4HP PRN IV 03/05/25 19:30 UNV Acetaminophen 650 mg Q6HP PRN PO 03/05/25 19:30 UNV Nitroglycerin 0.4 mg Q5MINP PRN SL 03/05/25 19:30 UNV Morphine Sulfate 2 mg Q30M PRN IV 03/05/25 19:30 UNV Exam Vital Signs Vital Signs Date Time Temp Pulse Resp B/P (MAP) Pulse Ox O2 Delivery O2 Flow Rate FiO2 03/05/25 19:00 92 18 135/86 (102) 98 03/05/25 17:00 97.7 97.7 Exam Gen: 65-year-old male in mild distress Skin: Warm, dry, normal color and texture, no rash. HEENT: Normocephalic atraumatic, mucous membranes moist and pink. Neck: Cervical and supraclavicular nodes normal without enlargement, trachea is midline, thyroid gland is normal without masses. Pulmonary: Clear to auscultation and percussion bilaterally. Cardiac: Regular rate and rhythm. No murmur Abdomen: Soft, nontender, nondistended, bowel sounds present all 4 quadrants, no guarding, no rigidity, no organomegaly. Extremities: No cyanosis, clubbing, no edema Neuro: Cranial nerves II through XII grossly intact, normal affect and speech, no focal motor deficits. Labs/Xrays ORDERING PHYSICIAN: SAM SMITH DNP PROCEDURE(s): [facility] - ECHO 2D MODE CARDIAC DOP REASON: CHF exacerbation, unspecified ORDER NUMBER(s): [id number], ACCESSION NUMBER(s): [id number] APPROVED REPORT EXAM: Two-dimensional and M-mode echocardiogram with Doppler and color Doppler. Blood Pressure: 108/65 mmHg INDICATION CHF Exacerbation Surgery/Intervention Pacemaker: RISK FACTORS Height: 6', Weight: 190 DIMENSIONS LVDd 7.3 (3.8-5.7cm) LA (2D) 5.7 (1.9-4.0cm) Aortic Root 3.3 (2.0- 3.7cm) LVDs 7.1 (2.5-4.0cm) LA (MM) (1.9-4.0cm) Aortic Cusp Exc 1.8 (1.5- 2.0cm) EF (%) 6.0 (55-70%) Rt. Atrium 6.0 (1.9-4.0cm) Asc. Aorta cm IVSd 1.1 (0.7-1.1cm) RV (D) (1.8-2.4cm) PWd 1.3 (0.7-1.1cm) Mitral Valve Mitral Mitral Stenosis E wave 0.90m/s MV Mean GR. mmHg A wave 0.40m/s MV Peak GR. mmHg E/A ratio 2.3 2D MVA cm2 Aortic Valve Aortic Valve Aortic Stenosis V1 0.30m/s AO Mean GR. 2mmHg V2 0.80m/s AO Peak GR. 3mmHg LVOT Diameter 2.4 (1.8-2.4cm) Doppler SYEDA 1.70cm2 Pulmonic Valve V2 0.30m/s Tricuspid Valve TR Velocity 3.20m/s RVSP 52mmHg Conclusion REMARKABLY DILATED ALL CARDIAC CHAMBERS SEVERE HYPOKINESIS OF ALL CARDIAC CHAMBERS LV EF IS ONLY 6% NORMALVALVES MILD PERICARDIAL EFFUSION PACEMAKER IN RIGHT CARDIAC CHAMBERS SEVERE MITRAL VALVE REGURGITATION SEVERE PULMONARY HYPERTENSION RVSP IS 52 MM OF HG AND IS VERY HIGH SIGNED BY: CHAITANYA CULP MD SIGNED DATE/TIME: 12/28/24 1526 ORDERING PHYSICIAN: JESSI NARVAEZ DO PROCEDURE(s): CXRP - CHEST PORTABLE REASON: CP ORDER NUMBER(s): [id number], ACCESSION NUMBER(s): [id number] AP portable chest CLINICAL INDICATION: CP Comparison study 12/27/2024 FINDINGS: The heart size is enlarged. There are pacer leads in the heart. Slight prominence of the bronchovascular markings IMPRESSION: 1. Question of mild or early congestive changes RING PHYSICIAN: JESSI NARVAEZ DO PROCEDURE(s): ABPL - CT AB PEL WO CON-NO ORAL OR IV REASON: ORDER NUMBER(s): [id number], ACCESSION NUMBER(s): [id number] Exam: CT CT AB PEL WO CON-NO ORAL OR IV History: cp Comparison Study: CT CHST AB PEL WO CON-NO IV/ORAL on DOS: 06/20/24, [facility] on DOS: 07/30/22 TECHNIQUE: Multidetector CT of the abdomen and pelvis was performed from lung bases to pubic symphysis. Imaging was performed without IV contrast. Axial, coronal, and sagittal multiplanar reformats were obtained from the axial data set by the technologist. RADIATION DOSE: DLP 501.21 mGy.cm; CTDI vol 9.54 mGy. Findings: Lungs: The lung bases are clear. Heart: Cardiomegaly. Liver: Unremarkable. Gallbladder: Unremarkable. Spleen: Unremarkable Pancreas: Unremarkable Adrenals: Unremarkable Kidneys: Bilateral perinephric sweat. Unremarkable GI tract: Unremarkable : Unremarkable. Vasculature: Mild aortoiliac atherosclerosis. Lymphadenopathy: Absent Peritoneum: Trace pelvic ascites. Mild ruthann mesentery. Musculoskeletal: Mild multilevel degenerative changes of the thoracolumbar spine. Grade 1 anterolisthesis of L5 on S1. Soft tissues: Unremarkable Impression: 1. No acute abdominopelvic abnormalities. 2. Mild sclerosing mesenteritis. 3. Trace pelvic ascites, nonspecific. ATED BY: MARYAM YEAGER DO Labs Test 03/05/25 18:44 03/05/25 18:08 03/05/25 17:10 Range/Units Prothrombin Time 19.4 H 9.3-11.8 sec Prothrombin Time INR 1.96 H 0.9-1.15 Activated Partial Thromboplast Time 33.0 24.5-34.5 SEC Lactic Acid Level 3.5 *H 0.4-2.0 mmol/L Lipase 28 12-53 U/L Troponin I High Sensitivity 27 </=54 ng/L B-Type Natriuretic Peptide 3695.11 0-100 pg/mL White Blood Count 6.4 4.4-10.8 10^3/uL Red Blood Count 4.36 L 4.5-5.90 10^6/uL Hemoglobin 14.1 13.5-17.5 g/dL Hematocrit 41.2 41.0-53.0 % Mean Corpuscular Volume 94.5 80.0-100.0 fL Mean Corpuscular Hemoglobin 32.3 H 28.0-32.0 pg Mean Corpuscular Hemoglobin Concent 34.2 32.0-36.0 g/dL Red Cell Distribution Width 18.7 H 11.8-14.3 % Platelet Count 210 140-450 10^3/uL Mean Platelet Volume 8.5 6.9-10.8 fL Neutrophils (%) (Auto) 37.0-80.0 % Lymphocytes (%) (Auto) 10.0-50.0 % Monocytes (%) (Auto) 0.0-12.0 % Basophils (%) (Auto) 0.0-2.0 % Neutrophils # (Auto) 1.6-8.6 10 ^3/uL Lymphocytes # (Auto) 0.4-5.4 10 ^3/uL Monocytes # (Auto) 0-1.3 10 ^3/uL Differential Total Cells Counted 100.0 100 Neutrophils % (Manual) 61 37.0-80.0 Band Neutrophils % (Manual) 0 Lymphocytes % (Manual) 15 10.0-50.0 Monocytes % (Manual) 23 H 0-12 Eosinophils % (Manual) 1 0-7 Basophils % (Manual) 0 0.0-2.0 Metamyelocytes % (manual) 0 Myelocytes % (Manual) 0 Promyelocytes % (Manual) 0 Blast Cells % (Manual) 0 Reactive Lymphocytes 0 Platelet Estimate Adequate Large Platelets Few Sodium Level 132 L 136-145 mmol/L Potassium Level 3.7 3.5-5.1 mmol/L Chloride Level 93 L 98-107 mmol/L Carbon Dioxide Level 27 20-31 mmol/L Anion Gap 12 5-15 Blood Urea Nitrogen 24 H 9-23 mg/dL Creatinine 1.52 H 0.700-1.30 mg/dL Glomerular Filtration Rate Calc 51 >90 mL/min BUN/Creatinine Ratio 15.8 10.0-20.0 Serum Glucose 95 74-106 mg/dL Calcium Level 9.7 8.7-10.4 mg/dL Total Bilirubin 4.2 H 0.2-1.0 mg/dL Aspartate Amino Transferase (AST) 41 H 13-40 U/L Alanine Aminotransferase (ALT) 30 7-40 U/L Alkaline Phosphatase 212 H 46-116 U/L Total Protein 7.1 5.7-8.2 g/dL Albumin 4.7 3.2-4.8 g/dL SEPSIS Sepsis Screen Date sepsis recognized/suspect: Mar 05, 2025 Time Sepsis recognized/suspect: 1644 Recent Procedure: No On Antibiotic Therapy: No Respiratory Rate >20: Yes Heart Rate >90: Yes Temp<36 C (96.8 F) or >38.3 C: No SBP <90 or MAP <65 mmHG: No New Acute Mental Status Change: No Is the patient on CPAP, BIPAP,: No Physician Orders Pipe Insulator (03/05/25 ) Urinalysis (03/05/25 16:48) Chest Portable (03/05/25 16:48) Electrocardigram (03/05/25 16:48) Troponin-I Hs (03/05/25 19:48) Electrocardigram (03/05/25 17:48) Ct Ab Pel Wo Con-No Oral Or Iv (03/05/25 18:11) Urinalysis (03/05/25 19:31) Blood Culture (03/05/25:) Furosemide Injection (Lasix Injection) (03/06/25 06:00) Aspirin Tablet (03/06/25 10:00) Amiodarone Tablet (Cordarone Tablet) (03/05/25 22:00) Carvedilol Tablet (Coreg Tablet) (03/05/25 22:00) Digoxin Tablet (Lanoxin Tablet) (03/06/25 10:00) Sacubitril-Valsartan (Entresto 24-26 Mg (03/05/25 22:00) Atorvastatin (Lipitor) (03/05/25 22:00) Spironolactone (Aldactone) (03/06/25 06:00) Basic Metabolic Panel (03/06/25 04:00) Admit (03/05/25 19:30) Hydrocodone-Acet 5/325mg Tab ([place] 5/32 (03/05/25 19:30) Ondansetron Hcl (Zofran) (03/05/25 19:30) Cardiac Diet-2gna,Lofat,Lochol (03/06/25 Breakfast) Condition: Fair (03/05/25:30) Acetaminophen Tablet (Tylenol Tablet) (03/05/25 19:30) Bedrest With Bathroom Privileg (03/05/25 19:30) Nitroglycerin Sublingual (Ntrostat Subli (03/05/25:30) Morphine Sulfate Injection (03/05/25:30) Stat Ekg For Chest Pain (03/05/25:30) Notify Of Changes From Base (03/05/25 19:30) Retail Agent For 24 Hours (03/05/25 19:30) Emergency Dysrhythmia Protocol (03/05/2530) Rhythm Strips Once Every Shift (03/05/25 19:30) Oxygen By Nasal Cannula (03/05/25 19:30) Vital Signs Date Time Temp Pulse Resp B/P (MAP) Pulse Ox O2 Delivery O2 Flow Rate FiO2 03/05/25 19:00 92 18 135/86 (102) 98 03/05/25 18:49 117/86 03/05/25 17:42 88 03/05/25 17:00 97.7 90 18 112/85 (94) 93 97.7 03/05/25 16:41 98.5 90 22 124/87 100 98.5 03/05/25 16:37 90 Laboratory Tests Test 03/05/25 17:10 03/05/25 18:44 White Blood Count 6.4 10^3/uL (4.4-10.8) Lactic Acid Level 3.5 mmol/L (0.4-2.0) *H Medications Medications Dose Ordered Sig/Brian Route Start Time Stop Time Status Last Admin Dose Admin Furosemide 40 mg ONCE ONCE IV 03/05/25 17:00 03/05/25 17:05 DC 03/05/25 18:49 40 MG Assessment/Plan Assessment/Plan Assessment Acute on chronic congestive heart failure Hypertension Status post pacemaker Chronic kidney disease Plan Admit the patient to telemetry to the hospitalist IV Lasix Resume home medications Continue treatment per orders. Plan discussed with: Patient My Orders Orders - REINA ARRINGTON Procedure Category Date Status Time Furosemide Injection PHA 03/06/25 Logged (Lasix Injection) 06:00 Aspirin Tablet PHA 03/06/25 Logged 10:00 Amiodarone Tablet PHA 03/05/25 Logged (Cordarone Tablet) 22:00 Carvedilol Tablet PHA 03/05/25 Logged (Coreg Tablet) 22:00 Digoxin Tablet PHA 03/06/25 Logged (Lanoxin Tablet) 10:00 Sacubitril-Valsartan PHA 03/05/25 Logged (Entresto 24-26 Mg 22:00 Atorvastatin (Lipitor) PHA 03/05/25 Logged 22:00 Spironolactone PHA 03/06/25 Logged (Aldactone) 06:00 Basic Metabolic Panel LAB 03/06/25 Verified 04:00 Admit ADMIT 03/05/25 Transmitted 19:30 Hydrocodone-Acet PHA 03/05/25 Logged 5/325mg Tab ([place] 19:30 Ondansetron Hcl PHA 03/05/25 Logged (Zofran) 19:30 Cardiac DIET 03/06/25 Transmitted Diet-2gna,Lofat,Lochol Breakfast Condition: Fair JIMMIE 03/05/25 In Process 19:30 Acetaminophen Tablet [facility] 03/05/25 Logged (Tylenol Tablet) 19:30 Bedrest With Bathroom [facility] 03/05/25 In Process Privileg 19:30 Nitroglycerin [facility] 03/05/25 Logged Sublingual (Ntrostat 19:30 Morphine Sulfate [facility] 03/05/25 Logged Injection 19:30 Stat Ekg For Chest [facility] 03/05/25 In Process Pain 19:30 Notify Md Of Changes [facility] 03/05/25 In Process From Base 19:30 Retail Agent For [facility] 03/05/25 In Process 24 Hours 19:30 Emergency Dysrhythmia [facility] 03/05/25 In Process Protocol 19:30 Rhythm Strips Once [facility] 03/05/25 In Process Every Shift 19:30 Oxygen By Nasal RT 03/05/25 Transmitted Cannula 19:30 Date of Service: Mar 05, 2025 Billing Provider: REINA ARRINGTON Common Visit Codes: [id number] INP/OBS CARE (HIGH) REINA ARRINGTON Mar 05, 2025 19:46
--- NOTE | 2025-03-05 20:08 | ECG ---
[facility] Test Date: 2025-03-05 Test Time: 17:42:46 Pat Name: SUHAIL VILLALTA Department: ED Room: 0218T Gender: M Supervisor Color Making: MAKAYLA : 1960 Requested By: JESSI NARVAEZ Order Number: [id number] Reading MD: Adrián Mock Measurements Intervals [place] Rate: 88 P: 31 IA: 220 QRS: 237 QRSD: 156 T: 50 QT: 432 QTc: 523 Interpretive Statements Sinus rhythm Prolonged IA interval Probable left atrial enlargement Nonspecific intraventricular conduction delay Inferior infarct, acute (LCx) Anterior infarct, old Lateral leads are also involved Electronically Signed On 03-09-2025 22:45:33 PDT by Adrián Mock Please click the below link to view image of tracing.
[2025-03-05 21:18] VITALS: BP 115/89; PULSE 87; RESP 20; TEMP 97; O2SAT 99
[2025-03-05 21:19] VITALS: PULSE 91
[2025-03-05 21:21] LABS: Urine Protein, UAD Negative (Negative)
[2025-03-05] MEDS: ATORVASTATIN 20 MG TAB PO SCH (21:56)
[2025-03-05] MEDS: SACUBITRIL-VALSARTAN 24mg/26mg TAB PO SCH (21:57)
[2025-03-05] MEDS: AMIODARONE HCL 200 MG TAB PO SCH (21:57)
[2025-03-05] MEDS: CARVEDILOL 3.125 MG TAB PO SCH (21:57)
[2025-03-05] MEDS: HYDROcodone-ACET 5/325MG TAB PO PRN (22:13)
[2025-03-05 22:14] VITALS: BP 115/89; PULSE 87; RESP 20; TEMP 97; O2SAT 99
[2025-03-06] VITALS (7 sets, daily range): BP systolic 89–109; BP diastolic 51–71; PULSE 53–67; RESP 16–20; TEMP 97–97.8; O2SAT 92–100
[2025-03-06] MEDS: SPIRONOLACTONE 25 MG TAB PO SCH (05:41)
[2025-03-06] MEDS: FUROSEMIDE 20 MG/2 ML VIAL IV SCH (05:41)
--- NOTE | 2025-03-06 06:10 | ECG ---
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
[2025-03-06 07:54] LABS: Chloride 98 mmol/L (98-107); Sodium 136 mmol/L (136-145)
[2025-03-06 07:55] LABS: Anion Gap 8 (5-15); Calcium 8.9 mg/dL (8.7-10.4); Carbon Dioxide 30 mmol/L (20-31)
[2025-03-06 07:57] LABS: Potassium 3.3 mmol/L (3.5-5.1)
[2025-03-06 08:00] LABS: BUN/Creatinine Ratio 16.1 (10.0-20.0); Blood Urea Nitrogen 20 mg/dL (9-23); Glucose 65 mg/dL (74-106)
--- NOTE | 2025-03-06 08:23 | DVHPNRES ---
Progress Note Date Seen: Mar 06, 2025 Resident Creating Document: KUNAL FAULKNER RESIDENT Medical Necessity Reason Pt with a Central, PICC or Fol: No Subjective Review of Systems Slava Julio 65 M with past medical history of HFrEF, hypertension, diabetes mellitus, presented to the ER with chest pain and shortness of breaths. He complains the chest pain is substernal starting 3 days ago, on and off for last 2 days. He took 2 nitroglycerin pills that did not help with the pain, urged his visit to ER. Associated with palpitations and shortness of breaths. Shortness of breaths has been present chronically for last decade, uses 2 L home oxygen as needed. No history of fever, abdominal pain, nausea, vomiting, diarrhea. Compliant on medications. Previous hospitalization: Last week because of worsening of heart failure symptoms PSHx: PCI, pacemaker Social history: Reports quitting smoking 40 years back, alcohol 30 years back, recreational drugs or use back. Lives in house alone. Home medication: Spironolactone, ondansetron, Kenalog, tacrolimus, hydrocortisone, carvedilol, ibuprofen, simethicone, budesonide, midodrine, afebrile Heladio, Verquvo, aspirin, amiodarone, cholecalciferol, dapagliflozin, mexiletine, KCl Allergic history: Crab, shellfish allergy ROS: Constitutional: Denies weight loss, fever and chills. HEENT: Denies changes in vision and hearing. Respiratory: Shortness of breath Cardiovascular: Chest pain on admission GI: Denies abdominal pain, nausea, vomiting and diarrhea. : Denies dysuria and urinary frequency. Musculoskeletal: Denies myalgias and joint pain Skin: Denies rash and pruritus. Neurological: Denies dizziness, headache, vision or hearing problems He was examined at bedside today. Complained of shortness of breaths, reduced since admission, chest pain resolved. Vitals show Tachypnea, soft blood pressure. Objective vital signs Vital Sign Date Time Temp Pulse Resp B/P (MAP) Pulse Ox O2 Delivery O2 Flow Rate FiO2 03/06/25 05:41 106/68 03/06/25 05:00 97.7 61 20 100 97.7 03/05/25 22:14 Room Air* 0 21 Total Intake and Output 03/05/25 03/05/25 03/06/25 15:00 23:00 07:00 Intake Total 1272 ml Balance 1272 ml medications Current Medications Medications Dose Ordered Sig/Brian Route Start Time Stop Time Status Last Admin Dose Admin Furosemide 20 mg BIDD IV 03/06/25 06:00 Aspirin 81 mg DAILY PO 03/06/25 10:00 Amiodarone HCl 200 mg Q12HR PO 03/05/25 22:00 03/05/25 21:57 200 MG Carvedilol 3.125 mg Q12HR PO 03/05/25 22:00 Digoxin 0.125 mg DAILY PO 03/06/25 10:00 Sacubitril/ Valsartan 1 tab BID PO 03/05/25 22:00 03/05/25 21:57 1 TAB Atorvastatin Calcium 10 mg HS PO 03/05/25 22:00 03/05/25 21:56 10 MG Spironolactone 25 mg BIDD PO 03/06/25 06:00 Acetaminophen/ Hydrocodone Bitart 1 tab Q4HP PRN PO 03/05/25 19:30 03/05/25 22:13 1 TAB Ondansetron HCl 4 mg Q4HP PRN IV 03/05/25 19:30 Acetaminophen 650 mg Q6HP PRN PO 03/05/25 19:30 Nitroglycerin 0.4 mg Q5MINP PRN SL 03/05/25 19:30 Morphine Sulfate 2 mg Q30M PRN IV 03/05/25 19:30 Examination General: Patient alert and oriented in person, place and time. Patient following commands. HEENT: Normocephalic, atraumatic, moist mucous membranes Respiratory/pulmonary: Fine crackles in left lung, pacemaker on left side of the chest Cardiovascular: Normal heart sounds S1 and S2 with no associated murmurs Abdomen: Abdominal tenderness in the left lower quadrant. Protuberant belly Extremities: No pitting edema Peripheral Pulses: 3+ Radial (R). 3+ Radial (L). 3+ Dorsalis pedis (R). 3+ Dorsalis pedis(L) Skin: No rashes or pruritus, there is no sacral edema present at this time. Neurological: Intact cranial nerves with no focal neurologic deficits laboratory and microbiology Laboratory Tests 03/06/25 07:30 03/05/25 17:10 Test 03/06/25 07:30 Range/Units Serum Glucose 65 L 74-106 mg/dL Problem List/Assessment/Plan Problem List/Assessment/Plan SIRS due to below Cardiogenic shock grade 2, grade 3 Acute exacerbation of HFrEF with LVEF 6% Cardiohepatic syndrome, possible Tachycardia OA, tachypnea Labs show monocytosis, lactic acidosis CT abdomen: Mild sclerosing mesenteritis, Trace pelvic ascites. CXR; enlarged cardiac silhouette EKG: Nonspecific IVCD with LAD, LVH with secondary repolarization abnormality, Inferior infarct, acute (RCA), Anterior Q waves, possibly due to LVH, Probable RV involvement, suggest recording right precordial leads Echo done last month, revealed 6% LVEF, mild pericardial effusion, severe atrial valve regurgitation, severe pulmonary hypertension, RSVP 52 mmHg Monitor on telemetry Pain management, Zofran Continue O2 supplementation Continue digoxin, aspirin Continue spironolactone, furosemide Discontinued Entresto, carvedilol due to low blood pressure Discontinued Amiodarone Hepatic Cirrhosis US abdomen: Diffuse hepatic steatosis with nodular liver contour, suggesting cirrhosis. Trace ascities. Hypokalemia K+ repleated Hyperlipidemia Continue Atorvastatin Acute on chronic congestive heart failure Hypertension Status post pacemaker Chronic kidney disease DIET: Cardiac DVT PROPHYLAXIS: Lovenox GI PROPHYLAXIS: Protonix CODE STATUS: Goals of care discussed with patient at bedside for more than 25 minutes. Full code DISPOSITION: Med/surge Patient's status and plan discussed with the patient. Case discussed with Dr. Jaime. Plan discussed with: Patient My Orders My Orders Orders - KUNAL FAULKNER Procedure Category Date Status Time Potassium LAB 03/06/25 Logged 13:00 Potassium Effervesent PHA 03/06/25 Logged Tab (Klor-Con/Ef) 08:30 Date of Service: Mar 06, 2025 Billing Provider: MEME JAIME MD Common Visit Codes: [id number] INP/OBS CARE(HIGH) KUNAL FAULKNER RESIDENT Mar 06, 2025 08:23 MEME JAIME MD Mar 06, 2025 23:34
[2025-03-06] MEDS: POTASSIUM EFFERVESENT TAB 25 MEQ PO ONE (09:45)
[2025-03-06] MEDS: DIGOXIN 0.125 MG TAB PO SCH (09:49)
[2025-03-06] MEDS: FUROSEMIDE 20 MG/2 ML VIAL IV ONE (13:11)
[2025-03-06] MEDS: MAGNESIUM OXIDE 400 MG TAB PO ONE (13:11)
--- NOTE | 2025-03-06 13:26 | DVH ---
CLINICAL HISTORY: rule out hepatobilliary pathology, check IVC TECHNIQUE: Transabdominal sonogram was performed of the right upper quadrant. COMPARISON: US GALLBLADDER on DOS: 02/06/24, US ABDOMEN LIMITED on DOS: 11/02/22 FINDINGS: The liver is slightly nodular and contour and increase in echogenicity. There is no focal parenchymal abnormality. No intrahepatic biliary ductal dilatation is present. The liver measures 16.3 cm. There is trace ascites. The visualized proximal IVC is grossly unremarkable. The gallbladder is normal with no evidence for stones or wall thickening. The common bile duct is normal in caliber, measuring 5 mm. The visualized pancreas is grossly unremarkable. The right kidney is normal in echogenicity and measures 11.8 cm in length. There is no evidence for h ydronephrosis or calculi. IMPRESSION: Diffuse hepatic steatosis with nodular liver contour, suggesting cirrhosis. Trace ascities.
[2025-03-06] MEDS: FUROSEMIDE 40 MG/4 ML VIAL IV SCH (18:36)
[2025-03-07 01:00] VITALS: BP 95/63; PULSE 63; RESP 17; TEMP 96.9; O2SAT 100
[2025-03-07] MEDS: MELATONIN 5 MG TAB PO ONE (01:21)
[2025-03-07 05:00] VITALS: BP 99/71; PULSE 79; RESP 18; TEMP 97.2; O2SAT 99
[2025-03-07 06:39] LABS: Hematocrit 40.3 % (41.0-53.0); Hemoglobin 14.0 g/dL (13.5-17.5); Mean Corpuscular Hemoglobin 32.6 pg (28.0-32.0); Mean Corpuscular Volume 93.8 fL (80.0-100.0); Nucleated Red Blood Cells % 0.1 %
[2025-03-07 07:00] LABS: Anion Gap 8 (5-15); Carbon Dioxide 27 mmol/L (20-31); Chloride 99 mmol/L (98-107); Potassium 4.1 mmol/L (3.5-5.1)
[2025-03-07 07:02] LABS: Calcium 8.8 mg/dL (8.7-10.4)
[2025-03-07 07:06] LABS: Glucose 84 mg/dL (74-106)
[2025-03-07 07:07] LABS: BUN/Creatinine Ratio 19.5 (10.0-20.0); Blood Urea Nitrogen 22 mg/dL (9-23); Sodium 134 mmol/L (136-145)
[2025-03-07 08:00] VITALS: PULSE 78
[2025-03-07] MEDS: MAGNESIUM OXIDE 400 MG TAB PO SCH (08:58)
[2025-03-07 09:00] VITALS: BP 103/77; PULSE 76; RESP 18; TEMP 98.5; O2SAT 100
[2025-03-07 13:00] VITALS: BP 101/71; PULSE 72; RESP 18; TEMP 98.5; O2SAT 98
--- NOTE | 2025-03-07 15:20 | DVHDS2 ---
Discharge Summary Date of Admission Mar 05, 2025 at 19:30 Date of Discharge: Mar 07, 2025 Labs/Diagnostic Data: Laboratory Results Test 03/07/25 05:55 03/07/25 05:49 03/06/25 17:36 03/06/25 07:30 White Blood Count 5.1 10^3/uL (4.4-10.8) Red Blood Count 4.29 10^6/uL (4.5-5.90) Hemoglobin 14.0 g/dL (13.5-17.5) Hematocrit 40.3 % (41.0-53.0) Mean Corpuscular Volume 93.8 fL (80.0-100.0) Mean Corpuscular Hemoglobin 32.6 pg (28.0-32.0) Mean Corpuscular Hemoglobin Concent 34.7 g/dL (32.0-36.0) Red Cell Distribution Width 19.3 % (11.8-14.3) Platelet Count 236 10^3/uL (140-450) Mean Platelet Volume 8.0 fL (6.9-10.8) Neutrophils (%) (Auto) 68.1 % (37.0-80.0) Lymphocytes (%) (Auto) 12.4 % (10.0-50.0) Monocytes (%) (Auto) 16.0 % (0.0-12.0) Eosinophils (%) (Auto) 2.7 % (0.0-7.0) Basophils (%) (Auto) 0.8 % (0.0-2.0) Neutrophils # (Auto) 3.5 10 ^3/uL (1.6-8.6) Lymphocytes # (Auto) 0.6 10 ^3/uL (0.4-5.4) Monocytes # (Auto) 0.8 10 ^3/uL (0-1.3) Eosinophils # (Auto) 0.1 10 ^3/uL (0-0.8) Basophils # (Auto) 0 10 ^3/uL (0-0.2) Nucleated Red Blood Cells 0.1 % Sodium Level 134 mmol/L (136-145) Potassium Level 4.1 mmol/L (3.5-5.1) Chloride Level 99 mmol/L (98-107) Carbon Dioxide Level 27 mmol/L (20-31) Anion Gap 8 (5-15) Blood Urea Nitrogen 22 mg/dL (9-23) Creatinine 1.13 mg/dL (0.700-1.30) Glomerular Filtration Rate Calc 73 mL/min (>90) BUN/Creatinine Ratio 19.5 (10.0-20.0) Serum Glucose 84 mg/dL (74-106) Calcium Level 8.8 mg/dL (8.7-10.4) POC Glucose 94 mg/dl (70-106) Lactic Acid Level 1.3 mmol/L (0.4-2.0) Magnesium Level 1.9 mg/dL (1.6-2.6) Digoxin Level < 0.14 ng/mL (0.8-2) Test 03/05/25 20:53 03/05/25 19:00 03/05/25 18:44 03/05/25 18:08 Troponin I High Sensitivity 21 ng/L (</=54) Urine Color Yellow (Yellow) Urine Clarity Clear (Clear) Urine pH 6.0 (5.0-9.0) Urine Specific [place] 1.009 (1.001-1.035) Urine Protein Negative (Negative) Urine Ketones Negative (Negative) Urine Blood Negative /uL (Negative) Urine Nitrite Negative (Negative) Urine Bilirubin Negative (Negative) Urine Urobilinogen 3 mg/dL (Negative) Urine Leukocyte Esterase Negative /uL (Negative) Urine RBC 1 /hpf (0 - 3) Urine Microscopic WBC 2 /HPF (0-3) Urine Squamous Epithelial Cells None seen /hpf (<5) Urine Bacteria None seen /hpf (None Seen) Urine Hyaline Casts Many /lpf (0 - 2) Urine Mucus Few (None Seen) Urine Glucose Normal mg/dL (Normal) Prothrombin Time 19.4 sec (9.3-11.8) Prothrombin Time INR 1.96 (0.9-1.15) Activated Partial Thromboplast Time 33.0 SEC (24.5-34.5) Lipase 28 U/L (12-53) B-Type Natriuretic Peptide 3695.11 pg/mL (0-100) Test 03/05/25 17:10 Differential Total Cells Counted 100.0 (100) Neutrophils % (Manual) 61 (37.0-80.0) Band Neutrophils % (Manual) 0 Lymphocytes % (Manual) 15 (10.0-50.0) Monocytes % (Manual) 23 (0-12) Eosinophils % (Manual) 1 (0-7) Basophils % (Manual) 0 (0.0-2.0) Metamyelocytes % (manual) 0 Myelocytes % (Manual) 0 Promyelocytes % (Manual) 0 Blast Cells % (Manual) 0 Reactive Lymphocytes 0 Platelet Estimate Adequate Large Platelets Few Total Bilirubin 4.2 mg/dL (0.2-1.0) Aspartate Amino Transferase (AST) 41 U/L (13-40) Alanine Aminotransferase (ALT) 30 U/L (7-40) Alkaline Phosphatase 212 U/L (46-116) Total Protein 7.1 g/dL (5.7-8.2) Albumin 4.7 g/dL (3.2-4.8) Other Laboratory Tests 03/07/25 05:55 Brief Hx & Hospital Course: Slava Julio 65 M with past medical history of HFrEF, hypertension, diabetes mellitus, presented to the ER with chest pain and shortness of breaths. He complains the chest pain is substernal starting 3 days ago, on and off for last 2 days. He took 2 nitroglycerin pills that did not help with the pain, urged his visit to ER. Associated with palpitations and shortness of breaths. Shortness of breaths has been present chronically for last decade, uses 2 L home oxygen as needed. No history of fever, abdominal pain, nausea, vomiting, diarrhea. Compliant on medications. 03/07 patient admitted for CHF exacerbation. BNP was elevated on admit but x-rays fine, lungs are fine, no pitting edema no sacral edema. Patient appears euvolemic, no shortness of breath. No further reason to continue inpatient admission. Patient okay with following up outpatient with primary and digital product manager. Stable for discharge as per plan below. Diagnosis: Acute decompensated heart failure, systolic and diastolic failure Hypotension, likely iatrogenic polypharmacy History of cirrhosis Hypokalemia, repleted Hyperlipidemia Hypertension Status post pacemaker CKD Discharge plan: - Continue home amiodarone 200 mg twice daily, aspirin 81 once daily, Bumex 2 mg twice daily, Coreg 3 mg twice daily, Jardiance 10 mg once daily, digoxin 125 mcg once daily, ivabradine 5 mg twice daily, mexiletine 150 mg once daily, midodrine 5 mg 3 times daily, hold off potassium supplements, hold off Entresto,, continue simvastatin 10 mg daily, hold off spironolactone, continue vericiguat 10 mg once daily. - Follow up with PCP and Cardiology to see if you are stable to continue taking spironolactone, Entresto, Condition at Discharge: Fair Final Diagnosis/Problems List Acute decompensated heart failure, systolic and diastolic failure hypotension, likely iatrogenic polypharmacy History of cirrhosis Hypokalemia, repleted Hyperlipidemia Hypertension Status post pacemaker CKD Discharge Disposition: Home Discharge Instruct/Medications Diet: Cardiac 2g Na,low cholest Activity: No Restrictions, As Tolerated Scheduled Amiodarone HCl (Amiodarone HCl), 200 MG PO Q12HR Aspirin (Aspir-Low), 81 MG PO DAILY, (Reported) Aspirin (Aspirin Low Dose), 1 DAILY, (Reported) Bumetanide (Bumetanide), 1 TAB PO BID Bumetanide (Bumetanide), 1 TAB PO BID Carvedilol (Carvedilol), 3.125 MG PO BID, (Reported) Cholecalciferol (Vitamin D3), 1 TAB PO DAILY, (Reported) Dapagliflozin Propanediol (Farxiga), 10 MG PO DAILY, (Reported) Digoxin (Digoxin), 1 TAB PO DAILY, (Reported) Ivabradine Hydrochloride (Corlanor), 1 TAB PO BID, (Reported) Midodrine HCl (Midodrine Hydrochloride), 2 TAB PO TID, (Reported) Nitroglycerin (Ntrostat Sublingual), 0.4 MG SL PRN, (Reported) Pantoprazole Sodium Sesquihydr (Pantoprazole Sodium), 40 MG PO DAILY, (Reported) Potassium Chloride (Potassium Chloride ER), 20 MEQ PO DAILY Sacubitril-Valsartan (Entresto 24-26 mg), 1 TAB PO BID, (Reported) Simvastatin (Simvastatin), 10 MG PO DAILY, (Reported) Spironolactone (Spironolactone), 1 TAB PO BID, (Reported) Spironolactone (Aldactone), 1 TAB PO DAILY Vericiguat (Verquvo), 1 TAB PO DAILY, (Reported) Scheduled PRN Acetaminophen (Acetaminophen), 325 MG PO Q4HP PRN Miscellaneous Medications Mexiletine HCl (Mexiletine Hydrochloride), 1, (Reported) Discharge Statement: "Patient was advised to return to the ER or call 911 if any headaches, dizziness, shortness of breath, chest pain, abdominal pain, bleeding, fevers, or worsening of medical condition. Patient was counseled about treatment plan, medications, possible side effects, patientverbalized understanding. All questions were answered to the best of my ability. This discharge took greater then 30 minutes in planning, reviewing documentation, counseling the patient, and discussing with other team members." Date of Service: Mar 07, 2025 Billing Provider: BRAIN LAI MD Common Visit Codes: [id number] DISCH DAY >30min BRAIN LAI MD Mar 07, 2025 15:20
[2025-03-07 15:59] VITALS: BP 99/71; PULSE 69; TEMP 36.9
[2025-03-07] MEDS ORDERED: FAMO20TA10 PO (17:02)
== END 2025-03-07 16:23 | disposition home or self-care (01) | DRG 194 ==
LOC: ER 16:34 → OVERFLOW 19:30 → TELE-CENTR 21:16
PROVIDERS: ADMIT Nurse Practitioner; ATTEND Nurse Practitioner
DX: I13.0 Hypertensive heart and chronic kidney disease with heart failure and stage 1 through stage 4 chronic kidney disease, or unspecified chronic kidney disease (principal); E87.20 Acidosis, unspecified; N17.9 Acute kidney failure, unspecified; I95.9 Hypotension, unspecified; R65.10 Systemic inflammatory response syndrome (SIRS) of non-infectious origin without acute organ dysfunction; K74.60 Unspecified cirrhosis of liver; E11.22 Type 2 diabetes mellitus with diabetic chronic kidney disease; I50.43 Acute on chronic combined systolic (congestive) and diastolic (congestive) heart failure; E87.6 Hypokalemia; E78.5 Hyperlipidemia, unspecified; N18.9 Chronic kidney disease, unspecified; T50.995A Adverse effect of other drugs, medicaments and biological substances, initial encounter; E80.6 Other disorders of bilirubin metabolism; I25.10 Atherosclerotic heart disease of native coronary artery without angina pectoris; Z95.0 Presence of cardiac pacemaker; Z86.711 Personal history of pulmonary embolism; Z91.013 Allergy to seafood; Z98.61 Coronary angioplasty status; Y92.89 Other specified places as the place of occurrence of the external cause
CPT/HCPCS: 36415; 71045; 74176; 76705; 80048; 80053; 80162; 81001; 82962; 83605; 83690; 83735; 83880; 84132; 84484; 85007; 85025; 85027; 85610; 85730; 87040; 87081; 93005; 96374; G0378

== ENCOUNTER 2025-03-20 20:01 | Inpatient (IN) | payer MEDICAID ==
[~2025-03-20] VITALS: Ht 182.9 cm; Wt 84.0 kg
[~2025-03-20 20:01] MED LIST changes: +BUME1TAB3 PO; +CARV6.2551 PO; +FAMO20TA10 PO; -SACU1TAB PO; -SPIR25TA PO
--- NOTE | 2025-03-20 20:17 | ED.PDOC ---
HPI Comments 65 year old male who came to ER via EMS for chest pains. Discharged here last March 07, diagnosed with 1. Acute decompensated heart failure, systolic and diastolic failure, 2. hypotension, likely iatrogenic polypharmacy, 3. History of cirrhosis, 4. Hypokalemia, repleted , 5. Hyperlipidemia , 6. Hypertension, 7. Status post pacemaker, 8. CKD. Patient states he has been off his diuretic medications for the past 5 days, since then has been experiencing chest pain, shortness a breath, generalized weakness and episodes of confusion. Chief Complaint: Chest Pain Time Seen by MD: 20:15 Primary Care Provider: GABRIELA Reviewed Notes: Nurses Notes Allergies: Coded Allergies: Shellfish Allergy (Unverified Allergy, Severe, 09/11/23) CRAB Uncoded Allergies: CRAB (Allergy, Severe, 08/06/17) Home Meds Active Scripts Famotidine (PEPCID TABLET) 20 Mg Tb, 1 TAB PO BID for 30 Days, #60 TAB 0 Refills Prov:BRAIN LAI MD 03/07/25 Bumetanide (Bumetanide) 2 Mg Tab, 1 TAB PO BID, #60 TAB 5 Refills Prov:FIORELLA DEVINE MD 09/06/24 Potassium Chloride (Potassium Chloride ER) 10 Meq Tab, 20 MEQ PO DAILY for 30 Days, #60 TAB Prov:MEME JAIME MD 04/30/24 Bumetanide (Bumetanide) 2 Mg Tab, 1 TAB PO BID for 30 Days, #60 TAB 1 Refill Prov:MEME JAIME MD 04/30/24 Amiodarone HCl (Amiodarone HCl) 200 Mg Tab, 200 MG PO Q12HR for 30 Days, #60 TAB Prov:ESTEVAN BRAN RESIDENT 02/07/24 Acetaminophen (Acetaminophen) 325 Mg Tab, 325 MG PO Q4HP PRN for 10 Days, #50 TAB Prov:ESTEVAN BRAN RESIDENT 02/07/24 Reported Medications Aspirin (Aspirin Low Dose) 81 Mg Tab, 1 DAILY 09/04/24 Mexiletine HCl (Mexiletine Hydrochloride) 150 Mg Cap, 1 09/04/24 Pantoprazole Sodium Sesquihydr (Pantoprazole Sodium) 40 Mg Tab, 40 MG PO DAILY, TAB 05/12/24 Simvastatin (Simvastatin) 10 Mg Tab, 10 MG PO DAILY, MG 05/12/24 Midodrine HCl (Midodrine Hydrochloride) 5 Mg Tab, 2 TAB PO TID, TAB 05/10/24 Cholecalciferol (VITAMIN D3) 2,000 Unit Tab, 1 TAB PO DAILY 01/09/24 Digoxin (Digoxin) 125 Mcg Tab, 1 TAB PO DAILY 01/09/24 Vericiguat (Verquvo) 10 Mg Tab, 1 TAB PO DAILY 01/09/24 Ivabradine Hydrochloride (Corlanor) 5 Mg Tab, 1 TAB PO BID 08/16/23 Nitroglycerin (NTROSTAT SUBLINGUAL) 0.4 Mg Sl, 0.4 MG SL PRN, TAB *MAY REPEAT EVERY 5 MINUTES X 3 TOTAL IF NO RELIEF, INITIATE ANALGESIC THERAPY. NOTIFY PHYSICIAN *Do not crush. 05/15/23 Dapagliflozin Propanediol (Farxiga) 10 Mg Tab, 10 MG PO DAILY, TAB 05/15/23 Carvedilol (Carvedilol) 3.125 Mg Tab, 3.125 MG PO BID, MG 05/15/23 Aspirin (Aspir-Low) 81 Mg Tab, 81 MG PO DAILY, MG 05/15/23 Information Source: Patient Mode of Arrival: Ambulatory Severity: Moderate Timing: Days Duration: Since onset Location: Substernal Radiation: No Radiation Quality: Pressure Onset: With Light Exertion Cardiac Risk Factors: HTN, Other (CHF) Associated Signs and Symptoms: SOB Past Medical History PAST MEDICAL HISTORY: AFIB, Angina, CAD, CHF, DM, High Lipids, HTN, PE Surgical History: Pacemaker, PTCA Family History Family History: Reviewed,noncontributory to illness, Family hx of DM, Family hx of heart bhavik, Family hx of HTN Social History Smoker: Quit Greater Than 1 Year, Cigarettes Alcohol: Sober Drugs: Denies Drug Use Lives In: Home Constitutional: reports: fatigue, weakness; denies: chills, diaphoresis, fever, malaise, sweats, others EENTM: denies: blurred vision, double vision, ear bleeding, ear discharge, ear drainage, ear pain, ear ringing, eye pain, eye redness, hearing loss, mouth pain, mouth swelling, nasal discharge, nose bleeding, nose congestion, nose pain, photophobia, tearing, throat pain, throat swelling, voice changes, others Respiratory: reports: SOB at rest, shortness of breath, SOB with excertion; denies: cough, hemoptysis, orthopnea, stridor, wheezing, others Cardiovascular: reports: chest pain, dizzy spells; denies: diaphoresis, Dyspnea on exertion, edema, irregular heart beat, left arm pain, lightheadedness, palpitations, PND, syncope, others Gastrointestinal: denies: abdomen distended, abdominal pain, blood streaked bowels, constipated, diarrhea, dysphagia, difficulty swallowing, hematemesis, melena, nausea, poor appetite, poor fluid intake, rectal bleeding, rectal pain, vomiting, others Genitourinary: denies: burning, dysuria, flank pain, frequency, hematuria, incontinence, penile discharge, penile sore, pain, testicle pain, testicle swelling, urgency, others Neurological: denies: dizziness, fainting, headache, left sided numbness, left sided weakness, numbness, paresthesia, pre-existing deficit, right sided numbness, right sided weakness, seizure, speech problems, tingling, tremors, weakness, others Musculoskeletal: denies: back pain, gout, joint pain, joint swelling, muscle pain, muscle stiffness, neck pain, others Integumetry: denies: bruises, change in color, change in hair/nails, dryness, laceration, lesions, lumps, rash, wounds, others Allergic/Immunocompromised: denies: Difficulty Healing, Frequent Infections, Hives, Itching, others Hematologic/Lymphatic: denies: anemia, blood clots, easy bleeding, easy bruising, swollen glands, others Endocrine: denies: excessive hunger, excessive sweating, excessive thirst, excessive urination, flushing, intolerance to cold, intolerance to heat, unexplained weight gain, unexplained weight loss, others Psychiatric: denies: anxiety, bipolar disorder, depression, hopeless, panic disorder, schizophrenia, sleepless, suicidal, others Physical Exam General Appearance: No Apparent Distress, Normal HEENT: Normal ENT Inspection, Pharynx Normal, TMs Normal Neck: Full Range of Motion, Non-Tender, Normal, Normal Inspection Respiratory: Chest Non-Tender, Lungs Clear, No Accessory Muscle Use, No Respiratory Distress, Normal Breath Sounds Cardiovascular: No Edema, No JVD, No Murmur, No Gallop, Normal Peripheral Pulses, Regular Rate/Rhythm Breast Exam: Deferred Gastrointestinal: No Organomegaly, Non Tender, No Pulsatile Mass, Normal Bowel Sounds, Soft Genitalia: Deferred Pelvic: Deferred Rectal: Deferred Extremities: No calf tenderness, Normal capillary refill, Normal inspection, Normal range of motion, Non-tender, No pedal edema Musculoskeletal : Apperance: Normal Neurologic: Alert, graduate teaching assistant II-XII nml as Tested, No Motor Deficits, Normal Affect, Normal Mood, No Sensory Deficits Cerebellar Function: Normal Reflexes: Normal Skin: Dry, Normal Color, Warm Lymphatic: No Adenopathy EKG EKG : Pulse Rate (adult): 86 Cardiac Rhythm: NSR Block: RBBB Hypertrophy: LVH ST: New, Inf, Infarct Was a procedure done? Was a procedure done?: No CP Differential Dx Differential Diagnosis: Angina, Anxiety / Panic Attack Differential Diagnosis: CHF Differential Diagnosis: Angina, Chest Wall Pain, Costochondritis, Esophageal reflux/spasm, Gastritis, Myocardial Infarction X-Ray, Labs, Meds, VS Vital Signs Date Time Temp Pulse Resp B/P (MAP) Pulse Ox O2 Delivery O2 Flow Rate FiO2 03/20/25 21:19 86 03/20/25 20:20 86 03/20/25 20:17 98.8 86 18 139/88 96 98.8 Lab Test 03/20/25 21:06 03/20/25 20:16 03/20/25 20:11 Range/Units Troponin I High Sensitivity 25 23 </=54 ng/L Urine Color Yellow Yellow Urine Clarity Clear Clear Urine pH 5.5 5.0-9.0 Urine Specific [place] 1.017 1.001-1.035 Urine Protein Trace H Negative Urine Ketones Negative Negative Urine Blood Negative Negative /uL Urine Nitrite Negative Negative Urine Bilirubin Negative Negative Urine Urobilinogen 6 Negative mg/dL Urine Leukocyte Esterase Negative Negative /uL Urine RBC <1 0 - 3 /hpf Urine Microscopic WBC 1 0-3 /HPF Urine Squamous Epithelial Cells None seen <5 /hpf Urine Bacteria None seen None Seen /hpf Urine Glucose Normal Normal mg/dL White Blood Count 4.7 4.4-10.8 10^3/uL Red Blood Count 4.23 L 4.5-5.90 10^6/uL Hemoglobin 13.5 13.5-17.5 g/dL Hematocrit 39.7 L 41.0-53.0 % Mean Corpuscular Volume 93.8 80.0-100.0 fL Mean Corpuscular Hemoglobin 31.9 28.0-32.0 pg Mean Corpuscular Hemoglobin Concent 34.0 32.0-36.0 g/dL Red Cell Distribution Width 20.3 H 11.8-14.3 % Platelet Count 193 140-450 10^3/uL Mean Platelet Volume 8.4 6.9-10.8 fL Neutrophils (%) (Auto) 75.7 37.0-80.0 % Lymphocytes (%) (Auto) 10.8 10.0-50.0 % Monocytes (%) (Auto) 9.6 0.0-12.0 % Eosinophils (%) (Auto) 1.7 0.0-7.0 % Basophils (%) (Auto) 2.2 H 0.0-2.0 % Neutrophils # (Auto) 3.6 1.6-8.6 10 ^3/uL Lymphocytes # (Auto) 0.5 0.4-5.4 10 ^3/uL Monocytes # (Auto) 0.5 0-1.3 10 ^3/uL Eosinophils # (Auto) 0.1 0-0.8 10 ^3/uL Basophils # (Auto) 0.1 0-0.2 10 ^3/uL Nucleated Red Blood Cells 0.2 % Sodium Level 134 L 136-145 mmol/L Potassium Level 4.6 3.5-5.1 mmol/L Chloride Level 99 98-107 mmol/L Carbon Dioxide Level 26 20-31 mmol/L Anion Gap 9 5-15 Blood Urea Nitrogen 29 H 9-23 mg/dL Creatinine 1.40 H 0.700-1.30 mg/dL Glomerular Filtration Rate Calc 56 >90 mL/min BUN/Creatinine Ratio 20.7 H 10.0-20.0 Serum Glucose 92 74-106 mg/dL Calcium Level 8.9 8.7-10.4 mg/dL Total Bilirubin 4.5 H 0.2-1.0 mg/dL Aspartate Amino Transferase (AST) 70 H 13-40 U/L Alanine Aminotransferase (ALT) 41 H 7-40 U/L Alkaline Phosphatase 219 H 46-116 U/L Ammonia 29 11-32 umol/L B-Type Natriuretic Peptide 1935.72 0-100 pg/mL Total Protein 7.0 5.7-8.2 g/dL Albumin 4.3 3.2-4.8 g/dL Plasma/Serum Blood Alcohol < 3.0 <10 mg/dL EXAMINATION: XY CHEST XRAY 1 VIEW CLINICAL HISTORY: chest pain COMPARISON: XY CHEST PORTABLE on DOS: 03/05/25, XY CHEST PORTABLE on DOS: 12/27/24 FINDINGS: Stable appearing left-sided implantable cardiac device. Chronic appearing fracture of the proximal portion of the coronary sinus lead. Cardiac silhouette is enlarged. Central vascular redistribution interstitial pr ominence. No definite pneumothorax or pleural effusion. Aortic calcifications noted. IMPRESSION: CHF type pattern. Chronic appearing fracture/break in the proximal portion of the coronary sinus lead. Time of 1ST Reevaluation: 20:15 Reevaluation 1ST: Unchanged Patient Education/Counseling: Diagnosis, Treatment Family Education/Counseling: No Family Present SEPSIS Sepsis Screen Physician Orders Electrocardigram (03/20/25 21:16) Electrocardigram (03/20/25 23:16) Chest Xray 1 View (03/20/25 20:22) Vital Signs Date Time Temp Pulse Resp B/P (MAP) Pulse Ox O2 Delivery O2 Flow Rate FiO2 03/20/25 21:19 86 03/20/25 20:20 86 03/20/25 20:17 98.8 86 18 139/88 96 98.8 Laboratory Tests Test 03/20/25 20:11 White Blood Count 4.7 10^3/uL (4.4-10.8) Departure 1 Departure Time of Disposition: 22:54 Impression: Primary Impression: Acute coronary syndrome Disposition: ADMITTED INPATIENT Admit to: Tele Condition: Guarded Comments 65-year-old male with complaints of chest pain today. Patient has cardiac history. Initial troponin in the normal limits. Patient was given aspirin. Patient will need to be admitted for supportive care and further workup. Critical Care Note Critical Care Time?: Yes (35 min-critical care time only) Critical care comment: Chest painTotal critical care time: Approximately 36 minutes Due to a high probability of clinically significant, life threatening deterioration, the patient required my highest level of preparedness to intervene emergently and I personally spent this critical care time directly and personally managing the patient. This critical care time included obtaining a history; examining the patient; pulse oximetry; ordering and review of studies; arranging urgent treatment with development of a management plan; evaluation of patient's response to treatment; frequent reassessment; and, discussions with other providers. This critical care time was performed to assess and manage the high probability of imminent, life-threatening deterioration that could result in multi-organ failure. It was exclusive of separately billable procedures and treating other patients. Stability Stability form required: No Heart Score Heart Score: Heart Score Response (Comments) Value History Moderate Suspicious 1 EKG Repolarization Disturb 1 Age 45-64 1 Risk Factors >3 or Hx ASHD 2 Troponin Normal limit 0 Total 5 I personally scribed for BOB JACKSON MD (VANNESSA) on 03/20/25 at 20:17. Electronically submitted by [employer]one Griffin ([facility] I personally scribed for BOB JACKSON MD (VANNESSA) on 03/20/25 at 20:20. Electronically submitted by Tone Griffin ([facility] I personally scribed for BOB JACKSON MD (VANNESSA) on 03/20/25 at 20:21. Electronically submitted by [employer]one Griffin ([facility] I personally scribed for BOB JACKSON MD (VANNESSA) on 03/20/25 at 22:07. Electronically submitted by Tone Griffin ([facility]). BOB JACKSON MD Mar 20, 2025 20:17
--- NOTE | 2025-03-20 21:00 | DVH ---
EXAMINATION: XY CHEST XRAY 1 VIEW CLINICAL HISTORY: chest pain COMPARISON: XY CHEST PORTABLE on DOS: 03/05/25, XY CHEST PORTABLE on DOS: 12/27/24 FINDINGS: Stable appearing left-sided implantable cardiac device. Chronic appearing fracture of the proximal po rtion of the coronary sinus lead. Cardiac silhouette is enlarged. Central vascular redistribution interstitial prominence. No definite pneumothorax or pleural effusion. Aortic calcifications noted. IMPRESSION: CHF type pattern. Chronic appearing fracture/break in the proximal portion of the coronary sinus lead.
[2025-03-20 21:10] LABS: Hematocrit 39.7 % (41.0-53.0); Hemoglobin 13.5 g/dL (13.5-17.5); Mean Corpuscular Hemoglobin 31.9 pg (28.0-32.0); Mean Corpuscular Volume 93.8 fL (80.0-100.0); Nucleated Red Blood Cells % 0.2 %
[2025-03-20 21:16] LABS: Albumin 4.3 g/dL (3.2-4.8); Anion Gap 9 (5-15); BUN/Creatinine Ratio 20.7 (10.0-20.0); Calcium 8.9 mg/dL (8.7-10.4); Carbon Dioxide 26 mmol/L (20-31); Chloride 99 mmol/L (98-107); Glucose 92 mg/dL (74-106); Potassium 4.6 mmol/L (3.5-5.1); Total Protein 7.0 g/dL (5.7-8.2)
--- NOTE | 2025-03-20 21:21 | ECG ---
[facility] Test Date: 2025-03-20 Test Time: 21:19:53 Pat Name: SUHAIL VILLALTA Department: ED Room: [address] [place] [address] Gender: M Creative Consultant: WISAM : [id number] Requested By: BOB JACKSON Order Number: [id number] Reading MD: Adrián Mock Measurements Intervals [place] Rate: 86 P: 65 [place]: 223 QRS: -85 QRSD: 169 T: 88 QT: 440 QTc: 527 Interpretive Statements Sinus rhythm Prolonged [place] interval Nonspecific IVCD with LAD LVH with secondary repolarization abnormality Inferior infarct, acute (RCA) Anterior Q waves, possibly due to LVH Probable RV involvement, suggest recording right precordial leads Electronically Signed On 03-21-2025 16:45:36 PDT by Adrián Mock Please click the below link to view image of tracing.
[2025-03-20 21:22] LABS: Alanine Aminotransferase 41 U/L (7-40); Alkaline Phosphatase 219 U/L (46-116); Bilirubin, Total 4.5 mg/dL (0.2-1.0); Blood Urea Nitrogen 29 mg/dL (9-23); Sodium 134 mmol/L (136-145)
[2025-03-20 21:56] LABS: Urine Protein, UAD TRACE (Negative)
[2025-03-20] MEDS ORDERED: NITROGLYCERIN 0.4 MG SL TAB SL PRN (23:30)
[2025-03-20] MEDS ORDERED: DOCUSATE SOD 100 MG CAP PO PRN (23:30)
[2025-03-20] MEDS ORDERED: IBUPROFEN 600 MG TAB PO PRN (23:30)
--- NOTE | 2025-03-20 23:43 | DVHHP2 ---
History of Present Illness Reason for Visit: Acute exacerbation of congestive heart failure History of Present Illness The patient is a 65-year-old male with multiple past medical history including AFib, Coronary artery disease, CHF, diabetes mellitus, and hypertension who presented to [facility] ED with complaint of chest pain. Patient reports he has been off his diuretic medication for the past 5 days and since then he has been experiencing chest pain, shortness of breaths, generalized weakness, and episodes of confusion. Patient was seen and evaluated in the ED, l aboratory data shows WBC 4.7, platelets 193, sodium 134, potassium 4.6, BUN 29, creatinine 1.40, glucose 92, calcium 8.9, total bilirubin 4.5, alkaline phos 219, AST 70, ALT 41, troponin 23, ammonia 29, BNP 1955.72, blood pressure 139/88, heart rate 86, temperature 98.8 F, O2 saturation 96% room air. Gallbladder ultrasound revealing hepatic steatosis, pulsatile blood flow in the IVC and hepatic veins likely related to increased right heart pressures. Patient was started on IV Lasix, please see medication orders section in the computer. On my assessment, patient denied chest pain at this moment, no headache, no dizziness, no diaphoresis, no shortness of breath, no nausea, no vomiting, no fever, no chills. Patient was admitted for further evaluation and medical management. Past Medical History AFIB, Angina, CAD, CHF, DM, High Lipids, HTN, PE Past Surgical History Pacemaker, PTCA Family History Reviewed, noncontributory to the management of this case. Past Social History The patient lives at home, denies smoking, alcohol or illicit drugs abuse. Review of Systems Constitutional: Yes: Weakness; No: Fever, Chills, Sweats, Malaise, Other Eyes: No: Pain, Vision change, Conjunctivae inflammation, Eyelid inflammation, Other, Redness ENT: No: Ear pain, Ear discharge, Nose pain, Nose discharge, Nose congestion, Mouth pain, Mouth swelling, Throat pain, Throat swelling, Other Respiratory: Shortness of breath, Other (SOB at rest); No: Cough, Dry, SOB with excertion, Wheezing, Hemoptysis, Pleuritic Pain, Sputum, Wheezing Cardiovascular: Chest Pain; No: Palpitations, Orthopnea, Paroxysmal Noc. Dyspnea, Edema, Lt Headedness, Other Gastrointestinal: No: Nausea, Vomiting, Abdominal Pain, Diarrhea, Constipation, Melena, Hematochezia, Other Genitourinary: No Dysuria, No Frequency, No Incontinence, No Hematuria, No Retention, No Other Musculoskeletal: No: other, neck pain, shoulder pain, arm pain, back pain, hand pain, leg pain, foot pain Skin: No: Rash, Lesions, Jaundice, Bruising, Other Neurological: No: Weakness, Numbness, Incoordination, Change in speech, Confusion, Seizures, Other Allergies: Coded Allergies: Shellfish Allergy (Unverified Allergy, Severe, 09/11/23) CRAB Uncoded Allergies: CRAB (Allergy, Severe, 08/06/17) Exam Vital Signs Vital Signs Date Time Temp Pulse Resp B/P (MAP) Pulse Ox O2 Delivery O2 Flow Rate FiO2 03/20/25 21:19 86 03/20/25 20:17 98.8 18 139/88 96 98.8 General Appearance: Alert, Oriented X3, Cooperative, No acute distress HEENT: Atraumatic, PERRLA, EOMI, Mucous membr. moist/pink Respiratory: Normal air movement Cardiovascular: Regular rate, Normal S1, Normal S2, No murmurs Abdominal: Normal bowel sounds, Soft, No tenderness, No hepatospenomegaly, No masses Extremities: No clubbing, No cyanosis, No edema, Normal pulses, No tenderness/swelling Skin: No rashes, No significant lesion Neuro: Normal speech, Normal tone, Sensation intact, Cranial nerves 3-12 NL, Reflexes 2+, Other (Generalized weakness) Psych/Mental Status: Mental status NL, Mood NL Labs/Xrays Labs Test 03/20/25 21:06 03/20/25 20:16 03/20/25 20:11 Range/Units Troponin I High Sensitivity 25 </=54 ng/L Urine Color Yellow Yellow Urine Clarity Clear Clear Urine pH 5.5 5.0-9.0 Urine Specific [place] 1.017 1.001-1.035 Urine Protein Trace H Negative Urine Ketones Negative Negative Urine Blood Negative Negative /uL Urine Nitrite Negative Negative Urine Bilirubin Negative Negative Urine Urobilinogen 6 Negative mg/dL Urine Leukocyte Esterase Negative Negative /uL Urine RBC <1 0 - 3 /hpf Urine Microscopic WBC 1 0-3 /HPF Urine Squamous Epithelial Cells None seen <5 /hpf Urine Bacteria None seen None Seen /hpf Urine Glucose Normal Normal mg/dL White Blood Count 4.7 4.4-10.8 10^3/uL Red Blood Count 4.23 L 4.5-5.90 10^6/uL Hemoglobin 13.5 13.5-17.5 g/dL Hematocrit 39.7 L 41.0-53.0 % Mean Corpuscular Volume 93.8 80.0-100.0 fL Mean Corpuscular Hemoglobin 31.9 28.0-32.0 pg Mean Corpuscular Hemoglobin Concent 34.0 32.0-36.0 g/dL Red Cell Distribution Width 20.3 H 11.8-14.3 % Platelet Count 193 140-450 10^3/uL Mean Platelet Volume 8.4 6.9-10.8 fL Neutrophils (%) (Auto) 75.7 37.0-80.0 % Lymphocytes (%) (Auto) 10.8 10.0-50.0 % Monocytes (%) (Auto) 9.6 0.0-12.0 % Eosinophils (%) (Auto) 1.7 0.0-7.0 % Basophils (%) (Auto) 2.2 H 0.0-2.0 % Neutrophils # (Auto) 3.6 1.6-8.6 10 ^3/uL Lymphocytes # (Auto) 0.5 0.4-5.4 10 ^3/uL Monocytes # (Auto) 0.5 0-1.3 10 ^3/uL Eosinophils # (Auto) 0.1 0-0.8 10 ^3/uL Basophils # (Auto) 0.1 0-0.2 10 ^3/uL Nucleated Red Blood Cells 0.2 % Sodium Level 134 L 136-145 mmol/L Potassium Level 4.6 3.5-5.1 mmol/L Chloride Level 99 98-107 mmol/L Carbon Dioxide Level 26 20-31 mmol/L Anion Gap 9 5-15 Blood Urea Nitrogen 29 H 9-23 mg/dL Creatinine 1.40 H 0.700-1.30 mg/dL Glomerular Filtration Rate Calc 56 >90 mL/min BUN/Creatinine Ratio 20.7 H 10.0-20.0 Serum Glucose 92 74-106 mg/dL Calcium Level 8.9 8.7-10.4 mg/dL Total Bilirubin 4.5 H 0.2-1.0 mg/dL Aspartate Amino Transferase (AST) 70 H 13-40 U/L Alanine Aminotransferase (ALT) 41 H 7-40 U/L Alkaline Phosphatase 219 H 46-116 U/L Ammonia 29 11-32 umol/L B-Type Natriuretic Peptide 1935.72 0-100 pg/mL Total Protein 7.0 5.7-8.2 g/dL Albumin 4.3 3.2-4.8 g/dL Plasma/Serum Blood Alcohol < 3.0 <10 mg/dL PATIENT: SUHAIL VILLALTA ACCT: [id number] UNIT: [id number] : 1960 LOC: OVERFLOW ROOM / BED: [address] [place] [address] AGE / SEX: 65 / M ADM STATUS: ADM IN SERVICE 25 ORDERING PHYSICIAN: SAM SMITH DNP PROCEDURE(s): GBUS - GALLBLADDER REASON: Elevated total bilirubin ORDER NUMBER(s): [id number], ACCESSION NUMBER(s): [id number] ABDOMINAL ULTRASOUND CLINICAL HISTORY: Elevated total bilirubin TECHNIQUE: Multiple grayscale and color Doppler ultrasound images were obtained of the abdomen. WID: COMPARISON: US LIVER on DOS: 03/06/25, US GALLBLADDER on DOS: 02/06/24, NM NM HIDA SCAN on DOS: 11/07/22 FINDINGS: Liver and Biliary System: Increased echotexture, normal-sized measuring 9 cm. No focal hepatic observations. No intrahepatic bile duct dilatation. The common duct measures 0.4 cm at the jill hepatis. Pulsatile blood flow in the IVC in the hepatic veins. The gallbladder is normal caliber with diffuse wall thickening measuring 4 mm. Small amount of fluid adjacent to the gallbladder. Pancreas: Visualized portions are unremarkable. Kidneys: The right kidney is 10.9 cm No hydronephrosis, increased echogenicity, shadowing stone, or focal lesion. IMPRESSION: 1. Hepatic steatosis. 2. Pulsatile blood flow in the IVC and hepatic veins likely related to increased right heart pressures. 3. Gallbladder wall thickening. DDX includes underlying hepatic dysfunction, volume overload, less likely chronic or acute cholecystitis 4. Small amount of ascites in the right upper quadrant adjacent to the gallbladder. ORDERING PHYSICIAN: BOB JACKSON MD PROCEDURE(s): CXR1 - CHEST XRAY 1 VIEW REASON: chest pain ORDER NUMBER(s): [id number], ACCESSION NUMBER(s): [id number] EXAMINATION: XY CHEST XRAY 1 VIEW CLINICAL HISTORY: chest pain COMPARISON: XY CHEST PORTABLE on DOS: 03/05/25, XY CHEST PORTABLE on DOS: 12/27/24 FINDINGS: Stable appearing left-sided implantable cardiac device. Chronic appearing fracture of the proximal portion of the coronary sinus lead. Cardiac silhouette is enlarged. Central vascular redistribution interstitial prominence. No definite pneumothorax or pleural effusion. Aortic calcifications noted. IMPRESSION: CHF type pattern. Chronic appearing fracture/break in the proximal portion of the coronary sinus lead. SEPSIS Sepsis Screen Date sepsis recognized/suspect: Mar 20, 2025 Time Sepsis recognized/suspect: 2058 Recent Procedure: No On Antibiotic Therapy: No Respiratory Rate >20: No Heart Rate >90: No Temp<36 C (96.8 F) or >38.3 C: No SBP <90 or MAP <65 mmHG: No New Acute Mental Status Change: No Is the patient on CPAP, BIPAP,: No Physician Orders Electrocardigram (03/20/25 21:16) Electrocardigram (03/20/25 23:16) Chest Xray 1 View (03/20/25 20:22) Aspirin Tablet (03/21/25 10:00) Carvedilol Tablet (Coreg Tablet) (03/21/25 10:00) Ibuprofen Tablet (Motrin Tablet) (03/20/25 23:30) Atorvastatin (Lipitor) (03/21/25 22:00) Furosemide Injection (Lasix Injection) (03/20/25 23:30) Furosemide Injection (Lasix Injection) (03/21/25 10:00) Gallbladder (03/20/25 23:26) Admit (03/20/25 23:26) Allergies (03/20/25 23:26) Code Status (03/20/25 23:26) Sodium Chloride Lock (Saline Lock Ns) (03/21/25 06:00) Oxygen Per Hour (03/20/25 23:26) Hydrocodone-Acet 5/325mg Tab (Flom 5/32 (03/20/25 23:30) Ondansetron Hcl (Zofran) (03/20/25 23:30) Docusate Sodium Capsule (Colace Capsule) (03/20/25 23:30) Complete Blood Count (03/21/25 04:00) Comprehensive Metabolic Panel (03/21/25 04:00) Cardiac Diet-2gna,Lofat,Lochol (03/21/25 Breakfast) Condition: Serious (03/20/25 23:26) Bedrest With Bathroom Privileg (03/20/25 23:26) Sequential Compression Device (03/20/25 ) Nitroglycerin Sublingual (Ntrostat Subli (03/20/25 23:30) Morphine Sulfate Injection (03/20/25 23:30) Stat Ekg For Chest Pain (03/20/25 23:26) Notify Md Of Changes From Base (03/20/25 23:26) Internal Investigator For 24 Hours (03/20/25 23:26) Emergency Dysrhythmia Protocol (03/20/25:) Rhythm Strips Once Every Shift (03/20/25 23:26) Oxygen By Nasal Cannula (03/20/25:26) Vital Signs Date Time Temp Pulse Resp B/P (MAP) Pulse Ox O2 Delivery O2 Flow Rate FiO2 03/20/25 21:19 86 03/20/25 20:20 86 03/20/25 20:17 98.8 86 18 139/88 96 98.8 Laboratory Tests Test 03/20/25 20:11 White Blood Count 4.7 10^3/uL (4.4-10.8) Assessment/Plan Assessment/Plan Acute coronary syndrome Acute renal injury Elevated liver enzymes Acute exacerbation of congestive heart failure Plan 1. Admit to telemetry unit 2. Breathing treatment 3. Pain control management 4. Management of fluids and electrolytes 5. Consultation for hospitalist 6. Diagnostic tests chest x-ray 7. DVT prophylaxis-on aspirin 8. Repeat labs CBC, CMP in a.m. 9. Continue with current medical management 10. Treatment plan discussed with patient and RN. Patient verbalized soheila perkins. Plan discussed with: Patient, Other (RN) My Orders Orders - SAM SMITH DNP Procedure Category Date Status Time Aspirin Tablet PHA 03/21/25 Transmitted 10:00 Carvedilol Tablet PHA 03/21/25 Transmitted (Coreg Tablet) 10:00 Ibuprofen Tablet PHA 03/20/25 Transmitted (Motrin Tablet) 23:30 Atorvastatin (Lipitor) PHA 03/21/25 Transmitted 22:00 Furosemide Injection PHA 03/20/25 Transmitted (Lasix Injection) 23:30 Furosemide Injection PHA 03/21/25 Transmitted (Lasix Injection) 10:00 Gallbladder US 03/20/25 Transmitted 23:26 Admit ADMIT 03/20/25 Transmitted 23:[address] [facility] 03/20/25 Transmitted 23:26 Code Status CODE 03/20/25 Transmitted 23:26 Sodium Chloride Lock PHA 03/21/25 Transmitted (Saline Lock Ns) 06:00 Oxygen Per Hour RT 03/20/25 Transmitted 23:26 Hydrocodone-Acet PHA 03/20/25 Transmitted 5/325mg Tab (Flom 23:30 Ondansetron Hcl [facility] 03/20/25 Transmitted (Zofran) 23:30 Docusate Sodium PHA 03/20/25 Transmitted Capsule (Colace 23:30 Complete Blood Count LAB 03/21/25 Verified 04:00 Comprehensive LAB 03/21/25 Verified Metabolic Panel 04:00 Cardiac DIET 03/21/25 Transmitted Diet-2gna,Lofat,Lochol Breakfast Condition: Serious [facility] 03/20/25 Transmitted 23:[address] [facility] 03/20/25 Transmitted Privileg 23:[address] [facility] 03/20/25 Transmitted Compression Device Nitroglycerin [facility] 03/20/25 Transmitted Sublingual (Ntrostat 23:30 Morphine Sulfate PHA 03/20/25 Transmitted Injection 23:30 Stat Ekg For Chest [facility] 03/20/25 Transmitted Pain 23:26 Notify Of Changes [facility] 03/20/25 Transmitted From Base 23:26 Internal Investigator For [facility] 03/20/25 Transmitted 24 Hours 23:[address] [facility] 03/20/25 Transmitted Protocol 23:[address] [facility] 03/20/25 Transmitted Every Shift 23:26 Oxygen By Nasal RT 03/20/25 Transmitted Cannula 23:26 Problem List: (1) Acute coronary syndrome (2) Acute renal injury (3) Elevated liver enzymes (4) Acute exacerbation of congestive heart failure Date of Service: Mar 20, 2025 Billing Provider: SAM SMITH DNP Common Visit Codes: [id number] INP/OBS CARE (HIGH) SAM SMITH DNP Mar 20, 2025 23:43
[2025-03-21] VITALS (9 sets, daily range): BP systolic 102–129; BP diastolic 68–77; PULSE 54–84; RESP 16–24; TEMP 96.1–98; O2SAT 95–100
[2025-03-21] MEDS: MORPHINE SULFATE INJ 2 MG/ml SYRG IV PRN (00:35)
[2025-03-21] MEDS: FUROSEMIDE 40 MG/4 ML VIAL IV ONE (01:26)
--- NOTE | 2025-03-21 02:13 | DVH ---
ABDOMINAL ULTRASOUND CLINICAL HISTORY: Elevated total bilirubin TECHNIQUE: Multiple grayscale and color Doppler ultrasound images were obtained of the abdomen. WID: COMPARISON: US LIVER on DOS: 03/06/25, US GALLBLADDER on DOS: 02/06/24, NM NM HIDA SCAN on DOS: 11/07/22 FINDINGS: Liver and Biliary System: Increased echotexture, normal-sized measuring 9 cm. No focal hepatic obse rvations. No intrahepatic bile duct dilatation. The common duct measures 0.4 cm at the jill hepati s. Pulsatile blood flow in the IVC in the hepatic veins. The gallbladder is normal caliber with dif fuse wall thickening measuring 4 mm. Small amount of fluid adjacent to the gallbladder. Pancreas: Visualized portions are unremarkable. Kidneys: The right kidney is 10.9 cm No hydronephrosis, increased echogenicity, shadowing stone, o r focal lesion. IMPRESSION: 1. Hepatic steatosis. 2. Pulsatile blood flow in the IVC and hepatic veins likely related to increased right heart pressure s. 3. Gallbladder wall thickening. DDX includes underlying hepatic dysfunction, volume overload, less l ikely chronic or acute cholecystitis 4. Small amount of ascites in the right upper quadrant adjacent to the gallbladder.
[2025-03-21] MEDS: ONDANSETRON HCL 4 MG/2 ML VIAL IV PRN (03:54)
[2025-03-21] MEDS: SODIUM CHLOR 0.9% PF (SALINE LOCK) 10ML VIAL/SYR IV SCH (05:03)
[2025-03-21 05:11] LABS: Hematocrit 41.3 % (41.0-53.0); Hemoglobin 14.0 g/dL (13.5-17.5); Mean Corpuscular Hemoglobin 31.7 pg (28.0-32.0); Mean Corpuscular Volume 93.5 fL (80.0-100.0); Nucleated Red Blood Cells % 0.2 %
[2025-03-21 05:25] LABS: Alanine Aminotransferase 34 U/L (7-40); Albumin 4.2 g/dL (3.2-4.8); Anion Gap 9 (5-15); BUN/Creatinine Ratio 14.9 (10.0-20.0); Blood Urea Nitrogen 21 mg/dL (9-23); Calcium 9.3 mg/dL (8.7-10.4); Carbon Dioxide 26 mmol/L (20-31); Potassium 3.9 mmol/L (3.5-5.1); Total Protein 6.8 g/dL (5.7-8.2)
[2025-03-21 05:38] LABS: Alkaline Phosphatase 207 U/L (46-116); Bilirubin, Total 4.7 mg/dL (0.2-1.0); Chloride 97 mmol/L (98-107); Glucose 111 mg/dL (74-106); Sodium 132 mmol/L (136-145)
[2025-03-21] MEDS: FAMOTIDINE (10MG/ML) 2ML VL IV SCH (10:15)
[2025-03-21] MEDS: CARVEDILOL 3.125 MG TAB PO SCH (10:15)
[2025-03-21] MEDS: FUROSEMIDE 40 MG/4 ML VIAL IV SCH (10:16)
[2025-03-21] MEDS: HYDROcodone-ACET 5/325MG TAB PO PRN (10:23)
--- NOTE | 2025-03-21 14:29 | DVHPN2 ---
Subjective Patient is complaining of dizziness. Patient does have end-stage heart disease. Changes from previous H/P or p: No Changes Eyes: No Pain, No Vision change, No Conjunctivae inflammation, No Eyelid inflammation, No Other, No Redness ENT: No Ear pain, No Ear discharge, No Nose pain, No Nose discharge, No Nose congestion, No Mouth pain, No Mouth swelling, No Throat pain, No Throat swelling, No Other Cardiovascular: Chest Pain; No Palpitations, No Orthopnea, No Paroxysmal Noc. Dyspnea, No Edema, No Lt Headedness, No Other Respiratory: No Cough, No Dry; Shortness of breath; No SOB with excertion, No Wheezing, No Hemoptysis, No Pleuritic Pain, No Sputum; Other (SOB at rest) Gastrointestinal: No Nausea, No Vomiting, No Abdominal Pain, No Diarrhea, No Constipation, No Melena, No Hematochezia, No Other Genitourinary: No Dysuria, No Frequency, No Incontinence, No Hematuria, No Retention, No Other Musculoskeletal: No other, No neck pain, No shoulder pain, No arm pain, No back pain, No hand pain, No leg pain, No foot pain Skin: No Rash, No Lesions, No Jaundice, No Bruising, No Other Objective Vitals Vital Signs Date Time Temp Pulse Resp B/P (MAP) Pulse Ox O2 Delivery O2 Flow Rate FiO2 03/21/25 11:15 74 115/78 03/21/25 08:33 97.8 20 99 97.8 03/21/25 03:35 Nasal Cannula* 2 28 Exam HEENT pupils are reactive Neck is supple CV is S1-S2 regular rate and rhythm Respiratory diminished breath sounds bases GI positive bowel sound Extremity no edema [employer] no motor deficit Medications Current Medications Medications Dose Ordered Sig/Brian Route Start Time Stop Time Status Last Admin Dose Admin Aspirin 81 mg DAILY PO 03/21/25 10:00 03/21/25 10:15 81 MG Carvedilol 3.125 mg Q12HR PO 03/21/25 10:00 03/21/25 10:15 3.125 MG Ibuprofen 600 mg Q8HP PRN PO 03/20/25 23:30 Atorvastatin Calcium 10 mg HS PO 03/21/25 22:00 Furosemide 40 mg DAILY IV 03/21/25 10:00 03/21/25 10:16 40 MG Sodium Chloride 10 ml Q8HR IV 03/21/25 06:00 03/21/25 14:20 10 ML Acetaminophen/ Hydrocodone Bitart 1 tab Q4HP PRN PO 03/20/25 23:30 03/21/25 10:23 1 TAB Ondansetron HCl 4 mg Q4HP PRN IV 03/20/25 23:30 03/21/25 03:54 4 MG Docusate Sodium 100 mg BIDPRN PRN PO 03/20/25 23:30 Nitroglycerin 0.4 mg Q5MINP PRN SL 03/20/25 23:30 Morphine Sulfate 2 mg Q30M PRN IV 03/20/25 23:30 03/21/25 00:35 2 MG Famotidine 20 mg Q12HR IV 03/21/25 10:00 03/21/25 10:15 20 MG Laboratory Results Laboratory Tests 03/21/25 04:48 Chemistry Test 03/20/25 20:11 03/21/25 04:48 Albumin 4.3 g/dL (3.2-4.8) 4.2 g/dL (3.2-4.8) Calcium Level 8.9 mg/dL (8.7-10.4) 9.3 mg/dL (8.7-10.4) Total Protein 7.0 g/dL (5.7-8.2) 6.8 g/dL (5.7-8.2) Cardiac Markers Test 03/20/25 20:11 B-Type Natriuretic Peptide 1935.72 pg/mL (0-100) LFT Test 03/20/25 20:11 03/21/25 04:48 Alanine Aminotransferase (ALT) 41 U/L (7-40) H 34 U/L (7-40) Alkaline Phosphatase 219 U/L (46-116) H 207 U/L (46-116) H Aspartate Amino Transferase (AST) 70 U/L (13-40) H 51 U/L (13-40) H Total Bilirubin 4.5 mg/dL (0.2-1.0) H 4.7 mg/dL (0.2-1.0) H Urinalysis Test 03/20/25 20:16 Urine Color Yellow (Yellow) Urine Clarity Clear (Clear) Urine pH 5.5 (5.0-9.0) Urine Specific [place] 1.017 (1.001-1.035) Urine Protein Trace (Negative) H Urine Ketones Negative (Negative) Urine Blood Negative /uL (Negative) Urine Nitrite Negative (Negative) Urine Bilirubin Negative (Negative) Urine Urobilinogen 6 mg/dL (Negative) Urine Leukocyte Esterase Negative /uL (Negative) Urine RBC <1 /hpf (0 - 3) Urine Microscopic WBC 1 /HPF (0-3) Urine Squamous Epithelial Cells None seen /hpf (<5) Urine Bacteria None seen /hpf (None Seen) Urine Glucose Normal mg/dL (Normal) Assessment/Plan Assessment/Plan 65-year-old male with a known history of congestive heart failure with a end- stage cardiomyopathy, hypertension, dyslipidemia, status post pacemaker, CKD, liver disease, previous history of illicit drug use, sober for 30 years presented to the hospital with a dizziness chest pain shortness of breaths found to have 1. Acute on chronic congestive heart failure exacerbation with a systolic dysfunction 2. End-stage heart disease with a cardiomyopathy with the EF of less than 10% 3. Status post pacemaker/AICD 4. Hypertension 5. Dyslipidemia 6. Hepatic steatosis/liver cirrhosis -IV diuretics, heart failure medications, PT evaluation and treatment, discharge plan. Plan discussed with: Patient Date of Service: Mar 21, 2025 Billing Provider: YUN ZAMAN MD Common Visit Codes: [id number] INP/OBS CARE(MOD) YUN ZAMAN MD Mar 21, 2025 14:29
[2025-03-21] MEDS: ATORVASTATIN 20 MG TAB PO SCH (22:17)
[2025-03-22] VITALS (7 sets, daily range): BP systolic 104–146; BP diastolic 66–90; PULSE 54–70; RESP 17–20; TEMP 96.3–98.1; O2SAT 90–100
--- NOTE | 2025-03-22 17:54 | DVHPN2 ---
Subjective Patient is complaining of dizziness. Patient does have end-stage heart disease. Changes from previous H/P or p: No Changes Eyes: No Pain, No Vision change, No Conjunctivae inflammation, No Eyelid inflammation, No Other, No Redness ENT: No Ear pain, No Ear discharge, No Nose pain, No Nose discharge, No Nose congestion, No Mouth pain, No Mouth swelling, No Throat pain, No Throat swelling, No Other Cardiovascular: Chest Pain; No Palpitations, No Orthopnea, No Paroxysmal Noc. Dyspnea, No Edema, No Lt Headedness, No Other Respiratory: No Cough, No Dry; Shortness of breath; No SOB with excertion, No Wheezing, No Hemoptysis, No Pleuritic Pain, No Sputum; Other (SOB at rest) Gastrointestinal: No Nausea, No Vomiting, No Abdominal Pain, No Diarrhea, No Constipation, No Melena, No Hematochezia, No Other Genitourinary: No Dysuria, No Frequency, No Incontinence, No Hematuria, No Retention, No Other Musculoskeletal: No other, No neck pain, No shoulder pain, No arm pain, No back pain, No hand pain, No leg pain, No foot pain Skin: No Rash, No Lesions, No Jaundice, No Bruising, No Other Objective Vitals Vital Signs Date Time Temp Pulse Resp B/P (MAP) Pulse Ox O2 Delivery O2 Flow Rate FiO2 03/22/25 17:00 96.6 70 18 146/90 (108) 96 96.6 03/22/25 08:25 Room Air* 0 21 Intake/Output Intake and Output 03/22/25 07:00 Intake Total 120 ml Balance 120 ml Intake Oral 120 ml # Voids 1 Exam HEENT pupils are reactive Neck is supple CV is S1-S2 regular rate and rhythm Respiratory diminished breath sounds bases GI positive bowel sound Extremity no edema [employer] no motor deficit Medications Current Medications Medications Dose Ordered Sig/Brian Route Start Time Stop Time Status Last Admin Dose Admin Aspirin 81 mg DAILY PO 03/21/25 10:00 03/22/25 09:29 81 MG Carvedilol 3.125 mg Q12HR PO 03/21/25 10:00 03/22/25 09:27 3.125 MG Ibuprofen 600 mg Q8HP PRN PO 03/20/25 23:30 Atorvastatin Calcium 10 mg HS PO 03/21/25 22:00 03/21/25 22:17 10 MG Furosemide 40 mg DAILY IV 03/21/25 10:00 03/22/25 09:33 40 MG Sodium Chloride 10 ml Q8HR IV 03/21/25 06:00 03/22/25 14:00 10 ML Acetaminophen/ Hydrocodone Bitart 1 tab Q4HP PRN PO 03/20/25 23:30 03/21/25 17:23 1 TAB Ondansetron HCl 4 mg Q4HP PRN IV 03/20/25 23:30 03/21/25 03:54 4 MG Docusate Sodium 100 mg BIDPRN PRN PO 03/20/25 23:30 Nitroglycerin 0.4 mg Q5MINP PRN SL 03/20/25 23:30 Morphine Sulfate 2 mg Q30M PRN IV 03/20/25 23:30 03/21/25 00:35 2 MG Famotidine 20 mg Q12HR IV 03/21/25 10:00 03/22/25 09:30 20 MG Laboratory Results Laboratory Tests 03/21/25 04:48 Urinalysis Test 03/20/25 20:16 Urine Color Yellow (Yellow) Urine Clarity Clear (Clear) Urine pH 5.5 (5.0-9.0) Urine Specific [place] 1.017 (1.001-1.035) Urine Protein Trace (Negative) H Urine Ketones Negative (Negative) Urine Blood Negative /uL (Negative) Urine Nitrite Negative (Negative) Urine Bilirubin Negative (Negative) Urine Urobilinogen 6 mg/dL (Negative) Urine Leukocyte Esterase Negative /uL (Negative) Urine RBC <1 /hpf (0 - 3) Urine Microscopic WBC 1 /HPF (0-3) Urine Squamous Epithelial Cells None seen /hpf (<5) Urine Bacteria None seen /hpf (None Seen) Urine Glucose Normal mg/dL (Normal) Assessment/Plan Assessment/Plan 65-year-old male with a known history of congestive heart failure with a end- stage cardiomyopathy, hypertension, dyslipidemia, status post pacemaker, CKD, liver disease, previous history of illicit drug use, sober for 30 years presented to the hospital with a dizziness chest pain shortness of breaths found to have 1. Acute on chronic congestive heart failure exacerbation with a systolic dysfunction 2. End-stage heart disease with a cardiomyopathy with the EF of less than 10% 3. Status post pacemaker/AICD 4. Hypertension 5. Dyslipidemia 6. Hepatic steatosis/liver cirrhosis -IV diuretics, heart failure medications, PT evaluation and treatment, discharge plan. Plan discussed with: Patient Date of Service: Mar 22, 2025 Billing Provider: YUN ZAMAN MD Common Visit Codes: [id number] INP/OBS CARE(MOD) YUN ZAMAN MD Mar 22, 2025 17:54
[2025-03-23] VITALS (17 sets, daily range): BP systolic 100–146; BP diastolic 62–90; PULSE 58–94; RESP 16–20; TEMP 96.6–98.9; O2SAT 65–100
[2025-03-23] MEDS: MELATONIN 5 MG TAB PO ONE (01:46)
[2025-03-23] MEDS: ALBUTEROL SULF 2.5 MG/0.5ML(0.5%) NEB SOLN NEB PRN (02:14)
--- NOTE | 2025-03-23 13:25 | DVH ---
CLINICAL HISTORY: s/p fall per Dr Lamb TECHNIQUE: Helical scanning was performed of the head from the skull base to the vertex. Multiplanar reconstructions were performed. This exam was performed according to our departmental dose optimizat ion program. Up-to-date CT equipment and radiation dose reduction techniques are utilized as appropri ate. CTDI 57.8 DLP 07/23/36 .7 COMPARISON: CT STROKE CTH on DOS: 05/10/24 FINDINGS: Evaluation is mildly limited due to motion artifact. There is no evidence for acute intracranial hemorrhage, acute ischemic changes, mass, mass effect, or extra-axial fluid collection. There is no hydrocephalus or midline shift. There is no effacement of the cerebral sulci and basal subarachnoid cisterns. The raymundo-white matter differentiation is well priscilla ntained. There is a small old left parietal lobe infarct. The imaged paranasal sinuses are clear. IMPRESSION: NO ACUTE INTRACRANIAL ABNORMALITY SEEN. SMALL OLD LEFT PARIETAL LOBE INFARCT.
--- NOTE | 2025-03-23 13:26 | ECG ---
[facility] Test Date: 2025-03-20 Test Time: 20:11:41 Pat Name: SUHAIL VILLALTA Department: ED Room: 0222T A Gender: M Resolution Analyst: ph : 1960 Requested By: BOB JACKSON Order Number: [id number] Reading MD: Adrián Mock Measurements Intervals [place] Rate: 86 P: 44 DE: 216 QRS: -72 QRSD: 171 T: 98 QT: 445 QTc: 533 Interpretive Statements Sinus rhythm Borderline prolonged DE interval Nonspecific IVCD with LAD LVH with secondary repolarization abnormality Inferior infarct, acute (RCA) Anterior Q waves, possibly due to LVH Probable RV involvement, suggest recording right precordial leads Baseline wander in lead(s) V4 Electronically Signed On 03-26-2025 14:50:01 PDT by Adrián Mock Please click the below link to view image of tracing.
--- NOTE | 2025-03-23 13:44 | DVH ---
CLINICAL INDICATION: s/p fall per Dr Lamb TECHNIQUE: 2 radiographic views of the left shoulder were obtained. Comparison: Chest radiograph 03/20/2025 FINDINGS/IMPRESSION: There is no evidence of acute fracture or dislocation. Mild degenerative changes of the glenohumeral joint. Moderate cardiomegaly with partially imaged left-sided approach biventricular lead AICD with a fractu red lead which was noted on prior imaging. Pulmonary vascular congestion with the partially visualize d lungs.
--- NOTE | 2025-03-23 17:45 | DVHPN2 ---
Subjective Patient has had a mechanical fall today fall onto left shoulder and left-sided of the head. CT head reviewed and negative for any acute pathology, shoulder x- ray shows no evidence of any acute fracture Changes from previous H/P or p: No Changes Eyes: No Pain, No Vision change, No Conjunctivae inflammation, No Eyelid inflammation, No Other, No Redness ENT: No Ear pain, No Ear discharge, No Nose pain, No Nose discharge, No Nose congestion, No Mouth pain, No Mouth swelling, No Throat pain, No Throat swelling, No Other Cardiovascular: Chest Pain; No Palpitations, No Orthopnea, No Paroxysmal Noc. Dyspnea, No Edema, No Lt Headedness, No Other Respiratory: No Cough, No Dry; Shortness of breath; No SOB with excertion, No Wheezing, No Hemoptysis, No Pleuritic Pain, No Sputum; Other (SOB at rest) Gastrointestinal: No Nausea, No Vomiting, No Abdominal Pain, No Diarrhea, No Constipation, No Melena, No Hematochezia, No Other Genitourinary: No Dysuria, No Frequency, No Incontinence, No Hematuria, No Retention, No Other Musculoskeletal: No other, No neck pain, No shoulder pain, No arm pain, No back pain, No hand pain, No leg pain, No foot pain Skin: No Rash, No Lesions, No Jaundice, No Bruising, No Other Objective Vitals Vital Signs Date Time Temp Pulse Resp B/P (MAP) Pulse Ox O2 Delivery O2 Flow Rate FiO2 03/23/25 13:00 97.6 61 20 116/74 (88) 100 97.6 03/23/25 10:00 Nasal Cannula* 2 28 Intake/Output Intake and Output 03/23/25 07:00 Intake Total 1073 ml Balance 1073 ml Intake Oral 1073 ml # Voids 6 # Bowel Movements 2 Exam HEENT pupils are reactive Neck is supple CV is S1-S2 regular rate and rhythm Respiratory diminished breath sounds bases GI positive bowel sound 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 Medications Current Medications Medications Dose Ordered Sig/Brian Route Start Time Stop Time Status Last Admin Dose Admin Aspirin 81 mg DAILY PO 03/21/25 10:00 03/23/25 10:17 81 MG Carvedilol 3.125 mg Q12HR PO 03/21/25 10:00 03/23/25 10:18 3.125 MG Ibuprofen 600 mg Q8HP PRN PO 03/20/25 23:30 Atorvastatin Calcium 10 mg HS PO 03/21/25 22:00 03/22/25 21:32 10 MG Furosemide 40 mg DAILY IV 03/21/25 10:00 03/23/25 10:17 40 MG Sodium Chloride 10 ml Q8HR IV 03/21/25 06:00 03/23/25 14:00 10 ML Acetaminophen/ Hydrocodone Bitart 1 tab Q4HP PRN PO 03/20/25 23:30 03/23/25 16:11 1 TAB Ondansetron HCl 4 mg Q4HP PRN IV 03/20/25 23:30 03/23/25 01:47 4 MG Docusate Sodium 100 mg BIDPRN PRN PO 03/20/25 23:30 Nitroglycerin 0.4 mg Q5MINP PRN SL 03/20/25 23:30 Morphine Sulfate 2 mg Q30M PRN IV 03/20/25 23:30 03/21/25 00:35 2 MG Famotidine 20 mg Q12HR IV 03/21/25 10:00 03/23/25 10:17 20 MG Albuterol 2.5 mg Q6HPRN PRN NEB 03/23/25 01:30 03/23/25 06:35 2.5 MG Laboratory Results Laboratory Tests 03/21/25 04:48 Urinalysis Test 03/20/25 20:16 Urine Color Yellow (Yellow) Urine Clarity Clear (Clear) Urine pH 5.5 (5.0-9.0) Urine Specific [place] 1.017 (1.001-1.035) Urine Protein Trace (Negative) H Urine Ketones Negative (Negative) Urine Blood Negative /uL (Negative) Urine Nitrite Negative (Negative) Urine Bilirubin Negative (Negative) Urine Urobilinogen 6 mg/dL (Negative) Urine Leukocyte Esterase Negative /uL (Negative) Urine RBC <1 /hpf (0 - 3) Urine Microscopic WBC 1 /HPF (0-3) Urine Squamous Epithelial Cells None seen /hpf (<5) Urine Bacteria None seen /hpf (None Seen) Urine Glucose Normal mg/dL (Normal) Assessment/Plan Assessment/Plan 65-year-old male with a known history of congestive heart failure with a end- stage cardiomyopathy, hypertension, dyslipidemia, status post pacemaker, CKD, liver disease, previous history of illicit drug use, sober for 30 years presented to the hospital with a dizziness chest pain shortness of breaths found to have 1. Acute on chronic congestive heart failure exacerbation with a systolic dysfunction 2. End-stage heart disease with a cardiomyopathy with the EF of less than 10% 3. Status post pacemaker/AICD 4. Hypertension 5. Dyslipidemia 6. Hepatic steatosis/liver cirrhosis -IV diuretics, heart failure medications, PT evaluation and treatment, discharge plan. Plan discussed with: Patient My Orders Orders - YUN ZAMAN MD Procedure Category Date Status Time Head Without Contrast CT 03/23/25 Resulted 11:53 L Shoulder 2+ View XY 03/23/25 Resulted Xray 11:53 Date of Service: Mar 23, 2025 Billing Provider: YUN ZAMAN MD Common Visit Codes: [id number] INP/OBS CARE(MOD) YUN ZAMAN MD Mar 23, 2025 17:45
[2025-03-24] VITALS (14 sets, daily range): BP systolic 100–127; BP diastolic 71–79; PULSE 54–76; RESP 16–20; TEMP 97.3–97.9; O2SAT 96–100
--- NOTE | 2025-03-24 12:43 | ECG ---
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
[2025-03-24 17:34] LABS: INR 1.94 (0.9-1.15); Prothrombin Time 19.3 sec (9.3-11.8)
--- NOTE | 2025-03-24 18:11 | DVHPN2 ---
Subjective Complaining of bloating, ultrasound has been ordered to assess for any ascites. Changes from previous H/P or p: No Changes Eyes: No Pain, No Vision change, No Conjunctivae inflammation, No Eyelid inflammation, No Other, No Redness ENT: No Ear pain, No Ear discharge, No Nose pain, No Nose discharge, No Nose congestion, No Mouth pain, No Mouth swelling, No Throat pain, No Throat swelling, No Other Cardiovascular: Chest Pain; No Palpitations, No Orthopnea, No Paroxysmal Noc. Dyspnea, No Edema, No Lt Headedness, No Other Respiratory: No Cough, No Dry; Shortness of breath; No SOB with excertion, No Wheezing, No Hemoptysis, No Pleuritic Pain, No Sputum; Other (SOB at rest) Gastrointestinal: No Nausea, No Vomiting, No Abdominal Pain, No Diarrhea, No Constipation, No Melena, No Hematochezia, No Other Genitourinary: No Dysuria, No Frequency, No Incontinence, No Hematuria, No Retention, No Other Musculoskeletal: No other, No neck pain, No shoulder pain, No arm pain, No back pain, No hand pain, No leg pain, No foot pain Skin: No Rash, No Lesions, No Jaundice, No Bruising, No Other Objective Vitals Vital Signs Date Time Temp Pulse Resp B/P (MAP) Pulse Ox O2 Delivery O2 Flow Rate FiO2 03/24/25 17:00 97.3 76 20 100/71 (81) 96 97.3 03/24/25 15:25 Nasal Cannula* 2 28 Exam HEENT pupils are reactive Neck is supple CV is S1-S2 regular rate and rhythm Respiratory diminished breath sounds bases GI positive bowel sound 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 Medications Current Medications Medications Dose Ordered Sig/Brian Route Start Time Stop Time Status Last Admin Dose Admin Aspirin 81 mg DAILY PO 03/21/25 10:00 03/24/25 10:03 81 MG Carvedilol 3.125 mg Q12HR PO 03/21/25 10:00 03/24/25 10:03 3.125 MG Ibuprofen 600 mg Q8HP PRN PO 03/20/25 23:30 Atorvastatin Calcium 10 mg HS PO 03/21/25 22:00 03/23/25 21:35 10 MG Furosemide 40 mg DAILY IV 03/21/25 10:00 03/24/25 10:04 40 MG Sodium Chloride 10 ml Q8HR IV 03/21/25 06:00 03/24/25 14:00 10 ML Acetaminophen/ Hydrocodone Bitart 1 tab Q4HP PRN PO 03/20/25 23:30 03/24/25 15:51 1 TAB Ondansetron HCl 4 mg Q4HP PRN IV 03/20/25 23:30 03/23/25 01:47 4 MG Docusate Sodium 100 mg BIDPRN PRN PO 03/20/25 23:30 Nitroglycerin 0.4 mg Q5MINP PRN SL 03/20/25 23:30 Morphine Sulfate 2 mg Q30M PRN IV 03/20/25 23:30 03/21/25 00:35 2 MG Famotidine 20 mg Q12HR IV 03/21/25 10:00 03/24/25 10:03 20 MG Albuterol 2.5 mg Q6HPRN PRN NEB 03/23/25 01:30 03/24/25 15:25 2.5 MG Laboratory Results Laboratory Tests 03/21/25 04:48 Coagulation Test 03/24/25 16:24 Prothrombin Time 19.3 sec (9.3-11.8) H Prothrombin Time INR 1.94 (0.9-1.15) H Urinalysis Test 03/20/25 20:16 Urine Color Yellow (Yellow) Urine Clarity Clear (Clear) Urine pH 5.5 (5.0-9.0) Urine Specific [place] 1.017 (1.001-1.035) Urine Protein Trace (Negative) H Urine Ketones Negative (Negative) Urine Blood Negative /uL (Negative) Urine Nitrite Negative (Negative) Urine Bilirubin Negative (Negative) Urine Urobilinogen 6 mg/dL (Negative) Urine Leukocyte Esterase Negative /uL (Negative) Urine RBC <1 /hpf (0 - 3) Urine Microscopic WBC 1 /HPF (0-3) Urine Squamous Epithelial Cells None seen /hpf (<5) Urine Bacteria None seen /hpf (None Seen) Urine Glucose Normal mg/dL (Normal) Assessment/Plan Assessment/Plan 65-year-old male with a known history of congestive heart failure with a end- stage cardiomyopathy, hypertension, dyslipidemia, status post pacemaker, CKD, liver disease, previous history of illicit drug use, sober for 30 years presented to the hospital with a dizziness chest pain shortness of breaths found to have 1. Acute on chronic congestive heart failure exacerbation with a systolic dysfunction 2. End-stage heart disease with a cardiomyopathy with the EF of less than 10% 3. Status post pacemaker/AICD 4. Hypertension 5. Dyslipidemia 6. Hepatic steatosis/liver cirrhosis -IV diuretics, heart failure medications, PT evaluation and treatment, discharge plan. Plan discussed with: Patient My Orders Orders - YUN ZAMAN MD Procedure Category Date Status Time * Radiologist Consult CONS 03/24/25 Transmitted 15:53 Date of Service: Mar 24, 2025 Billing Provider: YUN ZAMAN MD Common Visit Codes: [id number] INP/OBS CARE(MOD) YUN ZAMAN MD Mar 24, 2025 18:11
[2025-03-25] VITALS (12 sets, daily range): BP systolic 103–123; BP diastolic 62–83; PULSE 64–86; RESP 16–20; TEMP 97.2–98.6; O2SAT 95–100
--- NOTE | 2025-03-25 07:50 | DVH ---
Limited Abdominal Ultrasound - Ascites Evaluation Date: 03/25/2025 07:40 AM Clinical History: fluid check eval for para Comparison: US GALLBLADDER on DOS: 03/20/25, US LIVER on DOS: 03/06/25, US GALLBLADDER on DOS: 02/06/24, US ABDOMEN COMPLETE on DOS: 02/13/23, US ABDOMEN LIMITED on DOS: 02/01/23 Findings: Limited sonographic evaluation of the abdomen was performed to assess for ascites. There is mild amount of ascites detected. IMPRESSION: Small volume ascites. END IMPRESSION:
--- NOTE | 2025-03-25 13:38 | DVHDS2 ---
Discharge Summary Date of Admission Mar 20, 2025 at 23:26 Date of Discharge: Mar 25, 2025 Labs/Diagnostic Data: Laboratory Results Test 03/24/25 16:24 03/21/25 04:48 03/20/25 21:06 03/20/25 20:16 Prothrombin Time 19.3 sec (9.3-11.8) Prothrombin Time INR 1.94 (0.9-1.15) White Blood Count 5.4 10^3/uL (4.4-10.8) Red Blood Count 4.42 10^6/uL (4.5-5.90) Hemoglobin 14.0 g/dL (13.5-17.5) Hematocrit 41.3 % (41.0-53.0) Mean Corpuscular Volume 93.5 fL (80.0-100.0) Mean Corpuscular Hemoglobin 31.7 pg (28.0-32.0) Mean Corpuscular Hemoglobin Concent 33.9 g/dL (32.0-36.0) Red Cell Distribution Width 20.0 % (11.8-14.3) Platelet Count 194 10^3/uL (140-450) Mean Platelet Volume 8.4 fL (6.9-10.8) Neutrophils (%) (Auto) 71.8 % (37.0-80.0) Lymphocytes (%) (Auto) 12.7 % (10.0-50.0) Monocytes (%) (Auto) 13.6 % (0.0-12.0) Eosinophils (%) (Auto) 1.1 % (0.0-7.0) Basophils (%) (Auto) 0.8 % (0.0-2.0) Neutrophils # (Auto) 3.9 10 ^3/uL (1.6-8.6) Lymphocytes # (Auto) 0.7 10 ^3/uL (0.4-5.4) Monocytes # (Auto) 0.7 10 ^3/uL (0-1.3) Eosinophils # (Auto) 0.1 10 ^3/uL (0-0.8) Basophils # (Auto) 0 10 ^3/uL (0-0.2) Nucleated Red Blood Cells 0.2 % Sodium Level 132 mmol/L (136-145) Potassium Level 3.9 mmol/L (3.5-5.1) Chloride Level 97 mmol/L (98-107) Carbon Dioxide Level 26 mmol/L (20-31) Anion Gap 9 (5-15) Blood Urea Nitrogen 21 mg/dL (9-23) Creatinine 1.41 mg/dL (0.700-1.30) Glomerular Filtration Rate Calc 56 mL/min (>90) BUN/Creatinine Ratio 14.9 (10.0-20.0) Serum Glucose 111 mg/dL (74-106) Calcium Level 9.3 mg/dL (8.7-10.4) Total Bilirubin 4.7 mg/dL (0.2-1.0) Aspartate Amino Transferase (AST) 51 U/L (13-40) Alanine Aminotransferase (ALT) 34 U/L (7-40) Alkaline Phosphatase 207 U/L (46-116) Total Protein 6.8 g/dL (5.7-8.2) Albumin 4.2 g/dL (3.2-4.8) Troponin I High Sensitivity 25 ng/L (</=54) Urine Color Yellow (Yellow) Urine Clarity Clear (Clear) Urine pH 5.5 (5.0-9.0) Urine Specific [place] 1.017 (1.001-1.035) Urine Protein Trace (Negative) Urine Ketones Negative (Negative) Urine Blood Negative /uL (Negative) Urine Nitrite Negative (Negative) Urine Bilirubin Negative (Negative) Urine Urobilinogen 6 mg/dL (Negative) Urine Leukocyte Esterase Negative /uL (Negative) Urine RBC <1 /hpf (0 - 3) Urine Microscopic WBC 1 /HPF (0-3) Urine Squamous Epithelial Cells None seen /hpf (<5) Urine Bacteria None seen /hpf (None Seen) Urine Glucose Normal mg/dL (Normal) Test 03/20/25 20:11 Ammonia 29 umol/L (11-32) B-Type Natriuretic Peptide 1935.72 pg/mL (0-100) Plasma/Serum Blood Alcohol < 3.0 mg/dL (<10) Other Laboratory Tests 03/21/25 04:48 Final Diagnosis/Problems List 65-year-old male with a known history of congestive heart failure with a end-stage cardiomyopathy, hypertension, dyslipidemia, status post pacemaker, CKD, liver disease, previous history of illicit drug use, sober for 30 years presented to the hospital with a dizziness chest pain shortness of breaths found to have 1. Acute on chronic congestive heart failure exacerbation with a systolic dysfunction 2. End-stage heart disease with a cardiomyopathy with the EF of less than 10% 3. Status post pacemaker/AICD 4. Hypertension 5. Dyslipidemia 6. Hepatic steatosis/liver cirrhosis Discharge Disposition: Home Discharge Instruct/Medications Diet: Cardiac 2g Na,low cholest Activity: No Restrictions, As Tolerated Follow Up/Referral: Follow up with the PCP and Cardiology in one week. Medications: Resume home medications. Scheduled Amiodarone HCl (Amiodarone HCl), 1 TAB PO BID, (Reported) Aspirin (Aspir-Low), 81 MG PO DAILY, (Reported) Aspirin (Aspirin Low Dose), 1 DAILY, (Reported) Bumetanide (Bumetanide), 1 TAB PO BID, (Reported) Carvedilol (Carvedilol), 1 TAB PO BID, (Reported) Cholecalciferol (Vitamin D3), 1 TAB PO DAILY, (Reported) Dapagliflozin Propanediol (Farxiga), 10 MG PO DAILY, (Reported) Digoxin (Digoxin), 1 TAB PO DAILY, (Reported) Famotidine (Pepcid Tablet), 1 TAB PO BID Ivabradine Hydrochloride (Corlanor), 1 TAB PO BID, (Reported) Midodrine HCl (Midodrine Hydrochloride), 2 TAB PO TID, (Reported) Nitroglycerin (Ntrostat Sublingual), 0.4 MG SL PRN, (Reported) Pantoprazole Sodium Sesquihydr (Pantoprazole Sodium), 40 MG PO DAILY, (Reported) Potassium Chloride (Potassium Chloride ER), 20 MEQ PO DAILY Simvastatin (Simvastatin), 10 MG PO DAILY, (Reported) Spironolactone (Spironolactone), 1 TAB PO DAILY, (Reported) Vericiguat (Verquvo), 1 TAB PO DAILY, (Reported) Miscellaneous Medications Mexiletine HCl (Mexiletine Hydrochloride), 1, (Reported) Discharge Statement: "Patient was advised to return to the ER or call 911 if any headaches, dizziness, shortness of breath, chest pain, abdominal pain, bleeding, fevers, or worsening of medical condition. Patient was counseled about treatment plan, medications, possible side effects, patientverbalized understanding. All questions were answered to the best of my ability. This discharge took greater then 30 minutes in planning, reviewing documentation, counseling the patient, and discussing with other team members." ASSESSMENT ASSESSMENT Assessment 65-year-old male with a known history of congestive heart failure with a end- stage cardiomyopathy, hypertension, dyslipidemia, status post pacemaker, CKD, liver disease, previous history of illicit drug use, sober for 30 years presented to the hospital with a dizziness chest pain shortness of breaths found to have 1. Acute on chronic congestive heart failure exacerbation with a systolic dysfunction 2. End-stage heart disease with a cardiomyopathy with the EF of less than 10% 3. Status post pacemaker/AICD 4. Hypertension 5. Dyslipidemia 6. Hepatic steatosis/liver cirrhosis YUN ZAMAN MD Mar 25, 2025 13:37
--- NOTE | 2025-03-25 16:56 | DVHPN2 ---
Subjective Complaining of bloating, ultrasound has been ordered to assess for any ascites. Changes from previous H/P or p: No Changes Eyes: No Pain, No Vision change, No Conjunctivae inflammation, No Eyelid inflammation, No Other, No Redness ENT: No Ear pain, No Ear discharge, No Nose pain, No Nose discharge, No Nose congestion, No Mouth pain, No Mouth swelling, No Throat pain, No Throat swelling, No Other Cardiovascular: Chest Pain; No Palpitations, No Orthopnea, No Paroxysmal Noc. Dyspnea, No Edema, No Lt Headedness, No Other Respiratory: No Cough, No Dry; Shortness of breath; No SOB with excertion, No Wheezing, No Hemoptysis, No Pleuritic Pain, No Sputum; Other (SOB at rest) Gastrointestinal: No Nausea, No Vomiting, No Abdominal Pain, No Diarrhea, No Constipation, No Melena, No Hematochezia, No Other Genitourinary: No Dysuria, No Frequency, No Incontinence, No Hematuria, No Retention, No Other Musculoskeletal: No other, No neck pain, No shoulder pain, No arm pain, No back pain, No hand pain, No leg pain, No foot pain Skin: No Rash, No Lesions, No Jaundice, No Bruising, No Other Objective Vitals Vital Signs Date Time Temp Pulse Resp B/P (MAP) Pulse Ox O2 Delivery O2 Flow Rate FiO2 03/25/25 16:43 97.4 64 18 118/83 (95) 98 97.4 03/25/25 14:27 Nasal Cannula* 2 28 Intake/Output Intake and Output 03/25/25 07:00 Intake Total 700 ml Balance 700 ml Intake Oral 700 ml # Voids 3 Exam HEENT pupils are reactive Neck is supple CV is S1-S2 regular rate and rhythm Respiratory diminished breath sounds bases GI positive bowel sound 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 Medications Current Medications Medications Dose Ordered Sig/Brian Route Start Time Stop Time Status Last Admin Dose Admin Aspirin 81 mg DAILY PO 03/21/25 10:00 03/25/25 10:41 81 MG Carvedilol 3.125 mg Q12HR PO 03/21/25 10:00 03/25/25 10:41 3.125 MG Ibuprofen 600 mg Q8HP PRN PO 03/20/25 23:30 Atorvastatin Calcium 10 mg HS PO 03/21/25 22:00 03/24/25 21:49 10 MG Furosemide 40 mg DAILY IV 03/21/25 10:00 03/25/25 11:58 40 MG Sodium Chloride 10 ml Q8HR IV 03/21/25 06:00 03/25/25 14:23 10 ML Acetaminophen/ Hydrocodone Bitart 1 tab Q4HP PRN PO 03/20/25 23:30 03/25/25 11:57 1 TAB Ondansetron HCl 4 mg Q4HP PRN IV 03/20/25 23:30 03/23/25 01:47 4 MG Docusate Sodium 100 mg BIDPRN PRN PO 03/20/25 23:30 Nitroglycerin 0.4 mg Q5MINP PRN SL 03/20/25 23:30 Morphine Sulfate 2 mg Q30M PRN IV 03/20/25 23:30 03/21/25 00:35 2 MG Famotidine 20 mg Q12HR IV 03/21/25 10:00 03/25/25 12:00 20 MG Albuterol 2.5 mg Q6HPRN PRN NEB 03/23/25 01:30 03/24/25 23:20 2.5 MG Laboratory Results Laboratory Tests 03/21/25 04:48 Urinalysis Test 03/20/25 20:16 Urine Color Yellow (Yellow) Urine Clarity Clear (Clear) Urine pH 5.5 (5.0-9.0) Urine Specific [place] 1.017 (1.001-1.035) Urine Protein Trace (Negative) H Urine Ketones Negative (Negative) Urine Blood Negative /uL (Negative) Urine Nitrite Negative (Negative) Urine Bilirubin Negative (Negative) Urine Urobilinogen 6 mg/dL (Negative) Urine Leukocyte Esterase Negative /uL (Negative) Urine RBC <1 /hpf (0 - 3) Urine Microscopic WBC 1 /HPF (0-3) Urine Squamous Epithelial Cells None seen /hpf (<5) Urine Bacteria None seen /hpf (None Seen) Urine Glucose Normal mg/dL (Normal) Assessment/Plan Assessment/Plan 65-year-old male with a known history of congestive heart failure with a end- stage cardiomyopathy, hypertension, dyslipidemia, status post pacemaker, CKD, liver disease, previous history of illicit drug use, sober for 30 years presented to the hospital with a dizziness chest pain shortness of breaths found to have 1. Acute on chronic congestive heart failure exacerbation with a systolic dysfunction 2. End-stage heart disease with a cardiomyopathy with the EF of less than 10% 3. Status post pacemaker/AICD 4. Hypertension 5. Dyslipidemia 6. Hepatic steatosis/liver cirrhosis -IV diuretics, heart failure medications, PT evaluation and treatment, discharge plan. Plan discussed with: Patient My Orders Orders - YUN ZAMAN MD Procedure Category Date Status Time Abdomen Limited US 03/25/25 Resulted 07:14 Discharge DISCHARGE 03/26/25 Transmitted 13:35 Date of Service: Mar 25, 2025 Billing Provider: YUN ZAMAN MD Common Visit Codes: [id number] INP/OBS CARE(MOD) YUN ZAMAN MD Mar 25, 2025 16:56
[2025-03-25] MEDS: MELATONIN 5 MG TAB PO ONE (23:17)
[2025-03-26] VITALS (9 sets, daily range): BP systolic 109–122; BP diastolic 69–87; PULSE 58–71; RESP 16–20; TEMP 36.8; O2SAT 95–100
--- NOTE | 2025-03-26 13:11 | DVHDS2 ---
Discharge Summary Date of Admission Mar 20, 2025 at 23:26 Date of Discharge: Mar 25, 2025 Labs/Diagnostic Data: Laboratory Results Test 03/24/25 16:24 03/21/25 04:48 03/20/25 21:06 03/20/25 20:16 Prothrombin Time 19.3 sec (9.3-11.8) Prothrombin Time INR 1.94 (0.9-1.15) White Blood Count 5.4 10^3/uL (4.4-10.8) Red Blood Count 4.42 10^6/uL (4.5-5.90) Hemoglobin 14.0 g/dL (13.5-17.5) Hematocrit 41.3 % (41.0-53.0) Mean Corpuscular Volume 93.5 fL (80.0-100.0) Mean Corpuscular Hemoglobin 31.7 pg (28.0-32.0) Mean Corpuscular Hemoglobin Concent 33.9 g/dL (32.0-36.0) Red Cell Distribution Width 20.0 % (11.8-14.3) Platelet Count 194 10^3/uL (140-450) Mean Platelet Volume 8.4 fL (6.9-10.8) Neutrophils (%) (Auto) 71.8 % (37.0-80.0) Lymphocytes (%) (Auto) 12.7 % (10.0-50.0) Monocytes (%) (Auto) 13.6 % (0.0-12.0) Eosinophils (%) (Auto) 1.1 % (0.0-7.0) Basophils (%) (Auto) 0.8 % (0.0-2.0) Neutrophils # (Auto) 3.9 10 ^3/uL (1.6-8.6) Lymphocytes # (Auto) 0.7 10 ^3/uL (0.4-5.4) Monocytes # (Auto) 0.7 10 ^3/uL (0-1.3) Eosinophils # (Auto) 0.1 10 ^3/uL (0-0.8) Basophils # (Auto) 0 10 ^3/uL (0-0.2) Nucleated Red Blood Cells 0.2 % Sodium Level 132 mmol/L (136-145) Potassium Level 3.9 mmol/L (3.5-5.1) Chloride Level 97 mmol/L (98-107) Carbon Dioxide Level 26 mmol/L (20-31) Anion Gap 9 (5-15) Blood Urea Nitrogen 21 mg/dL (9-23) Creatinine 1.41 mg/dL (0.700-1.30) Glomerular Filtration Rate Calc 56 mL/min (>90) BUN/Creatinine Ratio 14.9 (10.0-20.0) Serum Glucose 111 mg/dL (74-106) Calcium Level 9.3 mg/dL (8.7-10.4) Total Bilirubin 4.7 mg/dL (0.2-1.0) Aspartate Amino Transferase (AST) 51 U/L (13-40) Alanine Aminotransferase (ALT) 34 U/L (7-40) Alkaline Phosphatase 207 U/L (46-116) Total Protein 6.8 g/dL (5.7-8.2) Albumin 4.2 g/dL (3.2-4.8) Troponin I High Sensitivity 25 ng/L (</=54) Urine Color Yellow (Yellow) Urine Clarity Clear (Clear) Urine pH 5.5 (5.0-9.0) Urine Specific [place] 1.017 (1.001-1.035) Urine Protein Trace (Negative) Urine Ketones Negative (Negative) Urine Blood Negative /uL (Negative) Urine Nitrite Negative (Negative) Urine Bilirubin Negative (Negative) Urine Urobilinogen 6 mg/dL (Negative) Urine Leukocyte Esterase Negative /uL (Negative) Urine RBC <1 /hpf (0 - 3) Urine Microscopic WBC 1 /HPF (0-3) Urine Squamous Epithelial Cells None seen /hpf (<5) Urine Bacteria None seen /hpf (None Seen) Urine Glucose Normal mg/dL (Normal) Test 03/20/25 20:11 Ammonia 29 umol/L (11-32) B-Type Natriuretic Peptide 1935.72 pg/mL (0-100) Plasma/Serum Blood Alcohol < 3.0 mg/dL (<10) Other Laboratory Tests 03/21/25 04:48 Brief Hx & Hospital Course: 65-year-old male with a known history of congestive heart failure with a end- stage cardiomyopathy, hypertension, dyslipidemia, status post pacemaker, CKD, liver disease, previous history of illicit drug use, sober for 30 years presented to the hospital with a dizziness chest pain , shortness of breaths found to have acute on chronic congestive heart failure exacerbation with systolic dysfunction. Patient also has a end-stage heart disease with a cardiomyopathy with the EF of less than 10% status post AICD. Patient was started on IV diuretics. Patient's hospital course was uneventful besides prolonged stay. Patient is currently stable to be discharged with a close follow up as an outpatient with the PCP and Cardiology. Condition at Discharge: Stable Final Diagnosis/Problems List 65-year-old male with a known history of congestive heart failure with a end-stage cardiomyopathy, hypertension, dyslipidemia, status post pacemaker, CKD, liver disease, previous history of illicit drug use, sober for 30 years presented to the hospital with a dizziness chest pain shortness of breaths found to have 1. Acute on chronic congestive heart failure exacerbation with a systolic dysfunction 2. End-stage heart disease with a cardiomyopathy with the EF of less than 10% 3. Status post pacemaker/AICD 4. Hypertension 5. Dyslipidemia 6. Hepatic steatosis/liver cirrhosis Discharge Disposition: Home SNF Discharge Will this Physician continue t: No Discharge Instruct/Medications Diet: Cardiac 2g Na,low cholest Activity: No Restrictions, As Tolerated Follow Up/Referral: Follow up with the PCP and Cardiology in one week. Medications: Resume home medications. Continued Medications: Amiodarone HCl (Amiodarone HCl) 200 Mg Tab 1 TAB PO BID for 30 Days, #60 Aspirin (Aspir-Low) 81 Mg Tab 81 MG PO DAILY, MG Aspirin (Aspirin Low Dose) 81 Mg Tab 1 DAILY Bumetanide (Bumetanide) 1 Mg Tab 1 TAB PO BID for 90 Days, #180 Carvedilol (Carvedilol) 6.25 Mg Tab 1 TAB PO BID for 30 Days, #60 Cholecalciferol (Vitamin D3) 2,000 Unit Tab 1 TAB PO DAILY Dapagliflozin Propanediol (Farxiga) 10 Mg Tab 10 MG PO DAILY, TAB Digoxin (Digoxin) 125 Mcg Tab 1 TAB PO DAILY Famotidine (Pepcid Tablet) 20 Mg Tb 1 TAB PO BID for 30 Days, #60 TAB 0 Refills Ivabradine Hydrochloride (Corlanor) 5 Mg Tab 1 TAB PO BID Mexiletine HCl (Mexiletine Hydrochloride) 150 Mg Cap 1 Midodrine HCl (Midodrine Hydrochloride) 5 Mg Tab 2 TAB PO TID, TAB Nitroglycerin (Ntrostat Sublingual) 0.4 Mg Sl 0.4 MG SL PRN, TAB *MAY REPEAT EVERY 5 MINUTES X 3 TOTAL IF NO RELIEF, INITIATE ANALGESIC THERAPY. NOTIFY PHYSICIAN *Do not crush. Pantoprazole Sodium Sesquihydr (Pantoprazole Sodium) 40 Mg Tab 40 MG PO DAILY, TAB Potassium Chloride (Potassium Chloride ER) 10 Meq Tab 20 MEQ PO DAILY for 30 Days, #60 TAB Simvastatin (Simvastatin) 10 Mg Tab 10 MG PO DAILY, MG Spironolactone (Spironolactone) 25 Mg Tab 1 TAB PO DAILY for 90 Days, #90 Vericiguat (Verquvo) 10 Mg Tab 1 TAB PO DAILY Scheduled Amiodarone HCl (Amiodarone HCl), 1 TAB PO BID, (Reported) Aspirin (Aspir-Low), 81 MG PO DAILY, (Reported) Aspirin (Aspirin Low Dose), 1 DAILY, (Reported) Bumetanide (Bumetanide), 1 TAB PO BID, (Reported) Carvedilol (Carvedilol), 1 TAB PO BID, (Reported) Cholecalciferol (Vitamin D3), 1 TAB PO DAILY, (Reported) Dapagliflozin Propanediol (Farxiga), 10 MG PO DAILY, (Reported) Digoxin (Digoxin), 1 TAB PO DAILY, (Reported) Famotidine (Pepcid Tablet), 1 TAB PO BID Ivabradine Hydrochloride (Corlanor), 1 TAB PO BID, (Reported) Midodrine HCl (Midodrine Hydrochloride), 2 TAB PO TID, (Reported) Nitroglycerin (Ntrostat Sublingual), 0.4 MG SL PRN, (Reported) Pantoprazole Sodium Sesquihydr (Pantoprazole Sodium), 40 MG PO DAILY, (Reported) Potassium Chloride (Potassium Chloride ER), 20 MEQ PO DAILY Simvastatin (Simvastatin), 10 MG PO DAILY, (Reported) Spironolactone (Spironolactone), 1 TAB PO DAILY, (Reported) Vericiguat (Verquvo), 1 TAB PO DAILY, (Reported) Miscellaneous Medications Mexiletine HCl (Mexiletine Hydrochloride), 1, (Reported) Discharge Statement: "Patient was advised to return to the ER or call 911 if any headaches, dizziness, shortness of breath, chest pain, abdominal pain, bleeding, fevers, or worsening of medical condition. Patient was counseled about treatment plan, medications, possible side effects, patientverbalized understanding. All questions were answered to the best of my ability. This discharge took greater then 30 minutes in planning, reviewing documentation, counseling the patient, and discussing with other team members." ASSESSMENT ASSESSMENT Assessment 65-year-old male with a known history of congestive heart failure with a end- stage cardiomyopathy, hypertension, dyslipidemia, status post pacemaker, CKD, liver disease, previous history of illicit drug use, sober for 30 years presented to the hospital with a dizziness chest pain shortness of breaths found to have 1. Acute on chronic congestive heart failure exacerbation with a systolic dysfunction 2. End-stage heart disease with a cardiomyopathy with the EF of less than 10% 3. Status post pacemaker/AICD 4. Hypertension 5. Dyslipidemia 6. Hepatic steatosis/liver cirrhosis Date of Service: Mar 26, 2025 Billing Provider: YUN ZAMAN MD Common Visit Codes: 73232-IAF/OBS DISCH DAY >30min YUN ZAMAN MD Mar 26, 2025 13:11
== END 2025-03-26 12:20 | disposition home or self-care (01) | DRG 194 ==
LOC: ER 20:01 → OVERFLOW 23:26 → TELE-CENTR 03-21 17:10
PROVIDERS: ADMIT Internal Medicine; ATTEND Internal Medicine
DX: I13.0 Hypertensive heart and chronic kidney disease with heart failure and stage 1 through stage 4 chronic kidney disease, or unspecified chronic kidney disease (principal); G93.41 Metabolic encephalopathy; J96.01 Acute respiratory failure with hypoxia; N17.9 Acute kidney failure, unspecified; N18.6 End stage renal disease; K74.60 Unspecified cirrhosis of liver; I42.9 Cardiomyopathy, unspecified; E11.22 Type 2 diabetes mellitus with diabetic chronic kidney disease; K76.0 Fatty (change of) liver, not elsewhere classified; I50.23 Acute on chronic systolic (congestive) heart failure; I48.91 Unspecified atrial fibrillation; E78.5 Hyperlipidemia, unspecified; I25.10 Atherosclerotic heart disease of native coronary artery without angina pectoris; Z95.810 Presence of automatic (implantable) cardiac defibrillator; Z91.013 Allergy to seafood; Z87.891 Personal history of nicotine dependence
CPT/HCPCS: 36415; 70450; 71045; 73030; 76705; 80053; 80320; 81001; 82140; 83880; 84484; 85025; 85610; 93005; 94640; 99291; G0378; J2405; J3490

== ENCOUNTER 2025-04-11 20:20 | Inpatient (IN) | payer MEDICAID ==
[~2025-04-11] VITALS: Ht 188 cm; Wt 92.6 kg
[2025-04-11] MEDS: FUROSEMIDE 100 MG/10ML VIAL IV ONE (00:45)
[~2025-04-11 20:20] MED LIST changes: -ACET-1882 PO; -BUME2TAB5 PO; -CARV3.1240 PO
[2025-04-11 21:00] LABS: Hematocrit 42.7 % (41.0-53.0); Hemoglobin 14.6 g/dL (13.5-17.5); Mean Corpuscular Hemoglobin 31.8 pg (28.0-32.0); Mean Corpuscular Volume 92.9 fL (80.0-100.0); Nucleated Red Blood Cells % 0.3 %
[2025-04-11 21:17] LABS: Albumin 3.8 g/dL (3.2-4.8); Anion Gap 13 (5-15); Calcium 9.4 mg/dL (8.7-10.4); Glucose 88 mg/dL (74-106); Lipase 29 U/L (12-53)
[2025-04-11 21:22] LABS: Alanine Aminotransferase 87 U/L (7-40); Alkaline Phosphatase 226 U/L (46-116); BUN/Creatinine Ratio 34.6 (10.0-20.0); Bilirubin, Total 14.7 mg/dL (0.2-1.0); Blood Urea Nitrogen 55 mg/dL (9-23); Carbon Dioxide 19 mmol/L (20-31); Chloride 89 mmol/L (98-107); Potassium 5.1 mmol/L (3.5-5.1); Sodium 121 mmol/L (136-145); Total Protein 6.2 g/dL (5.7-8.2)
[2025-04-11 21:27] LABS: Lactic Acid w/Reflex 3.4 mmol/L (0.4-2.0)
--- NOTE | 2025-04-11 22:13 | ECG ---
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
--- NOTE | 2025-04-11 23:43 | ED.PDOC ---
HPI Comments This patient is a 65-year-old male who appears to be older than his chronology arrives to the ED today with complaints of chest pain, general weakness and shortness a breath that began this morning has continued throughout. Patient has a history of CHF and cardiac concerns. Patient states the symptoms came on and has been unrelenting. 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 Vital signs were stable on arrival. Chief Complaint: Chest Pain Time Seen by MD: 20:28 Primary Care Provider: GABRIELA Reviewed Notes: Nurses Notes Allergies: Coded Allergies: Shellfish Allergy (Unverified Allergy, Severe, 09/11/23) CRAB Uncoded Allergies: CRAB (Allergy, Severe, 08/06/17) Home Meds Active Scripts Famotidine (PEPCID TABLET) 20 Mg Tb, 1 TAB PO BID for 30 Days, #60 TAB 0 Refills Prov:BRAIN LAI MD 03/07/25 Potassium Chloride (Potassium Chloride ER) 10 Meq Tab, 20 MEQ PO DAILY for 30 Days, #60 TAB Prov:MEME JAIME MD 04/30/24 Reported Medications Amiodarone HCl (Amiodarone HCl) 200 Mg Tab, 1 TAB PO BID for 30 Days, #60 03/25/25 Carvedilol (Carvedilol) 6.25 Mg Tab, 1 TAB PO BID for 30 Days, #60 03/25/25 Spironolactone (Spironolactone) 25 Mg Tab, 1 TAB PO DAILY for 90 Days, #90 03/25/25 Bumetanide (Bumetanide) 1 Mg Tab, 1 TAB PO BID for 90 Days, #180 03/25/25 Aspirin (Aspirin Low Dose) 81 Mg Tab, 1 DAILY 09/04/24 Mexiletine HCl (Mexiletine Hydrochloride) 150 Mg Cap, 1 09/04/24 Pantoprazole Sodium Sesquihydr (Pantoprazole Sodium) 40 Mg Tab, 40 MG PO DAILY, TAB 05/12/24 Simvastatin (Simvastatin) 10 Mg Tab, 10 MG PO DAILY, MG 05/12/24 Midodrine HCl (Midodrine Hydrochloride) 5 Mg Tab, 2 TAB PO TID, TAB 05/10/24 Cholecalciferol (VITAMIN D3) 2,000 Unit Tab, 1 TAB PO DAILY 01/09/24 Digoxin (Digoxin) 125 Mcg Tab, 1 TAB PO DAILY 01/09/24 Vericiguat (Verquvo) 10 Mg Tab, 1 TAB PO DAILY 01/09/24 Ivabradine Hydrochloride (Corlanor) 5 Mg Tab, 1 TAB PO BID 08/16/23 Nitroglycerin (NTROSTAT SUBLINGUAL) 0.4 Mg Sl, 0.4 MG SL PRN, TAB *MAY REPEAT EVERY 5 MINUTES X 3 TOTAL IF NO RELIEF, INITIATE ANALGESIC THERAPY. NOTIFY PHYSICIAN *Do not crush. 05/15/23 Dapagliflozin Propanediol (Farxiga) 10 Mg Tab, 10 MG PO DAILY, TAB 05/15/23 Aspirin (Aspir-Low) 81 Mg Tab, 81 MG PO DAILY, MG 05/15/23 Information Source: Patient Mode of Arrival: Ambulatory Severity: Moderate Timing: Hours Duration: Since onset Prehospital treatment: None Location: Substernal Radiation: No Radiation Quality: Pressure, Heavy Onset: At Rest Cardiac Risk Factors: HTN History of: Similar pain in past Associated Signs and Symptoms: SOB Past Medical History PAST MEDICAL HISTORY: AFIB, Angina, CAD, CHF, DM, High Lipids, HTN, PE Surgical History: Pacemaker, PTCA Family History Family History: Reviewed,noncontributory to illness, Family hx of DM, Family hx of heart bhavik, Family hx of HTN Social History Smoker: Quit Greater Than 1 Year, Cigarettes Alcohol: Sober Drugs: Denies Drug Use Lives In: Home Constitutional: reports: fatigue, weakness; denies: chills, diaphoresis, fever, malaise, sweats, others EENTM: denies: blurred vision, double vision, ear bleeding, ear discharge, ear drainage, ear pain, ear ringing, eye pain, eye redness, hearing loss, mouth pain, mouth swelling, nasal discharge, nose bleeding, nose congestion, nose pain, photophobia, tearing, throat pain, throat swelling, voice changes, others Respiratory: reports: shortness of breath; denies: cough, hemoptysis, orthopnea, SOB at rest, SOB with excertion, stridor, wheezing, others Cardiovascular: reports: chest pain; denies: dizzy spells, diaphoresis, Dyspnea on exertion, edema, irregular heart beat, left arm pain, lightheadedness, palpitations, PND, syncope, others Gastrointestinal: denies: abdomen distended, abdominal pain, blood streaked bowels, constipated, diarrhea, dysphagia, difficulty swallowing, hematemesis, melena, nausea, poor appetite, poor fluid intake, rectal bleeding, rectal pain, vomiting, others Genitourinary: denies: burning, dysuria, flank pain, frequency, hematuria, incontinence, penile discharge, penile sore, pain, testicle pain, testicle swelling, urgency, others Neurological: denies: dizziness, fainting, headache, left sided numbness, left sided weakness, numbness, paresthesia, pre-existing deficit, right sided numbness, right sided weakness, seizure, speech problems, tingling, tremors, weakness, others Musculoskeletal: denies: back pain, gout, joint pain, joint swelling, muscle pain, muscle stiffness, neck pain, others Integumetry: denies: bruises, change in color, change in hair/nails, dryness, laceration, lesions, lumps, rash, wounds, others Allergic/Immunocompromised: denies: Difficulty Healing, Frequent Infections, Hives, Itching, others Hematologic/Lymphatic: denies: anemia, blood clots, easy bleeding, easy bruising, swollen glands, others Endocrine: denies: excessive hunger, excessive sweating, excessive thirst, excessive urination, flushing, intolerance to cold, intolerance to heat, unexplained weight gain, unexplained weight loss, others Psychiatric: denies: anxiety, bipolar disorder, depression, hopeless, panic disorder, schizophrenia, sleepless, suicidal, others Physical Exam General Appearance: Moderate Distress (Patient appears to be in moderate distress. Patient appears older than his chronology as well as being in poor overall health.), Normal HEENT: Normal ENT Inspection, Pharynx Normal, TMs Normal Neck: Full Range of Motion, Non-Tender, Normal, Normal Inspection Respiratory: Chest Non-Tender, Lungs Clear, No Accessory Muscle Use, No Respiratory Distress, Normal Breath Sounds, Other (Auscultation bilateral lung madden was unremarkable.) Cardiovascular: No Edema, No JVD, No Murmur, No Gallop, Normal Peripheral Pulses, Regular Rate/Rhythm Breast Exam: Deferred Gastrointestinal: No Organomegaly, Non Tender, No Pulsatile Mass, Normal Bowel Sounds, Soft Genitalia: Deferred Pelvic: Deferred Rectal: Deferred Extremities: Normal capillary refill, Non-tender Neurologic: Alert Cerebellar Function: NOT DONE Reflexes: NOT DONE Skin: Dry, Normal Color, Warm Lymphatic: No Adenopathy Was a procedure done? Was a procedure done?: No CP Differential Dx Differential Diagnosis: A-fib, Angina, Anxiety / Panic Attack, Atrial Dysrhythmia, AV Block 1st Degree, [place] Differential Diagnosis: CHF Differential Diagnosis: Angina, Costochondritis, Pneumonia X-Ray, Labs, Meds, VS Vital Signs Date Time Temp Pulse Resp B/P (MAP) Pulse Ox O2 Delivery O2 Flow Rate FiO2 04/11/25 23:03 97.6 86 20 113/79 (90) 99 97.6 04/11/25 23:03 86 20 99 Room Air 04/11/25 20:32 91 04/11/25 20:28 96.8 88 18 117/79 100 96.8 Lab Test 04/11/25 23:29 04/11/25 22:30 04/11/25 21:47 04/11/25 20:38 Range/Units Troponin I High Sensitivity Pending 60 *H 64 *H </=54 ng/L Lactic Acid Level 2.9 *H 3.4 *H 0.4-2.0 mmol/L White Blood Count 7.5 4.4-10.8 10^3/uL Red Blood Count 4.60 4.5-5.90 10^6/uL Hemoglobin 14.6 13.5-17.5 g/dL Hematocrit 42.7 41.0-53.0 % Mean Corpuscular Volume 92.9 80.0-100.0 fL Mean Corpuscular Hemoglobin 31.8 28.0-32.0 pg Mean Corpuscular Hemoglobin Concent 34.2 32.0-36.0 g/dL Red Cell Distribution Width 20.6 H 11.8-14.3 % Platelet Count 123 L 140-450 10^3/uL Mean Platelet Volume 8.6 6.9-10.8 fL Neutrophils (%) (Auto) 84.4 H 37.0-80.0 % Lymphocytes (%) (Auto) 4.8 L 10.0-50.0 % Monocytes (%) (Auto) 9.5 0.0-12.0 % Eosinophils (%) (Auto) 0.1 0.0-7.0 % Basophils (%) (Auto) 1.2 0.0-2.0 % Neutrophils # (Auto) 6.4 1.6-8.6 10 ^3/uL Lymphocytes # (Auto) 0.4 0.4-5.4 10 ^3/uL Monocytes # (Auto) 0.7 0-1.3 10 ^3/uL Eosinophils # (Auto) 0 0-0.8 10 ^3/uL Basophils # (Auto) 0.1 0-0.2 10 ^3/uL Nucleated Red Blood Cells 0.3 % Sodium Level 121 L 136-145 mmol/L Potassium Level 5.1 3.5-5.1 mmol/L Chloride Level 89 L 98-107 mmol/L Carbon Dioxide Level 19 L 20-31 mmol/L Anion Gap 13 5-15 Blood Urea Nitrogen 55 H 9-23 mg/dL Creatinine 1.59 H 0.700-1.30 mg/dL Glomerular Filtration Rate Calc 48 >90 mL/min BUN/Creatinine Ratio 34.6 H 10.0-20.0 Serum Glucose 88 74-106 mg/dL Calcium Level 9.4 8.7-10.4 mg/dL Total Bilirubin 14.7 H 0.2-1.0 mg/dL Aspartate Amino Transferase (AST) 193 H 13-40 U/L Alanine Aminotransferase (ALT) 87 H 7-40 U/L Alkaline Phosphatase 226 H 46-116 U/L B-Type Natriuretic Peptide > 5000.00 0-100 pg/mL Total Protein 6.2 5.7-8.2 g/dL Albumin 3.8 3.2-4.8 g/dL Lipase 29 12-53 U/L Plasma/Serum Blood Alcohol 3.2 <10 mg/dL X-Ray, Labs, Meds, VS Comment All studies performed the ED were evaluated by me personally. Patient's laboratories revealed a thrombocytopenia state, hyponatremia, what appears to be acute on chronic renal injury, elevated lactic acid, elevated troponin with significant CHF exacerbation noted. EKG revealed a sinus rhythm with a rate of 91. Nonspecific IVCD with LAD noted. LVH with secondary repolarization abnormality as well as baseline wander in lead V2. AR interval of 204 and QT interval 411. Patient will be admitted for his multiple comorbidities and will require a cardiac evaluation in the morning. Additional nephrology consult may be required. Time of 1ST Reevaluation: 23:41 Reevaluation 1ST: Unchanged Consultation: PCP, Cardiology Patient Education/Counseling: Diagnosis, Treatment Family Education/Counseling: Diagnosis, Treatment SEPSIS Sepsis Screen Date sepsis recognized/suspect: Apr 11, 2025 Time Sepsis recognized/suspect: 2305 Recent Procedure: No On Antibiotic Therapy: No Respiratory Rate >20: No Heart Rate >90: No Temp<36 C (96.8 F) or >38.3 C: No SBP <90 or MAP <65 mmHG: No New Acute Mental Status Change: No Is the patient on CPAP, BIPAP,: No Physician Orders Troponin-I Hs (04/11/25 23:25) Electrocardigram (04/11/25 21:25) Electrocardigram (04/11/25 23:25) Heplock Iv (04/11/25 ) Urinalysis (04/11/25 20:33) Drug Screen (04/11/25 20:33) Sodium Chloride 0.9% (04/11/25 21:45) Vital Signs Date Time Temp Pulse Resp B/P (MAP) Pulse Ox O2 Delivery O2 Flow Rate FiO2 04/11/25 23:03 97.6 86 20 113/79 (90) 99 97.6 04/11/25 23:03 86 20 99 Room Air 04/11/25 20:32 91 04/11/25 20:28 96.8 88 18 117/79 100 96.8 Laboratory Tests Test 04/11/25 20:38 04/11/25 22:30 Lactic Acid Level 3.4 mmol/L (0.4-2.0) *H 2.9 mmol/L (0.4-2.0) *H White Blood Count 7.5 10^3/uL (4.4-10.8) Departure 1 Departure Time of Disposition: 23:42 Impression: Primary Impression: Acute exacerbation of CHF (congestive heart failure) Additional Impressions: Elevated troponin Elevated lactic acid level [id number] kidney injury Hyponatremia Thrombocytopenia Disposition: 09 ADMITTED INPATIENT Condition: Fair Discharged With: Self Critical Care Note Critical Care Time?: No Stability Stability form required: No Heart Score Heart Score: Heart Score Response (Comments) Value History Slightly Suspicious 0 EKG Repolarization Disturb 1 Age 45-64 1 Risk Factors 1 or 2 risk factors 1 Troponin Normal limit 0 Total 3 NIYA BOYCE PAC Apr 11, 2025 23:43
[2025-04-12] VITALS (7 sets, daily range): BP systolic 128; BP diastolic 88; PULSE 70–88; RESP 13–21; O2SAT 93–100
[2025-04-12] MEDS ORDERED: DOCUSATE SOD 100 MG CAP PO PRN (00:15)
[2025-04-12] MEDS ORDERED: HYDROcodone-ACET 5/325MG TAB PO PRN (00:15)
[2025-04-12] MEDS ORDERED: NITROGLYCERIN 0.4 MG SL TAB SL PRN (00:15)
[2025-04-12] MEDS ORDERED: IBUPROFEN 600 MG TAB PO PRN (00:15)
--- NOTE | 2025-04-12 00:23 | DVHHP2 ---
History of Present Illness Reason for Visit: Acute exacerbation of congestive heart failure History of Present Illness The patient is a 65-year-old male with multiple past medical history including AFib, Coronary artery disease, CHF, diabetes mellitus, hyperlipidemia, and PE who presented to [facility] ED with complaint of chest pain. Patient reports symptoms progressively get worse with generalized weakness, fatigue, and shortness of breaths. Patient was seen and evaluated in the ED, laboratory data shows WBC 7.5, platelets 123, sodium 121, potassium 5.1, BUN 55, creatinine 1.59, glucose 88, calcium 9.4, lactic acid 2.9 trending down, lipase 29, troponin 60, AST 193, ALT 87, alkaline phos 226, BNP > 5000, blood pressure 113/79, heart rate 86, temperature 97.6 F, O2 saturation 99% on oxygen. Chest x-ray revealing cardiomegaly with mild pulmonary vascular congestion. Patient was started on IV Lasix, please see medication orders section in the computer. On my assessment, patient denied chest pain at this moment, no dizziness, no headache, currently on oxygen, no diaphoresis, no diarrhea, no nausea, no vomiting, no fever, no chills. Patient was admitted for further evaluation and medical management. Past Medical History AFIB, Angina, CAD, CHF, DM, High Lipids, HTN, PE Past Surgical History Pacemaker, PTCA Family History Reviewed, noncontributory to the management of this case. Past Social History The patient lives at home, quit smoking greater than 1 year, sober alcohol, denies illicit drugs abuse. Review of Systems Constitutional: Yes: Weakness, Other (Fatigue); No: Fever, Chills, Sweats, Malaise Eyes: No: Pain, Vision change, Conjunctivae inflammation, Eyelid inflammation, Other, Redness ENT: No: Ear pain, Ear discharge, Nose pain, Nose discharge, Nose congestion, Mouth pain, Mouth swelling, Throat pain, Throat swelling, Other Respiratory: Shortness of breath; No: Cough, Dry, SOB with excertion, Wheezing, Hemoptysis, Pleuritic Pain, Sputum, Wheezing, Other Cardiovascular: Chest Pain; No: Palpitations, Orthopnea, Paroxysmal Noc. Dyspnea, Edema, Lt Headedness, Other Gastrointestinal: No: Nausea, Vomiting, Abdominal Pain, Diarrhea, Constipation, Melena, Hematochezia, Other Genitourinary: No Dysuria, No Frequency, No Incontinence, No Hematuria, No Retention, No Other Musculoskeletal: No: other, neck pain, shoulder pain, arm pain, back pain, hand pain, leg pain, foot pain Skin: No: Rash, Lesions, Jaundice, Bruising, Other Neurological: No: Weakness, Numbness, Incoordination, Change in speech, Confusion, Seizures, Other Allergies: Coded Allergies: Shellfish Allergy (Unverified Allergy, Severe, 09/11/23) CRAB Uncoded Allergies: CRAB (Allergy, Severe, 08/06/17) Exam Vital Signs Vital Signs Date Time Temp Pulse Resp B/P (MAP) Pulse Ox O2 Delivery O2 Flow Rate FiO2 04/11/25 23:03 97.6 86 20 113/79 (90) 99 97.6 04/11/25 23:03 Room Air General Appearance: Alert, Oriented X3, Cooperative, No acute distress HEENT: Atraumatic, PERRLA, EOMI, Mucous membr. moist/pink Respiratory: Normal air movement Cardiovascular: Regular rate, Normal S1, Normal S2, No murmurs Abdominal: Normal bowel sounds, Soft, No tenderness, No hepatospenomegaly, No masses Extremities: No clubbing, No cyanosis, No edema, Normal pulses, No tenderness/swelling Skin: No rashes, No significant lesion Neuro: Normal speech, Normal tone, Sensation intact, Cranial nerves 3-12 NL, Reflexes 2+, Other (Generalized weakness) Psych/Mental Status: Mental status NL, Mood NL Labs/Xrays Labs Test 04/11/25 23:29 04/11/25 22:30 04/11/25 20:38 Range/Units Troponin I High Sensitivity 60 *H </=54 ng/L Lactic Acid Level 2.9 *H 0.4-2.0 mmol/L White Blood Count 7.5 4.4-10.8 10^3/uL Red Blood Count 4.60 4.5-5.90 10^6/uL Hemoglobin 14.6 13.5-17.5 g/dL Hematocrit 42.7 41.0-53.0 % Mean Corpuscular Volume 92.9 80.0-100.0 fL Mean Corpuscular Hemoglobin 31.8 28.0-32.0 pg Mean Corpuscular Hemoglobin Concent 34.2 32.0-36.0 g/dL Red Cell Distribution Width 20.6 H 11.8-14.3 % Platelet Count 123 L 140-450 10^3/uL Mean Platelet Volume 8.6 6.9-10.8 fL Neutrophils (%) (Auto) 84.4 H 37.0-80.0 % Lymphocytes (%) (Auto) 4.8 L 10.0-50.0 % Monocytes (%) (Auto) 9.5 0.0-12.0 % Eosinophils (%) (Auto) 0.1 0.0-7.0 % Basophils (%) (Auto) 1.2 0.0-2.0 % Neutrophils # (Auto) 6.4 1.6-8.6 10 ^3/uL Lymphocytes # (Auto) 0.4 0.4-5.4 10 ^3/uL Monocytes # (Auto) 0.7 0-1.3 10 ^3/uL Eosinophils # (Auto) 0 0-0.8 10 ^3/uL Basophils # (Auto) 0.1 0-0.2 10 ^3/uL Nucleated Red Blood Cells 0.3 % Sodium Level 121 L 136-145 mmol/L Potassium Level 5.1 3.5-5.1 mmol/L Chloride Level 89 L 98-107 mmol/L Carbon Dioxide Level 19 L 20-31 mmol/L Anion Gap 13 5-15 Blood Urea Nitrogen 55 H 9-23 mg/dL Creatinine 1.59 H 0.700-1.30 mg/dL Glomerular Filtration Rate Calc 48 >90 mL/min BUN/Creatinine Ratio 34.6 H 10.0-20.0 Serum Glucose 88 74-106 mg/dL Calcium Level 9.4 8.7-10.4 mg/dL Total Bilirubin 14.7 H 0.2-1.0 mg/dL Aspartate Amino Transferase (AST) 193 H 13-40 U/L Alanine Aminotransferase (ALT) 87 H 7-40 U/L Alkaline Phosphatase 226 H 46-116 U/L B-Type Natriuretic Peptide > 5000.00 0-100 pg/mL Total Protein 6.2 5.7-8.2 g/dL Albumin 3.8 3.2-4.8 g/dL Lipase 29 12-53 U/L Plasma/Serum Blood Alcohol 3.2 <10 mg/dL PATIENT: SUHAIL VILLALTA ACCT: [id number] UNIT: [id number] : 1960 LOC: OVERFLOW ROOM / BED: [facility] / A AGE / SEX: 65 / M ADM STATUS: ADM IN SERVICE 38 ORDERING PHYSICIAN: NIYA BOYCE PAC PROCEDURE(s): CXRP - CHEST PORTABLE REASON: Shortness of breath ORDER NUMBER(s): [id number], ACCESSION NUMBER(s): [id number] CHEST RADIOGRAPH Indication: Shortness of breath Technique: Single frontal view of the chest was obtained COMPARISON: XR CHEST 1 VIEW on DOS: 04/04/25, XY CHEST XRAY 1 VIEW on DOS: 03/20/25, XY CHEST PORTABLE on DOS: 03/05/25, CT CHEST on DOS: 01/08/25, XY CHEST PORTABLE on DOS: 12/27/24 FINDINGS: Left chest wall pacing device with lead tips unchanged Cardiac silhouette is enlarged diffuse prominence of the pulmonary vasculature and slight prominence of interstitium. No dense focal airspace disease. No significant pleural effusions or pneumothorax. IMPRESSION: 1. Cardiomegaly with mild pulmonary vascular congestion. SEPSIS Sepsis Screen Date sepsis recognized/suspect: Apr 11, 2025 Time Sepsis recognized/suspect: 2305 Recent Procedure: No On Antibiotic Therapy: No Respiratory Rate >20: No Heart Rate >90: No Temp<36 C (96.8 F) or >38.3 C: No SBP <90 or MAP <65 mmHG: No New Acute Mental Status Change: No Is the patient on CPAP, BIPAP,: No Physician Orders Electrocardigram (04/11/25 21:25) Electrocardigram (04/11/25 23:25) Heplock Iv (04/11/25 ) Urinalysis (04/11/25 20:33) Drug Screen (04/11/25 20:33) Sodium Chloride 0.9% (04/11/25 21:45) Chest Portable (04/11/25 23:39) Complete Blood Count (04/12/25 04:00) Comprehensive Metabolic Panel (04/12/25 04:00) Furosemide Injection (Lasix Injection) (04/12/25 10:00) Aspirin Tablet (04/12/25 10:00) Ibuprofen Tablet (Motrin Tablet) (04/12/25 00:15) Famotidine Injection (Pepcid Injection) (04/12/25 10:00) Atorvastatin (Lipitor) (04/12/25 22:00) Admit (04/12/25 00:12) Allergies (04/12/25 00:12) Code Status (04/12/25 00:12) Sodium Chloride Lock (Saline Lock Ns) (04/12/25 06:00) Oxygen Per Hour (04/12/25 00:12) Hydrocodone-Acet 5/325mg Tab (Stetson 5/32 (04/12/25 00:15) Ondansetron Hcl (Zofran) (04/12/25 00:15) Docusate Sodium Capsule (Colace Capsule) (04/12/25 00:15) Complete Blood Count (04/13/25 04:00) Comprehensive Metabolic Panel (04/13/25 04:00) Cardiac Diet-2gna,Lofat,Lochol (04/12/25 Breakfast) Condition: Serious (04/12/25 00:12) Bedrest With Bathroom Privileg (04/12/25 00:12) Morphine Sulfate Injection (04/12/25 00:15) Sequential Compression Device (04/12/25 ) Nitroglycerin Sublingual (Ntrostat Subli (04/12/25 00:15) Morphine Sulfate Injection (04/12/25 00:15) Stat Ekg For Chest Pain (04/12/25 00:12) Notify Md Of Changes From Base (04/12/25 00:12) Security Technician For 24 Hours (04/12/25 00:12) Emergency Dysrhythmia Protocol (04/12/25 00:12) Rhythm Strips Once Every Shift (04/12/25 00:12) Oxygen By Nasal Cannula (04/12/25 00:12) Vital Signs Date Time Temp Pulse Resp B/P (MAP) Pulse Ox O2 Delivery O2 Flow Rate FiO2 04/11/25 23:03 97.6 86 20 113/79 (90) 99 97.6 04/11/25 23:03 86 20 99 Room Air 04/11/25 20:32 91 04/11/25 20:28 96.8 88 18 117/79 100 96.8 Laboratory Tests Test 04/11/25 20:38 04/11/25 22:30 Lactic Acid Level 3.4 mmol/L (0.4-2.0) *H 2.9 mmol/L (0.4-2.0) *H White Blood Count 7.5 10^3/uL (4.4-10.8) Assessment/Plan Assessment/Plan Acute exacerbation of congestive heart failure Hyponatremia Thrombocytopenia Elevated troponin Elevated lactic acid level Stgjk-pt-khmufsw kidney injury Generalized weakness Plan 1. Admit to telemetry unit 2. Breathing treatment 3. Pain control management 4. Management of fluids and electrolytes 5. Consultation for hospitalist 6. Diagnostic tests chest x-ray 7. DVT prophylaxis-on aspirin 8. Repeat labs CBC, CMP in a.m. 9. Continue with current medical management 10. Treatment plan discussed with patient and RN. Patient verbalized understanding. Plan discussed with: Patient, Other (RN) My Orders Orders - SAM SMITH DNP Procedure Category Date Status Time Complete Blood Count LAB 04/12/25 Verified 04:00 Comprehensive LAB 04/12/25 Verified Metabolic Panel 04:00 Furosemide Injection PHA 04/12/25 Verified (Lasix Injection) 10:00 Aspirin Tablet PHA 04/12/25 Verified 10:00 Ibuprofen Tablet PHA 04/12/25 Verified (Motrin Tablet) 00:15 Famotidine Injection PHA 04/12/25 Verified (Pepcid Injection) 10:00 Atorvastatin (Lipitor) PHA 04/12/25 Verified 22:00 Admit ADMIT 04/12/25 Verified 00:12 Allergies JIMMIE 04/12/25 Verified 00:12 Code Status CODE 04/12/25 Verified 00:12 Sodium Chloride Lock PHA 04/12/25 Verified (Saline Lock Ns) 06:00 Oxygen Per Hour RT 04/12/25 Verified 00:12 Hydrocodone-Acet PHA 04/12/25 Verified 5/325mg Tab (Stetson 00:15 Ondansetron Hcl PHA 04/12/25 Verified (Zofran) 00:15 Docusate Sodium PHA 04/12/25 Verified Capsule (Colace 00:15 Complete Blood Count LAB 04/13/25 Verified 04:00 Comprehensive LAB 04/13/25 Verified Metabolic Panel 04:00 Cardiac DIET 04/12/25 Verified Diet-2gna,Lofat,Lochol Breakfast Condition: Serious JIMMIE 04/12/25 Verified 00:12 Bedrest With Bathroom IJMMIE 04/12/25 Verified Privileg 00:12 Morphine Sulfate PHA 04/12/25 Verified Injection 00:15 Sequential [facility] 04/12/25 Verified Compression Device Nitroglycerin [facility] 04/12/25 Verified Sublingual (Ntrostat 00:15 Morphine Sulfate [facility] 04/12/25 Verified Injection 00:15 Stat Ekg For Chest [facility] 04/12/25 Verified Pain 00:12 Notify Md Of Changes [facility] 04/12/25 Verified From Base 00:12 Security Technician For [facility] 04/12/25 Verified 24 Hours 00:12 Emergency Dysrhythmia [facility] 04/12/25 Verified Protocol 00:12 Rhythm Strips Once [facility] 04/12/25 Verified Every Shift 00:12 Oxygen By Nasal 04/12/25 Verified Cannula 00:12 Problem List: (1) Acute exacerbation of congestive heart failure (2) Hyponatremia (3) Thrombocytopenia (4) Elevated troponin (5) Elevated lactic acid level (6) Usrot-pa-guyfdvl kidney injury (7) Generalized weakness Date of Service: Apr 12, 2025 Billing Provider: SAM SMITH DNP Common Visit Codes: [id number] INP/OBS CARE (HIGH) SAM SMITH DNP Apr 12, 2025 00:23
--- NOTE | 2025-04-12 00:42 | DVH ---
CHEST RADIOGRAPH Indication: Shortness of breath Technique: Single frontal view of the chest was obtained COMPARISON: XR CHEST 1 VIEW on DOS: 04/04/25, XY CHEST XRAY 1 VIEW on DOS: 03/20/25, XY CHEST PORTABLE on DOS: 03/05/25, CT CHEST on DOS: 01/08/25, XY CHEST PORTABLE on DOS: 12/27/24 FINDINGS: Left chest wall pacing device with lead tips unchanged Cardiac silhouette is enlarged diffuse prominence of the pulmonary vasculature and slight prominence of interstitium. No dense focal airspace disease. No significant pleural effusions or pneumothorax. IMPRESSION: 1. Cardiomegaly with mild pulmonary vascular congestion.
[2025-04-12] MEDS: SODIUM CHLORIDE 0.9% 1,000 ML IV ONE (00:45)
[2025-04-12] MEDS: MORPHINE SULFATE INJ 2 MG/ml SYRG IV PRN (01:21)
[2025-04-12] MEDS: ONDANSETRON HCL 4 MG/2 ML VIAL IV PRN (01:26)
[2025-04-12 05:00] LABS: Hematocrit 40.9 % (41.0-53.0); Hemoglobin 13.9 g/dL (13.5-17.5); Mean Corpuscular Hemoglobin 31.7 pg (28.0-32.0); Mean Corpuscular Volume 93.5 fL (80.0-100.0); Nucleated Red Blood Cells % 0.2 %
[2025-04-12] MEDS ORDERED: ALBUTEROL SULF 2.5 MG/0.5ML(0.5%) NEB SOLN NEB PRN (05:45)
[2025-04-12] MEDS: SODIUM CHLOR 0.9% PF (SALINE LOCK) 10ML VIAL/SYR IV SCH (06:00)
[2025-04-12] MEDS: FUROSEMIDE 40 MG/4 ML VIAL IV ONE (06:31)
[2025-04-12] MEDS: FUROSEMIDE 40 MG/4 ML VIAL ONE (06:31)
[2025-04-12 06:35] LABS: Albumin 3.7 g/dL (3.2-4.8); Anion Gap 12 (5-15); Calcium 9.5 mg/dL (8.7-10.4); Carbon Dioxide 23 mmol/L (20-31); Glucose 90 mg/dL (74-106)
[2025-04-12 07:08] LABS: Alanine Aminotransferase 88 U/L (7-40); Alkaline Phosphatase 223 U/L (46-116); Bilirubin, Total 15.0 mg/dL (0.2-1.0); Blood Urea Nitrogen 40 mg/dL (9-23); Chloride 88 mmol/L (98-107); Potassium 4.9 mmol/L (3.5-5.1); Sodium 123 mmol/L (136-145)
--- NOTE | 2025-04-12 09:48 | DVHINCON2 ---
Date Seen: Apr 12, 2025 Referring Physician ABNER Lopez Reason for Consultation CHF exacerbation History of Present Illness 65-year-old man with an extensive cardiac history presented in the ED with complaint of chest pain, generalized weakness, and shortness of breath that began yesterday morning. On evaluation, the patient is alert and oriented but a poor historian. At the time of assessment, he denies ongoing chest pain. A recent echocardiogram showed severely reduced LV systolic function with EF of 5%. He is currently taking Bumex. A 12 lead ECG revealing normal sinus rhythm with no acute ischemic change.BNP > 5000, and trops flat in 60s. Cxray reveals cardiomegaly with pulmonary vascular congestion. Past Medical History HFrEF NICM Paroxysmal AFib Status post ICD placement Mitral regurgitation Elevated liver enzymes Pulmonary hypertension Medical noncompliance Past Surgical History Permanent pacemaker Family History: FH: arthritis FH: cancer aunt, Onset:50's - 60 FH: diabetes mellitus G8 MOTHER, , Onset:Unknown FH: stroke G8 MOTHER, , Onset:Unknown FHx: heart disease Family history: Cardiovascular disease G8 MOTHER, , Onset:Unknown Family history: Hypertension G8 MOTHER, , Onset:Unknown Family History Reviewed, non-contributory to the management of this case. Social History Polysubstance abuse Allergies: Coded Allergies: Shellfish Allergy (Unverified Allergy, Severe, 09/11/23) CRAB Uncoded Allergies: CRAB (Allergy, Severe, 08/06/17) Home Meds Active Scripts Famotidine (PEPCID TABLET) 20 Mg Tb, 1 TAB PO BID for 30 Days, #60 TAB 0 Refills Prov:BRAIN LAI MD 03/07/25 Potassium Chloride (Potassium Chloride ER) 10 Meq Tab, 20 MEQ PO DAILY for 30 Days, #60 TAB Prov:MEME JAIME MD 04/30/24 Reported Medications Amiodarone HCl (Amiodarone HCl) 200 Mg Tab, 1 TAB PO BID for 30 Days, #60 03/25/25 Carvedilol (Carvedilol) 6.25 Mg Tab, 1 TAB PO BID for 30 Days, #60 03/25/25 Spironolactone (Spironolactone) 25 Mg Tab, 1 TAB PO DAILY for 90 Days, #90 03/25/25 Bumetanide (Bumetanide) 1 Mg Tab, 1 TAB PO BID for 90 Days, #180 03/25/25 Aspirin (Aspirin Low Dose) 81 Mg Tab, 1 DAILY 09/04/24 Mexiletine HCl (Mexiletine Hydrochloride) 150 Mg Cap, 1 09/04/24 Pantoprazole Sodium Sesquihydr (Pantoprazole Sodium) 40 Mg Tab, 40 MG PO DAILY, TAB 05/12/24 Simvastatin (Simvastatin) 10 Mg Tab, 10 MG PO DAILY, MG 05/12/24 Midodrine HCl (Midodrine Hydrochloride) 5 Mg Tab, 2 TAB PO TID, TAB 05/10/24 Cholecalciferol (VITAMIN D3) 2,000 Unit Tab, 1 TAB PO DAILY 01/09/24 Digoxin (Digoxin) 125 Mcg Tab, 1 TAB PO DAILY 01/09/24 Vericiguat (Verquvo) 10 Mg Tab, 1 TAB PO DAILY 01/09/24 Ivabradine Hydrochloride (Corlanor) 5 Mg Tab, 1 TAB PO BID 08/16/23 Nitroglycerin (NTROSTAT SUBLINGUAL) 0.4 Mg Sl, 0.4 MG SL PRN, TAB *MAY REPEAT EVERY 5 MINUTES X 3 TOTAL IF NO RELIEF, INITIATE ANALGESIC THERAPY. NOTIFY PHYSICIAN *Do not crush. 05/15/23 Dapagliflozin Propanediol (Farxiga) 10 Mg Tab, 10 MG PO DAILY, TAB 05/15/23 Aspirin (Aspir-Low) 81 Mg Tab, 81 MG PO DAILY, MG 05/15/23 Current Medications Current Medications Medications (Trade) Dose Ordered Sig/Brian Route PRN Reason Start Time Stop Time Status Last Admin Furosemide (Lasix Injection) 40 mg DAILY IV 04/12/25 10:00 Aspirin 81 mg DAILY PO 04/12/25 10:00 Ibuprofen (Motrin Tablet) 600 mg Q6HP PRN PO PAIN SCALE 1-3 OR TEMP>100.4 04/12/25 00:15 Famotidine (Pepcid Injection) 20 mg DAILY IV 04/12/25 10:00 Atorvastatin Calcium (Lipitor) 10 mg HS PO 04/12/25 22:00 Sodium Chloride (Saline Lock Ns) 10 ml Q8HR IV 04/12/25 06:00 04/12/25 06:00 Acetaminophen/ Hydrocodone Bitart (Casper 5/325MG Tab) 1 tab Q4HP PRN PO MODERATE PAIN (4-6 PAIN SCALE) 04/12/25 00:15 Ondansetron HCl (Zofran) 4 mg Q4HP PRN IV NAUSEA / VOMITING 04/12/25 00:15 04/12/25 01:26 Docusate Sodium (Colace Capsule) 100 mg BIDPRN PRN PO FOR CONSTIPATION 04/12/25 00:15 Morphine Sulfate 2 mg Q4HPRN PRN IV SEVERE PAIN (7-10 PAIN SCALE) 04/12/25 00:15 04/12/25 01:21 Nitroglycerin (Ntrostat Sublingual) 0.4 mg Q5MINP PRN SL FOR CHEST PAIN 04/12/25 00:15 Morphine Sulfate 2 mg Q30M PRN IV FOR CHEST PAIN 04/12/25 00:15 Albuterol (Ventolin Medneb) 2.5 mg Q4HR PRN NEB SHORTNESS OF BREATH 04/12/25 05:45 04/12/25 05:56 DC Albuterol (Ventolin Medneb) 2.5 mg Q4HPRN PRN NEB SHORTNESS OF BREATH 04/12/25 06:00 Review of Systems Constitutional: No symptom reported Ears, Nose, & Throat: No symptom reported Eyes: No symptom reported Neurological: No symptoms reported Pulmonary/Respiratory: Shortness of breath Cardiovascular: Chest pain, dyspnea Gastrointestinal: No symptom reported Genitourinary: No symptom reported Musculoskeletal: No symptom reported Skin: No symptom reported Psychiatric: No symptom reported Endocrine: No symptom reported Hemotologic/Lymphatic: No symptom reported Vital Signs Vital Signs Date Time Temp Pulse Resp B/P (MAP) Pulse Ox O2 Delivery O2 Flow Rate FiO2 04/12/25 08:10 88 16 128/88 100 4.0 04/12/25 05:53 Nasal Cannula* 36 04/11/25 23:03 97.6 97.6 Physical Exam INITIAL VITAL SIGNS: Reviewed by me GENERAL: Alert and interactive. No acute distress. HEAD: Head is normocephalic and atraumatic. EYES: EOMI, PERRL. No scleral icterus. No conjunctival injection. ENT: Moist mucous membranes. NECK: JVD distention RESPIRATORY bibasilar crackles, decreased breath sounds. Mild increase work of breathing. CV: Regular rate and rhythm. Dyspnea on exertion, bilateral lower extremity edema +2. GI/: Active bowel sounds, soft, nondistended, nontender. No guarding. No rebound. No masses. No CVA tenderness. INTEGUMENTARY: Warm and dry. No obvious rashes. NEUROLOGIC: Alert and oriented. Labs/Diagnostic Data Labs Test 04/12/25 05:56 04/12/25 04:52 04/11/25 23:29 04/11/25 22:30 Range/Units Sodium Level 123 L 136-145 mmol/L Potassium Level 4.9 3.5-5.1 mmol/L Chloride Level 88 L 98-107 mmol/L Carbon Dioxide Level 23 20-31 mmol/L Anion Gap 12 5-15 Blood Urea Nitrogen 40 #H 9-23 mg/dL Serum Glucose 90 74-106 mg/dL Calcium Level 9.5 8.7-10.4 mg/dL Total Bilirubin 15.0 H 0.2-1.0 mg/dL Aspartate Amino Transferase (AST) 195 H 13-40 U/L Alanine Aminotransferase (ALT) 88 H 7-40 U/L Alkaline Phosphatase 223 H 46-116 U/L Albumin 3.7 3.2-4.8 g/dL White Blood Count 7.8 4.4-10.8 10^3/uL Red Blood Count 4.38 L 4.5-5.90 10^6/uL Hemoglobin 13.9 13.5-17.5 g/dL Hematocrit 40.9 L 41.0-53.0 % Mean Corpuscular Volume 93.5 80.0-100.0 fL Mean Corpuscular Hemoglobin 31.7 28.0-32.0 pg Mean Corpuscular Hemoglobin Concent 34.0 32.0-36.0 g/dL Red Cell Distribution Width 21.3 H 11.8-14.3 % Platelet Count 125 L 140-450 10^3/uL Mean Platelet Volume 9.6 6.9-10.8 fL Neutrophils (%) (Auto) 82.5 H 37.0-80.0 % Lymphocytes (%) (Auto) 6.3 L 10.0-50.0 % Monocytes (%) (Auto) 10.7 0.0-12.0 % Eosinophils (%) (Auto) 0.2 0.0-7.0 % Basophils (%) (Auto) 0.3 0.0-2.0 % Neutrophils # (Auto) 6.4 1.6-8.6 10 ^3/uL Lymphocytes # (Auto) 0.5 0.4-5.4 10 ^3/uL Monocytes # (Auto) 0.8 0-1.3 10 ^3/uL Eosinophils # (Auto) 0 0-0.8 10 ^3/uL Basophils # (Auto) 0 0-0.2 10 ^3/uL Nucleated Red Blood Cells 0.2 % Troponin I High Sensitivity 60 *H </=54 ng/L Lactic Acid Level 2.9 *H 0.4-2.0 mmol/L Test 04/11/25 20:38 Range/Units B-Type Natriuretic Peptide > 5000.00 0-100 pg/mL Lipase 29 12-53 U/L Plasma/Serum Blood Alcohol 3.2 <10 mg/dL PROCEDURE(s): CXRP - CHEST PORTABLE REASON: Shortness of breath ORDER NUMBER(s): [id number], ACCESSION NUMBER(s): [id number] CHEST RADIOGRAPH Indication: Shortness of breath Technique: Single frontal view of the chest was obtained COMPARISON: XR CHEST 1 VIEW on DOS: 04/04/25, XY CHEST XRAY 1 VIEW on DOS: 03/20/25, XY CHEST PORTABLE on DOS: 03/05/25, CT CHEST on DOS: 01/08/25, XY CHEST PORTABLE on DOS: 12/27/24 FINDINGS: Left chest wall pacing device with lead tips unchanged Cardiac silhouette is enlarged diffuse prominence of the pulmonary vasculature and slight prominence of interstitium. No dense focal airspace disease. No significant pleural effusions or pneumothorax. IMPRESSION: 1. Cardiomegaly with mild pulmonary vascular congestion. Assessment Acute on chronic decompensated heart failure with elevated BNP, NYHA IV Pulmonary vascular congestion on imaging and lactic acidosis Troponin elevation likely secondary to demand ischemia rather than acute coronary syndrome given flat trend and absence of ischemic EKG changes CAD s/p 4 JAMEL Paroxysmal AFib, CHADS-VASc score 4, HAS-BLED score 2 ICD with LV lead fracture Severe MR Pulmonary hypertension Polysubstance abuse Homelessness Transaminitis RADHA on CKD 3B Prognosis guarded given EF 5%, recurrent admissions, and ongoing psychosocial beer Plan/Recommendation ( ): * IV diuresis with Bumex, monitor stric I & O, and daily weights * Continue GDMT for HF as tolerated * Electrolyte monitoring and repletion as needed * Continue amiodarone, therapeutic Lovenox, switched to DOAC on DC * Monitor troponin trend, but no evidence of acute NE at present * Telemetry monitoring for arrhythmia * Address lactic acidosis and transaminases by primary team * Recommends Social work consult for homelessness, substance use, and medication adherence support * Counseled on cessation of polysubstance use * Counseled on medical compliance * Monitor kidney function, nephrology consult per primary team if needed This medical document was created using an electronic medical record system with voice recognition software and computerized dictation system. Although this document has been carefully reviewed, there might still be some phonetic and typographical errors. Occasional wrong-word or ``sound-alike substitutions may have occurred due to the inherent limitations of voice recognition software. These areas are purely typographical due to imperfections of the software prog josephine and do not reflect any compromise in the patient's medical care. Please read the chart carefully and recognize, using context, where these substitutions have occurred. Plan discussed with: Patient Plan discussed with: Patient NYHA Physical activity limitations: Class4(Severe)discomfort Date of Service: Apr 12, 2025 Billing Provider: CHAITANYA CULP MD Cardiology Common Codes: CONSULT ONLY Cardiology Consultation Codes: [id number] CONSULT <45MIN [employer] Apr 12, 2025 09:48
[2025-04-12] MEDS ORDERED: FUROSEMIDE 40 MG/4 ML VIAL IV SCH (10:00)
[2025-04-12] MEDS: FAMOTIDINE (10MG/ML) 2ML VL IV SCH (11:25)
[2025-04-12] MEDS: BUMETANIDE 1mg/4ml VIAL (0.25mg/ml) IV ONE (11:26)
[2025-04-12] MEDS: ENOXAPARIN SOD 100 MG/1 ML SYRINGE SC ONE (12:38)
--- NOTE | 2025-04-12 14:01 | DVHPN2 ---
Subjective Patient denies any symptoms at this time. Reviewed: Care Plan, H&P, Labs, Medications, Previous Orders Changes from previous H/P or p: No Changes General: Per HPI Eyes: No Pain, No Vision change, No Conjunctivae inflammation, No Eyelid inflammation, No Other, No Redness ENT: No Ear pain, No Ear discharge, No Nose pain, No Nose discharge, No Nose congestion, No Mouth pain, No Mouth swelling, No Throat pain, No Throat swelling, No Other Cardiovascular: Chest Pain; No Palpitations, No Orthopnea, No Paroxysmal Noc. Dyspnea, No Edema, No Lt Headedness, No Other Respiratory: No Cough, No Dry; Shortness of breath; No SOB with excertion, No Wheezing, No Hemoptysis, No Pleuritic Pain, No Sputum, No Other Gastrointestinal: No Nausea, No Vomiting, No Abdominal Pain, No Diarrhea, No Constipation, No Melena, No Hematochezia, No Other Genitourinary: No Dysuria, No Frequency, No Incontinence, No Hematuria, No Retention, No Other Musculoskeletal: No other, No neck pain, No shoulder pain, No arm pain, No back pain, No hand pain, No leg pain, No foot pain Skin: No Rash, No Lesions, No Jaundice, No Bruising, No Other Objective Vitals Vital Signs Date Time Temp Pulse Resp B/P (MAP) Pulse Ox O2 Delivery O2 Flow Rate FiO2 04/12/25 11:26 106/79 04/12/25 10:00 79 14 97 04/12/25 08:10 4.0 04/12/25 08:00 97.9 97.9 04/12/25 08:00 Nasal Cannula* 28 General Appearance: Alert, Oriented X3, Cooperative, mild distress HEENT: Atraumatic, PERRLA Lungs: Clear to auscultation, Normal air movement Cardiovascular: Normal S1, Normal S2 Musculoskeletal: Normal sensory function, Normal motor function Neuro: Normal gait, Normal speech Skin: Dry, Intact Psych/Mental Status: Mental status NL, Mood NL Medications Current Medications Medications Dose Ordered Sig/Brian Route Start Time Stop Time Status Last Admin Dose Admin Aspirin 81 mg DAILY PO 04/12/25 10:00 04/12/25 11:25 81 MG Ibuprofen 600 mg Q6HP PRN PO 04/12/25 00:15 Famotidine 20 mg DAILY IV 04/12/25 10:00 04/12/25 11:25 20 MG Atorvastatin Calcium 10 mg HS PO 04/12/25 22:00 Sodium Chloride 10 ml Q8HR IV 04/12/25 06:00 04/12/25 06:00 10 ML Acetaminophen/ Hydrocodone Bitart 1 tab Q4HP PRN PO 04/12/25 00:15 Ondansetron HCl 4 mg Q4HP PRN IV 04/12/25 00:15 04/12/25 01:26 4 MG Docusate Sodium 100 mg BIDPRN PRN PO 04/12/25 00:15 Morphine Sulfate 2 mg Q4HPRN PRN IV 04/12/25 00:15 04/12/25 01:21 2 MG Nitroglycerin 0.4 mg Q5MINP PRN SL 04/12/25 00:15 Morphine Sulfate 2 mg Q30M PRN IV 04/12/25 00:15 Albuterol 2.5 mg Q4HPRN PRN NEB 04/12/25 06:00 Bumetanide 1 mg BIDD IV 04/12/25 18:00 Amiodarone HCl 200 mg BID PO 04/12/25 22:00 Digoxin 0.125 mg DAILY PO 04/13/25 10:00 Spironolactone 25 mg DAILY PO 04/13/25 10:00 Carvedilol 6.25 mg BID PO 04/12/25 22:00 Patient Own Medication 10 mg DAILY PO 04/13/25 10:00 Potassium Chloride 10 meq BID PO 04/12/25 22:00 UNV Patient Own Medication 10 mg DAILY PO 04/13/25 10:00 UNV Patient Own Medication 1 tab DAILY PO 04/13/25 10:00 Enoxaparin Sodium 90 mg Q12HR SC 04/12/25 22:00 Laboratory Results Laboratory Tests 04/12/25 04:52 04/12/25 05:56 Chemistry Test 04/11/25 20:38 04/12/25 05:56 Albumin 3.8 g/dL (3.2-4.8) 3.7 g/dL (3.2-4.8) Calcium Level 9.4 mg/dL (8.7-10.4) 9.5 mg/dL (8.7-10.4) Total Protein 6.2 g/dL (5.7-8.2) Pending Lipid panel Test 04/11/25 20:38 Lipase 29 U/L (12-53) Cardiac Markers Test 04/11/25 20:38 B-Type Natriuretic Peptide > 5000.00 pg/mL (0-100) LFT Test 04/11/25 20:38 04/12/25 05:56 Alanine Aminotransferase (ALT) 87 U/L (7-40) H 88 U/L (7-40) H Alkaline Phosphatase 226 U/L (46-116) H 223 U/L (46-116) H Aspartate Amino Transferase (AST) 193 U/L (13-40) H 195 U/L (13-40) H Total Bilirubin 14.7 mg/dL (0.2-1.0) H 15.0 mg/dL (0.2-1.0) H Labs and/or images reviewed: Labs reviewed by me, Image(s) reviewed by me Assessment/Plan Assessment/Plan Impression: -acute decompensated systolic heart failure -cirrhosis -acute kidney injury, vasomotor nephropathy -hypervolemic hyponatremia -history of ICD placement -CAD with history of stent placement -NSTEMI type 2 secondary to volume overload Plan: -continue IV diuresis -guideline directed medical therapy -fluid restriction -stop Lovenox -continue digoxin and amiodarone -repeat labs in a.m. -cardiology consultation -consider Dobutrex if patient has hemodynamics does not improve tomorrow Total time spent with patient discussing and formulating plan of care: 35 minutes. This medical document was created using an electronic medical record system with [employer] dictation system. Although this document has been carefully reviewed, there may still be some phonetic and typographical errors. These areas are purely typographical due to imperfections of the software programs, and do not reflect any compromise in the patient's medical care. Plan discussed with: Patient, Other (RN) My Orders Orders - BRENDA FISHER NP Procedure Category Date Status Time Ammonia LAB 04/13/25 Verified 04:00 Date of Service: Apr 12, 2025 Billing Provider: BRENDA FISHER NP Common Visit Codes: [id number] INP/OBS CARE(HIGH) BRENDA FISHER NP Apr 12, 2025 14:01
[2025-04-12 14:29] LABS: Urine Protein, UAD Negative (Negative)
[2025-04-12 15:27] LABS: Cannabinoid Screen, Urine Pos (NEGATIVE)
[2025-04-12 15:28] LABS: Amphetamine Screen, Urine Neg (NEGATIVE); Barbiturate Scree,Urine Neg (NEGATIVE); Benzodiazephine Screen, Urine Neg (NEGATIVE); Cocaine Screen, Urine Neg (NEGATIVE); Opiate Scree,Urine Neg (NEGATIVE); Phencyclidine Screen, Urine Neg (NEGATIVE)
[2025-04-12] MEDS ORDERED: BUMETANIDE 1mg/4ml VIAL (0.25mg/ml) IV SCH (18:00)
[2025-04-12] MEDS: BUMETANIDE 1mg/4ml VIAL (0.25mg/ml) IV SCH (18:18)
[2025-04-12] MEDS ORDERED: ATORVASTATIN 20 MG TAB PO SCH (22:00)
[2025-04-12] MEDS ORDERED: ENOXAPARIN SOD 100 MG/1 ML SYRINGE SC SCH (22:00)
[2025-04-12] MEDS: POTASSIUM CHL 10 Meq TABLET PO SCH (22:47)
[2025-04-12] MEDS: AMIODARONE HCL 200 MG TAB PO SCH (22:48)
[2025-04-12] MEDS: ATORVASTATIN 20 MG TAB PO SCH (22:48)
[2025-04-12] MEDS: CARVEDILOL 3.125 MG TAB PO SCH (22:52)
--- NOTE | 2025-04-12 23:07 | DVHINCON2 ---
Date Seen: Apr 12, 2025 Referring Physician ABNER Lopez Reason for Consultation CHF exacerbation History of Present Illness This is a 65-year-old male with an extensive cardiac history presented to the ED with a complaint of chest pain, generalized weakness, and shortness of breath that began yesterday morning. On evaluation, the patient is alert and oriented but a poor historian. At the time of assessment, he denies ongoing chest pain. A recent echocardiogram showed severely reduced LV systolic function with EF of 5%. He is currently taking Bumex. A 12 lead ECG revealing normal sinus rhythm with no acute ischemic change.BNP > 5000, and trops flat in 60s. Chest x-ray shows cardiomegaly with pulmonary vascular congestion. Patient was admitted to the hospital. I am asked to consult on this patient. Past Medical History HFrEF NICM Paroxysmal AFib Status post ICD placement Mitral regurgitation Elevated liver enzymes Pulmonary hypertension Medical noncompliance Past Surgical History Permanent pacemaker Family History: FH: arthritis FH: cancer aunt, Onset:50's - 60 FH: diabetes mellitus G8 MOTHER, , Onset:Unknown FH: stroke G8 MOTHER, , Onset:Unknown FHx: heart disease Family history: Cardiovascular disease G8 MOTHER, , Onset:Unknown Family history: Hypertension G8 MOTHER, , Onset:Unknown Allergies: Coded Allergies: Shellfish Allergy (Unverified Allergy, Severe, 09/11/23) CRAB Uncoded Allergies: CRAB (Allergy, Severe, 08/06/17) Home Meds Active Scripts Famotidine (PEPCID TABLET) 20 Mg Tb, 1 TAB PO BID for 30 Days, #60 TAB 0 Refills Prov:BRAIN LAI MD 03/07/25 Potassium Chloride (Potassium Chloride ER) 10 Meq Tab, 20 MEQ PO DAILY for 30 Days, #60 TAB Prov:MEME JAIME MD 04/30/24 Reported Medications Amiodarone HCl (Amiodarone HCl) 200 Mg Tab, 1 TAB PO BID for 30 Days, #60 03/25/25 Carvedilol (Carvedilol) 6.25 Mg Tab, 1 TAB PO BID for 30 Days, #60 03/25/25 Spironolactone (Spironolactone) 25 Mg Tab, 1 TAB PO DAILY for 90 Days, #90 03/25/25 Bumetanide (Bumetanide) 1 Mg Tab, 1 TAB PO BID for 90 Days, #180 03/25/25 Aspirin (Aspirin Low Dose) 81 Mg Tab, 1 DAILY 09/04/24 Mexiletine HCl (Mexiletine Hydrochloride) 150 Mg Cap, 1 09/04/24 Pantoprazole Sodium Sesquihydr (Pantoprazole Sodium) 40 Mg Tab, 40 MG PO DAILY, TAB 05/12/24 Simvastatin (Simvastatin) 10 Mg Tab, 10 MG PO DAILY, MG 05/12/24 Midodrine HCl (Midodrine Hydrochloride) 5 Mg Tab, 2 TAB PO TID, TAB 05/10/24 Cholecalciferol (VITAMIN D3) 2,000 Unit Tab, 1 TAB PO DAILY 01/09/24 Digoxin (Digoxin) 125 Mcg Tab, 1 TAB PO DAILY 01/09/24 Vericiguat (Verquvo) 10 Mg Tab, 1 TAB PO DAILY 01/09/24 Ivabradine Hydrochloride (Corlanor) 5 Mg Tab, 1 TAB PO BID 08/16/23 Nitroglycerin (NTROSTAT SUBLINGUAL) 0.4 Mg Sl, 0.4 MG SL PRN, TAB *MAY REPEAT EVERY 5 MINUTES X 3 TOTAL IF NO RELIEF, INITIATE ANALGESIC THERAPY. NOTIFY PHYSICIAN *Do not crush. 05/15/23 Dapagliflozin Propanediol (Farxiga) 10 Mg Tab, 10 MG PO DAILY, TAB 05/15/23 Aspirin (Aspir-Low) 81 Mg Tab, 81 MG PO DAILY, MG 05/15/23 Current Medications Current Medications Medications (Trade) Dose Ordered Sig/Brian Route PRN Reason Start Time Stop Time Status Last Admin Furosemide (Lasix Injection) 40 mg DAILY IV 04/12/25 10:00 04/12/25 09:48 DC Aspirin 81 mg DAILY PO 04/12/25 10:00 04/12/25 11:25 Ibuprofen (Motrin Tablet) 600 mg Q6HP PRN PO PAIN SCALE 1-3 OR TEMP>100.4 04/12/25 00:15 Famotidine (Pepcid Injection) 20 mg DAILY IV 04/12/25 10:00 04/12/25 11:25 Atorvastatin Calcium (Lipitor) 10 mg HS PO 04/12/25 22:00 Sodium Chloride (Saline Lock Ns) 10 ml Q8HR IV 04/12/25 06:00 04/12/25 06:00 Acetaminophen/ Hydrocodone Bitart ([place] 5/325MG Tab) 1 tab Q4HP PRN PO MODERATE PAIN (4-6 PAIN SCALE) 04/12/25 00:15 Ondansetron HCl (Zofran) 4 mg Q4HP PRN IV NAUSEA / VOMITING 04/12/25 00:15 04/12/25 01:26 Docusate Sodium (Colace Capsule) 100 mg BIDPRN PRN PO FOR CONSTIPATION 04/12/25 00:15 Morphine Sulfate 2 mg Q4HPRN PRN IV SEVERE PAIN (7-10 PAIN SCALE) 04/12/25 00:15 04/12/25 01:21 Nitroglycerin (Ntrostat Sublingual) 0.4 mg Q5MINP PRN SL FOR CHEST PAIN 04/12/25 00:15 Morphine Sulfate 2 mg Q30M PRN IV FOR CHEST PAIN 04/12/25 00:15 Albuterol (Ventolin Medneb) 2.5 mg Q4HR PRN NEB SHORTNESS OF BREATH 04/12/25 05:45 04/12/25 05:56 DC Albuterol (Ventolin Medneb) 2.5 mg Q4HPRN PRN NEB SHORTNESS OF BREATH 04/12/25 06:00 Bumetanide (Bumex Injection) 2 mg BIDD IV 04/12/25 18:00 04/12/25 10:28 DC Bumetanide (Bumex Injection) 1 mg BIDD IV 04/12/25 18:00 Amiodarone HCl (Cordarone Tablet) 200 mg BID PO 04/12/25 22:00 Digoxin (Lanoxin Tablet) 0.125 mg DAILY PO 04/13/25 10:00 Spironolactone (Aldactone) 25 mg DAILY PO 04/13/25 10:00 Carvedilol (Coreg Tablet) 6.25 mg BID PO 04/12/25 22:00 Patient Own Medication 10 mg DAILY PO 04/13/25 10:00 Potassium Chloride (Klor-Con Tablet) 10 meq BID PO 04/12/25 22:00 UNV Patient Own Medication 10 mg DAILY PO 04/13/25 10:00 UNV Patient Own Medication 1 tab DAILY PO 04/13/25 10:00 Enoxaparin Sodium (Lovenox) 90 mg Q12HR SC 04/12/25 22:00 04/12/25 13:56 DC Review of Systems Constitutional: No symptom reported Ears, Nose, & Throat: No symptom reported Eyes: No symptom reported Neurological: No symptoms reported Pulmonary/Respiratory: Shortness of breath Cardiovascular: Chest pain, dyspnea Gastrointestinal: No symptom reported Genitourinary: No symptom reported Musculoskeletal: No symptom reported Skin: No symptom reported Psychiatric: No symptom reported Endocrine: No symptom reported Hemotologic/Lymphatic: No symptom reported Vital Signs Vital Signs Date Time Temp Pulse Resp B/P (MAP) Pulse Ox O2 Delivery O2 Flow Rate FiO2 04/12/25 11:26 106/79 04/12/25 10:00 79 14 97 04/12/25 08:10 4.0 04/12/25 08:00 97.9 97.9 04/12/25 08:00 Nasal Cannula* 28 Physical Exam GENERAL: Alert and oriented x 3. No acute distress. EYES: PERRL, EOMI. Anicteric. HENT: Moist mucous membranes. LUNGS: Decreased breath sounds. CARDIOVASCULAR: Regular rate and rhythm. ABDOMEN: Soft, nontender and nondistended. EXTREMITIES: BLE edema 2+. NEUROLOGIC: No focal neurological deficits. SKIN: Warm, dry. Labs/Diagnostic Data Labs Test 04/12/25 05:56 04/12/25 04:52 04/11/25 23:29 04/11/25 22:30 Range/Units Sodium Level 123 L 136-145 mmol/L Potassium Level 4.9 3.5-5.1 mmol/L Chloride Level 88 L 98-107 mmol/L Carbon Dioxide Level 23 20-31 mmol/L Anion Gap 12 5-15 Blood Urea Nitrogen 40 #H 9-23 mg/dL Serum Glucose 90 74-106 mg/dL Calcium Level 9.5 8.7-10.4 mg/dL Total Bilirubin 15.0 H 0.2-1.0 mg/dL Aspartate Amino Transferase (AST) 195 H 13-40 U/L Alanine Aminotransferase (ALT) 88 H 7-40 U/L Alkaline Phosphatase 223 H 46-116 U/L Albumin 3.7 3.2-4.8 g/dL White Blood Count 7.8 4.4-10.8 10^3/uL Red Blood Count 4.38 L 4.5-5.90 10^6/uL Hemoglobin 13.9 13.5-17.5 g/dL Hematocrit 40.9 L 41.0-53.0 % Mean Corpuscular Volume 93.5 80.0-100.0 fL Mean Corpuscular Hemoglobin 31.7 28.0-32.0 pg Mean Corpuscular Hemoglobin Concent 34.0 32.0-36.0 g/dL Red Cell Distribution Width 21.3 H 11.8-14.3 % Platelet Count 125 L 140-450 10^3/uL Mean Platelet Volume 9.6 6.9-10.8 fL Neutrophils (%) (Auto) 82.5 H 37.0-80.0 % Lymphocytes (%) (Auto) 6.3 L 10.0-50.0 % Monocytes (%) (Auto) 10.7 0.0-12.0 % Eosinophils (%) (Auto) 0.2 0.0-7.0 % Basophils (%) (Auto) 0.3 0.0-2.0 % Neutrophils # (Auto) 6.4 1.6-8.6 10 ^3/uL Lymphocytes # (Auto) 0.5 0.4-5.4 10 ^3/uL Monocytes # (Auto) 0.8 0-1.3 10 ^3/uL Eosinophils # (Auto) 0 0-0.8 10 ^3/uL Basophils # (Auto) 0 0-0.2 10 ^3/uL Nucleated Red Blood Cells 0.2 % Troponin I High Sensitivity 60 *H </=54 ng/L Lactic Acid Level 2.9 *H 0.4-2.0 mmol/L Test 04/11/25 20:38 04/11/25 20:33 Range/Units B-Type Natriuretic Peptide > 5000.00 0-100 pg/mL Lipase 29 12-53 U/L Plasma/Serum Blood Alcohol 3.2 <10 mg/dL Urine Color Yellow Yellow Urine Clarity Clear Clear Urine pH 5.0 5.0-9.0 Urine Specific [place] 1.006 1.001-1.035 Urine Protein Negative Negative Urine Ketones Negative Negative Urine Blood Negative Negative /uL Urine Nitrite Negative Negative Urine Bilirubin Negative Negative Urine Urobilinogen Normal Negative mg/dL Urine Leukocyte Esterase Negative Negative /uL Urine RBC <1 0 - 3 /hpf Urine Microscopic WBC < 1 0-3 /HPF Urine Squamous Epithelial Cells None seen <5 /hpf Urine Bacteria None seen None Seen /hpf Urine Hyaline Casts Few 0 - 2 /lpf Urine Glucose Normal Normal mg/dL Assessment Acute on chronic decompensated heart failure with elevated BNP, NYHA IV. Pulmonary vascular congestion on imaging and lactic acidosis. Troponin elevation likely secondary to demand ischemia rather than acute coronary syndrome given flat trend and absence of ischemic EKG changes. CAD s/p 4 JAMEL. Paroxysmal AFib, CHADS-VASc score 4, HAS-BLED score 2. ICD with LV lead fracture. Severe MR. Pulmonary hypertension. Polysubstance abuse. Homelessness. Transaminitis. RADHA on CKD 3B. Prognosis guarded given EF 5%, recurrent admissions, and ongoing psychosocial beer. Plan/Recommendation I agree with your ongoing assessment and care of plan. Patient has been seen by Hattie Singh NP on my behalf, her and I discussed the plan with the patient. IV diuresis with Bumex, monitor stric I & O, and daily weights. Continue GDMT for HF as tolerated. Electrolyte monitoring and repletion as needed. Continue amiodarone, therapeutic Lovenox, switched to DOAC on DC. Monitor troponin trend, but no evidence of acute SC at present. Telemetry monitoring for arrhythmia. Address lactic acidosis and transaminases by primary team. Recommends Social work consult for homelessness, substance use, and medication adherence support. Counseled on cessation of polysubstance use. Counseled on medical compliance. Monitor kidney function, nephrology consult per primary team if needed. Additional plan as per the hospital course. Plan discussed with: Patient NYHA Physical activity limitations: Class4(Severe)discomfort Date of Service: Apr 12, 2025 Billing Provider: CHAITANYA CULP MD Cardiology Common Codes: [id number] INP/OBS CARE (High) Cardiology Consultation Codes: [id number] CONSULT <45MIN CHAITANYA CULP MD Apr 12, 2025 14:39
[2025-04-13] VITALS (7 sets, daily range): BP systolic 106; BP diastolic 70; PULSE 60–71; RESP 16–19; TEMP 97.6–98.7; O2SAT 95–100
[2025-04-13 05:06] LABS: Hematocrit 37.9 % (41.0-53.0); Hemoglobin 12.9 g/dL (13.5-17.5); Mean Corpuscular Hemoglobin 32.0 pg (28.0-32.0); Mean Corpuscular Volume 93.8 fL (80.0-100.0); Nucleated Red Blood Cells % 0.2 %
[2025-04-13 05:22] LABS: Anion Gap 11 (5-15); Carbon Dioxide 28 mmol/L (20-31); Potassium 3.9 mmol/L (3.5-5.1)
[2025-04-13 05:25] LABS: Alanine Aminotransferase 73 U/L (7-40); Albumin 3.0 g/dL (3.2-4.8); Alkaline Phosphatase 179 U/L (46-116); Bilirubin, Total 12.3 mg/dL (0.2-1.0); Blood Urea Nitrogen 55 mg/dL (9-23); Calcium 8.4 mg/dL (8.7-10.4); Chloride 90 mmol/L (98-107); Glucose 74 mg/dL (74-106); Sodium 129 mmol/L (136-145)
[2025-04-13 05:27] LABS: BUN/Creatinine Ratio 33.5 (10.0-20.0)
[2025-04-13 05:34] LABS: Total Protein 5.0 g/dL (5.7-8.2)
--- NOTE | 2025-04-13 07:53 | ECG ---
[facility] Test Date: 2025-04-12 Test Time: 23:12:56 Pat Name: SUHAIL VILLALTA Department: Room: [address] [place] [address] Gender: M Respiratory Equipment Assistant: JUAN CARLOS : 1960 Requested By: JUMANA AGUILAR Order Number: [id number] Reading MD: Adrián Mock Measurements Intervals [place] Rate: 74 P: 44 OK: 217 QRS: -80 QRSD: 170 T: 86 QT: 468 QTc: 520 Interpretive Statements Sinus rhythm Ventricular premature complex Prolonged OK interval Left bundle branch block Electronically Signed On 04-13-2025 19:19:01 PDT by Adrián Mock Please click the below link to view image of tracing.
--- NOTE | 2025-04-13 09:30 | DVHPN2 ---
Subjective Patient denies any symptoms at this time. Reviewed: Care Plan, H&P, Labs, Medications, Previous Orders Changes from previous H/P or p: No Changes General: Per HPI Eyes: No Pain, No Vision change, No Conjunctivae inflammation, No Eyelid inflammation, No Other, No Redness ENT: No Ear pain, No Ear discharge, No Nose pain, No Nose discharge, No Nose congestion, No Mouth pain, No Mouth swelling, No Throat pain, No Throat swelling, No Other Cardiovascular: Chest Pain; No Palpitations, No Orthopnea, No Paroxysmal Noc. Dyspnea, No Edema, No Lt Headedness, No Other Respiratory: No Cough, No Dry; Shortness of breath; No SOB with excertion, No Wheezing, No Hemoptysis, No Pleuritic Pain, No Sputum, No Other Gastrointestinal: No Nausea, No Vomiting, No Abdominal Pain, No Diarrhea, No Constipation, No Melena, No Hematochezia, No Other Genitourinary: No Dysuria, No Frequency, No Incontinence, No Hematuria, No Retention, No Other Musculoskeletal: No other, No neck pain, No shoulder pain, No arm pain, No back pain, No hand pain, No leg pain, No foot pain Skin: No Rash, No Lesions, No Jaundice, No Bruising, No Other Objective Vitals Vital Signs Date Time Temp Pulse Resp B/P (MAP) Pulse Ox O2 Delivery O2 Flow Rate FiO2 04/13/25 08:43 62 04/13/25 07:50 16 96 Nasal Cannula* 2 28 04/13/25 07:49 96.9 103/70 (81) 96.9 Intake/Output Intake and Output 04/13/25 07:00 Output Total 3600 ml Balance -3600 ml Output Urine Total 3600 ml General Appearance: Alert, Oriented X3, Cooperative, mild distress HEENT: Atraumatic, PERRLA Lungs: Clear to auscultation, Normal air movement Cardiovascular: Normal S1, Normal S2 Musculoskeletal: Normal sensory function, Normal motor function Neuro: Normal gait, Normal speech Skin: Dry, Intact Psych/Mental Status: Mental status NL, Mood NL Medications Current Medications Medications Dose Ordered Sig/Brian Route Start Time Stop Time Status Last Admin Dose Admin Aspirin 81 mg DAILY PO 04/12/25 10:00 04/12/25 11:25 81 MG Ibuprofen 600 mg Q6HP PRN PO 04/12/25 00:15 Famotidine 20 mg DAILY IV 04/12/25 10:00 04/12/25 11:25 20 MG Atorvastatin Calcium 10 mg HS PO 04/12/25 22:00 04/12/25 22:48 10 MG Sodium Chloride 10 ml Q8HR IV 04/12/25 06:00 04/13/25 06:00 10 ML Acetaminophen/ Hydrocodone Bitart 1 tab Q4HP PRN PO 04/12/25 00:15 Ondansetron HCl 4 mg Q4HP PRN IV 04/12/25 00:15 04/12/25 01:26 4 MG Docusate Sodium 100 mg BIDPRN PRN PO 04/12/25 00:15 Morphine Sulfate 2 mg Q4HPRN PRN IV 04/12/25 00:15 04/12/25 01:21 2 MG Nitroglycerin 0.4 mg Q5MINP PRN SL 04/12/25 00:15 Morphine Sulfate 2 mg Q30M PRN IV 04/12/25 00:15 Albuterol 2.5 mg Q4HPRN PRN NEB 04/12/25 06:00 Bumetanide 1 mg BIDD IV 04/12/25 18:00 04/13/25 05:56 1 MG Amiodarone HCl 200 mg BID PO 04/12/25 22:00 04/12/25 22:48 200 MG Digoxin 0.125 mg DAILY PO 04/13/25 10:00 Spironolactone 25 mg DAILY PO 04/13/25 10:00 Carvedilol 6.25 mg BID PO 04/12/25 22:00 04/12/25 22:52 6.25 MG Potassium Chloride 10 meq BID PO 04/12/25 22:00 04/12/25 22:47 10 MEQ Patient Own Medication 1 tab DAILY PO 04/13/25 10:00 Empaglifozin 10 mg DAILY PO 04/13/25 10:00 Laboratory Results Laboratory Tests 04/13/25 04:48 Chemistry Test 04/13/25 04:48 Albumin 3.0 g/dL (3.2-4.8) L Calcium Level 8.4 mg/dL (8.7-10.4) L Total Protein 5.0 g/dL (5.7-8.2) L LFT Test 04/13/25 04:48 Alanine Aminotransferase (ALT) 73 U/L (7-40) H Alkaline Phosphatase 179 U/L (46-116) H Aspartate Amino Transferase (AST) 146 U/L (13-40) H Total Bilirubin 12.3 mg/dL (0.2-1.0) H Urinalysis Test 04/11/25 20:33 Urine Color Yellow (Yellow) Urine Clarity Clear (Clear) Urine pH 5.0 (5.0-9.0) Urine Specific [place] 1.006 (1.001-1.035) Urine Protein Negative (Negative) Urine Ketones Negative (Negative) Urine Blood Negative /uL (Negative) Urine Nitrite Negative (Negative) Urine Bilirubin Negative (Negative) Urine Urobilinogen Normal mg/dL (Negative) Urine Leukocyte Esterase Negative /uL (Negative) Urine RBC <1 /hpf (0 - 3) Urine Microscopic WBC < 1 /HPF (0-3) Urine Squamous Epithelial Cells None seen /hpf (<5) Urine Bacteria None seen /hpf (None Seen) Urine Hyaline Casts Few /lpf (0 - 2) Urine Glucose Normal mg/dL (Normal) Labs and/or images reviewed: Labs reviewed by me, Image(s) reviewed by me Assessment/Plan Assessment/Plan Impression: -acute decompensated systolic heart failure -cirrhosis -acute kidney injury, vasomotor nephropathy -hypervolemic hyponatremia -history of ICD placement -CAD with history of stent placement -NSTEMI type 2 secondary to volume overload Plan: -continue IV diuresis -guideline directed medical therapy : Add Jardiance -fluid restriction -continue digoxin and amiodarone -repeat labs in a.m. -cardiology consultation Total time spent with patient discussing and formulating plan of care: 35 minutes. This medical document was created using an electronic medical record system with [employer] dictation system. Although this document has been carefully reviewed, there may still be some phonetic and typographical errors. These areas are purely typographical due to imperfections of the software programs, and do not reflect any compromise in the patient's medical care. Plan discussed with: Patient, Other (RN) My Orders Orders - BRENDA FISHER NP Procedure Category Date Status Time Empagliflozin PHA 04/13/25 In Process (Jardiance) 10:00 Date of Service: Apr 13, 2025 Billing Provider: SALBINO,GUTIERREZ [employer] Common Visit Codes: [id number] INP/OBS CARE(HIGH) BRENDA FISHER [employer] Apr 13, 2025 09:30
[2025-04-13] MEDS: VERICIGUAT PO SCH (10:00)
[2025-04-13] MEDS: DIGOXIN 0.125 MG TAB PO SCH (10:22)
[2025-04-13] MEDS: SPIRONOLACTONE 25 MG TAB PO SCH (10:22)
[2025-04-13] MEDS: EMPAGLIFLOZIN 10 MG TAB PO SCH (10:22)
[2025-04-14] VITALS (11 sets, daily range): BP systolic 88–107; BP diastolic 54–80; PULSE 52–85; RESP 17–19; TEMP 94.5–98.3; O2SAT 95–100
--- NOTE | 2025-04-14 00:10 | DVHPN2 ---
Progress Note - Dictate Date Seen: Apr 13, 2025 Medical Necessity Reason Pt with a Central, PICC or Fol: No Subjective Patient was seen and evaluated in follow up. No overnight events. Patient denies any symptoms at this time. He is on 2 LPM NC. 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 Telemetry reviewed. vital signs Vital Sign Date Time Temp Pulse Resp B/P (MAP) Pulse Ox O2 Delivery O2 Flow Rate FiO2 04/13/25 18:46 105/73 04/13/25 17:36 64 18 04/13/25 17:05 97.6 95 97.6 04/13/25 07:50 Nasal Cannula* 2 28 Total Intake and Output 04/13/25 04/13/25 04/14/25 15:00 23:00 07:00 Intake Total 400 ml Output Total 1500 ml 450 ml Balance -1500 ml -50 ml medications Current Medications Medications Dose Ordered Sig/Brian Route Start Time Stop Time Status Last Admin Dose Admin Aspirin 81 mg DAILY PO 04/12/25 10:00 04/13/25 10:21 81 MG Ibuprofen 600 mg Q6HP PRN PO 04/12/25 00:15 Famotidine 20 mg DAILY IV 04/12/25 10:00 04/13/25 10:22 20 MG Atorvastatin Calcium 10 mg HS PO 04/12/25 22:00 04/12/25 22:48 10 MG Sodium Chloride 10 ml Q8HR IV 04/12/25 06:00 04/13/25 14:01 10 ML Acetaminophen/ Hydrocodone Bitart 1 tab Q4HP PRN PO 04/12/25 00:15 Ondansetron HCl 4 mg Q4HP PRN IV 04/12/25 00:15 04/12/25 01:26 4 MG Docusate Sodium 100 mg BIDPRN PRN PO 04/12/25 00:15 Morphine Sulfate 2 mg Q4HPRN PRN IV 04/12/25 00:15 04/13/25 17:05 2 MG Nitroglycerin 0.4 mg Q5MINP PRN SL 04/12/25 00:15 Morphine Sulfate 2 mg Q30M PRN IV 04/12/25 00:15 Albuterol 2.5 mg Q4HPRN PRN NEB 04/12/25 06:00 Bumetanide 1 mg BIDD IV 04/12/25 18:00 04/13/25 18:46 1 MG Amiodarone HCl 200 mg BID PO 04/12/25 22:00 04/13/25 10:20 200 MG Digoxin 0.125 mg DAILY PO 04/13/25 10:00 04/13/25 10:22 0.125 MG Spironolactone 25 mg DAILY PO 04/13/25 10:00 04/13/25 10:22 25 MG Carvedilol 6.25 mg BID PO 04/12/25 22:00 04/13/25 10:21 6.25 MG Potassium Chloride 10 meq BID PO 04/12/25 22:00 04/13/25 10:21 10 MEQ Patient Own Medication 1 tab DAILY PO 04/13/25 10:00 Empaglifozin 10 mg DAILY PO 04/13/25 10:00 04/13/25 10:22 10 MG objective GENERAL: Alert and oriented x 3. No acute distress. EYES: PERRL, EOMI. Anicteric. HENT: Moist mucous membranes. LUNGS: Decreased breath sounds. CARDIOVASCULAR: Regular rate and rhythm. ABDOMEN: Soft, nontender and nondistended. EXTREMITIES: BLE edema 2+. NEUROLOGIC: No focal neurological deficits. SKIN: Warm, dry. laboratory and microbiology Laboratory Tests 04/13/25 04:48 Test 04/13/25 04:48 Range/Units Serum Glucose 74 74-106 mg/dL Problem List Acute on chronic decompensated heart failure with elevated BNP, NYHA IV. Pulmonary vascular congestion on imaging and lactic acidosis. Troponin elevation likely secondary to demand ischemia rather than acute coronary syndrome given flat trend and absence of ischemic EKG changes. CAD s/p 4 JAMEL. Paroxysmal AFib, CHADS-VASc score 4, HAS-BLED score 2. ICD with LV lead fracture. Severe MR. Pulmonary hypertension. Polysubstance abuse. Homelessness. Transaminitis. RADHA on CKD 3B. Prognosis guarded given EF 5%, recurrent admissions, and ongoing psychosocial beer. Assessment/Plan Continued all current supportive medical care. Morphine and [place] for pain management. Amiodarone. Aspirin, Lipitor. Diuretics with Bumex. Coreg. Digoxin. Nitro SL. Additional plan as per the hospital course. Plan discussed with: Patient CHAITANYA CULP MD Apr 14, 2025 00:10
[2025-04-14] MEDS: MORPHINE SULFATE INJ 2 MG/ml SYRG IV PRN (05:36)
--- NOTE | 2025-04-14 13:06 | DVHPN2 ---
Subjective Patient denies any symptoms at this time. Reviewed: Care Plan, H&P, Labs, Medications, Previous Orders Changes from previous H/P or p: No Changes General: Per HPI Eyes: No Pain, No Vision change, No Conjunctivae inflammation, No Eyelid inflammation, No Other, No Redness ENT: No Ear pain, No Ear discharge, No Nose pain, No Nose discharge, No Nose congestion, No Mouth pain, No Mouth swelling, No Throat pain, No Throat swelling, No Other Cardiovascular: Chest Pain; No Palpitations, No Orthopnea, No Paroxysmal Noc. Dyspnea, No Edema, No Lt Headedness, No Other Respiratory: No Cough, No Dry; Shortness of breath; No SOB with excertion, No Wheezing, No Hemoptysis, No Pleuritic Pain, No Sputum, No Other Gastrointestinal: No Nausea, No Vomiting, No Abdominal Pain, No Diarrhea, No Constipation, No Melena, No Hematochezia, No Other Genitourinary: No Dysuria, No Frequency, No Incontinence, No Hematuria, No Retention, No Other Musculoskeletal: No other, No neck pain, No shoulder pain, No arm pain, No back pain, No hand pain, No leg pain, No foot pain Skin: No Rash, No Lesions, No Jaundice, No Bruising, No Other Objective Vitals Vital Signs Date Time Temp Pulse Resp B/P (MAP) Pulse Ox O2 Delivery O2 Flow Rate FiO2 04/14/25 10:15 66 04/14/25 10:00 91/56 04/14/25 09:00 97.6 17 100 97.6 04/14/25 07:30 Nasal Cannula* 1 24 Intake/Output Intake and Output 04/14/25 07:00 Intake Total 880 ml Output Total 2400 ml Balance -1520 ml Intake Oral 880 ml Output Urine Total 2400 ml General Appearance: Alert, Oriented X3, Cooperative, mild distress HEENT: Atraumatic, PERRLA Lungs: Clear to auscultation, Normal air movement Cardiovascular: Normal S1, Normal S2 Musculoskeletal: Normal sensory function, Normal motor function Neuro: Normal gait, Normal speech Skin: Dry, Intact Psych/Mental Status: Mental status NL, Mood NL Medications Current Medications Medications Dose Ordered Sig/Brian Route Start Time Stop Time Status Last Admin Dose Admin Aspirin 81 mg DAILY PO 04/12/25 10:00 04/14/25 10:15 81 MG Ibuprofen 600 mg Q6HP PRN PO 04/12/25 00:15 Famotidine 20 mg DAILY IV 04/12/25 10:00 04/14/25 10:14 20 MG Atorvastatin Calcium 10 mg HS PO 04/12/25 22:00 04/14/25 00:07 10 MG Sodium Chloride 10 ml Q8HR IV 04/12/25 06:00 04/14/25 06:31 10 ML Acetaminophen/ Hydrocodone Bitart 1 tab Q4HP PRN PO 04/12/25 00:15 Ondansetron HCl 4 mg Q4HP PRN IV 04/12/25 00:15 04/12/25 01:26 4 MG Docusate Sodium 100 mg BIDPRN PRN PO 04/12/25 00:15 Morphine Sulfate 2 mg Q4HPRN PRN IV 04/12/25 00:15 04/14/25 00:34 2 MG Nitroglycerin 0.4 mg Q5MINP PRN SL 04/12/25 00:15 Morphine Sulfate 2 mg Q30M PRN IV 04/12/25 00:15 04/14/25 05:36 2 MG Albuterol 2.5 mg Q4HPRN PRN NEB 04/12/25 06:00 Bumetanide 1 mg BIDD IV 04/12/25 18:00 04/14/25 05:45 1 MG Amiodarone HCl 200 mg BID PO 04/12/25 22:00 04/14/25 10:15 200 MG Digoxin 0.125 mg DAILY PO 04/13/25 10:00 04/14/25 10:15 0.125 MG Spironolactone 25 mg DAILY PO 04/13/25 10:00 04/14/25 10:15 25 MG Potassium Chloride 10 meq BID PO 04/12/25 22:00 04/14/25 10:15 10 MEQ Patient Own Medication 1 tab DAILY PO 04/13/25 10:00 Empaglifozin 10 mg DAILY PO 04/13/25 10:00 04/14/25 10:15 10 MG Carvedilol 3.125 mg BID PO 04/14/25 22:00 UNV Al Hydrox/Mg Hydrox/Simethicone 30 ml Q8HP PRN PO 04/14/25 13:00 UNV Laboratory Results Laboratory Tests 04/13/25 04:48 Urinalysis Test 04/11/25 20:33 Urine Color Yellow (Yellow) Urine Clarity Clear (Clear) Urine pH 5.0 (5.0-9.0) Urine Specific [place] 1.006 (1.001-1.035) Urine Protein Negative (Negative) Urine Ketones Negative (Negative) Urine Blood Negative /uL (Negative) Urine Nitrite Negative (Negative) Urine Bilirubin Negative (Negative) Urine Urobilinogen Normal mg/dL (Negative) Urine Leukocyte Esterase Negative /uL (Negative) Urine RBC <1 /hpf (0 - 3) Urine Microscopic WBC < 1 /HPF (0-3) Urine Squamous Epithelial Cells None seen /hpf (<5) Urine Bacteria None seen /hpf (None Seen) Urine Hyaline Casts Few /lpf (0 - 2) Urine Glucose Normal mg/dL (Normal) Labs and/or images reviewed: Labs reviewed by me, Image(s) reviewed by me Assessment/Plan Assessment/Plan Impression: -acute decompensated systolic heart failure -cirrhosis -acute kidney injury, vasomotor nephropathy -hypervolemic hyponatremia -history of ICD placement -CAD with history of stent placement -NSTEMI type 2 secondary to volume overload Plan: -continue IV diuresis -guideline directed medical therapy : Add Jard[place] -fluid restriction -continue digoxin and amiodarone, decreased carvedilol given marginal blood pressure -repeat labs in a.m. -cardiology consultation: Recommendations reviewed -[place] for indigestion Total time spent with patient discussing and formulating plan of care: 35 minutes. This medical document was created using an electronic medical record system with [employer] dictation system. Although this document has been carefully reviewed, there may still be some phonetic and typographical errors. These areas are purely typographical due to imperfections of the software programs, and do not reflect any compromise in the patient's medical care. Plan discussed with: Patient, Other (RN) My Orders Orders - BRENDA FISHER [employer] ENGINE[employer] Procedure Category Date Status Time Carvedilol Tablet PHA 04/14/25 Logged (Coreg Tablet) 22:00 Cardiac DIET 04/14/25 Transmitted Diet-2gna,Lofat,Lochol Lunch Alum & Mag PHA 04/14/25 Logged Hydrox-Simethicone 13:00 Comprehensive LAB 04/15/25 Verified Metabolic Panel 04:00 Date of Service: Apr 14, 2025 Billing Provider: BRENDA FISHER NP Common Visit Codes: [id number] INP/OBS CARE(HIGH) BRENDA FISHER NP Apr 14, 2025 13:06
[2025-04-14] MEDS: CARVEDILOL 3.125 MG TAB PO SCH (22:00)
[2025-04-15] VITALS (14 sets, daily range): BP systolic 90–108; BP diastolic 56–77; PULSE 68–86; RESP 16–21; TEMP 97.4–98.9; O2SAT 91–100
--- NOTE | 2025-04-15 00:07 | DVHPN2 ---
Progress Note - Dictate Date Seen: Apr 14, 2025 Medical Necessity Reason Pt with a Central, PICC or Fol: No Subjective Patient was seen and evaluated in follow up. Patient transitioned to room air. Patient does not voice any complaints. Patient denies any cardiac symptoms. Telemetry reviewed. vital signs Vital Sign Date Time Temp Pulse Resp B/P (MAP) Pulse Ox O2 Delivery O2 Flow Rate FiO2 04/14/25 22:00 52 107/80 04/14/25 21:37 18 04/14/25 20:34 98.0 95 98.0 04/14/25 20:00 Room Air* 0 21 Total Intake and Output 04/14/25 04/14/25 04/15/25 14:59 22:59 06:59 Intake Total 560 ml 1500 ml Output Total 1260 ml Balance 560 ml 240 ml medications Current Medications Medications Dose Ordered Sig/Brian Route Start Time Stop Time Status Last Admin Dose Admin Aspirin 81 mg DAILY PO 04/12/25 10:00 04/14/25 10:15 81 MG Ibuprofen 600 mg Q6HP PRN PO 04/12/25 00:15 Famotidine 20 mg DAILY IV 04/12/25 10:00 04/14/25 10:14 20 MG Atorvastatin Calcium 10 mg HS PO 04/12/25 22:00 04/14/25 21:06 10 MG Sodium Chloride 10 ml Q8HR IV 04/12/25 06:00 04/14/25 21:07 10 ML Acetaminophen/ Hydrocodone Bitart 1 tab Q4HP PRN PO 04/12/25 00:15 Ondansetron HCl 4 mg Q4HP PRN IV 04/12/25 00:15 04/12/25 01:26 4 MG Docusate Sodium 100 mg BIDPRN PRN PO 04/12/25 00:15 Morphine Sulfate 2 mg Q4HPRN PRN IV 04/12/25 00:15 04/14/25 21:07 2 MG Nitroglycerin 0.4 mg Q5MINP PRN SL 04/12/25 00:15 Morphine Sulfate 2 mg Q30M PRN IV 04/12/25 00:15 04/14/25 05:36 2 MG Albuterol 2.5 mg Q4HPRN PRN NEB 04/12/25 06:00 Bumetanide 1 mg BIDD IV 04/12/25 18:00 04/14/25 18:00 1 MG Amiodarone HCl 200 mg BID PO 04/12/25 22:00 04/14/25 21:06 200 MG Digoxin 0.125 mg DAILY PO 04/13/25 10:00 04/14/25 10:15 0.125 MG Spironolactone 25 mg DAILY PO 04/13/25 10:00 04/14/25 10:15 25 MG Potassium Chloride 10 meq BID PO 04/12/25 22:00 04/14/25 21:05 10 MEQ Patient Own Medication 1 tab DAILY PO 04/13/25 10:00 Empaglifozin 10 mg DAILY PO 04/13/25 10:00 04/14/25 10:15 10 MG Carvedilol 3.125 mg BID PO 04/14/25 22:00 Al Hydrox/Mg Hydrox/Simethicone 30 ml Q8HP PRN PO 04/14/25 13:00 objective GENERAL: Alert and oriented x 3. No acute distress. EYES: PERRL, EOMI. Anicteric. HENT: Moist mucous membranes. LUNGS: Decreased breath sounds. CARDIOVASCULAR: Regular rate and rhythm. ABDOMEN: Soft, nontender and nondistended. EXTREMITIES: BLE edema 2+. NEUROLOGIC: No focal neurological deficits. SKIN: Warm, dry. laboratory and microbiology Laboratory Tests 04/13/25 04:48 Test 04/13/25 04:48 Range/Units Serum Glucose 74 74-106 mg/dL Problem List Acute on chronic decompensated heart failure with elevated BNP, NYHA IV. Pulmonary vascular congestion on imaging and lactic acidosis. Troponin elevation likely secondary to demand ischemia rather than acute coronary syndrome given flat trend and absence of ischemic EKG changes. CAD s/p 4 JAMEL. Paroxysmal AFib, CHADS-VASc score 4, HAS-BLED score 2. ICD with LV lead fracture. Severe MR. Pulmonary hypertension. Polysubstance abuse. Homelessness. Transaminitis. RADHA on CKD 3B. Prognosis guarded given EF 5%, recurrent admissions, and ongoing psychosocial beer. Assessment/Plan Continued all current supportive medical care. Morphine and [place] for pain management. Amiodarone. Aspirin, Lipitor. Diuretics with Bumex. Coreg. Digoxin. Nitro SL. Additional plan as per the hospital course. Plan discussed with: Patient CHAITANYA CULP MD Apr 15, 2025 00:06
[2025-04-15 07:45] LABS: Anion Gap 10 (5-15); Carbon Dioxide 30 mmol/L (20-31); Glucose 79 mg/dL (74-106)
[2025-04-15 07:53] LABS: Alanine Aminotransferase 70 U/L (7-40); Albumin 3.1 g/dL (3.2-4.8); Alkaline Phosphatase 203 U/L (46-116); Bilirubin, Total 10.8 mg/dL (0.2-1.0); Calcium 8.2 mg/dL (8.7-10.4); Chloride 92 mmol/L (98-107); Potassium 3.3 mmol/L (3.5-5.1); Sodium 132 mmol/L (136-145); Total Protein 5.5 g/dL (5.7-8.2)
[2025-04-15 07:54] LABS: BUN/Creatinine Ratio 15.9 (10.0-20.0); Blood Urea Nitrogen 20 mg/dL (9-23)
--- NOTE | 2025-04-15 15:38 | DVHPN2 ---
Subjective Patient denies any symptoms at this time. Reviewed: Care Plan, H&P, Labs, Medications, Previous Orders Changes from previous H/P or p: No Changes General: Per HPI Eyes: No Pain, No Vision change, No Conjunctivae inflammation, No Eyelid inflammation, No Other, No Redness ENT: No Ear pain, No Ear discharge, No Nose pain, No Nose discharge, No Nose congestion, No Mouth pain, No Mouth swelling, No Throat pain, No Throat swelling, No Other Cardiovascular: Chest Pain; No Palpitations, No Orthopnea, No Paroxysmal Noc. Dyspnea, No Edema, No Lt Headedness, No Other Respiratory: No Cough, No Dry; Shortness of breath; No SOB with excertion, No Wheezing, No Hemoptysis, No Pleuritic Pain, No Sputum, No Other Gastrointestinal: No Nausea, No Vomiting, No Abdominal Pain, No Diarrhea, No Constipation, No Melena, No Hematochezia, No Other Genitourinary: No Dysuria, No Frequency, No Incontinence, No Hematuria, No Retention, No Other Musculoskeletal: No other, No neck pain, No shoulder pain, No arm pain, No back pain, No hand pain, No leg pain, No foot pain Skin: No Rash, No Lesions, No Jaundice, No Bruising, No Other Objective Vitals Vital Signs Date Time Temp Pulse Resp B/P (MAP) Pulse Ox O2 Delivery O2 Flow Rate FiO2 04/15/25 13:00 97.4 78 17 108/75 (86) 92 97.4 04/15/25 10:00 Room Air 0.0 04/15/25 10:00 21 Intake/Output Intake and Output 04/15/25 07:00 Intake Total 3320 ml Output Total 2340 ml Balance 980 ml Intake Oral 3320 ml Output Urine Total 2340 ml General Appearance: Alert, Oriented X3, Cooperative, mild distress HEENT: Atraumatic, PERRLA Lungs: Clear to auscultation, Normal air movement Cardiovascular: Normal S1, Normal S2 Musculoskeletal: Normal sensory function, Normal motor function Neuro: Normal gait, Normal speech Skin: Dry, Intact Psych/Mental Status: Mental status NL, Mood NL Medications Current Medications Medications Dose Ordered Sig/Brian Route Start Time Stop Time Status Last Admin Dose Admin Aspirin 81 mg DAILY PO 04/12/25 10:00 04/15/25 10:19 81 MG Ibuprofen 600 mg Q6HP PRN PO 04/12/25 00:15 Famotidine 20 mg DAILY IV 04/12/25 10:00 04/15/25 10:19 20 MG Atorvastatin Calcium 10 mg HS PO 04/12/25 22:00 04/14/25 21:06 10 MG Sodium Chloride 10 ml Q8HR IV 04/12/25 06:00 04/15/25 14:04 10 ML Acetaminophen/ Hydrocodone Bitart 1 tab Q4HP PRN PO 04/12/25 00:15 Ondansetron HCl 4 mg Q4HP PRN IV 04/12/25 00:15 04/12/25 01:26 4 MG Docusate Sodium 100 mg BIDPRN PRN PO 04/12/25 00:15 Morphine Sulfate 2 mg Q4HPRN PRN IV 04/12/25 00:15 04/15/25 10:59 2 MG Nitroglycerin 0.4 mg Q5MINP PRN SL 04/12/25 00:15 Morphine Sulfate 2 mg Q30M PRN IV 04/12/25 00:15 04/14/25 05:36 2 MG Albuterol 2.5 mg Q4HPRN PRN NEB 04/12/25 06:00 Bumetanide 1 mg BIDD IV 04/12/25 18:00 04/14/25 18:00 1 MG Amiodarone HCl 200 mg BID PO 04/12/25 22:00 04/15/25 10:18 200 MG Digoxin 0.125 mg DAILY PO 04/13/25 10:00 04/15/25 10:18 0.125 MG Spironolactone 25 mg DAILY PO 04/13/25 10:00 04/15/25 10:18 25 MG Potassium Chloride 10 meq BID PO 04/12/25 22:00 04/15/25 10:18 10 MEQ Patient Own Medication 1 tab DAILY PO 04/13/25 10:00 Empaglifozin 10 mg DAILY PO 04/13/25 10:00 04/15/25 10:19 10 MG Carvedilol 3.125 mg BID PO 04/14/25 22:00 Al Hydrox/Mg Hydrox/Simethicone 30 ml Q8HP PRN PO 04/14/25 13:00 Laboratory Results Laboratory Tests 04/13/25 04:48 04/15/25 06:57 Chemistry Test 04/15/25 06:57 Albumin 3.1 g/dL (3.2-4.8) L Calcium Level 8.2 mg/dL (8.7-10.4) L Total Protein 5.5 g/dL (5.7-8.2) L LFT Test 04/15/25 06:57 Alanine Aminotransferase (ALT) 70 U/L (7-40) H Alkaline Phosphatase 203 U/L (46-116) H Aspartate Amino Transferase (AST) 119 U/L (13-40) H Total Bilirubin 10.8 mg/dL (0.2-1.0) H Urinalysis Test 04/11/25 20:33 Urine Color Yellow (Yellow) Urine Clarity Clear (Clear) Urine pH 5.0 (5.0-9.0) Urine Specific [place] 1.006 (1.001-1.035) Urine Protein Negative (Negative) Urine Ketones Negative (Negative) Urine Blood Negative /uL (Negative) Urine Nitrite Negative (Negative) Urine Bilirubin Negative (Negative) Urine Urobilinogen Normal mg/dL (Negative) Urine Leukocyte Esterase Negative /uL (Negative) Urine RBC <1 /hpf (0 - 3) Urine Microscopic WBC < 1 /HPF (0-3) Urine Squamous Epithelial Cells None seen /hpf (<5) Urine Bacteria None seen /hpf (None Seen) Urine Hyaline Casts Few /lpf (0 - 2) Urine Glucose Normal mg/dL (Normal) Labs and/or images reviewed: Labs reviewed by me, Image(s) reviewed by me Assessment/Plan Assessment/Plan Impression: -acute decompensated systolic heart failure -cirrhosis -acute kidney injury, vasomotor nephropathy -hypervolemic hyponatremia -history of ICD placement -CAD with history of stent placement -NSTEMI type 2 secondary to volume overload Plan: -continue IV diuresis -continue current guideline directed -fluid restriction -continue digoxin and amiodarone, decreased carvedilol given marginal blood pressure -repeat labs in a.m. -cardiology consultation: Recommendations reviewed -[place] for indigestion Total time spent with patient discussing and formulating plan of care: 35 minutes. This medical document was created using an electronic medical record system with [employer] system. Although this document has been carefully reviewed, there may still be some phonetic and typographical errors. These areas are purely typographical due to imperfections of the software programs, and do not reflect any compromise in the patient's medical care. Plan discussed with: Patient, Daughter, Other (RN) Date of Service: Apr 15, 2025 Billing Provider: BRENDA FISHER NP Common Visit Codes: [id number] INP/OBS CARE(HIGH) BRENDA FISHER NP Apr 15, 2025 15:38
--- NOTE | 2025-04-15 22:05 | DVHPN2 ---
Progress Note - Dictate Date Seen: Apr 15, 2025 Medical Necessity Reason Pt with a Central, PICC or Fol: No Subjective Patient was seen and evaluated in follow up. Patient appears comfortable in bed. K 3.3, CL 92, AST 119, ALT 70. Telemetry reviewed. vital signs Vital Sign Date Time Temp Pulse Resp B/P (MAP) Pulse Ox O2 Delivery O2 Flow Rate FiO2 04/15/25 13:00 97.4 78 17 108/75 (86) 92 97.4 04/15/25 08:10 1.0 04/15/25 08:00 Room Air* 21 Total Intake and Output 04/14/25 04/14/25 04/15/25 15:00 23:00 07:00 Intake Total 560 ml 1500 ml 1260 ml Output Total 1260 ml 1080 ml Balance 560 ml 240 ml 180 ml medications Current Medications Medications Dose Ordered Sig/Brian Route Start Time Stop Time Status Last Admin Dose Admin Aspirin 81 mg DAILY PO 04/12/25 10:00 04/15/25 10:19 81 MG Ibuprofen 600 mg Q6HP PRN PO 04/12/25 00:15 Famotidine 20 mg DAILY IV 04/12/25 10:00 04/15/25 10:19 20 MG Atorvastatin Calcium 10 mg HS PO 04/12/25 22:00 04/14/25 21:06 10 MG Sodium Chloride 10 ml Q8HR IV 04/12/25 06:00 04/15/25 14:04 10 ML Acetaminophen/ Hydrocodone Bitart 1 tab Q4HP PRN PO 04/12/25 00:15 Ondansetron HCl 4 mg Q4HP PRN IV 04/12/25 00:15 04/12/25 01:26 4 MG Docusate Sodium 100 mg BIDPRN PRN PO 04/12/25 00:15 Morphine Sulfate 2 mg Q4HPRN PRN IV 04/12/25 00:15 04/15/25 10:59 2 MG Nitroglycerin 0.4 mg Q5MINP PRN SL 04/12/25 00:15 Morphine Sulfate 2 mg Q30M PRN IV 04/12/25 00:15 04/14/25 05:36 2 MG Albuterol 2.5 mg Q4HPRN PRN NEB 04/12/25 06:00 Bumetanide 1 mg BIDD IV 04/12/25 18:00 04/14/25 18:00 1 MG Amiodarone HCl 200 mg BID PO 04/12/25 22:00 04/15/25 10:18 200 MG Digoxin 0.125 mg DAILY PO 04/13/25 10:00 04/15/25 10:18 0.125 MG Spironolactone 25 mg DAILY PO 04/13/25 10:00 04/15/25 10:18 25 MG Potassium Chloride 10 meq BID PO 04/12/25 22:00 04/15/25 10:18 10 MEQ Patient Own Medication 1 tab DAILY PO 04/13/25 10:00 Empaglifozin 10 mg DAILY PO 04/13/25 10:00 04/15/25 10:19 10 MG Carvedilol 3.125 mg BID PO 04/14/25 22:00 Al Hydrox/Mg Hydrox/Simethicone 30 ml Q8HP PRN PO 04/14/25 13:00 objective GENERAL: Alert and oriented x 3. No acute distress. EYES: PERRL, EOMI. Anicteric. HENT: Moist mucous membranes. LUNGS: Decreased breath sounds. CARDIOVASCULAR: Regular rate and rhythm. ABDOMEN: Soft, nontender and nondistended. EXTREMITIES: BLE edema 2+. NEUROLOGIC: No focal neurological deficits. SKIN: Warm, dry. laboratory and microbiology Laboratory Tests 04/15/25 06:57 04/13/25 04:48 Test 04/15/25 06:57 Range/Units Serum Glucose 79 74-106 mg/dL Problem List Acute on chronic decompensated heart failure with elevated BNP, NYHA IV. Pulmonary vascular congestion on imaging and lactic acidosis. Troponin elevation likely secondary to demand ischemia rather than acute coronary syndrome given flat trend and absence of ischemic EKG changes. CAD s/p 4 JAMEL. Paroxysmal AFib, CHADS-VASc score 4, HAS-BLED score 2. ICD with LV lead fracture. Severe MR. Pulmonary hypertension. Polysubstance abuse. Homelessness. Transaminitis. RADHA on CKD 3B. Prognosis guarded given EF 5%, recurrent admissions, and ongoing psychosocial beer. Assessment/Plan Continued all current supportive medical care. Nitro SL. Aspirin Digoxin. Amiodarone. Morphine and [place] for pain management. Additional plan as per the hospital course. Plan discussed with: Patient CHAITANYA CULP MD Apr 15, 2025 14:45
[2025-04-15] MEDS: ALBUTEROL SULF 2.5 MG/0.5ML(0.5%) NEB SOLN NEB PRN (22:13)
[2025-04-15] MEDS: MAALOX PLUS or MAALOX 30 ML PO PRN (22:42)
[2025-04-16] VITALS (8 sets, daily range): BP systolic 101–115; BP diastolic 69–78; PULSE 62–66; RESP 16–18; TEMP 96.7–98; O2SAT 96–100
[2025-04-16] MEDS: POTASSIUM CHL 20 Meq TABLET PO ONE (12:06)
--- NOTE | 2025-04-16 12:58 | DVHDS2 ---
Discharge Summary Date of Admission Apr 12, 2025 at 00:12 Date of Discharge: Apr 16, 2025 Admitting Diagnosis Acute decompensated systolic heart failure Labs/Diagnostic Data: Laboratory Results Test 04/15/25 06:57 04/15/25 04:58 04/13/25 04:48 04/11/25 23:29 Sodium Level 132 mmol/L (136-145) Potassium Level 3.3 mmol/L (3.5-5.1) Chloride Level 92 mmol/L (98-107) Carbon Dioxide Level 30 mmol/L (20-31) Anion Gap 10 (5-15) Blood Urea Nitrogen 20 mg/dL (9-23) Creatinine 1.26 mg/dL (0.700-1.30) Glomerular Filtration Rate Calc 64 mL/min (>90) BUN/Creatinine Ratio 15.9 (10.0-20.0) Serum Glucose 79 mg/dL (74-106) Calcium Level 8.2 mg/dL (8.7-10.4) Total Bilirubin 10.8 mg/dL (0.2-1.0) Aspartate Amino Transferase (AST) 119 U/L (13-40) Alanine Aminotransferase (ALT) 70 U/L (7-40) Alkaline Phosphatase 203 U/L (46-116) Total Protein 5.5 g/dL (5.7-8.2) Albumin 3.1 g/dL (3.2-4.8) POC Glucose 103 mg/dl (70-106) White Blood Count 7.2 10^3/uL (4.4-10.8) Red Blood Count 4.04 10^6/uL (4.5-5.90) Hemoglobin 12.9 g/dL (13.5-17.5) Hematocrit 37.9 % (41.0-53.0) Mean Corpuscular Volume 93.8 fL (80.0-100.0) Mean Corpuscular Hemoglobin 32.0 pg (28.0-32.0) Mean Corpuscular Hemoglobin Concent 34.1 g/dL (32.0-36.0) Red Cell Distribution Width 20.9 % (11.8-14.3) Platelet Count 88 10^3/uL (140-450) Mean Platelet Volume 8.6 fL (6.9-10.8) Neutrophils (%) (Auto) 81.5 % (37.0-80.0) Lymphocytes (%) (Auto) 4.7 % (10.0-50.0) Monocytes (%) (Auto) 12.4 % (0.0-12.0) Eosinophils (%) (Auto) 1.3 % (0.0-7.0) Basophils (%) (Auto) 0.1 % (0.0-2.0) Neutrophils # (Auto) 5.8 10 ^3/uL (1.6-8.6) Lymphocytes # (Auto) 0.3 10 ^3/uL (0.4-5.4) Monocytes # (Auto) 0.9 10 ^3/uL (0-1.3) Eosinophils # (Auto) 0.1 10 ^3/uL (0-0.8) Basophils # (Auto) 0 10 ^3/uL (0-0.2) Nucleated Red Blood Cells 0.2 % Ammonia < 10 umol/L (11-32) Troponin I High Sensitivity 60 ng/L (</=54) Test 04/11/25 22:30 04/11/25 20:38 04/11/25 20:33 Lactic Acid Level 2.9 mmol/L (0.4-2.0) B-Type Natriuretic Peptide > 5000.00 pg/mL (0-100) Lipase 29 U/L (12-53) Plasma/Serum Blood Alcohol 3.2 mg/dL (<10) Urine Color Yellow (Yellow) Urine Clarity Clear (Clear) Urine pH 5.0 (5.0-9.0) Urine Specific Horace 1.006 (1.001-1.035) Urine Protein Negative (Negative) Urine Ketones Negative (Negative) Urine Blood Negative /uL (Negative) Urine Nitrite Negative (Negative) Urine Bilirubin Negative (Negative) Urine Urobilinogen Normal mg/dL (Negative) Urine Leukocyte Esterase Negative /uL (Negative) Urine RBC <1 /hpf (0 - 3) Urine Microscopic WBC < 1 /HPF (0-3) Urine Squamous Epithelial Cells None seen /hpf (<5) Urine Bacteria None seen /hpf (None Seen) Urine Hyaline Casts Few /lpf (0 - 2) Urine Glucose Normal mg/dL (Normal) Urine Opiates Screen Neg (NEGATIVE) Urine Fentanyl Screen Neg (NEGATIVE) Urine Barbiturates Screen Neg (NEGATIVE) Urine Phencyclidine Screen Neg (NEGATIVE) Urine Amphetamines Screen Neg (NEGATIVE) Urine Benzodiazepines Screen Neg (NEGATIVE) Urine Cocaine Screen Neg (NEGATIVE) Urine Cannabinoids Screen Pos (NEGATIVE) Other Laboratory Tests 04/15/25 06:57 04/13/25 04:48 Brief Hx & Hospital Course: History of Present Illness The patient is a 65-year-old male with multiple past medical history including AFib, Coronary artery disease, CHF, diabetes mellitus, hyperlipidemia, and PE who presented to [facility] ED with complaint of chest pain. Patient reports symptoms progressively get worse with generalized weakness, fatigue, and shortness of breaths. Patient was seen and evaluated in the ED, laboratory data shows WBC 7.5, platelets 123, sodium 121, potassium 5.1, BUN 55, creatinine 1.59, glucose 88, calcium 9.4, lactic acid 2.9 trending down, lipase 29, troponin 60, AST 193, ALT 87, alkaline phos 226, BNP > 5000, blood pressure 113/79, heart rate 86, temperature 97.6 F, O2 saturation 99% on oxygen. Chest x-ray revealing cardiomegaly with mild pulmonary vascular congestion. Patient was started on IV Lasix, please see medication orders section in the computer. On my assessment, patient denied chest pain at this moment, no dizziness, no headache, currently on oxygen, no diaphoresis, no diarrhea, no nausea, no vomiting, no fever, no chills. Patient was admitted for further evaluation and medical management. Course of hospitalization: Patient was started on guideline directed medical therapy, as well as aggressive IV diuresis. Long discussion was made with the patient as well as family regarding plan of care and frequent hospitalizations. After discussing patient's medical history with primary rattle leak and squeak repairer Dr. Villeda, it appears that the patient has had multiple referrals and denies for heart transplant. Also discussed case with patient's caregiver Briseida Padron who lives with the patient. Apparently the patient is noncompliant with his medications and fluid intake at home. Patient was requesting home oxygen. After being adherent with medications, diuresis, and cardiac diet patient's volume is now euvolemic. He is ambulating without any dyspnea. Patient was found to have an oxygen saturation of 96% on room air. Patient was offered hospice services if you would like to have oxygen at home. This was all to so discussed with Briseida padron, but she states that patient will come back to the hospital and not adhere to establish policies of a hospice. Patient is now stable to be discharged home. He will continue all previous home medication in his instructed to follow up with his rattle leak and squeak repairer, Dr. Villeda, as well as his PCP Dr. Ghosh. Patient verbalized understanding. All questions answered. Physical examination General: Alert and Oriented x3. No acute distress. Well-nourished. Eyes: EOMI. Anicteric. HENT: Moist mucous membranes. Lungs: Clear to auscultation bilaterally. No accessory muscle use. Cardiovascular: Regular rate and rhythm. No murmur. No JVD. Abdomen: Soft, non-tender and non-distended. No palpable masses. Extremities: No edema. Non-tender. Skin: No rashes or lesions. Warm. Neurologic: No focal neurological deficits. CN II-XII grossly intact, but not individually tested. Psychiatric: Cooperative. Appropriate mood and affect. Total time spent with patient discussing and formulating plan of care: 35 minutes. This medical document was created using an electronic medical record system with [employer] dictation system. Although this document has been carefully reviewed, there may still be some phonetic and typographical errors. These areas are purely typographical due to imperfections of the software programs, and do not reflect any compromise in the patient's medical care. Consults/Reason for consult Cardiology: Decompensated heart failure Condition at Discharge: Poor Final Diagnosis/Problems List Acute decompensated systolic and diastolic heart failure Secondary diagnosis: -cirrhosis -acute kidney injury, vasomotor nephropathy -hypervolemic hyponatremia -history of ICD placement -CAD with history of stent placement -NSTEMI type 2 secondary to volume overload Discharge Disposition: Home Discharge Instruct/Medications Diet: Cardiac 2g Na,low cholest Diet comment: Adhere to fluid restriction of 1200 mL per day Activity: No Restrictions, As Tolerated Follow Up/Referral: Follow up with PCP and rattle leak and squeak repairer in 1-2 weeks Medications: Continue all previous home medications Scheduled Amiodarone HCl (Amiodarone HCl), 1 TAB PO BID, (Reported) Aspirin (Aspirin Low Dose), 1 DAILY, (Reported) Bumetanide (Bumetanide), 1 TAB PO BID, (Reported) Carvedilol (Carvedilol), 1 TAB PO BID, (Reported) Cholecalciferol (Vitamin D3), 1 TAB PO DAILY, (Reported) Dapagliflozin Propanediol (Farxiga), 10 MG PO DAILY, (Reported) Digoxin (Digoxin), 1 TAB PO DAILY, (Reported) Famotidine (Pepcid Tablet), 1 TAB PO BID Ivabradine Hydrochloride (Corlanor), 1 TAB PO BID, (Reported) Midodrine HCl (Midodrine Hydrochloride), 2 TAB PO TID, (Reported) Nitroglycerin (Ntrostat Sublingual), 0.4 MG SL PRN, (Reported) Pantoprazole Sodium Sesquihydr (Pantoprazole Sodium), 1 TAB PO DAILY, (Reported) Potassium Chloride (Potassium Chloride ER), 20 MEQ PO DAILY Simvastatin (Simvastatin), 10 MG PO DAILY, (Reported) Spironolactone (Spironolactone), 1 TAB PO DAILY, (Reported) Vericiguat (Verquvo), 1 TAB PO DAILY, (Reported) Miscellaneous Medications Mexiletine HCl (Mexiletine Hydrochloride), 1, (Reported) 36 Discharge Statement: "Patient was advised to return to the ER or call 911 if any headaches, dizziness, shortness of breath, chest pain, abdominal pain, bleeding, fevers, or worsening of medical condition. Patient was counseled about treatment plan, medications, possible side effects, patientverbalized understanding. All questions were answered to the best of my ability. This discharge took greater then 30 minutes in planning, reviewing documentation, counseling the patient, and discussing with other team members." ASSESSMENT ASSESSMENT Assessment Acute decompensated systolic and diastolic heart failure Date of Service: Apr 16, 2025 Billing Provider: BRENDA FISHER NP Common Visit Codes: [id number] INP/OBS CARE(HIGH) BRENDA FISHER NP Apr 16, 2025 12:58
--- NOTE | 2025-04-16 23:44 | DVHPN2 ---
Progress Note - Dictate Date Seen: Apr 16, 2025 Medical Necessity Reason Pt with a Central, PICC or Fol: No Subjective Patient was seen and evaluated in follow up. Patient has no new complaints at this time. Patient denies any cardiac symptoms. Patient is cardiac stable for discharge. Telemetry reviewed. vital signs Vital Sign Date Time Temp Pulse Resp B/P (MAP) Pulse Ox O2 Delivery O2 Flow Rate FiO2 04/16/25 13:00 96.7 63 18 102/69 (80) 96 96.7 04/16/25 09:33 Nasal Cannula 2.0 04/16/25 09:33 28 Total Intake and Output 04/15/25 04/15/25 04/16/25 15:00 23:00 07:00 Intake Total 1200 ml 780 ml Output Total 900 ml 1050 ml Balance 300 ml -270 ml medications Current Medications Medications Dose Ordered Sig/Brian Route Start Time Stop Time Status Last Admin Dose Admin Aspirin 81 mg DAILY PO 04/12/25 10:00 04/16/25 09:50 81 MG Ibuprofen 600 mg Q6HP PRN PO 04/12/25 00:15 Famotidine 20 mg DAILY IV 04/12/25 10:00 04/16/25 09:50 20 MG Atorvastatin Calcium 10 mg HS PO 04/12/25 22:00 04/15/25 22:33 10 MG Sodium Chloride 10 ml Q8HR IV 04/12/25 06:00 04/16/25 06:21 10 ML Acetaminophen/ Hydrocodone Bitart 1 tab Q4HP PRN PO 04/12/25 00:15 Ondansetron HCl 4 mg Q4HP PRN IV 04/12/25 00:15 04/12/25 01:26 4 MG Docusate Sodium 100 mg BIDPRN PRN PO 04/12/25 00:15 Morphine Sulfate 2 mg Q4HPRN PRN IV 04/12/25 00:15 04/16/25 09:52 2 MG Nitroglycerin 0.4 mg Q5MINP PRN SL 04/12/25 00:15 Morphine Sulfate 2 mg Q30M PRN IV 04/12/25 00:15 04/14/25 05:36 2 MG Albuterol 2.5 mg Q4HPRN PRN NEB 04/12/25 06:00 04/15/25 22:13 2.5 MG Bumetanide 1 mg BIDD IV 04/12/25 18:00 04/16/25 06:36 1 MG Amiodarone HCl 200 mg BID PO 04/12/25 22:00 04/16/25 09:50 200 MG Digoxin 0.125 mg DAILY PO 04/13/25 10:00 04/16/25 09:51 0.125 MG Spironolactone 25 mg DAILY PO 04/13/25 10:00 04/16/25 09:50 25 MG Potassium Chloride 10 meq BID PO 04/12/25 22:00 04/16/25 09:51 10 MEQ Patient Own Medication 1 tab DAILY PO 04/13/25 10:00 Empaglifozin 10 mg DAILY PO 04/13/25 10:00 04/16/25 09:51 10 MG Carvedilol 3.125 mg BID PO 04/14/25 22:00 04/16/25 09:51 3.125 MG Al Hydrox/Mg Hydrox/Simethicone 30 ml Q8HP PRN PO 04/14/25 13:00 04/16/25 12:05 30 ML objective GENERAL: Alert and oriented x 3. No acute distress. EYES: PERRL, EOMI. Anicteric. HENT: Moist mucous membranes. LUNGS: Decreased breath sounds. CARDIOVASCULAR: Regular rate and rhythm. ABDOMEN: Soft, nontender and nondistended. EXTREMITIES: BLE edema 2+. NEUROLOGIC: No focal neurological deficits. SKIN: Warm, dry. laboratory and microbiology Laboratory Tests 04/15/25 06:57 04/13/25 04:48 Test 04/15/25 06:57 Range/Units Serum Glucose 79 74-106 mg/dL Problem List Acute on chronic decompensated heart failure with elevated BNP, NYHA IV. Pulmonary vascular congestion on imaging and lactic acidosis. Troponin elevation likely secondary to demand ischemia rather than acute coronary syndrome given flat trend and absence of ischemic EKG changes. CAD s/p 4 JAMEL. Paroxysmal AFib, CHADS-VASc score 4, HAS-BLED score 2. ICD with LV lead fracture. Severe MR. Pulmonary hypertension. Polysubstance abuse. Homelessness. Transaminitis. RADHA on CKD 3B. Prognosis guarded given EF 5%, recurrent admissions, and ongoing psychosocial beer. Assessment/Plan Continued all current supportive medical care. Nitro SL. Aspirin Digoxin. Coreg. Amiodarone. Morphine and [place] for pain management. Additional plan as per the hospital course. Plan discussed with: Patient CHAITANYA CULP MD Apr 16, 2025 13:20
--- NOTE | 2025-04-17 07:55 | ECG ---
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
== END 2025-04-16 18:30 | disposition home or self-care (01) | DRG 280 ==
LOC: ER 20:20 → OVERFLOW 04-12 00:12 → TELE-WESTW 04-14 00:56
PROVIDERS: ADMIT Nurse Practitioner Acute Care; ATTEND Nurse Practitioner Acute Care
DX: T82.110A Breakdown (mechanical) of cardiac electrode, initial encounter (principal); I50.43 Acute on chronic combined systolic (congestive) and diastolic (congestive) heart failure; I21.A1 Myocardial infarction type 2; N17.0 Acute kidney failure with tubular necrosis; I13.0 Hypertensive heart and chronic kidney disease with heart failure and stage 1 through stage 4 chronic kidney disease, or unspecified chronic kidney disease; E87.20 Acidosis, unspecified; Z59.00 Homelessness unspecified; E87.1 Hypo-osmolality and hyponatremia; I42.8 Other cardiomyopathies; D69.6 Thrombocytopenia, unspecified; I27.20 Pulmonary hypertension, unspecified; I48.0 Paroxysmal atrial fibrillation; F19.10 Other psychoactive substance abuse, uncomplicated; N18.32 Chronic kidney disease, stage 3b; E11.22 Type 2 diabetes mellitus with diabetic chronic kidney disease; I25.10 Atherosclerotic heart disease of native coronary artery without angina pectoris; K74.60 Unspecified cirrhosis of liver; I34.0 Nonrheumatic mitral (valve) insufficiency; E78.5 Hyperlipidemia, unspecified; Z91.013 Allergy to seafood; Z95.5 Presence of coronary angioplasty implant and graft; Z95.810 Presence of automatic (implantable) cardiac defibrillator; Z91.148 Patient's other noncompliance with medication regimen for other reason; Z87.891 Personal history of nicotine dependence; Z83.3 Family history of diabetes mellitus; Z82.49 Family history of ischemic heart disease and other diseases of the circulatory system; Z82.61 Family history of arthritis; Z82.3 Family history of stroke; Z80.8 Family history of malignant neoplasm of other organs or systems; Y71.2 Prosthetic and other implants, materials and accessory cardiovascular devices associated with adverse incidents
CPT/HCPCS: 36415; 71045; 80053; 80307; 80320; 81001; 82140; 82962; 83605; 83690; 83880; 84484; 85025; 93005; 94640; 96361; 96374; 96375; G0378; J2405; J3490

== ENCOUNTER 2025-04-19 16:53 | Inpatient (IN) | payer MEDICAID ==
[~2025-04-19] VITALS: Ht 182.9 cm; Wt 82.3 kg
[~2025-04-19 16:53] MED LIST changes: -ASPI-543 PO
[2025-04-19 17:15] VITALS: PULSE 83; RESP 16; O2SAT 99
--- NOTE | 2025-04-19 18:16 | ECG ---
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
[2025-04-19] MEDS: MORPHINE SULFATE 4 MG/ML SYR/VIAL IV ONE ×2 (18:24→21:52)
[2025-04-19] MEDS: ONDANSETRON HCL 4 MG/2 ML VIAL IV ONE ×2 (18:24→21:49)
[2025-04-19 18:25] LABS: Hematocrit 37.8 % (41.0-53.0); Hemoglobin 13.0 g/dL (13.5-17.5); Mean Corpuscular Hemoglobin 31.8 pg (28.0-32.0); Mean Corpuscular Volume 92.4 fL (80.0-100.0)
--- NOTE | 2025-04-19 18:31 | DVH ---
EXAM: XY CHEST PORTABLE HISTORY: chest pain TECHNIQUE: 1 view of the chest COMPARISON: XY CHEST PORTABLE on DOS: 04/11/25 FINDINGS/IMPRESSION: LUNGS: Peripheral interstitial edema. MEDIASTINUM: Moderate to severe cardiomegaly. Left anterior chest cardiac device. BONES: No acute osseous abnormality. OTHER: None.
--- NOTE | 2025-04-19 18:41 | ED.PDOC ---
History of Present Illness HPI Comments 65 y/o M presents with c/c of nonradiating, left sided chest pain and shortness of breath. Patient has a significant history for 3x lead AICD (1x operable), AFib, Angina, CAD, CHF, DM, HLD, HTN, PE, PTCA, and former tobacco cigarette user. He endorses on 3x day history of symptoms following initial, unprovoked and atraumatic onset. Patient also reports on noticing his lower legs swelling amidst compliancy with his medications. No reported modifiers. No endorsed prior ailments, sick contacts, travel, or further pertinent events or history. Denial of any nausea, vomiting, cough, fever, chills, or further associated symptoms. Chief Complaint: Chest Pain Time Seen by MD: 18:30 Primary Care Provider: GABRIELA Reviewed Notes: Nurses Notes, Medications, Allergies Allergies: Coded Allergies: Shellfish Allergy (Unverified Allergy, Severe, 09/11/23) CRAB Uncoded Allergies: CRAB (Allergy, Severe, 08/06/17) Home Meds Active Scripts Famotidine (PEPCID TABLET) 20 Mg Tb, 1 TAB PO BID for 30 Days, #60 TAB 0 Refills Prov:BRAIN LAI MD 03/07/25 Potassium Chloride (Potassium Chloride ER) 10 Meq Tab, 20 MEQ PO DAILY for 30 Days, #60 TAB Prov:MEME JAIME MD 04/30/24 Reported Medications Amiodarone HCl (Amiodarone HCl) 200 Mg Tab, 1 TAB PO BID for 30 Days, #60 03/25/25 Carvedilol (Carvedilol) 6.25 Mg Tab, 1 TAB PO BID for 30 Days, #60 03/25/25 Spironolactone (Spironolactone) 25 Mg Tab, 1 TAB PO DAILY for 90 Days, #90 03/25/25 Bumetanide (Bumetanide) 1 Mg Tab, 1 TAB PO BID for 90 Days, #180 03/25/25 Aspirin (Aspirin Low Dose) 81 Mg Tab, 1 DAILY 09/04/24 Mexiletine HCl (Mexiletine Hydrochloride) 150 Mg Cap, 1 09/04/24 Pantoprazole Sodium Sesquihydr (Pantoprazole Sodium) 40 Mg Tab, 1 TAB PO DAILY for 30 Days, #30 05/12/24 Simvastatin (Simvastatin) 10 Mg Tab, 10 MG PO DAILY, MG 05/12/24 Midodrine HCl (Midodrine Hydrochloride) 5 Mg Tab, 2 TAB PO TID, TAB 05/10/24 Cholecalciferol (VITAMIN D3) 2,000 Unit Tab, 1 TAB PO DAILY 01/09/24 Digoxin (Digoxin) 125 Mcg Tab, 1 TAB PO DAILY 01/09/24 Vericiguat (Verquvo) 10 Mg Tab, 1 TAB PO DAILY 01/09/24 Ivabradine Hydrochloride (Corlanor) 5 Mg Tab, 1 TAB PO BID for 30 Days, #60 08/16/23 Nitroglycerin (NTROSTAT SUBLINGUAL) 0.4 Mg Sl, 0.4 MG SL PRN, TAB *MAY REPEAT EVERY 5 MINUTES X 3 TOTAL IF NO RELIEF, INITIATE ANALGESIC THERAPY. NOTIFY PHYSICIAN *Do not crush. 05/15/23 Dapagliflozin Propanediol (Farxiga) 10 Mg Tab, 10 MG PO DAILY, TAB 05/15/23 Information Source: Patient Mode of Arrival: Wheelchair Severity: Moderate Timing: Days Duration: Since onset Prehospital treatment: None Past Medical History PAST MEDICAL HISTORY: AFIB, Angina, CAD, CHF, DM, High Lipids, HTN, PE Surgical History: Pacemaker, PTCA Family History Family History: Reviewed,noncontributory to illness, Family hx of DM, Family hx of heart bhavik, Family hx of HTN Social History Smoker: Quit Greater Than 1 Year, Cigarettes Alcohol: Sober Drugs: Denies Drug Use Lives In: Home All Other Systems: Reviewed and Negative (Comprehensive review of systems are negative unless stated in HPI) Physical Exam General Appearance: Mild Distress, Normal HEENT: Normal ENT Inspection, Pharynx Normal, TMs Normal Neck: Full Range of Motion, Non-Tender, Normal, Normal Inspection Respiratory: Chest Non-Tender, Lungs Clear, No Accessory Muscle Use, No Respiratory Distress, Normal Breath Sounds Cardiovascular: No Edema, No JVD, No Murmur, No Gallop, Normal Peripheral Pulses, Regular Rate/Rhythm Breast Exam: Deferred Gastrointestinal: No Organomegaly, Non Tender, No Pulsatile Mass, Normal Bowel Sounds, Soft Genitalia: Deferred Pelvic: Deferred Rectal: Deferred Extremities: Leg edema (2+ edema to BLE below the knees ), No calf tenderness, Normal capillary refill, Normal range of motion, Non-tender, Swelling (2+ edema to BLE below the knees ) Musculoskeletal : Apperance: Normal Neurologic: Alert, 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 Was a procedure done?: No EKG EKG : Pulse Rate (adult): 79 [place]: Normal Cardiac Rhythm: NSR Block: None Hypertrophy: None ST: Normal Differential Dx Considerations may include: Differential diagnosis includes but not limited to: Myocardial ischemia, cardiac arrhythmia, atrial fibrillation, ventricular tachycardia, pulmonary embolus, infectious etiology and others X-Ray, Labs, Meds, VS Vital Signs Date Time Temp Pulse Resp B/P (MAP) Pulse Ox O2 Delivery O2 Flow Rate FiO2 04/19/25 19:27 80 14 110/75 04/19/25 18:41 79 04/19/25 18:28 80 04/19/25 18:24 68 18 99/64 04/19/25 18:08 79 04/19/25 17:15 83 16 99 Room Air* 0 21 04/19/25 17:15 97.7 83 16 111/75 (87) 96 97.7 04/19/25 17:02 98.0 79 19 112/69 97 98.0 04/19/25 17:00 81 Lab Test 04/19/25 18:21 04/19/25 17:19 Range/Units Troponin I High Sensitivity 23 24 </=54 ng/L White Blood Count 4.4 # 4.4-10.8 10^3/uL Red Blood Count 4.08 L 4.5-5.90 10^6/uL Hemoglobin 13.0 L 13.5-17.5 g/dL Hematocrit 37.8 L 41.0-53.0 % Mean Corpuscular Volume 92.4 80.0-100.0 fL Mean Corpuscular Hemoglobin 31.8 28.0-32.0 pg Mean Corpuscular Hemoglobin Concent 34.4 32.0-36.0 g/dL Red Cell Distribution Width 22.3 H 11.8-14.3 % Platelet Count 141 # 140-450 10^3/uL Mean Platelet Volume 8.7 6.9-10.8 fL Neutrophils (%) (Auto) 37.0-80.0 % Lymphocytes (%) (Auto) 10.0-50.0 % Monocytes (%) (Auto) 0.0-12.0 % Basophils (%) (Auto) 0.0-2.0 % Neutrophils # (Auto) 1.6-8.6 10 ^3/uL Lymphocytes # (Auto) 0.4-5.4 10 ^3/uL Monocytes # (Auto) 0-1.3 10 ^3/uL Differential Total Cells Counted 100.0 100 Neutrophils % (Manual) 67 37.0-80.0 Band Neutrophils % (Manual) 0 Lymphocytes % (Manual) 13 10.0-50.0 Monocytes % (Manual) 18 H 0-12 Eosinophils % (Manual) 2 0-7 Basophils % (Manual) 0 0.0-2.0 Metamyelocytes % (manual) 0 Myelocytes % (Manual) 0 Promyelocytes % (Manual) 0 Blast Cells % (Manual) 0 Reactive Lymphocytes 0 Platelet Estimate Adequate Prothrombin Time 14.7 H 9.3-11.8 sec Prothrombin Time INR 1.44 H 0.9-1.15 Activated Partial Thromboplast Time 29.4 24.5-34.5 SEC Sodium Level 131 L 136-145 mmol/L Potassium Level 3.4 L 3.5-5.1 mmol/L Chloride Level 91 L 98-107 mmol/L Carbon Dioxide Level 32 H 20-31 mmol/L Anion Gap 8 5-15 Blood Urea Nitrogen 15 9-23 mg/dL Creatinine 1.05 0.700-1.30 mg/dL Glomerular Filtration Rate Calc 80 >90 mL/min BUN/Creatinine Ratio 14.3 10.0-20.0 Serum Glucose 102 74-106 mg/dL Calcium Level 8.5 L 8.7-10.4 mg/dL Total Bilirubin 8.7 H 0.2-1.0 mg/dL Aspartate Amino Transferase (AST) 74 H 13-40 U/L Alanine Aminotransferase (ALT) 59 H 7-40 U/L Alkaline Phosphatase 230 H 46-116 U/L Total Protein 6.1 5.7-8.2 g/dL Albumin 3.4 3.2-4.8 g/dL Current Medications Medications (Trade) Dose Ordered Sig/Brian Route Start Time Stop Time Status Last Admin Morphine Sulfate 4 mg ONCE ONCE IV 04/19/25 18:30 04/19/25 18:31 DC 04/19/25 18:24 Ondansetron HCl (Zofran) 4 mg ONCE ONCE IV 04/19/25 18:30 04/19/25 18:31 DC 04/19/25 18:24 Aspirin 162 mg ONCE ONCE PO 04/19/25 18:45 04/19/25 18:46 DC 04/19/25 18:48 [place] [id number] Ph: [phone] DIAGNOSTIC IMAGING Diagnostic Imaging Report : [id number] Signed PATIENT: SUHAIL VILLALTA ACCT: [id number] UNIT: [id number] : 1960 LOC: ER ROOM / BED: / AGE / SEX: 65 / M ADM STATUS: REG ER SERVICE 1800 ORDERING PHYSICIAN: BOB JACKSON MD PROCEDURE(s): CXRP - CHEST PORTABLE REASON: chest pain ORDER NUMBER(s): [id number], ACCESSION NUMBER(s): [id number] EXAM: XY CHEST PORTABLE HISTORY: chest pain TECHNIQUE: 1 view of the chest COMPARISON: XY CHEST PORTABLE on DOS: 04/11/25 FINDINGS/IMPRESSION: LUNGS: Peripheral interstitial edema. MEDIASTINUM: Moderate to severe cardiomegaly. Left anterior chest cardiac device. BONES: No acute osseous abnormality. OTHER: None. ATED BY: JOSE MIGUEL ZAMORA MD DICTATED DATE/TIME: 04/19/251827 SIGNED BY: JOSE MIGUEL ZAMORA MD SIGNED DATE/TIME: 04/19/251827 CC: Time of 1ST Reevaluation: 19:00 Reevaluation 1ST: Unchanged Patient Education/Counseling: Treatment Family Education/Counseling: No Family Present SEPSIS Sepsis Screen Date sepsis recognized/suspect: Apr 19, 2025 Time Sepsis recognized/suspect: 1718 Recent Procedure: No On Antibiotic Therapy: No Respiratory Rate >20: No Heart Rate >90: No Temp<36 C (96.8 F) or >38.3 C: No SBP <90 or MAP <65 mmHG: No New Acute Mental Status Change: No Is the patient on CPAP, BIPAP,: No Physician Orders Electrocardigram (04/19/25 18:07) Electrocardigram (04/19/25 20:07) Chest Portable (04/19/25 18:00) B-Type Natriuretic Peptide (04/19/25 20:02) NS (04/19/25 20:15) Potassium Er Tablet (Klor-Con Tablet) (04/19/25 20:15) Vital Signs Date Time Temp Pulse Resp B/P (MAP) Pulse Ox O2 Delivery O2 Flow Rate FiO2 04/19/25 19:27 80 14 110/75 04/19/25 18:41 79 04/19/25 18:28 80 04/19/25 18:24 68 18 99/64 04/19/25 18:08 79 04/19/25 17:15 83 16 99 Room Air* 0 21 04/19/25 17:15 97.7 83 16 111/75 (87) 96 97.7 04/19/25 17:02 98.0 79 19 112/69 97 98.0 04/19/25 17:00 81 Laboratory Tests Test 04/19/25 17:19 White Blood Count 4.4 10^3/uL (4.4-10.8) # Medications Medications Dose Ordered Sig/Brian Route Start Time Stop Time Status Last Admin Dose Admin Aspirin 162 mg ONCE ONCE PO 04/19/25 18:45 04/19/25 18:46 DC 04/19/25 18:48 Morphine Sulfate 4 mg ONCE ONCE IV 04/19/25 18:30 04/19/25 18:31 DC 04/19/25 18:24 Ondansetron HCl 4 mg ONCE ONCE IV 04/19/25 18:30 04/19/25 18:31 DC 04/19/25 18:24 Departure 1 Departure Time of Disposition: 20:04 Impression: Primary Impression: Acute coronary syndrome Additional Impression: [id number] kidney injury Disposition: ADMITTED INPATIENT Admit to: Tele Condition: Guarded Discharged With: Self Comments 65-year-old male with extensive cardiac history now with chest pain for last couple of days. On lab review his sodium is low 131, potassium borderline low at 3.4, chloride low at 91. Troponin initially normal 24. Patient was given aspirin. Patient was given IV fluids and potassium supplementation. Patient will need to be admitted for acute coronary syndrome. Critical Care Note Critical Care Time?: Yes (35 min-critical care time only) Critical care comment: Total critical care time: Approximately 36 minutes Due to a high probability of clinically significant, life threatening deterioration, the patient required my highest level of preparedness to intervene emergently and I personally spent this critical care time directly and personally managing the patient. This critical care time included obtaining a history; examining the patient; pulse oximetry; ordering and review of studies; arranging urgent treatment with development of a management plan; evaluation of patient's response to treatment; frequent reassessment; and, discussions with other providers. This critical care time was performed to assess and manage the high probability of imminent, life-threatening deterioration that could result in multi-organ failure. It was exclusive of separately billable procedures and treating other patients. Stability Stability form required: No Heart Score Heart Score: Heart Score Response (Comments) Value History Moderate Suspicious 1 EKG Normal 0 Age 45-64 1 Risk Factors >3 or Hx ASHD 2 Troponin Normal limit 0 Total 4 I personally scribed for BOB JACKSON MD ([email or web address]) on 04/19/25 at 18:41. Electronically submitted by Leonid Sylvester ([email or web address]). BOB JACKSON MD Apr 19, 2025 18:41
[2025-04-19 18:43] LABS: INR 1.44 (0.9-1.15); Partial Thromboplastin Time 29.4 SEC (24.5-34.5); Prothrombin Time 14.7 sec (9.3-11.8)
[2025-04-19 18:46] LABS: Albumin 3.4 g/dL (3.2-4.8); Anion Gap 8 (5-15); BUN/Creatinine Ratio 14.3 (10.0-20.0); Blood Urea Nitrogen 15 mg/dL (9-23); Glucose 102 mg/dL (74-106); Total Protein 6.1 g/dL (5.7-8.2)
[2025-04-19 18:56] LABS: Alanine Aminotransferase 59 U/L (7-40); Alkaline Phosphatase 230 U/L (46-116); Bilirubin, Total 8.7 mg/dL (0.2-1.0); Calcium 8.5 mg/dL (8.7-10.4); Carbon Dioxide 32 mmol/L (20-31); Chloride 91 mmol/L (98-107); Potassium 3.4 mmol/L (3.5-5.1); Sodium 131 mmol/L (136-145)
[2025-04-19 19:41] LABS: Total Cells Counted 100.0 (100)
[2025-04-19] MEDS: POTASSIUM CHL 20 Meq TABLET PO ONE (20:28)
[2025-04-19] MEDS: SODIUM CHLORIDE 0.9% 250 ML IV ONE (20:32)
[2025-04-19 20:55] LABS: Albumin 3.4 g/dL (3.2-4.8); Cholesterol 98.0 mg/dL (< 200); Magnesium 1.9 mg/dL (1.6-2.6); Total Protein 6.1 g/dL (5.7-8.2); Triglycerides 119.0 mg/dL (< 150)
[2025-04-19 21:48] LABS: Alanine Aminotransferase 59.0 U/L (7-40); Alkaline Phosphatase 229.0 U/L (46-116); Bilirubin, Direct 6.7 mg/dL (<0.3); Bilirubin, Total 8.7 mg/dL (0.2-1.0); HDL Cholesterol 6.0 mg/dL (40-59)
[2025-04-19 21:59] LABS: Lipase 138.0 U/L (12-53)
[2025-04-19] MEDS ORDERED: NITROGLYCERIN 0.4 MG SL TAB SL PRN (22:15)
[2025-04-19] MEDS ORDERED: MORPHINE SULFATE INJ 2 MG/ml SYRG IV PRN ×2 (22:15)
[2025-04-19] MEDS ORDERED: CARVEDILOL 12.5 MG TAB PO ONE (22:15)
[2025-04-19] MEDS ORDERED: ENOXAPARIN SOD 40 MG/0.4 ML SYRINGE SC SCH (22:15)
--- NOTE | 2025-04-19 22:31 | DVHHPRES ---
History of Present Illness Resident Creating Document: KUNAL FAULKNER RESIDENT History of Present Illness This is a 65-year-old male with past medical history of non-ischemic cardiomyopathy (last [facility] 2021, etiology probable polysubstance abuse), HFrEF with EF 6% s/p FLEXO OPERATOR-D with broken leads, pulmonary embolism, liver cirrhosis, hypertension, presented to the ER with chief complain of chest pain. Patient provided poor history secondary to discomfort. He reports pain started suddenly 2 days ago, located in the substernal area, unable to clearly describe the pain, nonradiating, rating 10/10. Associated with nausea, difficulty in breathing. He also complains of lower extremity swelling and numbness since 1 month. Wears compression stocking to help with swelling. Uses walker for ambulation. Denies fever, chills, vomiting. PMHx: Non-ischemic cardiomyopathy (last [facility] 2021, etiology probable polysubstance abuse), HFrEF with EF 6% s/p FLEXO OPERATOR-D with broken leads, DVT, pulmonary embolism, liver cirrhosis, hypertension, Past surgical history: 09/2021 left heart catheterization with non obstructive coronary arteries Social history: Denies smoking, alcohol, recreational drug use (per EMR, has history of polysubstance abuse). Full code. Next to jessica Gardner (cousin) Home medication: pantoprazole, bumetanide, spironolactone, hydrocortisone, carvedilol, amiodarone, bumetanide, midodrine, ivabradine, verquo, aspirin, NTG Allergic history: crab, shellfish Patient was examined at bedside today. Patient is hemodynamically stable. He was in visible discomfort. He is admitted for further evaluation and management. Review of Systems Respiratory: Shortness of breath Cardiovascular: Chest Pain Gastrointestinal: Nausea Allergies: Coded Allergies: Shellfish Allergy (Unverified Allergy, Severe, 09/11/23) CRAB Uncoded Allergies: CRAB (Allergy, Severe, 08/06/17) Exam Vital Signs Vital Signs Date Time Temp Pulse Resp B/P (MAP) Pulse Ox O2 Delivery O2 Flow Rate FiO2 04/19/25 20:10 78 04/19/25 19:27 14 110/75 04/19/25 17:15 99 Room Air* 0 21 04/19/25 17:15 97.7 97.7 Exam General: Patient is in visible distress due to pain. Patient not following commands due to chest pain. Patient alert and oriented in person, place and time. HEENT: Normocephalic, atraumatic, dry mucous membranes Respiratory/pulmonary: Bibasilar rales, rest of lung auscultation limited by not following commands Cardiovascular: Distant heart sounds Abdomen: Distended abdomen, reports discomfort on palpation. Extremities: Grade 4 bilateral infrapatellar pitting edema Skin: Multiple rash history 2 pruritus. Left thigh wound healing with scabbing Neurologic exam: Normal sensory, motor strength. Labs/Xrays Labs Test 04/19/25 18:21 04/19/25 17:19 Range/Units Serum Osmolality 291 278-298 mOsm/kg Troponin I High Sensitivity 23 </=54 ng/L Thyroid Stimulating Hormone (TSH) 2.99 0.55-4.78 uIU/mL White Blood Count 4.4 # 4.4-10.8 10^3/uL Red Blood Count 4.08 L 4.5-5.90 10^6/uL Hemoglobin 13.0 L 13.5-17.5 g/dL Hematocrit 37.8 L 41.0-53.0 % Mean Corpuscular Volume 92.4 80.0-100.0 fL Mean Corpuscular Hemoglobin 31.8 28.0-32.0 pg Mean Corpuscular Hemoglobin Concent 34.4 32.0-36.0 g/dL Red Cell Distribution Width 22.3 H 11.8-14.3 % Platelet Count 141 # 140-450 10^3/uL Mean Platelet Volume 8.7 6.9-10.8 fL Neutrophils (%) (Auto) 37.0-80.0 % Lymphocytes (%) (Auto) 10.0-50.0 % Monocytes (%) (Auto) 0.0-12.0 % Basophils (%) (Auto) 0.0-2.0 % Neutrophils # (Auto) 1.6-8.6 10 ^3/uL Lymphocytes # (Auto) 0.4-5.4 10 ^3/uL Monocytes # (Auto) 0-1.3 10 ^3/uL Differential Total Cells Counted 100.0 100 Neutrophils % (Manual) 67 37.0-80.0 Band Neutrophils % (Manual) 0 Lymphocytes % (Manual) 13 10.0-50.0 Monocytes % (Manual) 18 H 0-12 Eosinophils % (Manual) 2 0-7 Basophils % (Manual) 0 0.0-2.0 Metamyelocytes % (manual) 0 Myelocytes % (Manual) 0 Promyelocytes % (Manual) 0 Blast Cells % (Manual) 0 Reactive Lymphocytes 0 Platelet Estimate Adequate Prothrombin Time 14.7 H 9.3-11.8 sec Prothrombin Time INR 1.44 H 0.9-1.15 Activated Partial Thromboplast Time 29.4 24.5-34.5 SEC Sodium Level 131 L 136-145 mmol/L Potassium Level 3.4 L 3.5-5.1 mmol/L Chloride Level 91 L 98-107 mmol/L Carbon Dioxide Level 32 H 20-31 mmol/L Anion Gap 8 5-15 Blood Urea Nitrogen 15 9-23 mg/dL Creatinine 1.05 0.700-1.30 mg/dL Glomerular Filtration Rate Calc 80 >90 mL/min BUN/Creatinine Ratio 14.3 10.0-20.0 Serum Glucose 102 74-106 mg/dL Hemoglobin A1c 5.6 <5.7 % A1C Calcium Level 8.5 L 8.7-10.4 mg/dL Phosphorus Level 1.9 L 2.4-5.1 mg/dL Magnesium Level 1.9 1.6-2.6 mg/dL Total Bilirubin 8.7 H 0.2-1.0 mg/dL Direct Bilirubin 6.7 H <0.3 mg/dL Aspartate Amino Transferase (AST) 75 H 13-40 U/L Alanine Aminotransferase (ALT) 59 H 7-40 U/L Alkaline Phosphatase 229 H 46-116 U/L C-Reactive Protein High Sensitivity 2.71 H <1.0 mg/dL B-Type Natriuretic Peptide 3007.48 0-100 pg/mL Total Protein 6.1 5.7-8.2 g/dL Albumin 3.4 3.2-4.8 g/dL Triglycerides Level 119 < 150 mg/dL Cholesterol Level 98 < 200 mg/dL LDL Cholesterol 75 < 100 mg/dL HDL Cholesterol 6 L 40-59 mg/dL Lipase 138 H 12-53 U/L SEPSIS Sepsis Screen Date sepsis recognized/suspect: Apr 19, 2025 Time Sepsis recognized/suspect: 1718 Recent Procedure: No On Antibiotic Therapy: No Respiratory Rate >20: No Heart Rate >90: No Temp<36 C (96.8 F) or >38.3 C: No SBP <90 or MAP <65 mmHG: No New Acute Mental Status Change: No Is the patient on CPAP, BIPAP,: No Physician Orders Electrocardigram (04/19/25 18:07) Electrocardigram (04/19/25 20:07) Chest Portable (04/19/25 18:00) Acute Hepatitis Panel (04/19/25 20:29) Drug Screen (04/19/25 20:29) Thyroid Stimulating Hormone (04/19/25 20:29) Urinalysis (04/19/25 20:29) Vitamin B12 (04/19/25 20:29) Vitamin D, 25-Hydroxy (04/19/25 20:29) Stool Occult Blood (04/19/25 22:04) Admit (04/19/25 22:04) Allergies (04/19/25 22:04) Code Status (04/19/25 22:04) Ondansetron Hcl (Zofran) (04/19/25 22:15) Complete Blood Count (04/20/25 04:00) Comprehensive Metabolic Panel (04/20/25 04:00) Cardiac Diet-2gna,Lofat,Lochol (04/20/25 Breakfast) Condition: Serious (04/19/25 22:04) Acetaminophen Tablet (Tylenol Tablet) (04/19/25 22:15) Morphine Sulfate Injection (04/19/25 22:15) Enoxaparin Sodium (Lovenox) (04/19/25 22:15) Nitroglycerin Sublingual (Ntrostat Subli (04/19/25 22:15) Morphine Sulfate Injection (04/19/25 22:15) Oxygen By Nasal Cannula (04/19/25 22:04) Stat Ekg For Chest Pain (04/19/25 22:04) Notify Md Of Changes From Base (04/19/25 22:04) Public Health Nutritionist For 24 Hours (04/19/25 22:04) Emergency Dysrhythmia Protocol (04/19/25 22:04) Rhythm Strips Once Every Shift (04/19/25 22:04) Pantoprazole Tablet (Protonix Tablet) (04/19/25 22:15) Pantoprazole Tablet (Protonix Tablet) (04/20/25 06:00) Spironolactone (Aldactone) (04/19/25 22:15) Spironolactone (Aldactone) (04/20/25 10:00) Carvedilol Tablet (Coreg Tablet) (04/19/25 22:15) Carvedilol Tablet (Coreg Tablet) (04/20/25 10:00) Ivabradine (Corlanor) (04/20/25 10:00) Aspirin Tablet (04/19/25 22:15) Aspirin Tablet (04/20/25 10:00) Vital Signs Date Time Temp Pulse Resp B/P (MAP) Pulse Ox O2 Delivery O2 Flow Rate FiO2 04/19/25 20:10 78 04/19/25 19:27 80 14 110/75 04/19/25 18:41 79 04/19/25 18:28 80 04/19/25 18:24 68 18 99/64 04/19/25 18:08 79 04/19/25 17:15 83 16 99 Room Air* 0 21 04/19/25 17:15 97.7 83 16 111/75 (87) 96 97.7 04/19/25 17:02 98.0 79 19 112/69 97 98.0 04/19/25 17:00 81 Laboratory Tests Test 04/19/25 17:19 White Blood Count 4.4 10^3/uL (4.4-10.8) # Medications Medications Dose Ordered Sig/Brian Route Start Time Stop Time Status Last Admin Dose Admin Aspirin 162 mg ONCE ONCE PO 04/19/25 18:45 04/19/25 18:46 DC 04/19/25 18:48 162 MG Morphine Sulfate 4 mg ONCE ONCE IV 04/19/25 18:30 04/19/25 18:31 DC 04/19/25 18:24 4 MG Ondansetron HCl 4 mg ONCE ONCE IV 04/19/25 18:30 04/19/25 18:31 DC 04/19/25 18:24 4 MG Potassium Chloride 20 meq ONCE ONCE PO 04/19/25 20:15 04/19/25 20:28 DC 04/19/25 20:28 20 MEQ Sodium Chloride 250 ml @ 1,000 mls/hr Q15M ONCE IV 04/19/25 20:15 04/19/25 20:29 DC 04/19/25 20:32 1,000 MLS/HR Assessment/Plan Assessment/Plan Acute on chronic respiratory failure Acute exacerbation chronic systolic heart failure HFrEF with LVEF 6% - status post FLEXO OPERATOR-D placement Nonischemic cardiomyopathy (probably secondary to history of polysubstance abuse) Severe MR Pacemaker in right cardiac chambers Rule out acute coronary syndrome and aortic dissection CXR shows peripheral interstitial edema, cardiomegaly Troponins negative EKG shows sinus rhythm, prolonged AR, nonspecific IVCD with LAD, LVH BNP 3007 Ordered ABG Patient is allergic to shellfish, can not complete angio CT, echo ordered. If continue to suspect dissection, can perform ultrasound of abdominal aorta Furosemide 40 mg IV b.i.d. Strict I&O Continue GDMT with spironolactone, carvedilol, ivabradine Suggest device interrogation. Patient has history of broken leads. Consider cardiological evaluation to optimize severe MR and cardiac device leads. Hyponatremia Hypokalemia Hypocalcemia Supplemented, continue monitoring BMP Transaminitis Hyperbilirubinemia Liver cirrhosis Elevated bilirubin, AST, ALT, ALP Ordered abdomen ultrasound Monocytosis Monitor CBC Pulmonary hypertension (RVSP 58 mmHg) Rule out DVT/PE Ordered lower extremity ultrasound, CT angio, radiation technician canceled ordered due to allergy to shellfish. Ordered V/Q scan Currently on therapeutic enoxaparin Hyperlipidemia Continue atorvastatin 10 mg daily History of polysubstance abuse Per patient he has no history polysubstance abuse, per EMR he has history of polysubstance abuse which is the etiology of his nonischemic cardiomyopathy. Counseled for over 16 minutes on continuing cessation of substance abuse DIET: Cardiac DVT PROPHYLAXIS: Lovenox GI PROPHYLAXIS: Protonix CODE STATUS: Goals of care discussed with patient at bedside for more than 37 minutes. Full code DISPOSITION: Telemetry Patient's status and plan discussed with the patient. Case discussed with Dr. Gunn Plan discussed with: Patient, Other (Nurses) My Orders Orders - KUNAL FAULKNER RESIDENT Procedure Category Date Status Time Acute Hepatitis Panel LAB 04/19/25 In Process 20:29 Drug Screen LAB 04/19/25 Logged 20:29 Thyroid Stimulating LAB 04/19/25 In Process Hormone 20: Urinalysis LAB 04/19/25 Logged 20:29 Vitamin B12 LAB 04/19/25 In Process 20:29 Vitamin D, 25-Hydroxy LAB 04/19/25 In Process 20:29 Stool Occult Blood LAB 04/19/25 Logged 22:04 Admit ADMIT 04/19/25 Transmitted 22:[address] [facility] 04/19/25 In Process 22:04 Code Status CODE 04/19/25 Transmitted 22:04 Ondansetron Hcl PHA 04/19/25 Logged (Zofran) 22:15 Complete Blood Count LAB 04/20/25 Verified 04:00 Comprehensive LAB 04/20/25 Verified Metabolic Panel 04:00 Cardiac DIET 04/20/25 Transmitted Diet-2gna,Lofat,Lochol Breakfast Condition: Serious JIMMIE 04/19/25 In Process 22:04 Acetaminophen Tablet [facility] 04/19/25 Logged (Tylenol Tablet) 22:15 Morphine Sulfate [facility] 04/19/25 Logged Injection 22:15 Enoxaparin Sodium PHA 04/19/25 Logged (Lovenox) 22:15 Nitroglycerin [facility] 04/19/25 Logged Sublingual (Ntrostat 22:15 Morphine Sulfate [facility] 04/19/25 Logged Injection 22:15 Oxygen By Nasal RT 04/19/25 Transmitted Cannula 22:04 Stat Ekg For Chest [facility] 04/19/25 In Process Pain 22:04 Notify Of Changes [facility] 04/19/25 In Process From Base 22:04 Public Health Nutritionist For [facility] 04/19/25 In Process 24 Hours 22:04 Emergency Dysrhythmia [facility] 04/19/25 In Process Protocol 22:04 Rhythm Strips Once [facility] 04/19/25 In Process Every Shift 22:04 Pantoprazole Tablet [facility] 04/19/25 Logged (Protonix Tablet) 22:15 Pantoprazole Tablet [facility] 04/20/25 Logged (Protonix Tablet) 06:00 Spironolactone [facility] 04/19/25 Logged (Aldactone) 22:15 Spironolactone [facility] 04/20/25 Logged (Aldactone) 10:00 Carvedilol Tablet [facility] 04/19/25 Logged (Coreg Tablet) 22:15 Carvedilol Tablet [facility] 04/20/25 Logged (Coreg Tablet) 10:00 Ivabradine (Corlanor) [facility] 04/20/25 Transmitted 10:00 Aspirin Tablet [facility] 04/19/25 Transmitted 22:15 Aspirin Tablet [facility] 04/20/25 Transmitted 10:00 Date of Service: Apr 19, 2025 Billing Provider: BRAIN LAI MD Common Visit Codes: [id number] INP/OBS CARE (HIGH) Secondary Visit Codes: [id number] CARE PLAN 30 MINUTES KUNAL FAULKNER RESIDENT Apr 19, 2025 22:31 ESTEVAN BRAN RESIDENT Apr 20, 2025 04:25
[2025-04-19] MEDS: ENOXAPARIN SOD 40 MG/0.4 ML SYRINGE SC ONE (23:14)
[2025-04-19] MEDS: SPIRONOLACTONE 25 MG TAB PO ONE (23:17)
[2025-04-19] MEDS: PANTOPRAZOLE 40 MG TAB PO ONE (23:17)
[2025-04-19] MEDS: CARVEDILOL 3.125 MG TAB PO ONE (23:18)
[2025-04-19] MEDS: ATORVASTATIN 20 MG TAB PO ONE (23:18)
[2025-04-19 23:34] VITALS: BP 120/81; PULSE 78; RESP 12; O2SAT 91
[2025-04-20] VITALS (7 sets, daily range): BP systolic 99–115; BP diastolic 69–76; PULSE 64–90; RESP 12–18; TEMP 97.4–97.8; O2SAT 90–100
[2025-04-20] MEDS: IOHEXOL 350 MG/ML 100ML IJ ONE (00:48)
[2025-04-20 01:40] LABS: Urine Protein, UAD TRACE (Negative)
[2025-04-20 01:43] LABS: Amphetamine Screen, Urine Neg (NEGATIVE)
[2025-04-20 01:48] LABS: Barbiturate Scree,Urine Neg (NEGATIVE); Benzodiazephine Screen, Urine Neg (NEGATIVE); Cannabinoid Screen, Urine Pos (NEGATIVE); Cocaine Screen, Urine Neg (NEGATIVE); Opiate Scree,Urine Pos (NEGATIVE); Phencyclidine Screen, Urine Neg (NEGATIVE)
[2025-04-20] MEDS: FUROSEMIDE 40 MG/4 ML VIAL IV ONE ×2 (02:47→03:45)
[2025-04-20 04:47] LABS: Hematocrit 37.2 % (41.0-53.0); Hemoglobin 13.1 g/dL (13.5-17.5); Mean Corpuscular Hemoglobin 32.3 pg (28.0-32.0); Mean Corpuscular Volume 92.2 fL (80.0-100.0); Nucleated Red Blood Cells % 0.7 %
[2025-04-20 05:00] LABS: Albumin 3.3 g/dL (3.2-4.8); Anion Gap 8 (5-15); BUN/Creatinine Ratio 15.1 (10.0-20.0); Blood Urea Nitrogen 14 mg/dL (9-23); Carbon Dioxide 29 mmol/L (20-31); Glucose 83 mg/dL (74-106); Potassium 4.3 mmol/L (3.5-5.1); Total Protein 5.9 g/dL (5.7-8.2)
[2025-04-20 05:05] LABS: Alanine Aminotransferase 54 U/L (7-40); Alkaline Phosphatase 208 U/L (46-116); Bilirubin, Total 8.1 mg/dL (0.2-1.0); Calcium 8.3 mg/dL (8.7-10.4); Chloride 93 mmol/L (98-107); Sodium 130 mmol/L (136-145)
[2025-04-20 05:14] LABS: Base Excess 5.0 mmol/L (-2.0-3.0)
[2025-04-20] MEDS: PANTOPRAZOLE 40 MG TAB PO SCH (05:46)
[2025-04-20] MEDS: ENOXAPARIN SOD 100 MG/1 ML SYRINGE SC SCH (06:00)
[2025-04-20] MEDS: FUROSEMIDE 40 MG/4 ML VIAL IV SCH (06:00)
[2025-04-20] MEDS ORDERED: FUROSEMIDE 40 MG/4 ML VIAL IV SCH ×3 (06:00→10:00)
--- NOTE | 2025-04-20 07:58 | DVH ---
INDICATION: Elevated bilirubin TECHNIQUE: Multiple real-time sonographic images of the abdomen were obtained. COMPARISON: US ABDOMEN LIMITED on DOS: 04/06/25, US ABDOMEN LIMITED on DOS: 03/25/25, US GALLBLADDER on DOS: 03/20/25, US LIVER on DOS: 03/06/25, US GALLBLADDER on DOS: 02/06/24 FINDINGS: The liver is homogenous in echogenicity. The liver measures 16cm. No intrahepatic biliary ductal dilatation is noted. The gallbladder wall measures 0.5 cm and is thickened. No gallstones or sludge is seen. The common d uct measures 0.4 cm and is unremarkable. No pericholecystic fluid is noted. The right kidney measures 12cm. No hydronephrosis. The pancreas is not well visualized due to obscuration from bowel gas. The visualized portions of the IVC and aorta are grossly unremarkable. IMPRESSION: Thickening of the gallbladder wall with pericholecystic fluid.
--- NOTE | 2025-04-20 08:02 | DVH ---
US BiLat Lower DVT HISTORY: Bilateral lower limb swelling COMPARISON: US BILAT LOWER DVT on DOS: 01/08/24 TECHNIQUE: Duplex doppler evaluation of the deep venous system of the lower extremity from the common femoral veins, superficial femoral vein, great saphenous vein, deep femoral vein, popliteal vein, an d calf veins, including color doppler and spectral/pulsed waveform analysis, was performed. FINDINGS: Right: - Common femoral vein: Compressible - Deep femoral vein: Compressible - Femoral vein: Compressible - Popliteal vein: Compressible - Posterior tibial vein: Waveforms present - Other: Nothing Left: - Common femoral vein: Compressible - Deep femoral vein: Compressible - Femoral vein: Compressible - Popliteal vein: Compressible - Posterior tibial vein: Waveforms present - Other: Nothing IMPRESSION: No right or left lower extremity deep venous thrombosis.
[2025-04-20] MEDS: ACETAMINOPHEN 325 MG TAB PO PRN (08:13)
[2025-04-20 08:23] LABS: COVID19 ANTIGEN SOFIA FIA NEGATIVE (NEGATIVE)
[2025-04-20] MEDS: POTASSIUM PHOSPHATE 22 MEQ in SODIUM CHL 0.9% 100 ML IV ONE (08:24)
[2025-04-20] MEDS: Dapagliflozin Propanediol (Farxiga) 10 MG TABLET PO SCH (10:00)
[2025-04-20] MEDS ORDERED: IVABRADINE 5 MG TAB PO SCH (10:00)
[2025-04-20] MEDS ORDERED: CARVEDILOL 3.125 MG TAB PO SCH ×2 (10:00→22:00)
[2025-04-20] MEDS ORDERED: CARVEDILOL 12.5 MG TAB PO SCH (10:00)
[2025-04-20] MEDS: FUROSEMIDE 20 MG/2 ML VIAL IV ONE ×2 (10:15→18:54)
[2025-04-20 10:28] LABS: Hepatitis B Surface Antigen Negative (Negative); Hepatitis C Antibody Negative (Negative)
[2025-04-20] MEDS: AMIODARONE HCL 200 MG TAB PO SCH (11:19)
[2025-04-20] MEDS: IVABRADINE 5 MG TAB PO SCH (11:20)
[2025-04-20] MEDS: SPIRONOLACTONE 25 MG TAB PO SCH (11:21)
--- NOTE | 2025-04-20 12:27 | DVHPNRES ---
Progress Note Date Seen: Apr 20, 2025 Resident Creating Document: ANTOINE CATALAN Medical Necessity Reason Pt with a Central, PICC or Fol: No Subjective Review of Systems Patient is a 65-year-old male with past medical history of non-ischemic cardiomyopathy (last [facility] 2021, etiology probable polysubstance abuse), HFrEF with EF 6% s/p ROCK LATHER-D with broken leads, pulmonary embolism, liver cirrhosis, hypertension, presented to [facility] ED with complaint of chest pain. Patient provided poor history secondary to discomfort. The patient reported that the pain began suddenly two days ago, is substernal, non- radiating, rated 10/10 in severity, and associated with nausea and difficulty breathing. He also reported swelling and numbness in the lower extremities for the past month and uses compression stockings and a walker for ambulation. He denied fever, chills, vomiting, and other systemic symptoms. The patient stated he living in a [facility]. He reported not being interested in hospice service at this time Past medical history: Non-ischemic cardiomyopathy (last [facility] 2021, etiology probable polysubstance abuse), HFrEF with EF 6% s/p ROCK LATHER-D with broken leads, DVT, pulmonary embolism, liver cirrhosis, hypertension, Past surgical history: 09/2021 left heart catheterization with non obstructive coronary arteries Home medications: pantoprazole, bumetanide, spironolactone, hydrocortisone, carvedilol, amiodarone, bumetanide, midodrine, ivabradine, verquo, aspirin, NTG Past Hospitalization: Social & Personal history: Denies smoking, alcohol, recreational drug use (per EMR, has history of polysubstance abuse) Allergies: crab, shellfish Patient seen and examined at bedside. Patient is alert and oriented to time, place person and responding to all questions. Eyes: No Pain, No Vision change, No Conjunctivae inflammation, No Eyelid inflammation, No Other, No Redness ENT: No Ear pain, No Ear discharge, No Nose pain, No Nose discharge, No Nose congestion, No Mouth pain, No Mouth swelling, No Throat pain, No Throat swelling, No Other Cardiovascular: Chest Pain, No Palpitations, No Orthopnea, No Paroxysmal No Dyspnea, No Edema, No Lt Headedness, No Other Respiratory: Shortness of breath. No Cough, No Dry, No SOB with exertion, No Wheezing, No Hemoptysis, No Pleuritic Pain, No Sputum, No Other Gastrointestinal: Nausea, No Vomiting, No Abdominal Pain, No Diarrhea, No Constipation, No Melena, No Hematochezia, No Other Genitourinary: No Dysuria, No Frequency, No Incontinence, No Hematuria, No Retention, No Other Musculoskeletal: No other, No neck pain, No shoulder pain, No arm pain, No back pain, No hand pain, No leg pain, No foot pain Skin: No Rash, No Lesions, No Jaundice, No Bruising, No Other Objective vital signs Vital Sign Date Time Temp Pulse Resp B/P (MAP) Pulse Ox O2 Delivery O2 Flow Rate FiO2 04/20/25 11:20 61 14 93/48 (63) 96 04/20/25 07:20 98.1 98.1 04/20/25 07:20 Room Air* 2 N/A Nasal Cannula* Total Intake and Output 04/19/25 04/19/25 04/20/25 15:00 23:00 07:00 Intake Total 250 ml 118 ml Output Total 2560 ml Balance 250 ml -2442 ml medications Current Medications Medications Dose Ordered Sig/Brian Route Start Time Stop Time Status Last Admin Dose Admin Ondansetron HCl 4 mg Q4HP PRN IV 04/19/25 22:15 Acetaminophen 650 mg Q6HP PRN PO 04/19/25 22:15 04/20/25 08:13 650 MG Morphine Sulfate 2 mg Q4HPRN PRN IV 04/19/25 22:15 Nitroglycerin 0.4 mg Q5MINP PRN SL 04/19/25 22:15 Morphine Sulfate 2 mg Q30M PRN IV 04/19/25 22:15 Pantoprazole Sodium 40 mg DAILY@0600 PO 04/20/25 06:00 04/20/25 05:46 40 MG Spironolactone 25 mg DAILY PO 04/20/25 10:00 04/20/25 11:21 25 MG Aspirin 81 mg DAILY PO 04/20/25 10:00 04/20/25 11:21 81 MG Atorvastatin Calcium 10 mg HS PO 04/20/25 22:00 Ivabradine 5 mg BID PO 04/20/25 10:00 04/20/25 11:20 5 MG Amiodarone HCl 200 mg BID PO 04/20/25 10:00 04/20/25 11:19 200 MG Enoxaparin Sodium 90 mg Q12HR SC 04/20/25 06:00 Carvedilol 3.125 mg Q12HR PO 04/20/25 22:00 Furosemide 20 mg DAILY IV 04/21/25 10:00 Examination General: Patient is in visible distress due to pain. Patient not following commands due to chest pain. Patient alert and oriented in person, place and time. HEENT: Normocephalic, atraumatic, dry mucous membranes Respiratory/pulmonary: Bibasilar rales, rest of lung auscultation limited by not following commands Cardiovascular: Distant heart sounds Abdomen: Distended abdomen, reports discomfort on palpation. Extremities: Grade 1 bilateral infrapatellar pitting edema Skin: Multiple rash history 2 pruritus. Left thigh wound healing with scabbing Neurologic exam: Normal sensory, motor strength. laboratory and microbiology Laboratory Tests 04/20/25 04:13 Test 04/20/25 04:13 Range/Units Serum Glucose 83 74-106 mg/dL Labs and/or images reviewed: Labs reviewed by me, Image(s) reviewed by me Problem List/Assessment/Plan Problem List/Assessment/Plan Assessment/Plan Acute exacerbation chronic systolic heart failure HFrEF with LVEF 6% - status post ROCK LATHER-D placement Acute on chronic respiratory failure Nonischemic cardiomyopathy (probably secondary to history of polysubstance abuse) Severe MR Pacemaker in right cardiac chambers Rule out acute coronary syndrome and aortic dissection CXR shows peripheral interstitial edema, cardiomegaly Troponins negative EKG shows sinus rhythm, prolonged IN, nonspecific IVCD with LAD, LVH BNP 3007 Ordered ABG Patient is allergic to shellfish, can not complete angio CT, echo ordered. If continue to suspect dissection, can perform ultrasound of abdominal aorta Amiodarone 200 mg Carvedilol 3.2135 mg Furosemide 20mg Ivabradine 5 mg Spironolactone 25 mg Nitroglycerin 0.4 mg Strict I&O Continue GDMT with spironolactone, carvedilol, ivabradine Suggest device interrogation. Patient has history of broken leads. Consider cardiological evaluation to optimize severe MR and cardiac device leads. Hyponatremia Hypokalemia Hypocalcemia Supplemented, continue monitoring BMP Transaminitis Hyperbilirubinemia Liver cirrhosis Elevated bilirubin, AST, ALT, ALP Ordered abdomen ultrasound Liver US: Thickening of the gallbladder wall with pericholecystic fluid. Monocytosis Monitor CBC Pulmonary hypertension (RVSP 58 mmHg) Ruled out DVT/PE Ordered lower extremity ultrasound, CT angio, debug technician canceled ordered due to allergy to shellfish. Extremity Venous Study: No right or left lower extremity deep venous thrombosis. V/Q scan: Low probability for PE Chest X-Ray: Peripheral interstitial edema. Moderate to severe cardiomegaly. Left anterior chest cardiac device. Currently on therapeutic enoxaparin Hyperlipidemia Continue atorvastatin 10 mg daily History of polysubstance abuse Per patient he has no history polysubstance abuse, per EMR he has history of polysubstance abuse which is the etiology of his nonischemic cardiomyopathy. Counseled for over 16 minutes on continuing cessation of substance abuse DIET: Cardiac PUD prophylaxis: protonix 40mg DVT prophylaxis: Levonox 40mg Goals of care: Full code, discussed for >16 minutes on 04/20/25 Plan discussed with patient Plan discussed with Dr. Sesay Plan discussed with: Patient Date of Service: Apr 20, 2025 Billing Provider: ABHIJIT SESAY MD Common Visit Codes: [id number] INP/OBS CARE(HIGH) Secondary Visit Codes: [id number] CARE PLAN 30 MINUTES ANTOINE CATALAN RESIDENT Apr 20, 2025 12:27 ABHIJIT SESAY MD Apr 21, 2025 19:15
--- NOTE | 2025-04-20 14:51 | DVH ---
NUCLEAR MEDICINE VENTILATION/PERFUSION LUNG SCAN. INDICATION: PULMONARY EMBOLISM COMPARISON: XY CHEST PORTABLE on DOS: 04/19/25, XY CHEST PORTABLE on DOS: 04/11/25, XY CHEST XRAY 1 VIE W on DOS: 03/20/25, XY CHEST PORTABLE on DOS: 03/05/25, CT CHEST on DOS: 01/08/25 TECHNIQUE: Following intravenous demonstration of 5.27 millicuries of technetium 99m MAA, and inhal ation of 5.2 mCi of Xe 133 scintigrams were obtained in multiple projections of the lungs. FINDINGS: There is normal uptake of radionuclide on both the ventilation and perfusion portions of the examinat ion. No mismatched perfusion defects are demonstrated. Uptake is normally homogeneous. IMPRESSION: Low probability for PE.
[2025-04-20] MEDS ORDERED: MORPHINE SULFATE 4 MG/ML SYR/VIAL IV PRN (16:30)
[2025-04-20] MEDS: MORPHINE SULFATE 4 MG/ML SYR/VIAL IV PRN (19:53)
[2025-04-20] MEDS: ONDANSETRON HCL 4 MG/2 ML VIAL IV PRN (20:01)
[2025-04-20] MEDS: ATORVASTATIN 20 MG TAB PO SCH (21:16)
[2025-04-20] MEDS ORDERED: ENOXAPARIN SOD 40 MG/0.4 ML SYRINGE SC SCH (22:00)
[2025-04-21] VITALS (8 sets, daily range): BP systolic 100–117; BP diastolic 56–85; PULSE 71–87; RESP 15–20; TEMP 97.4–97.9; O2SAT 92–100
--- NOTE | 2025-04-21 06:11 | ECG ---
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
--- NOTE | 2025-04-21 06:12 | ECG ---
[facility] Test Date: 2025-04-19 Test Time: 17:00:13 Pat Name: SUHAIL VILLALTA Department: Room: 0218T B Gender: M It Network Administrator: JESSE : 1960 Requested By: JESSICA DONAHUE Order Number: [id number] Reading MD: Adrián Mock Measurements Intervals [place] Rate: 81 P: 44 CA: 241 QRS: -80 QRSD: 158 T: 77 QT: 431 QTc: 501 Interpretive Statements Sinus rhythm Prolonged CA interval Probable left atrial enlargement Nonspecific IVCD with LAD Left ventricular hypertrophy Inferior infarct, acute (LCx) Anterior infarct, old Lateral leads are also involved Electronically Signed On 04-23-2025 22:02:47 PDT by Adrián Mock Please click the below link to view image of tracing.
[2025-04-21 09:30] LABS: Hematocrit 37.5 % (41.0-53.0); Hemoglobin 13.0 g/dL (13.5-17.5); Mean Corpuscular Hemoglobin 32.4 pg (28.0-32.0); Mean Corpuscular Volume 93.6 fL (80.0-100.0); Nucleated Red Blood Cells % 0.2 %
[2025-04-21 09:34] LABS: Anion Gap 8 (5-15); Potassium 3.6 mmol/L (3.5-5.1)
[2025-04-21 09:40] LABS: BUN/Creatinine Ratio 13.1 (10.0-20.0); Blood Urea Nitrogen 13 mg/dL (9-23)
[2025-04-21 09:41] LABS: Calcium 8.6 mg/dL (8.7-10.4); Carbon Dioxide 32 mmol/L (20-31); Chloride 93 mmol/L (98-107); Glucose 72 mg/dL (74-106); Sodium 133 mmol/L (136-145)
[2025-04-21] MEDS ORDERED: FUROSEMIDE 20 MG/2 ML VIAL IV SCH (10:00)
[2025-04-21] MEDS: FUROSEMIDE 20 MG/2 ML VIAL IV SCH (11:12)
--- NOTE | 2025-04-21 13:11 | DVHPNRES ---
Progress Note Date Seen: Apr 21, 2025 Resident Creating Document: ANTOINE CATALAN RESIDENT Medical Necessity Reason Pt with a Central, PICC or Fol: No Objective vital signs Vital Sign Date Time Temp Pulse Resp B/P (MAP) Pulse Ox O2 Delivery O2 Flow Rate FiO2 04/21/25 12:38 97.5 87 19 105/85 (92) 100 97.5 04/21/25 08:00 Nasal Cannula* 2 28 Total Intake and Output 04/20/25 04/20/25 04/21/25 15:00 23:00 07:00 Output Total 950 ml Balance -950 ml medications Current Medications Medications Dose Ordered Sig/Brian Route Start Time Stop Time Status Last Admin Dose Admin Ondansetron HCl 4 mg Q4HP PRN IV 04/19/25 22:15 04/21/25 09:47 4 MG Acetaminophen 650 mg Q6HP PRN PO 04/19/25 22:15 04/20/25 08:13 650 MG Nitroglycerin 0.4 mg Q5MINP PRN SL 04/19/25 22:15 Pantoprazole Sodium 40 mg DAILY@0600 PO 04/20/25 06:00 04/21/25 05:31 40 MG Spironolactone 25 mg DAILY PO 04/20/25 10:00 04/21/25 11:10 25 MG Aspirin 81 mg DAILY PO 04/20/25 10:00 04/21/25 09:46 81 MG Atorvastatin Calcium 10 mg HS PO 04/20/25 22:00 04/20/25 21:16 10 MG Ivabradine 5 mg BID PO 04/20/25 10:00 04/20/25 11:20 5 MG Amiodarone HCl 200 mg BID PO 04/20/25 10:00 04/21/25 09:46 200 MG Furosemide 40 mg DAILY IV 04/21/25 10:00 04/21/25 11:12 40 MG Morphine Sulfate 2 mg Q4HPRN PRN IV 04/20/25 16:30 04/21/25 09:48 2 MG Morphine Sulfate 2 mg Q30M PRN IV 04/20/25 16:30 Enoxaparin Sodium 80 mg Q12HR SC 04/21/25 22:00 laboratory and microbiology Laboratory Tests 04/21/25 08:23 Test 04/21/25 08:23 Range/Units Serum Glucose 72 L 74-106 mg/dL Problem List/Assessment/Plan Problem List/Assessment/Plan Assessment/Plan Acute exacerbation chronic systolic heart failure HFrEF with LVEF 6% - status post COUNSELOR AIDE-D placement Acute on chronic respiratory failure Nonischemic cardiomyopathy (probably secondary to history of polysubstance abuse) Severe MR Pacemaker in right cardiac chambers Rule out acute coronary syndrome and aortic dissection CXR shows peripheral interstitial edema, cardiomegaly Troponins negative EKG shows sinus rhythm, prolonged [place], nonspecific IVCD with LAD, LVH BNP 3007 Ordered ABG Patient is allergic to shellfish, can not complete angio CT, echo ordered. If continue to suspect dissection, can perform ultrasound of abdominal aorta Amiodarone 200 mg Carvedilol 3.2135 mg Furosemide 20mg Ivabradine 5 mg Spironolactone 25 mg Nitroglycerin 0.4 mg Strict I&O Continue GDMT with spironolactone, carvedilol, ivabradine Suggest device interrogation. Patient has history of broken leads. Consider cardiological evaluation to optimize severe MR and cardiac device leads. Hyponatremia Hypokalemia Hypocalcemia Supplemented, continue monitoring BMP Transaminitis Hyperbilirubinemia Liver cirrhosis Elevated bilirubin, AST, ALT, ALP Ordered abdomen ultrasound Liver US: Thickening of the gallbladder wall with pericholecystic fluid. Monocytosis Monitor CBC Pulmonary hypertension (RVSP 58 mmHg) Ruled out DVT/PE Ordered lower extremity ultrasound, CT angio, dispensary technician canceled ordered due to allergy to shellfish. Extremity Venous Study: No right or left lower extremity deep venous thrombosis. V/Q scan: Low probability for PE Chest X-Ray: Peripheral interstitial edema. Moderate to severe cardiomegaly. Left anterior chest cardiac device. Currently on therapeutic enoxaparin Hyperlipidemia Continue atorvastatin 10 mg daily History of polysubstance abuse Per patient he has no history polysubstance abuse, per EMR he has history of polysubstance abuse which is the etiology of his nonischemic cardiomyopathy. Counseled for over 16 minutes on continuing cessation of substance abuse DIET: Cardiac PUD prophylaxis: protonix 40mg DVT prophylaxis: Levonox 40mg Goals of care: Full code, discussed for >16 minutes on 04/20/25 Plan discussed with patient Plan discussed with Dr. Sesay My Orders My Orders Orders - ANTOINE CATALAN Procedure Category Date Status Time Mrsa Screen KIMBERLEY 9/29/25 In Process 19:03 Complete Blood Count LAB 04/22/25 Verified 04:00 Basic Metabolic Panel LAB 04/22/25 Verified 04:00 ANTOINE CATALAN RESIDENT Apr 21, 2025 13:11
[2025-04-21] MEDS: ALBUTEROL SULF 2.5 MG/0.5ML(0.5%) NEB SOLN NEB SCH (15:32)
[2025-04-21] MEDS: IPRATROPIUM BROM 0.5 MG/2.5ML INH SOL NEB SCH (15:32)
[2025-04-21] MEDS ORDERED: BUME1TAB3 PO (15:44)
[2025-04-21] MEDS ORDERED: ASPI-325 PO (15:44)
[2025-04-21] MEDS ORDERED: CARV3.1240 PO (15:44)
[2025-04-21] MEDS ORDERED: DAPA1TAB4 PO (15:44)
[2025-04-21] MEDS ORDERED: SPIR25TA8 PO (15:44)
[2025-04-21] MEDS ORDERED: AMIO200T13 PO (15:44)
[2025-04-21] MEDS ORDERED: APIX5TAB PO (15:45)
[2025-04-21] MEDS ORDERED: LOSA-533 PO (15:51)
[2025-04-21] MEDS ORDERED: IPRATROPIUM BROM 0.5 MG/2.5ML INH SOL NEB SCH (18:00)
[2025-04-21] MEDS ORDERED: ALBUTEROL SULF 2.5 MG/0.5ML(0.5%) NEB SOLN NEB SCH (18:00)
--- NOTE | 2025-04-21 19:04 | DVHDSRES ---
Discharge Summary Date of Admission Resident Creating Document: ANTOINE CATALAN RESIDENT Apr 19, 2025 at 22:04 Date of Discharge: Apr 21, 2025 Admitting Diagnosis chest pain Labs/Diagnostic Data: Laboratory Results Test 04/21/25 08:23 04/20/25 07:57 04/20/25 07:56 04/20/25 05:00 White Blood Count 4.4 10^3/uL (4.4-10.8) Red Blood Count 4.00 10^6/uL (4.5-5.90) Hemoglobin 13.0 g/dL (13.5-17.5) Hematocrit 37.5 % (41.0-53.0) Mean Corpuscular Volume 93.6 fL (80.0-100.0) Mean Corpuscular Hemoglobin 32.4 pg (28.0-32.0) Mean Corpuscular Hemoglobin Concent 34.6 g/dL (32.0-36.0) Red Cell Distribution Width 22.5 % (11.8-14.3) Platelet Count 160 10^3/uL (140-450) Mean Platelet Volume 8.9 fL (6.9-10.8) Neutrophils (%) (Auto) 65.6 % (37.0-80.0) Lymphocytes (%) (Auto) 12.2 % (10.0-50.0) Monocytes (%) (Auto) 17.5 % (0.0-12.0) Eosinophils (%) (Auto) 3.4 % (0.0-7.0) Basophils (%) (Auto) 1.3 % (0.0-2.0) Neutrophils # (Auto) 2.9 10 ^3/uL (1.6-8.6) Lymphocytes # (Auto) 0.5 10 ^3/uL (0.4-5.4) Monocytes # (Auto) 0.8 10 ^3/uL (0-1.3) Eosinophils # (Auto) 0.2 10 ^3/uL (0-0.8) Basophils # (Auto) 0.1 10 ^3/uL (0-0.2) Nucleated Red Blood Cells 0.2 % Sodium Level 133 mmol/L (136-145) Potassium Level 3.6 mmol/L (3.5-5.1) Chloride Level 93 mmol/L (98-107) Carbon Dioxide Level 32 mmol/L (20-31) Anion Gap 8 (5-15) Blood Urea Nitrogen 13 mg/dL (9-23) Creatinine 0.99 mg/dL (0.700-1.30) Glomerular Filtration Rate Calc 86 mL/min (>90) BUN/Creatinine Ratio 13.1 (10.0-20.0) Serum Glucose 72 mg/dL (74-106) Calcium Level 8.6 mg/dL (8.7-10.4) Influenza Type A Antigen Negative (Negative) Influenza Type B Antigen Negative (Negative) SARS-CoV-2 Antigen (Rapid) Negative (NEGATIVE) Blood Gas Specimen Type Arterial Blood Gas Sample Site Right brachial Blood Gas Patient Temperature 37.0 Arterial Blood Date Drawn Arterial Blood pH 7.537 (7.350-7.450) Arterial Blood Partial Pressure CO2 32.8 mmHg (35.0-48.0) Arterial Blood Partial Pressure O2 102.0 mmHg (83.0-108.0) Arterial Blood HCO3 27.2 mmol/L (21.0-28.0) Arterial Blood Oxygen Saturation 98.3 % (94.0-98.0) Arterial Blood Base Excess 5.0 mmol/L (-2.0-3.0) Arterial Blood Oxyhemoglobin 95.8 % (94.0-98.0) Arterial Blood Carboxyhemoglobin 2.0 % (0.5-1.5) Arterial Blood Methemoglobin 0.5 % (0.0-1.5) Bay Test N/a Blood Gas Total Hemoglobin 13.70 g/dL (13.5-17.5) Blood Gas Liter Flow 2.00 Blood Gas Modality Nasal cannula FiO2 % 28.0 Test 04/20/25 04:13 04/20/25 01:39 04/20/25 01:00 04/19/25 18:21 Total Bilirubin 8.1 mg/dL (0.2-1.0) Aspartate Amino Transferase (AST) 67 U/L (13-40) Alanine Aminotransferase (ALT) 54 U/L (7-40) Alkaline Phosphatase 208 U/L (46-116) Total Protein 5.9 g/dL (5.7-8.2) Albumin 3.3 g/dL (3.2-4.8) Lactic Acid Level 1.3 mmol/L (0.4-2.0) Urine Color Yellow (Yellow) Urine Clarity Clear (Clear) Urine pH 6.0 (5.0-9.0) Urine Specific [place]andrew[place] 1.020 (1.001-1.035) Urine Protein Trace (Negative) Urine Ketones Negative (Negative) Urine Blood Negative /uL (Negative) Urine Nitrite Negative (Negative) Urine Bilirubin 1+ (Negative) Urine Urobilinogen 12 mg/dL (Negative) Urine Leukocyte Esterase Negative /uL (Negative) Urine RBC None seen /hpf (0 - 3) Urine Microscopic WBC 1 /HPF (0-3) Urine Squamous Epithelial Cells None seen /hpf (<5) Urine Bacteria None seen /hpf (None Seen) Urine Hyaline Casts Few /lpf (0 - 2) Urine Glucose 4+ mg/dL (Normal) Urine Opiates Screen Pos (NEGATIVE) Urine Fentanyl Screen Neg (NEGATIVE) Urine Barbiturates Screen Neg (NEGATIVE) Urine Phencyclidine Screen Neg (NEGATIVE) Urine Amphetamines Screen Neg (NEGATIVE) Urine Benzodiazepines Screen Neg (NEGATIVE) Urine Cocaine Screen Neg (NEGATIVE) Urine Cannabinoids Screen Pos (NEGATIVE) Serum Osmolality 291 mOsm/kg (278-298) Troponin I High Sensitivity 23 ng/L (</=54) Thyroid Stimulating Hormone (TSH) 2.99 uIU/mL (0.55-4.78) Test 04/19/25 17:19 Differential Total Cells Counted 100.0 (100) Neutrophils % (Manual) 67 (37.0-80.0) Band Neutrophils % (Manual) 0 Lymphocytes % (Manual) 13 (10.0-50.0) Monocytes % (Manual) 18 (0-12) Eosinophils % (Manual) 2 (0-7) Basophils % (Manual) 0 (0.0-2.0) Metamyelocytes % (manual) 0 Myelocytes % (Manual) 0 Promyelocytes % (Manual) 0 Blast Cells % (Manual) 0 Reactive Lymphocytes 0 Platelet Estimate Adequate Prothrombin Time 14.7 sec (9.3-11.8) Prothrombin Time INR 1.44 (0.9-1.15) Activated Partial Thromboplast Time 29.4 SEC (24.5-34.5) Hemoglobin A1c 5.6 % A1C (<5.7) Phosphorus Level 1.9 mg/dL (2.4-5.1) Magnesium Level 1.9 mg/dL (1.6-2.6) Direct Bilirubin 6.7 mg/dL (<0.3) C-Reactive Protein High Sensitivity 2.71 mg/dL (<1.0) B-Type Natriuretic Peptide 3007.48 pg/mL (0-100) Triglycerides Level 119 mg/dL (< 150) Cholesterol Level 98 mg/dL (< 200) LDL Cholesterol 75 mg/dL (< 100) HDL Cholesterol 6 mg/dL (40-59) Lipase 138 U/L (12-53) Vitamin B12 Level 1670 pg/mL (211-911) Vitamin D 25-Hydroxy 49.1 ng/mL (30.0-100) Hepatitis A IgM Antibody Negative Hepatitis B Surface Antigen Negative (Negative) Hepatitis B Core IgM Antibody Negative (Negative) Hepatitis C Antibody Negative (Negative) Other Laboratory Tests 04/21/25 08:23 Brief Hx & Hospital Course: Patient is a 65-year-old male with a complex medical history including non- ischemic cardiomyopathy (last [facility] 2021, likely secondary to polysubstance abuse), heart failure with reduced ejection fraction (EF 6%) status post GUEST ATTENDANT-D placement with broken leads, pulmonary embolism, liver cirrhosis, and hypertension. He presented to [facility] ED with a two-day history of sudden-onset, substernal chest pain rated 10/10, associated with nausea and dyspnea. He also reported chronic lower extremity swelling and numbness, and uses compression stockings and a walker. History was limited due to discomfort. He resides in a [facility] facility and declined hospice services at this time. Initial evaluation included chest X-ray showing peripheral interstitial edema and cardiomegaly, EKG with sinus rhythm and nonspecific IVCD, and elevated BNP (3007). Troponins were negative. Due to shellfish allergy, CT angiography was deferred; echocardiogram and abdominal ultrasound were ordered. Liver ultrasound revealed gallbladder wall thickening with pericholecystic fluid, consistent with cirrhosis-related changes. The patient was managed for acute on chronic systolic heart failure, acute respiratory failure, and electrolyte abnormalities including hyponatremia, hypokalemia, and hypocalcemia. He received supplementation and continued monitoring. V/Q scan and extremity venous studies ruled out DVT/PE. Therapeutic enoxaparin was continued. Cardiology was consulted for device interrogation and management of severe mitral regurgitation. GDMT was continued with spironolactone, carvedilol, ivabradine, and other heart failure medications. He was counseled on substance abuse cessation and advised to follow a strict low-sodium diet with fluid restriction under 1200 mL/day. Discharge planning includes follow-up in the discharge clinic and with primary care in one week, and cardiology in 12 weeks. Home medications include aspirin, amiodarone, bumetanide, spironolactone, carvedilol, losartan, and farxiga. Examination General: Patient is in visible distress due to pain. Patient not following commands due to chest pain. Patient alert and oriented in person, place and time. HEENT: Normocephalic, atraumatic, dry mucous membranes Respiratory/pulmonary: Bibasilar rales, rest of lung auscultation limited by not following commands Cardiovascular: Distant heart sounds Abdomen: Distended abdomen, reports discomfort on palpation. Extremities: Grade 1 bilateral infrapatellar pitting edema Skin: Multiple rash history 2 pruritus. Left thigh wound healing with scabbing Neurologic exam: Normal sensory, motor strength. Operations or Procedures PATIENT: SUHAIL VILLALTA ACCT: [id number] UNIT: [id number] : 1960 LOC: OVERFLOW ROOM / BED: [address] [place] [address] AGE / SEX: 65 / M ADM STATUS: ADM IN SERVICE 045 ORDERING PHYSICIAN: ESTEVAN BRAN RESIDENT PROCEDURE(s): VQ - NM VQ SCAN REASON: PULMONARY EMBOLISM ORDER NUMBER(s): [id number], ACCESSION NUMBER(s): [id number] NUCLEAR MEDICINE VENTILATION/PERFUSION LUNG SCAN. INDICATION: PULMONARY EMBOLISM COMPARISON: XY CHEST PORTABLE on DOS: 04/19/25, XY CHEST PORTABLE on DOS: 04/11/25, XY CHEST XRAY 1 VIEW on DOS: 03/20/25, XY CHEST PORTABLE on DOS: 03/05/25, CT CHEST on DOS: 01/08/25 TECHNIQUE: Following intravenous demonstration of 5.27 millicuries of technetium 99m MAA, and inhalation of 5.2 mCi of Xe 133 scintigrams were obtained in multiple projections of the lungs. FINDINGS: There is normal uptake of radionuclide on both the ventilation and perfusion portions of the examination. No mismatched perfusion defects are demonstrated. Uptake is normally homogeneous. IMPRESSION: Low probability for PE. PATIENT: PAWANSUHAIL ACCT: [id number] UNIT: [id number] : 1960 LOC: OVERFLOW ROOM / BED: [address] [place] [address] AGE / SEX: 65 / M ADM STATUS: ADM IN SERVICE 0038 ORDERING PHYSICIAN: ESTEVAN BRAN PROCEDURE(s): BLDVT - BiLat Lower DVT REASON: Bilateral lower limb swelling ORDER NUMBER(s): [id number], ACCESSION NUMBER(s): [id number] US BiLat Lower DVT HISTORY: Bilateral lower limb swelling COMPARISON: US BILAT LOWER DVT on DOS: 01/08/24 TECHNIQUE: Duplex doppler evaluation of the deep venous system of the lower extremity from the common femoral veins, superficial femoral vein, great saphenous vein, deep femoral vein, popliteal vein, and calf veins, including color doppler and spectral/pulsed waveform analysis, was performed. FINDINGS: Right: - Common femoral vein: Compressible - Deep femoral vein: Compressible - Femoral vein: Compressible - Popliteal vein: Compressible - Posterior tibial vein: Waveforms present - Other: Nothing Left: - Common femoral vein: Compressible - Deep femoral vein: Compressible - Femoral vein: Compressible - Popliteal vein: Compressible - Posterior tibial vein: Waveforms present - Other: Nothing IMPRESSION: No right or left lower extremity deep venous thrombosis. PATIENT: PAWANSUHAIL ACCT: [id number] UNIT: [id number] : 1960 LOC: OVERFLOW ROOM / BED: [facility] / A AGE / SEX: 65 / M ADM STATUS: ADM IN SERVICE 0035 ORDERING PHYSICIAN: ESTEVAN BRAN PROCEDURE(s): LIVUS - LIVER REASON: Elevated bilirubin ORDER NUMBER(s): [id number], ACCESSION NUMBER(s): [id number] INDICATION: Elevated bilirubin TECHNIQUE: Multiple real-time sonographic images of the abdomen were obtained. COMPARISON: US ABDOMEN LIMITED on DOS: 04/06/25, US ABDOMEN LIMITED on DOS: 03/25/25, US GALLBLADDER on DOS: 03/20/25, US LIVER on DOS: 03/06/25, US GALLBLADDER on DOS: 02/06/24 FINDINGS: The liver is homogenous in echogenicity. The liver measures 16cm. No intrahepatic biliary ductal dilatation is noted. The gallbladder wall measures 0.5 cm and is thickened. No gallstones or sludge is seen. The common duct measures 0.4 cm and is unremarkable. No pericholecystic fluid is noted. The right kidney measures 12cm. No hydronephrosis. The pancreas is not well visualized due to obscuration from bowel gas. The visualized portions of the IVC and aorta are grossly unremarkable. IMPRESSION: Thickening of the gallbladder wall with pericholecystic fluid. PATIENT: SUHAIL VILLALTA ACCT: [id number] UNIT: [id number] : 1960 LOC: ER ROOM / BED: / AGE / SEX: 65 / M ADM STATUS: REG ER SERVICE 1800 ORDERING PHYSICIAN: BOB JACKSON MD PROCEDURE(s): CXRP - CHEST PORTABLE REASON: chest pain ORDER NUMBER(s): [id number], ACCESSION NUMBER(s): [id number] EXAM: XY CHEST PORTABLE HISTORY: chest pain TECHNIQUE: 1 view of the chest COMPARISON: XY CHEST PORTABLE on DOS: 04/11/25 FINDINGS/IMPRESSION: LUNGS: Peripheral interstitial edema. MEDIASTINUM: Moderate to severe cardiomegaly. Left anterior chest cardiac device. BONES: No acute osseous abnormality. OTHER: None. PATIENT: PAWANSUHAIL ACCT: [id number] : 1960 LOC: [facility] ROOM / BED: [address] [place] [address] AGE / SEX: 65 / M ADM STATUS: ADM IN SERVICE UNIT: [id number] ORDERING PHYSICIAN: JESSICA DONAHUE MD PROCEDURE(s): EKG - ELECTROCARDIGRAM ORDER NUMBER(s): [id number], ACCESSION NUMBER(s): [id number] [facility] Test Date: 2025-04-19 Test Time: 20:00:34 Pat Name: SUHAIL VILLALTA Department: [facility] ED Room: [facility] Gender: M Product Handler: EFRA : 1960 Requested By: JESSICA DONAHUE Order Number: [id number] Reading MD: Measurements Intervals [place] Rate: 78 P: 25 MT: 192 QRS: -66 QRSD: 166 T: 100 QT: 450 QTc: 513 Interpretive Statements Sinus rhythm Left bundle branch block Please click the below link to view image of tracing. PATIENT: SUHAIL VILLALTA ACCT: [id number] : 1960 LOC: TELE-CENTR ROOM / BED: 0218T / B AGE / SEX: 65 / M ADM STATUS: ADM IN SERVICE UNIT: [id number] ORDERING PHYSICIAN: JESSICA DONAHUE MD PROCEDURE(s): EKG - ELECTROCARDIGRAM ORDER NUMBER(s): [id number], ACCESSION NUMBER(s): [id number] Test Date: 2025-04-19 Test Time: 17:00:13 Pat Name: SUHAIL VILLALTA Department: Room: [facility] Gender: M Product Handler: JESSE : 1960 Requested By: JESSICA DONAHUE Order Number: [id number] Reading MD: Measurements Intervals [place] Rate: 81 P: 44 MT: 241 QRS: -80 QRSD: 158 T: 77 QT: 431 QTc: 501 Interpretive Statements Sinus rhythm Prolonged MT interval Probable left atrial enlargement Nonspecific IVCD with LAD Left ventricular hypertrophy Inferior infarct, acute (LCx) Anterior infarct, old Lateral leads are also involved Please click the below link to view image of tracing. DICTATED BY: DICTATED DATE/TIME:04/19/25 1700 PATIENT: SUHAIL VILLALTA ACCT: [id number] : 1960 LOC: ER ROOM / BED: / AGE / SEX: 65 / M ADM STATUS: REG ER SERVICE UNIT: [id number] ORDERING PHYSICIAN: JESSICA DONAHUE MD PROCEDURE(s): EKG - ELECTROCARDIGRAM ORDER NUMBER(s): [id number], ACCESSION NUMBER(s): [id number] Test Date: 2025-04-19 Test Time: 18:08:17 Pat Name: SUHAIL VILLALTA Department: [facility] ED Room: Gender: M Product Handler: DENNYS : 1960 Requested By: JESSICA DONAHUE Order Number: [id number] Reading MD: Measurements Intervals [place] Rate: 79 P: 24 MT: 236 QRS: -86 QRSD: 173 T: 75 QT: 452 QTc: 519 Interpretive Statements Sinus rhythm Prolonged MT interval Nonspecific IVCD with LAD Left ventricular hypertrophy Please click the below link to view image of tracing. Condition at Discharge: Stable Final Diagnosis/Problems List ACUTE ON CHRONIC HEART FAILURE WITH REDUCED EJECTION FRACTION ACUTE HYPOXIC RESPIRATORY FAILURE Discharge Disposition: Home Discharge Instruct/Medications Diet: Cardiac 2g Na,low cholest Diet comment: Strictly low-salt diet is advised and total fluid restriction less than 1200ml Activity: No Restrictions, As Tolerated Follow Up/Referral: Follow up in the discharge clinic in 1 week Follow up with the primary care provider in 1 week Follow up with the mine administrator supervisor in 1-2 weeks Medications: Aspirin 81 mg daily Amiodarone 200 mg twice daily Bumetanide 1 mg daily Spironolactone 25 mg daily carvedilol 3.125 mg twice daily losartan 25mg daily farxiga 10mg daily Scheduled Amiodarone HCl (Amiodarone HCl), 1 TAB PO BID Aspirin (Aspirin Low Dose), 1 TAB PO DAILY Bumetanide (Bumetanide), 1 TAB PO DAILY Carvedilol (Carvedilol), 3.125 MG PO BID Cholecalciferol (Vitamin D3), 1 TAB PO DAILY, (Reported) Dapagliflozin Propanediol (Farxiga), 10 MG PO DAILY Digoxin (Digoxin), 1 TAB PO DAILY, (Reported) Famotidine (Pepcid Tablet), 1 TAB PO BID Losartan Potassium (Losartan Potassium), 25 MG PO DAILY Nitroglycerin (Ntrostat Sublingual), 0.4 MG SL PRN, (Reported) Pantoprazole Sodium Sesquihydr (Pantoprazole Sodium), 1 TAB PO DAILY, (Reported) Simvastatin (Simvastatin), 10 MG PO DAILY, (Reported) Spironolactone (Spironolactone), 1 TAB PO DAILY Discontinued Medications Carvedilol (Carvedilol), 1 TAB PO BID, (Reported) Ivabradine Hydrochloride (Corlanor), 1 TAB PO BID, (Reported) Mexiletine HCl (Mexiletine Hydrochloride), 1, (Reported) Midodrine HCl (Midodrine Hydrochloride), 2 TAB PO TID, (Reported) Potassium Chloride (Potassium Chloride ER), 20 MEQ PO DAILY Vericiguat (Verquvo), 1 TAB PO DAILY, (Reported) Discharge Statement: "Patient was advised to return to the ER or call 911 if any headaches, dizziness, shortness of breath, chest pain, abdominal pain, bleeding, fevers, or worsening of medical condition. Patient was counseled about treatment plan, medications, possible side effects, patientverbalized understanding. All questions were answered to the best of my ability. This discharge took greater then 30 minutes in planning, reviewing documentation, counseling the patient, and discussing with other team members." ASSESSMENT ASSESSMENT Assessment ACUTE ON CHRONIC HEART FAILURE WITH REDUCED EJECTION FRACTION ACUTE HYPOXIC RESPIRATORY FAILURE Date of Service: Apr 21, 2025 Billing Provider: ABHIJIT MCGREGOR MD Common Visit Codes: 29163-SGT/OBS DISCH DAY >30min ANTOINE CATALAN RESIDENT Apr 21, 2025 19:04 ABHIJIT MCGREGOR MD Apr 21, 2025 19:16
[2025-04-21] MEDS ORDERED: ENOXAPARIN SOD 80 MG/0.8ML SYRINGE SC SCH (22:00)
== END 2025-04-21 18:36 | disposition home or self-care (01) | DRG 133 ==
LOC: ER 16:53 → OVERFLOW 22:04 → TELE-CENTR 04-20 15:36
PROVIDERS: ADMIT Internal Medicine Geriatric Medicine; ATTEND Internal Medicine Geriatric Medicine
DX: J96.01 Acute respiratory failure with hypoxia (principal); I50.23 Acute on chronic systolic (congestive) heart failure; I11.0 Hypertensive heart disease with heart failure; K74.60 Unspecified cirrhosis of liver; E78.5 Hyperlipidemia, unspecified; E87.1 Hypo-osmolality and hyponatremia; E87.6 Hypokalemia; I25.10 Atherosclerotic heart disease of native coronary artery without angina pectoris; I48.91 Unspecified atrial fibrillation; E11.9 Type 2 diabetes mellitus without complications; Z79.82 Long term (current) use of aspirin; Z79.899 Other long term (current) drug therapy; Z95.810 Presence of automatic (implantable) cardiac defibrillator; Z82.49 Family history of ischemic heart disease and other diseases of the circulatory system; Z83.3 Family history of diabetes mellitus; Z87.891 Personal history of nicotine dependence; Z91.013 Allergy to seafood
CPT/HCPCS: 36415; 36600; 71045; 76705; 78582; 80048; 80053; 80061; 80074; 80076; 80307; 81001; 82306; 82607; 82805; 83036; 83605; 83690; 83735; 83880; 83930; 84100; 84132; 84443; 84484; 85007; 85025; 85027; 85610; 85730; 86141; 87081; 87426; 87804; 93005; 93970; 94640; 96374; 96375; 99291; G0378; J2405

== ENCOUNTER 2025-05-10 13:06 | Inpatient (IN) | payer MEDICAID ==
[~2025-05-10] VITALS: Ht 182.9 cm; Wt 79.5 kg
[~2025-05-10 13:06] MED LIST changes: -ASPI-325; +ASPI-325 PO; +CARV3.1240 PO; -CARV6.2551 PO; -IVAB1.7T PO; +LOSA-533 PO; -MEXI150C15; -MIDO5TAB22 PO; -POTA-228 PO; -VERI10TA PO
--- NOTE | 2025-05-10 13:13 | ECG ---
[facility] Test Date: 2025-05-10 Test Time: 13:12:12 Pat Name: SUHAIL VILLALTA Department: [facility] ED Patient ID: [facility]-[id number] Room: Gender: M Distillation Operator: DENNYS : 1960 Requested By: JESSICA DONAHUE Order Number: [id number] Reading MD: Adrián Mock Measurements Intervals [place] Rate: 99 P: 15 [place]: 178 QRS: 208 QRSD: 167 T: 31 QT: 407 QTc: 523 Interpretive Statements Sinus rhythm Probable left atrial enlargement Nonspecific intraventricular conduction delay Probable inferior infarct, recent Lateral infarct, acute Anteroseptal infarct, age indeterminate Electronically Signed On 05-10-2025 17:04:28 PDT by Adrián Mock Please click the below link to view image of tracing.
--- NOTE | 2025-05-10 13:41 | ED.PDOC ---
HPI Comments 65 y.o male presents to the ED for a chief complaint of substernal chest pain associated with bilateral leg swelling that started today around 10am while laying in bed. Patient describes pain as sharp, localized to the left side which does not radiate and is constant. Patient states taking diuretics due to his legs swelling and double the dose. He denies any nausea, vomiting, SOB, fever, chills, or abdominal pain. Chief Complaint: Chest Pain Time Seen by MD: 13:20 Primary Care Provider: GABRIELA Booker Notes: Nurses Notes, Medications, Allergies Allergies: Coded Allergies: Shellfish Allergy (Unverified Allergy, Severe, 09/11/23) CRAB Uncoded Allergies: CRAB (Allergy, Severe, 08/06/17) Home Meds Active Scripts Losartan Potassium (Losartan Potassium) 25 Mg Tab, 25 MG PO DAILY for 30 Days, #30 TAB 0 Refills Prov:MICAELA WRIGHT 04/21/25 Carvedilol (Carvedilol) 3.125 Mg Tab, 3.125 MG PO BID for 30 Days, #60 TAB 0 Refills Prov:MICAELA WRIGHT [facility] 04/21/25 Amiodarone HCl (Amiodarone HCl) 200 Mg Tab, 1 TAB PO BID for 30 Days, #60 TAB Prov:MICAELA WRIGHT [facility] 04/21/25 Spironolactone (Spironolactone) 25 Mg Tab, 1 TAB PO DAILY for 30 Days, #30 TAB Prov:MICAELA WRIGHT 04/21/25 Bumetanide (Bumetanide) 1 Mg Tab, 1 TAB PO DAILY for 30 Days, #30 TAB Prov:MICAELA WRIGHT [facility] 04/21/25 Aspirin (Aspirin Low Dose) 81 Mg Tab, 1 TAB PO DAILY for 30 Days, #30 TAB Prov:MICAELA TOPETE 04/21/25 Dapagliflozin Propanediol (Farxiga) 10 Mg Tab, 10 MG PO DAILY for 30 Days, #30 TAB Prov:MICAELA TOPETE 04/21/25 Famotidine (PEPCID TABLET) 20 Mg Tb, 1 TAB PO BID for 30 Days, #60 TAB 0 Refills Prov:BRAIN LAI MD 03/07/25 Reported Medications Pantoprazole Sodium Sesquihydr (Pantoprazole Sodium) 40 Mg Tab, 1 TAB PO DAILY for 30 Days, #30 05/12/24 Simvastatin (Simvastatin) 10 Mg Tab, 10 MG PO DAILY, MG 05/12/24 Cholecalciferol (VITAMIN D3) 2,000 Unit Tab, 1 TAB PO DAILY 01/09/24 Digoxin (Digoxin) 125 Mcg Tab, 1 TAB PO DAILY 01/09/24 Nitroglycerin (NTROSTAT SUBLINGUAL) 0.4 Mg Sl, 0.4 MG SL PRN, TAB *MAY REPEAT EVERY 5 MINUTES X 3 TOTAL IF NO RELIEF, INITIATE ANALGESIC THERAPY. NOTIFY PHYSICIAN *Do not crush. 05/15/23 Information Source: Patient Mode of Arrival: Ambulatory Severity: Moderate Timing: Hours Duration: Since onset Location: Chest (L) Radiation: No Radiation Quality: Sharp Onset: At Rest Cardiac Risk Factors: HTN PE Risk Factors: None History of: None Past Medical History PAST MEDICAL HISTORY: AFIB, Angina, CAD, CHF, DM, High Lipids, HTN, PE Surgical History: Pacemaker, PTCA Family History Family History: Reviewed,noncontributory to illness, Family hx of DM, Family hx of heart bhavik, Family hx of HTN Social History Smoker: Quit Greater Than 1 Year, Cigarettes Alcohol: Sober Drugs: Denies Drug Use Lives In: Home Constitutional: denies: chills, diaphoresis, fatigue, fever, malaise, sweats, weakness, others EENTM: denies: blurred vision, double vision, ear bleeding, ear discharge, ear drainage, ear pain, ear ringing, eye pain, eye redness, hearing loss, mouth pain, mouth swelling, nasal discharge, nose bleeding, nose congestion, nose monica n, photophobia, tearing, throat pain, throat swelling, voice changes, others Respiratory: denies: cough, hemoptysis, orthopnea, SOB at rest, shortness of breath, SOB with excertion, stridor, wheezing, others Cardiovascular: reports: chest pain; denies: dizzy spells, diaphoresis, Dyspnea on exertion, edema, irregular heart beat, left arm pain, lightheadedness, palpitations, PND, syncope, others Gastrointestinal: denies: abdomen distended, abdominal pain, blood streaked bowels, constipated, diarrhea, dysphagia, difficulty swallowing, hematemesis, me darryl, nausea, poor appetite, poor fluid intake, rectal bleeding, rectal pain, vomiting, others Genitourinary: denies: burning, dysuria, flank pain, frequency, hematuria, incontinence, penile discharge, penile sore, pain, testicle pain, testicle swelling, urgency, others Neurological: denies: dizziness, fainting, headache, left sided numbness, left sided weakness, numbness, paresthesia, pre-existing deficit, right sided numbness, right sided weakness, seizure, speech problems, tingling, tremors, weakness, others Musculoskeletal: denies: back pain, gout, joint pain, joint swelling, muscle pain, muscle stiffness, neck pain, others Integumetry: denies: bruises, change in color, change in hair/nails, dryness, laceration, lesions, lumps, rash, wounds, others Allergic/Immunocompromised: denies: Difficulty Healing, Frequent Infections, Hives, Itching, others Hematologic/Lymphatic: denies: anemia, blood clots, easy bleeding, easy bruising, swollen glands, others Endocrine: denies: excessive hunger, excessive sweating, excessive thirst, excessive urination, flushing, intolerance to cold, intolerance to heat, unexplained weight gain, unexplained weight loss, others Psychiatric: denies: anxiety, bipolar disorder, depression, hopeless, panic disorder, schizophrenia, sleepless, suicidal, others All Other Systems: Reviewed and Negative Physical Exam General Appearance: Moderate Distress HEENT: Normal ENT Inspection, Pharynx Normal, TMs Normal Neck: Full Range of Motion, Non-Tender, Normal, Normal Inspection Respiratory: Chest Non-Tender, Lungs Clear, No Accessory Muscle Use, No Respiratory Distress, Normal Breath Sounds Cardiovascular: No Edema, No JVD, No Murmur, No Gallop, Normal Peripheral Pulses, Regular Rate/Rhythm Breast Exam: Deferred Gastrointestinal: No Organomegaly, Non Tender, No Pulsatile Mass, Normal Bowel Sounds, Soft Genitalia: Deferred Pelvic: Deferred Rectal: Deferred Extremities: No calf tenderness, Normal capillary refill, Normal inspection, Normal range of motion, Non-tender, No pedal edema Musculoskeletal : Apperance: Normal 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 Was a procedure done?: No CP Differential Dx Differential Diagnosis: A-fib, A-Flutter, Angina, Anxiety / Panic Attack, Atrial Dysrhythmia, Electrolyte Disorder, N/A Differential Diagnosis: Angina, Chest Wall Pain, Cholelithiasis, Costochondritis, Pericarditis X-Ray, Labs, Meds, VS Vital Signs Date Time Temp Pulse Resp B/P (MAP) Pulse Ox O2 Delivery O2 Flow Rate FiO2 05/10/25 16:20 100/73 05/10/25 15:54 95 18 100/73 (82) 99 05/10/25 14:22 93 05/10/25 13:41 65 05/10/25 13:12 99 05/10/25 13:06 97.9 97 19 116/73 100 97.9 Lab Test 05/10/25 16:00 05/10/25 14:23 05/10/25 13:17 Range/Units Urine Color Yellow Yellow Urine Clarity Clear Clear Urine pH 6.5 5.0-9.0 Urine Specific [place] 1.007 1.001-1.035 Urine Protein Negative Negative Urine Ketones Negative Negative Urine Blood Negative Negative /uL Urine Nitrite Negative Negative Urine Bilirubin Negative Negative Urine Urobilinogen 8 H Negative mg/dL Urine Leukocyte Esterase Negative Negative /uL Urine RBC <1 0 - 3 /hpf Urine Microscopic WBC < 1 0-3 /HPF Urine Squamous Epithelial Cells None seen <5 /hpf Urine Bacteria None seen None Seen /hpf Urine Hyaline Casts Few 0 - 2 /lpf Urine Glucose Normal Normal mg/dL Sodium Level 131 L 136-145 mmol/L Potassium Level 3.7 3.5-5.1 mmol/L Chloride Level 96 L 98-107 mmol/L Carbon Dioxide Level 24 20-31 mmol/L Anion Gap 11 5-15 Blood Urea Nitrogen 13 9-23 mg/dL Creatinine 1.17 0.700-1.30 mg/dL Glomerular Filtration Rate Calc 70 >90 mL/min BUN/Creatinine Ratio 11.1 10.0-20.0 Serum Glucose 136 H 74-106 mg/dL Calcium Level 8.6 L 8.7-10.4 mg/dL Troponin I High Sensitivity 16 18 </=54 ng/L White Blood Count 5.3 4.4-10.8 10^3/uL Red Blood Count 4.17 L 4.5-5.90 10^6/uL Hemoglobin 13.2 L 13.5-17.5 g/dL Hematocrit 40.0 L 41.0-53.0 % Mean Corpuscular Volume 96.1 80.0-100.0 fL Mean Corpuscular Hemoglobin 31.7 28.0-32.0 pg Mean Corpuscular Hemoglobin Concent 33.0 32.0-36.0 g/dL Red Cell Distribution Width 23.2 H 11.8-14.3 % Platelet Count 235 140-450 10^3/uL Mean Platelet Volume 8.2 6.9-10.8 fL Neutrophils (%) (Auto) 68.7 37.0-80.0 % Lymphocytes (%) (Auto) 11.7 10.0-50.0 % Monocytes (%) (Auto) 15.4 H 0.0-12.0 % Eosinophils (%) (Auto) 3.1 0.0-7.0 % Basophils (%) (Auto) 1.1 0.0-2.0 % Neutrophils # (Auto) 3.6 1.6-8.6 10 ^3/uL Lymphocytes # (Auto) 0.6 0.4-5.4 10 ^3/uL Monocytes # (Auto) 0.8 0-1.3 10 ^3/uL Eosinophils # (Auto) 0.2 0-0.8 10 ^3/uL Basophils # (Auto) 0.1 0-0.2 10 ^3/uL Nucleated Red Blood Cells 0.3 % Platelet Estimate Adequate Anisocytosis (manual) Slight Current Medications Medications (Trade) Dose Ordered Sig/Brian Route Start Time Stop Time Status Last Admin Furosemide (Lasix Injection) 40 mg ONCE ONCE IV 05/10/25 15:45 05/10/25 15:46 DC 05/10/25 16:20 Patient alert. Came in because of chest pain. Sclerae icterus. Vitals stable. Denies any liver disease. No leg swelling. He does take water pill. EKG reviewed does show changes. Has a defibrillator. History of bradycardia. Chest x-ray reviewed does show CHF. Was given Lasix. Continue monitoring. Time of 1ST Reevaluation: 13:41 Reevaluation 1ST: Unchanged Patient Education/Counseling: Diagnosis, Treatment, Prognosis Family Education/Counseling: No Family Present SEPSIS Sepsis Screen Date sepsis recognized/suspect: May 10, 2025 Time Sepsis recognized/suspect: 1306 Recent Procedure: No On Antibiotic Therapy: No Respiratory Rate >20: No Heart Rate >90: No Temp<36 C (96.8 F) or >38.3 C: No SBP <90 or MAP <65 mmHG: No New Acute Mental Status Change: No Is the patient on CPAP, BIPAP,: No Physician Orders Chest Portable (05/10/25 14:26) Hydrocodone-Acet 10/325mg Tab ([place] 10/ (05/10/25 16:45) Vital Signs Date Time Temp Pulse Resp B/P (MAP) Pulse Ox O2 Delivery O2 Flow Rate FiO2 05/10/25 16:20 100/73 05/10/25 15:54 95 18 100/73 (82) 99 05/10/25 14:22 93 05/10/25 13:41 65 05/10/25 13:12 99 05/10/25 13:06 97.9 97 19 116/73 100 97.9 Laboratory Tests Test 05/10/25 13:17 White Blood Count 5.3 10^3/uL (4.4-10.8) Medications Medications Dose Ordered Sig/Brian Route Start Time Stop Time Status Last Admin Dose Admin Furosemide 40 mg ONCE ONCE IV 05/10/25 15:45 05/10/25 15:46 DC 05/10/25 16:20 Departure 1 Departure Time of Disposition: 15:29 Impression: Primary Impression: CHF exacerbation Qualified Codes: I50.43 - Acute on chronic combined systolic (congestive) and diastolic (congestive) heart failure Additional Impression: Chest pain of unknown etiology Disposition: 09 ADMITTED INPATIENT Admit to: Med Surg Condition: Guarded Critical Care Note Critical Care Time?: Yes (90 min-critical care time only) Stability Stability form required: No Heart Score Heart Score: Heart Score Response (Comments) Value History Slightly Suspicious 0 EKG Normal 0 Age >65 2 Risk Factors >3 or Hx ASHD 2 Troponin Normal limit 0 Total 4 I personally scribed for JESSICA DONAHUE MD ([email or web address]) on 05/10/25 at 13:41. Electronically submitted by Gauri HookMCLAR[facility]). JESSICA DONAHUE MD May 10, 2025 13:41
[2025-05-10 14:41] LABS: Hematocrit 40.0 % (41.0-53.0); Hemoglobin 13.2 g/dL (13.5-17.5); Mean Corpuscular Hemoglobin 31.7 pg (28.0-32.0); Mean Corpuscular Volume 96.1 fL (80.0-100.0); Nucleated Red Blood Cells % 0.3 %
[2025-05-10 14:59] LABS: Potassium 3.7 mmol/L (3.5-5.1)
[2025-05-10 15:00] LABS: Anisocytosis Slight
[2025-05-10 15:01] LABS: Anion Gap 11 (5-15)
[2025-05-10 15:02] LABS: BUN/Creatinine Ratio 11.1 (10.0-20.0); Blood Urea Nitrogen 13 mg/dL (9-23)
[2025-05-10 15:03] LABS: Calcium 8.6 mg/dL (8.7-10.4); Carbon Dioxide 24 mmol/L (20-31); Chloride 96 mmol/L (98-107); Glucose 136 mg/dL (74-106); Sodium 131 mmol/L (136-145)
--- NOTE | 2025-05-10 15:08 | DVH ---
CHEST RADIOGRAPH Indication: sob Technique: Single frontal view of the chest was obtained Comparison: XR CHEST 1 VIEW on DOS: 05/03/25, XY CHEST PORTABLE on DOS: 04/19/25, XY CHEST PORTABLE on DOS: 04/11/25 FINDINGS: Lines and Tubes: None Lungs: No focal consolidation. Diffuse interstitial prominence. Pleura: No effusion. No pneumothorax. Cardiomediastinal contours: Moderate cardiomegaly with mild Atherosclerotic calcification uncoiling o f the aorta. Redemonstration of chronic appearing fracture of the proximal portion of the coronary s inus lead of a biventricular AICD. Bones: No acute osseous abnormality. Nonspecific 5 mm metallic density overlying the right medial lorie ulder region. IMPRESSION: Cardiomegaly with findings suggestive of congestive heart failure.
[2025-05-10 16:10] LABS: Urine Protein, UAD Negative (Negative)
[2025-05-10] MEDS: FUROSEMIDE 40 MG/4 ML VIAL IV ONE (16:20)
--- NOTE | 2025-05-10 16:26 | ECG ---
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
--- NOTE | 2025-05-10 16:26 | ECG ---
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
[2025-05-10] MEDS: HYDROcodone-ACET 10/325MG TAB PO ONE (17:23)
--- NOTE | 2025-05-10 21:51 | DVHHP2 ---
History of Present Illness Reason for Visit: Shortness for breath History of Present Illness 65-year-old male presents for evaluation of shortness for breath. Patient presents with a two day history of bilateral lower extremity swelling and substernal chest tightness. Also reports having a nonproductive cough. No fever or chills. No other acute complaints. Past Medical History CHF, diabetes mellitus, CAD, AFib, dyslipidemia, hypertension Past Surgical History PTCA, pacemaker Family History Diabetes mellitus and heart disease Smoke: Quit ALCOHOL: none Drugs: None Lives: with Family Review of Systems Review of Systems Review of systems are currently negative otherwise addressed in HPI. Allergies: Coded Allergies: Shellfish Allergy (Unverified Allergy, Severe, 09/11/23) CRAB Uncoded Allergies: CRAB (Allergy, Severe, 08/06/17) Medications Current Medications Medications Dose Ordered Sig/Biran Route Start Time Stop Time Status Last Admin Dose Admin Furosemide 20 mg BIDD IV 05/11/25 06:00 Spironolactone 25 mg DAILY PO 05/11/25 10:00 Atorvastatin Calcium 10 mg HS PO 05/10/25 22:00 Amiodarone HCl 200 mg Q12HR PO 05/10/25 22:00 Carvedilol 3.125 mg Q12HR PO 05/10/25 22:00 Digoxin 0.125 mg DAILY PO 05/11/25 10:00 Losartan Potassium 25 mg DAILY PO 05/11/25 10:00 Ondansetron HCl 4 mg Q4HP PRN IV 05/10/25 19:45 Acetaminophen 650 mg Q6HP PRN PO 05/10/25 19:45 Exam Vital Signs Vital Signs Date Time Temp Pulse Resp B/P (MAP) Pulse Ox O2 Delivery O2 Flow Rate FiO2 05/10/25 16:20 100/73 05/10/25 15:54 95 18 99 05/10/25 13:06 97.9 97.9 Exam Gen: 65-year-old male in mild distress. Skin: Warm, dry, normal color and texture, no rash. HEENT: Normocephalic atraumatic, mucous membranes moist and pink. Neck: Cervical and supraclavicular nodes normal without enlargement, trachea is midline, thyroid gland is normal without masses. Pulmonary: Clear to auscultation and percussion bilaterally. Cardiac: Regular rate and rhythm. No murmur Abdomen: Soft, nontender, nondistended, bowel sounds present all 4 quadrants, no guarding, no rigidity, no organomegaly. Extremities: No cyanosis, clubbing, plus two bilateral pedal edema. Neuro: Cranial nerves II through XII grossly intact, normal affect and speech, no focal motor deficits. Labs/Xrays ORDERING PHYSICIAN: SAM SMITH DNP PROCEDURE(s): ECIDC - ECHO 2D MODE CARDIAC DOP REASON: CHF exacerbation, unspecified ORDER NUMBER(s): [id number], ACCESSION NUMBER(s): [id number] APPROVED REPORT EXAM: Two-dimensional and M-mode echocardiogram with Doppler and color Doppler. Blood Pressure: 108/65 mmHg INDICATION CHF Exacerbation Surgery/Intervention Pacemaker: RISK FACTORS Height: 6', Weight: 190 DIMENSIONS LVDd 7.3 (3.8-5.7cm) LA (2D) 5.7 (1.9-4.0cm) Aortic Root 3.3 (2.0- 3.7cm) LVDs 7.1 (2.5-4.0cm) LA (MM) (1.9-4.0cm) Aortic Cusp Exc 1.8 (1.5- 2.0cm) EF (%) 6.0 (55-70%) Rt. Atrium 6.0 (1.9-4.0cm) Asc. Aorta cm IVSd 1.1 (0.7-1.1cm) RV (D) (1.8-2.4cm) PWd 1.3 (0.7-1.1cm) Mitral Valve Mitral Mitral Stenosis E wave 0.90m/s MV Mean GR. mmHg A wave 0.40m/s MV Peak GR. mmHg E/A ratio 2.3 2D MVA cm2 Aortic Valve Aortic Valve Aortic Stenosis V1 0.30m/s AO Mean GR. 2mmHg V2 0.80m/s AO Peak GR. 3mmHg LVOT Diameter 2.4 (1.8-2.4cm) Doppler SYEDA 1.70cm2 Pulmonic Valve V2 0.30m/s Tricuspid Valve TR Velocity 3.20m/s RVSP 52mmHg Conclusion REMARKABLY DILATED ALL CARDIAC CHAMBERS SEVERE HYPOKINESIS OF ALL CARDIAC CHAMBERS LV EF IS ONLY 6% NORMALVALVES MILD PERICARDIAL EFFUSION PACEMAKER IN RIGHT CARDIAC CHAMBERS SEVERE MITRAL VALVE REGURGITATION SEVERE PULMONARY HYPERTENSION RVSP IS 52 MM OF HG AND IS VERY HIGH SIGNED BY: CHAITANYA CULP MD SIGNED DATE/TIME: 12/28/24 1526 CC: ORDERING PHYSICIAN: JESSICA DONAHUE MD PROCEDURE(s): CXRP - CHEST PORTABLE REASON: sob ORDER NUMBER(s): [id number], ACCESSION NUMBER(s): [id number] CHEST RADIOGRAPH Indication: sob Technique: Single frontal view of the chest was obtained Comparison: XR CHEST 1 VIEW on DOS: 05/03/25, XY CHEST PORTABLE on DOS: 04/19/25, XY CHEST PORTABLE on DOS: 04/11/25 FINDINGS: Lines and Tubes: None Lungs: No focal consolidation. Diffuse interstitial prominence. Pleura: No effusion. No pneumothorax. Cardiomediastinal contours: Moderate cardiomegaly with mild Atherosclerotic calcification uncoiling of the aorta. Redemonstration of chronic appearing fracture of the proximal portion of the coronary sinus lead of a biventricular AICD. Bones: No acute osseous abnormality. Nonspecific 5 mm metallic density overlying the right medial shoulder region. IMPRESSION: Cardiomegaly with findings suggestive of congestive heart failure. Labs Test 05/10/25 16:00 05/10/25 14:23 05/10/25 13:17 Range/Units Urine Color Yellow Yellow Urine Clarity Clear Clear Urine pH 6.5 5.0-9.0 Urine Specific [place] 1.007 1.001-1.035 Urine Protein Negative Negative Urine Ketones Negative Negative Urine Blood Negative Negative /uL Urine Nitrite Negative Negative Urine Bilirubin Negative Negative Urine Urobilinogen 8 H Negative mg/dL Urine Leukocyte Esterase Negative Negative /uL Urine RBC <1 0 - 3 /hpf Urine Microscopic WBC < 1 0-3 /HPF Urine Squamous Epithelial Cells None seen <5 /hpf Urine Bacteria None seen None Seen /hpf Urine Hyaline Casts Few 0 - 2 /lpf Urine Glucose Normal Normal mg/dL Sodium Level 131 L 136-145 mmol/L Potassium Level 3.7 3.5-5.1 mmol/L Chloride Level 96 L 98-107 mmol/L Carbon Dioxide Level 24 20-31 mmol/L Anion Gap 11 5-15 Blood Urea Nitrogen 13 9-23 mg/dL Creatinine 1.17 0.700-1.30 mg/dL Glomerular Filtration Rate Calc 70 >90 mL/min BUN/Creatinine Ratio 11.1 10.0-20.0 Serum Glucose 136 H 74-106 mg/dL Calcium Level 8.6 L 8.7-10.4 mg/dL Troponin I High Sensitivity 16 </=54 ng/L White Blood Count 5.3 4.4-10.8 10^3/uL Red Blood Count 4.17 L 4.5-5.90 10^6/uL Hemoglobin 13.2 L 13.5-17.5 g/dL Hematocrit 40.0 L 41.0-53.0 % Mean Corpuscular Volume 96.1 80.0-100.0 fL Mean Corpuscular Hemoglobin 31.7 28.0-32.0 pg Mean Corpuscular Hemoglobin Concent 33.0 32.0-36.0 g/dL Red Cell Distribution Width 23.2 H 11.8-14.3 % Platelet Count 235 140-450 10^3/uL Mean Platelet Volume 8.2 6.9-10.8 fL Neutrophils (%) (Auto) 68.7 37.0-80.0 % Lymphocytes (%) (Auto) 11.7 10.0-50.0 % Monocytes (%) (Auto) 15.4 H 0.0-12.0 % Eosinophils (%) (Auto) 3.1 0.0-7.0 % Basophils (%) (Auto) 1.1 0.0-2.0 % Neutrophils # (Auto) 3.6 1.6-8.6 10 ^3/uL Lymphocytes # (Auto) 0.6 0.4-5.4 10 ^3/uL Monocytes # (Auto) 0.8 0-1.3 10 ^3/uL Eosinophils # (Auto) 0.2 0-0.8 10 ^3/uL Basophils # (Auto) 0.1 0-0.2 10 ^3/uL Nucleated Red Blood Cells 0.3 % Platelet Estimate Adequate Anisocytosis (manual) Slight B-Type Natriuretic Peptide 3106.54 0-100 pg/mL SEPSIS Sepsis Screen Date sepsis recognized/suspect: May 10, 2025 Time Sepsis recognized/suspect: 1306 Recent Procedure: No On Antibiotic Therapy: No Respiratory Rate >20: No Heart Rate >90: No Temp<36 C (96.8 F) or >38.3 C: No SBP <90 or MAP <65 mmHG: No New Acute Mental Status Change: No Is the patient on CPAP, BIPAP,: No Physician Orders Chest Portable (05/10/25 14:26) Basic Metabolic Panel (05/11/25 04:00) Furosemide Injection (Lasix Injection) (05/11/25 06:00) Spironolactone (Aldactone) (05/11/25 10:00) Atorvastatin (Lipitor) (05/10/25 22:00) Amiodarone Tablet (Cordarone Tablet) (05/10/25 22:00) Carvedilol Tablet (Coreg Tablet) (05/10/25 22:00) Digoxin Tablet (Lanoxin Tablet) (05/11/25 10:00) Losartan Tablet (Cozaar Tablet) (05/11/25 10:00) Admit (05/10/25 19:31) Ondansetron Hcl (Zofran) (05/10/25 19:45) Cardiac Diet-2gna,Lofat,Lochol (05/11/25 Breakfast) Condition: Stable (05/10/25 19:31) Acetaminophen Tablet (Tylenol Tablet) (05/10/25 19:45) Bedrest With Bathroom Privileg (05/10/25 19:31) Vital Signs Date Time Temp Pulse Resp B/P (MAP) Pulse Ox O2 Delivery O2 Flow Rate FiO2 05/10/25 16:20 100/73 05/10/25 15:54 95 18 100/73 (82) 99 05/10/25 14:22 93 05/10/25 13:41 65 Laboratory Tests Test 05/10/25 13:17 White Blood Count 5.3 10^3/uL (4.4-10.8) Medications Medications Dose Ordered Sig/Brian Route Start Time Stop Time Status Last Admin Dose Admin Acetaminophen/ Hydrocodone Bitart 1 tab ONCE ONCE PO 05/10/25 16:45 05/10/25 16:49 DC 05/10/25 17:23 1 TAB Furosemide 40 mg ONCE ONCE IV 05/10/25 15:45 05/10/25 15:46 DC 05/10/25 16:20 40 MG Assessment/Plan Assessment/Plan Assessment Acute on chronic congestive heart failure Hypertension History of atrial fibrillation Plan Admit the patient to Med surge to the hospitalist IV Lasix Resume home medications Continue treatment per orders Plan discussed with: Patient My Orders Orders - REINA ARRINGTON Procedure Category Date Status Time Basic Metabolic Panel LAB 05/11/25 Verified 04:00 Furosemide Injection PHA 05/11/25 In Process (Lasix Injection) 06:00 Spironolactone PHA 05/11/25 In Process (Aldactone) 10:00 Atorvastatin (Lipitor) PHA 05/10/25 In Process 22:00 Amiodarone Tablet PHA 05/10/25 In Process (Cordarone Tablet) 22:00 Carvedilol Tablet PHA 05/10/25 In Process (Coreg Tablet) 22:00 Digoxin Tablet PHA 05/11/25 In Process (Lanoxin Tablet) 10:00 Losartan Tablet PHA 05/11/25 In Process (Cozaar Tablet) 10:00 Admit ADMIT 05/10/25 Transmitted 19:31 Ondansetron Hcl PHA 05/10/25 In Process (Zofran) 19:45 Cardiac DIET 05/11/25 Transmitted Diet-2gna,Lofat,Lochol Breakfast Condition: Stable JIMMIE 05/10/25 In Process 19:31 Acetaminophen Tablet PHA 05/10/25 In Process (Tylenol Tablet) 19:45 Bedrest With Bathroom JIMMIE 05/10/25 In Process Privileg 19:31 Date of Service: May 10, 2025 Billing Provider: REINA ARRINGTON Common Visit Codes: [id number] INP/OBS CARE (HIGH) REINA ARRINGTON May 10, 2025 21:51
[2025-05-11] VITALS (8 sets, daily range): BP systolic 82–109; BP diastolic 55–73; PULSE 59–82; RESP 16–18; TEMP 96.7–97.7; O2SAT 2–100
[2025-05-11] MEDS: ATORVASTATIN 20 MG TAB PO SCH (00:40)
[2025-05-11] MEDS: AMIODARONE HCL 200 MG TAB PO SCH (00:40)
[2025-05-11] MEDS: CARVEDILOL 3.125 MG TAB PO SCH (00:46)
[2025-05-11] MEDS: FUROSEMIDE 20 MG/2 ML VIAL IV SCH (05:52)
[2025-05-11 07:11] LABS: Anion Gap 10 (5-15); Carbon Dioxide 28 mmol/L (20-31); Potassium 3.8 mmol/L (3.5-5.1)
[2025-05-11 07:17] LABS: BUN/Creatinine Ratio 11.7 (10.0-20.0); Blood Urea Nitrogen 13 mg/dL (9-23); Glucose 85 mg/dL (74-106)
[2025-05-11 07:18] LABS: Calcium 8.4 mg/dL (8.7-10.4); Chloride 94 mmol/L (98-107); Sodium 132 mmol/L (136-145)
[2025-05-11] MEDS: SPIRONOLACTONE 25 MG TAB PO SCH (09:57)
[2025-05-11] MEDS: ACETAMINOPHEN 325 MG TAB PO PRN (09:57)
[2025-05-11] MEDS: DIGOXIN 0.125 MG TAB PO SCH (09:58)
[2025-05-11] MEDS: LOSARTAN POTASSIUM 25 MG TAB PO SCH (09:58)
--- NOTE | 2025-05-11 15:08 | DVHPN2 ---
Assessment/Plan Assessment/Plan progress note 65 w HFrEF admitted for LE swelling and SOB seen today, flat, mild crackles, on room air, swelling improved. physical exam aox4 b/l crackles on RA s1 s2 rrr systolic murmur abdomen soft lE edema to ankle labs ekg imaging reviewed Assessment and plan acute on chronic hypoxic RF acute on chronic systolic HF HFrEF 5% pAfib s/p AICD hyponatremia likely dilutional diurese goal net -1L resume GDMT strict i/o amio coreg dig start lovenox diet cardiac dvt ppx therapeutic lovenox full code Plan discussed with: Patient Date of Service: May 11, 2025 Billing Provider: MEME JAIME MD Common Visit Codes: [id number] INP/OBS CARE(HIGH) MEME JAIME MD May 11, 2025 15:08
[2025-05-11] MEDS ORDERED: MORPHINE SULFATE INJ 2 MG/ml SYRG IV ONE (16:00)
[2025-05-11] MEDS ORDERED: MORPHINE SULFATE INJ 2 MG/ml SYRG IV PRN (16:00)
[2025-05-11] MEDS: ENOXAPARIN SOD 80 MG/0.8ML SYRINGE SC SCH (22:12)
[2025-05-12 01:00] VITALS: BP 97/60; PULSE 61; RESP 17; TEMP 97.5; O2SAT 96
[2025-05-12] MEDS: HYDROmorphone HCL 2 MG/ML VL/or syr IV ONE (03:03)
[2025-05-12] MEDS: ONDANSETRON HCL 4 MG/2 ML VIAL IV PRN (03:11)
[2025-05-12 05:00] VITALS: BP 76/42; PULSE 67; RESP 16; TEMP 97.5; O2SAT 94
[2025-05-12 07:08] LABS: Hematocrit 38.2 % (41.0-53.0); Hemoglobin 12.7 g/dL (13.5-17.5); Mean Corpuscular Hemoglobin 31.7 pg (28.0-32.0); Mean Corpuscular Volume 95.4 fL (80.0-100.0); Nucleated Red Blood Cells % 0.3 %
[2025-05-12 07:19] LABS: Potassium 4.0 mmol/L (3.5-5.1)
[2025-05-12 07:20] LABS: Anion Gap 7 (5-15)
[2025-05-12 07:22] LABS: Calcium 8.1 mg/dL (8.7-10.4); Carbon Dioxide 33 mmol/L (20-31); Chloride 93 mmol/L (98-107); Sodium 133 mmol/L (136-145)
[2025-05-12 07:26] LABS: BUN/Creatinine Ratio 16.7 (10.0-20.0); Blood Urea Nitrogen 18 mg/dL (9-23); Glucose 76 mg/dL (74-106)
[2025-05-12 08:56] VITALS: BP 82/49; PULSE 65; RESP 16; TEMP 98.1; O2SAT 100
[2025-05-12] MEDS: BUMETANIDE 1 MG TAB PO SCH (09:30)
[2025-05-12 13:00] VITALS: BP 93/50; PULSE 70; RESP 16; TEMP 97.5; O2SAT 90
[2025-05-12 17:00] VITALS: BP 112/66; PULSE 71; RESP 16; TEMP 98; O2SAT 99
--- NOTE | 2025-05-12 18:45 | DVHPN2 ---
Assessment/Plan Assessment/Plan progress note 65 w HFrEF admitted for LE swelling and SOB seen today, diuresing well, close to euvolemic. plan to dc tomorrow. refusing lovenox physical exam aox4 b/l crackles on RA s1 s2 rrr systolic murmur abdomen soft lE edema to ankle labs ekg imaging reviewed Assessment and plan acute on chronic hypoxic RF acute on chronic systolic HF HFrEF 5% pAfib s/p AICD hyponatremia likely dilutional diurese goal net -1L resume GDMT strict i/o amio coreg dig start lovenox diet cardiac dvt ppx therapeutic lovenox full code Plan discussed with: Patient Date of Service: May 12, 2025 Billing Provider: MEME JAIME MD Common Visit Codes: [id number] INP/OBS CARE(HIGH) MEME JAIME MD May 12, 2025 18:45
[2025-05-12 20:38] VITALS: BP 101/55; PULSE 72; RESP 18; TEMP 98.6; O2SAT 99
[2025-05-12] MEDS: MELATONIN 5 MG TAB PO ONE (22:12)
[2025-05-13] VITALS (7 sets, daily range): BP systolic 76–115; BP diastolic 55–74; PULSE 66–77; RESP 14–19; TEMP 97.3–98.6; O2SAT 95–100
--- NOTE | 2025-05-13 03:59 | DVH ---
EXAM: XY L SHOULDER 1V XRAY CLINICAL INDICATION: fall TECHNIQUE: XY L SHOULDER 1V XRAY Comparison: XY L SHOULDER 2+ VIEW XRAY on DOS: 03/23/25 FINDINGS/IMPRESSION: There is no evidence of acute fracture or dislocation. The visualized joint space is well maintained. The alignment is anatomical. There is no radiopaque foreign body.
[2025-05-13 06:12] LABS: Potassium 4.7 mmol/L (3.5-5.1)
[2025-05-13 06:13] LABS: Anion Gap 5 (5-15); Carbon Dioxide 28 mmol/L (20-31)
[2025-05-13 06:18] LABS: Calcium 8.2 mg/dL (8.7-10.4); Chloride 96 mmol/L (98-107); Glucose 99 mg/dL (74-106); Sodium 129 mmol/L (136-145)
[2025-05-13 06:19] LABS: BUN/Creatinine Ratio 23.6 (10.0-20.0); Blood Urea Nitrogen 25 mg/dL (9-23)
--- NOTE | 2025-05-13 14:47 | DVHPN2 ---
Assessment/Plan Assessment/Plan progress note 65 w HFrEF admitted for LE swelling and SOB. diuresing well, close to euvolemic. start eliquis dc tomorrow back to board and care. pt today. needs walker seen today, physical exam aox4 b/l crackles on RA s1 s2 rrr systolic murmur abdomen soft lE edema to ankle labs ekg imaging reviewed Assessment and plan acute on chronic hypoxic RF acute on chronic systolic HF HFrEF 5% pAfib s/p AICD hyponatremia likely dilutional diurese goal net -1L resume GDMT strict i/o amio coreg dig start eliquis diet cardiac dvt ppx therapeutic lovenox full code Plan discussed with: Patient Date of Service: May 13, 2025 Billing Provider: MEME JAIME MD Common Visit Codes: [id number] INP/OBS CARE(HIGH) MEME JAIME MD May 13, 2025 14:47
[2025-05-13] MEDS: HYDROcodone-ACET 5/325MG TAB PO PRN (16:41)
[2025-05-13] MEDS: KETOROLAC TROMETH 30 MG/ML 1ML VIAL IV ONE (22:12)
[2025-05-14 01:08] VITALS: BP_SYST 156; BP_SYST 92; BP_DIAS 63; BP_DIAS 84; PULSE 65; PULSE 77; RESP 19; RESP 20; TEMP 98; TEMP 98.1; O2SAT 97; O2SAT 98
[2025-05-14 05:00] VITALS: BP 91/64; PULSE 59; RESP 19; TEMP 98; O2SAT 100
[2025-05-14 08:25] VITALS: PULSE 67; RESP 17
[2025-05-14 09:00] VITALS: BP 106/77; PULSE 67; RESP 21; TEMP 98.8; O2SAT 100
[2025-05-14] MEDS ORDERED: APIX5TAB PO (09:14)
[2025-05-14] MEDS ORDERED: ATOR40TA52 PO (09:14)
--- NOTE | 2025-05-14 09:16 | DVHDS2 ---
Discharge Summary Date of Admission May 10, 2025 at 19:31 Date of Discharge: May 14, 2025 Labs/Diagnostic Data: Laboratory Results Test 05/13/25 05:22 05/13/25 00:29 05/12/25 06:22 05/10/25 16:00 Sodium Level 129 mmol/L (136-145) Potassium Level 4.7 mmol/L (3.5-5.1) Chloride Level 96 mmol/L (98-107) Carbon Dioxide Level 28 mmol/L (20-31) Anion Gap 5 (5-15) Blood Urea Nitrogen 25 mg/dL (9-23) Creatinine 1.06 mg/dL (0.700-1.30) Glomerular Filtration Rate Calc 79 mL/min (>90) BUN/Creatinine Ratio 23.6 (10.0-20.0) Serum Glucose 99 mg/dL (74-106) Calcium Level 8.2 mg/dL (8.7-10.4) POC Glucose 108 mg/dl (70-106) White Blood Count 4.8 10^3/uL (4.4-10.8) Red Blood Count 4.00 10^6/uL (4.5-5.90) Hemoglobin 12.7 g/dL (13.5-17.5) Hematocrit 38.2 % (41.0-53.0) Mean Corpuscular Volume 95.4 fL (80.0-100.0) Mean Corpuscular Hemoglobin 31.7 pg (28.0-32.0) Mean Corpuscular Hemoglobin Concent 33.2 g/dL (32.0-36.0) Red Cell Distribution Width 21.9 % (11.8-14.3) Platelet Count 191 10^3/uL (140-450) Mean Platelet Volume 8.0 fL (6.9-10.8) Neutrophils (%) (Auto) 67.9 % (37.0-80.0) Lymphocytes (%) (Auto) 8.9 % (10.0-50.0) Monocytes (%) (Auto) 13.0 % (0.0-12.0) Eosinophils (%) (Auto) 9.2 % (0.0-7.0) Basophils (%) (Auto) 1.0 % (0.0-2.0) Neutrophils # (Auto) 3.2 10 ^3/uL (1.6-8.6) Lymphocytes # (Auto) 0.4 10 ^3/uL (0.4-5.4) Monocytes # (Auto) 0.6 10 ^3/uL (0-1.3) Eosinophils # (Auto) 0.4 10 ^3/uL (0-0.8) Basophils # (Auto) 0 10 ^3/uL (0-0.2) Nucleated Red Blood Cells 0.3 % Digoxin Level < 0.14 ng/mL (0.8-2) Urine Color Yellow (Yellow) Urine Clarity Clear (Clear) Urine pH 6.5 (5.0-9.0) Urine Specific [place] 1.007 (1.001-1.035) Urine Protein Negative (Negative) Urine Ketones Negative (Negative) Urine Blood Negative /uL (Negative) Urine Nitrite Negative (Negative) Urine Bilirubin Negative (Negative) Urine Urobilinogen 8 mg/dL (Negative) Urine Leukocyte Esterase Negative /uL (Negative) Urine RBC <1 /hpf (0 - 3) Urine Microscopic WBC < 1 /HPF (0-3) Urine Squamous Epithelial Cells None seen /hpf (<5) Urine Bacteria None seen /hpf (None Seen) Urine Hyaline Casts Few /lpf (0 - 2) Urine Glucose Normal mg/dL (Normal) Test 05/10/25 14:23 05/10/25 13:17 Troponin I High Sensitivity 16 ng/L (</=54) Platelet Estimate Adequate Anisocytosis (manual) Slight B-Type Natriuretic Peptide 3106.54 pg/mL (0-100) Other Laboratory Tests 05/13/25 05:22 05/12/25 06:22 Condition at Discharge: Stable Final Diagnosis/Problems List acute on chronic hf HFrEF Discharge Disposition: Home Discharge Instruct/Medications Diet: Consistent carbohydrate, Cardiac 2g Na,low cholest Activity: No Restrictions, As Tolerated Medications: resume home eliquis Scheduled Amiodarone HCl (Amiodarone HCl), 1 TAB PO BID Apixaban Base (Eliquis), 5 MG PO BID Aspirin (Aspirin Low Dose), 1 TAB PO DAILY Atorvastatin Calcium (Atorvastatin Calcium), 1 TAB PO DAILY Bumetanide (Bumetanide), 1 TAB PO DAILY Carvedilol (Carvedilol), 3.125 MG PO BID Cholecalciferol (Vitamin D3), 1 TAB PO DAILY, (Reported) Dapagliflozin Propanediol (Farxiga), 10 MG PO DAILY Digoxin (Digoxin), 1 TAB PO DAILY, (Reported) Famotidine (Pepcid Tablet), 1 TAB PO BID Losartan Potassium (Losartan Potassium), 25 MG PO DAILY Nitroglycerin (Ntrostat Sublingual), 0.4 MG SL PRN, (Reported) Pantoprazole Sodium Sesquihydr (Pantoprazole Sodium), 1 TAB PO DAILY, (Reported) Simvastatin (Simvastatin), 10 MG PO DAILY, (Reported) Spironolactone (Spironolactone), 1 TAB PO DAILY Discharge Statement: "Patient was advised to return to the ER or call 911 if any headaches, dizziness, shortness of breath, chest pain, abdominal pain, bleeding, fevers, or worsening of medical condition. Patient was counseled about treatment plan, medications, possible side effects, patientverbalized understanding. All questions were answered to the best of my ability. This discharge took greater then 30 minutes in planning, reviewing documentation, counseling the patient, and discussing with other team members." ASSESSMENT ASSESSMENT Assessment acute on chronic hf HFrEF Date of Service: May 14, 2025 Billing Provider: MEME JAIME MD Common Visit Codes: [id number] DISCH DAY >30min MEME JAIME MD May 14, 2025 09:16
[2025-05-14] MEDS ORDERED: ACET-1079 PO (09:17)
[2025-05-14 13:07] VITALS: BP 86/53; PULSE 61; RESP 18; TEMP 96.4; O2SAT 99
== END 2025-05-14 16:30 | disposition home or self-care (01) | DRG 133 ==
LOC: ER 13:06 → OVERFLOW 19:31 → CENTRAL 05-11 00:09
PROVIDERS: ADMIT Student in an Organized Health Care Education/Training Program; ATTEND Student in an Organized Health Care Education/Training Program
DX: J96.21 Acute and chronic respiratory failure with hypoxia (principal); I50.23 Acute on chronic systolic (congestive) heart failure; I11.0 Hypertensive heart disease with heart failure; I48.0 Paroxysmal atrial fibrillation; E87.1 Hypo-osmolality and hyponatremia; E78.5 Hyperlipidemia, unspecified; E11.9 Type 2 diabetes mellitus without complications; I25.10 Atherosclerotic heart disease of native coronary artery without angina pectoris; Z83.3 Family history of diabetes mellitus; Z87.891 Personal history of nicotine dependence; Z91.013 Allergy to seafood; Z95.810 Presence of automatic (implantable) cardiac defibrillator; Z79.899 Other long term (current) drug therapy
CPT/HCPCS: 36415; 71045; 73020; 80048; 80162; 81001; 82962; 83880; 84484; 85025; 87081; 93005; 96374; 97163; 99291; 99292; G0378; J1885; J2405

== ENCOUNTER 2025-05-23 18:32 | Inpatient (IN) | payer MEDICAID ==
[~2025-05-23] VITALS: Ht 188 cm; Wt 77.8 kg
[~2025-05-23 18:32] MED LIST changes: +ACET-1079 PO; +APIX5TAB PO; +ATOR40TA52 PO; -SIMV10TA20 PO
[2025-05-23 19:23] LABS: Hematocrit 39.9 % (41.0-53.0); Hemoglobin 13.5 g/dL (13.5-17.5); Mean Corpuscular Hemoglobin 32.1 pg (28.0-32.0); Mean Corpuscular Volume 95.0 fL (80.0-100.0); Nucleated Red Blood Cells % 0.2 %
[2025-05-23 19:37] LABS: Albumin 4.2 g/dL (3.2-4.8); Anion Gap 14 (5-15); BUN/Creatinine Ratio 17.6 (10.0-20.0); Blood Urea Nitrogen 21 mg/dL (9-23); Calcium 9.2 mg/dL (8.7-10.4); Carbon Dioxide 24 mmol/L (20-31); Glucose 91 mg/dL (74-106); Potassium 3.8 mmol/L (3.5-5.1); Total Protein 7.0 g/dL (5.7-8.2)
[2025-05-23 19:38] LABS: Alanine Aminotransferase 41 U/L (7-40); Alkaline Phosphatase 218 U/L (46-116); Bilirubin, Total 6.1 mg/dL (0.2-1.0); Chloride 97 mmol/L (98-107); Sodium 135 mmol/L (136-145)
[2025-05-23 19:39] LABS: INR 1.48 (0.9-1.15); Partial Thromboplastin Time 29.1 SEC (24.5-34.5); Prothrombin Time 15.1 sec (9.3-11.8)
[2025-05-23 19:45] VITALS: RESP 30; O2SAT 99
--- NOTE | 2025-05-23 19:51 | DVH ---
CLINICAL HISTORY: chest pain TECHNIQUE: Single view of the chest was obtained. COMPARISON: XY CHEST PORTABLE on DOS: 05/10/25, XR CHEST 1 VIEW on DOS: 05/03/25, XY CHEST PORTABLE o n DOS: 04/19/25, XY CHEST PORTABLE on DOS: 04/11/25, XR CHEST 1 VIEW on DOS: 04/04/25 FINDINGS: There is a left chest wall pacing device. The heart size is moderately enlarged with pulmonary vascul ar congestion. There is no dense consolidation. IMPRESSION: Pulmonary vascular congestion
--- NOTE | 2025-05-23 20:29 | ED.PDOC ---
HPI Comments 65-year-old male who came to ER for chest pains. Patient does have history of CHF, diabetes mellitus, CAD, AFib, dyslipidemia, hypertension, status post PTCA, pacemaker. Patient was discharged here last May 15, diagnosed with CHF exacerbation. Few hours ago, patient started experinecing sudden onset left sided chest pains, pressure, 8/10 intensity, associated with shortness of breath. Chief Complaint: Chest Pain Time Seen by MD: 20:28 Primary Care Provider: GABRIELA Reviewed Notes: Nurses Notes Allergies: Coded Allergies: Shellfish Allergy (Unverified Allergy, Severe, 09/11/23) CRAB Uncoded Allergies: CRAB (Allergy, Severe, 08/06/17) Home Meds Active Scripts Acetaminophen (Tylenol) 325 Mg Tb, 650 MG PO TID PRN for 10 Days, #60 TAB Prov:MEME JAIME MD 05/14/25 Apixaban Base (ELIQUIS) 5 Mg Tab, 5 MG PO BID for 30 Days, #60 TAB 1 Refill Prov:MEME JAIME MD 05/14/25 Atorvastatin Calcium (ATORVASTATIN CALCIUM) 40 Mg Tab, 1 TAB PO DAILY, #90 TAB 1 Refill Prov:MEME JAIME MD 05/14/25 Losartan Potassium (Losartan Potassium) 25 Mg Tab, 25 MG PO DAILY for 30 Days, #30 TAB 0 Refills Prov:MICAELA WRIGHT 04/21/25 Carvedilol (Carvedilol) 3.125 Mg Tab, 3.125 MG PO BID for 30 Days, #60 TAB 0 Refills Prov:MICAELA WRIGHT 04/21/25 Amiodarone HCl (Amiodarone HCl) 200 Mg Tab, 1 TAB PO BID for 30 Days, #60 TAB Prov:MICAELA WRIGHT 04/21/25 Spironolactone (Spironolactone) 25 Mg Tab, 1 TAB PO DAILY for 30 Days, #30 TAB Prov:MICAELA WRIGHT 04/21/25 Bumetanide (Bumetanide) 1 Mg Tab, 1 TAB PO DAILY for 30 Days, #30 TAB Prov:MICAELA WRIGHT 04/21/25 Aspirin (Aspirin Low Dose) 81 Mg Tab, 1 TAB PO DAILY for 30 Days, #30 TAB Prov:MICAELA WRIGHT 04/21/25 Dapagliflozin Propanediol (Farxiga) 10 Mg Tab, 10 MG PO DAILY for 30 Days, #30 TAB Prov:MICAELA WRIGHT RESIDENT 04/21/25 Famotidine (PEPCID TABLET) 20 Mg Tb, 1 TAB PO BID for 30 Days, #60 TAB 0 Refills Prov:BRAIN LAI MD 03/07/25 Reported Medications Pantoprazole Sodium Sesquihydr (Pantoprazole Sodium) 40 Mg Tab, 1 TAB PO DAILY for 30 Days, #30 05/12/24 Cholecalciferol (VITAMIN D3) 2,000 Unit Tab, 1 TAB PO DAILY 01/09/24 Digoxin (Digoxin) 125 Mcg Tab, 1 TAB PO DAILY 01/09/24 Nitroglycerin (NTROSTAT SUBLINGUAL) 0.4 Mg Sl, 0.4 MG SL PRN, TAB *MAY REPEAT EVERY 5 MINUTES X 3 TOTAL IF NO RELIEF, INITIATE ANALGESIC THERAPY. NOTIFY PHYSICIAN *Do not crush. 05/15/23 Information Source: Patient Mode of Arrival: Ambulatory Severity: Moderate Timing: Hours Duration: Since onset Location: Chest (L) Radiation: No Radiation Past Medical History PAST MEDICAL HISTORY: AFIB, Angina, CAD, CHF, DM, High Lipids, HTN, PE Surgical History: Pacemaker, PTCA Family History Family History: Family hx of DM, Family hx of heart bhavik, Family hx of HTN Social History Smoker: Quit Greater Than 1 Year, Cigarettes Alcohol: Sober Drugs: Denies Drug Use Lives In: Home Constitutional: denies: chills, diaphoresis, fatigue, fever, malaise, sweats, weakness, others EENTM: denies: blurred vision, double vision, ear bleeding, ear discharge, ear drainage, ear pain, ear ringing, eye pain, eye redness, hearing loss, mouth pain, mouth swelling, nasal discharge, nose bleeding, nose congestion, nose pain, photophobia, tearing, throat pain, throat swelling, voice changes, others Respiratory: reports: SOB at rest, shortness of breath; denies: cough, hemop tysis, orthopnea, SOB with excertion, stridor, wheezing, others Cardiovascular: reports: chest pain, edema; denies: dizzy spells, diaphoresis, Dyspnea on exertion, irregular heart beat, left arm pain, lightheadedness, palpitations, PND, syncope, others Gastrointestinal: denies: abdomen distended, abdominal pain, blood streaked bowels, constipated, diarrhea, dysphagia, difficulty swallowing, hematemesis, melena, nausea, poor appetite, poor fluid intake, rectal bleeding, rectal pain, vomiting, others Genitourinary: denies: burning, dysuria, flank pain, frequency, hematuria, incontinence, penile discharge, penile sore, pain, testicle pain, testicle swelling, urgency, others Neurological: denies: dizziness, fainting, headache, left sided numbness, left sided weakness, numbness, paresthesia, pre-existing deficit, right sided numbness, right sided weakness, seizure, speech problems, tingling, tremors, weakness, others Musculoskeletal: denies: back pain, gout, joint pain, joint swelling, muscle pain, muscle stiffness, neck pain, others Integumetry: denies: bruises, change in color, change in hair/nails, dryness, laceration, lesions, lumps, rash, wounds, others Allergic/Immunocompromised: denies: Difficulty Healing, Frequent Infections, Hives, Itching, others Hematologic/Lymphatic: denies: anemia, blood clots, easy bleeding, easy bruising, swollen glands, others Endocrine: denies: excessive hunger, excessive sweating, excessive thirst, excessive urination, flushing, intolerance to cold, intolerance to heat, unexplained weight gain, unexplained weight loss, others Psychiatric: denies: anxiety, bipolar disorder, depression, hopeless, panic disorder, schizophrenia, sleepless, suicidal, others Physical Exam General Appearance: Moderate Distress, Normal HEENT: Normal ENT Inspection, Pharynx Normal, TMs Normal Neck: Full Range of Motion, Non-Tender, Normal, Normal Inspection Respiratory: Chest Non-Tender, Lungs Clear, No Accessory Muscle Use, No Respiratory Distress, Normal Breath Sounds Cardiovascular: No Edema, No JVD, No Murmur, No Gallop, Normal Peripheral Pulses, Regular Rate/Rhythm Breast Exam: Deferred Gastrointestinal: No Organomegaly, Non Tender, No Pulsatile Mass, Normal Bowel Sounds, Soft Genitalia: Deferred Pelvic: Deferred Rectal: Deferred Extremities: No calf tenderness, Normal capillary refill, Normal inspection, Normal range of motion, Non-tender, No pedal edema Musculoskeletal : Apperance: Normal Neurologic: Alert, flight readiness technician II-XII nml as Tested, No Motor Deficits, Normal Affect, Normal Mood, No Sensory Deficits Cerebellar Function: Normal Reflexes: Normal Skin: Dry, Normal Color, Warm Lymphatic: No Adenopathy EKG EKG : Pulse Rate (adult): 103 Cardiac Rhythm: ST Hypertrophy: LVH ST: New, Inf, Ant Was a procedure done? Was a procedure done?: No CP Differential Dx Differential Diagnosis: A-fib, Angina, Anxiety / Panic Attack, Pacemaker Malfunction Differential Diagnosis: CHF Differential Diagnosis: Angina, Chest Wall Pain, Costochondritis, Esophageal reflux/spasm, Gastritis, Myocardial Infarction X-Ray, Labs, Meds, VS Vital Signs Date Time Temp Pulse Resp B/P (MAP) Pulse Ox O2 Delivery O2 Flow Rate FiO2 05/23/25 21:40 90 20 112/80 05/23/25 20:29 103 05/23/25 19:45 30 99 Room Air* 0 21 05/23/25 19:45 97.8 98 30 115/81 (92) 99 97.8 05/23/25 19:14 97.7 94 17 115/81 (92) 99 97.7 05/23/25 19:09 97 05/23/25 18:39 98.2 16 116/89 97 98.2 05/23/25 18:37 103 Lab Test 05/23/25 19:19 05/23/25 19:00 Range/Units Troponin I High Sensitivity 25 28 </=54 ng/L White Blood Count 5.2 4.4-10.8 10^3/uL Red Blood Count 4.20 L 4.5-5.90 10^6/uL Hemoglobin 13.5 13.5-17.5 g/dL Hematocrit 39.9 L 41.0-53.0 % Mean Corpuscular Volume 95.0 80.0-100.0 fL Mean Corpuscular Hemoglobin 32.1 H 28.0-32.0 pg Mean Corpuscular Hemoglobin Concent 33.8 32.0-36.0 g/dL Red Cell Distribution Width 22.3 H 11.8-14.3 % Platelet Count 190 140-450 10^3/uL Mean Platelet Volume 7.5 6.9-10.8 fL Neutrophils (%) (Auto) 62.5 37.0-80.0 % Lymphocytes (%) (Auto) 15.2 10.0-50.0 % Monocytes (%) (Auto) 17.6 H 0.0-12.0 % Eosinophils (%) (Auto) 3.3 0.0-7.0 % Basophils (%) (Auto) 1.4 0.0-2.0 % Neutrophils # (Auto) 3.2 1.6-8.6 10 ^3/uL Lymphocytes # (Auto) 0.8 0.4-5.4 10 ^3/uL Monocytes # (Auto) 0.9 0-1.3 10 ^3/uL Eosinophils # (Auto) 0.2 0-0.8 10 ^3/uL Basophils # (Auto) 0.1 0-0.2 10 ^3/uL Nucleated Red Blood Cells 0.2 % Prothrombin Time 15.1 H 9.3-11.8 sec Prothrombin Time INR 1.48 H 0.9-1.15 Activated Partial Thromboplast Time 29.1 24.5-34.5 SEC Sodium Level 135 L 136-145 mmol/L Potassium Level 3.8 3.5-5.1 mmol/L Chloride Level 97 L 98-107 mmol/L Carbon Dioxide Level 24 20-31 mmol/L Anion Gap 14 5-15 Blood Urea Nitrogen 21 9-23 mg/dL Creatinine 1.19 0.700-1.30 mg/dL Glomerular Filtration Rate Calc 69 >90 mL/min BUN/Creatinine Ratio 17.6 10.0-20.0 Serum Glucose 91 74-106 mg/dL Calcium Level 9.2 8.7-10.4 mg/dL Total Bilirubin 6.1 H 0.2-1.0 mg/dL Aspartate Amino Transferase (AST) 50 H 13-40 U/L Alanine Aminotransferase (ALT) 41 H 7-40 U/L Alkaline Phosphatase 218 H 46-116 U/L Total Protein 7.0 5.7-8.2 g/dL Albumin 4.2 3.2-4.8 g/dL Current Medications Medications (Trade) Dose Ordered Sig/Brian Route Start Time Stop Time Status Last Admin Morphine Sulfate 4 mg ONCE ONCE IV 05/23/25 21:30 05/23/25 21:31 DC 05/23/25 21:40 PROCEDURE(s): CXR1 - CHEST XRAY 1 VIEW REASON: chest pain ORDER NUMBER(s): [id number], ACCESSION NUMBER(s): [id number] CLINICAL HISTORY: chest pain TECHNIQUE: Single view of the chest was obtained. COMPARISON: XY CHEST PORTABLE on DOS: 05/10/25, XR CHEST 1 VIEW on DOS: 05/03/25, XY CHEST PORTABLE on DOS: 04/19/25, XY CHEST PORTABLE on DOS: 04/11/25, XR CHEST 1 VIEW on DOS: 04/04/25 FINDINGS: There is a left chest wall pacing device. The heart size is moderately enlarged with pulmonary vascular congestion. There is no dense consolidation. IMPRESSION: Pulmonary vascular congestion Time of 1ST Reevaluation: :25 Reevaluation 1ST: Unchanged Patient Education/Counseling: Diagnosis, Treatment Family Education/Counseling: No Family Present SEPSIS Sepsis Screen Date sepsis recognized/suspect: May 23, 2025 Time Sepsis recognized/suspect: 190 Recent Procedure: No On Antibiotic Therapy: No Respiratory Rate >20: No Heart Rate >90: No Temp<36 C (96.8 F) or >38.3 C: No SBP <90 or MAP <65 mmHG: No New Acute Mental Status Change: No Is the patient on CPAP, BIPAP,: No Physician Orders Electrocardigram (05/23/25 19:05) Electrocardigram (05/23/25 20:05) Electrocardigram (05/23/25 22:05) Troponin-I Hs (05/23/25 22:05) Chest Xray 1 View (05/23/25 19:05) Vital Signs Date Time Temp Pulse Resp B/P (MAP) Pulse Ox O2 Delivery O2 Flow Rate FiO2 05/23/25 21:40 90 20 112/80 05/23/25 20:29 103 05/23/25 19:45 30 99 Room Air* 0 21 05/23/25 19:45 97.8 98 30 115/81 (92) 99 97.8 05/23/25 19:14 97.7 94 17 115/81 (92) 99 97.7 05/23/25 19:09 97 05/23/25 18:39 98.2 16 116/89 97 98.2 05/23/25 18:37 103 Laboratory Tests Test 05/23/25 19:00 White Blood Count 5.2 10^3/uL (4.4-10.8) Medications Medications Dose Ordered Sig/Brian Route Start Time Stop Time Status Last Admin Dose Admin Morphine Sulfate 4 mg ONCE ONCE IV 05/23/25 21:30 05/23/25 21:31 DC 05/23/25 21:40 Departure 1 Departure Time of Disposition: 22:15 Impression: Primary Impression: Acute coronary syndrome Additional Impressions: Hypertension Diabetes Disposition: ADMITTED INPATIENT Admit to: Tele Condition: Guarded Comments 65-year-old male with history of prior AICD placement and prior stent now with chest pain. I suspect acute coronary syndrome. Initial troponin is normal. Patient will need admission for supportive care and further workup. Critical Care Note Critical Care Time?: Yes (35 min-critical care time only) Critical care comment: Chest pain Total critical care time: Approximately 36 minutes Due to a high probability of clinically significant, life threatening deterioration, the patient required my highest level of preparedness to intervene emergently and I personally spent this critical care time directly and personally managing the patient. This critical care time included obtaining a history; examining the patient; pulse oximetry; ordering and review of studies; arranging urgent treatment with development of a management plan; evaluation of patient's response to treatment; frequent reassessment; and, discussions with other providers. This critical care time was performed to assess and manage the high probability of imminent, life-threatening deterioration that could result in multi-organ failure. It was exclusive of separately billable procedures and treating other patients. Stability Stability form required: No Heart Score Heart Score: Heart Score Response (Comments) Value History Highly Suspicious [address]-Deviation 2 Age 45-64 1 Risk Factors >3 or Hx ASHD 2 Troponin Normal limit 0 Total 7 I personally scribed for BOB JACKSON MD ([email or web address]) on 05/23/25 at 20:29. Electronically submitted by Tone Griffin ([employer]). I personally scribed for BOB JACKSON MD ([email or web address]) on 05/23/25 at 20:52. Electronically submitted by Tone Griffin ([employer]). BOB JACKSON MD May 23, 2025 20:29
[2025-05-23] MEDS: MORPHINE SULFATE 4 MG/ML SYR/VIAL IV ONE (21:40)
--- NOTE | 2025-05-23 23:57 | DVHINCON2 ---
Date of service: May 23, 2025 Referring Physician Lien Reason for Consultation STEMI,Chest pain History of Present Illness This is a 65-year-old male with a PMH of AFIB, Angina, CAD, CHF, DM, High Lipids, HTN, PE who presented to ED for a complaint of chest pains. Patient states a few hours ago, patient started experiencing sudden onset left sided chest pains, pressure, 8/10 intensity, associated with shortness of breath. Troponin 28 > 25 > 27. EKG shows tachycardia at 103. Chest x-ray shows pulmonary vascular congestion. Patient was admitted to the hospital. I am asked to consult on this patient. Family History: FH: arthritis FH: cancer aunt, Onset:50's - 60 FH: diabetes mellitus G8 MOTHER, , Onset:Unknown FH: stroke G8 MOTHER, , Onset:Unknown FHx: heart disease Family history: Cardiovascular disease G8 MOTHER, , Onset:Unknown Family history: Hypertension G8 MOTHER, , Onset:Unknown Allergies: Coded Allergies: Shellfish Allergy (Unverified Allergy, Severe, 09/11/23) CRAB Uncoded Allergies: CRAB (Allergy, Severe, 08/06/17) Home Meds Active Scripts Acetaminophen (Tylenol) 325 Mg Tb, 650 MG PO TID PRN for 10 Days, #60 TAB Prov:MMEE JAIME MD 05/14/25 Apixaban Base (ELIQUIS) 5 Mg Tab, 5 MG PO BID for 30 Days, #60 TAB 1 Refill Prov:MEME JAIME MD 05/14/25 Atorvastatin Calcium (ATORVASTATIN CALCIUM) 40 Mg Tab, 1 TAB PO DAILY, #90 TAB 1 Refill Prov:MEME JAIME MD 05/14/25 Losartan Potassium (Losartan Potassium) 25 Mg Tab, 25 MG PO DAILY for 30 Days, #30 TAB 0 Refills Prov:MICAELA WRIGHT 04/21/25 Carvedilol (Carvedilol) 3.125 Mg Tab, 3.125 MG PO BID for 30 Days, #60 TAB 0 Refills Prov:MICAELA WRIGHT 04/21/25 Amiodarone HCl (Amiodarone HCl) 200 Mg Tab, 1 TAB PO BID for 30 Days, #60 TAB Prov:MICAELA WRIGHT 04/21/25 Spironolactone (Spironolactone) 25 Mg Tab, 1 TAB PO DAILY for 30 Days, #30 TAB Prov:MICAELA WRIGHT [facility] 04/21/25 Bumetanide (Bumetanide) 1 Mg Tab, 1 TAB PO DAILY for 30 Days, #30 TAB [facility] Aspirin (Aspirin Low Dose) 81 Mg Tab, 1 TAB PO DAILY for 30 Days, #30 TAB [facility] 04/21/25 Dapagliflozin Propanediol (Farxiga) 10 Mg Tab, 10 MG PO DAILY for 30 Days, #30 TAB Prov[facility] 04/21/25 Famotidine (PEPCID TABLET) 20 Mg Tb, 1 TAB PO BID for 30 Days, #60 TAB 0 Refills Prov:BRAIN LAI MD 03/07/25 Reported Medications Pantoprazole Sodium Sesquihydr (Pantoprazole Sodium) 40 Mg Tab, 1 TAB PO DAILY for 30 Days, #30 05/12/24 Cholecalciferol (VITAMIN D3) 2,000 Unit Tab, 1 TAB PO DAILY 01/09/24 Digoxin (Digoxin) 125 Mcg Tab, 1 TAB PO DAILY 01/09/24 Nitroglycerin (NTROSTAT SUBLINGUAL) 0.4 Mg Sl, 0.4 MG SL PRN, TAB *MAY REPEAT EVERY 5 MINUTES X 3 TOTAL IF NO RELIEF, INITIATE ANALGESIC THERAPY. NOTIFY PHYSICIAN *Do not crush. 05/15/23 Review of Systems Constitutional: denies: chills, diaphoresis, fatigue, fever, malaise, sweats, weakness, others EENTM: denies: blurred vision, double vision, ear bleeding, ear discharge, ear drainage, ear pain, ear ringing, eye pain, eye redness, hearing loss, mouth pain, mouth swelling, nasal discharge, nose bleeding, nose congestion, nose pain, photophobia, tearing, throat pain, throat swelling, voice changes, others Respiratory: reports: SOB at rest, shortness of breath; denies: cough, hemoptysis, orthopnea, SOB with excertion, stridor, wheezing, others Cardiovascular: reports: chest pain, edema; denies: dizzy spells, diaphoresis, Dyspnea on exertion, irregular heart beat, left arm pain, lightheadedness, palpitations, PND, syncope, others Gastrointestinal: denies: abdomen distended, abdominal pain, blood streaked bowels, constipated, diarrhea, dysphagia, difficulty swallowing, hematemesis, melena, nausea, poor appetite, poor fluid intake, rectal bleeding, rectal pain, vomiting, others Genitourinary: denies: burning, dysuria, flank pain, frequency, hematuria, incontinence, penile discharge, penile sore, pain, testicle pain, testicle swelling, urgency, others Neurological: denies: dizziness, fainting, headache, left sided numbness, left sided weakness, numbness, paresthesia, pre-existing deficit, right sided numbness, right sided weakness, seizure, speech problems, tingling, tremors, weakness, others Musculoskeletal: denies: back pain, gout, joint pain, joint swelling, muscle pain, muscle stiffness, neck pain, others Integumetry: denies: bruises, change in color, change in hair/nails, dryness, laceration, lesions, lumps, rash, wounds, others Allergic/Immunocompromised: denies: Difficulty Healing, Frequent Infections, Hives, Itching, others Hematologic/Lymphatic: denies: anemia, blood clots, easy bleeding, easy bruising, swollen glands, others Endocrine: denies: excessive hunger, excessive sweating, excessive thirst, excessive urination, flushing, intolerance to cold, intolerance to heat, unexplained weight gain, unexplained weight loss, others Psychiatric: denies: anxiety, bipolar disorder, depression, hopeless, panic disorder, schizophrenia, sleepless, suicidal, others Vital Signs Vital Signs Date Time Temp Pulse Resp B/P (MAP) Pulse Ox O2 Delivery O2 Flow Rate FiO2 05/23/25 21:40 90 20 112/80 05/23/25 19:45 99 Room Air* 0 21 05/23/25 19:45 97.8 97.8 Physical Exam GENERAL: Alert and oriented x 3. No acute distress. EYES: PERRL, EOMI. Anicteric. HENT: Moist mucous membranes. LUNGS: Clear to auscultation bilaterally. CARDIOVASCULAR: Regular rate and rhythm. ABDOMEN: Soft, nontender and nondistended. EXTREMITIES: No edema. NEUROLOGIC: No focal neurological deficits. SKIN: Warm, dry. Labs/Diagnostic Data Labs Test 05/23/25 19:19 05/23/25 19:00 Range/Units Troponin I High Sensitivity 25 </=54 ng/L White Blood Count 5.2 4.4-10.8 10^3/uL Red Blood Count 4.20 L 4.5-5.90 10^6/uL Hemoglobin 13.5 13.5-17.5 g/dL Hematocrit 39.9 L 41.0-53.0 % Mean Corpuscular Volume 95.0 80.0-100.0 fL Mean Corpuscular Hemoglobin 32.1 H 28.0-32.0 pg Mean Corpuscular Hemoglobin Concent 33.8 32.0-36.0 g/dL Red Cell Distribution Width 22.3 H 11.8-14.3 % Platelet Count 190 140-450 10^3/uL Mean Platelet Volume 7.5 6.9-10.8 fL Neutrophils (%) (Auto) 62.5 37.0-80.0 % Lymphocytes (%) (Auto) 15.2 10.0-50.0 % Monocytes (%) (Auto) 17.6 H 0.0-12.0 % Eosinophils (%) (Auto) 3.3 0.0-7.0 % Basophils (%) (Auto) 1.4 0.0-2.0 % Neutrophils # (Auto) 3.2 1.6-8.6 10 ^3/uL Lymphocytes # (Auto) 0.8 0.4-5.4 10 ^3/uL Monocytes # (Auto) 0.9 0-1.3 10 ^3/uL Eosinophils # (Auto) 0.2 0-0.8 10 ^3/uL Basophils # (Auto) 0.1 0-0.2 10 ^3/uL Nucleated Red Blood Cells 0.2 % Prothrombin Time 15.1 H 9.3-11.8 sec Prothrombin Time INR 1.48 H 0.9-1.15 Activated Partial Thromboplast Time 29.1 24.5-34.5 SEC Sodium Level 135 L 136-145 mmol/L Potassium Level 3.8 3.5-5.1 mmol/L Chloride Level 97 L 98-107 mmol/L Carbon Dioxide Level 24 20-31 mmol/L Anion Gap 14 5-15 Blood Urea Nitrogen 21 9-23 mg/dL Creatinine 1.19 0.700-1.30 mg/dL Glomerular Filtration Rate Calc 69 >90 mL/min BUN/Creatinine Ratio 17.6 10.0-20.0 Serum Glucose 91 74-106 mg/dL Calcium Level 9.2 8.7-10.4 mg/dL Total Bilirubin 6.1 H 0.2-1.0 mg/dL Aspartate Amino Transferase (AST) 50 H 13-40 U/L Alanine Aminotransferase (ALT) 41 H 7-40 U/L Alkaline Phosphatase 218 H 46-116 U/L Total Protein 7.0 5.7-8.2 g/dL Albumin 4.2 3.2-4.8 g/dL Assessment Chest pain. CHF. Diabetes mellitus. CAD. AFib. Dyslipidemia. Hypertension. Status post PTCA. Pacemaker. Plan/Recommendation I agree with your ongoing assessment and care of plan. Morphine for pain management. Additional plan as per the hospital course. A total of 45 minutes was spent reviewing the patient record, examining the patient, making a diagnostic and therapeutic plan, discussing this plan with medical personnel, following up on diagnostic studies and following the patient for clinical stability excluding any and all procedures. At least 50% of this time was spent in direct, [id number] contact. Plan discussed with: Patient CHAITANYA CULP MD May 23, 2025 21:56
[2025-05-24] VITALS (8 sets, daily range): BP systolic 90–114; BP diastolic 59–91; PULSE 67–96; RESP 17–20; TEMP 96.6–98.1; O2SAT 93–100
[2025-05-24] MEDS ORDERED: NITROGLYCERIN 0.4 MG SL TAB SL PRN (00:15)
[2025-05-24] MEDS ORDERED: MORPHINE SULFATE INJ 2 MG/ml SYRG IV PRN (00:15)
--- NOTE | 2025-05-24 00:35 | DVHHPRES ---
History of Present Illness Resident Creating Document: ESTEVAN BRAN History of Present Illness Slava Ruvalcaba is a 65-year-old male patient who presented to the emergency department with the chief complaint of ICD shock with posterior stabbing retrosternal chest pain and dyspnea in functional class IV that occurred during the am of 05/23/2025, since chest pain persisted for over 10 hours, and patient ran out of nitroglycerine, he decided to present to the ED. Chest pain increases with movements and with palpation and did not improve with nitroglycerine. Patient reports compliance to all his heart failure medication. Denies any other associated symptoms. Past medical history: Hypertension, dyslipidemia, diabetes, non-ischemic toxic dilated cardiomyopathy HFrEF (LVEF 6%) status post BATTER OUT-D placement in 2018 (biotronik) with history of broken BATTER OUT lead, severe pulmonary hypertension, severe MR, paroxysmal atrial fibrillation (chads Vasc 4/has bled2) currently on Apixaban and Amiodarone, history of V-tach, former polysubstance abuse and medical noncompliance. Coronary artery disease status post PCI with four stent placement. Liver cirrhosis. Per patient evaluated in [place], he is in alcohol due to his clinical past medical history (liver cirrhosis, HFrEF) not a good candidate for lead replacement nor heart transplant. Past Surgical History: BATTER OUT-D in 2018 and PCI with stent placement. Last coronary angiography on 09/2021 with nonobstructive coronary artery disease Family History: Diabetes, heart disease, hypertension in mother and uncle. Social History: Lives in [place] alone ([place] niece Audra). Remote history of multiple substance use when young (he has been clean for more than 30 years). Garner current tobacco, alcohol and other drug abuse. Allergic history: Crab, Shelfish Home medication: Digoxin, losartan, spironolactone, bumetanide, Farxiga, carvedilol, aspirin, atorvastatin, Tylenol, famotidine, nitroglycerin, vitamin-D Patient seen and examined at bedside. Currently has no new complaints. Past Medical History Per HPI Past Surgical History Per HPI Family History Per HPI Past Social History Per HPI Review of Systems Review of Systems Per HPI Allergies: Coded Allergies: Shellfish Allergy (Unverified Allergy, Severe, 09/11/23) CRAB Uncoded Allergies: CRAB (Allergy, Severe, 08/06/17) Exam Vital Signs Vital Signs Date Time Temp Pulse Resp B/P (MAP) Pulse Ox O2 Delivery O2 Flow Rate FiO2 05/23/25 21:40 90 20 112/80 05/23/25 21:30 100 05/23/25 19:45 Room Air* 0 21 05/23/25 19:45 97.8 97.8 Exam Patient lying in bed, in no acute distress General: Lucid, afebrile, mucosae are moist Cardiovascular: Normal S1 and S2. Holosystolic murmur best heard in apex which radiates towards axilla intensity 5/6. No gallops or rubs. Cardiac generator in left subclavian area with no erythema no signs of infection. Respiratory: Normal ventilation mechanics. Clear lung sounds on auscultation Abdomen: Soft, nontender, no organomegaly, normal bowel sounds MSK/skin: Mobilizes 4 limbs. Skin is dry and warm Neurological: Oriented in 3 spheres. No motor no sensitive deficits. Pupils are isocoric and reactive Labs/Xrays Labs Test 05/23/25 21:58 05/23/25 19:00 Range/Units Troponin I High Sensitivity 27 </=54 ng/L White Blood Count 5.2 4.4-10.8 10^3/uL Red Blood Count 4.20 L 4.5-5.90 10^6/uL Hemoglobin 13.5 13.5-17.5 g/dL Hematocrit 39.9 L 41.0-53.0 % Mean Corpuscular Volume 95.0 80.0-100.0 fL Mean Corpuscular Hemoglobin 32.1 H 28.0-32.0 pg Mean Corpuscular Hemoglobin Concent 33.8 32.0-36.0 g/dL Red Cell Distribution Width 22.3 H 11.8-14.3 % Platelet Count 190 140-450 10^3/uL Mean Platelet Volume 7.5 6.9-10.8 fL Neutrophils (%) (Auto) 62.5 37.0-80.0 % Lymphocytes (%) (Auto) 15.2 10.0-50.0 % Monocytes (%) (Auto) 17.6 H 0.0-12.0 % Eosinophils (%) (Auto) 3.3 0.0-7.0 % Basophils (%) (Auto) 1.4 0.0-2.0 % Neutrophils # (Auto) 3.2 1.6-8.6 10 ^3/uL Lymphocytes # (Auto) 0.8 0.4-5.4 10 ^3/uL Monocytes # (Auto) 0.9 0-1.3 10 ^3/uL Eosinophils # (Auto) 0.2 0-0.8 10 ^3/uL Basophils # (Auto) 0.1 0-0.2 10 ^3/uL Nucleated Red Blood Cells 0.2 % Prothrombin Time 15.1 H 9.3-11.8 sec Prothrombin Time INR 1.48 H 0.9-1.15 Activated Partial Thromboplast Time 29.1 24.5-34.5 SEC Sodium Level 135 L 136-145 mmol/L Potassium Level 3.8 3.5-5.1 mmol/L Chloride Level 97 L 98-107 mmol/L Carbon Dioxide Level 24 20-31 mmol/L Anion Gap 14 5-15 Blood Urea Nitrogen 21 9-23 mg/dL Creatinine 1.19 0.700-1.30 mg/dL Glomerular Filtration Rate Calc 69 >90 mL/min BUN/Creatinine Ratio 17.6 10.0-20.0 Serum Glucose 91 74-106 mg/dL Calcium Level 9.2 8.7-10.4 mg/dL Total Bilirubin 6.1 H 0.2-1.0 mg/dL Aspartate Amino Transferase (AST) 50 H 13-40 U/L Alanine Aminotransferase (ALT) 41 H 7-40 U/L Alkaline Phosphatase 218 H 46-116 U/L Total Protein 7.0 5.7-8.2 g/dL Albumin 4.2 3.2-4.8 g/dL SEPSIS Sepsis Screen Date sepsis recognized/suspect: May 23, 2025 Time Sepsis recognized/suspect: 1899 Recent Procedure: No On Antibiotic Therapy: No Respiratory Rate >20: No Heart Rate >90: No Temp<36 C (96.8 F) or >38.3 C: No SBP <90 or MAP <65 mmHG: No New Acute Mental Status Change: No Is the patient on CPAP, BIPAP,: No Physician Orders Electrocardigram (05/23/25 19:05) Electrocardigram (05/23/25 20:05) Electrocardigram (05/23/25 22:05) Chest Xray 1 View (05/23/25 19:05) Admit (05/24/25 00:12) Code Status (05/24/25 00:12) Ondansetron Hcl (Zofran) (05/24/25 00:15) Complete Blood Count (05/24/25 04:00) Comprehensive Metabolic Panel (05/24/25 04:00) Cardiac Diet-2gna,Lofat,Lochol (05/24/25 Breakfast) Morphine Sulfate Injection (05/24/25 00:15) Oxygen By Nasal Cannula (05/24/25 00:12) Stat Ekg For Chest Pain (05/24/25 00:12) Notify Md Of Changes From Base (05/24/25 00:12) Post Form Remover For 24 Hours (05/24/25 00:12) Emergency Dysrhythmia Protocol (05/24/25 00:12) Rhythm Strips Once Every Shift (05/24/25 00:12) Morphine Sulfate Injection (05/24/25 00:15) Nitroglycerin Sublingual (Ntrostat Subli (05/24/25 00:15) Amiodarone Tablet (Cordarone Tablet) (05/24/25 10:00) Aspirin Enteric Coated Tablet (Ecotrin E (05/24/25 10:00) Bumetanide Tablet (Bumex Tablet) (05/24/25 10:00) Carvedilol Tablet (Coreg Tablet) (05/24/25 10:00) Digoxin Tablet (Lanoxin Tablet) (05/24/25 10:00) Famotidine Tablet (Pepcid Tablet) (05/24/25 10:00) Losartan Tablet (Cozaar Tablet) (05/24/25 10:00) Pantoprazole Tablet (Protonix Tablet) (05/24/25 10:00) Spironolactone (Aldactone) (05/24/25 10:00) (Nf) Atorvastatin Calcium (05/24/25 10:00) (Nf) Cholecalciferol (Vitamin D3) (05/24/25 10:00) (Nf) Dapagliflozin Propanediol (Farxiga) (05/24/25 10:00) Enoxaparin Sodium (Lovenox) (05/24/25 10:00) Vital Signs Date Time Temp Pulse Resp B/P (MAP) Pulse Ox O2 Delivery O2 Flow Rate FiO2 05/23/25 21:40 90 20 112/80 05/23/25 21:30 93 22 112/81 (91) 100 05/23/25 20:29 103 05/23/25 19:45 30 99 Room Air* 0 21 05/23/25 19:45 97.8 98 30 115/81 (92) 99 97.8 05/23/25 19:14 97.7 94 17 115/81 (92) 99 97.7 05/23/25 19:09 97 05/23/25 18:39 98.2 16 116/89 97 98.2 05/23/25 18:37 103 Laboratory Tests Test 05/23/25 19:00 White Blood Count 5.2 10^3/uL (4.4-10.8) Medications Medications Dose Ordered Sig/Brian Route Start Time Stop Time Status Last Admin Dose Admin Morphine Sulfate 4 mg ONCE ONCE IV 05/23/25 21:30 05/23/25 21:31 DC 05/23/25 21:40 4 MG Assessment/Plan Assessment/Plan ASSESSMENT ICD shock Rule out cardiac arrhythmias Rule out ACS Chronic systolic congestive heart failure (HFrEF, LVEF 6%), not decompensated - status post BATTER OUT-D with fractured BATTER OUT lead End-stage nonischemic dilated cardiomyopathy Severe mitral regurgitation Pulmonary hypertension (RVSP 52 mmHg) History of V-tach - on p.o. amiodarone Dilutional hyponatremia History of CAD status post 4 JAMEL Liver cirrhosis uncertain etiology (probably secondary to congestive heart failure) Transaminitis - Improving Diabetes non insulin dependent - pending hemoglobin A1c Paroxysmal atrial fibrillation (CHADS2 Vasc score 4/ HASBLED 2) secondary hypercoagulability state Hypertension Hyperlipidemia Former polysubstance dependence and medical noncompliance PLAN Patient admitted to telemetry. EKG shows sinus rhythm with ventricularly paced with image of LBBB. Troponin level negative (28-20 5-27) Ordered cardiac device interrogation ([place]) Last echocardiogram completed on 12/2024: Remarkably dilated cardiac chambers, severe diffuse hypokinesis, LVEF 6%, severe MR, severe pulmonary hypertension (RVSP 52 mmHg). Continue p.o. amiodarone Ordered abdominal US. Last coronary angiography on 09/2021 which showed nonobstructive coronary arteries. Cardiology was consulted Ordered magnesium. Goal should be above 2 mg/dL Replenish potassium to obtain level above 4 mEq/L Goals of care discussed with patient for over 18 minutes: Full code status Discussed plan with Dr. Llamas, patient and nurses: Admit patient to telemetry. Cardiology consulted, ordered cardiac device assessment to evaluate presence of arrhythmias. Continue GDM T. Patient has poor prognosis due to past medical history, nonsurgical candidate for heart transplant nor lead replacement (evaluated in [place] previously). Plan discussed with: Patient, Other (Nurses and Niece (Audra)) My Orders Orders - ESTEVAN BRAN RESIDENT Procedure Category Date Status Time Admit ADMIT 05/24/25 Transmitted 00:12 Code Status CODE 05/24/25 Transmitted 00:12 Ondansetron Hcl PHA 05/24/25 Transmitted (Zofran) 00:15 Complete Blood Count LAB 05/24/25 Transmitted 04:00 Comprehensive LAB 05/24/25 Transmitted Metabolic Panel 04:00 Cardiac DIET 05/24/25 Transmitted Diet-2gna,Lofat,Lochol Breakfast Morphine Sulfate PHA 05/24/25 Verified Injection 00:15 Oxygen By Nasal RT 05/24/25 Verified Cannula 00:12 Stat Ekg For Chest [facility] 05/24/25 Verified Pain 00:12 Notify Md Of Changes [facility] 05/24/25 Verified From Base 00:12 Post Form Remover For [facility] 05/24/25 Verified 24 Hours 00:12 Emergency Dysrhythmia JIMMIE 05/24/25 Verified Protocol 00:12 Rhythm Strips Once JIMMIE 05/24/25 Verified Every Shift 00:12 Morphine Sulfate PHA 05/24/25 Verified Injection 00:15 Nitroglycerin PHA 05/24/25 Verified Sublingual (Ntrostat 00:15 Amiodarone Tablet PHA 05/24/25 Verified (Cordarone Tablet) 10:00 Aspirin Enteric PHA 05/24/25 Verified Coated Tablet 10:00 Bumetanide Tablet PHA 05/24/25 Verified (Bumex Tablet) 10:00 Carvedilol Tablet PHA 05/24/25 Verified (Coreg Tablet) 10:00 Digoxin Tablet PHA 05/24/25 Verified (Lanoxin Tablet) 10:00 Famotidine Tablet PHA 05/24/25 Verified (Pepcid Tablet) 10:00 Losartan Tablet PHA 05/24/25 Verified (Cozaar Tablet) 10:00 Pantoprazole Tablet PHA 05/24/25 Verified (Protonix Tablet) 10:00 Spironolactone PHA 05/24/25 Verified (Aldactone) 10:00 (Nf) Atorvastatin PHA 05/24/25 Verified Calcium 10:00 (Nf) Cholecalciferol PHA 05/24/25 Verified (Vitamin D3) 10:00 (Nf) Dapagliflozin PHA 05/24/25 Verified Propanediol (Farxiga) 10:00 Enoxaparin Sodium PHA 05/24/25 Verified (Lovenox) 10:00 Date of Service: May 24, 2025 Billing Provider: DUYEN LLAMAS MD Common Visit Codes: 53157-QMJJPSW INP/OBS CARE (HIGH) Secondary Visit Codes: [id number] CARE PLAN 30 MINUTES ESTEVAN BRAN RESIDENT May 24, 2025 00:35
[2025-05-24] MEDS: ONDANSETRON HCL 4 MG/2 ML VIAL IV PRN (00:53)
[2025-05-24] MEDS: MORPHINE SULFATE INJ 2 MG/ml SYRG IV PRN (01:03)
[2025-05-24 02:18] LABS: Hematocrit 40.2 % (41.0-53.0); Hemoglobin 13.6 g/dL (13.5-17.5); Mean Corpuscular Hemoglobin 31.8 pg (28.0-32.0); Mean Corpuscular Volume 93.9 fL (80.0-100.0); Nucleated Red Blood Cells % 0.2 %
[2025-05-24 02:23] LABS: Triglycerides 59.0 mg/dL (< 150)
[2025-05-24 02:24] LABS: Magnesium 1.9 mg/dL (1.6-2.6)
[2025-05-24 02:25] LABS: Cholesterol 111.0 mg/dL (< 200)
[2025-05-24 02:26] LABS: HDL Cholesterol 25.0 mg/dL (40-59)
[2025-05-24 02:34] LABS: Lipase 27 U/L (12-53)
[2025-05-24 02:38] LABS: Alanine Aminotransferase 39 U/L (7-40); Albumin 4.1 g/dL (3.2-4.8); Alkaline Phosphatase 204 U/L (46-116); Anion Gap 12 (5-15); BUN/Creatinine Ratio 19.3 (10.0-20.0); Blood Urea Nitrogen 22 mg/dL (9-23); Calcium 9.4 mg/dL (8.7-10.4); Carbon Dioxide 25 mmol/L (20-31); Chloride 98 mmol/L (98-107); Glucose 84 mg/dL (74-106); Potassium 3.5 mmol/L (3.5-5.1); Sodium 135 mmol/L (136-145); Total Protein 6.6 g/dL (5.7-8.2)
[2025-05-24 02:40] LABS: Bilirubin, Total 6.1 mg/dL (0.2-1.0)
[2025-05-24] MEDS: POTASSIUM EFFERVESENT TAB 25 MEQ PO ONE (02:41)
[2025-05-24] MEDS: ATORVASTATIN 20 MG TAB PO SCH (09:59)
[2025-05-24] MEDS: AMIODARONE HCL 200 MG TAB PO SCH (09:59)
[2025-05-24] MEDS: ENOXAPARIN SOD 100 MG/1 ML SYRINGE SC SCH (10:00)
[2025-05-24] MEDS ORDERED: PATIENTS OWN MEDICATION (Cholecalciferol (Vitamin D3) 1 TAB) PO SCH (10:00)
[2025-05-24] MEDS: FAMOTIDINE 20 MG TAB PO SCH (10:00)
[2025-05-24] MEDS ORDERED: PATIENTS OWN MEDICATION (Atorvastatin Calcium 1 TAB) PO SCH (10:00)
[2025-05-24] MEDS: ASPirin-EC 81 mg tab PO SCH (10:00)
[2025-05-24] MEDS: PANTOPRAZOLE 40 MG TAB PO SCH (10:00)
[2025-05-24] MEDS: CARVEDILOL 3.125 MG TAB PO SCH (10:01)
[2025-05-24] MEDS: CHOLECALCIFEROL (VITD3) 1,000UNIT=25mCg TAB PO SCH (10:01)
[2025-05-24] MEDS: DIGOXIN 0.125 MG TAB PO SCH (10:02)
[2025-05-24] MEDS: LOSARTAN POTASSIUM 25 MG TAB PO SCH (10:03)
[2025-05-24] MEDS: SPIRONOLACTONE 25 MG TAB PO SCH (10:03)
[2025-05-24] MEDS: BUMETANIDE 1 MG TAB PO SCH (10:03)
[2025-05-24 11:05] LABS: Urine Protein, UAD 1+ (Negative)
[2025-05-24 11:10] LABS: Opiate Scree,Urine Pos (NEGATIVE)
[2025-05-24 11:18] LABS: Amphetamine Screen, Urine Neg (NEGATIVE); Barbiturate Scree,Urine Neg (NEGATIVE); Benzodiazephine Screen, Urine Neg (NEGATIVE); Cannabinoid Screen, Urine Pos (NEGATIVE); Cocaine Screen, Urine Neg (NEGATIVE); Phencyclidine Screen, Urine Neg (NEGATIVE)
--- NOTE | 2025-05-24 11:19 | DVHPNRES ---
Progress Note Date Seen: May 24, 2025 Resident Creating Document: EVELINE MARTINEZ RESIDENT Medical Necessity Reason Pt with a Central, PICC or Fol: No Subjective Review of Systems Slava Ruvalcaba is a 65-year-old male patient who presented to the emergency department with the chief complaint of ICD shock with posterior stabbing retrosternal chest pain and dyspnea in functional class IV that occurred during the am of 05/23/2025, since chest pain persisted for over 10 hours, and patient ran out of nitroglycerine, he decided to present to the ED. Chest pain increases with movements and with palpation and did not improve with nitroglycerine. Patient reports compliance to all his heart failure medication. Denies any other associated symptoms. Past medical history: Hypertension, dyslipidemia, diabetes, non-ischemic toxic dilated cardiomyopathy HFrEF (LVEF 6%) status post MAGNETO ELECTRICIAN-D placement in 2018 ([employer]) with history of broken MAGNETO ELECTRICIAN lead, severe pulmonary hypertension, severe MR, paroxysmal atrial fibrillation (chads Vasc 4/has bled2) currently on Apixaban and Amiodarone, history of V-tach, former polysubstance abuse and medical noncompliance. Coronary artery disease status post PCI with four stent placement. Liver cirrhosis. Per patient evaluated in [place], he is in alcohol due to his clinical past medical history (liver cirrhosis, HFrEF) not a good candidate for lead replacement nor heart transplant. Past Surgical History: MAGNETO ELECTRICIAN-D in 2018 and PCI with stent placement. Last coronary angiography on 09/2021 with nonobstructive coronary artery disease Family History: Diabetes, heart disease, hypertension in mother and uncle. Social History: Lives in [place] alone ([place] niece Audra). Remote history of multiple substance use when young (he has been clean for more than 30 years). Denies current tobacco, alcohol and other drug abuse. Allergic history: Crab, Shelfish Home medication: Digoxin, losartan, spironolactone, bumetanide, Farxiga, carvedilol, aspirin, atorvastatin, Tylenol, famotidine, nitroglycerin, vitamin-D Patient seen and examined at bedside. oriented x3 and on 5 L oxygen nasal cannula saturating 97%. complaint of lightheadedness after taking antihypertensive medication in the morning, shortness of breath then increase the oxygen to 5 L. Contacted with [employer] and mentioned they will do the interrogation tomorrow morning. Constitutional: No: Fever, Chills, Sweats, Weakness, Malaise, Other Eyes: No: Pain, Vision change, Conjunctivae inflammation, Eyelid inflammation, Other, Redness ENT: No: Ear pain, Ear discharge, Nose pain, Nose discharge, Nose congestion, Mouth pain, Mouth swelling, Throat pain, Throat swelling, Other Respiratory: Shortness of breath, No: Cough, Dry,Wheezing, Hemoptysis, Pleuritic Pain, Sputum, Wheezing, Other Cardiovascular: Chest Pain, Lt Headedness, Palpitations, Orthopnea, Paroxysmal Noc. Dyspnea, Edema, Other Gastrointestinal: No: Nausea, Vomiting, Abdominal Pain, Diarrhea, Constipation, Melena, Hematochezia, Other Musculoskeletal: No: other, neck pain, shoulder pain, arm pain, back pain, hand pain, leg pain, foot pain Neurological:; No: Weakness, Numbness, Incoordination, Change in speech, Confusion, Seizures Objective vital signs Vital Sign Date Time Temp Pulse Resp B/P (MAP) Pulse Ox O2 Delivery O2 Flow Rate FiO2 05/24/25 10:07 84 20 122/77 05/24/25 08:47 97.5 100 97.5 05/24/25 04:30 Nasal Cannula* 2 28 Total Intake and Output 05/23/25 05/23/25 05/24/25 15:00 23:00 07:00 Intake Total 900 ml Balance 900 ml medications Current Medications Medications Dose Ordered Sig/Brian Route Start Time Stop Time Status Last Admin Dose Admin Ondansetron HCl 4 mg Q4HP PRN IV 05/24/25 00:15 05/24/25 10:06 4 MG Morphine Sulfate 2 mg Q4HPRN PRN IV 05/24/25 00:15 05/24/25 10:07 2 MG Morphine Sulfate 2 mg Q30M PRN IV 05/24/25 00:15 Nitroglycerin 0.4 mg Q5MINP PRN SL 05/24/25 00:15 Amiodarone HCl 200 mg BID PO 05/24/25 10:00 05/24/25 09:59 200 MG Aspirin 81 mg DAILY PO 05/24/25 10:00 05/24/25 10:00 81 MG Bumetanide 1 mg DAILY PO 05/24/25 10:00 05/24/25 10:03 1 MG Carvedilol 3.125 mg BID PO 05/24/25 10:00 05/24/25 10:01 3.125 MG Digoxin 0.125 mg DAILY PO 05/24/25 10:00 05/24/25 10:02 0.125 MG Famotidine 20 mg BID PO 05/24/25 10:00 05/24/25 10:00 20 MG Losartan Potassium 25 mg DAILY PO 05/24/25 10:00 05/24/25 10:03 25 MG Pantoprazole Sodium 40 mg DAILY PO 05/24/25 10:00 05/24/25 10:00 40 MG Spironolactone 25 mg DAILY PO 05/24/25 10:00 05/24/25 10:03 25 MG Patient Own Medication 10 mg DAILY PO 05/24/25 10:00 Enoxaparin Sodium 90 mg Q12HR SC 05/24/25 10:00 Atorvastatin Calcium 40 mg DAILY PO 05/24/25 10:00 05/24/25 09:59 40 MG Cholecalciferol 2,000 unit DAILY PO 05/24/25 10:00 05/24/25 10:01 2,000 UNIT Examination Physical examination: General Appearance: Alert, Oriented X3, Cooperative, No acute distress HEENT: Atraumatic, PERRLA, EOMI, Mucous membrane moist/pink Respiratory: bilateral fine crackles Cardiovascular: Regular rate, Normal S1, Normal S2, No murmurs, no chest wall tenderness Abdominal: Normal bowel sounds, Soft, No tenderness, No hepatospenomegaly, No masses Extremities: No clubbing, No cyanosis, No edema, Normal pulses, No tenderness/swelling Skin: No rashes, No breakdown, No significant lesion Neuro: Normal gait, Normal speech, Strength at 5/5 X4 ext, Normal tone, Sensation intact, Cranial nerves 3-12 NL, Reflexes 2+ Psych/Mental Status: Mental status NL, Mood NL laboratory and microbiology Laboratory Tests 05/24/25 01:39 Test 05/24/25 01:39 Range/Units Serum Glucose 84 74-106 mg/dL Labs and/or images reviewed: Labs reviewed by me, Image(s) reviewed by me Problem List/Assessment/Plan Problem List/Assessment/Plan Assessment and plan # Acute on chronic hypoxic respiratory failure secondary to CHF # ICD shock # chest pain, rule out ACS # rule out arrhythmia # chronic systolic heart failure with reduced ejection fraction 6%, status post MAGNETO ELECTRICIAN- D with fracture MAGNETO ELECTRICIAN lead # End-stage nonischemic dilated cardiomyopathy # History of CAD, status post PTCA x4 # severe mitral regurgitation # pulmonary hypertension( RVSP 52 mm Hg) # paroxysmal atrial fibrillation with secondary hypercoagulable state # Transaminitis and hyperbilirubinemia likely secondary to liver cirrhosis possibly due to hepatic congestion # Hypertensive heart disease # Hyperlipidemia # History of methamphetamine abuse - EKG shows sinus rhythm with ventricularly paced with image of LBBB. Troponin level negative (12-16) - CXR showed pulmonary vascular congestion - Last echocardiogram completed on 12/2024: Remarkably dilated cardiac chambers, severe diffuse hypokinesis, LVEF 6%, severe MR, severe pulmonary hypertension (RVSP 52 mmHg). - Last coronary angiography on 09/2021 which showed nonobstructive coronary arteries - Maintain potassium above 4 and magnesium above 2 - Continue amiodarone 200 mg p.o. daily, losartan 25 mg daily, carvedilol 3.125 mg b.i.d., spironolactone 25 mg daily , digoxin 0.125 mg daily, Bumex 1 mg daily, Lovenox 1 mg / kg body weight b.i.d. - cardiology on board. - contacted with [employer] and possible pacemaker interrogation tomorrow # possible euthyroid sick syndrome - TSH is low, ordered T3 and T4 # DVT prophylaxis - Patient is on Lovenox Goal of care discussed with the patient for more than 20 minutes full code Plan discussed with Dr. Sullivan Plan discussed with: Patient, Other (RN) My Orders My Orders Orders - EVELINE MARTINEZ Procedure Category Date Status Time Free T3 LAB 05/24/25 In Process 08:31 Free T4 (Free LAB 05/24/25 In Process Thyroxine) 08:31 Ammonia LAB 05/24/25 Transmitted 11:16 Date of Service: May 24, 2025 Billing Provider: JACINTO SULLIVAN MD Common Visit Codes: [id number] INP/OBS CARE(HIGH) EVELINE MARTINEZ May 24, 2025 11:19 JACINTO SULLIVAN MD May 24, 2025 22:38
--- NOTE | 2025-05-24 12:09 | DVH ---
INDICATION: transaminitis TECHNIQUE: Multiple real-time sonographic images of the abdomen were obtained. COMPARISON: US LIVER on DOS: 04/20/25, US ABDOMEN LIMITED on DOS: 04/06/25, US ABDOMEN LIMITED on DOS: 03/25/25 FINDINGS: Study limited by patient's inability or lack of willingness to old. Hepatic parenchyma suggesting steatosis The liver measures 15.2 cm. No intrahepatic biliary ductal d ilatation is noted. The gallbladder wall measures 0.61 cm and is thickened. No gallstones or sludge is seen. The commo n duct measures 0.53 cm and is unremarkable. No pericholecystic fluid is noted. The right kidney measures 10.9 cm. No hydronephrosis. The pancreas is not well visualized due to obscuration from bowel gas. IMPRESSION: 1. Limited study 2. Thickened gallbladder wall negative sonographic Bishop's sign, thickened gallbladder wall no cholelithiasis.
[2025-05-24] MEDS: HYDROcodone-ACET 5/325MG TAB PO PRN (15:40)
[2025-05-24] MEDS: SODIUM CHLORIDE 0.9% 250 ML IV ONE (20:00)
[2025-05-24] MEDS: MELATONIN 5 MG TAB PO ONE (21:27)
--- NOTE | 2025-05-24 23:01 | DVHPN2 ---
Progress Note - Dictate Date Seen: May 24, 2025 Medical Necessity Reason Pt with a Central, PICC or Fol: No Subjective Patient was seen and evaluated in follow up. Per Mario from [employer], they will be here tomorrow morning to interrogate the patient's pacemaker. Gallbladder US shows thickened gallbladder wall negative sonographic Bishop's sign, thickened gallbladder wall no cholelithiasis. Telemetry reviewed. vital signs Vital Sign Date Time Temp Pulse Resp B/P (MAP) Pulse Ox O2 Delivery O2 Flow Rate FiO2 05/24/25 13:00 98.1 79 17 107/78 (88) 93 98.1 05/24/25 08:00 Room Air* 0 21 Total Intake and Output 05/23/25 05/23/25 05/24/25 15:00 23:00 07:00 Intake Total 900 ml Balance 900 ml medications Current Medications Medications Dose Ordered Sig/Brian Route Start Time Stop Time Status Last Admin Dose Admin Ondansetron HCl 4 mg Q4HP PRN IV 05/24/25 00:15 05/24/25 10:06 4 MG Morphine Sulfate 2 mg Q4HPRN PRN IV 05/24/25 00:15 05/24/25 10:07 2 MG Morphine Sulfate 2 mg Q30M PRN IV 05/24/25 00:15 Nitroglycerin 0.4 mg Q5MINP PRN SL 05/24/25 00:15 Amiodarone HCl 200 mg BID PO 05/24/25 10:00 05/24/25 09:59 200 MG Aspirin 81 mg DAILY PO 05/24/25 10:00 05/24/25 10:00 81 MG Bumetanide 1 mg DAILY PO 05/24/25 10:00 05/24/25 10:03 1 MG Carvedilol 3.125 mg BID PO 05/24/25 10:00 05/24/25 10:01 3.125 MG Digoxin 0.125 mg DAILY PO 05/24/25 10:00 05/24/25 10:02 0.125 MG Famotidine 20 mg BID PO 05/24/25 10:00 05/24/25 10:00 20 MG Losartan Potassium 25 mg DAILY PO 05/24/25 10:00 05/24/25 10:03 25 MG Pantoprazole Sodium 40 mg DAILY PO 05/24/25 10:00 05/24/25 10:00 40 MG Spironolactone 25 mg DAILY PO 05/24/25 10:00 05/24/25 10:03 25 MG Patient Own Medication 10 mg DAILY PO 05/24/25 10:00 Enoxaparin Sodium 90 mg Q12HR SC 05/24/25 10:00 Atorvastatin Calcium 40 mg DAILY PO 05/24/25 10:00 05/24/25 09:59 40 MG Cholecalciferol 2,000 unit DAILY PO 05/24/25 10:00 05/24/25 10:01 2,000 UNIT objective GENERAL: Alert and oriented x 3. No acute distress. EYES: PERRL, EOMI. Anicteric. HENT: Moist mucous membranes. LUNGS: Clear to auscultation bilaterally. CARDIOVASCULAR: Regular rate and rhythm. ABDOMEN: Soft, nontender and nondistended. EXTREMITIES: No edema. NEUROLOGIC: No focal neurological deficits. SKIN: Warm, dry. laboratory and microbiology Laboratory Tests 05/24/25 01:39 Test 05/24/25 01:39 Range/Units Serum Glucose 84 74-106 mg/dL Problem List Chest pain. CHF. Diabetes mellitus. CAD. AFib. Dyslipidemia. Hypertension. Status post PTCA. Pacemaker. Assessment/Plan Continued all current supportive medical care. Aspirin, Lipitor. Losartan, Coreg. Amiodarone. Diuretics with Bumex. Morphine for pain management. Additional plan as per the hospital course. Plan discussed with: Patient CHAITANYA CULP MD May 24, 2025 14:26
[2025-05-25] VITALS (8 sets, daily range): BP systolic 90–107; BP diastolic 57–74; PULSE 67–78; RESP 17–20; TEMP 96.7–97.9; O2SAT 96–99
[2025-05-25 06:55] LABS: Hematocrit 33.2 % (41.0-53.0); Hemoglobin 11.4 g/dL (13.5-17.5); Mean Corpuscular Hemoglobin 32.2 pg (28.0-32.0); Mean Corpuscular Volume 93.6 fL (80.0-100.0); Nucleated Red Blood Cells % 0.1 %
[2025-05-25 07:14] LABS: Anion Gap 7 (5-15); Carbon Dioxide 29 mmol/L (20-31); Potassium 3.6 mmol/L (3.5-5.1)
[2025-05-25 07:15] LABS: Chloride 97 mmol/L (98-107); Sodium 133 mmol/L (136-145)
[2025-05-25 07:16] LABS: Calcium 8.5 mg/dL (8.7-10.4)
[2025-05-25 07:20] LABS: BUN/Creatinine Ratio 16.7 (10.0-20.0); Blood Urea Nitrogen 18 mg/dL (9-23); Glucose 77 mg/dL (74-106)
--- NOTE | 2025-05-25 07:33 | ECG ---
[facility] Test Date: 2025-05-24 Test Time: 19:21:55 Pat Name: SUHAIL VILLALTA Department: Room: 0274T B Gender: M Bar Pilot: hernandez : 1960 Requested By: CHAITANYA CULP Order Number: [id number] Reading MD: Adrián Mock Measurements Intervals [place] Rate: 73 P: 72 CT: 208 QRS: -79 QRSD: 169 T: 94 QT: 478 QTc: 527 Interpretive Statements Sinus rhythm Nonspecific IVCD with LAD Consider anterolateral infarct Abnormal T, consider ischemia, lateral leads Electronically Signed On 05-26-2025 13:08:26 PST by Adrián Mock Please click the below link to view image of tracing.
[2025-05-25 10:48] LABS: Hepatitis B Surface Antigen Negative (Negative)
[2025-05-25 10:59] LABS: Hepatitis C Antibody Negative (Negative)
--- NOTE | 2025-05-25 11:43 | DVHPNRES ---
Progress Note Date Seen: May 25, 2025 Resident Creating Document: KENTON CARBALLO RESIDENT Has the PT tested + for MRSA If YES, has PT been informed?: No Medical Necessity Reason Pt with a Central, PICC or Fol: No Subjective Review of Systems Slava Aparicio is a 65-year-old male, with past medical history of Hypertension, dyslipidemia, DM2, CHF (HFrEF, LVEF 6%) PRINCIPAL MECHANICAL ENGINEER-D placement in 2018 ([employer]). The patient came to [facility] with the chief complaint of 10hrs of chest pain, 6/10, retrosternal, pressure-like pain, that started right after feeling a "ICD shock" without irradiation, the chest pain increases with movements and with palpation and did not improve with nitroglycerine. Associated with shortness of breath and dizziness. The patient reported he ran out of nitroglycerine, and due to persistence of symptoms he decided to visit the ED. The patient reports compliance to all his heart failure medication. The patient denies lightheadedness, palpitation, syncope, fever, chills, nausea or vomit. The patient was admitted for further assessment with [employer] interrogation and management. Past medical history: Hypertension, dyslipidemia, diabetes, non-ischemic toxic dilated cardiomyopathy HFrEF (LVEF 6%) status post PRINCIPAL MECHANICAL ENGINEER-D placement in 2018 ([employer]) with history of broken PRINCIPAL MECHANICAL ENGINEER lead, severe pulmonary hypertension, severe MR, paroxysmal atrial fibrillation (chads Vasc 4/has bled2) currently on Apixaban and Amiodarone, history of V-tach, former polysubstance abuse and medical noncompliance. Coronary artery disease status post PCI with four stent placement. Liver cirrhosis. Per patient evaluated in [place], he is in alcohol due to his clinical past medical history (liver cirrhosis, HFrEF) not a good candidate for lead replacement nor heart transplant. Past Surgical History: PRINCIPAL MECHANICAL ENGINEER-D in 2018 and PCI with stent placement. Last coronary angiography on 09/2021 with nonobstructive coronary artery disease Family History: Diabetes, heart disease, hypertension in mother and uncle. Social History: Lives in [place] alone ([place] niece Audra). Remote history of multiple substance use when young (he has been clean for more than 30 years). Denies current tobacco, alcohol and other drug abuse. Allergic history: Crab, ShelfishHome medication: Digoxin, losartan, spironolactone, bumetanide, Farxiga, carvedilol, aspirin, atorvastatin, Tylenol, famotidine, nitroglycerin, vitamin-D Hospital course: On 05/25/25, the patient was examined and evaluated at bedside, VS, labs and chart was reviewed. BP is in the low side, BP medications are on hold. Chest xray shows vascular congestion. The patient complaints of chest pain 3/10, lightheadedness, shortness of breath has improved. [employer] will questioning device today. We will continue following up this patient progress. ROS: Constitutional: No: Fever, Chills, Sweats, Weakness, Malaise, Other Eyes: No: Pain, Vision change, Conjunctivae inflammation, Eyelid inflammation, Other, Redness ENT: No: Ear pain, Ear discharge, Nose pain, Nose discharge, Nose congestion, Mouth pain, Mouth swelling, Throat pain, Throat swelling, Other Respiratory: Shortness of breath improved, No: Cough, Dry,Wheezing, Hemoptysis, Pleuritic Pain, Sputum, Wheezing, Other Cardiovascular: Chest Pain 3/10, Lt Headedness, Palpitations, Orthopnea, Paroxysmal Noc. Dyspnea, Edema, Other Gastrointestinal: No: Nausea, Vomiting, Abdominal Pain, Diarrhea, Constipation, Melena, Hematochezia, Other Musculoskeletal: No: other, neck pain, shoulder pain, arm pain, back pain, hand pain, leg pain, foot pain Neurological:; No: Weakness, Numbness, Incoordination, Change in speech, Confusion, Seizures Objective vital signs Vital Sign Date Time Temp Pulse Resp B/P (MAP) Pulse Ox O2 Delivery O2 Flow Rate FiO2 05/25/25 10:00 90/58 05/25/25 09:03 96.7 74 18 98 96.7 05/25/25 08:00 Room Air* 0 21 Total Intake and Output 05/24/25 05/24/25 05/25/25 15:00 23:00 07:00 Intake Total 925 ml 472 ml Balance 925 ml 472 ml medications Current Medications Medications Dose Ordered Sig/Brian Route Start Time Stop Time Status Last Admin Dose Admin Ondansetron HCl 4 mg Q4HP PRN IV 05/24/25 00:15 05/24/25 10:06 4 MG Morphine Sulfate 2 mg Q4HPRN PRN IV 05/24/25 00:15 05/24/25 10:07 2 MG Morphine Sulfate 2 mg Q30M PRN IV 05/24/25 00:15 Nitroglycerin 0.4 mg Q5MINP PRN SL 05/24/25 00:15 Amiodarone HCl 200 mg BID PO 05/24/25 10:00 05/24/25 09:59 200 MG Aspirin 81 mg DAILY PO 05/24/25 10:00 05/25/25 10:11 81 MG Digoxin 0.125 mg DAILY PO 05/24/25 10:00 05/24/25 10:02 0.125 MG Famotidine 20 mg BID PO 05/24/25 10:00 05/25/25 10:11 20 MG Pantoprazole Sodium 40 mg DAILY PO 05/24/25 10:00 05/25/25 10:11 40 MG Spironolactone 25 mg DAILY PO 05/24/25 10:00 05/24/25 10:03 25 MG Patient Own Medication 10 mg DAILY PO 05/24/25 10:00 Enoxaparin Sodium 90 mg Q12HR SC 05/24/25 10:00 Atorvastatin Calcium 40 mg DAILY PO 05/24/25 10:00 05/24/25 09:59 40 MG Cholecalciferol 2,000 unit DAILY PO 05/24/25 10:00 05/25/25 10:11 2,000 UNIT Acetaminophen/ Hydrocodone Bitart 1 tab Q4HPRN PRN PO 05/24/25 15:30 05/25/25 10:11 1 TAB Metoprolol Tartrate 12.5 mg BID PO 05/25/25 22:00 UNV Examination General Appearance: Alert, Oriented X3, Cooperative, No acute distress HEENT: Atraumatic, PERRLA, EOMI, Mucous membrane moist/pink Respiratory: bilateral fine crackles. normal lung expansion. Cardiovascular: Regular rate, Normal S1, Normal S2, No murmurs, no chest wall tenderness Abdominal: Normal bowel sounds, Soft, No tenderness, No hepatospenomegaly, No masses Extremities: No bilateral leg edema No clubbing, No cyanosis, Normal pulses, No tenderness Skin: No rashes, No breakdown, No significant lesion Neuro: Normal gait, Normal speech, Strength at 5/5 X4 ext, Normal tone, Sensation intact, Cranial nerves 3-12 NL, Reflexes 2+ Psych/Mental Status: Mental status NL, Mood NL laboratory and microbiology Laboratory Tests 05/25/25 05:21 Test 05/25/25 05:21 Range/Units Serum Glucose 77 74-106 mg/dL Microbiology Date/Time Source Procedure Growth Status 05/24/25 05:35 Nose MRSA Screen - Final Complete Problem List/Assessment/Plan Problem List/Assessment/Plan #Acute on chronic hypoxic respiratory failure secondary to CHF #Possible ICD shock #Chest pain, rule out ACS #rule out arrhythmia #chronic systolic heart failure with reduced ejection fraction 6%, status post PRINCIPAL MECHANICAL ENGINEER- D with fracture PRINCIPAL MECHANICAL ENGINEER lead #End-stage nonischemic dilated cardiomyopathy #History of CAD, status post PTCA x4 #Severe mitral regurgitation #pulmonary hypertension( RVSP 52 mm Hg) - EKG shows sinus rhythm with ventricularly paced with image of LBBB. Troponin level negative (12-16) - CXR showed pulmonary vascular congestion - Last echocardiogram completed on 12/2024: Remarkably dilated cardiac chambers, severe diffuse hypokinesis, LVEF 6%, severe MR, severe pulmonary hypertension (RVSP 52 mmHg). - Last coronary angiography on 09/2021 which showed nonobstructive coronary arteries - Maintain potassium above 4 and magnesium above 2 - Continue amiodarone 200 mg p.o. daily, losartan 25 mg daily, carvedilol 3.125 mg b.i.d., spironolactone 25 mg daily , digoxin 0.125 mg daily, Bumex 1 mg daily, Lovenox 1 mg / kg body weight b.i.d. - cardiology on board. - contacted with [employer] and possible pacemaker interrogation tomorrow #Hyperbilirubinemia likely secondary to liver cirrhosis possibly due to hepatic congestion #Chronic Hypertensive heart disease with systolic heart failure. BP medication on hold due to low BP #Hyperlipidemia Atorvastatin 40mg po daily (bed time) #Polysubstance abuse (methamphetamines,marijuan) Counseling about healthy life style. #Possible acute euthyroid sick syndrome - TSH is low, ordered T3 and T4 Diet: cardiac diet DVT prophylaxis - Patient is on Lovenox Goals of care discussed with the patient > 35 min. Discussed plan of care with Dr. Gunn Code status: Full code PCP: Scott Plan discussed with: Patient, the patient agrees with the plan. Plan discussed with: Patient My Orders My Orders Orders - KENTON CARBALLO RESIDENT Procedure Category Date Status Time Strict I&O ED NURSING 05/25/25 Transmitted Date of Service: May 25, 2025 Billing Provider: BRAIN LAI MD Common Visit Codes: [id number] INP/OBS CARE(HIGH) KENTON CARBALLO RESIDENT May 25, 2025 11:43
--- NOTE | 2025-05-25 11:54 | ECG ---
[facility] Test Date: 2025-05-23 Test Time: 19:09:48 Pat Name: SUHAIL VILLALTA Department: [facility] ED Patient ID: [facility]-[id number] Room: [facility]4T B Gender: M Technical Mgr: edinson : 1960 Requested By: CHAITANYA CULP Order Number: [id number] Reading MD: Adrián Mock Measurements Intervals [place] Rate: 97 P: 86 [place]: 190 QRS: -73 QRSD: 168 T: 104 QT: 416 QTc: 529 Interpretive Statements Sinus rhythm Nonspecific IVCD with LAD LVH with secondary repolarization abnormality Electronically Signed On 05-26-2025 13:32:05 PST by Adrián Mock Please click the below link to view image of tracing.
--- NOTE | 2025-05-25 14:05 | ECG ---
[facility] Test Date: 2025-05-23 Test Time: 18:37:31 Pat Name: SUHAIL VILLALTA Department: Room: 0274T B Gender: M Paralegal Legal Secretary: ABELINO : 1960 Requested By: CHAITANYA CULP Order Number: [id number] Reading MD: Adrián Mock Measurements Intervals [place] Rate: 103 P: 92 [place]: 135 QRS: -71 QRSD: 163 T: 106 QT: 406 QTc: 532 Interpretive Statements Sinus tachycardia Nonspecific IVCD with LAD LVH with secondary repolarization abnormality Anterior infarct, acute (LAD) Electronically Signed On 05-26-2025 13:32:03 PST by Adrián Mock Please click the below link to view image of tracing.
[2025-05-25 14:08] LABS: Free T3 10.45 pg/mL (2.3-4.2)
[2025-05-25 14:09] LABS: Free T4 (Free Thyroxine) 2.58 ng/dL (0.89-1.76)
[2025-05-25] MEDS: METOPROLOL TARTRATE 25 MG TAB PO SCH (21:03)
[2025-05-26 01:00] VITALS: BP 111/78; PULSE 78; RESP 17; TEMP 97.6; O2SAT 99
--- NOTE | 2025-05-26 01:26 | DVHPN2 ---
Progress Note - Dictate Date Seen: May 25, 2025 Has the PT tested + for MRSA If YES, has PT been informed?: No Medical Necessity Reason Pt with a Central, PICC or Fol: No Subjective Patient was seen and evaluated in follow up. Patient is complaining of chest pain and lightheadedness. Patient reports SOB is improving. [employer] will interrogate device today. Free T4 2.54, Free T3 10.45. Telemetry reviewed. vital signs Vital Sign Date Time Temp Pulse Resp B/P (MAP) Pulse Ox O2 Delivery O2 Flow Rate FiO2 05/25/25 21:03 77 107/74 05/25/25 21:00 97.4 17 99 97.4 05/25/25 20:00 Room Air* 0 21 Total Intake and Output 05/25/25 05/25/25 05/26/25 15:00 23:00 07:00 Intake Total 1220 ml Balance 1220 ml medications Current Medications Medications Dose Ordered Sig/Brian Route Start Time Stop Time Status Last Admin Dose Admin Ondansetron HCl 4 mg Q4HP PRN IV 05/24/25 00:15 05/25/25 22:01 4 MG Morphine Sulfate 2 mg Q4HPRN PRN IV 05/24/25 00:15 05/24/25 10:07 2 MG Morphine Sulfate 2 mg Q30M PRN IV 05/24/25 00:15 Nitroglycerin 0.4 mg Q5MINP PRN SL 05/24/25 00:15 Amiodarone HCl 200 mg BID PO 05/24/25 10:00 05/25/25 21:02 200 MG Aspirin 81 mg DAILY PO 05/24/25 10:00 05/25/25 10:11 81 MG Digoxin 0.125 mg DAILY PO 05/24/25 10:00 05/24/25 10:02 0.125 MG Famotidine 20 mg BID PO 05/24/25 10:00 05/25/25 21:02 20 MG Pantoprazole Sodium 40 mg DAILY PO 05/24/25 10:00 05/25/25 10:11 40 MG Spironolactone 25 mg DAILY PO 05/24/25 10:00 05/24/25 10:03 25 MG Patient Own Medication 10 mg DAILY PO 05/24/25 10:00 Enoxaparin Sodium 90 mg Q12HR SC 05/24/25 10:00 Atorvastatin Calcium 40 mg DAILY PO 05/24/25 10:00 05/24/25 09:59 40 MG Cholecalciferol 2,000 unit DAILY PO 05/24/25 10:00 05/25/25 10:11 2,000 UNIT Acetaminophen/ Hydrocodone Bitart 1 tab Q4HPRN PRN PO 05/24/25 15:30 05/25/25 21:02 1 TAB Metoprolol Tartrate 12.5 mg BID PO 05/25/25 22:00 objective GENERAL: Alert and oriented x 3. No acute distress. EYES: PERRL, EOMI. Anicteric. HENT: Moist mucous membranes. LUNGS: Clear to auscultation bilaterally. CARDIOVASCULAR: Regular rate and rhythm. ABDOMEN: Soft, nontender and nondistended. EXTREMITIES: No edema. NEUROLOGIC: No focal neurological deficits. SKIN: Warm, dry. laboratory and microbiology Laboratory Tests 05/25/25 05:21 Test 05/25/25 05:21 Range/Units Serum Glucose 77 74-106 mg/dL Problem List Chest pain. CHF. Diabetes mellitus. CAD. AFib. Dyslipidemia. Hypertension. Status post PTCA. Pacemaker. Assessment/Plan Continued all current supportive medical care. Morphine and [place] for pain management. Amiodarone. Aspirin, Lipitor, Metoprolol. Digoxin. DVT and GI prophylactics. Nitro SL. Additional plan as per the hospital course. Plan discussed with: Patient CHAITANYA CULP MD May 26, 2025 01:26
[2025-05-26 05:00] VITALS: BP 117/75; PULSE 73; RESP 18; TEMP 97.2; O2SAT 98
[2025-05-26 06:26] LABS: Hematocrit 36.4 % (41.0-53.0); Hemoglobin 12.1 g/dL (13.5-17.5); Mean Corpuscular Hemoglobin 31.5 pg (28.0-32.0); Mean Corpuscular Volume 94.6 fL (80.0-100.0); Nucleated Red Blood Cells % 0.5 %
[2025-05-26 06:38] LABS: Potassium 5.0 mmol/L (3.5-5.1)
[2025-05-26 06:39] LABS: Anion Gap 8 (5-15); Calcium 8.8 mg/dL (8.7-10.4); Carbon Dioxide 26 mmol/L (20-31)
[2025-05-26 06:44] LABS: BUN/Creatinine Ratio 20.5 (10.0-20.0); Blood Urea Nitrogen 18 mg/dL (9-23); Glucose 78 mg/dL (74-106)
[2025-05-26 06:52] LABS: Chloride 95 mmol/L (98-107); Sodium 129 mmol/L (136-145)
[2025-05-26 08:00] VITALS: PULSE 77; RESP 20; O2SAT 97
[2025-05-26 09:55] VITALS: BP 117/82; PULSE 78; RESP 17; TEMP 98.7; O2SAT 100
--- NOTE | 2025-05-26 12:32 | DVHDSRES ---
Discharge Summary Date of Admission Resident Creating Document: KENTON CARBALLO RESIDENT May 24, 2025 at 00:12 Date of Discharge: May 26, 2025 Admitting Diagnosis #Acute on chronic hypoxic respiratory failure secondary to CHF #Possible ICD shock #Acute Chest pain, rule out ACS #rule out acute arrhythmia #Acute on chronic systolic heart failure with reduced ejection fraction 6%, status post SKEINER- D with fracture SKEINER lead Wounds: no wounds Labs/Diagnostic Data: Laboratory Results Test 05/26/25 05:15 05/25/25 15:32 05/24/25 11:42 05/24/25 10:45 White Blood Count 5.4 10^3/uL (4.4-10.8) Red Blood Count 3.85 10^6/uL (4.5-5.90) Hemoglobin 12.1 g/dL (13.5-17.5) Hematocrit 36.4 % (41.0-53.0) Mean Corpuscular Volume 94.6 fL (80.0-100.0) Mean Corpuscular Hemoglobin 31.5 pg (28.0-32.0) Mean Corpuscular Hemoglobin Concent 33.3 g/dL (32.0-36.0) Red Cell Distribution Width 21.7 % (11.8-14.3) Platelet Count 168 10^3/uL (140-450) Mean Platelet Volume 8.0 fL (6.9-10.8) Neutrophils (%) (Auto) 64.5 % (37.0-80.0) Lymphocytes (%) (Auto) 10.1 % (10.0-50.0) Monocytes (%) (Auto) 16.5 % (0.0-12.0) Eosinophils (%) (Auto) 7.7 % (0.0-7.0) Basophils (%) (Auto) 1.2 % (0.0-2.0) Neutrophils # (Auto) 3.5 10 ^3/uL (1.6-8.6) Lymphocytes # (Auto) 0.5 10 ^3/uL (0.4-5.4) Monocytes # (Auto) 0.9 10 ^3/uL (0-1.3) Eosinophils # (Auto) 0.4 10 ^3/uL (0-0.8) Basophils # (Auto) 0.1 10 ^3/uL (0-0.2) Nucleated Red Blood Cells 0.5 % Sodium Level 129 mmol/L (136-145) Potassium Level 5.0 mmol/L (3.5-5.1) Chloride Level 95 mmol/L (98-107) Carbon Dioxide Level 26 mmol/L (20-31) Anion Gap 8 (5-15) Blood Urea Nitrogen 18 mg/dL (9-23) Creatinine 0.88 mg/dL (0.700-1.30) Glomerular Filtration Rate Calc 97 mL/min (>90) BUN/Creatinine Ratio 20.5 (10.0-20.0) Serum Glucose 78 mg/dL (74-106) Calcium Level 8.8 mg/dL (8.7-10.4) Ammonia 30 umol/L (11-32) Urine Color Yellow (Yellow) Urine Clarity Clear (Clear) Urine pH 5.5 (5.0-9.0) Urine Specific [place] 1.015 (1.001-1.035) Urine Protein 1+ (Negative) Urine Ketones Negative (Negative) Urine Blood Negative /uL (Negative) Urine Nitrite Negative (Negative) Urine Bilirubin 1+ (Negative) Urine Urobilinogen 4 mg/dL (Negative) Urine Leukocyte Esterase Negative /uL (Negative) Urine RBC 2 /hpf (0 - 3) Urine Microscopic WBC 2 /HPF (0-3) Urine Squamous Epithelial Cells Few /hpf (<5) Urine Bacteria None seen /hpf (None Seen) Urine Hyaline Casts Mod /lpf (0 - 2) Urine Glucose Normal mg/dL (Normal) Urine Opiates Screen Pos (NEGATIVE) Urine Fentanyl Screen Neg (NEGATIVE) Urine Barbiturates Screen Neg (NEGATIVE) Urine Phencyclidine Screen Neg (NEGATIVE) Urine Amphetamines Screen Neg (NEGATIVE) Urine Benzodiazepines Screen Neg (NEGATIVE) Urine Cocaine Screen Neg (NEGATIVE) Urine Cannabinoids Screen Pos (NEGATIVE) Test 05/24/25 01:39 05/23/25 21:58 05/23/25 19:00 Hemoglobin A1c 5.6 % A1C (<5.7) Phosphorus Level 4.4 mg/dL (2.4-5.1) Magnesium Level 1.9 mg/dL (1.6-2.6) Total Bilirubin 6.1 mg/dL (0.2-1.0) Aspartate Amino Transferase (AST) 49 U/L (13-40) Alanine Aminotransferase (ALT) 39 U/L (7-40) Alkaline Phosphatase 204 U/L (46-116) Total Protein 6.6 g/dL (5.7-8.2) Albumin 4.1 g/dL (3.2-4.8) Triglycerides Level 59 mg/dL (< 150) Cholesterol Level 111 mg/dL (< 200) LDL Cholesterol 76 mg/dL (< 100) HDL Cholesterol 25 mg/dL (40-59) Lipase 27 U/L (12-53) Vitamin B12 Level 786 pg/mL (211-911) Vitamin D 25-Hydroxy 46.7 ng/mL (30.0-100) Thyroid Stimulating Hormone (TSH) 0.31 uIU/mL (0.55-4.78) Free Thyroxine (T4) Calculated 2.58 ng/dL (0.89-1.76) Free Triiodothyronine (T3) pg/mL 10.45 pg/mL (2.3-4.2) Acetaminophen Level 3.0 UG/ML (10.0-20.0) Plasma/Serum Blood Alcohol < 3.0 mg/dL (<10) Hepatitis A IgM Antibody Negative Hepatitis B Surface Antigen Negative (Negative) Hepatitis B Core IgM Antibody Negative (Negative) Hepatitis C Antibody Negative (Negative) Troponin I High Sensitivity 27 ng/L (</=54) Prothrombin Time 15.1 sec (9.3-11.8) Prothrombin Time INR 1.48 (0.9-1.15) Activated Partial Thromboplast Time 29.1 SEC (24.5-34.5) Other Laboratory Tests 05/26/25 05:15 Brief Hx & Hospital Course: Slava Aparicio is a 65-year-old male, with past medical history of Hypertension, dyslipidemia, DM2, CHF (HFrEF, LVEF 6%) SKEINER-D placement in 2018 ([employer]). The patient came to [facility] with the chief complaint of 10hrs of chest pain, 6/10, retrosternal, pressure-like pain, that started right after feeling a "ICD shock" without irradiation, the chest pain increases with movements and with palpation and did not improve with nitroglycerine. Associated with shortness of breath and dizziness. The patient reported he ran out of nitroglycerine, and due to persistence of symptoms he decided to visit the ED. The patient reports compliance to all his heart failure medication. The patient denies lightheadedness, palpitation, syncope, fever, chills, nausea or vomit. The patient was admitted for further assessment with CDI interrogation and management. Past medical history: Hypertension, dyslipidemia, diabetes, non-ischemic toxic dilated cardiomyopathy HFrEF (LVEF 6%) status post SKEINER-D placement in 2018 ([employer]) with history of broken SKEINER lead, severe pulmonary hypertension, severe MR, paroxysmal atrial fibrillation (chads Vasc 4/has bled2) currently on Apixaban and Amiodarone, history of V-tach, former polysubstance abuse and medical noncompliance. Coronary artery disease status post PCI with four stent placement. Liver cirrhosis. Per patient evaluated in [place], he is in alcohol due to his clinical past medical history (liver cirrhosis, HFrEF) not a good candidate for lead replacement nor heart transplant. Past Surgical History: SKEINER-D in 2018 and PCI with stent placement. Last coronary angiography on 09/2021 with nonobstructive coronary artery disease Family History: Diabetes, heart disease, hypertension in mother and uncle. Social History: Lives in [place] alone ([place] niece Audra). Remote history of multiple substance use when young (he has been clean for more than 30 years). Denies current tobacco, alcohol and other drug abuse. Allergic history: Ronna, Garret medication: Digoxin, losartan, spironolactone, bumetanide, Farxiga, carvedilol, aspirin, atorvastatin, Tylenol, famotidine, nitroglycerin, vitamin-D Hospital course: On 05/25/25, the patient was examined and evaluated at bedside, VS, labs and chart was reviewed. BP is in the low side, BP medications are on hold. Chest xray shows vascular congestion. The patient complaints of chest pain 3/10, lightheadedness, shortness of breath has improved. [employer] will questioning device today. We will continue following up this patient progress. On 05/26/25, the patient was examined and evaluated at bedside, VS, labs and chart was reviewed. BP has improved. Today, the patient reports feeling better, no shortness of breath, no chest pain or other complaints. [employer] questioned patient's ICD, and reports no shock was triggered. The ACS was ruled out, cardiology advised to continue with current management. Due to significant clinical improvement the patient is being discharged today. The patient will follow up with PCP and cardiology in one week. ROS: Constitutional: No: Fever, Chills, Sweats, Weakness, Malaise, Other Eyes: No: Pain, Vision change, Conjunctivae inflammation, Eyelid inflammation, Other, Redness ENT: No: Ear pain, Ear discharge, Nose pain, Nose discharge, Nose congestion, Mouth pain, Mouth swelling, Throat pain, Throat swelling, Other Respiratory: Shortness of breath resolved, No: Cough, Dry,Wheezing, Hemoptysis, Pleuritic Pain, Sputum, Wheezing, Other Cardiovascular: No chest pain, Denies: Palpitations, Orthopnea, Paroxysmal Noc. Dyspnea, Edema, Other Gastrointestinal: No: Nausea, Vomiting, Abdominal Pain, Diarrhea, Constipation, Melena, Hematochezia, Other Musculoskeletal: No: other, neck pain, shoulder pain, arm pain, back pain, hand pain, leg pain, foot pain Neurological:; No: Weakness, Numbness, Incoordination, Change in speech, Confusion, Seizures Examination General Appearance: Alert, Oriented X3, Cooperative, No acute distress HEENT: Atraumatic, PERRLA, EOMI, Mucous membrane moist/pink Respiratory: Normal sounds. normal lung expansion. Cardiovascular: Regular rate, Normal S1, Normal S2, No murmurs, no chest wall tenderness Abdominal: Normal bowel sounds, Soft, No tenderness, No hepatospenomegaly, No masses Extremities: No bilateral leg edema No clubbing, No cyanosis, Normal pulses, No tenderness Skin: No rashes, No breakdown, No significant lesion Neuro: Normal gait, Normal speech, Strength at 5/5 X4 ext, Normal tone, Sensation intact, Cranial nerves 3-12 NL, Reflexes 2+ Psych/Mental Status: Mental status NL, Mood NL Consults/Reason for consult Cardiology; Possible ACS, ICD shock. Operations or Procedures ICD questioning. CLINICAL HISTORY: chest pain TECHNIQUE: Single view of the chest was obtained. COMPARISON: XY CHEST PORTABLE on DOS: 05/10/25, XR CHEST 1 VIEW on DOS: 05/03/25, XY CHEST PORTABLE on DOS: 04/19/25, XY CHEST PORTABLE on DOS: 04/11/25, XR CHEST 1 VIEW on DOS: 04/04/25 FINDINGS: There is a left chest wall pacing device. The heart size is moderately enlarged with pulmonary vascular congestion. There is no dense consolidation. IMPRESSION: Pulmonary vascular congestion EDURE(s): ABDL - ABDOMEN LIMITED REASON: transaminitis ORDER NUMBER(s): [id number], ACCESSION NUMBER(s): [id number] INDICATION: transaminitis TECHNIQUE: Multiple real-time sonographic images of the abdomen were obtained. COMPARISON: US LIVER on DOS: 04/20/25, US ABDOMEN LIMITED on DOS: 04/06/25, US ABDOMEN LIMITED on DOS: 03/25/25 FINDINGS: Study limited by patient's inability or lack of willingness to old. Hepatic parenchyma suggesting steatosis The liver measures 15.2 cm. No intrahepatic biliary ductal dilatation is noted. The gallbladder wall measures 0.61 cm and is thickened. No gallstones or sludge is seen. The common duct measures 0.53 cm and is unremarkable. No pericholecystic fluid is noted. The right kidney measures 10.9 cm. No hydronephrosis. The pancreas is not well visualized due to obscuration from bowel gas. IMPRESSION: 1. Limited study 2. Thickened gallbladder wall negative sonographic Bishop's sign, thickened gallbladder wall no cholelithiasis. Condition at Discharge: Stable Final Diagnosis/Problems List #Acute on chronic hypoxic respiratory failure secondary to CHF #Possible ICD shock #Chest pain, rule out ACS #rule out arrhythmia #Chronic systolic heart failure with reduced ejection fraction 6%, status post SKEINER- D with fracture SKEINER lead #Chronic, End-stage nonischemic dilated cardiomyopathy #History of CAD, status post PTCA x4 #Chronic Severe mitral regurgitation #Chronic pulmonary hypertension( RVSP 52 mm Hg) #Chronic Hyperbilirubinemia likely secondary to liver cirrhosis possibly due to hepatic congestion #Chronic Hypertensive heart disease with systolic heart failure. BP medication on hold due to low BP #Hyperlipidemia #Chronic Polysubstance abuse (methamphetamines,marijuan) #Possible acute euthyroid sick syndrome Discharge Disposition: Home SNF Discharge Will this Physician continue t: No Discharge Instruct/Medications Diet: Cardiac 2g Na,low cholest Activity: No Restrictions, As Tolerated Follow Up/Referral: F/U with PCP in 1week F/U with Caridiology in 1 week Medications: Conitnue current home medications as below: Scheduled Amiodarone HCl (Amiodarone HCl), 1 TAB PO BID Apixaban Base (Eliquis), 5 MG PO BID Aspirin (Aspirin Low Dose), 1 TAB PO DAILY Atorvastatin Calcium (Atorvastatin Calcium), 1 TAB PO DAILY Bumetanide (Bumetanide), 1 TAB PO DAILY Cholecalciferol (Vitamin D3), 1 TAB PO DAILY, (Reported) Dapagliflozin Propanediol (Farxiga), 10 MG PO DAILY Digoxin (Digoxin), 1 TAB PO DAILY, (Reported) Losartan Potassium (Losartan Potassium), 25 MG PO DAILY Metoprolol Succinate (Metoprolol Succinate Er), 1 TAB PO DAILY Nitroglycerin (Ntrostat Sublingual), 0.4 MG SL PRN, (Reported) Pantoprazole Sodium Sesquihydr (Pantoprazole Sodium), 1 TAB PO DAILY, (Reported) Spironolactone (Spironolactone), 1 TAB PO DAILY Discontinued Medications Acetaminophen (Tylenol), 650 MG PO TID PRN Carvedilol (Carvedilol), 3.125 MG PO BID Famotidine (Pepcid Tablet), 1 TAB PO BID Discharge Statement: "Patient was advised to return to the ER or call 911 if any headaches, dizziness, shortness of breath, chest pain, abdominal pain, bleeding, fevers, or worsening of medical condition. Patient was counseled about treatment plan, medications, possible side effects, patientverbalized understanding. All questions were answered to the best of my ability. This discharge took greater then 30 minutes in planning, reviewing documentation, counseling the patient, and discussing with other team members." ASSESSMENT ASSESSMENT Assessment #Acute on chronic hypoxic respiratory failure secondary to CHF #Possible ICD shock #Chest pain, rule out ACS #rule out arrhythmia #Chronic systolic heart failure with reduced ejection fraction 6%, status post SKEINER- D with fracture SKEINER lead #Chronic, End-stage nonischemic dilated cardiomyopathy #History of CAD, status post PTCA x4 #Chronic Severe mitral regurgitation #Chronic pulmonary hypertension( RVSP 52 mm Hg) #Chronic Hyperbilirubinemia likely secondary to liver cirrhosis possibly due to hepatic congestion #Chronic Hypertensive heart disease with systolic heart failure. BP medication on hold due to low BP #Hyperlipidemia #Chronic Polysubstance abuse (methamphetamines,marijuan) #Possible acute euthyroid sick syndrome Date of Service: May 26, 2025 Billing Provider: BRAIN LAI MD Common Visit Codes: 07279-BZY/OBS DISCH DAY >30min [place]ON CARBALLO RESIDENT May 26, 2025 12:32 BRAIN LAI MD Jun 02, 2025 23:47
[2025-05-26 12:59] VITALS: BP 107/74; PULSE 77; RESP 20; TEMP 98.7; O2SAT 96
[2025-05-26 13:17] VITALS: BP 112/76; PULSE 74; RESP 17; TEMP 98.5; O2SAT 100
[2025-05-26] MEDS ORDERED: METO25TA93 PO (14:40)
--- NOTE | 2025-05-26 23:36 | DVHPN2 ---
Progress Note - Dictate Date Seen: May 26, 2025 Has the PT tested + for MRSA If YES, has PT been informed?: No Medical Necessity Reason Pt with a Central, PICC or Fol: No Subjective Patient was seen and evaluated in follow up. Patient has no new complaints at this time. Patient denies any cardiac symptoms. Patient is cardiac stable for discharge. Telemetry reviewed. vital signs Vital Sign Date Time Temp Pulse Resp B/P (MAP) Pulse Ox O2 Delivery O2 Flow Rate FiO2 05/26/25 13:17 98.5 74 17 112/76 (88) 100 98.5 05/26/25 08:00 Room Air* 0 21 Total Intake and Output 05/25/25 05/25/25 05/26/25 15:00 23:00 07:00 Intake Total 1220 ml 2000 ml Balance 1220 ml 2000 ml objective GENERAL: Alert and oriented x 3. No acute distress. EYES: PERRL, EOMI. Anicteric. HENT: Moist mucous membranes. LUNGS: Clear to auscultation bilaterally. CARDIOVASCULAR: Regular rate and rhythm. ABDOMEN: Soft, nontender and nondistended. EXTREMITIES: No edema. NEUROLOGIC: No focal neurological deficits. SKIN: Warm, dry. laboratory and microbiology Laboratory Tests 05/26/25 05:15 Test 05/26/25 05:15 Range/Units Serum Glucose 78 74-106 mg/dL Problem List Chest pain. CHF. Diabetes mellitus. CAD. AFib. Dyslipidemia. Hypertension. Status post PTCA. Pacemaker. Assessment/Plan Continued all current supportive medical care. Morphine and [place] for pain management. Aspirin, Lipitor. GI prophylactics. Nitro SL. Additional plan as per the hospital course. Plan discussed with: Patient CHAITANYA CULP MD May 26, 2025 16:46
== END 2025-05-26 14:50 | disposition home or self-care (01) | DRG 133 ==
LOC: ER 18:32 → OVERFLOW 05-24 00:12 → TELE-WESTW 05-24 04:00
PROVIDERS: ADMIT Student in an Organized Health Care Education/Training Program; ATTEND Student in an Organized Health Care Education/Training Program
PROC: 4B02XTZ Measurement of Cardiac Defibrillator, External Approach (ICD-10-PCS; principal; 2025-05-25)
DX: J96.21 Acute and chronic respiratory failure with hypoxia (principal); I27.20 Pulmonary hypertension, unspecified; I11.0 Hypertensive heart disease with heart failure; E11.9 Type 2 diabetes mellitus without complications; K74.60 Unspecified cirrhosis of liver; F12.10 Cannabis abuse, uncomplicated; I34.0 Nonrheumatic mitral (valve) insufficiency; I42.8 Other cardiomyopathies; R71.0 Precipitous drop in hematocrit; I50.22 Chronic systolic (congestive) heart failure; I25.10 Atherosclerotic heart disease of native coronary artery without angina pectoris; E78.5 Hyperlipidemia, unspecified; I48.0 Paroxysmal atrial fibrillation; Z98.61 Coronary angioplasty status; R74.01 Elevation of levels of liver transaminase levels; F15.10 Other stimulant abuse, uncomplicated; E07.81 Sick-euthyroid syndrome; Z91.013 Allergy to seafood; Z86.711 Personal history of pulmonary embolism; Z83.3 Family history of diabetes mellitus; Z82.49 Family history of ischemic heart disease and other diseases of the circulatory system; Z87.891 Personal history of nicotine dependence; Z82.3 Family history of stroke; Z91.199 Patient's noncompliance with other medical treatment and regimen due to unspecified reason
CPT/HCPCS: 36415; 71045; 76705; 80048; 80053; 80061; 80074; 80307; 80320; 80329; 81001; 82140; 82306; 82607; 83036; 83690; 83735; 84100; 84439; 84443; 84445; 84481; 84484; 85025; 85610; 85730; 87081; 93005; 99291; G0378; J2405

== ENCOUNTER 2025-06-14 16:48 | Inpatient (IN) | payer MEDICAID ==
[~2025-06-14] VITALS: Ht 182.9 cm; Wt 70.9 kg
[~2025-06-14 16:48] MED LIST changes: -ACET-1079 PO; -CARV3.1240 PO; -FAMO20TA10 PO; +METO25TA93 PO
[2025-06-14 17:19] VITALS: PULSE 98; RESP 16
[2025-06-14 17:32] LABS: Hematocrit 44.1 % (41.0-53.0); Hemoglobin 14.8 g/dL (13.5-17.5); Mean Corpuscular Hemoglobin 31.2 pg (28.0-32.0); Mean Corpuscular Volume 93.1 fL (80.0-100.0); Nucleated Red Blood Cells % 0.2 %
[2025-06-14 17:33] LABS: Alanine Aminotransferase 28 U/L (7-40); Albumin 4.5 g/dL (3.2-4.8); Anion Gap 10 (5-15); BUN/Creatinine Ratio 20.2 (10.0-20.0); Calcium 9.8 mg/dL (8.7-10.4); Carbon Dioxide 27 mmol/L (20-31); Magnesium 2.1 mg/dL (1.6-2.6); Potassium 4.7 mmol/L (3.5-5.1); Total Protein 7.7 g/dL (5.7-8.2)
[2025-06-14 17:46] LABS: INR 1.36 (0.9-1.15); Partial Thromboplastin Time 29.6 SEC (24.5-34.5); Prothrombin Time 14.0 sec (9.3-11.8)
--- NOTE | 2025-06-14 17:46 | DVH ---
EXAM: XY CHEST PORTABLE HISTORY: CP TECHNIQUE: 1 view of the chest COMPARISON: XY CHEST XRAY 1 VIEW on DOS: 05/23/25 FINDINGS/IMPRESSION: LUNGS: No pleural effusion, consolidation, or pneumothorax. Suspected peripheral interstitial edema MEDIASTINUM: [id number] cardiomegaly. Left anterior chest cardiac device. BONES: No acute osseous abnormality. OTHER: None.
--- NOTE | 2025-06-14 17:54 | ECG ---
[facility] Test Date: 2025-06-14 Test Time: 17:53:41 Pat Name: SUHAIL VILLALTA Department: Room: Gender: M Sole Stainer: JUAN CARLOS : 1960 Requested By: CHRIS ZAIDI Order Number: [id number] Reading MD: Adrián Mock Measurements Intervals [place] Rate: 93 P: 71 AK: 168 QRS: -75 QRSD: 163 T: 97 QT: 422 QTc: 525 Interpretive Statements Sinus rhythm Probable left atrial enlargement LVH with IVCD, LAD and secondary repol abnrm Inferior infarct, acute (RCA) Prolonged QT interval Probable RV involvement, suggest recording right precordial leads Electronically Signed On 06-14-2025 18:32:43 PST by Adrián Mock Please click the below link to view image of tracing.
--- NOTE | 2025-06-14 18:31 | ED.PDOC ---
History of Present Illness HPI Comments 65 y/o M presents wiht c/c of nonradiating, left sided chest pain, shortness of breath, nausea, and vomiting. Patient endorses on sudden, unprovoked, and atraumatic onset of 9/10 pain, while at home, sitting down, this evening. Patient also reports on his AICD discharging and shocking him, today. He denies any further acute symptoms. Significant history for AFib, angina, CAD, CHF, DM, HLD, HTN, PE, AICD, and PTCA. Chief Complaint: Chest Pain Time Seen by MD: 18:20 Primary Care Provider: GABRIELA Reviewed Notes: Nurses Notes, Copra Sampler Notes, Medications, Allergies Allergies: Coded Allergies: Shellfish Allergy (Unverified Allergy, Severe, 09/11/23) CRAB Uncoded Allergies: CRAB (Allergy, Severe, 08/06/17) Home Meds Active Scripts Metoprolol Succinate (Metoprolol Succinate Er) 25 Mg Tab, 1 TAB PO DAILY for 30 Days, #30 TAB 3 Refills Prov:EVELINE MARTINEZ RESIDENT 05/26/25 Apixaban Base (ELIQUIS) 5 Mg Tab, 5 MG PO BID for 30 Days, #60 TAB 1 Refill Prov:MEME JAIME MD 05/14/25 Atorvastatin Calcium (ATORVASTATIN CALCIUM) 40 Mg Tab, 1 TAB PO DAILY, #90 TAB 1 Refill Prov:MEME JAIME MD 05/14/25 Losartan Potassium (Losartan Potassium) 25 Mg Tab, 25 MG PO DAILY for 30 Days, #30 TAB 0 Refills Prov:MICAELA WRIGHT 04/21/25 Amiodarone HCl (Amiodarone HCl) 200 Mg Tab, 1 TAB PO BID for 30 Days, #60 TAB Prov:MICAELA WRIGHT 04/21/25 Spironolactone (Spironolactone) 25 Mg Tab, 1 TAB PO DAILY for 30 Days, #30 TAB Prov:MICAELA WRIGHT 04/21/25 Bumetanide (Bumetanide) 1 Mg Tab, 1 TAB PO DAILY for 30 Days, #30 TAB Prov:MICAELA WRIGHT 04/21/25 Aspirin (Aspirin Low Dose) 81 Mg Tab, 1 TAB PO DAILY for 30 Days, #30 TAB Prov:MICAELA WRIGHT RESIDENT 04/21/25 Dapagliflozin Propanediol (Farxiga) 10 Mg Tab, 10 MG PO DAILY for 30 Days, #30 TAB Prov:MCIAELA WRIGHT RESIDENT 04/21/25 Reported Medications Pantoprazole Sodium Sesquihydr (Pantoprazole Sodium) 40 Mg Tab, 1 TAB PO DAILY for 30 Days, #30 05/12/24 Cholecalciferol (VITAMIN D3) 2,000 Unit Tab, 1 TAB PO DAILY 01/09/24 Digoxin (Digoxin) 125 Mcg Tab, 1 TAB PO DAILY 01/09/24 Nitroglycerin (NTROSTAT SUBLINGUAL) 0.4 Mg Sl, 0.4 MG SL PRN, TAB *MAY REPEAT EVERY 5 MINUTES X 3 TOTAL IF NO RELIEF, INITIATE ANALGESIC THERAPY. NOTIFY PHYSICIAN *Do not crush. 05/15/23 Information Source: Patient Mode of Arrival: Wheelchair Severity: Moderate Timing: Hours Duration: Since onset Prehospital treatment: Other (see HPI) Past Medical History PAST MEDICAL HISTORY: AFIB, Angina, CAD, CHF, DM, High Lipids, HTN, PE Surgical History: Pacemaker, PTCA Surgical History (Other): AICD Family History Family History: No family hx of Cancer, No family hx ofKidney bhavik, No family hx of Liver bhavik, No family hx of Lung bhavik, No family hx of Stroke, Family hx of DM, Family hx of heart bhavik, Family hx of HTN Social History Smoker: Quit Greater Than 1 Year, Cigarettes Alcohol: Sober Drugs: Denies Drug Use Lives In: Home Constitutional: denies: chills, diaphoresis, fatigue, fever, malaise, sweats, weakness, others EENTM: denies: blurred vision, double vision, ear bleeding, ear discharge, ear drainage, ear pain, ear ringing, eye pain, eye redness, hearing loss, mouth pain, mouth swelling, nasal discharge, nose bleeding, nose congestion, nose pain, photophobia, tearing, throat pain, throat swelling, voice changes, others Respiratory: reports: shortness of breath; denies: cough, hemoptysis, orthopnea, SOB at rest, SOB with excertion, stridor, wheezing, others Cardiovascular: reports: chest pain; denies: dizzy spells, diaphoresis, Dyspnea on exertion, edema, irregular heart beat, left arm pain, lightheadedness, palpitations, PND, syncope, others Gastrointestinal: reports: nausea, vomiting; denies: abdomen distended, abdominal pain, blood streaked bowels, constipated, diarrhea, dysphagia, difficulty swallowing, hematemesis, melena, poor appetite, poor fluid intake, rectal bleeding, rectal pain, others Genitourinary: denies: burning, dysuria, flank pain, frequency, hematuria, incontinence, penile discharge, penile sore, pain, testicle pain, testicle swelling, urgency, others Neurological: denies: dizziness, fainting, headache, left sided numbness, left sided weakness, numbness, paresthesia, pre-existing deficit, right sided numbness, right sided weakness, seizure, speech problems, tingling, tremors, weakness, others Musculoskeletal: denies: back pain, gout, joint pain, joint swelling, muscle pain, muscle stiffness, neck pain, others Integumetry: denies: bruises, change in color, change in hair/nails, dryness, laceration, lesions, lumps, rash, wounds, others Allergic/Immunocompromised: denies: Difficulty Healing, Frequent Infections, Hives, Itching, others Hematologic/Lymphatic: denies: anemia, blood clots, easy bleeding, easy bruising, swollen glands, others Endocrine: denies: excessive hunger, excessive sweating, excessive thirst, excessive urination, flushing, intolerance to cold, intolerance to heat, unexplained weight gain, unexplained weight loss, others Psychiatric: denies: anxiety, bipolar disorder, depression, hopeless, panic disorder, schizophrenia, sleepless, suicidal, others All Other Systems: Reviewed and Negative Physical Exam General Appearance: No Apparent Distress, Normal HEENT: Normal ENT Inspection, Pharynx Normal, TMs Normal Neck: Full Range of Motion, Non-Tender, Normal, Normal Inspection Respiratory: Chest Non-Tender, Lungs Clear, No Accessory Muscle Use, No Respiratory Distress, Normal Breath Sounds Cardiovascular: No Edema, No JVD, No Murmur, No Gallop, Normal Peripheral Pulses, Regular Rate/Rhythm Breast Exam: Deferred Gastrointestinal: No Organomegaly, Non Tender, No Pulsatile Mass, Normal Bowel Sounds, Soft Genitalia: Deferred Pelvic: Deferred Rectal: Deferred Extremities: No calf tenderness, Normal capillary refill, Normal inspection, Normal range of motion, Non-tender, No pedal edema Musculoskeletal : Apperance: Normal Neurologic: Alert, tin can feeder II-XII nml as Tested, Motor Weakness, Normal Affect, Normal Mood, No Sensory Deficits Cerebellar Function: Normal Reflexes: Normal Skin: Dry, Normal Color, Warm Lymphatic: No Adenopathy Was a procedure done? Was a procedure done?: No EKG EKG : Pulse Rate (adult): 93 [place]: Normal Cardiac Rhythm: NSR Block: None Hypertrophy: LVH ST: Nonsp Differential Dx Considerations may include: CO, PE, ACS, URI, PNA, angina, anxiety, CHF exacerbation, among others X-Ray, Labs, Meds, VS Vital Signs Date Time Temp Pulse Resp B/P (MAP) Pulse Ox O2 Delivery O2 Flow Rate FiO2 06/14/25 19:04 94 18 110/76 06/14/25 19:02 93 18 110/76 (87) 98 06/14/25 17:53 93 06/14/25 17:29 97.4 97 24 105/78 (87) 95 97.4 06/14/25 17:20 96 06/14/25 17:19 98 16 Room Air* 0 21 06/14/25 16:57 98.4 104 18 104/55 95 98.4 06/14/25 16:54 104 Lab Test 06/14/25 18:06 06/14/25 17:09 Range/Units Troponin I High Sensitivity 20 27 </=54 ng/L White Blood Count 5.5 4.4-10.8 10^3/uL Red Blood Count 4.74 4.5-5.90 10^6/uL Hemoglobin 14.8 13.5-17.5 g/dL Hematocrit 44.1 41.0-53.0 % Mean Corpuscular Volume 93.1 80.0-100.0 fL Mean Corpuscular Hemoglobin 31.2 28.0-32.0 pg Mean Corpuscular Hemoglobin Concent 33.5 32.0-36.0 g/dL Red Cell Distribution Width 21.1 H 11.8-14.3 % Platelet Count 231 140-450 10^3/uL Mean Platelet Volume 7.2 6.9-10.8 fL Neutrophils (%) (Auto) 70.9 37.0-80.0 % Lymphocytes (%) (Auto) 13.1 10.0-50.0 % Monocytes (%) (Auto) 12.7 H 0.0-12.0 % Eosinophils (%) (Auto) 2.1 0.0-7.0 % Basophils (%) (Auto) 1.2 0.0-2.0 % Neutrophils # (Auto) 3.9 1.6-8.6 10 ^3/uL Lymphocytes # (Auto) 0.7 0.4-5.4 10 ^3/uL Monocytes # (Auto) 0.7 0-1.3 10 ^3/uL Eosinophils # (Auto) 0.1 0-0.8 10 ^3/uL Basophils # (Auto) 0.1 0-0.2 10 ^3/uL Nucleated Red Blood Cells 0.2 % Prothrombin Time 14.0 H 9.3-11.8 sec Prothrombin Time INR 1.36 H 0.9-1.15 Activated Partial Thromboplast Time 29.6 24.5-34.5 SEC Sodium Level 133 L 136-145 mmol/L Potassium Level 4.7 3.5-5.1 mmol/L Chloride Level 96 L 98-107 mmol/L Carbon Dioxide Level 27 20-31 mmol/L Anion Gap 10 5-15 Blood Urea Nitrogen 24 H 9-23 mg/dL Creatinine 1.19 0.700-1.30 mg/dL Glomerular Filtration Rate Calc 69 >90 mL/min BUN/Creatinine Ratio 20.2 H 10.0-20.0 Serum Glucose 116 H 74-106 mg/dL Calcium Level 9.8 8.7-10.4 mg/dL Magnesium Level 2.1 1.6-2.6 mg/dL Total Bilirubin 3.9 H 0.2-1.0 mg/dL Aspartate Amino Transferase (AST) 38 13-40 U/L Alanine Aminotransferase (ALT) 28 7-40 U/L Alkaline Phosphatase 221 H 46-116 U/L B-Type Natriuretic Peptide 2076.46 0-100 pg/mL Total Protein 7.7 5.7-8.2 g/dL Albumin 4.5 3.2-4.8 g/dL Current Medications Medications (Trade) Dose Ordered Sig/Brian Route Start Time Stop Time Status Last Admin Morphine Sulfate 4 mg ONCE ONCE IV 06/14/25 18:30 06/14/25 18:32 DC 06/14/25 19:04 Ondansetron HCl (Zofran) 4 mg ONCE ONCE IV 06/14/25 18:30 06/14/25 18:32 DC 06/14/25 19:05 PROCEDURE(s): CXRP - CHEST PORTABLE FINDINGS/IMPRESSION: LUNGS: No pleural effusion, consolidation, or pneumothorax. Suspected peripheral interstitial edema MEDIASTINUM: [id number] cardiomegaly. Left anterior chest cardiac device. BONES: No acute osseous abnormality. OTHER: None. IV Hep-Lock was established The patient was given morphine 4 mg IV push for the pain The patient was given Zofran 4 mg IV push for the nausea The patient's BNP is elevated at 2076.46 The patient is being given Lasix 40 mg IV push for exacerbation of the CHF as well as acute on chronic diastolic heart failure The CBC is within normal limits. The chemistry panel shows an elevated INR of 1.36 Images Reviewed?: Images reviewed and evaluated by me Time of 1ST Reevaluation: 18:50 Reevaluation 1ST: Unchanged Patient Education/Counseling: Diagnosis, Treatment, Prognosis Family Education/Counseling: No Family Present SEPSIS Sepsis Screen Date sepsis recognized/suspect: Jun 14, 2025 Time Sepsis recognized/suspect: 1699 Recent Procedure: No On Antibiotic Therapy: No Respiratory Rate >20: No Heart Rate >90: Yes Temp<36 C (96.8 F) or >38.3 C: No SBP <90 or MAP <65 mmHG: No New Acute Mental Status Change: No Is the patient on CPAP, BIPAP,: No Physician Orders Electrocardigram (06/14/25 16:56) Durability Engineer (06/14/25 16:56) Chest Portable (06/14/25 16:56) Screen Patients For Biotin Sup (06/14/25 16:56) Electrocardigram (06/14/25 17:56) Electrocardigram (06/14/25 19:56) Troponin-I Hs (06/14/25 19:56) Vital Signs Date Time Temp Pulse Resp B/P (MAP) Pulse Ox O2 Delivery O2 Flow Rate FiO2 06/14/25 19:04 94 18 110/76 06/14/25 19:02 93 18 110/76 (87) 98 06/14/25 17:53 93 06/14/25 17:29 97.4 97 24 105/78 (87) 95 97.4 06/14/25 17:20 96 11/23/25 17:19 98 16 Room Air* 0 21 06/14/25 16:57 98.4 104 18 104/55 95 98.4 06/14/25 16:54 104 Laboratory Tests Test 06/14/25 17:09 White Blood Count 5.5 10^3/uL (4.4-10.8) Medications Medications Dose Ordered Sig/Brian Route Start Time Stop Time Status Last Admin Dose Admin Morphine Sulfate 4 mg ONCE ONCE IV 06/14/25 18:30 06/14/25 18:32 DC 06/14/25 19:04 Ondansetron HCl 4 mg ONCE ONCE IV 06/14/25 18:30 06/14/25 18:32 DC 06/14/25 19:05 Departure 1 Departure Time of Disposition: 19:41 Impression: Primary Impression: Acute on chronic systolic (congestive) heart failure Additional Impression: Acute myocardial ischemia Disposition: ADMITTED INPATIENT Admit to: Tele Condition: Fair Critical Care Note Critical Care Time?: Yes (45 min-critical care time only) Stability Stability form required: Yes Unstable for transfer: Telemetry monitoring (Telemetry monitoring required), ED Physician Assesment (Clinical assesment) Heart Score Heart Score: Heart Score Response (Comments) Value History Moderate Suspicious 1 EKG Repolarization Disturb 1 Age 45-64 1 Risk Factors >3 or Hx ASHD 2 Troponin Normal limit 0 Total 5 I personally scribed for ANA HAYES MD ([email or web address]) on 06/14/25 at 18:31. Electronically submitted by Leonid Sylvester ([email or web address]). I personally scribed for ANA HAYES MD ([email or web address]) on 06/14/25 at 18:38. Electronically submitted by Leonid Sylvester ([email or web address]). ANA HAYES MD Jun 14, 2025 18:31
[2025-06-14 18:56] LABS: Alkaline Phosphatase 221 U/L (46-116); Bilirubin, Total 3.9 mg/dL (0.2-1.0); Blood Urea Nitrogen 24 mg/dL (9-23); Chloride 96 mmol/L (98-107); Glucose 116 mg/dL (74-106); Sodium 133 mmol/L (136-145)
[2025-06-14] MEDS: MORPHINE SULFATE 4 MG/ML SYR/VIAL IV ONE (19:04)
[2025-06-14] MEDS: ONDANSETRON HCL 4 MG/2 ML VIAL IV ONE (19:05)
[2025-06-14] MEDS ORDERED: MORPHINE SULFATE INJ 2 MG/ml SYRG IV PRN (20:00)
[2025-06-14] MEDS ORDERED: NITROGLYCERIN 0.4 MG SL TAB SL PRN (20:00)
[2025-06-14] MEDS: FUROSEMIDE 40 MG/4 ML VIAL IV ONE (20:12)
[2025-06-14 20:35] VITALS: PULSE 73; RESP 15; O2SAT 98
[2025-06-14] MEDS: ATORVASTATIN 20 MG TAB PO SCH (22:11)
[2025-06-14] MEDS: AMIODARONE HCL 200 MG TAB PO SCH (22:13)
--- NOTE | 2025-06-14 22:37 | DVHHP2 ---
History of Present Illness Reason for Visit: Chest pain History of Present Illness 65-year-old male presents for evaluation of chest pain. Patient reports that today in the afternoon while playing with his granddaughter he felt a shock by his defibrillator. He states that subsequently he developed left-sided chest pain. Currently rates the pain at 4/10 in intensity. Past Medical History CHF, CAD, AFib, diabetes mellitus, hypertension, PE, dyslipidemia Past Surgical History AICD, PTCA Family History Noncontributory Smoke: <1 pack per day ALCOHOL: none Drugs: None, Marijuana Lives: with Family Review of Systems Review of Systems Review of systems are currently negative otherwise addressed in HPI. Allergies: Coded Allergies: Shellfish Allergy (Unverified Allergy, Severe, 09/11/23) CRAB Uncoded Allergies: CRAB (Allergy, Severe, 08/06/17) Medications Current Medications Medications Dose Ordered Sig/Brian Route Start Time Stop Time Status Last Admin Dose Admin Nitroglycerin 0.4 mg Q5MINP PRN SL 06/14/25 20:00 Morphine Sulfate 2 mg Q30M PRN IV 06/14/25 20:00 Amiodarone HCl 200 mg Q12HR PO 06/14/25 22:00 06/14/25 22:13 200 MG Atorvastatin Calcium 40 mg HS PO 06/14/25 22:00 06/14/25 22:11 40 MG Digoxin 0.125 mg DAILY PO 06/15/25 10:00 Losartan Potassium 25 mg DAILY PO 06/15/25 10:00 Metoprolol Succinate 25 mg DAILY PO 06/15/25 10:00 Spironolactone 25 mg DAILY PO 06/15/25 10:00 Bumetanide 1 mg BIDD PO 06/15/25 06:00 Ondansetron HCl 4 mg Q4HP PRN IV 06/14/25 20:30 Acetaminophen 650 mg Q6HP PRN PO 06/14/25 20:30 Exam Vital Signs Vital Signs Date Time Temp Pulse Resp B/P (MAP) Pulse Ox O2 Delivery O2 Flow Rate FiO2 06/14/25 20:35 73 15 98 Room Air* 0 21 06/14/25 20:12 110/76 06/14/25 20:00 97.7 97.7 Exam Gen: 65-year-old male in mild distress. Skin: Warm, dry, normal color and texture, no rash. HEENT: Normocephalic atraumatic, mucous membranes moist and pink. Neck: Cervical and supraclavicular nodes normal without enlargement, trachea is midline, thyroid gland is normal without masses. Pulmonary: Clear to auscultation and percussion bilaterally. Cardiac: Regular rate and rhythm. No murmur Abdomen: Soft, nontender, nondistended, bowel sounds present all 4 quadrants, no guarding, no rigidity, no organomegaly. Extremities: No cyanosis, clubbing, no edema Neuro: Cranial nerves II through XII grossly intact, normal affect and speech, no focal motor deficits. Labs/Xrays ORDERING PHYSICIAN: SAM SMITH DNP PROCEDURE(s): ECIDC - ECHO 2D MODE CARDIAC DOP REASON: CHF exacerbation, unspecified ORDER NUMBER(s): [id number], ACCESSION NUMBER(s): [id number] APPROVED REPORT EXAM: Two-dimensional and M-mode echocardiogram with Doppler and color Doppler. Blood Pressure: 108/65 mmHg INDICATION CHF Exacerbation Surgery/Intervention Pacemaker: RISK FACTORS Height: 6', Weight: 190 DIMENSIONS LVDd 7.3 (3.8-5.7cm) LA (2D) 5.7 (1.9-4.0cm) Aortic Root 3.3 (2.0- 3.7cm) LVDs 7.1 (2.5-4.0cm) LA (MM) (1.9-4.0cm) Aortic Cusp Exc 1.8 (1.5- 2.0cm) EF (%) 6.0 (55-70%) Rt. Atrium 6.0 (1.9-4.0cm) Asc. Aorta cm IVSd 1.1 (0.7-1.1cm) RV (D) (1.8-2.4cm) PWd 1.3 (0.7-1.1cm) Mitral Valve Mitral Mitral Stenosis E wave 0.90m/s MV Mean GR. mmHg A wave 0.40m/s MV Peak GR. mmHg E/A ratio 2.3 2D MVA cm2 Aortic Valve Aortic Valve Aortic Stenosis V1 0.30m/s AO Mean GR. 2mmHg V2 0.80m/s AO Peak GR. 3mmHg LVOT Diameter 2.4 (1.8-2.4cm) Doppler SYEDA 1.70cm2 Pulmonic Valve V2 0.30m/s Tricuspid Valve TR Velocity 3.20m/s RVSP 52mmHg Conclusion REMARKABLY DILATED ALL CARDIAC CHAMBERS SEVERE HYPOKINESIS OF ALL CARDIAC CHAMBERS LV EF IS ONLY 6% NORMALVALVES MILD PERICARDIAL EFFUSION PACEMAKER IN RIGHT CARDIAC CHAMBERS SEVERE MITRAL VALVE REGURGITATION SEVERE PULMONARY HYPERTENSION RVSP IS 52 MM OF HG AND IS VERY HIGH ORDERING PHYSICIAN: CHRIS ZAIDI MD PROCEDURE(s): CXRP - CHEST PORTABLE REASON: CP ORDER NUMBER(s): [id number], ACCESSION NUMBER(s): [id number] EXAM: XY CHEST PORTABLE HISTORY: CP TECHNIQUE: 1 view of the chest COMPARISON: XY CHEST XRAY 1 VIEW on DOS: 05/23/25 FINDINGS/IMPRESSION: LUNGS: No pleural effusion, consolidation, or pneumothorax. Suspected peripheral interstitial edema MEDIASTINUM: [id number] cardiomegaly. Left anterior chest cardiac device. BONES: No acute osseous abnormality. OTHER: None. Labs Test 06/14/25 18:06 06/14/25 17:09 Range/Units Troponin I High Sensitivity 20 </=54 ng/L White Blood Count 5.5 4.4-10.8 10^3/uL Red Blood Count 4.74 4.5-5.90 10^6/uL Hemoglobin 14.8 13.5-17.5 g/dL Hematocrit 44.1 41.0-53.0 % Mean Corpuscular Volume 93.1 80.0-100.0 fL Mean Corpuscular Hemoglobin 31.2 28.0-32.0 pg Mean Corpuscular Hemoglobin Concent 33.5 32.0-36.0 g/dL Red Cell Distribution Width 21.1 H 11.8-14.3 % Platelet Count 231 140-450 10^3/uL Mean Platelet Volume 7.2 6.9-10.8 fL Neutrophils (%) (Auto) 70.9 37.0-80.0 % Lymphocytes (%) (Auto) 13.1 10.0-50.0 % Monocytes (%) (Auto) 12.7 H 0.0-12.0 % Eosinophils (%) (Auto) 2.1 0.0-7.0 % Basophils (%) (Auto) 1.2 0.0-2.0 % Neutrophils # (Auto) 3.9 1.6-8.6 10 ^3/uL Lymphocytes # (Auto) 0.7 0.4-5.4 10 ^3/uL Monocytes # (Auto) 0.7 0-1.3 10 ^3/uL Eosinophils # (Auto) 0.1 0-0.8 10 ^3/uL Basophils # (Auto) 0.1 0-0.2 10 ^3/uL Nucleated Red Blood Cells 0.2 % Prothrombin Time 14.0 H 9.3-11.8 sec Prothrombin Time INR 1.36 H 0.9-1.15 Activated Partial Thromboplast Time 29.6 24.5-34.5 SEC Sodium Level 133 L 136-145 mmol/L Potassium Level 4.7 3.5-5.1 mmol/L Chloride Level 96 L 98-107 mmol/L Carbon Dioxide Level 27 20-31 mmol/L Anion Gap 10 5-15 Blood Urea Nitrogen 24 H 9-23 mg/dL Creatinine 1.19 0.700-1.30 mg/dL Glomerular Filtration Rate Calc 69 >90 mL/min BUN/Creatinine Ratio 20.2 H 10.0-20.0 Serum Glucose 116 H 74-106 mg/dL Calcium Level 9.8 8.7-10.4 mg/dL Magnesium Level 2.1 1.6-2.6 mg/dL Total Bilirubin 3.9 H 0.2-1.0 mg/dL Aspartate Amino Transferase (AST) 38 13-40 U/L Alanine Aminotransferase (ALT) 28 7-40 U/L Alkaline Phosphatase 221 H 46-116 U/L B-Type Natriuretic Peptide 2076.46 0-100 pg/mL Total Protein 7.7 5.7-8.2 g/dL Albumin 4.5 3.2-4.8 g/dL SEPSIS Sepsis Screen Date sepsis recognized/suspect: Jun 14, 2025 Time Sepsis recognized/suspect: 2132 Recent Procedure: No On Antibiotic Therapy: No Respiratory Rate >20: No Heart Rate >90: No Temp<36 C (96.8 F) or >38.3 C: No SBP <90 or MAP <65 mmHG: No New Acute Mental Status Change: No Is the patient on CPAP, BIPAP,: No Physician Orders Electrocardigram (06/14/25 16:56) Nail Kegger (06/14/25 16:56) Chest Portable (06/14/25 16:56) Screen Patients For Biotin Sup (06/14/25 16:56) Electrocardigram (06/14/25 17:56) Electrocardigram (06/14/25 19:56) Admit (06/14/25 19:52) Nitroglycerin Sublingual (Ntrostat Subli (06/14/25 20:00) Morphine Sulfate Injection (06/14/25 20:00) Stat Ekg For Chest Pain (06/14/25 19:52) Notify Md Of Changes From Base (06/14/25 19:52) It Sales Executive For 24 Hours (06/14/25 19:52) Emergency Dysrhythmia Protocol (06/14/25 19:52) Rhythm Strips Once Every Shift (06/14/25 19:52) Oxygen By Nasal Cannula (06/14/25 19:52) * Cardiology Consult (06/14/25 20:30) Amiodarone Tablet (Cordarone Tablet) (06/14/25 22:00) Atorvastatin (Lipitor) (06/14/25 22:00) Digoxin Tablet (Lanoxin Tablet) (06/15/25 10:00) Losartan Tablet (Cozaar Tablet) (06/15/25 10:00) Metoprolol Xl Succinate (Toprol Xl) (06/15/25 10:00) Spironolactone (Aldactone) (06/15/25 10:00) Bumetanide Tablet (Bumex Tablet) (06/15/25 06:00) Basic Metabolic Panel (06/15/25 04:00) Ondansetron Hcl (Zofran) (06/14/25 20:30) Cardiac Diet-2gna,Lofat,Lochol (06/15/25 Breakfast) Condition: Fair (06/14/25 20:30) Acetaminophen Tablet (Tylenol Tablet) (06/14/25 20:30) Bedrest With Bathroom Privileg (06/14/25 20:30) Vital Signs Date Time Temp Pulse Resp B/P (MAP) Pulse Ox O2 Delivery O2 Flow Rate FiO2 06/14/25 20:35 73 15 98 Room Air* 0 21 06/14/25 20:12 110/76 06/14/25 20:00 97.7 89 19 105/74 (84) 97 97.7 06/14/25 19:44 87 06/14/25 19:42 93 06/14/25 19:40 95 12 110/81 06/14/25 19:04 94 18 110/76 06/14/25 19:02 93 18 110/76 (87) 98 06/14/25 17:53 93 06/14/25 17:29 97.4 97 24 105/78 (87) 95 97.4 06/14/25 17:20 96 06/14/25 17:19 98 16 Room Air* 0 21 06/14/25 16:57 98.4 104 18 104/55 95 98.4 06/14/25 16:54 104 Laboratory Tests Test 06/14/25 17:09 White Blood Count 5.5 10^3/uL (4.4-10.8) Medications Medications Dose Ordered Sig/Brian Route Start Time Stop Time Status Last Admin Dose Admin Amiodarone HCl 200 mg Q12HR PO 06/14/25 22:00 06/14/25 22:13 200 MG Atorvastatin Calcium 40 mg HS PO 06/14/25 22:00 06/14/25 22:11 40 MG Furosemide 40 mg ONCE ONCE IV 06/14/25 19:45 06/14/25 19:46 DC 06/14/25 20:12 40 MG Morphine Sulfate 4 mg ONCE ONCE IV 06/14/25 18:30 06/14/25 18:32 DC 06/14/25 19:04 4 MG Ondansetron HCl 4 mg ONCE ONCE IV 06/14/25 18:30 06/14/25 18:32 DC 06/14/25 19:05 4 MG Assessment/Plan Assessment/Plan Assessment Chest pain rule out ACS AICD shock Hypertension Congestive heart failure Plan Admit the patient to telemetry to the hospitalist Cardiology consultation ACS protocol Resume home medications Continue treatment per orders Plan discussed with: Patient My Orders Orders - REINA ARRINGTON Procedure Category Date Status Time Admit ADMIT 06/14/25 Transmitted 19:52 Nitroglycerin PHA 06/14/25 In Process Sublingual (Ntrostat 20:00 Morphine Sulfate PHA 06/14/25 In Process Injection 20:00 Stat Ekg For Chest [facility] 06/14/25 In Process Pain 19:52 Notify Of Changes [facility] 06/14/25 In Process From Base 19:52 It Sales Executive For [facility] 06/14/25 In Process 24 Hours 19:52 Emergency Dysrhythmia [facility] 06/14/25 In Process Protocol 19:52 Rhythm Strips Once [facility] 06/14/25 In Process Every Shift 19:52 Oxygen By Nasal RT 06/14/25 Transmitted Cannula 19:52 * Cardiology Consult CONS 06/14/25 Transmitted 20:30 Amiodarone Tablet PHA 06/14/25 In Process (Cordarone Tablet) 22:00 Atorvastatin (Lipitor) PHA 06/14/25 In Process 22:00 Digoxin Tablet PHA 06/15/25 In Process (Lanoxin Tablet) 10:00 Losartan Tablet PHA 06/15/25 In Process (Cozaar Tablet) 10:00 Metoprolol Xl PHA 06/15/25 In Process Succinate (Toprol Xl) 10:00 Spironolactone PHA 06/15/25 In Process (Aldactone) 10:00 Bumetanide Tablet PHA 06/15/25 In Process (Bumex Tablet) 06:00 Basic Metabolic Panel LAB 06/15/25 Verified 04:00 Ondansetron Hcl PHA 06/14/25 In Process (Zofran) 20:30 Cardiac DIET 06/15/25 Transmitted Diet-2gna,Lofat,Lochol Breakfast Condition: Fair [facility] 06/14/25 In Process 20:30 Acetaminophen Tablet PHA 06/14/25 In Process (Tylenol Tablet) 20:30 Bedrest With Bathroom [facility] 06/14/25 In Process Privileg 20:30 Date of Service: Jun 14, 2025 Billing Provider: REINA ARRINGTON Common Visit Codes: [id number] INP/OBS CARE (HIGH) REINA ARRINGTON Jun 14, 2025 22:37
[2025-06-15] VITALS (9 sets, daily range): BP systolic 92–118; BP diastolic 66–84; PULSE 53–90; RESP 16–20; TEMP 97.4–98; O2SAT 93–100
[2025-06-15] MEDS: HYDROcodone-ACET 7.5/325MG TAB PO ONE (01:10)
[2025-06-15 05:53] LABS: Potassium 4.3 mmol/L (3.5-5.1)
[2025-06-15 05:54] LABS: Anion Gap 10 (5-15); Carbon Dioxide 27 mmol/L (20-31)
[2025-06-15 05:55] LABS: Calcium 9.7 mg/dL (8.7-10.4)
[2025-06-15 05:59] LABS: BUN/Creatinine Ratio 18.9 (10.0-20.0); Blood Urea Nitrogen 23 mg/dL (9-23); Glucose 104 mg/dL (74-106)
[2025-06-15 06:02] LABS: Sodium 130 mmol/L (136-145)
[2025-06-15 06:03] LABS: Chloride 93 mmol/L (98-107)
[2025-06-15] MEDS: BUMETANIDE 1 MG TAB PO SCH (06:06)
[2025-06-15] MEDS: DIGOXIN 0.125 MG TAB PO SCH (10:00)
[2025-06-15] MEDS: SPIRONOLACTONE 25 MG TAB PO SCH (10:00)
[2025-06-15] MEDS: METOPROLOL SUCCINATE XL 50 MG TAB PO SCH (10:00)
[2025-06-15] MEDS: LOSARTAN POTASSIUM 25 MG TAB PO SCH (10:00)
[2025-06-15] MEDS: EMPAGLIFLOZIN 10 MG TAB PO SCH (10:00)
--- NOTE | 2025-06-15 10:51 | ECG ---
[facility] Test Date: 2025-06-14 Test Time: 16:54:22 Pat Name: SUHAIL VILLALTA Department: ED Room: 0296T Gender: M Clinical Molecular Geneticist: JESSE : 1960 Requested By: CHRIS ZAIDI Order Number: [id number] Reading MD: Adrián Mock Measurements Intervals [place] Rate: 104 P: 170 IA: 210 QRS: 245 QRSD: 155 T: 62 QT: 388 QTc: 511 Interpretive Statements Sinus or ectopic atrial tachycardia Borderline prolonged IA interval Nonspecific IVCD with LAD Inferior infarct, acute (LCx) Anterior infarct, old Electronically Signed On 06-17-2025 17:44:17 PST by Adrián Mock Please click the below link to view image of tracing.
--- NOTE | 2025-06-15 10:58 | ECG ---
[facility] Test Date: 2025-06-14 Test Time: 19:44:42 Pat Name: SUHAIL VILLALTA Department: ED Room: 0296T Gender: M Customer Assistant: : 1960 Requested By: CHRIS ZAIDI Order Number: [id number] Reading MD: Adrián Mock Measurements Intervals [place] Rate: 87 P: 3 ID: 223 QRS: 226 QRSD: 161 T: 53 QT: 434 QTc: 522 Interpretive Statements Sinus rhythm Prolonged ID interval Nonspecific intraventricular conduction delay Probable anteroseptal infarct, old Repol abnrm suggests ischemia, lateral leads Electronically Signed On 06-17-2025 17:44:25 PST by Adrián Mock Please click the below link to view image of tracing.
[2025-06-15] MEDS: HYDROcodone-ACET 5/325MG TAB PO PRN (13:03)
--- NOTE | 2025-06-15 14:42 | DVHPNRES ---
Progress Note Date Seen: Jun 15, 2025 Resident Creating Document: ANTOINE CATALAN Medical Necessity Reason Pt with a Central, PICC or Fol: No Subjective Review of Systems Patient is a 65-year-old male with past medical history of Hypertension, dyslipidemia, DM2, CHF (HFrEF, LVEF 6%) PIPE CONNECTOR-D placement in 2018 (biotronik), presented to [facility] ED with complaint of chest pain. He reports that approximately one hour prior to arrival, while playing with his granddaughter, his implantable cardioverter-defibrillator (AICD) delivered a shock. Immediately after the shock, he developed left-sided chest pain, initially rated 9/10, now 4/10. The pain was associated with shortness of breath, nausea, and vomiting. The patient was admitted for further assessment with CDI interrogation and management. Past medical history: Hypertension, dyslipidemia, diabetes, non-ischemic toxic dilated cardiomyopathy HFrEF (LVEF 6%) status post PIPE CONNECTOR-D placement in 2018 (biotronik) with history of broken PIPE CONNECTOR lead, severe pulmonary hypertension, severe MR, paroxysmal atrial fibrillation (chads Vasc 4/has bled2) currently on Apixaban and Amiodarone, history of V-tach, former polysubstance abuse and medical noncompliance. Coronary artery disease status post PCI with four stent placement. Liver cirrhosis. Per patient evaluated in [place], he is in alcohol due to his clinical past medical history (liver cirrhosis, HFrEF) not a good candidate for lead replacement nor heart transplant. Past Surgical History: PIPE CONNECTOR-D in 2018 and PCI with stent placement. Last coronary angiography on 09/2021 with nonobstructive coronary artery disease Family History: Diabetes, heart disease, hypertension in mother and uncle. Social History: Lives in [place] alone ([place] niece Audra). Remote history of multiple substance use when young (he has been clean for more than 30 years). Denies current tobacco, alcohol and other drug abuse. Allergic history: Crab, ShelfishHome medication: Digoxin, losartan, spironolactone, bumetanide, Farxiga, carvedilol, aspirin, atorvastatin, Tylenol, famotidine, nitroglycerin, vitamin-D Patient seen and examined at bedside. Patient is alert and oriented to time, place person and responding to all questions. Eyes: No Pain, No Vision change, No Conjunctivae inflammation, No Eyelid inflammation, No Other, No Redness ENT: No Ear pain, No Ear discharge, No Nose pain, No Nose discharge, No Nose congestion, No Mouth pain, No Mouth swelling, No Throat pain, No Throat swelling, No Other Cardiovascular: Chest Pain, No Palpitations, No Orthopnea, No Paroxysmal No Dyspnea, No Edema, No Lt Headedness, No Other Respiratory: No Cough, No Dry, Shortness of breath, No SOB with exertion, No Wheezing, No Hemoptysis, No Pleuritic Pain, No Sputum, No Other Gastrointestinal: Nausea, Vomiting, No Abdominal Pain, No Diarrhea, No Constipation, No Melena, No Hematochezia, No Other Genitourinary: No Dysuria, No Frequency, No Incontinence, No Hematuria, No Retention, No Other Musculoskeletal: No other, No neck pain, No shoulder pain, No arm pain, No back pain, No hand pain, No leg pain, No foot pain Skin: No Rash, No Lesions, No Jaundice, No Bruising, No Other Objective vital signs Vital Sign Date Time Temp Pulse Resp B/P (MAP) Pulse Ox O2 Delivery O2 Flow Rate FiO2 06/15/25 13:00 98.0 87 18 112/77 (89) 100 98.0 06/15/25 07:50 Room Air* 0 21 Total Intake and Output 06/14/25 06/14/25 06/15/25 15:00 23:00 07:00 Intake Total 550 ml Balance 550 ml medications Current Medications Medications Dose Ordered Sig/Brian Route Start Time Stop Time Status Last Admin Dose Admin Nitroglycerin 0.4 mg Q5MINP PRN SL 06/14/25 20:00 Morphine Sulfate 2 mg Q30M PRN IV 06/14/25 20:00 Amiodarone HCl 200 mg Q12HR PO 06/14/25 22:00 06/14/25 22:13 200 MG Atorvastatin Calcium 40 mg HS PO 06/14/25 22:00 06/14/25 22:11 40 MG Digoxin 0.125 mg DAILY PO 06/15/25 10:00 Losartan Potassium 25 mg DAILY PO 06/15/25 10:00 Metoprolol Succinate 25 mg DAILY PO 06/15/25 10:00 Spironolactone 25 mg DAILY PO 06/15/25 10:00 Bumetanide 1 mg BIDD PO 06/15/25 06:00 06/15/25 06:06 1 MG Ondansetron HCl 4 mg Q4HP PRN IV 06/14/25 20:30 Acetaminophen 650 mg Q6HP PRN PO 06/14/25 20:30 Empaglifozin 10 mg DAILY PO 06/15/25 10:00 Acetaminophen/ Hydrocodone Bitart 1 tab Q12HP PRN PO 06/15/25 11:45 06/15/25 13:03 1 TAB Examination General Appearance: Cooperative. Well developed. Well nourished. NAD Head Exam: Normal inspection Neck Exam: Normal inspection. Non-tender. Normal alignment Pulmonary/Respiratory: Chest non-tender. Clear bilateral breath sounds, no crackles, no wheezing. Cardiovascular/Chest: Regular rate and rhythm. No murmurs. No JVD. Peripheral Pulses: 2+ Radial (R). 2+ Radial (L). 2+ Pedal (R). 2+ Pedal (L) Abdominal Exam: Normal bowel sounds. Soft. normal abdomen, no visible veins, Nontender. No hepatospenomegaly. No masses Ankle Exam: Negative ankle edema Lower extremities: Negative lower extremity edema Neuro/Mental Status: A&O x4. Coherent. Thoughts/Psych: Normal thought pattern. Appropriate mood and affect. Good judgement and insight Skin Exam: Normal inspection. Normal color. Warm. Dry laboratory and microbiology Laboratory Tests 06/15/25 05:03 06/14/25 17:09 Test 06/15/25 05:03 Range/Units Serum Glucose 104 74-106 mg/dL Labs and/or images reviewed: Labs reviewed by me, Image(s) reviewed by me Problem List/Assessment/Plan Problem List/Assessment/Plan #Ruled out CRTD shock #Chronic systolic heart failure with reduced ejection fraction 6%, status post PIPE CONNECTOR- D with fracture PIPE CONNECTOR lead #Acute on chronic hypoxic respiratory failure secondary to CHF #Chest pain, rule out ACS #Rule out arrhythmia #Chronic, End-stage nonischemic dilated cardiomyopathy #History of CAD, status post PTCA x4 #Chronic Severe mitral regurgitation #Chronic pulmonary hypertension (RVSP 52 mm Hg) #Peripheral interstitial edema due to above Cardiology consult Chest X-ray: No pleural effusion, consolidation, or pneumothorax. Suspected peripheral interstitial edema Echocardiogram (12/28/24) : remarkably dilated all cardiac chambers. severe hypokinesis of all cardiac chambers. lv ef is only 6%. normal valves. mild pericardial effusion. pacemaker in right cardiac chambers. severe mitral valve regurgitation. severe pulmonary hypertension. rvsp is 52 mm of hg and is very high pain management with Tylenol, [place] and Morphine We talked with Koko Shepherd who came to assess the CRTD, the interrogation showed that the patient didnt have any shock, we will continue current treatment Amiodarone 200 MG PO q12h Atorvastatin 40 MG PO hs Bumex 1 MG PO bid Lanoxin 0.125 MG PO daily Losartan 25 MG PO daily Metoprolol 25 MG Po daily Nitroglycerin 0.4 MG SL q5minp Zofran 4 Mg IV q4h Lasix 40 MG IV once #Type 2 diabetes mellitus Jardiance 10 MG PO daily Diet: Cardiac Goals of care: Full code, discussed for >30 minutes on 06/15/25 Plan discussed with patient Plan discussed with Dr. Sseay Plan discussed with: Patient My Orders My Orders Orders - ANTOINE CATALAN Procedure Category Date Status Time Assess Pacemaker JIMMIE 06/15/25 In Process Function 09:42 Empagliflozin PHA 06/15/25 In Process (Jardiance) 10:00 Date of Service: Jun 15, 2025 Billing Provider: ABHIJIT SESAY MD Common Visit Codes: [id number] INP/OBS CARE(HIGH) ANTOINE CATALAN RESIDENT Jun 15, 2025 14:42 PORTER DELGADO Jun 16, 2025 14:34
[2025-06-15] MEDS: MORPHINE SULFATE INJ 2 MG/ml SYRG IV ONE (23:03)
--- NOTE | 2025-06-15 23:05 | DVHINCON2 ---
DATE OF CONSULTATION: 06/15/2025 CARDIOLOGY CONSULTATION REFERRING PHYSICIAN: Dr. Mcintosh CONSULTING PHYSICIAN: Emy Santoyo MD INDICATION: Chest pain. HISTORY OF PRESENT ILLNESS: The patient is a 65-year-old male with a history of nonischemic dilated cardiomyopathy, status post ICD implant; CHF, hypertension, who presented to the hospital after the patient stated that his ICD fired. Shortly after, he states that he started experiencing chest pain, dull, came to the Emergency Room for further evaluation. CO has been ruled out with serial negative troponin. PAST MEDICAL HISTORY: * Nonischemic dilated cardiomyopathy. * Status post ICD implant. * CHF. * Hypertension. MEDICATIONS: None. ALLERGIES: No known drug allergies. PHYSICAL EXAMINATION: GENERAL: Alert and awake, in no form of cardiopulmonary distress. VITAL SIGNS: Blood pressure 112/77, pulse 84 per minute, saturation 98%. HEENT: No carotid bruits. No jugular venous distention. CHEST: Bilateral air entry. CARDIOVASCULAR: Precordial and carotid pulses palpable. Normal S1, S2. EXTREMITIES: No peripheral edema. DIAGNOSTIC DATA: Troponin negative x3. Sodium 130, potassium 4.3, creatinine 1.2. White count 5, hemoglobin 14, platelets 231. ASSESSMENT: * ICD shock per the patient. * Chest pain following ICD shock. CO has been ruled out with serial negative troponin. * Nonischemic dilated cardiomyopathy. * Hypertension. * History of CHF. RECOMMENDATIONS: * ICD interrogation. * Monitor electrolytes. Keep potassium above 4, magnesium above 2. * Continue with Bumex. * Continue with metoprolol succinate. * We will review echo once completed. * Continue telemetry monitoring. Thank you for allowing me to partake in the care of this patient. MD DOROTHY Calero/OSCAR/ANTHONY TID: [id number] RECEIPT: [id number]
--- NOTE | 2025-06-15 23:20 | DVHINCON2 ---
Date of service: Jun 15, 2025 Referring Physician Valeriy Reason for Consultation Chest pain History of Present Illness This is a 65 year old male with a PMH of AFib, angina, CAD, CHF, DM, HLD, HTN, PE, AICD, and PTCA who presented to the ED with complaints of nonradiating, left sided chest pain, shortness of breath, nausea, and vomiting. Patient reports it was sudden, unprovoked, and atraumatic onset of 9/10 pain, while at home, sitting down. Patient also reports on his AICD discharging and shocking him, today. EKG is NSR at 93. Troponin is negative. BNP is elevated at 2076.46. CBC is within normal limits. Chest x-ray shows suspected peripheral interstitial edema and [id number] cardiomegaly. Patient was admitted to the hospital. I am asked to consult on this patient. Family History: FH: arthritis FH: cancer aunt, Onset:50's - 60 FH: diabetes mellitus G8 MOTHER, , Onset:Unknown FH: stroke G8 MOTHER, , Onset:Unknown FHx: heart disease Family history: Cardiovascular disease G8 MOTHER, , Onset:Unknown Family history: Hypertension G8 MOTHER, , Onset:Unknown Allergies: Coded Allergies: Shellfish Allergy (Unverified Allergy, Severe, 09/11/23) CRAB Uncoded Allergies: CRAB (Allergy, Severe, 08/06/17) Home Meds Active Scripts Metoprolol Succinate (Metoprolol Succinate Er) 25 Mg Tab, 1 TAB PO DAILY for 30 Days, #30 TAB 3 Refills Prov:EVELINE MARTINEZ RESIDENT 05/26/25 Apixaban Base (ELIQUIS) 5 Mg Tab, 5 MG PO BID for 30 Days, #60 TAB 1 Refill Prov:MEME JAIME MD 05/14/25 Atorvastatin Calcium (ATORVASTATIN CALCIUM) 40 Mg Tab, 1 TAB PO DAILY, #90 TAB 1 Refill Prov:MEME JAIME MD 05/14/25 Losartan Potassium (Losartan Potassium) 25 Mg Tab, 25 MG PO DAILY for 30 Days, #30 TAB 0 Refills Prov:MICAELA WRIGHT RESIDENT 04/21/25 Amiodarone HCl (Amiodarone HCl) 200 Mg Tab, 1 TAB PO BID for 30 Days, #60 TAB [facility] 04/21/25 Spironolactone (Spironolactone) 25 Mg Tab, 1 TAB PO DAILY for 30 Days, #30 TAB Prov[facility] 04/21/25 Bumetanide (Bumetanide) 1 Mg Tab, 1 TAB PO DAILY for 30 Days, #30 TAB Prov:[facility] 04/21/25 Aspirin (Aspirin Low Dose) 81 Mg Tab, 1 TAB PO DAILY for 30 Days, #30 TAB Prov:[facility] 04/21/25 Dapagliflozin Propanediol (Farxiga) 10 Mg Tab, 10 MG PO DAILY for 30 Days, #30 TAB Prov:[facility] 04/21/25 Reported Medications Pantoprazole Sodium Sesquihydr (Pantoprazole Sodium) 40 Mg Tab, 1 TAB PO DAILY for 30 Days, #30 05/12/24 Cholecalciferol (VITAMIN D3) 2,000 Unit Tab, 1 TAB PO DAILY 01/09/24 Digoxin (Digoxin) 125 Mcg Tab, 1 TAB PO DAILY 01/09/24 Nitroglycerin (NTROSTAT SUBLINGUAL) 0.4 Mg Sl, 0.4 MG SL PRN, TAB *MAY REPEAT EVERY 5 MINUTES X 3 TOTAL IF NO RELIEF, INITIATE ANALGESIC THERAPY. NOTIFY PHYSICIAN *Do not crush. 05/15/23 Current Medications Current Medications Medications (Trade) Dose Ordered Sig/Brian Route PRN Reason Start Time Stop Time Status Last Admin Digoxin (Lanoxin Tablet) 0.125 mg DAILY PO 06/15/25 10:00 Losartan Potassium (Cozaar Tablet) 25 mg DAILY PO 06/15/25 10:00 Metoprolol Succinate (Toprol Xl) 25 mg DAILY PO 06/15/25 10:00 Spironolactone (Aldactone) 25 mg DAILY PO 06/15/25 10:00 Bumetanide (Bumex Tablet) 1 mg BIDD PO 06/15/25 06:00 06/15/25 18:03 Empaglifozin (Jardiance) 10 mg DAILY PO 06/15/25 10:00 Acetaminophen/ Hydrocodone Bitart ([place] 5/325MG Tab) 1 tab Q12HP PRN PO MODERATE PAIN (4-6 PAIN SCALE) 06/15/25 11:45 06/15/25 13:03 Review of Systems Constitutional: denies: chills, diaphoresis, fatigue, fever, malaise, sweats, weakness, others EENTM: denies: blurred vision, double vision, ear bleeding, ear discharge, ear drainage, ear pain, ear ringing, eye pain, eye redness, hearing loss, mouth pain, mouth swelling, nasal discharge, nose bleeding, nose congestion, nose pain, photophobia, tearing, throat pain, throat swelling, voice changes, others Respiratory: reports: shortness of breath; denies: cough, hemoptysis, orthopnea, SOB at rest, SOB with excertion, stridor, wheezing, others Cardiovascular: reports: chest pain; denies: dizzy spells, diaphoresis, Dyspnea on exertion, edema, irregular heart beat, left arm pain, lightheadedness, palpitations, PND, syncope, others Gastrointestinal: reports: nausea, vomiting; denies: abdomen distended, abdominal pain, blood streaked bowels, constipated, diarrhea, dysphagia, difficulty swallowing, hematemesis, melena, poor appetite, poor fluid intake, rectal bleeding, rectal pain, others Genitourinary: denies: burning, dysuria, flank pain, frequency, hematuria, incontinence, penile discharge, penile sore, pain, testicle pain, testicle swelling, urgency, others Neurological: denies: dizziness, fainting, headache, left sided numbness, left sided weakness, numbness, paresthesia, pre-existing deficit, right sided n umbness, right sided weakness, seizure, speech problems, tingling, tremors, weakness, others Musculoskeletal: denies: back pain, gout, joint pain, joint swelling, muscle pain, muscle stiffness, neck pain, others Integumetry: denies: bruises, change in color, change in hair/nails, dryness, laceration, lesions, lumps, rash, wounds, others Allergic/Immunocompromised: denies: Difficulty Healing, Frequent Infections, Hives, Itching, others Hematologic/Lymphatic: denies: anemia, blood clots, easy bleeding, easy bruising, swollen glands, others Endocrine: denies: excessive hunger, excessive sweating, excessive thirst, excessive urination, flushing, intolerance to cold, intolerance to heat, unexplained weight gain, unexplained weight loss, others Psychiatric: denies: anxiety, bipolar disorder, depression, hopeless, panic disorder, schizophrenia, sleepless, suicidal, others All Other Systems: Reviewed and Negative Vital Signs Vital Signs Date Time Temp Pulse Resp B/P (MAP) Pulse Ox O2 Delivery O2 Flow Rate FiO2 06/15/25 18:03 118/84 06/15/25 17:00 97.4 84 18 100 97.4 06/15/25 07:50 Room Air* 0 21 Physical Exam GENERAL: Alert and oriented x 3. No acute distress. EYES: PERRL, EOMI. Anicteric. HENT: Moist mucous membranes. LUNGS: Clear to auscultation bilaterally. CARDIOVASCULAR: Regular rate and rhythm. ABDOMEN: Soft, non-tender and non-distended. EXTREMITIES: No edema. NEUROLOGIC: No focal neurological deficits. SKIN: Warm, dry. Labs/Diagnostic Data Labs Test 06/15/25 05:03 06/14/25 18:06 06/14/25 17:09 Range/Units Sodium Level 130 L 136-145 mmol/L Potassium Level 4.3 3.5-5.1 mmol/L Chloride Level 93 L 98-107 mmol/L Carbon Dioxide Level 27 20-31 mmol/L Anion Gap 10 5-15 Blood Urea Nitrogen 23 9-23 mg/dL Creatinine 1.22 0.700-1.30 mg/dL Glomerular Filtration Rate Calc 67 >90 mL/min BUN/Creatinine Ratio 18.9 10.0-20.0 Serum Glucose 104 74-106 mg/dL Calcium Level 9.7 8.7-10.4 mg/dL Troponin I High Sensitivity 20 </=54 ng/L White Blood Count 5.5 4.4-10.8 10^3/uL Red Blood Count 4.74 4.5-5.90 10^6/uL Hemoglobin 14.8 13.5-17.5 g/dL Hematocrit 44.1 41.0-53.0 % Mean Corpuscular Volume 93.1 80.0-100.0 fL Mean Corpuscular Hemoglobin 31.2 28.0-32.0 pg Mean Corpuscular Hemoglobin Concent 33.5 32.0-36.0 g/dL Red Cell Distribution Width 21.1 H 11.8-14.3 % Platelet Count 231 140-450 10^3/uL Mean Platelet Volume 7.2 6.9-10.8 fL Neutrophils (%) (Auto) 70.9 37.0-80.0 % Lymphocytes (%) (Auto) 13.1 10.0-50.0 % Monocytes (%) (Auto) 12.7 H 0.0-12.0 % Eosinophils (%) (Auto) 2.1 0.0-7.0 % Basophils (%) (Auto) 1.2 0.0-2.0 % Neutrophils # (Auto) 3.9 1.6-8.6 10 ^3/uL Lymphocytes # (Auto) 0.7 0.4-5.4 10 ^3/uL Monocytes # (Auto) 0.7 0-1.3 10 ^3/uL Eosinophils # (Auto) 0.1 0-0.8 10 ^3/uL Basophils # (Auto) 0.1 0-0.2 10 ^3/uL Nucleated Red Blood Cells 0.2 % Prothrombin Time 14.0 H 9.3-11.8 sec Prothrombin Time INR 1.36 H 0.9-1.15 Activated Partial Thromboplast Time 29.6 24.5-34.5 SEC Magnesium Level 2.1 1.6-2.6 mg/dL Total Bilirubin 3.9 H 0.2-1.0 mg/dL Aspartate Amino Transferase (AST) 38 13-40 U/L Alanine Aminotransferase (ALT) 28 7-40 U/L Alkaline Phosphatase 221 H 46-116 U/L B-Type Natriuretic Peptide 2076.46 0-100 pg/mL Total Protein 7.7 5.7-8.2 g/dL Albumin 4.5 3.2-4.8 g/dL Assessment Chronic systolic heart failure with reduced ejection fraction 6%, status post [employer] MANAGER- D with fracture [employer]GER lead Acute on chronic hypoxic respiratory failure secondary to CHF. Possible ICD shock. Chest pain. End-stage nonischemic dilated cardiomyopathy. History of CAD, status post PTCA x4. Chronic severe mitral regurgitation. Chronic pulmonary hypertension (RVSP 52 mm Hg). Peripheral interstitial edema. Type 2 diabetes mellitus. Plan/Recommendation I agree with your ongoing assessment and care of plan. Morphine and [place] for pain managment. Amiodarone. Lipitor, Metoprolol. Diuretics with Bumex. Digoxin. Losartan. Nitro SL. Additional plan as per the hospital course. A total of 45 minutes was spent reviewing the patient record, examining the patient, making a diagnostic and therapeutic plan, discussing this plan with medical personnel, following up on diagnostic studies and following the patient for clinical stability excluding any and all procedures. At least 50% of this time was spent in direct, [id number] contact. Plan discussed with: Patient CHAITANYA CULP MD Jun 15, 2025 23:20
[2025-06-16] VITALS (8 sets, daily range): BP systolic 99–112; BP diastolic 69–82; PULSE 76–88; RESP 14–20; TEMP 97.5–97.9; O2SAT 95–100
[2025-06-16 08:43] LABS: Hematocrit 39.0 % (41.0-53.0); Hemoglobin 13.2 g/dL (13.5-17.5); Mean Corpuscular Hemoglobin 31.0 pg (28.0-32.0); Mean Corpuscular Volume 91.6 fL (80.0-100.0); Nucleated Red Blood Cells % 0.1 %
[2025-06-16 08:54] LABS: Alanine Aminotransferase 21 U/L (7-40); Albumin 4.0 g/dL (3.2-4.8); Anion Gap 10 (5-15); BUN/Creatinine Ratio 20.4 (10.0-20.0); Blood Urea Nitrogen 22 mg/dL (9-23); Calcium 9.5 mg/dL (8.7-10.4); Potassium 4.0 mmol/L (3.5-5.1); Total Protein 6.7 g/dL (5.7-8.2)
[2025-06-16 08:56] LABS: Alkaline Phosphatase 182 U/L (46-116); Bilirubin, Total 4.2 mg/dL (0.2-1.0); Carbon Dioxide 31 mmol/L (20-31); Chloride 93 mmol/L (98-107); Glucose 72 mg/dL (74-106); Sodium 134 mmol/L (136-145)
[2025-06-16] MEDS: ONDANSETRON HCL 4 MG/2 ML VIAL IV PRN (13:09)
--- NOTE | 2025-06-16 18:13 | DVHPNRES ---
Progress Note Date Seen: Jun 16, 2025 Resident Creating Document: ANTOINE CATALAN Medical Necessity Reason Pt with a Central, PICC or Fol: No Subjective Review of Systems Patient is a 65-year-old male with past medical history of Hypertension, dyslipidemia, DM2, CHF (HFrEF, LVEF 6%) SHIPPING AND RECEIVING MATERIAL HANDLER-D placement in 2018 (biotronik), presented to [facility] ED with complaint of chest pain. He reports that approximately one hour prior to arrival, while playing with his granddaughter, his implantable cardioverter-defibrillator (AICD) delivered a shock. Immediately after the shock, he developed left-sided chest pain, initially rated 9/10, now 4/10. The pain was associated with shortness of breath, nausea, and vomiting. The patient was admitted for further assessment with CDI interrogation and management. On 06/16/25, Patient was seen and examined at bedside. Overnight events were reviewed. The patient reports improvement in his symptoms, no complains. Patients family requested custodial placement and asked to speak with manager social work. After discussion, ordered a physical therapy evaluation to determine if the patient qualifies for custodial facility transfer. Past medical history: Hypertension, dyslipidemia, diabetes, non-ischemic toxic dilated cardiomyopathy HFrEF (LVEF 6%) status post SHIPPING AND RECEIVING MATERIAL HANDLER-D placement in 2018 (biotronik) with history of broken SHIPPING AND RECEIVING MATERIAL HANDLER lead, severe pulmonary hypertension, severe MR, paroxysmal atrial fibrillation (chads Vasc 4/has bled2) currently on Apixaban and Amiodarone, history of V-tach, former polysubstance abuse and medical noncompliance. Coronary artery disease status post PCI with four stent placement. Liver cirrhosis. Per patient evaluated in [place], he is in alcohol due to his clinical past medical history (liver cirrhosis, HFrEF) not a good candidate for lead replacement nor heart transplant. Past Surgical History: SHIPPING AND RECEIVING MATERIAL HANDLER-D in 2018 and PCI with stent placement. Last coronary angiography on 09/2021 with nonobstructive coronary artery disease Family History: Diabetes, heart disease, hypertension in mother and uncle. Social History: Lives in [place] alone ([place] niece Audra). Remote history of multiple substance use when young (he has been clean for more than 30 years). Denies current tobacco, alcohol and other drug abuse. Allergic history: Crab, ShelfishHome medication: Digoxin, losartan, spironolactone, bumetanide, Farxiga, carvedilol, aspirin, atorvastatin, Tylenol, famotidine, nitroglycerin, vitamin-D Patient seen and examined at bedside. Patient is alert and oriented to time, place person and responding to all questions. Eyes: No Pain, No Vision change, No Conjunctivae inflammation, No Eyelid inflammation, No Other, No Redness ENT: No Ear pain, No Ear discharge, No Nose pain, No Nose discharge, No Nose congestion, No Mouth pain, No Mouth swelling, No Throat pain, No Throat swelling, No Other Cardiovascular: Chest Pain, No Palpitations, No Orthopnea, No Paroxysmal No Dyspnea, No Edema, No Lt Headedness, No Other Respiratory: No Cough, No Dry, Shortness of breath, No SOB with exertion, No Wheezing, No Hemoptysis, No Pleuritic Pain, No Sputum, No Other Gastrointestinal: Nausea, Vomiting, No Abdominal Pain, No Diarrhea, No Constipation, No Melena, No Hematochezia, No Other Genitourinary: No Dysuria, No Frequency, No Incontinence, No Hematuria, No Retention, No Other Musculoskeletal: No other, No neck pain, No shoulder pain, No arm pain, No back pain, No hand pain, No leg pain, No foot pain Skin: No Rash, No Lesions, No Jaundice, No Bruising, No Other Objective vital signs Vital Sign Date Time Temp Pulse Resp B/P (MAP) Pulse Ox O2 Delivery O2 Flow Rate FiO2 06/16/25 17:00 97.6 85 18 109/77 (88) 100 97.6 06/16/25 08:00 Nasal Cannula* 2 28 Total Intake and Output 06/15/25 06/15/25 06/16/25 15:00 23:00 07:00 Intake Total 840 ml 250 ml 600 ml Balance 840 ml 250 ml 600 ml medications Current Medications Medications Dose Ordered Sig/Brian Route Start Time Stop Time Status Last Admin Dose Admin Nitroglycerin 0.4 mg Q5MINP PRN SL 06/14/25 20:00 Morphine Sulfate 2 mg Q30M PRN IV 06/14/25 20:00 Amiodarone HCl 200 mg Q12HR PO 06/14/25 22:00 06/15/25 21:26 200 MG Atorvastatin Calcium 40 mg HS PO 06/14/25 22:00 06/15/25 21:26 40 MG Digoxin 0.125 mg DAILY PO 06/15/25 10:00 Losartan Potassium 25 mg DAILY PO 06/15/25 10:00 Metoprolol Succinate 25 mg DAILY PO 06/15/25 10:00 Spironolactone 25 mg DAILY PO 06/15/25 10:00 Bumetanide 1 mg BIDD PO 06/15/25 06:00 06/15/25 18:03 1 MG Ondansetron HCl 4 mg Q4HP PRN IV 06/14/25 20:30 06/16/25 13:09 4 MG Acetaminophen 650 mg Q6HP PRN PO 06/14/25 20:30 Empaglifozin 10 mg DAILY PO 06/15/25 10:00 Acetaminophen/ Hydrocodone Bitart 1 tab Q12HP PRN PO 06/15/25 11:45 06/16/25 17:30 1 TAB Examination Head Exam: Normal inspection Neck Exam: Normal inspection. Non-tender. Normal alignment Pulmonary/Respiratory: Chest non-tender. Clear bilateral breath sounds, no crackles, no wheezing. Cardiovascular/Chest: Regular rate and rhythm. No murmurs. No JVD. Peripheral Pulses: 2+ Radial (R). 2+ Radial (L). 2+ Pedal (R). 2+ Pedal (L) Abdominal Exam: Normal bowel sounds. Soft. normal abdomen, no visible veins, Nontender. No hepatospenomegaly. No masses Ankle Exam: Negative ankle edema Lower extremities: Negative lower extremity edema Neuro/Mental Status: A&O x4. Coherent. Thoughts/Psych: Normal thought pattern. Appropriate mood and affect. Good judgement and insight Skin Exam: Normal inspection. Normal color. Warm. Dry laboratory and microbiology Laboratory Tests 06/16/25 08:27 Test 06/16/25 08:27 Range/Units Serum Glucose 72 L 74-106 mg/dL Labs and/or images reviewed: Labs reviewed by me, Image(s) reviewed by me Problem List/Assessment/Plan Problem List/Assessment/Plan #Chronic systolic heart failure with reduced ejection fraction 6%, status post SHIPPING AND RECEIVING MATERIAL HANDLER- D with fracture SHIPPING AND RECEIVING MATERIAL HANDLER lead #Acute on chronic hypoxic respiratory failure secondary to CHF #Possible ICD shock #Chest pain, rule out ACS #Rule out arrhythmia #Chronic, End-stage nonischemic dilated cardiomyopathy #History of CAD, status post PTCA x4 #Chronic Severe mitral regurgitation #Chronic pulmonary hypertension (RVSP 52 mm Hg) #Peripheral interstitial edema due to above Cardiology consult Chest X-ray: No pleural effusion, consolidation, or pneumothorax. Suspected peripheral interstitial edema Echocardiogram (12/28/24) : remarkably dilated all cardiac chambers. severe hypokinesis of all cardiac chambers. lv ef is only 6%. normal valves. mild pericardial effusion. pacemaker in right cardiac chambers. severe mitral valve regurgitation. severe pulmonary hypertension. rvsp is 52 mm of hg and is very high pain management with Tylenol, [place] and Morphine Amiodarone 200 MG PO q12h Atorvastatin 40 MG PO hs Bumex 1 MG PO bid Lanoxin 0.125 MG PO daily Losartan 25 MG PO daily Metoprolol 25 MG Po daily Nitroglycerin 0.4 MG SL q5minp Zofran 4 Mg IV q4h Lasix 40 MG IV once #Type 2 diabetes mellitus Jardiance 10 MG PO daily Diet: Cardiac Goals of care: Full code, discussed for >30 minutes on 06/16/25 Plan discussed with patient Plan discussed with Dr. Sesay Plan discussed with: Patient My Orders My Orders Orders - ANTOINE CATALAN Procedure Category Date Status Time * Excel Expert CONS 06/16/25 Transmitted Consult 13:04 Date of Service: Jun 16, 2025 Billing Provider: ABHIJIT SESAY MD Common Visit Codes: [id number] INP/OBS CARE(HIGH) ANTOINE CATALAN Jun 16, 2025 18:13 ABHIJIT SESAY MD Jun 23, 2025 21:44
[2025-06-16] MEDS: MELATONIN 5 MG TAB PO PRN (22:27)
[2025-06-17] VITALS (8 sets, daily range): BP systolic 99–120; BP diastolic 66–82; PULSE 54–91; RESP 17–19; TEMP 97.3–98.2; O2SAT 95–99
--- NOTE | 2025-06-17 00:27 | DVHPN2 ---
Progress Note - Dictate Date Seen: Jun 16, 2025 Medical Necessity Reason Pt with a Central, PICC or Fol: No Subjective Patient was seen and evaluated in follow up. Patient complains of intermittent chest pain. Patient is requesting for SNF placement. Telemetry reviewed. vital signs Vital Sign Date Time Temp Pulse Resp B/P (MAP) Pulse Ox O2 Delivery O2 Flow Rate FiO2 06/16/25 13:00 97.6 84 18 107/81 (90) 96 97.6 06/16/25 08:00 Nasal Cannula* 2 28 Total Intake and Output 06/15/25 06/15/25 06/16/25 15:00 23:00 07:00 Intake Total 840 ml 250 ml 600 ml Balance 840 ml 250 ml 600 ml medications Current Medications Medications Dose Ordered Sig/Brian Route Start Time Stop Time Status Last Admin Dose Admin Nitroglycerin 0.4 mg Q5MINP PRN SL 06/14/25 20:00 Morphine Sulfate 2 mg Q30M PRN IV 06/14/25 20:00 Amiodarone HCl 200 mg Q12HR PO 06/14/25 22:00 06/15/25 21:26 200 MG Atorvastatin Calcium 40 mg HS PO 06/14/25 22:00 06/15/25 21:26 40 MG Digoxin 0.125 mg DAILY PO 06/15/25 10:00 Losartan Potassium 25 mg DAILY PO 06/15/25 10:00 Metoprolol Succinate 25 mg DAILY PO 06/15/25 10:00 Spironolactone 25 mg DAILY PO 06/15/25 10:00 Bumetanide 1 mg BIDD PO 06/15/25 06:00 06/15/25 18:03 1 MG Ondansetron HCl 4 mg Q4HP PRN IV 06/14/25 20:30 06/16/25 13:09 4 MG Acetaminophen 650 mg Q6HP PRN PO 06/14/25 20:30 Empaglifozin 10 mg DAILY PO 06/15/25 10:00 Acetaminophen/ Hydrocodone Bitart 1 tab Q12HP PRN PO 06/15/25 11:45 06/15/25 13:03 1 TAB objective GENERAL: Alert and oriented x 3. No acute distress. EYES: PERRL, EOMI. Anicteric. HENT: Moist mucous membranes. LUNGS: Clear to auscultation bilaterally. CARDIOVASCULAR: Regular rate and rhythm. ABDOMEN: Soft, non-tender and non-distended. EXTREMITIES: No edema. NEUROLOGIC: No focal neurological deficits. SKIN: Warm, dry. laboratory and microbiology Laboratory Tests 06/16/25 08:27 Test 06/16/25 08:27 Range/Units Serum Glucose 72 L 74-106 mg/dL Problem List Chronic systolic heart failure with reduced ejection fraction 6%, status post HEEL SLICKER- D with fracture HEEL SLICKER lead Acute on chronic hypoxic respiratory failure secondary to CHF. Possible ICD shock. Chest pain. End-stage nonischemic dilated cardiomyopathy. History of CAD, status post PTCA x4. Chronic severe mitral regurgitation. Chronic pulmonary hypertension (RVSP 52 mm Hg). Peripheral interstitial edema. Type 2 diabetes mellitus. Assessment/Plan Continued all current supportive medical care. Morphine and [place] for pain management. Amiodarone. Lipitor, Metoprolol. Diuretics with Bumex. Digoxin. Losartan. Additional plan as per the hospital course. Plan discussed with: Patient CHAITANYA CULP MD Jun 16, 2025 14:08
[2025-06-17 07:22] LABS: Hematocrit 40.8 % (41.0-53.0); Hemoglobin 13.8 g/dL (13.5-17.5); Mean Corpuscular Hemoglobin 31.3 pg (28.0-32.0); Mean Corpuscular Volume 92.3 fL (80.0-100.0); Nucleated Red Blood Cells % 0.1 %
[2025-06-17 07:59] LABS: Alanine Aminotransferase 23 U/L (7-40); Albumin 4.0 g/dL (3.2-4.8); Alkaline Phosphatase 183 U/L (46-116); BUN/Creatinine Ratio 21.4 (10.0-20.0); Bilirubin, Total 4.2 mg/dL (0.2-1.0); Blood Urea Nitrogen 25 mg/dL (9-23); Calcium 9.3 mg/dL (8.7-10.4); Carbon Dioxide 29 mmol/L (20-31); Glucose 113 mg/dL (74-106); Total Protein 6.8 g/dL (5.7-8.2)
[2025-06-17 08:32] LABS: Anion Gap 10 (5-15); Potassium 4.5 mmol/L (3.5-5.1)
[2025-06-17 08:40] LABS: Chloride 89 mmol/L (98-107); Sodium 128 mmol/L (136-145)
--- NOTE | 2025-06-17 10:51 | DVH ---
INDICATION: back pain COMPARISON: None TECHNIQUE: 2 views of the lumbar spine were obtained. FINDINGS: Moderate multilevel degenerative disc disease of the lumbosacral spine. No acute fracture, vertebral compression deformity or aggressive osseous lesions. The paravertebral soft tissues are grossly unremarkable. IMPRESSION: No acute fracture.
--- NOTE | 2025-06-17 10:54 | DVH ---
CLINICAL INDICATION: pain TECHNIQUE: 3 radiographic views of the sacrum/coccyx were obtained. Comparison: None FINDINGS/IMPRESSION: There is no evidence of acute fracture or dislocation. The visualized joint space is well maintained. The alignment is anatomical. There is no radiopaque foreign body.
[2025-06-17] MEDS: KETOROLAC TROMETH 30 MG/ML 1ML VIAL IV ONE (10:58)
--- NOTE | 2025-06-17 15:32 | DVHDSRES ---
Discharge Summary Date of Admission Resident Creating Document: ANTOINE CATALAN RESIDENT Jun 14, 2025 at 19:52 Date of Discharge: Jun 17, 2025 Admitting Diagnosis chest pain Labs/Diagnostic Data: Laboratory Results Test 06/17/25 06:54 06/14/25 18:06 06/14/25 17:09 White Blood Count 6.1 10^3/uL (4.4-10.8) Red Blood Count 4.41 10^6/uL (4.5-5.90) Hemoglobin 13.8 g/dL (13.5-17.5) Hematocrit 40.8 % (41.0-53.0) Mean Corpuscular Volume 92.3 fL (80.0-100.0) Mean Corpuscular Hemoglobin 31.3 pg (28.0-32.0) Mean Corpuscular Hemoglobin Concent 33.9 g/dL (32.0-36.0) Red Cell Distribution Width 20.6 % (11.8-14.3) Platelet Count 189 10^3/uL (140-450) Mean Platelet Volume 7.7 fL (6.9-10.8) Neutrophils (%) (Auto) 72.6 % (37.0-80.0) Lymphocytes (%) (Auto) 9.7 % (10.0-50.0) Monocytes (%) (Auto) 16.1 % (0.0-12.0) Eosinophils (%) (Auto) 1.0 % (0.0-7.0) Basophils (%) (Auto) 0.6 % (0.0-2.0) Neutrophils # (Auto) 4.4 10 ^3/uL (1.6-8.6) Lymphocytes # (Auto) 0.6 10 ^3/uL (0.4-5.4) Monocytes # (Auto) 1.0 10 ^3/uL (0-1.3) Eosinophils # (Auto) 0.1 10 ^3/uL (0-0.8) Basophils # (Auto) 0 10 ^3/uL (0-0.2) Nucleated Red Blood Cells 0.1 % Sodium Level 128 mmol/L (136-145) Potassium Level 4.5 mmol/L (3.5-5.1) Chloride Level 89 mmol/L (98-107) Carbon Dioxide Level 29 mmol/L (20-31) Anion Gap 10 (5-15) Blood Urea Nitrogen 25 mg/dL (9-23) Creatinine 1.17 mg/dL (0.700-1.30) Glomerular Filtration Rate Calc 70 mL/min (>90) BUN/Creatinine Ratio 21.4 (10.0-20.0) Serum Glucose 113 mg/dL (74-106) Calcium Level 9.3 mg/dL (8.7-10.4) Total Bilirubin 4.2 mg/dL (0.2-1.0) Aspartate Amino Transferase (AST) 38 U/L (13-40) Alanine Aminotransferase (ALT) 23 U/L (7-40) Alkaline Phosphatase 183 U/L (46-116) Total Protein 6.8 g/dL (5.7-8.2) Albumin 4.0 g/dL (3.2-4.8) Troponin I High Sensitivity 20 ng/L (</=54) Prothrombin Time 14.0 sec (9.3-11.8) Prothrombin Time INR 1.36 (0.9-1.15) Activated Partial Thromboplast Time 29.6 SEC (24.5-34.5) Magnesium Level 2.1 mg/dL (1.6-2.6) B-Type Natriuretic Peptide 2076.46 pg/mL (0-100) Other Laboratory Tests 06/17/25 06:54 Brief Hx & Hospital Course: The patient is a 65-year-old male with a past medical history of hypertension, dyslipidemia, type 2 diabetes mellitus, chronic systolic heart failure with reduced ejection fraction of 6%, severe pulmonary hypertension, severe mitral regurgitation, paroxysmal atrial fibrillation, coronary artery disease status post PCI with four stents, liver cirrhosis, and NURSE DISCHARGE PLANNER-D placement in 2018. He presented to [facility] emergency department with chest pain after his implantable cardioverter-defibrillator delivered a shock while he was playing with his granddaughter. The chest pain was initially severe and associated with shortness of breath, nausea, and vomiting. He was admitted for further evaluation, including device interrogation and cardiac monitoring. The NURSE DISCHARGE PLANNER-D device was interrogated by Koko from [employer]. The interrogation confirmed that the patient did not receive any shock. Current treatment was continued without changes. On admission, chest X-ray showed mild cardiomegaly and suspected peripheral interstitial edema without pleural effusion or pneumothorax. Echocardiogram revealed markedly dilated cardiac chambers, severe global hypokinesis, left ventricular ejection fraction of 6%, severe mitral regurgitation, severe pulmonary hypertension, and mild pericardial effusion. Cardiology was consulted for management of possible ICD shock and advanced heart failure. Pain was controlled with acetaminophen, [place], and morphine. The patient was continued on guideline-directed medical therapy including amiodarone, digoxin, bumetanide, losartan, metoprolol, atorvastatin, and diuretics. Nitroglycerin and ondansetron were administered for symptom relief. Diabetes was managed with Jardiance. The patient was placed on a cardiac diet. During hospitalization, the patients symptoms improved. creative services designer were consulted after the patient and family requested prison facility placement for therapy and medication management. Physical therapy evaluation was ordered and pending. On June 17, nursing staff found the patient sitting on the floor next to his bed after an unwitnessed fall. The patient reported that he attempted to go to the bathroom, lost his balance, and fell on his bottom. He denied hitting his head and remained awake and alert times four. Vital signs were stable. Laboratory results showed sodium 128 mmol/L, chloride 89 mmol/L, and BUN 25 mg/dL. Lumbar spine and sacral X-rays were within normal limits. The patient remained alert and hemodynamically stable for discharge prison facility. All medications and recommendations were thoroughly explained and the patient states he understands and agrees. Detailed discussion held with patient at bedside were all questions were answered and concerns were addressed. Physical examination General Appearance: Mind to moderate distress. Well developed. Well nourished. NAD Head Exam: Normal inspection Neck Exam: Normal inspection. Non-tender. Normal alignment Pulmonary/Respiratory: Chest non-tender. Clear bilateral breath sounds, no crackles, no wheezing. Cardiovascular/Chest: Regular rate and rhythm. No murmurs. No JVD. Peripheral Pulses: 2+ Radial (R). 2+ Radial (L). 2+ Pedal (R). 2+ Pedal (L) Abdominal Exam: Normal bowel sounds. Soft. normal abdomen, no visible veins, Nontender. No hepatospenomegaly. No masses Ankle Exam: Negative ankle edema Lower extremities: Negative lower extremity edema Neuro/Mental Status: A&O x4. Coherent. Thoughts/Psych: Normal thought pattern. Appropriate mood and affect. Good judgement and insight Skin Exam: Normal inspection. Normal color. Warm. Dry Operations or Procedures PATIENT: PAWAN,SUHAIL ACCT: [id number] UNIT: [id number] : 1960 LOC: [facility] ROOM / BED: [address] [place] [address] AGE / SEX: 65 / M ADM STATUS: ADM IN SERVICE 9 ORDERING PHYSICIAN: PORTER DELGADO RESIDENT PROCEDURE(s): SACCX - SACRUM AND COCCYX REASON: pain ORDER NUMBER(s): [id number], ACCESSION NUMBER(s): [id number] CLINICAL INDICATION: pain TECHNIQUE: 3 radiographic views of the sacrum/coccyx were obtained. Comparison: None FINDINGS/IMPRESSION: There is no evidence of acute fracture or dislocation. The visualized joint space is well maintained. The alignment is anatomical. There is no radiopaque foreign body. - ----- PATIENT: SUHAIL VILLALTA ACCT: [id number] UNIT: [id number] : 1960 LOC: [facility] ROOM / BED: [address] [place] [address] AGE / SEX: 65 / M ADM STATUS: ADM IN SERVICE 9 ORDERING PHYSICIAN: PORTER DELGADO RESIDENT PROCEDURE(s): LUMB2 - LUMBAR SPINE 3 VIEW REASON: back pain ORDER NUMBER(s): [id number], ACCESSION NUMBER(s): [id number] INDICATION: back pain COMPARISON: None TECHNIQUE: 2 views of the lumbar spine were obtained. FINDINGS: Moderate multilevel degenerative disc disease of the lumbosacral spine. No acute fracture, vertebral compression deformity or aggressive osseous lesions. The paravertebral soft tissues are grossly unremarkable. IMPRESSION: No acute fracture. ------ PATIENT: SUHAIL VILLALTA ACCT: [id number] UNIT: [id number] : 1960 LOC: ER ROOM / BED: / AGE / SEX: 65 / M ADM STATUS: REG ER SERVICE 1656 ORDERING PHYSICIAN: CHRIS ZAIDI MD PROCEDURE(s): CXRP - CHEST PORTABLE REASON: CP ORDER NUMBER(s): [id number], ACCESSION NUMBER(s): [id number] EXAM: XY CHEST PORTABLE HISTORY: CP TECHNIQUE: 1 view of the chest COMPARISON: XY CHEST XRAY 1 VIEW on DOS: 05/23/25 FINDINGS/IMPRESSION: LUNGS: No pleural effusion, consolidation, or pneumothorax. Suspected peripheral interstitial edema MEDIASTINUM: Mvyx-jc-djnyfurn cardiomegaly. Left anterior chest cardiac device. BONES: No acute osseous abnormality. OTHER: None. ------ PATIENT: SUHAIL VILLALTA ACCT: [id number] : 1960 LOC: [facility] ROOM / BED: 1011-ERT / A AGE / SEX: 65 / M ADM STATUS: ADM IN SERVICE UNIT: [id number] ORDERING PHYSICIAN: CHRIS ZAIDI MD PROCEDURE(s): EKG - ELECTROCARDIGRAM ORDER NUMBER(s): [id number], ACCESSION NUMBER(s): [id number] [facility] Test Date: 2025-06-14 Test Time: 19:44:42 Pat Name: SUHAIL VILLALTA Department: ED Room: [address] [place] [address] Gender: M Uranium Processing Supervisor: AIMEE : 1960 Requested By: CHRIS ZAIDI Order Number: [id number] Reading MD: Measurements Intervals [place] Rate: 87 P: 3 LA: 223 QRS: 226 QRSD: 161 T: 53 QT: 434 QTc: 522 Interpretive Statements Sinus rhythm Prolonged LA interval Nonspecific intraventricular conduction delay Probable anteroseptal infarct, old Repol abnrm suggests ischemia, lateral leads Please click the below link to view image of tracing. - ----- PATIENT: SUHAIL VILLALTA ACCT: [id number] : 1960 LOC: [facility] ROOM / BED: [address] [place] [address] AGE / SEX: 65 / M ADM STATUS: ADM IN SERVICE UNIT: [id number] ORDERING PHYSICIAN: CHRIS ZAIDI MD PROCEDURE(s): EKG - ELECTROCARDIGRAM ORDER NUMBER(s): [id number], ACCESSION NUMBER(s): [id number] [facility] Test Date: 2025-06-14 Test Time: 16:54:22 Pat Name: SUHAIL VILLALTA Department: ED Room: [address] [place] [address] Gender: M Uranium Processing Supervisor: JESSE : 1960 Requested By: CHRIS ZAIDI Order Number: [id number] Reading MD: Measurements Intervals [place] Rate: 104 P: 170 LA: 210 QRS: 245 QRSD: 155 T: 62 QT: 388 QTc: 511 Interpretive Statements Sinus or ectopic atrial tachycardia Borderline prolonged LA interval Nonspecific IVCD with LAD Inferior infarct, acute (LCx) Anterior infarct, old Please click the below link to view image of tracing. - ----- PATIENT: SUHAIL VILLALTA ACCT: [id number] : 1960 LOC: ER ROOM / BED: / AGE / SEX: 65 / M ADM STATUS: REG ER SERVICE UNIT: [id number] ORDERING PHYSICIAN: CHRIS ZAIDI MD PROCEDURE(s): EKG - ELECTROCARDIGRAM ORDER NUMBER(s): [id number], ACCESSION NUMBER(s): [id number] [facility] Test Date: 2025-06-14 Test Time: 17:53:41 Pat Name: SUHAIL VILLALTA Department: Room: Gender: M Uranium Processing Supervisor: JUAN CARLOS : 1960 Requested By: CHRIS ZAIDI Order Number: [id number] Reading MD: Gabriela Shah Measurements Intervals [place] Rate: 93 P: 71 LA: 168 QRS: -75 QRSD: 163 T: 97 QT: 422 QTc: 525 Interpretive Statements Sinus rhythm Probable left atrial enlargement LVH with IVCD, LAD and secondary repol abnrm Inferior infarct, acute (RCA) Prolonged QT interval Probable RV involvement, suggest recording right precordial leads Electronically Signed On 06-14-2025 18:32:43 PST by Gabriela Shah Please click the below link to view image of tracing. DICTATED BY:GABRIELA SHAH Sr., MD DICTATED DATE/TIME:06/14/25 5157 ELECTRONICALLY SIGNED BY:GABRIELA SHAH Sr., MD 06/14/25 009 - ----- Condition at Discharge: Stable Final Diagnosis/Problems List #Chronic systolic heart failure with reduced ejection fraction 6%, status post NURSE DISCHARGE PLANNER- D with fracture NURSE DISCHARGE PLANNER lead #Acute on chronic hypoxic respiratory failure secondary to CHF #Possible ICD shock #Chest pain, rule out ACS #Rule out arrhythmia #Chronic, End-stage nonischemic dilated cardiomyopathy #History of CAD, status post PTCA x4 #Chronic Severe mitral regurgitation #Chronic pulmonary hypertension (RVSP 52 mm Hg) #Peripheral interstitial edema due to above #Type 2 diabetes mellitus Discharge Disposition: [facility] Facility Discharge Instruct/Medications Diet: Cardiac 2g Na,low cholest Activity: No Restrictions, As Tolerated Follow Up/Referral: Follow up with SNF Medications: continue home medications Scheduled Amiodarone HCl (Amiodarone HCl), 1 TAB PO BID Apixaban Base (Eliquis), 5 MG PO BID Aspirin (Aspirin Low Dose), 1 TAB PO DAILY Atorvastatin Calcium (Atorvastatin Calcium), 1 TAB PO DAILY Bumetanide (Bumetanide), 1 TAB PO DAILY Cholecalciferol (Vitamin D3), 1 TAB PO DAILY, (Reported) Dapagliflozin Propanediol (Farxiga), 10 MG PO DAILY Digoxin (Digoxin), 1 TAB PO DAILY, (Reported) Losartan Potassium (Losartan Potassium), 25 MG PO DAILY Metoprolol Succinate (Metoprolol Succinate Er), 1 TAB PO DAILY Nitroglycerin (Ntrostat Sublingual), 0.4 MG SL PRN, (Reported) Pantoprazole Sodium Sesquihydr (Pantoprazole Sodium), 1 TAB PO DAILY, (Reported) Spironolactone (Spironolactone), 1 TAB PO DAILY Discharge Statement: "Patient was advised to return to the ER or call 911 if any headaches, dizziness, shortness of breath, chest pain, abdominal pain, bleeding, fevers, or worsening of medical condition. Patient was counseled about treatment plan, medications, possible side effects, patientverbalized understanding. All questions were answered to the best of my ability. This discharge took greater then 30 minutes in planning, reviewing documentation, counseling the patient, and discussing with other team members." ASSESSMENT ASSESSMENT Assessment #Chronic systolic heart failure with reduced ejection fraction 6%, status post NURSE DISCHARGE PLANNER- D with fracture NURSE DISCHARGE PLANNER lead #Acute on chronic hypoxic respiratory failure secondary to CHF #Possible ICD shock #Chest pain, rule out ACS #Rule out arrhythmia #Chronic, End-stage nonischemic dilated cardiomyopathy #History of CAD, status post PTCA x4 #Chronic Severe mitral regurgitation #Chronic pulmonary hypertension (RVSP 52 mm Hg) #Peripheral interstitial edema due to above #Type 2 diabetes mellitus Date of Service: Jun 17, 2025 Billing Provider: ABHIJIT MCGREGOR MD Common Visit Codes: 42742-TGH/OBS DISCH DAY >30min ANTOINE CATALAN RESIDENT Jun 17, 2025 15:32
[2025-06-17] MEDS: ACETAMINOPHEN 325 MG TAB PO PRN (17:08)
[2025-06-17] MEDS: MORPHINE SULFATE INJ 2 MG/ml SYRG IV ONE (21:05)
--- NOTE | 2025-06-17 23:46 | DVHPN2 ---
Progress Note - Dictate Date Seen: Jun 17, 2025 Medical Necessity Reason Pt with a Central, PICC or Fol: No Subjective Patient was seen and evaluated in follow up. Early this morning, the patient was found on the floor sitting next to his bed by nursing staff. Patient reported that he needed to go to the bathroom and he got out of bed and lost his balance and fell on his bottom. Patient denies hitting his head. Patient is awake and alert x4. NA 128, CL 89, BUN 25. L-spine and sacral x-ray are WNL. Telemetry reviewed. vital signs Vital Sign Date Time Temp Pulse Resp B/P (MAP) Pulse Ox O2 Delivery O2 Flow Rate FiO2 06/17/25 13:00 98.0 68 17 120/72 (88) 98 98.0 06/16/25 20:00 Room Air* 0 21 Total Intake and Output 06/16/25 06/16/25 06/17/25 15:00 23:00 07:00 Intake Total 650 ml 600 ml Balance 650 ml 600 ml medications Current Medications Medications Dose Ordered Sig/Brian Route Start Time Stop Time Status Last Admin Dose Admin Nitroglycerin 0.4 mg Q5MINP PRN SL 06/14/25 20:00 Morphine Sulfate 2 mg Q30M PRN IV 06/14/25 20:00 Amiodarone HCl 200 mg Q12HR PO 06/14/25 22:00 06/17/25 09:22 200 MG Atorvastatin Calcium 40 mg HS PO 06/14/25 22:00 06/16/25 21:40 40 MG Digoxin 0.125 mg DAILY PO 06/15/25 10:00 06/17/25 09:22 0.125 MG Losartan Potassium 25 mg DAILY PO 06/15/25 10:00 Metoprolol Succinate 25 mg DAILY PO 06/15/25 10:00 06/17/25 09:23 25 MG Spironolactone 25 mg DAILY PO 06/15/25 10:00 06/17/25 09:24 25 MG Bumetanide 1 mg BIDD PO 06/15/25 06:00 06/16/25 18:27 1 MG Ondansetron HCl 4 mg Q4HP PRN IV 06/14/25 20:30 06/17/25 02:19 4 MG Acetaminophen 650 mg Q6HP PRN PO 06/14/25 20:30 Empaglifozin 10 mg DAILY PO 06/15/25 10:00 06/17/25 09:22 10 MG Acetaminophen/ Hydrocodone Bitart 1 tab Q12HP PRN PO 06/15/25 11:45 06/17/25 09:06 1 TAB Melatonin 10 mg HS PRN PO 06/16/25 22:30 06/16/25 22:27 10 MG objective GENERAL: Alert and oriented x 3. No acute distress. EYES: PERRL, EOMI. Anicteric. HENT: Moist mucous membranes. LUNGS: Clear to auscultation bilaterally. CARDIOVASCULAR: Regular rate and rhythm. ABDOMEN: Soft, non-tender and non-distended. EXTREMITIES: No edema. NEUROLOGIC: No focal neurological deficits. SKIN: Warm, dry. laboratory and microbiology Laboratory Tests 06/17/25 06:54 Test 06/17/25 06:54 Range/Units Serum Glucose 113 H 74-106 mg/dL Problem List Chronic systolic heart failure with reduced ejection fraction 6%, status post GREENHOUSE STAFF- D with fracture GREENHOUSE STAFF lead Acute on chronic hypoxic respiratory failure secondary to CHF. Possible ICD shock. Chest pain. End-stage nonischemic dilated cardiomyopathy. History of CAD, status post PTCA x4. Chronic severe mitral regurgitation. Chronic pulmonary hypertension (RVSP 52 mm Hg). Peripheral interstitial edema. Type 2 diabetes mellitus. Assessment/Plan Continued all current supportive medical care. Morphine and Redfox for pain management. Amiodarone. Lipitor, Metoprolol. Diuretics with Bumex. Digoxin. Losartan. Nitro SL. Additional plan as per the hospital course. Plan discussed with: Patient CHAITANYA CULP MD Jun 17, 2025 14:32
[2025-06-18 01:00] VITALS: BP 107/62; PULSE 64; RESP 18; TEMP 97.6; O2SAT 99
[2025-06-18 05:00] VITALS: BP 93/61; PULSE 66; RESP 17; TEMP 97.8; O2SAT 98
[2025-06-18 08:00] VITALS: PULSE 58; RESP 17
[2025-06-18 08:41] VITALS: BP 102/67; PULSE 58; RESP 16; TEMP 97.9; O2SAT 99
[2025-06-18 13:00] VITALS: BP 103/73; PULSE 58; RESP 17; TEMP 97.9; O2SAT 97
[2025-06-18 13:31] VITALS: BP 102/67; PULSE 58; TEMP 36.6
--- NOTE | 2025-06-18 15:07 | DVHPNRES ---
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 He reports that approximately one hour prior to arrival, while playing with his granddaughter, his implantable cardioverter-defibrillator (AICD) delivered a shock. Immediately after the shock, he developed left-sided chest pain, initially rated 9/10, now 4/10. The pain was associated with shortness of breath, nausea, and vomiting. The patient was admitted for further assessment with CDI interrogation and management. On 06/16/25, Patient was seen and examined at bedside. Overnight events were reviewed. The patient reports improvement in his symptoms, no complains. Patients family requested [facility] placement and asked to speak with social work specialist. After discussion, ordered a physical therapy evaluation to determine if the patient qualifies for [facility] facility transfer. On 06/17/25, nursing staff found the patient sitting on the floor next to his bed after an unwitnessed fall. The patient reported that he attempted to go to the bathroom, lost his balance, and fell on his bottom. He denied hitting his head and remained awake and alert times four. Vital signs were stable. Laboratory results showed sodium 128 mmol/L, chloride 89 mmol/L, and BUN 25 mg/dL. Lumbar spine and sacral X-rays were within normal limits. The patient remained alert and hemodynamically stable for discharge [facility] facility. On 06/18/25, on evaluation today, he states he is well, pain is manageable. The patient received physical therapy this morning, showed improvement, and decided to be discharged home. The patient refused to go to a [facility] facility (SNF). His vitals have remained stable for discharge home, follow up visit in discharge clinic. All medications and recommendations were thoroughly explained and the patient states he understands and agrees. Detailed discussion held with patient at bedside were all questions were answered and concerns were addressed. Objective vital signs Vital Sign Date Time Temp Pulse Resp B/P (MAP) Pulse Ox O2 Delivery O2 Flow Rate FiO2 06/18/25 13:31 36.6 58 06/18/25 13:00 17 103/73 (83) 97 06/18/25 08:00 Room Air* 0 21 Total Intake and Output 06/17/25 06/17/25 06/18/25 15:00 23:00 07:00 Intake Total 1078 ml 450 ml Balance 1078 ml 450 ml medications Current Medications Medications Dose Ordered Sig/Brian Route Start Time Stop Time Status Last Admin Dose Admin Nitroglycerin 0.4 mg Q5MINP PRN SL 06/14/25 20:00 Morphine Sulfate 2 mg Q30M PRN IV 06/14/25 20:00 Amiodarone HCl 200 mg Q12HR PO 06/14/25 22:00 06/17/25 21:05 200 MG Atorvastatin Calcium 40 mg HS PO 06/14/25 22:00 06/17/25 21:05 40 MG Digoxin 0.125 mg DAILY PO 06/15/25 10:00 06/17/25 09:22 0.125 MG Losartan Potassium 25 mg DAILY PO 06/15/25 10:00 Metoprolol Succinate 25 mg DAILY PO 06/15/25 10:00 06/17/25 09:23 25 MG Spironolactone 25 mg DAILY PO 06/15/25 10:00 06/17/25 09:24 25 MG Bumetanide 1 mg BIDD PO 06/15/25 06:00 06/17/25 17:02 1 MG Ondansetron HCl 4 mg Q4HP PRN IV 06/14/25 20:30 06/18/25 00:50 4 MG Acetaminophen 650 mg Q6HP PRN PO 06/14/25 20:30 06/17/25 17:08 650 MG Empaglifozin 10 mg DAILY PO 06/15/25 10:00 06/18/25 11:05 10 MG Acetaminophen/ Hydrocodone Bitart 1 tab Q12HP PRN PO 06/15/25 11:45 06/17/25 09:06 1 TAB Melatonin 10 mg HS PRN PO 06/16/25 22:30 06/16/25 22:27 10 MG Examination General Appearance: Mind to moderate distress. Well developed. Well nourished. NAD Head Exam: Normal inspection Neck Exam: Normal inspection. Non-tender. Normal alignment Pulmonary/Respiratory: Chest non-tender. Clear bilateral breath sounds, no crackles, no wheezing. Cardiovascular/Chest: Regular rate and rhythm. No murmurs. No JVD. Peripheral Pulses: 2+ Radial (R). 2+ Radial (L). 2+ Pedal (R). 2+ Pedal (L) Abdominal Exam: Normal bowel sounds. Soft. normal abdomen, no visible veins, Nontender. No hepatospenomegaly. No masses Ankle Exam: Negative ankle edema Lower extremities: Negative lower extremity edema Neuro/Mental Status: A&O x4. Coherent. Thoughts/Psych: Normal thought pattern. Appropriate mood and affect. Good judgement and insight Skin Exam: Normal inspection. Normal color. Warm. Dry laboratory and microbiology Laboratory Tests 06/17/25 06:54 Test 06/17/25 06:54 Range/Units Serum Glucose 113 H 74-106 mg/dL Labs and/or images reviewed: Labs reviewed by me, Image(s) reviewed by me Problem List/Assessment/Plan Problem List/Assessment/Plan #Chronic systolic heart failure with reduced ejection fraction 6%, status post EARTH BORING MACHINE OPERATOR- D with fracture EARTH BORING MACHINE OPERATOR lead #Acute on chronic hypoxic respiratory failure secondary to CHF #Chest pain, rule out ACS #Rule out arrhythmia #Chronic, End-stage nonischemic dilated cardiomyopathy #History of CAD, status post PTCA x4 #Chronic Severe mitral regurgitation #Chronic pulmonary hypertension (RVSP 52 mm Hg) #Peripheral interstitial edema due to above Cardiology consult Sacrum and Coccyx X-Ray:There is no evidence of acute fracture or dislocation. The visualized joint space is well maintained. The alignment is anatomical. There is no radiopaque foreign body. Lumbar Spine X-Ray: Moderate multilevel degenerative disc disease of the lumbosacral spine. No acute fracture, vertebral compression deformity or aggressive osseous lesions. Chest X-ray: No pleural effusion, consolidation, or pneumothorax. Suspected peripheral interstitial edema Echocardiogram (12/28/24) : remarkably dilated all cardiac chambers. severe hypokinesis of all cardiac chambers. lv ef is only 6%. normal valves. mild pericardial effusion. pacemaker in right cardiac chambers. severe mitral valve regurgitation. severe pulmonary hypertension. rvsp is 52 mm of hg and is very high pain management with Tylenol, [place] and Morphine Amiodarone 200 MG PO q12h Atorvastatin 40 MG PO hs Bumex 1 MG PO bid Lanoxin 0.125 MG PO daily Losartan 25 MG PO daily Metoprolol 25 MG Po daily Nitroglycerin 0.4 MG SL q5minp Zofran 4 Mg IV q4h Lasix 40 MG IV once #Type 2 diabetes mellitus Jardiance 10 MG PO daily Diet: Cardiac Goals of care: Full code, discussed for >30 minutes on 06/18/25 Plan discussed with patient Plan discussed with Dr. Sesay Plan discussed with: Patient My Orders My Orders Orders - ANTOINE CATALAN Procedure Category Date Status Time Discharge DISCHARGE 06/18/25 Transmitted 10:35 Schedule For Dc JIMMIE 06/18/25 In Process Clinic F/U 10:37 * Metal Tank Erector CONS 06/18/25 Transmitted Consult Date of Service: Jun 18, 2025 Billing Provider: ABHIJIT SESAY MD Common Visit Codes: 64760-NUA/OBS DISCH DAY >30min ANTOINE CATALAN Jun 18, 2025 15:07
--- NOTE | 2025-06-19 00:13 | DVHPN2 ---
Progress Note - Dictate Date Seen: Jun 18, 2025 Medical Necessity Reason Pt with a Central, PICC or Fol: No Subjective Patient was seen and evaluated in follow up. Patient has no new complaints at this time. Patient denies any cardiac symptoms. Patient is cardiac stable for discharge. Telemetry reviewed. vital signs Vital Sign Date Time Temp Pulse Resp B/P (MAP) Pulse Ox O2 Delivery O2 Flow Rate FiO2 06/18/25 13:31 36.6 58 06/18/25 13:00 17 103/73 (83) 97 06/18/25 08:00 Room Air* 0 21 Total Intake and Output 06/18/25 06/18/25 06/19/25 15:00 23:00 07:00 Intake Total 1100 ml Balance 1100 ml objective GENERAL: Alert and oriented x 3. No acute distress. EYES: PERRL, EOMI. Anicteric. HENT: Moist mucous membranes. LUNGS: Clear to auscultation bilaterally. CARDIOVASCULAR: Regular rate and rhythm. ABDOMEN: Soft, non-tender and non-distended. EXTREMITIES: No edema. NEUROLOGIC: No focal neurological deficits. SKIN: Warm, dry. 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 Possible ICD shock. Chest pain. End-stage nonischemic dilated cardiomyopathy. History of CAD, status post PTCA x4. Chronic severe mitral regurgitation. Chronic pulmonary hypertension (RVSP 52 mm Hg). Peripheral interstitial edema. Type 2 diabetes mellitus. Assessment/Plan Continued all current supportive medical care. Morphine and [place] for pain management. Amiodarone. Lipitor, Metoprolol. Diuretics with Bumex. Digoxin. Losartan. Nitro SL. Additional plan as per the hospital course. Plan discussed with: Patient CHAITANYA CULP MD Jun 19, 2025 00:13
--- NOTE | 2025-06-23 07:51 | ECG ---
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
== END 2025-06-18 18:30 | disposition home or self-care (01) | DRG 133 ==
LOC: ER 16:48 → OVERFLOW 19:52 → TELE-WESTW 06-15 16:00
PROVIDERS: ADMIT Internal Medicine Geriatric Medicine; ATTEND Internal Medicine Geriatric Medicine
PROC: 4B02XTZ Measurement of Cardiac Defibrillator, External Approach (ICD-10-PCS; principal; 2025-06-17)
DX: J96.21 Acute and chronic respiratory failure with hypoxia (principal); R57.8 Other shock; I27.20 Pulmonary hypertension, unspecified; I24.9 Acute ischemic heart disease, unspecified; I50.22 Chronic systolic (congestive) heart failure; I34.0 Nonrheumatic mitral (valve) insufficiency; E11.9 Type 2 diabetes mellitus without complications; I11.0 Hypertensive heart disease with heart failure; K74.60 Unspecified cirrhosis of liver; M94.0 Chondrocostal junction syndrome [Tietze]; I42.0 Dilated cardiomyopathy; I25.10 Atherosclerotic heart disease of native coronary artery without angina pectoris; I48.0 Paroxysmal atrial fibrillation; E78.5 Hyperlipidemia, unspecified; Z95.810 Presence of automatic (implantable) cardiac defibrillator; Z98.61 Coronary angioplasty status; Z91.013 Allergy to seafood; Z79.82 Long term (current) use of aspirin; Z79.899 Other long term (current) drug therapy; Z87.891 Personal history of nicotine dependence; Z82.49 Family history of ischemic heart disease and other diseases of the circulatory system; Z83.3 Family history of diabetes mellitus; Z82.3 Family history of stroke
CPT/HCPCS: 36415; 71045; 72100; 72220; 80048; 80053; 83735; 83880; 84484; 85025; 85610; 85730; 93005; 96374; 96375; 97110; 97116; 97163; 99291; G0378; J1885; J2405

== ENCOUNTER 2025-07-03 15:42 | Inpatient (IN) | payer MEDICAID ==
[~2025-07-03] VITALS: Ht 182.9 cm; Wt 74.7 kg
[2025-07-03 16:49] LABS: Hematocrit 40.5 % (41.0-53.0); Hemoglobin 13.5 g/dL (13.5-17.5); Mean Corpuscular Hemoglobin 31.0 pg (28.0-32.0); Mean Corpuscular Volume 93.2 fL (80.0-100.0); Nucleated Red Blood Cells % 0.1 %
[2025-07-03 17:10] LABS: Alanine Aminotransferase 28 U/L (7-40); Calcium 9.6 mg/dL (8.7-10.4); Carbon Dioxide 24 mmol/L (20-31); Glucose 76 mg/dL (74-106)
[2025-07-03 17:11] LABS: Albumin 4.1 g/dL (3.2-4.8); Anion Gap 12 (5-15); BUN/Creatinine Ratio 12.8 (10.0-20.0); Blood Urea Nitrogen 14 mg/dL (9-23); Total Protein 7.0 g/dL (5.7-8.2)
[2025-07-03 17:15] LABS: Alkaline Phosphatase 196 U/L (46-116); Bilirubin, Total 4.9 mg/dL (0.2-1.0); Chloride 98 mmol/L (98-107); Potassium 3.2 mmol/L (3.5-5.1); Sodium 134 mmol/L (136-145)
--- NOTE | 2025-07-03 17:27 | ED.PDOC ---
HPI Comments Patient is a 65-year-old male with past medical history of heart failure with reduced ejection fraction 6% secondary to dilated cardiomyopathy s/p MANAGER SERVICE DESK D, pulmonary embolism, CAD s/p PCI JAMEL x4, atrial fibrillation, diabetes, pulmonary hypertension, severe mitral regurgitation, V-tach, hypertension, dyslipidemia, liver cirrhosis, who comes in due to chest pain. According to the patient, he has been experiencing chest pain for the past 3 days which he describes as sharp, constant, 8/10 in intensity, worsened with lying down and partly relieved by nitroglycerin, associated with worsening shortness of breaths. Patient notes he has been requiring his home oxygen 2 L more frequently over the last 3 days, noticed to have dyspnea Functional Class III. Also complains of nausea and vomiting, 2 episodes nonbilious nonbloody, vomitus containing food particles. Uses a walker to ambulate at baseline. Past medical history:heart failure with reduced ejection fraction 6% secondary to dilated cardiomyopathy s/p MANAGER SERVICE DESK D, pulmonary embolism, CAD s/p PCI JAMEL x4, atrial fibrillation, diabetes, pulmonary hypertension, severe mitral regurgitation, V-tach, hypertension, dyslipidemia, liver cirrhosis Past surgical history: AICD, PTCA Home medications: Digoxin, losartan, spironolactone, bumetanide, Farxiga, Coreg, aspirin, atorvastatin, nitroglycerin Past Hospitalization: Discharged from the [facility] on 06/20/25 after being treated for AICD Social & Personal history: Shock denies smoking, alcohol, drugs. Remote history of polysubstance abuse. Lives alone. Patient seen and examined at bedside. Patient is alert and oriented to time, place person and responding to all questions. General: Chills Eyes: No Pain, No Vision change, No Conjunctivae inflammation, No Eyelid inflammation, No Other, No Redness ENT: No Ear pain, No Ear discharge, No Nose pain, No Nose discharge, No Nose congestion, No Mouth pain, No Mouth swelling, No Throat pain, No Throat swelling, No Other Cardiovascular: No Chest Pain, No Palpitations, No Orthopnea, No Paroxysmal No Dyspnea, No Edema, No Lt Headedness, No Other Respiratory: No Cough, No Dry, Shortness of breath, No SOB with exertion, No Wheezing, No Hemoptysis, No Pleuritic Pain, No Sputum, No Other Gastrointestinal: Nausea, Vomiting, No Abdominal Pain, Diarrhea, No Constipation, No Melena, No Hematochezia, No Other Genitourinary: No Dysuria, No Frequency, No Incontinence, No Hematuria, No Retention, No Other Musculoskeletal: No other, No neck pain, No shoulder pain, No arm pain, No back pain, No hand pain, No leg pain, No foot pain Skin: No Rash, No Lesions, No Jaundice, No Bruising, No Other Attestation note: Dr. Narvaez: I was the supervising attending for this ED encounter. Please see the resident's notes. I was available for questions and consultations. Differential diagnosis: Ddx include but not limitied to gastritis, musculoskeletal pain, radiculopathy, atypical chest pain, dissection, aneurysm, ACS, unstable angina, hiatal hernia, GERD, anxiety, costochondritis, PE, pneumothroax, neoplasm, cardiac ischemia, drug abuse, anemia. MDM: MDM: patient presented with the above HPI.-cardiac-----workup was initiated. patient was found with the above mentioned diagnosis. the following medications were ordered: please refer to order lists of meds and tests obtained by myself Dr. Narvaez. Patient ED course and VS have been stabilized. Patient has been reassessed in the ED and remained in a stable condition. Pertinent incidental findings were discussed with the patient and/or family. Patient/family voices understanding and is agreeable with plan. Patient has been observed in the ED adequate length of time to insure improvement/stability. Escalation of care considered: Consideration of escalation to observation or admission Patient was ADMITTED to the medicine team for further evaluation and treatment of their presentation. All the reports of any imaging studies that were ordered by myself were reviewed by myself. Chief Complaint: Chest Pain Time Seen by MD: 16:35 Primary Care Provider: GABRIELA Reviewed Notes: Allergies Allergies: Coded Allergies: Shellfish Allergy (Unverified Allergy, Severe, 09/11/23) CRAB Uncoded Allergies: CRAB (Allergy, Severe, 08/06/17) Home Meds Active Scripts Metoprolol Succinate (Metoprolol Succinate Er) 25 Mg Tab, 1 TAB PO DAILY for 30 Days, #30 TAB 3 Refills Prov:EVELINE MARTINEZ RESIDENT 05/26/25 Apixaban Base (ELIQUIS) 5 Mg Tab, 5 MG PO BID for 30 Days, #60 TAB 1 Refill Prov:MEME JAIME MD 05/14/25 Atorvastatin Calcium (ATORVASTATIN CALCIUM) 40 Mg Tab, 1 TAB PO DAILY, #90 TAB 1 Refill Prov:MEME JAIME MD 05/14/25 Losartan Potassium (Losartan Potassium) 25 Mg Tab, 25 MG PO DAILY for 30 Days, #30 TAB 0 Refills Prov:MICAELA WRIGHT 04/21/25 Amiodarone HCl (Amiodarone HCl) 200 Mg Tab, 1 TAB PO BID for 30 Days, #60 TAB Prov:MICAELA WRIGHT 04/21/25 Spironolactone (Spironolactone) 25 Mg Tab, 1 TAB PO DAILY for 30 Days, #30 TAB Prov:MICAELA WRIGHT 04/21/25 Bumetanide (Bumetanide) 1 Mg Tab, 1 TAB PO DAILY for 30 Days, #30 TAB Prov:MICAELA WRIGHT 04/21/25 Aspirin (Aspirin Low Dose) 81 Mg Tab, 1 TAB PO DAILY for 30 Days, #30 TAB Prov:MICAELA WRIGHT 04/21/25 Dapagliflozin Propanediol (Farxiga) 10 Mg Tab, 10 MG PO DAILY for 30 Days, #30 TAB Prov:MICAELA WRIGHT 04/21/25 Reported Medications Pantoprazole Sodium Sesquihydr (Pantoprazole Sodium) 40 Mg Tab, 1 TAB PO DAILY for 30 Days, #30 05/12/24 Cholecalciferol (VITAMIN D3) 2,000 Unit Tab, 1 TAB PO DAILY 01/09/24 Digoxin (Digoxin) 125 Mcg Tab, 1 TAB PO DAILY 01/09/24 Nitroglycerin (NTROSTAT SUBLINGUAL) 0.4 Mg Sl, 0.4 MG SL PRN, TAB *MAY REPEAT EVERY 5 MINUTES X 3 TOTAL IF NO RELIEF, INITIATE ANALGESIC THERAPY. NOTIFY PHYSICIAN *Do not crush. 05/15/23 Information Source: Patient Mode of Arrival: Ambulatory Severity: Moderate Timing: Days Duration: Since onset Past Medical History PAST MEDICAL HISTORY: AFIB, Angina, CAD, CHF, DM, High Lipids, HTN, PE Surgical History: Pacemaker, PTCA Family History Family History: No family hx of Cancer, No family hx ofKidney bhavik, No family hx of Liver bhavik, No family hx of Lung bhavik, No family hx of Stroke, Family hx of DM, Family hx of heart bhavik, Family hx of HTN Social History Smoker: Quit Greater Than 1 Year, Cigarettes Alcohol: Sober Drugs: Denies Drug Use Lives In: Home Physical Exam General Appearance: Mild Distress HEENT: Normal ENT Inspection, Pale Conjuntivae (L), Pale Conjuntivae (R), PERRL/EOMI Neck: None, Non-Tender, Normal, Normal Inspection Respiratory: Crackles Cardiovascular: Irregular, No Murmur, None Breast Exam: Deferred Gastrointestinal: Non Tender, No Pulsatile Mass, Normal Bowel Sounds Genitalia: Deferred Pelvic: Deferred Rectal: Rectal Exam not done Extremities: Leg edema, No calf tenderness, Normal inspection, Normal range of motion, Non-tender Neurologic: Alert, No Motor Deficits, No Sensory Deficits Cerebellar Function: NOT DONE Reflexes: NOT DONE Skin: Dry, Normal Color, Warm Peripheral Pulses: 2+ dorsalis pedis (R), 2+ dorsalis pedis (L) Lymphatic: NOT DONE Was a procedure done? Was a procedure done?: No CP Differential Dx Differential Diagnosis: Angina Differential Diagnosis: CHF Differential Diagnosis: Myocardial Infarction, Pneumonia X-Ray, Labs, Meds, VS Vital Signs Date Time Temp Pulse Resp B/P (MAP) Pulse Ox O2 Delivery O2 Flow Rate FiO2 07/03/25 17:58 104/69 07/03/25 17:37 97.9 82 18 104/69 (81) 100 97.9 07/03/25 17:37 82 07/03/25 16:57 82 07/03/25 15:50 86 07/03/25 15:45 98.1 80 17 104/4 99 98.1 Lab Test 07/03/25 19:31 07/03/25 19:10 07/03/25 17:14 07/03/25 16:00 Range/Units Urine Color Yellow Yellow Urine Clarity Clear Clear Urine pH 6.5 5.0-9.0 Urine Specific [place] 1.010 1.001-1.035 Urine Protein Negative Negative Urine Ketones Negative Negative Urine Blood Negative Negative /uL Urine Nitrite Negative Negative Urine Bilirubin Negative Negative Urine Urobilinogen 2 H Negative mg/dL Urine Leukocyte Esterase Negative Negative /uL Urine RBC 1 0 - 3 /hpf Urine Microscopic WBC 1 0-3 /HPF Urine Squamous Epithelial Cells None seen <5 /hpf Urine Bacteria None seen None Seen /hpf Urine Glucose Normal Normal mg/dL Troponin I High Sensitivity 34 31 32 </=54 ng/L White Blood Count 5.0 4.4-10.8 10^3/uL Red Blood Count 4.35 L 4.5-5.90 10^6/uL Hemoglobin 13.5 13.5-17.5 g/dL Hematocrit 40.5 L 41.0-53.0 % Mean Corpuscular Volume 93.2 80.0-100.0 fL Mean Corpuscular Hemoglobin 31.0 28.0-32.0 pg Mean Corpuscular Hemoglobin Concent 33.3 32.0-36.0 g/dL Red Cell Distribution Width 21.1 H 11.8-14.3 % Platelet Count 171 140-450 10^3/uL Mean Platelet Volume 7.5 6.9-10.8 fL Neutrophils (%) (Auto) 78.1 37.0-80.0 % Lymphocytes (%) (Auto) 8.3 L 10.0-50.0 % Monocytes (%) (Auto) 10.7 0.0-12.0 % Eosinophils (%) (Auto) 1.6 0.0-7.0 % Basophils (%) (Auto) 1.3 0.0-2.0 % Neutrophils # (Auto) 3.9 1.6-8.6 10 ^3/uL Lymphocytes # (Auto) 0.4 0.4-5.4 10 ^3/uL Monocytes # (Auto) 0.5 0-1.3 10 ^3/uL Eosinophils # (Auto) 0.1 0-0.8 10 ^3/uL Basophils # (Auto) 0.1 0-0.2 10 ^3/uL Nucleated Red Blood Cells 0.1 % Sodium Level 134 L 136-145 mmol/L Potassium Level 3.2 L 3.5-5.1 mmol/L Chloride Level 98 98-107 mmol/L Carbon Dioxide Level 24 20-31 mmol/L Anion Gap 12 5-15 Blood Urea Nitrogen 14 9-23 mg/dL Creatinine 1.09 0.700-1.30 mg/dL Glomerular Filtration Rate Calc 76 >90 mL/min BUN/Creatinine Ratio 12.8 10.0-20.0 Serum Glucose 76 74-106 mg/dL Calcium Level 9.6 8.7-10.4 mg/dL Total Bilirubin 4.9 H 0.2-1.0 mg/dL Aspartate Amino Transferase (AST) 43 H 13-40 U/L Alanine Aminotransferase (ALT) 28 7-40 U/L Alkaline Phosphatase 196 H 46-116 U/L B-Type Natriuretic Peptide 2678.45 0-100 pg/mL Total Protein 7.0 5.7-8.2 g/dL Albumin 4.1 3.2-4.8 g/dL Current Medications Medications (Trade) Dose Ordered Sig/Brian Route Start Time Stop Time Status Last Admin Ondansetron HCl (Zofran) 8 mg ONCE ONCE IV 07/03/25 17:15 07/03/25 17:16 DC 07/03/25 17:57 Furosemide (Lasix Injection) 40 mg ONCE ONCE IV 07/03/25 17:15 07/03/25 17:16 DC 07/03/25 17:58 Time of 1ST Reevaluation: 17:00 Reevaluation 1ST: Unchanged Patient Education/Counseling: Diagnosis, Treatment, Prognosis, Need For Follow Up Family Education/Counseling: No Family Present Comments MDM: patient presented with the above HPI.--cardiac----workup was initiated. patient was found with the above mentioned diagnosis. the following medications were ordered: please refer to order lists of meds and tests obtained by myself Dr. Narvaez. Patient ED course and VS have been stabilized. Patient has been reassessed in the ED and remained in a stable condition. Pertinent incidental findings were discussed with the patient and/or family. Patient/family voices understanding and is agreeable with plan. Patient has been observed in the ED adequate length of time to insure improvement/stability. Escalation of care considered: Consideration of escalation to observation or admission Patient was ADMITTED to the medicine team for further evaluation and treatment of their presentation. All the reports of any imaging studies that were ordered by myself were reviewed by myself. SEPSIS Sepsis Screen Date sepsis recognized/suspect: Jul 03, 2025 Time Sepsis recognized/suspect: 1544 Recent Procedure: No On Antibiotic Therapy: No Respiratory Rate >20: No Heart Rate >90: No Temp<36 C (96.8 F) or >38.3 C: No SBP <90 or MAP <65 mmHG: No New Acute Mental Status Change: No Is the patient on CPAP, BIPAP,: No Physician Orders Chest Portable (07/03/25 16:33) Development Chemist (07/03/25 16:33) Electrocardigram (07/03/25 17:12) Electrocardigram (07/03/25 18:12) Electrocardigram (07/03/25 20:12) Vital Signs Date Time Temp Pulse Resp B/P (MAP) Pulse Ox O2 Delivery O2 Flow Rate FiO2 07/03/25 17:58 104/69 07/03/25 17:37 97.9 82 18 104/69 (81) 100 97.9 07/03/25 17:37 82 07/03/25 16:57 82 07/03/25 15:50 86 07/03/25 15:45 98.1 80 17 104/4 99 98.1 Laboratory Tests Test 07/03/25 16:00 White Blood Count 5.0 10^3/uL (4.4-10.8) Medications Medications Dose Ordered Sig/Brian Route Start Time Stop Time Status Last Admin Dose Admin Furosemide 40 mg ONCE ONCE IV 07/03/25 17:15 07/03/25 17:16 DC 07/03/25 17:58 Ondansetron HCl 8 mg ONCE ONCE IV 07/03/25 17:15 07/03/25 17:16 DC 07/03/25 17:57 Departure 1 Departure Time of Disposition: 17:25 Impression: Primary Impression: Acute exacerbation of CHF (congestive heart failure) Qualified Codes: I50.23 - Acute on chronic systolic (congestive) heart failure Additional Impression: Acute respiratory distress Disposition: 09 ADMITTED INPATIENT Admit to: Tele Condition: Guarded Critical Care Note Critical Care Time?: No Stability Stability form required: No Heart Score Heart Score: Heart Score Response (Comments) Value History Moderate Suspicious 1 EKG Repolarization Disturb 1 Age 45-64 1 Risk Factors >3 or Hx ASHD 2 Troponin Normal limit 0 Total 5 KELVIN GUTIERREZ Jul 03, 2025 17:26 JESSI NARVAEZ DO Jul 03, 2025 21:33
[2025-07-03] MEDS: ONDANSETRON HCL 4 MG/2 ML VIAL IV ONE (17:57)
[2025-07-03] MEDS: FUROSEMIDE 40 MG/4 ML VIAL IV ONE (17:58)
--- NOTE | 2025-07-03 19:02 | DVH ---
Dual-chamber pacemaker in place pulse generator over the left chest unchanged from 06/14/2025. CHEST RADIOGRAPH INDICATION: chest pain TECHNIQUE: Single frontal view of the chest was obtained COMPARISON: XY CHEST PORTABLE on DOS: 06/14/25, XY CHEST XRAY 1 VIEW on DOS: 05/23/25, XY CHEST PORTABLE on DOS: 05/10/25 FINDINGS: Lines and Tubes: None Lungs: No focal consolidation. Pleura: No effusion. No pneumothorax. Cardiomediastinal contours: Mild cardiomegaly unchanged Bones: No acute osseous abnormality. IMPRESSION: 1. Cardiomegaly 2. No significant change from 06/14 2025
[2025-07-03 19:48] LABS: Urine Protein, UAD Negative (Negative)
[2025-07-03] MEDS ORDERED: ACETAMINOPHEN 325 MG TAB PO PRN (20:45)
--- NOTE | 2025-07-03 20:47 | DVHHPRES ---
History of Present Illness Resident Creating Document: VALENTINO FABIAN RESIDENT History of Present Illness This is a 65-year-old male with past medical history HFrEF ,dilated cardiomyopathy s/p CRTD -2018, pulmonary embolism, CAD s/p PCI JAMEL x4, atrial fibrillation, diabetes, pulmonary hypertension, severe mitral regurgitation, V- tach, hypertension, dyslipidemia, liver cirrhosis came to ER with a complaint of left-sided chest pain for 3 days which is intermittent, localized, sharp in nature, 7/10 intensity, persist less than 30 minutes, mild relieved on nitroglycerin sublingually and no aggravating factor. Patient experienced exertional shortness of breath unable to walk 1 block. And current symptoms a ssociated with nausea, fatigue, occasional dizziness. Denies any recent history of fall trauma or MVA. Patient seen by rating specialist Dr. Blake enlarged seen month ago and CRTD interrogation done which was reported normal. Patient denies any cough, SOB, headache, blurry vision, abdominal pain, dysuria or any focal weakness. Past medical history: As above Past surgical history: AICD-2018, PTCA Family history: Mother-heart attack Past Hospitalization: Discharged from the [facility] on 06/20/25 after being treated for AICD Social & Personal history: Ex-smoker quit 30 years ago , denies EtOH use or illicit drug recent. Remote history of polysubstance abuse. Lives with roommate. PCP: Unable to recall cardiology Dr. Villeda. Home med: Amiodarone 200, apixaban 5, aspirin 81, atorvastatin 40, Bumex 1 mg, vitamin-D, Farxiga, digoxin 125 mcg, losartan 25, metoprolol 25, nitroglycerin 0.4 mg, PPI, spironolactone. Carvedilol 3.125 mg, Review of Systems Constitutional: Yes: Weakness, Malaise; No: Fever, Chills, Sweats, Other Eyes: No: Pain, Vision change, Conjunctivae inflammation, Eyelid inflammation, Other, Redness ENT: No: Ear pain, Ear discharge, Nose pain, Nose discharge, Nose congestion, Mouth pain, Mouth swelling, Throat pain, Throat swelling, Other Respiratory: No: Cough, Dry, Shortness of breath, SOB with excertion, Wheezing, Hemoptysis, Pleuritic Pain, Sputum, Wheezing, Other Cardiovascular: Chest Pain, Paroxysmal Noc. Dyspnea, Other (Exertional dyspnea); No: Palpitations, Orthopnea, Edema, Lt Headedness Gastrointestinal: Nausea; No: Vomiting, Abdominal Pain, Diarrhea, Constipation, Melena, Hematochezia, Other Genitourinary: No Dysuria, No Frequency, No Incontinence, No Hematuria, No Retention, No Other Musculoskeletal: No: other, neck pain, shoulder pain, arm pain, back pain, hand pain, leg pain, foot pain Skin: No: Rash, Lesions, Jaundice, Bruising, Other Neurological: No: Weakness, Numbness, Incoordination, Change in speech, C onfusion, Seizures, Other Allergies: Coded Allergies: Shellfish Allergy (Unverified Allergy, Severe, 09/11/23) CRAB Uncoded Allergies: CRAB (Allergy, Severe, 08/06/17) Exam Vital Signs Vital Signs Date Time Temp Pulse Resp B/P (MAP) Pulse Ox O2 Delivery O2 Flow Rate FiO2 07/03/25 17:58 104/69 07/03/25 17:37 97.9 82 18 100 97.9 General Appearance: Alert, Oriented X3, Cooperative, mild distress HEENT: Atraumatic, PERRLA, EOMI Respiratory: Clear to auscultation, Normal air movement Cardiovascular: Regular rate, Normal S1, Normal S2, No murmurs Abdominal: Normal bowel sounds, Soft, No tenderness, No hepatospenomegaly Extremities: No clubbing, No cyanosis, No edema, Normal pulses Skin: No rashes, No breakdown Neuro: Normal gait, Normal speech, Strength at 5/5 X4 ext, Sensation intact Psych/Mental Status: Mental status NL, Mood NL Labs/Xrays Labs Test 07/03/25 19:31 07/03/25 19:10 07/03/25 16:00 Range/Units Urine Color Yellow Yellow Urine Clarity Clear Clear Urine pH 6.5 5.0-9.0 Urine Specific [place] 1.010 1.001-1.035 Urine Protein Negative Negative Urine Ketones Negative Negative Urine Blood Negative Negative /uL Urine Nitrite Negative Negative Urine Bilirubin Negative Negative Urine Urobilinogen 2 H Negative mg/dL Urine Leukocyte Esterase Negative Negative /uL Urine RBC 1 0 - 3 /hpf Urine Microscopic WBC 1 0-3 /HPF Urine Squamous Epithelial Cells None seen <5 /hpf Urine Bacteria None seen None Seen /hpf Urine Glucose Normal Normal mg/dL Troponin I High Sensitivity 34 </=54 ng/L White Blood Count 5.0 4.4-10.8 10^3/uL Red Blood Count 4.35 L 4.5-5.90 10^6/uL Hemoglobin 13.5 13.5-17.5 g/dL Hematocrit 40.5 L 41.0-53.0 % Mean Corpuscular Volume 93.2 80.0-100.0 fL Mean Corpuscular Hemoglobin 31.0 28.0-32.0 pg Mean Corpuscular Hemoglobin Concent 33.3 32.0-36.0 g/dL Red Cell Distribution Width 21.1 H 11.8-14.3 % Platelet Count 171 140-450 10^3/uL Mean Platelet Volume 7.5 6.9-10.8 fL Neutrophils (%) (Auto) 78.1 37.0-80.0 % Lymphocytes (%) (Auto) 8.3 L 10.0-50.0 % Monocytes (%) (Auto) 10.7 0.0-12.0 % Eosinophils (%) (Auto) 1.6 0.0-7.0 % Basophils (%) (Auto) 1.3 0.0-2.0 % Neutrophils # (Auto) 3.9 1.6-8.6 10 ^3/uL Lymphocytes # (Auto) 0.4 0.4-5.4 10 ^3/uL Monocytes # (Auto) 0.5 0-1.3 10 ^3/uL Eosinophils # (Auto) 0.1 0-0.8 10 ^3/uL Basophils # (Auto) 0.1 0-0.2 10 ^3/uL Nucleated Red Blood Cells 0.1 % Sodium Level 134 L 136-145 mmol/L Potassium Level 3.2 L 3.5-5.1 mmol/L Chloride Level 98 98-107 mmol/L Carbon Dioxide Level 24 20-31 mmol/L Anion Gap 12 5-15 Blood Urea Nitrogen 14 9-23 mg/dL Creatinine 1.09 0.700-1.30 mg/dL Glomerular Filtration Rate Calc 76 >90 mL/min BUN/Creatinine Ratio 12.8 10.0-20.0 Serum Glucose 76 74-106 mg/dL Calcium Level 9.6 8.7-10.4 mg/dL Total Bilirubin 4.9 H 0.2-1.0 mg/dL Aspartate Amino Transferase (AST) 43 H 13-40 U/L Alanine Aminotransferase (ALT) 28 7-40 U/L Alkaline Phosphatase 196 H 46-116 U/L B-Type Natriuretic Peptide 2678.45 0-100 pg/mL Total Protein 7.0 5.7-8.2 g/dL Albumin 4.1 3.2-4.8 g/dL SEPSIS Sepsis Screen Date sepsis recognized/suspect: Jul 03, 2025 Time Sepsis recognized/suspect: 1736 Recent Procedure: No On Antibiotic Therapy: No Respiratory Rate >20: No Heart Rate >90: No Temp<36 C (96.8 F) or >38.3 C: No SBP <90 or MAP <65 mmHG: No New Acute Mental Status Change: No Is the patient on CPAP, BIPAP,: No Physician Orders Chest Portable (07/03/25 16:33) [employer] Infrastructure Consultant (07/03/25 16:33) Electrocardigram (07/03/25 17:12) Electrocardigram (07/03/25 18:12) Electrocardigram (07/03/25 20:12) Admit (07/03/25 20:42) Code Status (07/03/25 20:42) Enoxaparin Sodium (Lovenox) (07/04/25 10:00) Cardiac Diet-2gna,Lofat,Lochol (07/04/25 Breakfast) Acetaminophen Tablet (Tylenol Tablet) (07/03/25 20:45) Nitroglycerin Sublingual (Ntrostat Subli (07/03/25 20:45) Morphine Sulfate Injection (07/03/25 20:45) Oxygen By Nasal Cannula (07/03/25 20:42) Stat Ekg For Chest Pain (07/03/25 20:42) Notify Md Of Changes From Base (07/03/25 20:42) Wallpaper Inspector For 24 Hours (07/03/25 20:42) Emergency Dysrhythmia Protocol (07/03/25 20:42) Rhythm Strips Once Every Shift (07/03/25 20:42) Pantoprazole Tablet (Protonix Tablet) (07/04/25 06:00) Vital Signs Date Time Temp Pulse Resp B/P (MAP) Pulse Ox O2 Delivery O2 Flow Rate FiO2 07/03/25 17:58 104/69 07/03/25 17:37 97.9 82 18 104/69 (81) 100 97.9 07/03/25 17:37 82 07/03/25 16:57 82 07/03/25 15:50 86 07/03/25 15:45 98.1 80 17 104/4 99 98.1 Laboratory Tests Test 07/03/25 16:00 White Blood Count 5.0 10^3/uL (4.4-10.8) Medications Medications Dose Ordered Sig/Brian Route Start Time Stop Time Status Last Admin Dose Admin Furosemide 40 mg ONCE ONCE IV 07/03/25 17:15 07/03/25 17:16 DC 07/03/25 17:58 40 MG Ondansetron HCl 8 mg ONCE ONCE IV 07/03/25 17:15 07/03/25 17:16 DC 07/03/25 17:57 8 MG Assessment/Plan Assessment/Plan Chest pain rule out ACS Chronic systolic congestive heart failure (HFrEF, LVEF 6%), not decompensated - status post CARE CONNECTOR-D with fractured CARE CONNECTOR lead End-stage nonischemic dilated cardiomyopathy Severe mitral regurgitation Pulmonary hypertension (RVSP 52 mmHg) History of V-tach - on p.o. amiodarone History of CAD status post 4 JAMEL Hypertensive heart disease Mixed hyperlipidemia Paroxysmal atrial fibrillation on Eliquis secondary hypercoagulability state BNP: 2678.45 Troponin:32> 31>34 CXR: Cardiomegaly, no acute cardiopulmonary disease. Aspirin Digoxin Bumetanide Coreg Atorvastatin Nitroglycerin Telemetry. EKG Cardiac device interrogation (Agorafy) as per primary team Echocardiogram on 02/25/2025: Dilated all cardiac chamber, severe hypokinesia of all cardiac chambers, EF 6%, severe pulmonary hypertension. Continue p.o. amiodarone Last coronary angiography on 09/2021 which showed nonobstructive coronary arteries. Ordered magnesium. Goal should be above 2 mg/dL Replenish potassium to obtain level above 4 mEq/L HYPOKALEMIA Potassium level 3.2 Hyponatremia Sodium 134 Transaminitis AST 43, ALT 28, ALP 196 Euthyroid sick syndrome Monitor TSH, Ft4-outpatient Diet: Cardiac GI prophylaxis: Pantoprazole DVT prophylaxis: Lovenox Goals of care discussion. More than 29 minute spent with patient. Full code status. Case discussed with Dr. Llamas Plan discussed with: Patient, Other (Nurse) My Orders Orders - VALENTINO FABIAN Procedure Category Date Status Time Admit ADMIT 07/03/25 Verified 20:42 Code Status CODE 07/03/25 Verified 20:42 Enoxaparin Sodium [facility] 07/04/25 Verified (Lovenox) 10:00 Cardiac DIET 07/04/25 Verified Diet-2gna,Lofat,Lochol Breakfast Acetaminophen Tablet [facility] 07/03/25 Verified (Tylenol Tablet) 20:45 Nitroglycerin [facility] 07/03/25 Verified Sublingual (Ntrostat 20:45 Morphine Sulfate [facility] 07/03/25 Verified Injection 20:45 Oxygen By Nasal RT 07/03/25 Verified Cannula 20:42 Stat Ekg For Chest [facility] 07/03/25 Verified Pain 20:42 Notify Md Of Changes [facility] 07/03/25 Verified From Base 20:42 Wallpaper Inspector For [facility] 07/03/25 Verified 24 Hours 20:42 Emergency Dysrhythmia [facility] 07/03/25 Verified Protocol 20:42 Rhythm Strips Once [facility] 07/03/25 Verified Every Shift 20:42 Pantoprazole Tablet [facility] 07/04/25 Verified (Protonix Tablet) 06:00 Visit Coding STANDARD RES Billing Provider: DUYEN LLAMAS MD Date of Service if different f: Jul 03, 2025 Common Visit Codes: [id number] INP/OBS CARE (HIGH) Secondary Visit Codes: [id number] CARE PLAN 30 MINUTES VALENTINO FABIAN RESIDENT Jul 03, 2025 20:47
[2025-07-03] MEDS: ENOXAPARIN SOD 100 MG/1 ML SYRINGE SC SCH (21:00)
[2025-07-03] MEDS: POTASSIUM CHL 20 Meq TABLET PO ONE (21:30)
[2025-07-03] MEDS: ATORVASTATIN 20 MG TAB PO SCH (23:27)
[2025-07-03] MEDS: AMIODARONE HCL 200 MG TAB PO SCH (23:27)
[2025-07-04] VITALS (10 sets, daily range): BP systolic 94–133; BP diastolic 58–89; PULSE 82–104; RESP 16–20; TEMP 97.5–98; O2SAT 95–99
--- NOTE | 2025-07-04 00:30 | ECG ---
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
[2025-07-04] MEDS: MORPHINE SULFATE INJ 2 MG/ml SYRG IV ONE (01:02)
[2025-07-04] MEDS: MORPHINE SULFATE 4 MG/ML SYR/VIAL IV ONE (01:07)
[2025-07-04] MEDS: MAGNESIUM SULFATE 1GM/100ML 100 ML IV ONE (01:47)
[2025-07-04] MEDS: ONDANSETRON HCL 4 MG/2 ML VIAL IV ONE (05:13)
[2025-07-04] MEDS: PANTOPRAZOLE 40 MG TAB PO SCH (05:13)
[2025-07-04 07:11] LABS: Hematocrit 41.1 % (41.0-53.0); Hemoglobin 13.9 g/dL (13.5-17.5); Mean Corpuscular Hemoglobin 31.3 pg (28.0-32.0); Mean Corpuscular Volume 92.7 fL (80.0-100.0); Nucleated Red Blood Cells % 0.5 %
[2025-07-04 07:32] LABS: Alanine Aminotransferase 23 U/L (7-40); Anion Gap 12 (5-15); BUN/Creatinine Ratio 12.2 (10.0-20.0); Blood Urea Nitrogen 14 mg/dL (9-23); Calcium 9.3 mg/dL (8.7-10.4); Carbon Dioxide 22 mmol/L (20-31); Glucose 85 mg/dL (74-106); Potassium 3.7 mmol/L (3.5-5.1); Total Protein 6.9 g/dL (5.7-8.2)
[2025-07-04 07:33] LABS: Albumin 3.9 g/dL (3.2-4.8)
[2025-07-04 07:34] LABS: Alkaline Phosphatase 184 U/L (46-116); Bilirubin, Total 3.9 mg/dL (0.2-1.0); Chloride 96 mmol/L (98-107); Sodium 130 mmol/L (136-145)
--- NOTE | 2025-07-04 09:39 | DVH ---
US OF THE RIGHT BREAST INDICATION: Right breast nodule TECHNIQUE: Targeted ultrasound of the right breast was performed, assisted by color doppler technique. COMPARISON: None. FINDINGS: Corresponding to the area of palpable abnormality in the 11 o'clock position of the right breast near the nipple, there is a heterogeneous hypoechoic structure measuring up to 2.5 x 0.7 x 3.2 cm. Possible gynecomastia, although mammogram is needed to further characterize. IMPRESSION: 1. Incomplete examination. Additional imaging needed. Diagnostic bilateral mammogram also needed to further characterize the finding on ultrasound. This could be done on an outpatient basis. 2. ACR Bi Rads Category:Category 0-"INCOMPLETE" (Needs Additional Imaging Evaluation).
[2025-07-04] MEDS ORDERED: ENOXAPARIN SOD 40 MG/0.4 ML SYRINGE SC SCH (10:00)
[2025-07-04] MEDS: ASPirin-EC 81 mg tab PO SCH (10:51)
[2025-07-04] MEDS: DIGOXIN 0.125 MG TAB PO SCH (10:51)
[2025-07-04] MEDS: SPIRONOLACTONE 25 MG TAB PO SCH (10:58)
[2025-07-04] MEDS: BUMETANIDE 1 MG TAB PO SCH (10:58)
[2025-07-04] MEDS: LOSARTAN POTASSIUM 25 MG TAB PO SCH (10:59)
[2025-07-04] MEDS: METOPROLOL SUCCINATE XL 50 MG TAB PO SCH (10:59)
--- NOTE | 2025-07-04 13:55 | DVHPN2 ---
Subjective The patient seen and examined at bedside. Complains of shortness of breath. No chest pain Reviewed: Care Plan, H&P, Labs, Medications, Previous Orders, Radiology Changes from previous H/P or p: No Changes Eyes: No Pain, No Vision change, No Conjunctivae inflammation, No Eyelid inflammation, No Other, No Redness ENT: No Ear pain, No Ear discharge, No Nose pain, No Nose discharge, No Nose congestion, No Mouth pain, No Mouth swelling, No Throat pain, No Throat swelling, No Other Cardiovascular: Chest Pain; No Palpitations, No Orthopnea; Paroxysmal Noc. Dyspnea; No Edema, No Lt Headedness; Other (Exertional dyspnea) Respiratory: No Cough, No Dry, No Shortness of breath, No SOB with excertion, No Wheezing, No Hemoptysis, No Pleuritic Pain, No Sputum, No Other Gastrointestinal: Nausea; No Vomiting, No Abdominal Pain, No Diarrhea, No Constipation, No Melena, No Hematochezia, No Other Genitourinary: No Dysuria, No Frequency, No Incontinence, No Hematuria, No Retention, No Other Musculoskeletal: No other, No neck pain, No shoulder pain, No arm pain, No back pain, No hand pain, No leg pain, No foot pain Skin: No Rash, No Lesions, No Jaundice, No Bruising, No Other Objective Vitals Vital Signs Date Time Temp Pulse Resp B/P (MAP) Pulse Ox O2 Delivery O2 Flow Rate FiO2 07/04/25 12:41 97.6 88 19 109/77 (88) 96 97.6 07/04/25 08:00 Room Air* 0 21 Intake/Output Intake and Output 07/04/25 07:00 Intake Total 450 ml Output Total 0 ml Balance 450 ml Intake Oral 350 ml IV Total 100 ml Output Stool Total 0 ml # Voids 1 General Appearance: Alert, Oriented X3, No acute distress HEENT: Atraumatic, PERRLA, EOMI, Mucous membr. moist/pink Neck: Supple Lungs: Clear to auscultation, Normal air movement Cardiovascular: Regular rate, Normal S1, Normal S2, No murmurs, Gallops, Rubs Abdomen: Normal bowel sounds, Soft, No tenderness Neuro: Cranial nerves 3-12 NL Psych/Mental Status: Mental status NL Medications Current Medications Medications Dose Ordered Sig/Brian Route Start Time Stop Time Status Last Admin Dose Admin Acetaminophen 650 mg Q6HP PRN PO 07/03/25 20:45 Nitroglycerin 0.4 mg Q5MINP PRN SL 07/03/25 20:45 Morphine Sulfate 2 mg Q30M PRN IV 07/03/25 20:45 Pantoprazole Sodium 40 mg DAILY@0600 PO 07/04/25 06:00 07/04/25 05:13 40 MG Amiodarone HCl 200 mg BID PO 07/03/25 22:00 07/04/25 10:51 200 MG Aspirin 81 mg DAILY PO 07/04/25 10:00 07/04/25 10:51 81 MG Bumetanide 1 mg DAILY PO 07/04/25 10:00 Digoxin 0.125 mg DAILY PO 07/04/25 10:00 07/04/25 10:51 0.125 MG Losartan Potassium 25 mg DAILY PO 07/04/25 10:00 Spironolactone 25 mg DAILY PO 07/04/25 10:00 Enoxaparin Sodium 90 mg BID SC 07/03/25 21:00 07/04/25 10:58 90 MG Atorvastatin Calcium 40 mg HS PO 07/03/25 22:00 07/03/25 23:27 40 MG Metoprolol Succinate 25 mg DAILY PO 07/04/25 10:00 Laboratory Results Laboratory Tests 07/04/25 05:51 Chemistry Test 07/03/25 16:00 07/04/25 05:51 Albumin 4.1 g/dL (3.2-4.8) 3.9 g/dL (3.2-4.8) Calcium Level 9.6 mg/dL (8.7-10.4) 9.3 mg/dL (8.7-10.4) Total Protein 7.0 g/dL (5.7-8.2) 6.9 g/dL (5.7-8.2) Cardiac Markers Test 07/03/25 16:00 B-Type Natriuretic Peptide 2678.45 pg/mL (0-100) LFT Test 07/03/25 16:00 07/04/25 05:51 Alanine Aminotransferase (ALT) 28 U/L (7-40) 23 U/L (7-40) Alkaline Phosphatase 196 U/L (46-116) H 184 U/L (46-116) H Aspartate Amino Transferase (AST) 43 U/L (13-40) H 42 U/L (13-40) H Total Bilirubin 4.9 mg/dL (0.2-1.0) H 3.9 mg/dL (0.2-1.0) H Urinalysis Test 07/03/25 19:31 Urine Color Yellow (Yellow) Urine Clarity Clear (Clear) Urine pH 6.5 (5.0-9.0) Urine Specific [place] 1.010 (1.001-1.035) Urine Protein Negative (Negative) Urine Ketones Negative (Negative) Urine Blood Negative /uL (Negative) Urine Nitrite Negative (Negative) Urine Bilirubin Negative (Negative) Urine Urobilinogen 2 mg/dL (Negative) H Urine Leukocyte Esterase Negative /uL (Negative) Urine RBC 1 /hpf (0 - 3) Urine Microscopic WBC 1 /HPF (0-3) Urine Squamous Epithelial Cells None seen /hpf (<5) Urine Bacteria None seen /hpf (None Seen) Urine Glucose Normal mg/dL (Normal) Labs and/or images reviewed: Labs reviewed by me Assessment/Plan Assessment/Plan Chest pain rule out ACS Chronic systolic congestive heart failure (HFrEF, LVEF 6%), not decompensated - status post CREATIVE PERFUMER-D with fractured CREATIVE PERFUMER lead End-stage nonischemic dilated cardiomyopathy Severe mitral regurgitation Pulmonary hypertension (RVSP 52 mmHg) History of V-tach - on p.o. amiodarone History of CAD status post 4 JAMEL Hypertensive heart disease Mixed hyperlipidemia Paroxysmal atrial fibrillation on Eliquis secondary hypercoagulability state BNP: 2678.45 Troponin:32> 31>34 CXR: Cardiomegaly, no acute cardiopulmonary disease. Continue Aspirin Digoxin Bumetanide Coreg Atorvastatin Nitroglycerin Cardiac device interrogation ([employer]) Echocardiogram on 02/25/2025: Dilated all cardiac chamber, severe hypokinesia of all cardiac chambers, EF 6%, severe pulmonary hypertension. Continue p.o. amiodarone Last coronary angiography on 09/2021 which showed nonobstructive coronary arteries. Ordered magnesium. Goal should be above 2 mg/dL Replenish potassium to obtain level above 4 mEq/L Transaminitis AST 43, ALT 28, ALP 196 will continue to monitor Electrolyte unbalance with hypokalemia, will replace, and hyponatremia, will monitor Euthyroid sick syndrome Monitor TSH, Ft4-outpatient will order PT to get the patient out of bed and ambulate. Continue diuretic Discharge planning. Diet: Cardiac GI prophylaxis: Pantoprazole DVT prophylaxis: Lovenox Plan discussed with: Patient Date of Service: Jul 04, 2025 Billing Provider: JACINTO SONG MD Common Visit Codes: [id number] INP/OBS CARE(HIGH) JACINTO SONG MD Jul 04, 2025 13:54
[2025-07-04] MEDS: ONDANSETRON HCL 4 MG/2 ML VIAL IV PRN (15:40)
[2025-07-04] MEDS: NITROGLYCERIN 0.4 MG SL TAB SL PRN (19:53)
[2025-07-04] MEDS: MORPHINE SULFATE INJ 2 MG/ml SYRG IV PRN (21:34)
[2025-07-05] VITALS (8 sets, daily range): BP systolic 91–122; BP diastolic 63–80; PULSE 60–84; RESP 16–18; TEMP 97.3–98.2; O2SAT 95–99
[2025-07-05 06:12] LABS: Hematocrit 38.0 % (41.0-53.0); Hemoglobin 12.7 g/dL (13.5-17.5); Mean Corpuscular Hemoglobin 31.0 pg (28.0-32.0); Mean Corpuscular Volume 93.0 fL (80.0-100.0); Nucleated Red Blood Cells % 0.3 %
[2025-07-05 06:22] LABS: Potassium 4.4 mmol/L (3.5-5.1)
[2025-07-05 06:23] LABS: Anion Gap 9 (5-15); Calcium 9.4 mg/dL (8.7-10.4); Carbon Dioxide 26 mmol/L (20-31)
[2025-07-05 06:28] LABS: BUN/Creatinine Ratio 11.8 (10.0-20.0); Blood Urea Nitrogen 14 mg/dL (9-23)
[2025-07-05 06:29] LABS: Chloride 94 mmol/L (98-107); Glucose 71 mg/dL (74-106); Sodium 129 mmol/L (136-145)
--- NOTE | 2025-07-05 09:41 | ECG ---
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
--- NOTE | 2025-07-05 12:44 | DVHPN2 ---
Subjective The patient seen and examined at bedside. Complains of shortness of breath. Complains of nausea/vomiting. Reviewed: Care Plan, H&P, Labs, Medications, Previous Orders, Radiology Changes from previous H/P or p: No Changes Eyes: No Pain, No Vision change, No Conjunctivae inflammation, No Eyelid inflammation, No Other, No Redness ENT: No Ear pain, No Ear discharge, No Nose pain, No Nose discharge, No Nose congestion, No Mouth pain, No Mouth swelling, No Throat pain, No Throat swelling, No Other Cardiovascular: Chest Pain; No Palpitations, No Orthopnea; Paroxysmal Noc. Dyspnea; No Edema, No Lt Headedness; Other (Exertional dyspnea) Respiratory: No Cough, No Dry, No Shortness of breath, No SOB with excertion, No Wheezing, No Hemoptysis, No Pleuritic Pain, No Sputum, No Other Gastrointestinal: Nausea; No Vomiting, No Abdominal Pain, No Diarrhea, No Constipation, No Melena, No Hematochezia, No Other Genitourinary: No Dysuria, No Frequency, No Incontinence, No Hematuria, No Retention, No Other Musculoskeletal: No other, No neck pain, No shoulder pain, No arm pain, No back pain, No hand pain, No leg pain, No foot pain Skin: No Rash, No Lesions, No Jaundice, No Bruising, No Other Objective Vitals Vital Signs Date Time Temp Pulse Resp B/P (MAP) Pulse Ox O2 Delivery O2 Flow Rate FiO2 07/05/25 11:23 100/64 07/05/25 10:03 84 07/05/25 09:00 97.9 18 98 97.9 07/05/25 08:14 Room Air* 0 21 Intake/Output Intake and Output 07/05/25 07:00 Intake Total 1890 ml Output Total 950 ml Balance 940 ml Intake Oral 1890 ml Output Urine Total 950 ml General Appearance: Alert, Oriented X3, No acute distress HEENT: Atraumatic, PERRLA, EOMI, Mucous membr. moist/pink Neck: Supple Lungs: Clear to auscultation, Normal air movement Cardiovascular: Regular rate, Normal S1, Normal S2, No murmurs, Gallops, Rubs Abdomen: Normal bowel sounds, Soft, No tenderness Neuro: Cranial nerves 3-12 NL Psych/Mental Status: Mental status NL Medications Current Medications Medications Dose Ordered Sig/Brian Route Start Time Stop Time Status Last Admin Dose Admin Acetaminophen 650 mg Q6HP PRN PO 07/03/25 20:45 Nitroglycerin 0.4 mg Q5MINP PRN SL 07/03/25 20:45 07/04/25 20:43 0.4 MG Morphine Sulfate 2 mg Q30M PRN IV 07/03/25 20:45 07/04/25 21:34 2 MG Pantoprazole Sodium 40 mg DAILY@0600 PO 07/04/25 06:00 07/05/25 06:15 40 MG Amiodarone HCl 200 mg BID PO 07/03/25 22:00 07/05/25 10:03 200 MG Aspirin 81 mg DAILY PO 07/04/25 10:00 07/05/25 10:01 81 MG Bumetanide 1 mg DAILY PO 07/04/25 10:00 Digoxin 0.125 mg DAILY PO 07/04/25 10:00 07/05/25 10:03 0.125 MG Losartan Potassium 25 mg DAILY PO 07/04/25 10:00 Spironolactone 25 mg DAILY PO 07/04/25 10:00 Enoxaparin Sodium 90 mg BID SC 07/03/25 21:00 07/04/25 10:58 90 MG Atorvastatin Calcium 40 mg HS PO 07/03/25 22:00 07/04/25 21:32 40 MG Metoprolol Succinate 25 mg DAILY PO 07/04/25 10:00 07/05/25 10:02 25 MG Ondansetron HCl 4 mg Q4HPRN PRN IV 07/04/25 15:30 07/05/25 11:57 4 MG Laboratory Results Laboratory Tests 07/05/25 05:37 Chemistry Test 07/05/25 05:37 Calcium Level 9.4 mg/dL (8.7-10.4) Urinalysis Test 07/03/25 19:31 Urine Color Yellow (Yellow) Urine Clarity Clear (Clear) Urine pH 6.5 (5.0-9.0) Urine Specific [place] 1.010 (1.001-1.035) Urine Protein Negative (Negative) Urine Ketones Negative (Negative) Urine Blood Negative /uL (Negative) Urine Nitrite Negative (Negative) Urine Bilirubin Negative (Negative) Urine Urobilinogen 2 mg/dL (Negative) H Urine Leukocyte Esterase Negative /uL (Negative) Urine RBC 1 /hpf (0 - 3) Urine Microscopic WBC 1 /HPF (0-3) Urine Squamous Epithelial Cells None seen /hpf (<5) Urine Bacteria None seen /hpf (None Seen) Urine Glucose Normal mg/dL (Normal) Microbiology Microbiology Date/Time Source Procedure Growth Status 07/04/25 06:40 Nose MRSA Screen - Final Complete Labs and/or images reviewed: Labs reviewed by me Assessment/Plan Assessment/Plan Chest pain rule out ACS Chronic systolic congestive heart failure (HFrEF, LVEF 6%), not decompensated - status post FLY RAISER LOCKSTITCH-D with fractured FLY RAISER LOCKSTITCH lead End-stage nonischemic dilated cardiomyopathy Severe mitral regurgitation Pulmonary hypertension (RVSP 52 mmHg) History of V-tach - on p.o. amiodarone History of CAD status post 4 JAMEL Hypertensive heart disease Mixed hyperlipidemia Paroxysmal atrial fibrillation on Eliquis secondary hypercoagulability state BNP: 2678.45 Troponin:32> 31>34 CXR: Cardiomegaly, no acute cardiopulmonary disease. Continue Aspirin Digoxin Bumetanide Coreg Atorvastatin Nitroglycerin Cardiac device interrogation ([facility]) Echocardiogram on 02/25/2025: Dilated all cardiac chamber, severe hypokinesia of all cardiac chambers, EF 6%, severe pulmonary hypertension. Continue p.o. amiodarone Last coronary angiography on 09/2021 which showed nonobstructive coronary arteries. Ordered magnesium. Goal should be above 2 mg/dL Replenish potassium to obtain level above 4 mEq/L Transaminitis AST 43, ALT 28, ALP 196 will continue to monitor Electrolyte unbalance with hypokalemia, will replace, and hyponatremia, will monitor Euthyroid sick syndrome Monitor TSH, Ft4-outpatient will order PT to get the patient out of bed and ambulate. Continue diuretic Discharge planning. Diet: Cardiac GI prophylaxis: Pantoprazole DVT prophylaxis: Lovenox Today, 07/05: the patient has intractable nausea/vomiting. Probably from liver congestion due to CHF. Will consult GI. EKG review. Cardiology consult. Plan discussed with: Patient My Orders Orders - JACINTO SONG MD Procedure Category Date Status Time Pt Request For Service PT 07/04/25 Logged 14:37 Ondansetron Hcl PHA 07/04/25 In Process (Zofran) 15:30 Electrocardigram EKG 07/04/25 Logged 19:49 Electrocardigram EKG 07/04/25 Logged 21:48 Electrocardigram EKG 07/04/25 Logged 23:48 Complete Blood Count LAB 07/06/25 Verified 05:00 Basic Metabolic Panel LAB 07/06/25 Verified 05:00 Date of Service: Jul 05, 2025 Billing Provider: JACINTO SONG MD Common Visit Codes: [id number] INP/OBS CARE(HIGH) JACINTO SONG MD Jul 05, 2025 12:44
[2025-07-05] MEDS: MORPHINE SULFATE 4 MG/ML SYR/VIAL IV PRN (14:28)
--- NOTE | 2025-07-05 19:27 | DVHINCON2 ---
Date of service: Jul 05, 2025 Referring Physician Lenora Sullivan Reason for Consultation Chest pain; N/V History of Present Illness Patient is a 65-year-old male with past medical history of heart failure with reduced ejection fraction 6% secondary to dilated cardiomyopathy s/p SORT WORKER D, pulmonary embolism, CAD s/p PCI JAMEL x4, atrial fibrillation, diabetes, pulmonary hypertension, severe mitral regurgitation, V-tach, hypertension, dyslipidemia, liver cirrhosis, who comes in due to chest pain. According to the patient, he has been experiencing chest pain for the past 3 days which he describes as sharp, constant, 8/10 in intensity, worsened with lying down and partly relieved by nitroglycerin, associated with worsening shortness of breaths. Patient notes he has been requiring his home oxygen 2 L more frequently over the last 3 days, noticed to have dyspnea Functional Class III. Also complains of nausea and vomiting, 2 episodes nonbilious nonbloody, vomitus containing food particles. Uses a walker to ambulate at baseline. Patient was given morphine this morning for his chest pain and this may moving the chest pain had improved Past Medical History Past medical history:heart failure with reduced ejection fraction 6% secondary to dilated cardiomyopathy s/p SORT WORKER D, pulmonary embolism, CAD s/p PCI JAMEL x4, atrial fibrillation, diabetes, pulmonary hypertension, severe mitral regurgitation, V-tach, hypertension, dyslipidemia, liver cirrhosis Past Surgical History Past surgical history: AICD, PTCA Family History: FH: arthritis FH: cancer aunt, Onset:50's - 60 FH: diabetes mellitus G8 MOTHER, , Onset:Unknown FH: stroke G8 MOTHER, , Onset:Unknown FHx: heart disease Family history: Cardiovascular disease G8 MOTHER, , Onset:Unknown Family history: Hypertension G8 MOTHER, , Onset:Unknown Allergies: Coded Allergies: Shellfish Allergy (Unverified Allergy, Severe, 09/11/23) CRAB Uncoded Allergies: CRAB (Allergy, Severe, 08/06/17) Home Meds Active Scripts Metoprolol Succinate (Metoprolol Succinate Er) 25 Mg Tab, 1 TAB PO DAILY for 30 Days, #30 TAB 3 Refills Prov:EVELINE MARTINEZ 05/26/25 Apixaban Base (ELIQUIS) 5 Mg Tab, 5 MG PO BID for 30 Days, #60 TAB 1 Refill Prov:MEME JAIME MD 05/14/25 Atorvastatin Calcium (ATORVASTATIN CALCIUM) 40 Mg Tab, 1 TAB PO DAILY, #90 TAB 1 Refill Prov:MEME JAIME MD 05/14/25 Losartan Potassium (Losartan Potassium) 25 Mg Tab, 25 MG PO DAILY for 30 Days, #30 TAB 0 Refills Prov:MICAELA WRIGHT 04/21/25 Amiodarone HCl (Amiodarone HCl) 200 Mg Tab, 1 TAB PO BID for 30 Days, #60 TAB Prov:MICAELA WRIGHT 04/21/25 Spironolactone (Spironolactone) 25 Mg Tab, 1 TAB PO DAILY for 30 Days, #30 TAB Prov:MICAELA WRIGHT 04/21/25 Bumetanide (Bumetanide) 1 Mg Tab, 1 TAB PO DAILY for 30 Days, #30 TAB Prov:MICAELA WRIGHT 04/21/25 Aspirin (Aspirin Low Dose) 81 Mg Tab, 1 TAB PO DAILY for 30 Days, #30 TAB Prov:MICAELA WRIGHT 04/21/25 Dapagliflozin Propanediol (Farxiga) 10 Mg Tab, 10 MG PO DAILY for 30 Days, #30 TAB Prov:MICAELA WRIGHT 04/21/25 Reported Medications Pantoprazole Sodium Sesquihydr (Pantoprazole Sodium) 40 Mg Tab, 1 TAB PO DAILY for 30 Days, #30 05/12/24 Cholecalciferol (VITAMIN D3) 2,000 Unit Tab, 1 TAB PO DAILY 01/09/24 Digoxin (Digoxin) 125 Mcg Tab, 1 TAB PO DAILY 01/09/24 Nitroglycerin (NTROSTAT SUBLINGUAL) 0.4 Mg Sl, 0.4 MG SL PRN, TAB *MAY REPEAT EVERY 5 MINUTES X 3 TOTAL IF NO RELIEF, INITIATE ANALGESIC THERAPY. NOTIFY PHYSICIAN *Do not crush. 05/15/23 Current Medications Current Medications Medications (Trade) Dose Ordered Sig/Brian Route PRN Reason Start Time Stop Time Status Last Admin Morphine Sulfate 2 mg Q30M PRN IV FOR CHEST PAIN 07/05/25 14:30 07/05/25 14:28 Vital Signs Vital Signs Date Time Temp Pulse Resp B/P (MAP) Pulse Ox O2 Delivery O2 Flow Rate FiO2 07/05/25 17:00 97.8 68 17 122/73 (89) 98 97.8 07/05/25 08:14 Room Air* 0 21 Physical Exam General Appearance: Alert, Oriented X3, Cooperative, no distress HEENT: Atraumatic, PERRLA, EOMI Respiratory: Clear to auscultation, Normal air movement Cardiovascular: Regular rate, Normal S1, Normal S2, No murmurs Abdominal: Normal bowel sounds, Soft, No tenderness, No hepatospenomegaly Extremities: No clubbing, No cyanosis, No edema, Normal pulses Skin: No rashes, No breakdown Neuro: Normal gait, Normal speech, Strength at 5/5 X4 ext, Sensation intact Psych/Mental Status: Mental status NL, Mood NL Labs/Diagnostic Data Labs Test 07/05/25 05:37 07/04/25 05:51 07/03/25 19:31 07/03/25 19:10 Range/Units White Blood Count 4.6 4.4-10.8 10^3/uL Red Blood Count 4.09 L 4.5-5.90 10^6/uL Hemoglobin 12.7 L 13.5-17.5 g/dL Hematocrit 38.0 L 41.0-53.0 % Mean Corpuscular Volume 93.0 80.0-100.0 fL Mean Corpuscular Hemoglobin 31.0 28.0-32.0 pg Mean Corpuscular Hemoglobin Concent 33.3 32.0-36.0 g/dL Red Cell Distribution Width 20.5 H 11.8-14.3 % Platelet Count 144 140-450 10^3/uL Mean Platelet Volume 7.7 6.9-10.8 fL Neutrophils (%) (Auto) 66.6 37.0-80.0 % Lymphocytes (%) (Auto) 13.5 10.0-50.0 % Monocytes (%) (Auto) 16.6 H 0.0-12.0 % Eosinophils (%) (Auto) 2.4 0.0-7.0 % Basophils (%) (Auto) 0.9 0.0-2.0 % Neutrophils # (Auto) 3.0 1.6-8.6 10 ^3/uL Lymphocytes # (Auto) 0.6 0.4-5.4 10 ^3/uL Monocytes # (Auto) 0.8 0-1.3 10 ^3/uL Eosinophils # (Auto) 0.1 0-0.8 10 ^3/uL Basophils # (Auto) 0 0-0.2 10 ^3/uL Nucleated Red Blood Cells 0.3 % Sodium Level 129 L 136-145 mmol/L Potassium Level 4.4 3.5-5.1 mmol/L Chloride Level 94 L 98-107 mmol/L Carbon Dioxide Level 26 20-31 mmol/L Anion Gap 9 5-15 Blood Urea Nitrogen 14 9-23 mg/dL Creatinine 1.19 0.700-1.30 mg/dL Glomerular Filtration Rate Calc 69 >90 mL/min BUN/Creatinine Ratio 11.8 10.0-20.0 Serum Glucose 71 L 74-106 mg/dL Calcium Level 9.4 8.7-10.4 mg/dL Total Bilirubin 3.9 H 0.2-1.0 mg/dL Aspartate Amino Transferase (AST) 42 H 13-40 U/L Alanine Aminotransferase (ALT) 23 7-40 U/L Alkaline Phosphatase 184 H 46-116 U/L Total Protein 6.9 5.7-8.2 g/dL Albumin 3.9 3.2-4.8 g/dL Urine Color Yellow Yellow Urine Clarity Clear Clear Urine pH 6.5 5.0-9.0 Urine Specific [place] 1.010 1.001-1.035 Urine Protein Negative Negative Urine Ketones Negative Negative Urine Blood Negative Negative /uL Urine Nitrite Negative Negative Urine Bilirubin Negative Negative Urine Urobilinogen 2 H Negative mg/dL Urine Leukocyte Esterase Negative Negative /uL Urine RBC 1 0 - 3 /hpf Urine Microscopic WBC 1 0-3 /HPF Urine Squamous Epithelial Cells None seen <5 /hpf Urine Bacteria None seen None Seen /hpf Urine Glucose Normal Normal mg/dL Troponin I High Sensitivity 34 </=54 ng/L Test 07/03/25 16:00 Range/Units B-Type Natriuretic Peptide 2678.45 0-100 pg/mL Microbiology Date/Time Source Procedure Growth Status 07/04/25 06:40 Nose MRSA Screen - Final Complete Problems(with codes): (1) Ischemic cardiomyopathy (2) Atypical chest pain (3) Nausea & vomiting (4) History of cardiac pacemaker (5) Elevated liver enzymes (6) CHF exacerbation Plan/Recommendation Assessment plan Patient is not a candidate for endoscopic workup We will continue supportive care with Protonix and Zofran Diet as tolerated Liver enzymes are trending down; gallbladder ultrasound was negative in May Hepatitis panel was negative Patient probably have congestion of the liver from CHF Plan discussed with: Other (Nurse) LESTER REGALADO MD Jul 05, 2025 19:27
--- NOTE | 2025-07-05 21:01 | ECG ---
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
--- NOTE | 2025-07-05 21:02 | ECG ---
[facility] Test Date: 2025-07-03 Test Time: 16:57:47 Pat Name: SUHAIL VILLALTA Department: ED Room: 0271T Gender: M Tape Cutter: MAKAYLA : 1960 Requested By: JESSI NARVAEZ Order Number: [id number] Reading MD: Adrián Mock Measurements Intervals [place] Rate: 82 P: 65 WI: 198 QRS: -81 QRSD: 171 T: 89 QT: 464 QTc: 542 Interpretive Statements Sinus rhythm Multiple premature complexes, vent & supraven Nonspecific IVCD with LAD Left ventricular hypertrophy Electronically Signed On 07-09-2025 8:32:18 PST by Adrián Mock Please click the below link to view image of tracing.
--- NOTE | 2025-07-05 21:02 | ECG ---
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
[2025-07-05] MEDS: SUCRALFATE 1 GM/10 ML ORAL SUSP PO SCH (21:32)
[2025-07-06] VITALS (8 sets, daily range): BP systolic 90–149; BP diastolic 52–88; PULSE 49–78; RESP 16–19; TEMP 97.4–98.1; O2SAT 95–100
[2025-07-06 06:53] LABS: Hematocrit 37.9 % (41.0-53.0); Hemoglobin 12.7 g/dL (13.5-17.5); Mean Corpuscular Hemoglobin 30.6 pg (28.0-32.0); Mean Corpuscular Volume 91.6 fL (80.0-100.0)
[2025-07-06 07:04] LABS: Carbon Dioxide 24 mmol/L (20-31); Potassium 4.7 mmol/L (3.5-5.1)
[2025-07-06 07:05] LABS: Anion Gap 9 (5-15)
[2025-07-06 07:06] LABS: Calcium 9.2 mg/dL (8.7-10.4)
[2025-07-06 07:10] LABS: Glucose 78 mg/dL (74-106)
[2025-07-06 07:11] LABS: BUN/Creatinine Ratio 19.0 (10.0-20.0); Lipase 32 U/L (12-53)
[2025-07-06 07:21] LABS: Blood Urea Nitrogen 24 mg/dL (9-23); Chloride 93 mmol/L (98-107); Sodium 126 mmol/L (136-145)
[2025-07-06 07:56] LABS: Anisocytosis Slight; Smudge Cells 1 /100 WBC; Total Cells Counted 100.0 (100)
--- NOTE | 2025-07-06 10:55 | ECG ---
[facility] Test Date: 2025-07-05 Test Time: 14:02:44 Pat Name: SUHAIL VILLALTA Department: Respiratoy Room: 0271T Gender: M Line Installation Supervisor: HTEMICHEL : 1960 Requested By: JACINTO SONG Order Number: [id number] Reading MD: Adrián Mock Measurements Intervals [place] Rate: 70 P: 0 TX: 0 QRS: -79 QRSD: 149 T: 90 QT: 455 QTc: 491 Interpretive Statements Atrial fibrillation Multi interpolated vent premature complexes Left bundle branch block Baseline wander in lead(s) V4 Electronically Signed On 07-09-2025 8:17:31 PST by Adrián Mock Please click the below link to view image of tracing.
--- NOTE | 2025-07-06 14:31 | DVHPN2 ---
Subjective Still feeling SOB Reviewed: Care Plan, H&P, Labs, Medications, Previous Orders, Radiology Changes from previous H/P or p: No Changes Eyes: No Pain, No Vision change, No Conjunctivae inflammation, No Eyelid inflammation, No Other, No Redness ENT: No Ear pain, No Ear discharge, No Nose pain, No Nose discharge, No Nose congestion, No Mouth pain, No Mouth swelling, No Throat pain, No Throat swelling, No Other Cardiovascular: Chest Pain; No Palpitations, No Orthopnea; Paroxysmal Noc. Dyspnea; No Edema, No Lt Headedness; Other (Exertional dyspnea) Respiratory: No Cough, No Dry, No Shortness of breath, No SOB with excertion, No Wheezing, No Hemoptysis, No Pleuritic Pain, No Sputum, No Other Gastrointestinal: Nausea; No Vomiting, No Abdominal Pain, No Diarrhea, No Constipation, No Melena, No Hematochezia, No Other Genitourinary: No Dysuria, No Frequency, No Incontinence, No Hematuria, No Retention, No Other Musculoskeletal: No other, No neck pain, No shoulder pain, No arm pain, No back pain, No hand pain, No leg pain, No foot pain Skin: No Rash, No Lesions, No Jaundice, No Bruising, No Other Objective Vitals Vital Signs Date Time Temp Pulse Resp B/P (MAP) Pulse Ox O2 Delivery O2 Flow Rate FiO2 07/06/25 12:36 97.6 78 16 98/72 (81) 96 97.6 07/05/25 20:00 Room Air* 0 21 Intake/Output Intake and Output 07/06/25 07:00 Intake Total 2400 ml Balance 2400 ml Intake Oral 2400 ml # Voids 9 General Appearance: Alert, Oriented X3, No acute distress HEENT: Atraumatic, PERRLA, EOMI, Mucous membr. moist/pink Neck: Supple Lungs: Clear to auscultation, Normal air movement Cardiovascular: Regular rate, Normal S1, Normal S2, No murmurs, Gallops, Rubs Abdomen: Normal bowel sounds, Soft, No tenderness Neuro: Cranial nerves 3-12 NL Psych/Mental Status: Mental status NL Medications Current Medications Medications Dose Ordered Sig/Brian Route Start Time Stop Time Status Last Admin Dose Admin Acetaminophen 650 mg Q6HP PRN PO 07/03/25 20:45 Nitroglycerin 0.4 mg Q5MINP PRN SL 07/03/25 20:45 07/04/25 20:43 0.4 MG Pantoprazole Sodium 40 mg DAILY@0600 PO 07/04/25 06:00 07/06/25 05:49 40 MG Amiodarone HCl 200 mg BID PO 07/03/25 22:00 07/06/25 11:19 200 MG Aspirin 81 mg DAILY PO 07/04/25 10:00 07/06/25 11:19 81 MG Bumetanide 1 mg DAILY PO 07/04/25 10:00 07/06/25 11:19 1 MG Digoxin 0.125 mg DAILY PO 07/04/25 10:00 07/06/25 11:18 0.125 MG Losartan Potassium 25 mg DAILY PO 07/04/25 10:00 07/06/25 11:18 25 MG Spironolactone 25 mg DAILY PO 07/04/25 10:00 07/06/25 11:19 25 MG Enoxaparin Sodium 90 mg BID SC 07/03/25 21:00 07/06/25 10:00 90 MG Atorvastatin Calcium 40 mg HS PO 07/03/25 22:00 07/05/25 21:32 40 MG Metoprolol Succinate 25 mg DAILY PO 07/04/25 10:00 07/05/25 10:02 25 MG Ondansetron HCl 4 mg Q4HPRN PRN IV 07/04/25 15:30 07/05/25 21:33 4 MG Morphine Sulfate 2 mg Q30M PRN IV 07/05/25 14:30 07/06/25 12:35 2 MG Sucralfate 1 gm BID@0600,2200 PO 07/05/25 22:00 07/06/25 05:49 1 GM Laboratory Results Laboratory Tests 07/06/25 05:23 Chemistry Test 07/06/25 05:23 Calcium Level 9.2 mg/dL (8.7-10.4) Lipid panel Test 07/06/25 05:23 Lipase 32 U/L (12-53) Urinalysis Test 07/03/25 19:31 Urine Color Yellow (Yellow) Urine Clarity Clear (Clear) Urine pH 6.5 (5.0-9.0) Urine Specific [place] 1.010 (1.001-1.035) Urine Protein Negative (Negative) Urine Ketones Negative (Negative) Urine Blood Negative /uL (Negative) Urine Nitrite Negative (Negative) Urine Bilirubin Negative (Negative) Urine Urobilinogen 2 mg/dL (Negative) H Urine Leukocyte Esterase Negative /uL (Negative) Urine RBC 1 /hpf (0 - 3) Urine Microscopic WBC 1 /HPF (0-3) Urine Squamous Epithelial Cells None seen /hpf (<5) Urine Bacteria None seen /hpf (None Seen) Urine Glucose Normal mg/dL (Normal) Microbiology Microbiology Date/Time Source Procedure Growth Status 07/04/25 06:40 Nose MRSA Screen - Final Complete Assessment/Plan Assessment/Plan Chest pain rule out ACS Chronic systolic congestive heart failure (HFrEF, LVEF 6%), not decompensated - status post 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 amiodarone History of CAD status post 4 JAMEL Hypertensive heart disease Mixed hyperlipidemia Paroxysmal atrial fibrillation on Eliquis secondary hypercoagulability state BNP: 2678.45 Troponin:32> 31>34 CXR: Cardiomegaly, no acute cardiopulmonary disease. Continue Aspirin Digoxin Bumetanide Coreg Atorvastatin Nitroglycerin Cardiac device interrogation ([employer]) Echocardiogram on 02/25/2025: Dilated all cardiac chamber, severe hypokinesia of all cardiac chambers, EF 6%, severe pulmonary hypertension. Continue p.o. amiodarone Last coronary angiography on 09/2021 which showed nonobstructive coronary arteries. Ordered magnesium. Goal should be above 2 mg/dL Replenish potassium to obtain level above 4 mEq/L Transaminitis AST 43, ALT 28, ALP 196 will continue to monitor Electrolyte unbalance with hypokalemia, will replace, and hyponatremia, will monitor Euthyroid sick syndrome Monitor TSH, Ft4-outpatient will order PT to get the patient out of bed and ambulate. Continue diuretic Discharge planning. Plan discussed with: Patient My Orders Orders - OMAR SOLIS MD Procedure Category Date Status Time Electrocardigram EKG 07/06/25 Logged 12:15 Date of Service: Jul 06, 2025 Billing Provider: OMAR SOLIS MD Common Visit Codes: [id number] INP/OBS CARE(HIGH) OMAR SOLIS MD Jul 06, 2025 14:31
--- NOTE | 2025-07-06 14:32 | DVHPN2 ---
Subjective No changes Reviewed: Care Plan, H&P, Labs, Medications, Previous Orders, Radiology Changes from previous H/P or p: No Changes Eyes: No Pain, No Vision change, No Conjunctivae inflammation, No Eyelid inflammation, No Other, No Redness ENT: No Ear pain, No Ear discharge, No Nose pain, No Nose discharge, No Nose congestion, No Mouth pain, No Mouth swelling, No Throat pain, No Throat swelling, No Other Cardiovascular: Chest Pain; No Palpitations, No Orthopnea; Paroxysmal Noc. Dyspnea; No Edema, No Lt Headedness; Other (Exertional dyspnea) Respiratory: No Cough, No Dry, No Shortness of breath, No SOB with excertion, No Wheezing, No Hemoptysis, No Pleuritic Pain, No Sputum, No Other Gastrointestinal: Nausea; No Vomiting, No Abdominal Pain, No Diarrhea, No Constipation, No Melena, No Hematochezia, No Other Genitourinary: No Dysuria, No Frequency, No Incontinence, No Hematuria, No Retention, No Other Musculoskeletal: No other, No neck pain, No shoulder pain, No arm pain, No back pain, No hand pain, No leg pain, No foot pain Skin: No Rash, No Lesions, No Jaundice, No Bruising, No Other Objective Vitals Vital Signs Date Time Temp Pulse Resp B/P (MAP) Pulse Ox O2 Delivery O2 Flow Rate FiO2 07/06/25 12:36 97.6 78 16 98/72 (81) 96 97.6 07/05/25 20:00 Room Air* 0 21 Intake/Output Intake and Output 07/06/25 07:00 Intake Total 2400 ml Balance 2400 ml Intake Oral 2400 ml # Voids 9 General Appearance: Alert, Oriented X3, No acute distress HEENT: Atraumatic, PERRLA, EOMI, Mucous membr. moist/pink Neck: Supple Lungs: Clear to auscultation, Normal air movement Cardiovascular: Regular rate, Normal S1, Normal S2, No murmurs, Gallops, Rubs Abdomen: Normal bowel sounds, Soft, No tenderness Medications Current Medications Medications Dose Ordered Sig/Brian Route Start Time Stop Time Status Last Admin Dose Admin Acetaminophen 650 mg Q6HP PRN PO 07/03/25 20:45 Nitroglycerin 0.4 mg Q5MINP PRN SL 07/03/25 20:45 07/04/25 20:43 0.4 MG Pantoprazole Sodium 40 mg DAILY@0600 PO 07/04/25 06:00 07/06/25 05:49 40 MG Amiodarone HCl 200 mg BID PO 07/03/25 22:00 07/06/25 11:19 200 MG Aspirin 81 mg DAILY PO 07/04/25 10:00 07/06/25 11:19 81 MG Bumetanide 1 mg DAILY PO 07/04/25 10:00 07/06/25 11:19 1 MG Digoxin 0.125 mg DAILY PO 07/04/25 10:00 07/06/25 11:18 0.125 MG Losartan Potassium 25 mg DAILY PO 07/04/25 10:00 07/06/25 11:18 25 MG Spironolactone 25 mg DAILY PO 07/04/25 10:00 07/06/25 11:19 25 MG Enoxaparin Sodium 90 mg BID SC 07/03/25 21:00 07/06/25 10:00 90 MG Atorvastatin Calcium 40 mg HS PO 07/03/25 22:00 07/05/25 21:32 40 MG Metoprolol Succinate 25 mg DAILY PO 07/04/25 10:00 07/05/25 10:02 25 MG Ondansetron HCl 4 mg Q4HPRN PRN IV 07/04/25 15:30 07/05/25 21:33 4 MG Morphine Sulfate 2 mg Q30M PRN IV 07/05/25 14:30 07/06/25 12:35 2 MG Sucralfate 1 gm BID@0600,2200 PO 07/05/25 22:00 07/06/25 05:49 1 GM Laboratory Results Laboratory Tests 07/06/25 05:23 Chemistry Test 07/06/25 05:23 Calcium Level 9.2 mg/dL (8.7-10.4) Lipid panel Test 07/06/25 05:23 Lipase 32 U/L (12-53) Urinalysis Test 07/03/25 19:31 Urine Color Yellow (Yellow) Urine Clarity Clear (Clear) Urine pH 6.5 (5.0-9.0) Urine Specific [place] 1.010 (1.001-1.035) Urine Protein Negative (Negative) Urine Ketones Negative (Negative) Urine Blood Negative /uL (Negative) Urine Nitrite Negative (Negative) Urine Bilirubin Negative (Negative) Urine Urobilinogen 2 mg/dL (Negative) H Urine Leukocyte Esterase Negative /uL (Negative) Urine RBC 1 /hpf (0 - 3) Urine Microscopic WBC 1 /HPF (0-3) Urine Squamous Epithelial Cells None seen /hpf (<5) Urine Bacteria None seen /hpf (None Seen) Urine Glucose Normal mg/dL (Normal) Microbiology Microbiology Date/Time Source Procedure Growth Status 07/04/25 06:40 Nose MRSA Screen - Final Complete Assessment/Plan Assessment/Plan Ischemic cardiomyopathy Nausea and vomiting Elevated liver enzymes CHF exacerbation Cardiac pacemaker Plan Discussed with Dr. Omer Continue supportive care at this time Diet as tolerated We will continue to monitor patient Plan discussed with: Patient Date of Service: Jul 06, 2025 Billing Provider: ML DEVINE Common Visit Codes: [id number] INP/OBS CARE(HIGH) ML DEVINE Jul 06, 2025 14:32
[2025-07-06] MEDS: MORPHINE SULFATE INJ 2 MG/ml SYRG IV PRN (15:23)
[2025-07-07 01:00] VITALS: BP 100/45; PULSE 65; RESP 16; TEMP 98; O2SAT 96
[2025-07-07 05:00] VITALS: BP 105/64; PULSE 66; RESP 16; TEMP 98; O2SAT 68
[2025-07-07] MEDS: MORPHINE SULFATE 4 MG/ML SYR/VIAL IV PRN (06:30)
[2025-07-07] MEDS ORDERED: MORPHINE SULFATE 4 MG/ML SYR/VIAL IV PRN (06:30)
[2025-07-07 07:30] VITALS: RESP 18
--- NOTE | 2025-07-07 07:31 | ECG ---
[facility] Test Date: 2025-07-06 Test Time: 12:15:10 Pat Name: SUHAIL VILLALTA Department: Room: 0271T Gender: M Director Motion Picture: : 1960 Requested By: OMAR SOLIS Order Number: [id number] Reading MD: Adrián Mock Measurements Intervals [place] Rate: 64 P: 0 TX: 0 QRS: -59 QRSD: 174 T: 118 QT: 476 QTc: 491 Interpretive Statements Poor quality data, interpretation may be affected Atrial fibrillation IVCD, consider atypical RBBB LVH with secondary repolarization abnormality Inferior infarct, acute (RCA) Anterior Q waves, possibly due to LVH Probable RV involvement, suggest recording right precordial leads Artifact in lead(s) I,II,III,aVL,aVF,V1,V2,V3,V4,V5,V6 Electronically Signed On 07-09-2025 8:17:57 PST by Adrián Mock Please click the below link to view image of tracing.
--- NOTE | 2025-07-07 07:32 | ECG ---
[facility] Test Date: 2025-07-06 Test Time: 14:57:45 Pat Name: SUHAIL VILLALTA Department: Room: 0271T Gender: M Varnish Dipper: jorge : 1960 Requested By: JACINTO SONG Order Number: [id number] Reading MD: Adrián Mock Measurements Intervals [place] Rate: 60 P: 85 MI: 69 QRS: -74 QRSD: 158 T: 102 QT: 500 QTc: 500 Interpretive Statements Sinus rhythm Atrial premature complexes Short MI interval Left bundle branch block Electronically Signed On 07-09-2025 8:20:27 PST by Adrián Mock Please click the below link to view image of tracing.
--- NOTE | 2025-07-07 07:32 | ECG ---
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
[2025-07-07 09:00] VITALS: BP 97/63; PULSE 63; RESP 17; TEMP 98.2; O2SAT 97
[2025-07-07] MEDS ORDERED: ASPI-325 PO (09:42)
[2025-07-07] MEDS ORDERED: BUME1TAB3 PO (09:42)
[2025-07-07] MEDS ORDERED: HYDR-4902 PO (09:43)
--- NOTE | 2025-07-07 10:36 | DVHDS2 ---
Discharge Summary Date of Admission Jul 03, 2025 at 20:42 Date of Discharge: Jul 07, 2025 Labs/Diagnostic Data: Laboratory Results Test 07/06/25 19:41 07/06/25 05:23 07/05/25 05:37 07/04/25 05:51 Troponin I High Sensitivity 24 ng/L (</=54) White Blood Count 4.7 10^3/uL (4.4-10.8) Red Blood Count 4.14 10^6/uL (4.5-5.90) Hemoglobin 12.7 g/dL (13.5-17.5) Hematocrit 37.9 % (41.0-53.0) Mean Corpuscular Volume 91.6 fL (80.0-100.0) Mean Corpuscular Hemoglobin 30.6 pg (28.0-32.0) Mean Corpuscular Hemoglobin Concent 33.4 g/dL (32.0-36.0) Red Cell Distribution Width 20.8 % (11.8-14.3) Platelet Count 151 10^3/uL (140-450) Mean Platelet Volume 8.1 fL (6.9-10.8) Neutrophils (%) (Auto) % (37.0-80.0) Lymphocytes (%) (Auto) % (10.0-50.0) Monocytes (%) (Auto) % (0.0-12.0) Basophils (%) (Auto) % (0.0-2.0) Neutrophils # (Auto) 10 ^3/uL (1.6-8.6) Lymphocytes # (Auto) 10 ^3/uL (0.4-5.4) Monocytes # (Auto) 10 ^3/uL (0-1.3) Differential Total Cells Counted 100.0 (100) Neutrophils % (Manual) 68 (37.0-80.0) Band Neutrophils % (Manual) 1 Lymphocytes % (Manual) 14 (10.0-50.0) Monocytes % (Manual) 16 (0-12) Eosinophils % (Manual) 0 (0-7) Basophils % (Manual) 0 (0.0-2.0) Metamyelocytes % (manual) 1 Myelocytes % (Manual) 0 Promyelocytes % (Manual) 0 Blast Cells % (Manual) 0 Reactive Lymphocytes 0 Smudge Cells 1 /100 WBC Platelet Estimate Adequate Anisocytosis (manual) Slight Sodium Level 126 mmol/L (136-145) Potassium Level 4.7 mmol/L (3.5-5.1) Chloride Level 93 mmol/L (98-107) Carbon Dioxide Level 24 mmol/L (20-31) Anion Gap 9 (5-15) Blood Urea Nitrogen 24 mg/dL (9-23) Creatinine 1.26 mg/dL (0.700-1.30) Glomerular Filtration Rate Calc 64 mL/min (>90) BUN/Creatinine Ratio 19.0 (10.0-20.0) Serum Glucose 78 mg/dL (74-106) Calcium Level 9.2 mg/dL (8.7-10.4) Lipase 32 U/L (12-53) Eosinophils (%) (Auto) 2.4 % (0.0-7.0) Eosinophils # (Auto) 0.1 10 ^3/uL (0-0.8) Basophils # (Auto) 0 10 ^3/uL (0-0.2) Nucleated Red Blood Cells 0.3 % Total Bilirubin 3.9 mg/dL (0.2-1.0) Aspartate Amino Transferase (AST) 42 U/L (13-40) Alanine Aminotransferase (ALT) 23 U/L (7-40) Alkaline Phosphatase 184 U/L (46-116) Total Protein 6.9 g/dL (5.7-8.2) Albumin 3.9 g/dL (3.2-4.8) Test 07/03/25 19:31 07/03/25 16:00 Urine Color Yellow (Yellow) Urine Clarity Clear (Clear) Urine pH 6.5 (5.0-9.0) Urine Specific [place] 1.010 (1.001-1.035) Urine Protein Negative (Negative) Urine Ketones Negative (Negative) Urine Blood Negative /uL (Negative) Urine Nitrite Negative (Negative) Urine Bilirubin Negative (Negative) Urine Urobilinogen 2 mg/dL (Negative) Urine Leukocyte Esterase Negative /uL (Negative) Urine RBC 1 /hpf (0 - 3) Urine Microscopic WBC 1 /HPF (0-3) Urine Squamous Epithelial Cells None seen /hpf (<5) Urine Bacteria None seen /hpf (None Seen) Urine Glucose Normal mg/dL (Normal) B-Type Natriuretic Peptide 2678.45 pg/mL (0-100) Other Laboratory Tests 07/06/25 05:23 Brief Hx & Hospital Course: 65-year-old male with past medical history HFrEF ,dilated cardiomyopathy s/p CRTD -2018, pulmonary embolism, CAD s/p PCI JAMEL x4, atrial fibrillation, diabetes, pulmonary hypertension, severe mitral regurgitation, V-tach, hypertension, dyslipidemia, liver cirrhosis came to ER with a complaint of left- sided chest pain for 3 days which is intermittent, localized, sharp in nature, 7/10 intensity, persist less than 30 minutes, mild relieved on nitroglycerin sublingually and no aggravating factor. Patient experienced exertional shortness of breath unable to walk 1 block. And current symptoms associated with nausea, fatigue, occasional dizziness. Denies any recent history of fall trauma or MVA. Patient seen by life insurance underwriter Dr. Blake enlarged seen month ago and CRTD interrogation done which was reported normal. Patient denies any cough, SOB, headache, blurry vision, abdominal pain, dysuria or any focal weakness. Had came with acute HF exacerbation got better with diuresis Condition at Discharge: Good Final Diagnosis/Problems List Chest pain rule out ACS due to type 2 CT Acute on chronic systolic HF exacerbation End-stage nonischemic dilated cardiomyopathy Severe mitral regurgitation Pulmonary hypertension (RVSP 52 mmHg) History of V-tach - on p.o. amiodarone History of CAD status post 4 JAMEL Hypertensive heart disease Mixed hyperlipidemia Paroxysmal atrial fibrillation on Eliquis secondary hypercoagulability state Discharge Disposition: Home Discharge Instruct/Medications Diet: Cardiac 2g Na,low cholest Activity: No Restrictions, As Tolerated Follow Up/Referral: PCP in 7 days Medications: same home medications Scheduled Amiodarone HCl (Amiodarone HCl), 1 TAB PO BID Apixaban Base (Eliquis), 5 MG PO BID Aspirin (Aspirin Low Dose), 1 TAB PO DAILY Atorvastatin Calcium (Atorvastatin Calcium), 1 TAB PO DAILY Bumetanide (Bumetanide), 1 TAB PO DAILY Cholecalciferol (Vitamin D3), 1 TAB PO DAILY, (Reported) Dapagliflozin Propanediol (Farxiga), 10 MG PO DAILY Digoxin (Digoxin), 1 TAB PO DAILY, (Reported) Hydrocodone-Acetaminophen (Hydrocodone Bitartrate/AC 5-325 mg), 1 TAB PO TID Losartan Potassium (Losartan Potassium), 25 MG PO DAILY Metoprolol Succinate (Metoprolol Succinate Er), 1 TAB PO DAILY Nitroglycerin (Ntrostat Sublingual), 0.4 MG SL PRN, (Reported) Pantoprazole Sodium Sesquihydr (Pantoprazole Sodium), 1 TAB PO DAILY, (Reported) Spironolactone (Spironolactone), 1 TAB PO DAILY Discharge Statement: "Patient was advised to return to the ER or call 911 if any headaches, dizziness, shortness of breath, chest pain, abdominal pain, bleeding, fevers, or worsening of medical condition. Patient was counseled about treatment plan, medications, possible side effects, patientverbalized understanding. All questions were answered to the best of my ability. This discharge took greater then 30 minutes in planning, reviewing documentation, counseling the patient, and discussing with other team members." ASSESSMENT ASSESSMENT Assessment acute on chronic systolic HF exacerbation Date of Service: Jul 07, 2025 Billing Provider: OMAR SOLIS MD Common Visit Codes: 85188-GMA/OBS DISCH DAY >30min OMAR SOLIS MD Jul 07, 2025 10:36
--- NOTE | 2025-07-07 12:34 | CONS ---
Pharmacy Clinical Information: From Heart Failure Fallout Report on CQM Application, Slava Julio is a 65 year old male with HFrEF ,dilated cardiomyopathy s/p CRTD -2018, pulmonary embolism, CAD s/p PCI JAMEL x4, atrial fibrillation, diabetes, pulmonary hypertension, severe mitral regurgitation, V-tach, hypertension, dyslipidemia, liver cirrhosis His home medications for CHF include dapagliflozin, losartan, metoprolol succinate, and spironolactone His inpatient medications for CHF include losartan, metoprolol succinate, and spironolactone Patient already has a discharge summary with dapagliflozin, losartan, metoprolol succinate, and spironolactone for HFrEF GDMT home medications [facility] Jul 07, 2025 12:34
[2025-07-07 13:00] VITALS: BP 100/66; PULSE 69; RESP 17; O2SAT 100
--- NOTE | 2025-07-07 16:50 | DVHPN2 ---
Progress Note - Dictate Date Seen: Jul 07, 2025 Medical Necessity Reason Pt with a Central, PICC or Fol: No Subjective No new complaints No further nausea and vomiting Patient is tolerating diet Liver enzymes are trending down vital signs Vital Sign Date Time Temp Pulse Resp B/P (MAP) Pulse Ox O2 Delivery O2 Flow Rate FiO2 07/07/25 13:00 69 17 100/66 (77) 100 07/07/25 09:00 98.2 98.2 07/07/25 07:30 Room Air* 0 21 Total Intake and Output 07/06/25 07/06/25 07/07/25 15:00 23:00 07:00 Intake Total 900 ml 1500 ml Output Total 900 ml 800 ml Balance 0 ml 700 ml medications Current Medications Medications Dose Ordered Sig/Brian Route Start Time Stop Time Status Last Admin Dose Admin Acetaminophen 650 mg Q6HP PRN PO 07/03/25 20:45 Nitroglycerin 0.4 mg Q5MINP PRN SL 07/03/25 20:45 07/04/25 20:43 0.4 MG Pantoprazole Sodium 40 mg DAILY@0600 PO 07/04/25 06:00 07/07/25 06:07 40 MG Amiodarone HCl 200 mg BID PO 07/03/25 22:00 07/07/25 09:37 200 MG Aspirin 81 mg DAILY PO 07/04/25 10:00 07/07/25 09:38 81 MG Bumetanide 1 mg DAILY PO 07/04/25 10:00 07/07/25 09:37 1 MG Digoxin 0.125 mg DAILY PO 07/04/25 10:00 07/07/25 09:38 0.125 MG Losartan Potassium 25 mg DAILY PO 07/04/25 10:00 07/06/25 11:18 25 MG Spironolactone 25 mg DAILY PO 07/04/25 10:00 07/07/25 09:37 25 MG Enoxaparin Sodium 90 mg BID SC 07/03/25 21:00 07/06/25 10:00 90 MG Atorvastatin Calcium 40 mg HS PO 07/03/25 22:00 07/06/25 21:49 40 MG Metoprolol Succinate 25 mg DAILY PO 07/04/25 10:00 07/05/25 10:02 25 MG Ondansetron HCl 4 mg Q4HPRN PRN IV 07/04/25 15:30 07/05/25 21:33 4 MG Morphine Sulfate 2 mg Q30M PRN IV 07/05/25 14:30 07/06/25 12:35 2 MG Sucralfate 1 gm BID@0600,2200 PO 07/05/25 22:00 07/07/25 06:07 1 GM Morphine Sulfate 0.5 mg Q4H PRN IV 07/07/25 06:30 07/07/25 11:00 0.5 MG objective General Appearance: Alert, Oriented X3, No acute distress HEENT: Atraumatic, PERRLA, EOMI, Mucous membr. moist/pink Neck: Supple Lungs: Clear to auscultation, Normal air movement Cardiovascular: Regular rate, Normal S1, Normal S2, No murmurs, Gallops, Rubs Abdomen: Normal bowel sounds, Soft, No tenderness laboratory and microbiology Laboratory Tests 07/06/25 05:23 Test 07/06/25 05:23 Range/Units Serum Glucose 78 74-106 mg/dL Problems(with codes): (1) Nausea & vomiting (2) Elevated liver enzymes (3) Atypical chest pain (4) CHF exacerbation Prognosis Plan Continue supportive care Discharge planning is in progress Outpatient follow up with GI Services in clinic for any ongoing GI symptoms Plan discussed with: Other (Blessing Mcintosh) LESTER REGALADO MD Jul 07, 2025 16:50
== END 2025-07-07 17:20 | disposition home or self-care (01) | DRG 190 ==
LOC: ER 15:42 → OVERFLOW 20:42 → TELE-CENTR 20:46 → TELE-WESTW 07-07 08:39
PROVIDERS: ADMIT Hospitalist; ATTEND Hospitalist
DX: I24.9 Acute ischemic heart disease, unspecified (principal); I21.A1 Myocardial infarction type 2; I50.23 Acute on chronic systolic (congestive) heart failure; I11.0 Hypertensive heart disease with heart failure; D68.59 Other primary thrombophilia; I27.20 Pulmonary hypertension, unspecified; I42.0 Dilated cardiomyopathy; Z79.01 Long term (current) use of anticoagulants; I34.0 Nonrheumatic mitral (valve) insufficiency; E11.9 Type 2 diabetes mellitus without complications; K74.60 Unspecified cirrhosis of liver; E78.2 Mixed hyperlipidemia; I48.0 Paroxysmal atrial fibrillation; I25.10 Atherosclerotic heart disease of native coronary artery without angina pectoris; I42.8 Other cardiomyopathies; Z86.711 Personal history of pulmonary embolism; Z98.61 Coronary angioplasty status; Z95.0 Presence of cardiac pacemaker; Z87.891 Personal history of nicotine dependence; Z83.3 Family history of diabetes mellitus; Z82.49 Family history of ischemic heart disease and other diseases of the circulatory system; Z82.3 Family history of stroke
CPT/HCPCS: 36415; 71045; 76642; 80048; 80053; 81001; 83690; 83880; 84484; 85007; 85025; 85027; 87081; 93005; 96374; 96375; 97163; G0378; J2405